=== PATIENT | female | born 1950 | race Hispanic/Latino ===

== ENCOUNTER 2019-02-03 17:28 | Inpatient (IN) | payer OTHER ==
[~2019-02-03 17:28] MED LIST: LASIX IV ONE
[2019-02-03] MEDS ORDERED: NACL 0.9% 1000 ML 1,000 ML IV ONE (17:50)
--- NOTE | 2019-02-03 17:54 | Emergency Department Report ---
ED Altered Mental Status HPI - General Stated Complaint: SEPSIS Time Seen by Provider: 02/03/19 17:43 - History of Present Illness Initial Comments: Patient is unknown age, unknown medical history. EMS stated that neighbors called 911 because patient with a wheelchair came to the door and stating that his is not responding well, unknown time. EMS stated that when they walked into the house they found the patient on the ground with decre ase in responsiveness, with a blood pressure of 80/42 with a low grade temperature. House is filthy and there is a lot of feces on the floor. Upon arrival to the ER patient is obtunded that she respond to her name. Sepsis protocol initiated. MD Complaint: altered mental status, decreased responsiveness - Related Data Allergies Allergy/AdvReac Type Severity Reaction Status Date / Time No Known Allergies Allergy Unverified 02/03/19 18:28 ED Review of Systems ROS: Stated complaint: SEPSIS Other details as noted in HPI Comment: Unobtainable due to pts medical conditions ED Physical Exam - General General appearance: obtunded - Head Head exam: Present: atraumatic, normocephalic, normal inspection - Eye Eye exam: Present: normal appearance, other (pale conjuctiva) - ENT ENT exam: Present: mucous membranes dry - Neck Neck exam: Present: normal inspection, full ROM. Absent: tenderness, meningismus, lymphadenopathy, thyromegaly - Respiratory Respiratory exam: Present: normal lung sounds bilaterally - Cardiovascular Cardiovascular Exam: Present: tachycardia - GI/Abdominal GI/Abdominal exam: Present: soft, normal bowel sounds. Absent: distended, tenderness, guarding, rebound, rigid, organomegaly, mass, bruit, pulsatile mass, hernia - Rectal Rectal exam: Present: normal inspection, normal rectal tone, heme (+) stool, black stool. Absent: bloody stool, fecal impaction, hemorrhoids, mass, tenderness - Extremities Exam Extremities exam: Present: normal inspection, full ROM, normal capillary refill - Back Exam Back exam: Present: normal inspection, full ROM. Absent: CVA tenderness (R), CVA tenderness (L), muscle spasm, paraspinal tenderness, vertebral tenderness - Neurological Exam Neurological exam: Present: altered - Skin Skin exam: Present: dry, intact - Assessment Assessment Interval: Baseline - Level of Consciousness 1a. Level of Consciousness: arousable/minor stimuli - LOC Questions 1b. LOC Questions: answers 1 question correctly - LOC Command 1c. LOC Commands: performs 1 task correctly - Best Gaze 2. Best Gaze: normal - Visual 3. Visual: no visual loss - Facial Palsy 4. Facial Palsy: normal symmetrical movement - Motor Arm 5a. Motor Arm Left: no drift 5b. Motor Arm Right: no drift - Motor Leg 6a. Motor Leg Left: no drift 6b. Motor Leg Right: no drift - Limb Ataxia 7. Limb Ataxia: absent - Sensory 8. Sensory: normal - Best Language 9. Best Language: no aphasia - Dysarthria 10. Dysarthria: normal - Extinction and Inattention 11. Extinction/Inattention: no abnormality - Scoring Total Score: 3 Stroke Severity: Minor Stroke ED Course Vital Signs 02/03/19 02/03/19 02/03/19 17:42 18:00 18:39 Temperature Pulse Rate 92 H 91 H Pulse Rate [ Bilateral] Pulse Rate [ From Monitor] Respiratory 20 21 Rate Respiratory Rate [Bilateral ] Blood Pressure 96/37 Blood Pressure [Right] O2 Sat by Pulse Oximetry 02/03/19 02/03/19 02/03/19 19:00 19:14 20:01 Temperature 98.2 F Pulse Rate 97 H 101 H Pulse Rate [ Bilateral] Pulse Rate [ From Monitor] Respiratory 24 23 Rate Respiratory Rate [Bilateral ] Blood Pressure 99/45 Blood Pressure 98/35 [Right] O2 Sat by Pulse 97 99 Oximetry 02/03/19 02/03/19 02/03/19 20:35 20:42 20:54 Temperature Pulse Rate 103 H 97 H Pulse Rate [ 102 H Bilateral] Pulse Rate [ From Monitor] Respiratory 22 16 Rate Respiratory 23 Rate [Bilateral ] Blood Pressure Blood Pressure 99/38 [Right] O2 Sat by Pulse 94 Oximetry 02/03/19 02/03/19 02/03/19 21:00 21:09 21:15 Temperature Pulse Rate 95 H 98 H Pulse Rate [ 103 H Bilateral] Pulse Rate [ From Monitor] Respiratory 23 23 Rate Respiratory 28 H Rate [Bilateral ] Blood Pressure 94/33 87/28 Blood Pressure [Right] O2 Sat by Pulse 84 Oximetry 02/03/19 02/03/19 02/03/19 21:30 21:45 22:01 Temperature Pulse Rate 102 H 98 H 98 H Pulse Rate [ Bilateral] Pulse Rate [ From Monitor] Respiratory 28 H 15 20 Rate Respiratory Rate [Bilateral ] Blood Pressure 86/36 87/35 104/48 Blood Pressure [Right] O2 Sat by Pulse 100 100 95 Oximetry 02/03/19 02/03/19 02/03/19 22:15 22:31 22:36 Temperature Pulse Rate 94 H 88 Pulse Rate [ Bilateral] Pulse Rate [ 88 From Monitor] Respiratory 23 22 40 H Rate Respiratory Rate [Bilateral ] Blood Pressure 104/48 138/85 Blood Pressure [Right] O2 Sat by Pulse 63 L 100 78 L Oximetry 02/03/19 02/03/19 02/03/19 22:45 23:24 23:50 Temperature Pulse Rate 85 107 H 106 H Pulse Rate [ Bilateral] Pulse Rate [ From Monitor] Respiratory 14 38 H 35 H Rate Respiratory Rate [Bilateral ] Blood Pressure 144/100 145/82 145/82 Blood Pressure [Right] O2 Sat by Pulse 99 93 Oximetry 02/04/19 00:00 Temperature 97.5 F L Pulse Rate Pulse Rate [ Bilateral] Pulse Rate [ From Monitor] Respiratory Rate Respiratory Rate [Bilateral ] Blood Pressure Blood Pressure [Right] O2 Sat by Pulse Oximetry - Central Line Placement Right Femoral Consent Obtained: emergent situation Time Out Performed: Yes Patient Placed on Monitor/Pulse Ox: Yes Prep: mask, gown, gloves Central Line Prep: Povidone-Iodine 1%, Chlorhexidine scrub, sterile drapes applied Local Anesthesia Used: Lidocaine 2% Central Line Lumen Inserted: triple Central Line Position: good blood return, all ports aspirated, flus, sutured in place with 2-0 Dressing Applied: Tegaderm, sterile gauze/tape Patient Tolerated Procedure: well, no complications Complications: none - Lab Data Result diagrams: 02/04/19 04:35 02/04/19 10:59 Lab Results 02/03/19 02/03/19 02/03/19 Range/Units 02:57 17:48 18:06 WBC 6.3 (4.5-11.0) K/mm3 RBC 0.88 L (3.65-5.03) M/mm3 Hgb 1.9 L* (10.1-14.3) gm/dl Hct 7.1 L* (30.3-42.9) % MCV 81 (79-97) fl MCH 22 L (28-32) pg MCHC 27 L (30-34) % RDW 23.3 H (13.2-15.2) % Plt Count 489 H (140-440) K/mm3 Lymph % (Auto) 17.6 (13.4-35.0) % [place] % (Auto) 10.1 H (0.0-7.3) % Eos % (Auto) 0.1 (0.0-4.3) % Baso % (Auto) 1.0 (0.0-1.8) % Lymph # 1.1 L (1.2-5.4) K/mm3 [place] # 0.6 (0.0-0.8) K/mm3 Eos # 0.0 (0.0-0.4) K/mm3 Baso # 0.1 (0.0-0.1) K/mm3 Seg Neutrophils % 71.2 H (40.0-70.0) % Seg Neutrophils # 4.5 (1.8-7.7) K/mm3 PT (12.2-14.9) Sec. INR (0.87-1.13) APTT (24.2-36.6) Sec. Sodium (137-145) mmol/L Potassium (3.6-5.0) mmol/L Chloride (98-107) mmol/L Carbon Dioxide (22-30) mmol/L Anion Gap mmol/L BUN (7-17) mg/dL Creatinine (0.7-1.2) mg/dL Estimated GFR ml/min BUN/Creatinine Ratio % Glucose (65-100) mg/dL POC Glucose 98 (70-105) Lactic Acid (0.7-2.0) mmol/L Calcium (8.4-10.2) mg/dL Total Bilirubin (0.1-1.2) mg/dL AST (5-40) units/L ALT (7-56) units/L Alkaline Phosphatase (35-129) units/L Troponin T (0.00-0.029) ng/mL NT-Pro-B Natriuret Pep (0-900) pg/mL Total Protein (6.3-8.2) g/dL Albumin (3.9-5) g/dL Albumin/Globulin Ratio % Triglycerides (2-149) mg/dL Cholesterol (50-199) mg/dL LDL Cholesterol Direct (50-130) mg/dL HDL Cholesterol (40-59) mg/dL Cholesterol/HDL Ratio % Urine Color Yellow (Yellow) Urine Turbidity Clear (Clear) Urine pH 6.0 (5.0-7.0) Ur Specific [place] 1.011 (1.003-1.030) Urine Protein <15 mg/dl (Negative) mg/dL Urine Glucose (UA) Neg (Negative) mg/dL Urine Ketones Neg (Negative) mg/dL Urine Blood Neg (Negative) Urine Nitrite Neg (Negative) Urine Bilirubin Neg (Negative) Urine Urobilinogen < 2.0 (<2.0) mg/dL Ur Leukocyte Esterase Neg (Negative) Urine WBC (Auto) 7.0 H (0.0-6.0) /HPF Urine RBC (Auto) 8.0 (0.0-6.0) /HPF U Epithel Cells (Auto) 1.0 (0-13.0) /HPF Urine Bacteria (Auto) 2+ (Negative) /HPF Hyaline Casts 22 /LPF Urine Mucus 3+ /HPF Blood Type Antibody Screen Crossmatch 02/03/19 02/03/19 02/03/19 Range/Units 18:06 18:06 18:08 WBC (4.5-11.0) K/mm3 RBC (3.65-5.03) M/mm3 Hgb (10.1-14.3) gm/dl Hct (30.3-42.9) % MCV (79-97) fl MCH (28-32) pg MCHC (30-34) % RDW (13.2-15.2) % Plt Count (140-440) K/mm3 Lymph % (Auto) (13.4-35.0) % [place] % (Auto) (0.0-7.3) % Eos % (Auto) (0.0-4.3) % Baso % (Auto) (0.0-1.8) % Lymph # (1.2-5.4) K/mm3 [place] # (0.0-0.8) K/mm3 Eos # (0.0-0.4) K/mm3 Baso # (0.0-0.1) K/mm3 Seg Neutrophils % (40.0-70.0) % Seg Neutrophils # (1.8-7.7) K/mm3 PT (12.2-14.9) Sec. INR (0.87-1.13) APTT (24.2-36.6) Sec. Sodium 145 (137-145) mmol/L Potassium 3.3 L (3.6-5.0) mmol/L Chloride 100.9 (98-107) mmol/L Carbon Dioxide 17 L (22-30) mmol/L Anion Gap 30 mmol/L BUN 16 (7-17) mg/dL Creatinine 0.9 (0.7-1.2) mg/dL Estimated GFR 58 ml/min BUN/Creatinine Ratio 18 % Glucose 94 (65-100) mg/dL POC Glucose (70-105) Lactic Acid (0.7-2.0) mmol/L Calcium 7.9 L (8.4-10.2) mg/dL Total Bilirubin 0.30 (0.1-1.2) mg/dL AST 35 (5-40) units/L ALT 27 (7-56) units/L Alkaline Phosphatase 117 (35-129) units/L Troponin T 0.134 H* (0.00-0.029) ng/mL NT-Pro-B Natriuret Pep 9160 H (0-900) pg/mL Total Protein 5.1 L (6.3-8.2) g/dL Albumin 2.8 L (3.9-5) g/dL Albumin/Globulin Ratio 1.2 % Triglycerides 164 H (2-149) mg/dL Cholesterol 125 (50-199) mg/dL LDL Cholesterol Direct 75 (50-130) mg/dL HDL Cholesterol 31 L (40-59) mg/dL Cholesterol/HDL Ratio 4.03 % Urine Color (Yellow) Urine Turbidity (Clear) Urine pH (5.0-7.0) Ur Specific [place] (1.003-1.030) Urine Protein (Negative) mg/dL Urine Glucose (UA) (Negative) mg/dL Urine Ketones (Negative) mg/dL Urine Blood (Negative) Urine Nitrite (Negative) Urine Bilirubin (Negative) Urine Urobilinogen (<2.0) mg/dL Ur Leukocyte Esterase (Negative) Urine WBC (Auto) (0.0-6.0) /HPF Urine RBC (Auto) (0.0-6.0) /HPF U Epithel Cells (Auto) (0-13.0) /HPF Urine Bacteria (Auto) (Negative) /HPF Hyaline Casts /LPF Urine Mucus /HPF Blood Type A POSITIVE Antibody Screen Negative Crossmatch See Detail 02/03/19 02/03/19 02/03/19 Range/Units 18:08 19:24 19:24 WBC (4.5-11.0) K/mm3 RBC (3.65-5.03) M/mm3 Hgb (10.1-14.3) gm/dl Hct (30.3-42.9) % MCV (79-97) fl MCH (28-32) pg MCHC (30-34) % RDW (13.2-15.2) % Plt Count (140-440) K/mm3 Lymph % (Auto) (13.4-35.0) % [place] % (Auto) (0.0-7.3) % Eos % (Auto) (0.0-4.3) % Baso % (Auto) (0.0-1.8) % Lymph # (1.2-5.4) K/mm3 [place] # (0.0-0.8) K/mm3 Eos # (0.0-0.4) K/mm3 Baso # (0.0-0.1) K/mm3 Seg Neutrophils % (40.0-70.0) % Seg Neutrophils # (1.8-7.7) K/mm3 PT 19.3 H (12.2-14.9) Sec. INR 1.52 H (0.87-1.13) APTT 30.3 (24.2-36.6) Sec. Sodium (137-145) mmol/L Potassium (3.6-5.0) mmol/L Chloride (98-107) mmol/L Carbon Dioxide (22-30) mmol/L Anion Gap mmol/L BUN (7-17) mg/dL Creatinine (0.7-1.2) mg/dL Estimated GFR ml/min BUN/Creatinine Ratio % Glucose (65-100) mg/dL POC Glucose (70-105) Lactic Acid 9.90 H* (0.7-2.0) mmol/L Calcium (8.4-10.2) mg/dL Total Bilirubin (0.1-1.2) mg/dL AST (5-40) units/L ALT (7-56) units/L Alkaline Phosphatase (35-129) units/L Troponin T 0.139 H* (0.00-0.029) ng/mL NT-Pro-B Natriuret Pep (0-900) pg/mL Total Protein (6.3-8.2) g/dL Albumin (3.9-5) g/dL Albumin/Globulin Ratio % Triglycerides (2-149) mg/dL Cholesterol (50-199) mg/dL LDL Cholesterol Direct (50-130) mg/dL HDL Cholesterol (40-59) mg/dL Cholesterol/HDL Ratio % Urine Color (Yellow) Urine Turbidity (Clear) Urine pH (5.0-7.0) Ur Specific [place] (1.003-1.030) Urine Protein (Negative) mg/dL Urine Glucose (UA) (Negative) mg/dL Urine Ketones (Negative) mg/dL Urine Blood (Negative) Urine Nitrite (Negative) Urine Bilirubin (Negative) Urine Urobilinogen (<2.0) mg/dL Ur Leukocyte Esterase (Negative) Urine WBC (Auto) (0.0-6.0) /HPF Urine RBC (Auto) (0.0-6.0) /HPF U Epithel Cells (Auto) (0-13.0) /HPF Urine Bacteria (Auto) (Negative) /HPF Hyaline Casts /LPF Urine Mucus /HPF Blood Type Antibody Screen Crossmatch 02/03/19 Range/Units 19:24 WBC (4.5-11.0) K/mm3 RBC (3.65-5.03) M/mm3 Hgb (10.1-14.3) gm/dl Hct (30.3-42.9) % MCV (79-97) fl MCH (28-32) pg MCHC (30-34) % RDW (13.2-15.2) % Plt Count (140-440) K/mm3 Lymph % (Auto) (13.4-35.0) % [place] % (Auto) (0.0-7.3) % Eos % (Auto) (0.0-4.3) % Baso % (Auto) (0.0-1.8) % Lymph # (1.2-5.4) K/mm3 [place] # (0.0-0.8) K/mm3 Eos # (0.0-0.4) K/mm3 Baso # (0.0-0.1) K/mm3 Seg Neutrophils % (40.0-70.0) % Seg Neutrophils # (1.8-7.7) K/mm3 PT (12.2-14.9) Sec. INR (0.87-1.13) APTT (24.2-36.6) Sec. Sodium (137-145) mmol/L Potassium (3.6-5.0) mmol/L Chloride (98-107) mmol/L Carbon Dioxide (22-30) mmol/L Anion Gap mmol/L BUN (7-17) mg/dL Creatinine (0.7-1.2) mg/dL Estimated GFR ml/min BUN/Creatinine Ratio % Glucose (65-100) mg/dL POC Glucose (70-105) Lactic Acid 6.30 H* (0.7-2.0) mmol/L Calcium (8.4-10.2) mg/dL Total Bilirubin (0.1-1.2) mg/dL AST (5-40) units/L ALT (7-56) units/L Alkaline Phosphatase (35-129) units/L Troponin T (0.00-0.029) ng/mL NT-Pro-B Natriuret Pep (0-900) pg/mL Total Protein (6.3-8.2) g/dL Albumin (3.9-5) g/dL Albumin/Globulin Ratio % Triglycerides (2-149) mg/dL Cholesterol (50-199) mg/dL LDL Cholesterol Direct (50-130) mg/dL HDL Cholesterol (40-59) mg/dL Cholesterol/HDL Ratio % Urine Color (Yellow) Urine Turbidity (Clear) Urine pH (5.0-7.0) Ur Specific [place] (1.003-1.030) Urine Protein (Negative) mg/dL Urine Glucose (UA) (Negative) mg/dL Urine Ketones (Negative) mg/dL Urine Blood (Negative) Urine Nitrite (Negative) Urine Bilirubin (Negative) Urine Urobilinogen (<2.0) mg/dL Ur Leukocyte Esterase (Negative) Urine WBC (Auto) (0.0-6.0) /HPF Urine RBC (Auto) (0.0-6.0) /HPF U Epithel Cells (Auto) (0-13.0) /HPF Urine Bacteria (Auto) (Negative) /HPF Hyaline Casts /LPF Urine Mucus /HPF Blood Type Antibody Screen Crossmatch - Radiology Data Radiology results: report reviewed Chest x-ray show pulmonary vascular congestion. - Medical Decision Making Patient is unknown age, unknown medical history. EMS stated that neighbors called 911 because patient with a wheelchair came to the door and stating that his is not responding well, unknown time. EMS stated that when they walked into the house they found the patient on the ground with decrease in responsiveness, with a blood pressure of 80/42 with a low grade temperature. House is filthy and there is a lot of feces on the floor. Upon arrival to the ER patient is obtunded that she respond to her name. Sepsis protocol initiated. Patient found to have a hemoglobin of 1.9 and hematocrit of 7.1. Stool guaiac is positive. Vision also found to have a lactic acid of 9.9. Patient started on normal saline. 2 units of PRBC. I discussed the patient is Dr. Buck Gonzalez from gastroenterology, he advised to start PPI drip and keep patient nothing by mouth after midnight for possible endoscopy in the morning. I discussed the patient is Dr. Robles, he accepted the patient to be admitted to medical service and advised to discuss with the nurse practitioner Karen is present at the time of the discussion. Critical Care Time: Yes Critical care time in (mins) excluding proc time.: 45 Critical care attestation.: If time is entered above; I have spent that time in minutes in the direct care of this critically ill patient, excluding procedure time. ED Disposition Clinical Impression: Sepsis, Gastrointestinal hemorrhage, Altered mental status, COPD exacerbation, CHF exacerbation Disposition: OP ADMIT IP TO THIS HOSP Is pt being admited?: Yes Condition: Stable
--- NOTE | 2019-02-03 18:39 | XRay Report ---
PROCEDURE: XR CHEST 1V AP TECHNIQUE: Chest radiograph single view. HISTORY: sepsis COMPARISONS: None . FINDINGS: Heart: Heart is enlarged. Mediastinum/Vessels: Central vascular congestive changes noted. Lungs/Pleural space: No focal consolidation or effusion. Bony thorax: No acute osseous abnormality. Life support devices: None. IMPRESSION: Central vascular congestive changes. Cardiomegaly. If symptoms persist or worsen, CT exam should be considered for further evaluation. This document is electronically signed by Donna Garcia MD., Feb 03 2019 06:37:30 PM ET
[2019-02-03 18:47] LABS: Red Blood Count 0.88 M/mm3 (3.65-5.03)
[2019-02-03 18:49] LABS: Hematocrit 7.1 % (30.3-42.9); Hemoglobin 1.9 gm/dl (10.1-14.3); Mean Corpuscular HGB Conc 27 % (30-34); Mean Corpuscular Volume 81 fl (79-97); Platelet Count 489 K/mm3 (140-440); Red Cell Distribution Width 23.3 % (13.2-15.2)
[2019-02-03 18:50] LABS: Basophils # (Auto) 0.1 K/mm3 (0.0-0.1); Eosinophils % (Auto) 0.1 % (0.0-4.3); Lymphocytes # (Auto) 1.1 K/mm3 (1.2-5.4); Lymphocytes % (Auto) 17.6 % (13.4-35.0); Monocytes # (Auto) 0.6 K/mm3 (0.0-0.8); Monocytes % (Auto) 10.1 % (0.0-7.3)
[2019-02-03] MEDS ORDERED: NACL 0.9% 500 ML 500 ML IV ONE ×2 (18:58→21:36)
[2019-02-03 18:59] LABS: Albumin 2.8 g/dL (3.9-5); Calcium 7.9 mg/dL (8.4-10.2)
[2019-02-03] MEDS ORDERED: ZOSYN/NS 2.25 GM/50ML 2.25 GM/50 ML BAG IV ONE (19:00)
[2019-02-03 19:22] LABS: Chol/HDL Ratio 4.03 %
[2019-02-03 19:53] LABS: INR 1.52 (0.87-1.13); Partial Thromboplastin Time 30.3 Sec. (24.2-36.6)
[2019-02-03] MEDS ORDERED: ATROVENT IH ONE (19:59)
[2019-02-03] MEDS ORDERED: PROVENTIL IH ONE (20:00)
[2019-02-03] MEDS ORDERED: REGLAN IV PRN (20:27)
[2019-02-03] MEDS ORDERED: SODIUM CHLORIDE FLUSH SYRINGE 10 ML IV PRN (20:27)
--- NOTE | 2019-02-03 20:45 | History and Physical Report ---
<AMIRAH MERINO - Last Filed: 02/04/19 01:00> History of Present Illness Date of examination: 02/03/19 Date of admission: 02/03/2019 Chief complaint: Postural mental status, fall, respiratory distress History of present illness: Patient is about 71-year-old female with PMHx of CHF, COPD, who was brought to the ER by EMS after a fall at home, altered mental status, respiratory distress. Per EMS patient was found in severe respiratory distress, laying on the floor and cover in her feces. According to EMS the had asked a neighbor to call EMS because the patient fell on the floor and he was unable to pick her up, they don't have a phone (the reports that he is 80 years old and he is 9 years older than her, he states that she had been sick for a few days, she had trouble breathing, and he had been taking a lot of "goody bags" for pain). On arrival to the ER patient was lethargic, responded to name, her blood pressure was 80/54, the temperature was 97.1, respiration was 40 BPM, she had h&h of 1.9/7.1, GI was consulted and she is admitted for acute GI bleed, acute blood loss anemia, CHF (BNP was 9100) and COPD exacerbation. Past History Past Medical History: COPD, heart failure, hypertension Past Surgical History: No surgical history Social history: , lives with family (spouse) Family history: no significant family history Medications and Allergies Allergies Allergy/AdvReac Type Severity Reaction Status Date / Time No Known Allergies Allergy Unverified 02/03/19 18:28 Home Medications Medication Instructions Recorded Confirmed Last Taken Type No Known Home Medications [No 02/07/19 02/07/19 Unknown History Reported Home Medications] Active Meds: Active Medications Pantoprazole Sodium 80 mg/ (Sodium Chloride) 100 mls @ 10 mls/hr IV DIRECT JOEL Review of Systems ROS unobtainable: due to mental status (5. Mental status) Exam - Constitutional Vitals: Temp Pulse Resp BP Pulse Ox 98.2 F 103 H 22 99/38 94 02/03/19 19:00 02/03/19 20:35 02/03/19 20:35 02/03/19 20:35 02/03/19 20:35 General appearance: Present: severe distress - EENT ENT: hearing intact - Neck Neck: Present: normal ROM - Respiratory Respiratory effort: normal Respiratory: bilateral: rhonchi - Cardiovascular Rhythm: regular Heart Sounds: Present: S1 & S2 - Extremities Extremities: no ischemia Peripheral Pulses: within normal limits - Abdominal General gastrointestinal: Present: non-tender, non-distended - Rectal Rectal Exam: deferred - Integumentary Integumentary: Present: warm, dry - Musculoskeletal Musculoskeletal: generalized weakness - Psychiatric Psychiatric: agitated - Neurologic Neurologic: moves all extremities Results - Labs CBC & Chem 7: 02/03/19 18:06 02/03/19 18:08 Labs: Laboratory Last Values WBC 6.3 K/mm3 (4.5-11.0) 02/03/19 18:06 RBC 0.88 M/mm3 (3.65-5.03) L 02/03/19 18:06 Hgb 1.9 gm/dl (10.1-14.3) L* 02/03/19 18:06 Hct 7.1 % (30.3-42.9) L* 02/03/19 18:06 MCV 81 fl (79-97) 02/03/19 18:06 MCH 22 pg (28-32) L 02/03/19 18:06 MCHC 27 % (30-34) L 02/03/19 18:06 RDW 23.3 % (13.2-15.2) H 02/03/19 18:06 Plt Count 489 K/mm3 (140-440) H 02/03/19 18:06 Lymph % (Auto) 17.6 % (13.4-35.0) 02/03/19 18:06 [place] % (Auto) 10.1 % (0.0-7.3) H 02/03/19 18:06 Eos % (Auto) 0.1 % (0.0-4.3) 02/03/19 18:06 Baso % (Auto) 1.0 % (0.0-1.8) 02/03/19 18:06 Lymph # 1.1 K/mm3 (1.2-5.4) L 02/03/19 18:06 [place] # 0.6 K/mm3 (0.0-0.8) 02/03/19 18:06 Eos # 0.0 K/mm3 (0.0-0.4) 02/03/19 18:06 Baso # 0.1 K/mm3 (0.0-0.1) 02/03/19 18:06 Seg Neutrophils % 71.2 % (40.0-70.0) H 02/03/19 18:06 Seg Neutrophils # 4.5 K/mm3 (1.8-7.7) 02/03/19 18:06 PT 19.3 Sec. (12.2-14.9) H 02/03/19 19:24 INR 1.52 (0.87-1.13) H 02/03/19 19:24 APTT 30.3 Sec. (24.2-36.6) 02/03/19 19:24 POC ABG pH 7.515 (7.35-7.45) H 02/03/19 20:30 POC ABG pO2 121 (80-105) H 02/03/19 20:30 POC ABG HCO3 16.5 (22-26 mml/L) 02/03/19 20:30 POC ABG Total CO2 17 (23-27mmol/L) 02/03/19 20:30 POC ABG O2 Sat 99 02/03/19 20:30 POC ABG Base Excess -6 ((-2) - (+3)mmol/L) 02/03/19 20:30 30 % 02/03/19 20:30 Sodium 145 mmol/L (137-145) 02/03/19 18:08 Potassium 3.3 mmol/L (3.6-5.0) L 02/03/19 18:08 Chloride 100.9 mmol/L (98-107) 02/03/19 18:08 Carbon Dioxide 17 mmol/L (22-30) L 02/03/19 18:08 30 mmol/L 02/03/19 18:08 BUN 16 mg/dL (7-17) 02/03/19 18:08 0.9 mg/dL (0.7-1.2) 02/03/19 18:08 Estimated GFR 58 ml/min 02/03/19 18:08 18 % 02/03/19 18:08 Glucose 94 mg/dL (65-100) 02/03/19 18:08 POC Glucose 98 (70-105) 02/03/19 17:48 Lactic Acid 6.30 mmol/L (0.7-2.0) H* 02/03/19 19:24 Calcium 7.9 mg/dL (8.4-10.2) L 02/03/19 18:08 0.30 mg/dL (0.1-1.2) 02/03/19 18:08 AST 35 units/L (5-40) 02/03/19 18:08 ALT 27 units/L (7-56) 02/03/19 18:08 117 units/L (35-129) 02/03/19 18:08 0.139 ng/mL (0.00-0.029) H* 02/03/19 19:24 NT-Pro-B Natriuret Pep 9160 pg/mL (0-900) H 02/03/19 18:06 5.1 g/dL (6.3-8.2) L 02/03/19 18:08 2.8 g/dL (3.9-5) L 02/03/19 18:08 1.2 % 02/03/19 18:08 Triglycerides 164 mg/dL (2-149) H 02/03/19 18:08 Cholesterol 125 mg/dL (50-199) 02/03/19 18:08 75 mg/dL (50-130) 02/03/19 18:08 31 mg/dL (40-59) L 02/03/19 18:08 4.03 % 02/03/19 18:08 Blood Type A POSITIVE 02/03/19 18:06 Antibody Screen Negative 02/03/19 18:06 Crossmatch See Detail 02/03/19 18:06 Assessment and Plan Assessment and plan: Patient is a 70-year-old female (unsure of actual age) brought by with acute respiratory distress in poor condition, she is being treated for GI bleed, CHF, respiratory distress, she will be admitted to ICU for management. 1. Acute encephalopathy 2. Severe respiratory alkalosis 3. Acute GI bleed 4. Acute blood loss anemia (due to #2) 5. Hypokalemia 6. CHF with acute exacerbation (last echo and EF unknown) 7. COPD Plan: Patient is admitted for acute prescribed to be distress Stop start patient on BiPAP to protect airway Consult GI for acute GI bleed 4 units of packed RBCs IV Lasix after fourth bag if BP stable Repeat CBC after the last bag Avoid NSAIDs Keep NPO Every replacement BMP in the a.m. No DVT prophylaxis (GI bleed) Advance Directives: Yes Contraindication Mechanical VTE Prophylaxis: Contraindicated (acute GI bleed) Plan of care discussed with patient/family: Yes <NAVID CISNEROS - Last Filed: 02/08/19 22:33> History of Present Illness Date of admission: 02/03/19 20:30 Medications and Allergies Active Meds: Active Medications Albuterol/Ipratropium (Duoneb *Not For Prn Use*) 1 ampul IH Q6HRT [facility] Pantoprazole Sodium 80 mg/ (Sodium Chloride) 100 mls @ 10 mls/hr IV DIRECT [facility] Last Admin: 02/03/19 21:18 Dose: 8 mg/hr, 10 mls/hr Documented by: Potassium Chloride (Kcl 10meq/100ml) 10 meq in 100 mls @ 100 mls/hr IV Q1H [facility] Stop: 02/04/19 05:59 Last Admin: 02/04/19 02:43 Dose: 100 mls/hr Documented by: Ondansetron HCl (Zofran) 4 mg IV Q8H PRN PRN Reason: Nausea And Vomiting Sodium Chloride (Sodium Chloride Flush Syringe 10 Ml) 10 ml IV BID [facility] Last Admin: 02/03/19 22:48 Dose: 10 ml Documented by: Sodium Chloride (Sodium Chloride Flush Syringe 10 Ml) 10 ml IV PRN PRN PRN Reason: LINE FLUSH Exam - Constitutional Vitals: Temp Pulse Resp BP Pulse Ox 97.5 F L 106 H 38 H 145/82 90 02/04/19 00:00 02/03/19 23:50 02/04/19 02:36 02/03/19 23:50 02/04/19 02:36 Results - Labs CBC & Chem 7: 02/08/19 04:26 02/08/19 04:26 Labs: Laboratory Last Values WBC 6.3 K/mm3 (4.5-11.0) 02/03/19 18:06 RBC 0.88 M/mm3 (3.65-5.03) L 02/03/19 18:06 Hgb 11.5 gm/dl (10.1-14.3) D 02/04/19 00:27 Hct 35.6 % (30.3-42.9) D 02/04/19 00:27 MCV 81 fl (79-97) 02/03/19 18:06 MCH 22 pg (28-32) L 02/03/19 18:06 MCHC 27 % (30-34) L 02/03/19 18:06 RDW 23.3 % (13.2-15.2) H 02/03/19 18:06 Plt Count 489 K/mm3 (140-440) H 02/03/19 18:06 Lymph % (Auto) 17.6 % (13.4-35.0) 02/03/19 18:06 [place] % (Auto) 10.1 % (0.0-7.3) H 02/03/19 18:06 Eos % (Auto) 0.1 % (0.0-4.3) 02/03/19 18:06 Baso % (Auto) 1.0 % (0.0-1.8) 02/03/19 18:06 Lymph # 1.1 K/mm3 (1.2-5.4) L 02/03/19 18:06 [place] # 0.6 K/mm3 (0.0-0.8) 02/03/19 18:06 Eos # 0.0 K/mm3 (0.0-0.4) 02/03/19 18:06 Baso # 0.1 K/mm3 (0.0-0.1) 02/03/19 18:06 Seg Neutrophils % 71.2 % (40.0-70.0) H 02/03/19 18:06 Seg Neutrophils # 4.5 K/mm3 (1.8-7.7) 02/03/19 18:06 PT 19.3 Sec. (12.2-14.9) H 02/03/19 19:24 INR 1.52 (0.87-1.13) H 02/03/19 19:24 APTT 30.3 Sec. (24.2-36.6) 02/03/19 19:24 POC ABG pH 7.515 (7.35-7.45) H 02/03/19 20:30 POC ABG pO2 121 (80-105) H 02/03/19 20:30 POC ABG HCO3 16.5 (22-26 mml/L) 02/03/19 20:30 POC ABG Total CO2 17 (23-27mmol/L) 02/03/19 20:30 POC ABG O2 Sat 99 02/03/19 20:30 POC ABG Base Excess -6 ((-2) - (+3)mmol/L) 02/03/19 20:30 30 % 02/03/19 20:30 Sodium 145 mmol/L (137-145) 02/03/19 18:08 Potassium 3.3 mmol/L (3.6-5.0) L 02/03/19 18:08 Chloride 100.9 mmol/L (98-107) 02/03/19 18:08 Carbon Dioxide 17 mmol/L (22-30) L 02/03/19 18:08 30 mmol/L 02/03/19 18:08 BUN 16 mg/dL (7-17) 02/03/19 18:08 0.9 mg/dL (0.7-1.2) 02/03/19 18:08 Estimated GFR 58 ml/min 02/03/19 18:08 18 % 02/03/19 18:08 Glucose 94 mg/dL (65-100) 02/03/19 18:08 POC Glucose 98 (70-105) 02/03/19 17:48 Lactic Acid 5.70 mmol/L (0.7-2.0) H* 02/04/19 01:18 Calcium 7.9 mg/dL (8.4-10.2) L 02/03/19 18:08 0.30 mg/dL (0.1-1.2) 02/03/19 18:08 AST 35 units/L (5-40) 02/03/19 18:08 ALT 27 units/L (7-56) 02/03/19 18:08 117 units/L (35-129) 02/03/19 18:08 0.139 ng/mL (0.00-0.029) H* 02/03/19 19:24 NT-Pro-B Natriuret Pep 9160 pg/mL (0-900) H 02/03/19 18:06 5.1 g/dL (6.3-8.2) L 02/03/19 18:08 2.8 g/dL (3.9-5) L 02/03/19 18:08 1.2 % 02/03/19 18:08 Triglycerides 164 mg/dL (2-149) H 02/03/19 18:08 Cholesterol 125 mg/dL (50-199) 02/03/19 18:08 75 mg/dL (50-130) 02/03/19 18:08 31 mg/dL (40-59) L 02/03/19 18:08 4.03 % 02/03/19 18:08 Yellow (Yellow) 02/03/19 02:57 Clear (Clear) 02/03/19 02:57 6.0 (5.0-7.0) 02/03/19 02:57 Ur Specific [place] 1.011 (1.003-1.030) 02/03/19 02:57 <15 mg/dl mg/dL (Negative) 02/03/19 02:57 Neg mg/dL (Negative) 02/03/19 02:57 Neg mg/dL (Negative) 02/03/19 02:57 Neg (Negative) 02/03/19 02:57 Neg (Negative) 02/03/19 02:57 Neg (Negative) 02/03/19 02:57 < 2.0 mg/dL (<2.0) 02/03/19 02:57 Ur Leukocyte Esterase Neg (Negative) 02/03/19 02:57 7.0 /HPF (0.0-6.0) H 02/03/19 02:57 8.0 /HPF (0.0-6.0) 02/03/19 02:57 U Epithel Cells (Auto) 1.0 /HPF (0-13.0) 02/03/19 02:57 2+ /HPF (Negative) 02/03/19 02:57 Hyaline Casts 22 /LPF 02/03/19 02:57 3+ /HPF 02/03/19 02:57 Blood Type A POSITIVE 02/03/19 18:06 Antibody Screen Negative 02/03/19 18:06 Crossmatch See Detail 02/03/19 18:06 Assessment and Plan Assessment and plan: 68-year-old woman with history of COPD was brought to the emergency room because she was weak for the last few days and passed out at home per the . He stated that over the last 5 years she is takes 3-4 Goody powder at night, has been having black stool. She complains of feeling cold and short of breath. In the emergency room she was extremely pale, hypotensive with systolic blood pre ssure in the 80s. Patient would upper GI bleed, severe blood loss anemia, she will be transfused rapidly red blood cells. Continue protonic drip, her Hemoccult was heme-positive, black stool, suspect gastric ulcer from NSAIDs. Hold all antihypertensives. Her cardiac enzymes is elevated, check serial cardiac enzymes, continue BiPAP. Her lactic acid is elevated, we'll continue empiric antibiotics for now. GI was consulted for the patient in the emergency room. The history is per the at bedside, the patient was unable to give a history. Prognosis guarded
[2019-02-03] MEDS: PROTONIX 80 MG in NACL 0.9% 100 ML IV SCH (21:18)
[2019-02-03] MEDS ORDERED: LASIX IV ONE (22:00)
[2019-02-03] MEDS ORDERED: LOPRESSOR PO SCH (22:00)
[2019-02-03] MEDS ORDERED: ZESTRIL PO SCH (22:00)
[2019-02-03] MEDS ORDERED: NACL 0.9% 500 ML 500 ML ONE (22:40)
[2019-02-03] MEDS: SODIUM CHLORIDE FLUSH SYRINGE 10 ML IV SCH (22:48)
[2019-02-03] MEDS ORDERED: HALDOL IM ONE (23:54)
[2019-02-04] MEDS ORDERED: LASIX ONE (00:14)
[2019-02-04] MEDS ORDERED: LASIX IV ONE (01:00)
--- NOTE | 2019-02-04 01:34 | Cat Scan Report ---
PROCEDURE: CT HEAD/BRAIN WO CON TECHNIQUE: Computerized tomography of the head was performed without contrast material. HISTORY: AMS COMPARISONS: None . FINDINGS: Skull and scalp: Normal . Paranasal sinuses: Normal . Ventricles and subarachnoid spaces: Parenchymal volume loss. Cerebrum: No evidence of hemorrhage, acute infarction or mass . Small vessel ischemic disease in the periventricular and subcortical regions. Cerebellum and brainstem: No evidence of hemorrhage, acute infarction or mass . Vasculature: Normal . IMPRESSION: No evidence of hemorrhage, acute infarction or mass . Small vessel ischemic disease in t he periventricular and subcortical regions. This document is electronically signed by Donna Garcia MD., Feb 04 2019 01:32:14 AM ET
[2019-02-04 01:44] LABS: Hematocrit 35.6 % (30.3-42.9); Hemoglobin 11.5 gm/dl (10.1-14.3)
[2019-02-04] MEDS: DUONEB *Not for PRN Use IH SCH ×3 (02:00→20:02)
[2019-02-04] MEDS: KCL 10MEQ/100ML 10 MEQ/100 ML BAG IV SCH ×4 (02:43→07:19)
[2019-02-04 03:26] LABS: Bacteria,Urine 2+ /HPF (Negative); Bilirubin,Urine NEG (Negative); Blood,Urine NEG (Negative); Color,Urine Yellow (Yellow); Hyaline Casts,Urine 22 /LPF; Mucus,Urine 3+ /HPF; Protein,Urine <15 mg/dL mg/dL (Negative); Urobilinogen,Urine < 2.0 mg/dL (<2.0)
[2019-02-04 05:08] LABS: Hematocrit 37.1 % (30.3-42.9); Hemoglobin 12.3 gm/dl (10.1-14.3); Mean Corpuscular HGB Conc 33 % (30-34); Mean Corpuscular Volume 82 fl (79-97); Platelet Count 384 K/mm3 (140-440); Red Blood Count 4.51 M/mm3 (3.65-5.03); Red Cell Distribution Width 15.9 % (13.2-15.2)
[2019-02-04 05:27] LABS: Calcium 7.9 mg/dL (8.4-10.2)
[2019-02-04] MEDS ORDERED: LASIX IV SCH (06:00)
[2019-02-04] MEDS: ZOSYN/NS 3.375GM/50ML 3.375 GM/50 ML BAG IV SCH ×3 (06:03→21:33)
[2019-02-04 06:47] LABS: Band Neutrophils # (Manual) 0.5 K/mm3; Basophils % (Manual) 0 % (0.0-1.8); Eosinophils % (Manual) 0 % (0.0-4.3); Monocytes % (Manual) 0 % (0.0-7.3); Platelet Estimate Consistent w Auto; Total Cells Counted 100
[2019-02-04] MEDS ORDERED: D5W/NS W/KCL 20MEQ 20 MEQ/1,000 ML BAG IV SCH (08:00)
[2019-02-04] MEDS: SODIUM CHLORIDE FLUSH SYRINGE 10 ML IV SCH (10:00)
--- NOTE | 2019-02-04 11:39 | Consultation ---
History of Present Illness Consult date: 02/04/19 Requesting physician: CHIDI VELA Reason for consult: other (Severe Sepsis; Acute Encephalopathy) History of present illness: PULMONARY/CCM CONSULT NOTE (Full dictation # [id number]) Please see dictated notes for full details Past History Past Medical History: COPD, heart failure, hypertension Past Surgical History: No surgical history Social history: , lives with family (spouse) Family history: no significant family history Medications and Allergies Allergies Allergy/AdvReac Type Severity Reaction Status Date / Time No Known Allergies Allergy Unverified 02/03/19 18:28 Active Meds: Active Medications Albuterol/Ipratropium (Duoneb *Not For Prn Use*) 1 ampul IH Q6HRT [facility] Last Admin: 02/04/19 08:30 Dose: 1 ampul Documented by: Pantoprazole Sodium 80 mg/ (Sodium Chloride) 100 mls @ 10 mls/hr IV DIRECT JOEL Last Admin: 02/03/19 21:18 Dose: 8 mg/hr, 10 mls/hr Documented by: Piperacillin Sod/Tazobactam Sod (Zosyn/Ns 3.375gm/50ml) 3.375 gm in 50 mls @ 100 mls/hr IV Q8HR JOEL Last Admin: 02/04/19 06:03 Dose: 100 mls/hr Documented by: Potassium Chloride/Dextrose/Sod Cl (D5w/0.45% Nacl/Kcl 30 Meq) 30 meq in 1,000 mls @ 75 mls/hr IV DIRECT JOEL Ondansetron HCl (Zofran) 4 mg IV Q8H PRN PRN Reason: Nausea And Vomiting Sodium Chloride (Sodium Chloride Flush Syringe 10 Ml) 10 ml IV BID [facility] Last Admin: 02/03/19 22:48 Dose: 10 ml Documented by: Sodium Chloride (Sodium Chloride Flush Syringe 10 Ml) 10 ml IV PRN PRN PRN Reason: LINE FLUSH Physical Examination Vital signs: Vital Signs Pulse 92 H 02/03/19 17:42 Results - Laboratory Findings CBC and BMP: 02/04/19 04:35 02/04/19 10:59 ABG POC ABG pH 7.515 (7.35-7.45) H 02/03/19 20:30 POC ABG pO2 121 (80-105) H 02/03/19 20:30 POC ABG HCO3 16.5 (22-26 mml/L) 02/03/19 20:30 POC ABG Total CO2 17 (23-27mmol/L) 02/03/19 20:30 POC ABG O2 Sat 99 02/03/19 20:30 PT/INR, D-dimer PT 19.3 Sec. (12.2-14.9) H 02/03/19 19:24 INR 1.52 (0.87-1.13) H 02/03/19 19:24 Abnormal lab findings: Abnormal Labs 02/03/19 02/03/19 02/03/19 02:57 18:06 18:06 WBC RBC 0.88 L Hgb 1.9 L* Hct 7.1 L* MCH 22 L MCHC 27 L RDW 23.3 H Plt Count 489 H [place] % (Auto) 10.1 H Lymph # 1.1 L Seg Neutrophils % 71.2 H Seg Neuts % (Manual) Lymphocytes % (Manual) Seg Neutrophils # Man Lymphocytes # (Manual) PT INR POC ABG pH POC ABG pO2 Sodium Potassium Carbon Dioxide Glucose Lactic Acid Calcium Troponin T NT-Pro-B Natriuret Pep 9160 H Total Protein Albumin Triglycerides HDL Cholesterol Urine WBC (Auto) 7.0 H Crossmatch 02/03/19 02/03/19 02/03/19 18:06 18:08 18:08 WBC RBC Hgb Hct MCH MCHC RDW Plt Count [place] % (Auto) Lymph # Seg Neutrophils % Seg Neuts % (Manual) Lymphocytes % (Manual) Seg Neutrophils # Man Lymphocytes # (Manual) PT INR POC ABG pH POC ABG pO2 Sodium Potassium 3.3 L Carbon Dioxide 17 L Glucose Lactic Acid 9.90 H* Calcium 7.9 L Troponin T 0.134 H* NT-Pro-B Natriuret Pep Total Protein 5.1 L Albumin 2.8 L Triglycerides 164 H HDL Cholesterol 31 L Urine WBC (Auto) Crossmatch See Detail 02/03/19 02/03/19 02/03/19 19:24 19:24 19:24 WBC RBC Hgb Hct MCH MCHC RDW Plt Count [place] % (Auto) Lymph # Seg Neutrophils % Seg Neuts % (Manual) Lymphocytes % (Manual) Seg Neutrophils # Man Lymphocytes # (Manual) PT 19.3 H INR 1.52 H POC ABG pH POC ABG pO2 Sodium Potassium Carbon Dioxide Glucose Lactic Acid 6.30 H* Calcium Troponin T 0.139 H* NT-Pro-B Natriuret Pep Total Protein Albumin Triglycerides HDL Cholesterol Urine WBC (Auto) Crossmatch 02/03/19 02/03/19 02/04/19 20:30 23:36 01:18 WBC RBC Hgb Hct MCH MCHC RDW Plt Count [place] % (Auto) Lymph # Seg Neutrophils % Seg Neuts % (Manual) Lymphocytes % (Manual) Seg Neutrophils # Man Lymphocytes # (Manual) PT INR POC ABG pH 7.515 H POC ABG pO2 121 H Sodium Potassium Carbon Dioxide Glucose Lactic Acid 6.50 H* 5.70 H* Calcium Troponin T NT-Pro-B Natriuret Pep Total Protein Albumin Triglycerides HDL Cholesterol Urine WBC (Auto) Crossmatch 02/04/19 02/04/19 02/04/19 04:35 04:35 04:35 WBC 17.5 H RBC Hgb Hct MCH 27 L MCHC RDW 15.9 H Plt Count [place] % (Auto) Lymph # Seg Neutrophils % Seg Neuts % (Manual) 96.0 H Lymphocytes % (Manual) 1.0 L Seg Neutrophils # Man 16.8 H Lymphocytes # (Manual) 0.2 L PT INR POC ABG pH POC ABG pO2 Sodium 147 H Potassium 3.2 L Carbon Dioxide 21 L Glucose 170 H Lactic Acid 3.60 H* Calcium 7.9 L Troponin T NT-Pro-B Natriuret Pep Total Protein Albumin Triglycerides HDL Cholesterol Urine WBC (Auto) Crossmatch
--- NOTE | 2019-02-04 12:49 | Gastroenterology Consultation ---
History of Present Illness - Reason for Consult Consult date: 02/04/19 GI bleed Requesting physician: OWEN STOCK - History of Present Illness Patient is a 71 y/o female with PMH of CHF, COPD, and HTN who was brought to ER by EMS after being found on the floor at home by family with decreased responsiveness and respiratory distress. Upon admission she was found to be severely anemic with H/H 1.9/7.1 and black heme + stool according to ER provider to which GI has been consulted. According to family report in ED, patient uses goody's powder heavily at home. She is currently in ICU, lethargic on BiPAP being treated for sepsis, CHF, and COPD exacerbation as well. No family at bedside. History obtained via chart review. No active signs of bleeding overnight or this am per nursing. No evidence of abd pain or N/V upon exam. Prior GI history unknown. No know hx of liver disease. Past History Past Medical History: COPD, heart failure, hypertension Past Surgical History: No surgical history Social history: , lives with family (spouse) Family history: no significant family history Medications and Allergies Allergies Allergy/AdvReac Type Severity Reaction Status Date / Time No Known Allergies Allergy Unverified 02/03/19 18:28 Active Meds: Active Medications Albuterol/Ipratropium (Duoneb *Not For Prn Use*) 1 ampul IH Q6HRT JOEL Last Admin: 02/04/19 08:30 Dose: 1 ampul Documented by: Pantoprazole Sodium 80 mg/ (Sodium Chloride) 100 mls @ 10 mls/hr IV DIRECT JOEL Last Admin: 02/03/19 21:18 Dose: 8 mg/hr, 10 mls/hr Documented by: Piperacillin Sod/Tazobactam Sod (Zosyn/Ns 3.375gm/50ml) 3.375 gm in 50 mls @ 100 mls/hr IV Q8HR JOEL Last Admin: 02/04/19 06:03 Dose: 100 mls/hr Documented by: Potassium Chloride/Dextrose/Sod Cl (D5w/0.45% Nacl/Kcl 30 Meq) 30 meq in 1,000 mls @ 75 mls/hr IV DIRECT JOEL Ondansetron HCl (Zofran) 4 mg IV Q8H PRN PRN Reason: Nausea And Vomiting Sodium Chloride (Sodium Chloride Flush Syringe 10 Ml) 10 ml IV BID JOEL Last Admin: 02/04/19 10:00 Dose: 10 ml Documented by: Sodium Chloride (Sodium Chloride Flush Syringe 10 Ml) 10 ml IV PRN PRN PRN Reason: LINE FLUSH medications reviewed/updated as required Review of Systems - Review of Systems ROS unobtainable: due to mental status Exam - Constitutional Vital Signs: Temp Pulse Resp BP Pulse Ox 98.6 F 102 H 39 H 123/81 97 02/04/19 12:00 02/04/19 12:03 02/04/19 12:03 02/04/19 11:50 02/04/19 12:03 General appearance: mild distress, other (lethargic, on BiPAP) - Respiratory Respiratory: bilateral: rhonchi - Cardiovascular Rhythm: other (tachycardia) - Gastrointestinal General gastrointestinal: Present: soft, non-distended, normal bowel sounds - Labs CBC & Chem 7: 02/04/19 04:35 02/04/19 10:59 Lab Results: Laboratory Results - last 24 hr 02/03/19 02/03/19 02/03/19 02:57 17:48 18:06 WBC 6.3 RBC 0.88 L Hgb 1.9 L* Hct 7.1 L* MCV 81 MCH 22 L MCHC 27 L RDW 23.3 H Plt Count 489 H Lymph % (Auto) 17.6 [place] % (Auto) 10.1 H Eos % (Auto) 0.1 Baso % (Auto) 1.0 Lymph # 1.1 L [place] # 0.6 Eos # 0.0 Baso # 0.1 Add Manual Diff Total Counted Seg Neutrophils % 71.2 H Seg Neuts % (Manual) Band Neutrophils % Lymphocytes % (Manual) Reactive Lymphs % (Man) Monocytes % (Manual) Eosinophils % (Manual) Basophils % (Manual) Metamyelocytes % Myelocytes % Promyelocytes % Blast Cells % Nucleated RBC % Seg Neutrophils # 4.5 Seg Neutrophils # Man Band Neutrophils # Lymphocytes # (Manual) Abs React Lymphs (Man) Monocytes # (Manual) Eosinophils # (Manual) Basophils # (Manual) Metamyelocytes # Myelocytes # Promyelocytes # Blast Cells # WBC Morphology Hypersegmented Neuts Hyposegmented Neuts Hypogranular Neuts Smudge Cells Toxic Granulation Toxic Vacuolation Dohle Bodies Pelger-Huet Anomaly [place] Rods Platelet Estimate Clumped Platelets Plt Clumps, EDTA Large Platelets Giant Platelets Platelet Satelliting Plt Morphology Comment RBC Morphology Dimorphic RBCs Polychromasia Hypochromasia Poikilocytosis Anisocytosis Microcytosis Macrocytosis Spherocytes Pappenheimer Bodies Sickle Cells Target Cells Tear Drop Cells Ovalocytes Helmet Cells [place] Bodies [place] Rings [place] Cells Bite Cells Crenated Cell Elliptocytes Acanthocytes (Spur) Rouleaux Hemoglobin C Crystals Schistocytes Malaria parasites Kend[place] Bodies Hem Pathologist Commnt PT INR APTT POC ABG pH POC ABG pO2 POC ABG HCO3 POC ABG Total CO2 POC ABG O2 Sat POC ABG Base Excess FiO2 Sodium Potassium Chloride Carbon Dioxide Anion Gap BUN Creatinine Estimated GFR BUN/Creatinine Ratio Glucose POC Glucose 98 Lactic Acid Calcium Total Bilirubin AST ALT Alkaline Phosphatase Troponin T NT-Pro-B Natriuret Pep Total Protein Albumin Albumin/Globulin Ratio Triglycerides Cholesterol LDL Cholesterol Direct HDL Cholesterol Cholesterol/HDL Ratio Urine Color Yellow Urine Turbidity Clear Urine pH 6.0 Ur Specific [place] 1.011 Urine Protein <15 mg/dl Urine Glucose (UA) Neg Urine Ketones Neg Urine Blood Neg Urine Nitrite Neg Urine Bilirubin Neg Urine Urobilinogen < 2.0 Ur Leukocyte Esterase Neg Urine WBC (Auto) 7.0 H Urine RBC (Auto) 8.0 U Epithel Cells (Auto) 1.0 Urine Bacteria (Auto) 2+ Hyaline Casts 22 Urine Mucus 3+ Blood Type Antibody Screen Crossmatch 02/03/19 02/03/19 02/03/19 18:06 18:06 18:08 WBC RBC Hgb Hct MCV MCH MCHC RDW Plt Count Lymph % (Auto) [place] % (Auto) Eos % (Auto) Baso % (Auto) Lymph # [place] # Eos # Baso # Add Manual Diff Total Counted Seg Neutrophils % Seg Neuts % (Manual) Band Neutrophils % Lymphocytes % (Manual) Reactive Lymphs % (Man) Monocytes % (Manual) Eosinophils % (Manual) Basophils % (Manual) Metamyelocytes % Myelocytes % Promyelocytes % Blast Cells % Nucleated RBC % Seg Neutrophils # Seg Neutrophils # Man Band Neutrophils # Lymphocytes # (Manual) Abs React Lymphs (Man) Monocytes # (Manual) Eosinophils # (Manual) Basophils # (Manual) Metamyelocytes # Myelocytes # Promyelocytes # Blast Cells # WBC Morphology Hypersegmented Neuts Hyposegmented Neuts Hypogranular Neuts Smudge Cells Toxic Granulation Toxic Vacuolation Dohle Bodies Pelger-Huet Anomaly [place] Rods Platelet Estimate Clumped Platelets Plt Clumps, EDTA Large Platelets Giant Platelets Platelet Satelliting Plt Morphology Comment RBC Morphology Dimorphic RBCs Polychromasia Hypochromasia Poikilocytosis Anisocytosis Microcytosis Macrocytosis Spherocytes Pappenheimer Bodies Sickle Cells Target Cells Tear Drop Cells Ovalocytes Helmet Cells [place] Bodies [place] Rings [place] Cells Bite Cells Crenated Cell Elliptocytes Acanthocytes (Spur) Rouleaux Hemoglobin C Crystals Schistocytes Malaria parasites Kend[place] Bodies Hem Pathologist Commnt PT INR APTT POC ABG pH POC ABG pO2 POC ABG HCO3 POC ABG Total CO2 POC ABG O2 Sat POC ABG Base Excess FiO2 Sodium 145 Potassium 3.3 L Chloride 100.9 Carbon Dioxide 17 L Anion Gap 30 BUN 16 Creatinine 0.9 Estimated GFR 58 BUN/Creatinine Ratio 18 Glucose 94 POC Glucose Lactic Acid Calcium 7.9 L Total Bilirubin 0.30 AST 35 ALT 27 Alkaline Phosphatase 117 Troponin T 0.134 H* NT-Pro-B Natriuret Pep 9160 H Total Protein 5.1 L Albumin 2.8 L Albumin/Globulin Ratio 1.2 Triglycerides 164 H Cholesterol 125 LDL Cholesterol Direct 75 HDL Cholesterol 31 L Cholesterol/HDL Ratio 4.03 Urine Color Urine Turbidity Urine pH Ur Specific [place] Urine Protein Urine Glucose (UA) Urine Ketones Urine Blood Urine Nitrite Urine Bilirubin Urine Urobilinogen Ur Leukocyte Esterase Urine WBC (Auto) Urine RBC (Auto) U Epithel Cells (Auto) Urine Bacteria (Auto) Hyaline Casts Urine Mucus Blood Type A POSITIVE Antibody Screen Negative Crossmatch See Detail 02/03/19 02/03/19 02/03/19 18:08 19:24 19:24 WBC RBC Hgb Hct MCV MCH MCHC RDW Plt Count Lymph % (Auto) [place] % (Auto) Eos % (Auto) Baso % (Auto) Lymph # [place] # Eos # Baso # Add Manual Diff Total Counted Seg Neutrophils % Seg Neuts % (Manual) Band Neutrophils % Lymphocytes % (Manual) Reactive Lymphs % (Man) Monocytes % (Manual) Eosinophils % (Manual) Basophils % (Manual) Metamyelocytes % Myelocytes % Promyelocytes % Blast Cells % Nucleated RBC % Seg Neutrophils # Seg Neutrophils # Man Band Neutrophils # Lymphocytes # (Manual) Abs React Lymphs (Man) Monocytes # (Manual) Eosinophils # (Manual) Basophils # (Manual) Metamyelocytes # Myelocytes # Promyelocytes # Blast Cells # WBC Morphology Hypersegmented Neuts Hyposegmented Neuts Hypogranular Neuts Smudge Cells Toxic Granulation Toxic Vacuolation Dohle Bodies Pelger-Huet Anomaly [place] Rods Platelet Estimate Clumped Platelets Plt Clumps, EDTA Large Platelets Giant Platelets Platelet Satelliting Plt Morphology Comment RBC Morphology Dimorphic RBCs Polychromasia Hypochromasia Poikilocytosis Anisocytosis Microcytosis Macrocytosis Spherocytes Pappenheimer Bodies Sickle Cells Target Cells Tear Drop Cells Ovalocytes Helmet Cells [place] Bodies [place] Rings [place] Cells Bite Cells Crenated Cell Elliptocytes Acanthocytes (Spur) Rouleaux Hemoglobin C Crystals Schistocytes Malaria parasites Kend[place] Bodies Hem Pathologist Commnt PT 19.3 H INR 1.52 H APTT 30.3 POC ABG pH POC ABG pO2 POC ABG HCO3 POC ABG Total CO2 POC ABG O2 Sat POC ABG Base Excess FiO2 Sodium Potassium Chloride Carbon Dioxide Anion Gap BUN Creatinine Estimated GFR BUN/Creatinine Ratio Glucose POC Glucose Lactic Acid 9.90 H* Calcium Total Bilirubin AST ALT Alkaline Phosphatase Troponin T 0.139 H* NT-Pro-B Natriuret Pep Total Protein Albumin Albumin/Globulin Ratio Triglycerides Cholesterol LDL Cholesterol Direct HDL Cholesterol Cholesterol/HDL Ratio Urine Color Urine Turbidity Urine pH Ur Specific [place] Urine Protein Urine Glucose (UA) Urine Ketones Urine Blood Urine Nitrite Urine Bilirubin Urine Urobilinogen Ur Leukocyte Esterase Urine WBC (Auto) Urine RBC (Auto) U Epithel Cells (Auto) Urine Bacteria (Auto) Hyaline Casts Urine Mucus Blood Type Antibody Screen Crossmatch 02/03/19 02/03/19 02/03/19 19:24 20:30 23:36 WBC RBC Hgb Hct MCV MCH MCHC RDW Plt Count Lymph % (Auto) [place] % (Auto) Eos % (Auto) Baso % (Auto) Lymph # [place] # Eos # Baso # Add Manual Diff Total Counted Seg Neutrophils % Seg Neuts % (Manual) Band Neutrophils % Lymphocytes % (Manual) Reactive Lymphs % (Man) Monocytes % (Manual) Eosinophils % (Manual) Basophils % (Manual) Metamyelocytes % Myelocytes % Promyelocytes % Blast Cells % Nucleated RBC % Seg Neutrophils # Seg Neutrophils # Man Band Neutrophils # Lymphocytes # (Manual) Abs React Lymphs (Man) Monocytes # (Manual) Eosinophils # (Manual) Basophils # (Manual) Metamyelocytes # Myelocytes # Promyelocytes # Blast Cells # WBC Morphology Hypersegmented Neuts Hyposegmented Neuts Hypogranular Neuts Smudge Cells Toxic Granulation Toxic Vacuolation Dohle Bodies Pelger-Huet Anomaly [place] Rods Platelet Estimate Clumped Platelets Plt Clumps, EDTA Large Platelets Giant Platelets Platelet Satelliting Plt Morphology Comment RBC Morphology Dimorphic RBCs Polychromasia Hypochromasia Poikilocytosis Anisocytosis Microcytosis Macrocytosis Spherocytes Pappenheimer Bodies Sickle Cells Target Cells Tear Drop Cells Ovalocytes Helmet Cells [place] Bodies [place] Rings [place] Cells Bite Cells Crenated Cell Elliptocytes Acanthocytes (Spur) Rouleaux Hemoglobin C Crystals Schistocytes Malaria parasites [place] Bodies Hem Pathologist Commnt PT INR APTT POC ABG pH 7.515 H POC ABG pO2 121 H POC ABG HCO3 16.5 POC ABG Total CO2 17 POC ABG O2 Sat 99 POC ABG Base Excess -6 FiO2 30 Sodium Potassium Chloride Carbon Dioxide Anion Gap BUN Creatinine Estimated GFR BUN/Creatinine Ratio Glucose POC Glucose Lactic Acid 6.30 H* 6.50 H* Calcium Total Bilirubin AST ALT Alkaline Phosphatase Troponin T NT-Pro-B Natriuret Pep Total Protein Albumin Albumin/Globulin Ratio Triglycerides Cholesterol LDL Cholesterol Direct HDL Cholesterol Cholesterol/HDL Ratio Urine Color Urine Turbidity Urine pH Ur Specific [place] Urine Protein Urine Glucose (UA) Urine Ketones Urine Blood Urine Nitrite Urine Bilirubin Urine Urobilinogen Ur Leukocyte Esterase Urine WBC (Auto) Urine RBC (Auto) U Epithel Cells (Auto) Urine Bacteria (Auto) Hyaline Casts Urine Mucus Blood Type Antibody Screen Crossmatch 02/04/19 02/04/19 02/04/19 00:27 01:18 04:35 WBC 17.5 H RBC 4.51 Hgb 11.5 D 12.3 Hct 35.6 D 37.1 MCV 82 MCH 27 L MCHC 33 RDW 15.9 H Plt Count 384 Lymph % (Auto) [place] % (Auto) Eos % (Auto) Baso % (Auto) Lymph # [place] # Eos # Baso # Add Manual Diff Complete Total Counted 100 Seg Neutrophils % Blower Mechanic Seg Neuts % (Manual) 96.0 H Band Neutrophils % 3.0 Lymphocytes % (Manual) 1.0 L Reactive Lymphs % (Man) 0 Monocytes % (Manual) 0 Eosinophils % (Manual) 0 Basophils % (Manual) 0 Metamyelocytes % 0 Myelocytes % 0 Promyelocytes % 0 Blast Cells % 0 Nucleated RBC % Not Reportable Seg Neutrophils # Seg Neutrophils # Man 16.8 H Band Neutrophils # 0.5 Lymphocytes # (Manual) 0.2 L Abs React Lymphs (Man) 0.0 Monocytes # (Manual) 0.0 Eosinophils # (Manual) 0.0 Basophils # (Manual) 0.0 Metamyelocytes # 0.0 Myelocytes # 0.0 Promyelocytes # 0.0 Blast Cells # 0.0 WBC Morphology Not Reportable Hypersegmented Neuts Not Reportable Hyposegmented Neuts Not Reportable Hypogranular Neuts Not Reportable Smudge Cells Not Reportable Toxic Granulation Not Reportable Toxic Vacuolation Not Reportable Dohle Bodies Not Reportable Pelger-Huet Anomaly Not Reportable Ferm[place] Rods Not Reportable Platelet Estimate Consistent w auto Clumped Platelets Not Reportable Plt Clumps, EDTA Not Reportable Large Platelets Not Reportable Giant Platelets Not Reportable Platelet Satelliting Not Reportable Plt Morphology Comment Not Reportable RBC Morphology Not Reportable Dimorphic RBCs Not Reportable Polychromasia Not Reportable Hypochromasia Not Reportable Poikilocytosis Not Reportable Anisocytosis Not Reportable Microcytosis Not Reportable Macrocytosis Not Reportable Spherocytes Not Reportable Pappenheimer Bodies Not Reportable Sickle Cells Not Reportable Target Cells Not Reportable Tear Drop Cells Not Reportable Ovalocytes Not Reportable Helmet Cells Not Reportable [place] Bodies Not Reportable [place] Rings Not Reportable [place] Cells Not Reportable Bite Cells Not Reportable Crenated Cell Not Reportable Elliptocytes Not Reportable Acanthocytes (Spur) Not Reportable Rouleaux Not Reportable Hemoglobin C Crystals Not Reportable Schistocytes Not Reportable Malaria parasites Not Reportable [place] Bodies Not Reportable Hem Pathologist Commnt No PT INR APTT POC ABG pH POC ABG pO2 POC ABG HCO3 POC ABG Total CO2 POC ABG O2 Sat POC ABG Base Excess FiO2 Sodium Potassium Chloride Carbon Dioxide Anion Gap BUN Creatinine Estimated GFR BUN/Creatinine Ratio Glucose POC Glucose Lactic Acid 5.70 H* Calcium Total Bilirubin AST ALT Alkaline Phosphatase Troponin T NT-Pro-B Natriuret Pep Total Protein Albumin Albumin/Globulin Ratio Triglycerides Cholesterol LDL Cholesterol Direct HDL Cholesterol Cholesterol/HDL Ratio Urine Color Urine Turbidity Urine pH Ur Specific [place] Urine Protein Urine Glucose (UA) Urine Ketones Urine Blood Urine Nitrite Urine Bilirubin Urine Urobilinogen Ur Leukocyte Esterase Urine WBC (Auto) Urine RBC (Auto) U Epithel Cells (Auto) Urine Bacteria (Auto) Hyaline Casts Urine Mucus Blood Type Antibody Screen Crossmatch 02/04/19 02/04/19 02/04/19 04:35 04:35 04:35 WBC RBC Hgb Hct MCV MCH MCHC RDW Plt Count Lymph % (Auto) [place] % (Auto) Eos % (Auto) Baso % (Auto) Lymph # [place] # Eos # Baso # Add Manual Diff Total Counted Seg Neutrophils % Seg Neuts % (Manual) Band Neutrophils % Lymphocytes % (Manual) Reactive Lymphs % (Man) Monocytes % (Manual) Eosinophils % (Manual) Basophils % (Manual) Metamyelocytes % Myelocytes % Promyelocytes % Blast Cells % Nucleated RBC % Seg Neutrophils # Seg Neutrophils # Man Band Neutrophils # Lymphocytes # (Manual) Abs React Lymphs (Man) Monocytes # (Manual) Eosinophils # (Manual) Basophils # (Manual) Metamyelocytes # Myelocytes # Promyelocytes # Blast Cells # WBC Morphology TNR Hypersegmented Neuts Hyposegmented Neuts Hypogranular Neuts Smudge Cells Toxic Granulation Toxic Vacuolation Dohle Bodies Pelger-Huet Anomaly [place] Rods Platelet Estimate Clumped Platelets Plt Clumps, EDTA Large Platelets Giant Platelets Platelet Satelliting Plt Morphology Comment RBC Morphology Dimorphic RBCs Polychromasia Hypochromasia Poikilocytosis Anisocytosis Microcytosis Macrocytosis Spherocytes Pappenheimer Bodies Sickle Cells Target Cells Tear Drop Cells Ovalocytes Helmet Cells [place] Bodies [place] Rings [place] Cells Bite Cells Crenated Cell Elliptocytes Acanthocytes (Spur) Rouleaux Hemoglobin C Crystals Schistocytes Malaria parasites Kend[place] Bodies Hem Pathologist Commnt PT INR APTT POC ABG pH POC ABG pO2 POC ABG HCO3 POC ABG Total CO2 POC ABG O2 Sat POC ABG Base Excess FiO2 Sodium 147 H Potassium 3.2 L Chloride 106.1 Carbon Dioxide 21 L Anion Gap 23 BUN 17 Creatinine 1.0 Estimated GFR 51 BUN/Creatinine Ratio 17 Glucose 170 H POC Glucose Lactic Acid 3.60 H* Calcium 7.9 L Total Bilirubin AST ALT Alkaline Phosphatase Troponin T NT-Pro-B Natriuret Pep Total Protein Albumin Albumin/Globulin Ratio Triglycerides Cholesterol LDL Cholesterol Direct HDL Cholesterol Cholesterol/HDL Ratio Urine Color Urine Turbidity Urine pH Ur Specific [place] Urine Protein Urine Glucose (UA) Urine Ketones Urine Blood Urine Nitrite Urine Bilirubin Urine Urobilinogen Ur Leukocyte Esterase Urine WBC (Auto) Urine RBC (Auto) U Epithel Cells (Auto) Urine Bacteria (Auto) Hyaline Casts Urine Mucus Blood Type Antibody Screen Crossmatch 02/04/19 10:59 WBC RBC Hgb Hct MCV MCH MCHC RDW Plt Count Lymph % (Auto) [place] % (Auto) Eos % (Auto) Baso % (Auto) Lymph # [place] # Eos # Baso # Add Manual Diff Total Counted Seg Neutrophils % Seg Neuts % (Manual) Band Neutrophils % Lymphocytes % (Manual) Reactive Lymphs % (Man) Monocytes % (Manual) Eosinophils % (Manual) Basophils % (Manual) Metamyelocytes % Myelocytes % Promyelocytes % Blast Cells % Nucleated RBC % Seg Neutrophils # Seg Neutrophils # Man Band Neutrophils # Lymphocytes # (Manual) Abs React Lymphs (Man) Monocytes # (Manual) Eosinophils # (Manual) Basophils # (Manual) Metamyelocytes # Myelocytes # Promyelocytes # Blast Cells # WBC Morphology Hypersegmented Neuts Hyposegmented Neuts Hypogranular Neuts Smudge Cells Toxic Granulation Toxic Vacuolation Dohle Bodies Pelger-Huet Anomaly [place] Rods Platelet Estimate Clumped Platelets Plt Clumps, EDTA Large Platelets Giant Platelets Platelet Satelliting Plt Morphology Comment RBC Morphology Dimorphic RBCs Polychromasia Hypochromasia Poikilocytosis Anisocytosis Microcytosis Macrocytosis Spherocytes Pappenheimer Bodies Sickle Cells Target Cells Tear Drop Cells Ovalocytes Helmet Cells [place] Bodies [place] Rings [place] Cells Bite Cells Crenated Cell Elliptocytes Acanthocytes (Spur) Rouleaux Hemoglobin C Crystals Schistocytes Malaria parasites Kend[place] Bodies Hem Pathologist Commnt PT INR APTT POC ABG pH POC ABG pO2 POC ABG HCO3 POC ABG Total CO2 POC ABG O2 Sat POC ABG Base Excess FiO2 Sodium Potassium 3.1 L Chloride Carbon Dioxide Anion Gap BUN Creatinine Estimated GFR BUN/Creatinine Ratio Glucose POC Glucose Lactic Acid Calcium Total Bilirubin AST ALT Alkaline Phosphatase Troponin T NT-Pro-B Natriuret Pep Total Protein Albumin Albumin/Globulin Ratio Triglycerides Cholesterol LDL Cholesterol Direct HDL Cholesterol Cholesterol/HDL Ratio Urine Color Urine Turbidity Urine pH Ur Specific [place] Urine Protein Urine Glucose (UA) Urine Ketones Urine Blood Urine Nitrite Urine Bilirubin Urine Urobilinogen Ur Leukocyte Esterase Urine WBC (Auto) Urine RBC (Auto) U Epithel Cells (Auto) Urine Bacteria (Auto) Hyaline Casts Urine Mucus Blood Type Antibody Screen Crossmatch Assessment and Plan 1.GI bleed 2.anemia -H/H 12.3/37.1 s/p 5 units PRBCs (1.9/7.1 on admission) -continue to monitor H/H and transfuse as needed -hold blood thinning medications -black, heme + stool found upon exam by ER provider -no active signs of bleeding overnight or this am per nursing- currently HD stable -etiology-possible ulcer given history of heavy NSAID use vs other -recommend EGD once patient's respiratory status has improved (in ICU at this time on BiPAP) -continue PPI and supportive care -will follow
--- NOTE | 2019-02-04 14:34 | Progress Note ---
Assessment and Plan Patient is a 70-year-old female (unsure of actual age) brought by with acute respiratory distress in poor condition, she is being treated for GI bleed, respiratory failure. 1. Acute encephalopathy 2. Acute hypoxic respiratory failure with Severe respiratory alkalosis 3. Acute GI bleed, possible PUD 4. Acute blood loss anemia (due to #2) 5. Hypokalemia, replete 6. CHF with acute exacerbation (last echo and EF unknown) 7. SIRS, source of infection unclear 8. Severe protein calorie malnutrition Plan: Patient admitted to ICU Started patient on BiPAP, monitor with serial XRY and abg Consulted GI for acute GI bleed s/p 5 units of packed RBCs monitor h/h, place on iv lasix Avoid NSAIDs Keep NPO, iv abx, blakely cx, BMP in the a.m. replete electrolytes, 2d echo consult dietary No DVT prophylaxis (GI bleed) The high probability of a clinically significant, sudden or life threatening deterioration of the [multiple] system(s) required my full and direct attention, intervention and personal management. The aggregate critical care time was [35] minutes. This time is in addition to time spent performing reported procedures but includes the following: [x] Data Review and interpretation [x] Patient assessment and monitoring of vital signs [x] Documentation [x] Medication orders and management Subjective Date of service: 02/04/19 Interval history: Patient seen and examined on biPAP, unable to follow commend, appears lethargic, restraint Objective - Exam Narrative Exam: General appearance: Present: severe distress - EENT ENT: hearing intact - Neck Neck: Present: normal ROM - Respiratory Respiratory effort: normal Respiratory: bilateral: rhonchi - Cardiovascular Rhythm: regular Heart Sounds: Present: S1 & S2 - Extremities Extremities: no ischemia Peripheral Pulses: within normal limits - Abdominal General gastrointestinal: Present: non-tender, non-distended - Rectal Rectal Exam: deferred - Integumentary Integumentary: Present: warm, dry - Musculoskeletal Musculoskeletal: generalized weakness - Psychiatric Psychiatric: agitated - Neurologic Neurologic: moves all extremities - Constitutional Vitals: Vital Signs - 12hr 02/04/19 02/04/19 02/04/19 02:36 02:41 02:51 Temperature Pulse Rate 106 H 107 H Pulse Rate [ Bilateral] Pulse Rate [ 101 H From Monitor] Respiratory 38 H 44 H 40 H Rate Respiratory Rate [Bilateral ] Blood Pressure 135/82 133/63 O2 Sat by Pulse 90 90 87 Oximetry 02/04/19 02/04/19 02/04/19 03:00 03:11 03:21 Temperature Pulse Rate 103 H 106 H 105 H Pulse Rate [ Bilateral] Pulse Rate [ From Monitor] Respiratory 35 H 38 H 38 H Rate Respiratory Rate [Bilateral ] Blood Pressure 127/84 127/84 128/75 O2 Sat by Pulse 90 85 88 Oximetry 02/04/19 02/04/19 02/04/19 03:30 03:41 03:51 Temperature Pulse Rate 106 H 104 H 104 H Pulse Rate [ Bilateral] Pulse Rate [ From Monitor] Respiratory 38 H 41 H 39 H Rate Respiratory Rate [Bilateral ] Blood Pressure 132/82 132/82 118/76 O2 Sat by Pulse 87 90 91 Oximetry 02/04/19 02/04/19 02/04/19 04:00 04:11 04:19 Temperature 97.8 F Pulse Rate 102 H 105 H 101 H Pulse Rate [ Bilateral] Pulse Rate [ 101 H From Monitor] Respiratory 37 H 34 H 28 H Rate Respiratory Rate [Bilateral ] Blood Pressure 115/76 115/76 119/75 O2 Sat by Pulse 87 81 L 91 Oximetry 02/04/19 02/04/19 02/04/19 04:21 04:30 04:41 Temperature Pulse Rate 105 H 105 H 104 H Pulse Rate [ Bilateral] Pulse Rate [ From Monitor] Respiratory 40 H 37 H 33 H Rate Respiratory Rate [Bilateral ] Blood Pressure 119/75 125/80 125/80 O2 Sat by Pulse 89 89 86 Oximetry 02/04/19 02/04/19 02/04/19 04:51 05:00 05:11 Temperature Pulse Rate 105 H 102 H 103 H Pulse Rate [ Bilateral] Pulse Rate [ From Monitor] Respiratory 42 H 38 H 38 H Rate Respiratory Rate [Bilateral ] Blood Pressure 126/76 125/76 125/76 O2 Sat by Pulse 86 86 82 L Oximetry 02/04/19 02/04/19 02/04/19 05:21 05:30 05:41 Temperature Pulse Rate 104 H 104 H 104 H Pulse Rate [ Bilateral] Pulse Rate [ From Monitor] Respiratory 38 H 37 H 38 H Rate Respiratory Rate [Bilateral ] Blood Pressure 118/70 124/80 124/80 O2 Sat by Pulse 83 L 86 87 Oximetry 02/04/19 02/04/1919 05:51 06:00 06:11 Temperature Pulse Rate 103 H 102 H 101 H Pulse Rate [ Bilateral] Pulse Rate [ 103 H From Monitor] Respiratory 38 H 36 H 38 H Rate Respiratory Rate [Bilateral ] Blood Pressure 125/86 118/78 118/78 O2 Sat by Pulse 86 86 87 Oximetry 02/04/19 02/04/19 02/04/19 06:21 06:30 06:41 Temperature Pulse Rate 101 H 101 H 101 H Pulse Rate [ Bilateral] Pulse Rate [ From Monitor] Respiratory 38 H 37 H 42 H Rate Respiratory Rate [Bilateral ] Blood Pressure 115/81 114/70 114/70 O2 Sat by Pulse 88 87 89 Oximetry 02/04/19 02/04/19 02/04/19 06:51 07:00 07:11 Temperature Pulse Rate 101 H 102 H 100 H Pulse Rate [ Bilateral] Pulse Rate [ From Monitor] Respiratory 40 H 42 H 39 H Rate Respiratory Rate [Bilateral ] Blood Pressure 118/73 132/70 132/70 O2 Sat by Pulse 87 89 88 Oximetry 02/04/19 02/04/19 02/04/19 07:21 07:30 07:41 Temperature Pulse Rate 102 H 103 H 101 H Pulse Rate [ Bilateral] Pulse Rate [ From Monitor] Respiratory 41 H 46 H 42 H Rate Respiratory Rate [Bilateral ] Blood Pressure 133/70 123/71 123/71 O2 Sat by Pulse 89 90 88 Oximetry 02/04/19 02/04/19 02/04/19 07:51 08:00 08:11 Temperature 97.7 F Pulse Rate 105 H 106 H 102 H Pulse Rate [ 103 H Bilateral] Pulse Rate [ 102 H From Monitor] Respiratory 34 H 42 H 37 H Rate Respiratory 40 H Rate [Bilateral ] Blood Pressure 112/63 120/82 112/63 O2 Sat by Pulse 95 92 94 Oximetry 02/04/19 02/04/19 02/04/19 08:21 08:30 08:40 Temperature Pulse Rate 102 H 103 H 103 H Pulse Rate [ 102 H Bilateral] Pulse Rate [ From Monitor] Respiratory 43 H 40 H 38 H Rate Respiratory 39 H Rate [Bilateral ] Blood Pressure 121/73 113/76 113/76 O2 Sat by Pulse 93 94 78 L Oximetry 02/04/19 02/04/19 02/04/19 08:51 09:00 09:11 Temperature Pulse Rate 104 H 103 H 101 H Pulse Rate [ Bilateral] Pulse Rate [ From Monitor] Respiratory 41 H 41 H 34 H Rate Respiratory Rate [Bilateral ] Blood Pressure 118/73 131/80 113/76 O2 Sat by Pulse 93 93 90 Oximetry 02/04/19 02/04/19 02/04/19 09:21 09:30 09:41 Temperature Pulse Rate 102 H 99 H 97 H Pulse Rate [ Bilateral] Pulse Rate [ From Monitor] Respiratory 35 H 33 H 29 H Rate Respiratory Rate [Bilateral ] Blood Pressure 126/72 122/73 131/80 O2 Sat by Pulse 94 94 95 Oximetry 02/04/19 02/04/19 02/04/19 09:51 10:00 10:11 Temperature Pulse Rate 102 H 103 H 97 H Pulse Rate [ Bilateral] Pulse Rate [ 108 H From Monitor] Respiratory 39 H 37 H 34 H Rate Respiratory Rate [Bilateral ] Blood Pressure 127/74 123/71 127/74 O2 Sat by Pulse 91 94 95 Oximetry 02/04/19 02/04/19 02/04/19 10:21 10:30 10:41 Temperature Pulse Rate 103 H 102 H 104 H Pulse Rate [ Bilateral] Pulse Rate [ From Monitor] Respiratory 39 H 37 H 37 H Rate Respiratory Rate [Bilateral ] Blood Pressure 120/67 139/73 139/73 O2 Sat by Pulse 97 87 88 Oximetry 02/04/19 02/04/19 02/04/19 10:51 11:00 11:11 Temperature Pulse Rate 104 H 101 H 98 H Pulse Rate [ Bilateral] Pulse Rate [ From Monitor] Respiratory 39 H 34 H 36 H Rate Respiratory Rate [Bilateral ] Blood Pressure 142/73 125/78 125/78 O2 Sat by Pulse 90 92 93 Oximetry 02/04/19 02/04/19 02/04/19 11:21 11:30 11:41 Temperature Pulse Rate 98 H 105 H 103 H Pulse Rate [ Bilateral] Pulse Rate [ From Monitor] Respiratory 35 H 36 H 36 H Rate Respiratory Rate [Bilateral ] Blood Pressure 123/74 125/78 125/78 O2 Sat by Pulse 95 88 95 Oximetry 02/04/19 02/04/19 02/04/19 11:50 12:00 12:03 Temperature 98.6 F Pulse Rate 103 H 102 H Pulse Rate [ Bilateral] Pulse Rate [ 106 H From Monitor] Respiratory 38 H 37 H 39 H Rate Respiratory Rate [Bilateral ] Blood Pressure 123/81 O2 Sat by Pulse 95 93 97 Oximetry 02/04/19 02/04/19 02/04/19 12:11 12:21 12:30 Temperature Pulse Rate 106 H 104 H 104 H Pulse Rate [ Bilateral] Pulse Rate [ From Monitor] Respiratory 38 H 37 H 38 H Rate Respiratory Rate [Bilateral ] Blood Pressure 128/78 123/81 O2 Sat by Pulse 92 95 94 Oximetry 02/04/19 02/04/19 02/04/19 12:41 12:51 13:00 Temperature Pulse Rate 105 H 102 H 102 H Pulse Rate [ Bilateral] Pulse Rate [ From Monitor] Respiratory 43 H 38 H 37 H Rate Respiratory Rate [Bilateral ] Blood Pressure 123/81 123/81 128/76 O2 Sat by Pulse 94 93 94 Oximetry 02/04/19 02/04/19 02/04/19 13:10 13:21 13:30 Temperature Pulse Rate 102 H 102 H 101 H Pulse Rate [ Bilateral] Pulse Rate [ From Monitor] Respiratory 37 H 38 H 39 H Rate Respiratory Rate [Bilateral ] Blood Pressure 128/76 128/76 118/73 O2 Sat by Pulse 92 89 88 Oximetry 02/04/19 02/04/19 02/04/19 13:41 13:51 14:00 Temperature Pulse Rate 100 H 100 H 102 H Pulse Rate [ Bilateral] Pulse Rate [ From Monitor] Respiratory 39 H 40 H 37 H Rate Respiratory Rate [Bilateral ] Blood Pressure 118/73 122/76 119/68 O2 Sat by Pulse 90 90 89 Oximetry 02/04/19 14:11 Temperature Pulse Rate 99 H Pulse Rate [ Bilateral] Pulse Rate [ From Monitor] Respiratory 39 H Rate Respiratory Rate [Bilateral ] Blood Pressure 119/68 O2 Sat by Pulse 91 Oximetry - Labs CBC & Chem 7: 02/04/19 04:35 02/04/19 10:59 Labs: Abnormal lab results 02/03/19 02/03/19 02/03/19 Range/Units 02:57 18:06 18:06 WBC (4.5-11.0) K/mm3 RBC 0.88 L (3.65-5.03) M/mm3 Hgb 1.9 L* (10.1-14.3) gm/dl Hct 7.1 L* (30.3-42.9) % MCH 22 L (28-32) pg MCHC 27 L (30-34) % RDW 23.3 H (13.2-15.2) % Plt Count 489 H (140-440) K/mm3 Carver % (Auto) 10.1 H (0.0-7.3) % Lymph # 1.1 L (1.2-5.4) K/mm3 Seg Neutrophils % 71.2 H (40.0-70.0) % Seg Neuts % (Manual) (40.0-70.0) % Lymphocytes % (Manual) (13.4-35.0) % Seg Neutrophils # Man (1.8-7.7) K/mm3 Lymphocytes # (Manual) (1.2-5.4) K/mm3 PT (12.2-14.9) Sec. INR (0.87-1.13) POC ABG pH (7.35-7.45) POC ABG pO2 (80-105) Sodium (137-145) mmol/L Potassium (3.6-5.0) mmol/L Carbon Dioxide (22-30) mmol/L Glucose (65-100) mg/dL Lactic Acid (0.7-2.0) mmol/L Calcium (8.4-10.2) mg/dL Troponin T (0.00-0.029) ng/mL NT-Pro-B Natriuret Pep 9160 H (0-900) pg/mL Total Protein (6.3-8.2) g/dL Albumin (3.9-5) g/dL Triglycerides (2-149) mg/dL HDL Cholesterol (40-59) mg/dL Urine WBC (Auto) 7.0 H (0.0-6.0) /HPF Crossmatch 02/03/19 02/03/19 02/03/19 Range/Units 18:06 18:08 18:08 WBC (4.5-11.0) K/mm3 RBC (3.65-5.03) M/mm3 Hgb (10.1-14.3) gm/dl Hct (30.3-42.9) % MCH (28-32) pg MCHC (30-34) % RDW (13.2-15.2) % Plt Count (140-440) K/mm3 Carver % (Auto) (0.0-7.3) % Lymph # (1.2-5.4) K/mm3 Seg Neutrophils % (40.0-70.0) % Seg Neuts % (Manual) (40.0-70.0) % Lymphocytes % (Manual) (13.4-35.0) % Seg Neutrophils # Man (1.8-7.7) K/mm3 Lymphocytes # (Manual) (1.2-5.4) K/mm3 PT (12.2-14.9) Sec. INR (0.87-1.13) POC ABG pH (7.35-7.45) POC ABG pO2 (80-105) Sodium (137-145) mmol/L Potassium 3.3 L (3.6-5.0) mmol/L Carbon Dioxide 17 L (22-30) mmol/L Glucose (65-100) mg/dL Lactic Acid 9.90 H* (0.7-2.0) mmol/L Calcium 7.9 L (8.4-10.2) mg/dL Troponin T 0.134 H* (0.00-0.029) ng/mL NT-Pro-B Natriuret Pep (0-900) pg/mL Total Protein 5.1 L (6.3-8.2) g/dL Albumin 2.8 L (3.9-5) g/dL Triglycerides 164 H (2-149) mg/dL HDL Cholesterol 31 L (40-59) mg/dL Urine WBC (Auto) (0.0-6.0) /HPF Crossmatch See Detail 02/03/19 02/03/19 02/03/19 Range/Units 19:24 19:24 19:24 WBC (4.5-11.0) K/mm3 RBC (3.65-5.03) M/mm3 Hgb (10.1-14.3) gm/dl Hct (30.3-42.9) % MCH (28-32) pg MCHC (30-34) % RDW (13.2-15.2) % Plt Count (140-440) K/mm3 Carver % (Auto) (0.0-7.3) % Lymph # (1.2-5.4) K/mm3 Seg Neutrophils % (40.0-70.0) % Seg Neuts % (Manual) (40.0-70.0) % Lymphocytes % (Manual) (13.4-35.0) % Seg Neutrophils # Man (1.8-7.7) K/mm3 Lymphocytes # (Manual) (1.2-5.4) K/mm3 PT 19.3 H (12.2-14.9) Sec. INR 1.52 H (0.87-1.13) POC ABG pH (7.35-7.45) POC ABG pO2 (80-105) Sodium (137-145) mmol/L Potassium (3.6-5.0) mmol/L Carbon Dioxide (22-30) mmol/L Glucose (65-100) mg/dL Lactic Acid 6.30 H* (0.7-2.0) mmol/L Calcium (8.4-10.2) mg/dL Troponin T 0.139 H* (0.00-0.029) ng/mL NT-Pro-B Natriuret Pep (0-900) pg/mL Total Protein (6.3-8.2) g/dL Albumin (3.9-5) g/dL Triglycerides (2-149) mg/dL HDL Cholesterol (40-59) mg/dL Urine WBC (Auto) (0.0-6.0) /HPF Crossmatch 02/03/19 02/03/19 02/04/19 Range/Units 20:30 23:36 01:18 WBC (4.5-11.0) K/mm3 RBC (3.65-5.03) M/mm3 Hgb (10.1-14.3) gm/dl Hct (30.3-42.9) % MCH (28-32) pg MCHC (30-34) % RDW (13.2-15.2) % Plt Count (140-440) K/mm3 Carver % (Auto) (0.0-7.3) % Lymph # (1.2-5.4) K/mm3 Seg Neutrophils % (40.0-70.0) % Seg Neuts % (Manual) (40.0-70.0) % Lymphocytes % (Manual) (13.4-35.0) % Seg Neutrophils # Man (1.8-7.7) K/mm3 Lymphocytes # (Manual) (1.2-5.4) K/mm3 PT (12.2-14.9) Sec. INR (0.87-1.13) POC ABG pH 7.515 H (7.35-7.45) POC ABG pO2 121 H (80-105) Sodium (137-145) mmol/L Potassium (3.6-5.0) mmol/L Carbon Dioxide (22-30) mmol/L Glucose (65-100) mg/dL Lactic Acid 6.50 H* 5.70 H* (0.7-2.0) mmol/L Calcium (8.4-10.2) mg/dL Troponin T (0.00-0.029) ng/mL NT-Pro-B Natriuret Pep (0-900) pg/mL Total Protein (6.3-8.2) g/dL Albumin (3.9-5) g/dL Triglycerides (2-149) mg/dL HDL Cholesterol (40-59) mg/dL Urine WBC (Auto) (0.0-6.0) /HPF Crossmatch 02/04/19 02/04/19 02/04/19 Range/Units 04:35 04:35 04:35 WBC 17.5 H (4.5-11.0) K/mm3 RBC (3.65-5.03) M/mm3 Hgb (10.1-14.3) gm/dl Hct (30.3-42.9) % MCH 27 L (28-32) pg MCHC (30-34) % RDW 15.9 H (13.2-15.2) % Plt Count (140-440) K/mm3 Carver % (Auto) (0.0-7.3) % Lymph # (1.2-5.4) K/mm3 Seg Neutrophils % (40.0-70.0) % Seg Neuts % (Manual) 96.0 H (40.0-70.0) % Lymphocytes % (Manual) 1.0 L (13.4-35.0) % Seg Neutrophils # Man 16.8 H (1.8-7.7) K/mm3 Lymphocytes # (Manual) 0.2 L (1.2-5.4) K/mm3 PT (12.2-14.9) Sec. INR (0.87-1.13) POC ABG pH (7.35-7.45) POC ABG pO2 (80-105) Sodium 147 H (137-145) mmol/L Potassium 3.2 L (3.6-5.0) mmol/L Carbon Dioxide 21 L (22-30) mmol/L Glucose 170 H (65-100) mg/dL Lactic Acid 3.60 H* (0.7-2.0) mmol/L Calcium 7.9 L (8.4-10.2) mg/dL Troponin T (0.00-0.029) ng/mL NT-Pro-B Natriuret Pep (0-900) pg/mL Total Protein (6.3-8.2) g/dL Albumin (3.9-5) g/dL Triglycerides (2-149) mg/dL HDL Cholesterol (40-59) mg/dL Urine WBC (Auto) (0.0-6.0) /HPF Crossmatch 02/04/19 Range/Units 10:59 WBC (4.5-11.0) K/mm3 RBC (3.65-5.03) M/mm3 Hgb (10.1-14.3) gm/dl Hct (30.3-42.9) % MCH (28-32) pg MCHC (30-34) % RDW (13.2-15.2) % Plt Count (140-440) K/mm3 Carver % (Auto) (0.0-7.3) % Lymph # (1.2-5.4) K/mm3 Seg Neutrophils % (40.0-70.0) % Seg Neuts % (Manual) (40.0-70.0) % Lymphocytes % (Manual) (13.4-35.0) % Seg Neutrophils # Man (1.8-7.7) K/mm3 Lymphocytes # (Manual) (1.2-5.4) K/mm3 PT (12.2-14.9) Sec. INR (0.87-1.13) POC ABG pH (7.35-7.45) POC ABG pO2 (80-105) Sodium (137-145) mmol/L Potassium 3.1 L (3.6-5.0) mmol/L Carbon Dioxide (22-30) mmol/L Glucose (65-100) mg/dL Lactic Acid (0.7-2.0) mmol/L Calcium (8.4-10.2) mg/dL Troponin T (0.00-0.029) ng/mL NT-Pro-B Natriuret Pep (0-900) pg/mL Total Protein (6.3-8.2) g/dL Albumin (3.9-5) g/dL Triglycerides (2-149) mg/dL HDL Cholesterol (40-59) mg/dL Urine WBC (Auto) (0.0-6.0) /HPF Crossmatch
[2019-02-04] MEDS: SOLU-Medrol IV SCH ×2 (15:05→21:33)
[2019-02-04] MEDS: KCL 20MEQ/100ML 20 MEQ/100 ML BAG IV SCH ×2 (15:29→16:34)
[2019-02-04] MEDS: MORPHINE IV PRN (16:33)
[2019-02-04] MEDS: PROTONIX 80 MG in NACL 0.9% 100 ML IV SCH (17:37)
[2019-02-04] MEDS: PULMICORT IH SCH (20:02)
[2019-02-04] MEDS: BROVANA NEBU IH SCH (20:03)
[2019-02-04] MEDS: D5W/0.45% NACL/KCL 30 MEQ 30 MEQ/1,000 ML BAG IV SCH (21:33)
--- NOTE | 2019-02-05 00:39 | Consultation ---
PULMONARY CRITICAL CARE CONSULT NOTE CONSULTING PHYSICIAN: Slo Huitorn MD REASON FOR CONSULTATION: Acute hypoxemic respiratory failure. CHIEF COMPLAINT AND HISTORY OF PRESENT ILLNESS: As follows: The patient is a 68-year-old female with past medical history significant amongst other things for a diagnosis of congestive heart failure and COPD, brought into the Emergency Room after a fall at home. She had altered mental status and was in respiratory distress. She was lying on the floor covered in feces when EMS got there. He mentioned that she had been sick for a few days. She has had trouble breathing and had been taking a lot of Goody's analgesic powders. In the ER, she was lethargic, she was hypotensive. She was in significant respiratory distress. Initial hemoglobin was measured at 1.9. GI was consulted and we are asked to manage her. When I stopped in to see her, she was on the bilevel positive airway pressure ventilation mask. Breathing was a little labored. Her was in the room. She nodded her head yes when asked if she was in pain. Her nurse says that she was calm until when I came in when she just probably woke up. According to her , she probably has a 20+ pack year tobacco smoking history. He is unable to tell me if she has had any bouts of vomiting or overt aspiration. The above is as much of the history of presentation as I have. PAST MEDICAL HISTORY: Chronic obstructive lung disease, heart failure and hypertension. PAST SURGICAL HISTORY: Unknown. MEDICATIONS: She was on at the time I stopped by to see her were reviewed. Pertinent medications included the following: Albuterol nebulizer treatments, DuoNeb scheduled q. 6 hours, Zofran 4 mg IV q. 8 hours p.r.n. nausea and vomiting, Protonix drip was going at 8 mg per hour, Zosyn 3.375 grams IV q. 8 hours, D5 half NS with 30 of KCl at 75 mL per hour. ALLERGIES: No known drug allergies. DIET: Petite lady. denies acute weight loss or gain in the preceding few weeks to months. FAMILY AND SOCIAL HISTORY: Lives in the community. She is . She has a 20+ pack year tobacco smoking history. Alcohol, illicit drug use or abuse history is unknown. Family history otherwise unknown. REVIEW OF SYSTEMS: Unobtainable, mostly secondary to the patient's medical and mental condition. Since she has been here, no gross hematochezia or melena, no gross hematuria, no hematemesis, no hemoptysis, no palpitations. She nods her head yes to pain. She is unable to tell me the location. No new-onset focal weakness. Review of systems otherwise unobtainable or as in the body of the history above. PHYSICAL EXAMINATION: VITAL SIGNS: At presentation, she was afebrile, temperature was 98.2 degrees Fahrenheit, pulse was 92, respiratory rate was described as 24, blood pressure was 96/37, O2 sats were 97%. Inspired oxygen concentration at the time was not recorded. When I stopped by to see her, she was on the bilevel positive airway pressure ventilation machine, IPAP of 20, EPAP of 10, rate of 20 and 70% FiO2 with O2 sats of 98%. GENERAL: Elderly-looking female, normocephalic, atraumatic, on the BiPAP machine with moderately increased respiratory effort at the time of my exam at rest. HEAD, EYES, EARS, NOSE AND THROAT: She is anicteric. No conjunctival erythema. Oropharynx is dry. She has a BiPAP mask over her face. No gross jugular venous distention, no thyromegaly. Grossly, no palpable lymph nodes in the supraclavicular or submandibular lymph node chains. LUNGS: Auscultation of both lung rowe revealed bilateral rales, no wheezing, slightly prolonged expiratory phase. HEART: Heart sounds 1 and 2 are heard at the time of my evaluation, regular rate and rhythm without overt rubs or murmurs. ABDOMEN: Flat, soft, bowel sounds are positive, nontender, no palpable hepatosplenomegaly. EXTREMITIES: Without overt digital clubbing or cyanosis, no pedal edema. Pedal pulses are palpable and strong bilaterally. NEUROLOGIC: Pupils are equal, round, about 3 mm, sluggishly reactive to light. Extraocular muscle movements appeared intact. She moved all 4 extremities spontaneously. No fasciculations. No spasticity. PSYCHIATRIC: Psychiatric ortiz, she appeared anxious. Her affect was appropriately anxious. SKIN: Poor turgor; however, without overt cellulitis or rash. LABORATORY DATA: From my review is as follows: Initial white count was 6300. Initial hemoglobin was reported as 1.9. She received 5 units of blood and then it was reported as 11.5, so I do feel that it was low, but how low is the question. Hematocrit was 7.1 at presentation, platelet count 489. No band forms reported. INR was 1.52. Arterial blood gas showed a pH of 7.52, pCO2 was not recorded, pO2 was 121 that was on 30% FiO2. Serum sodium was 145, potassium 3.3, chloride 101, bicarbonate 17, BUN 16, creatinine 0.9 and glucose of 94. Lactic acid level was 6.3 at presentation, is down to 3.6. Calcium 7.9. Troponin was up at 0.134. BNP was up at 9160. Albumin was low at 2.8. Urinalysis was negative for nitrites and leukocyte esterase. She did have 2+ bacteria. Blood cultures no growth to date. Stool for occult blood was positive. Chest x-ray shows gross cardiomegaly with increased bilateral alveolar type markings without overt consolidation. No overt pleural effusions and slightly increased interstitial markings. There may be an element of mild interstitial edema at play. No gross pneumothorax, no gross bony fracture. ASSESSMENT: 1. Acute hypoxemic respiratory failure, on continuous noninvasive ventilation. 2. Symptomatic anemia with positive stool guaiac. 3. Acute chronic obstructive pulmonary disease exacerbation. 4. Possible acute gastrointestinal bleed. 5. Acute congestive heart failure exacerbation. 6. Hypotension at presentation. 7. Systemic inflammatory response syndrome. 8. Hypokalemia. 9. Elevated serum troponin. 10. Adult failure to thrive. PLAN: I will start her on some morphine and see how she responds to treatment of the pain despite her increased work of breathing at the time I saw her. Arterial blood gas was not that bothersome, the one that was done yesterday. I will repeat arterial blood gas now and make decisions regarding intubation from that standpoint. Her is unsure whether she would want to be intubated or not and she is really not in a position to answer that question for us right now. Oxygen will be weaned to keep sats greater than or equal to about 90%. With severe COPD, the noninvasive ventilation might actually be the better treatment modality. She has been seen by the GI team. We will continue to monitor the H and H. We will continue empiric Zosyn and follow cultures; however, I will also put her on some Zithromax for atypical coverage. We will continue gentle hydration. Protonix drip, we will continue. DVT prophylaxis will be in the form of SCDs. Sputum will be sent for Gram stain, cultures and sensitivities if she is able to give us. Flu and pneumonia vaccination will be addressed per protocol. Aspiration precautions will be maintained. We will see if she can get to the point where we can do a swallow evaluation and feed her and transition her to bedtime only BiPAP. Otherwise, a feeding tube will be placed. Again, flu and pneumonia vaccination will be addressed per protocol. Thank you very much for the consult Dr. Huitron. We will follow along and make further recommendations as picture progresses/becomes clearer. She is critically ill on life-sustaining interventions including continuous noninvasive ventilation at high risk of from cardiopulmonary system deterioration. I should mention Cardiology evaluation will be appropriate. For now, I will hold on diuresis in light of her labile blood pressures, but we will see if she will not benefit from gentle diuresis down the line. Conservative volume management strategies should be employed. At this time, I spent about 35-40 minutes of critical care time without overlap and excluding any procedural time that may be necessary. JOB# [id number] I[facility]/KELLY BANUELOS
[2019-02-05] MEDS: MORPHINE IV PRN ×2 (02:20→20:11)
[2019-02-05] MEDS: SODIUM CHLORIDE FLUSH SYRINGE 10 ML IV SCH ×2 (02:23→10:33)
[2019-02-05] MEDS: DUONEB *Not for PRN Use IH SCH ×5 (02:28→23:44)
[2019-02-05] MEDS: BROVANA NEBU IH SCH ×3 (02:29→19:38)
[2019-02-05] MEDS: PULMICORT IH SCH ×3 (02:29→19:38)
[2019-02-05 04:58] LABS: Hematocrit 34.5 % (30.3-42.9); Hemoglobin 11.7 gm/dl (10.1-14.3); Mean Corpuscular HGB Conc 34 % (30-34); Mean Corpuscular Volume 83 fl (79-97); Platelet Count 256 K/mm3 (140-440); Red Blood Count 4.17 M/mm3 (3.65-5.03); Red Cell Distribution Width 16.6 % (13.2-15.2)
[2019-02-05 05:09] LABS: BUN/Creatinine Ratio 24; Blood Urea Nitrogen 19 mg/dL (7-17); Calcium 7.4 mg/dL (8.4-10.2); Hemolysis Index 32
[2019-02-05] MEDS: ZOSYN/NS 3.375GM/50ML 3.375 GM/50 ML BAG IV SCH ×3 (05:22→22:41)
[2019-02-05] MEDS: PROTONIX 80 MG in NACL 0.9% 100 ML IV SCH (05:32)
[2019-02-05] MEDS ORDERED: LASIX IV SCH ×2 (06:00→10:00)
[2019-02-05 06:18] LABS: Band Neutrophils # (Manual) 1.1 K/mm3; Basophils % (Manual) 0 % (0.0-1.8); Eosinophils % (Manual) 0 % (0.0-4.3); Total Cells Counted 100
[2019-02-05 06:19] LABS: Crenated RBC 2+; Platelet Estimate Consistent w Auto
[2019-02-05] MEDS: SOLU-Medrol IV SCH ×2 (10:32→22:41)
[2019-02-05] MEDS: D5W/0.45% NACL/KCL 30 MEQ 30 MEQ/1,000 ML BAG IV SCH (10:34)
[2019-02-05] MEDS ORDERED: NACL 0.9% 500 ML 500 ML IV ONE (10:46)
--- NOTE | 2019-02-05 11:01 | Progress Note ---
Assessment and Plan Acute hypoxemic respiratory failure, on continuous noninvasive ventilation. Symptomatic anemia with positive stool guaiac. Acute chronic obstructive pulmonary disease exacerbation. Possible acute gastrointestinal bleed. Acute congestive heart failure exacerbation. Seceer Sepsis with Shock Systemic inflammatory response syndrome. Hypokalemia. Elevated serum troponin. Adult failure to thrive. (I discussed with her at bedside and she was A&O; she re-iterated what she had just told her that she would want to be intubated and have CPR if necessary) - continue RTC BIPAP for now - plan to intubate if no improvement over next 24-48 hours - prn anxiolytics - increased lasix to bid dosing - prn ABG's - place NGT if intubated - continue to wean supplemental oxygen to keep O2 sats >/= 88-90% - continue bronchodilators with pulmonary hygiene per RT - Strict intake and output monitoring - Maintenance of sleep -wake cycle - Mobility protocol for pressure ulcer prophylaxis - continue GI & VTE prophylaxis - Influenza and pneumonia vaccination per protocol PROGNOSIS: GUARDED CONDITION: CRITICAL CODE STATUS: FULL CODE The high probability of a clinically significant, sudden or life-threatening deterioration of the [respiratory, neurology, renal] system(s) required my full and direct attention, intervention and personal management. The aggregate critical care time was [35] minutes without overlap. Time includes spent on; [x] Data Review and interpretation [x] Patient assessment and monitoring of vital signs [x] Documentation [x] Medication orders and management Subjective Date of service: 02/05/19 Principal diagnosis: Ac hypoxemic Resp failure; Severe Anemia; AE-COPD; G.I. Bleed; Septic Shock Interval history: Patient is seen today for: Acute hypoxemic Resp failure; Symptomatic anemia; AE- COPD; G.I. Bleed; Acute congestive heart failure exacerbation; Hypotension; SIRS Seen and examined at bedside; 24-hour events reviewed; nursing and respiratory care staff consulted; no adverse overnight events reported to me; remains on continuous BIPAP essentially; tolerated only a few minutes off and quickly desaturated; no emesis or overt aspiration Objective Vital Signs - 12hr 02/04/19 02/04/19 02/04/19 23:00 23:06 23:11 Temperature Pulse Rate 84 87 84 Pulse Rate [ Bilateral] Pulse Rate [ From Monitor] Respiratory 19 22 20 Rate Respiratory Rate [Bilateral ] Blood Pressure 109/64 109/64 128/75 O2 Sat by Pulse 99 100 100 Oximetry 02/04/19 02/04/19 02/04/19 23:21 23:30 23:41 Temperature Pulse Rate 81 84 81 Pulse Rate [ Bilateral] Pulse Rate [ From Monitor] Respiratory 23 21 20 Rate Respiratory Rate [Bilateral ] Blood Pressure 111/64 110/61 111/64 O2 Sat by Pulse 100 100 100 Oximetry 02/04/19 02/05/19 02/05/19 23:51 00:00 00:11 Temperature Pulse Rate 81 65 79 Pulse Rate [ Bilateral] Pulse Rate [ 77 From Monitor] Respiratory 20 24 21 Rate Respiratory Rate [Bilateral ] Blood Pressure 114/68 116/60 110/61 O2 Sat by Pulse 100 98 100 Oximetry 02/05/19 02/05/19 02/05/19 00:20 00:30 00:41 Temperature Pulse Rate 80 80 87 Pulse Rate [ Bilateral] Pulse Rate [ From Monitor] Respiratory 22 19 21 Rate Respiratory Rate [Bilateral ] Blood Pressure 111/62 118/66 111/62 O2 Sat by Pulse 100 100 100 Oximetry 02/05/19 02/05/19 02/05/19 00:51 01:00 01:11 Temperature Pulse Rate 97 H 91 H 105 H Pulse Rate [ Bilateral] Pulse Rate [ From Monitor] Respiratory 27 H 25 H 36 H Rate Respiratory Rate [Bilateral ] Blood Pressure 120/69 127/75 118/66 O2 Sat by Pulse 100 100 99 Oximetry 02/05/19 02/05/19 02/05/19 01:21 01:30 01:41 Temperature Pulse Rate 99 H 98 H 96 H Pulse Rate [ Bilateral] Pulse Rate [ From Monitor] Respiratory 36 H 35 H 36 H Rate Respiratory Rate [Bilateral ] Blood Pressure 121/79 128/80 128/80 O2 Sat by Pulse 99 98 97 Oximetry 02/05/19 02/05/19 02/05/19 01:51 02:00 02:11 Temperature Pulse Rate 104 H 104 H 108 H Pulse Rate [ 104 H Bilateral] Pulse Rate [ From Monitor] Respiratory 37 H 35 H 36 H Rate Respiratory 24 Rate [Bilateral ] Blood Pressure 124/74 123/84 124/74 O2 Sat by Pulse 99 97 99 Oximetry 02/05/19 02/05/19 02/05/19 02:20 02:21 02:30 Temperature Pulse Rate 51 L 65 Pulse Rate [ Bilateral] Pulse Rate [ From Monitor] Respiratory 38 H 19 27 H Rate Respiratory Rate [Bilateral ] Blood Pressure 114/54 103/56 O2 Sat by Pulse 100 96 Oximetry 02/05/19 02/05/19 02/05/19 02:41 02:51 03:00 Temperature Pulse Rate 72 75 66 Pulse Rate [ Bilateral] Pulse Rate [ From Monitor] Respiratory 25 H 29 H 25 H Rate Respiratory Rate [Bilateral ] Blood Pressure 103/56 102/58 103/56 O2 Sat by Pulse 100 100 97 Oximetry 02/05/19 02/05/19 02/05/19 03:11 03:20 03:21 Temperature Pulse Rate 70 79 Pulse Rate [ Bilateral] Pulse Rate [ 68 From Monitor] Respiratory 28 H 24 31 H Rate Respiratory Rate [Bilateral ] Blood Pressure 103/56 105/60 O2 Sat by Pulse 100 98 100 Oximetry 02/05/19 02/05/19 02/05/19 03:27 03:30 03:41 Temperature 99.3 F Pulse Rate 79 82 Pulse Rate [ Bilateral] Pulse Rate [ From Monitor] Respiratory 23 24 Rate Respiratory Rate [Bilateral ] Blood Pressure 110/65 105/60 O2 Sat by Pulse 100 99 Oximetry 02/05/19 02/05/19 02/05/19 03:51 04:00 04:11 Temperature Pulse Rate 80 70 86 Pulse Rate [ Bilateral] Pulse Rate [ From Monitor] Respiratory 27 H 29 H 28 H Rate Respiratory Rate [Bilateral ] Blood Pressure 110/63 114/61 114/61 O2 Sat by Pulse 99 91 99 Oximetry 02/05/19 02/05/19 02/05/19 04:21 04:30 04:41 Temperature Pulse Rate 81 85 95 H Pulse Rate [ Bilateral] Pulse Rate [ From Monitor] Respiratory 35 H 23 24 Rate Respiratory Rate [Bilateral ] Blood Pressure 115/64 116/68 114/61 O2 Sat by Pulse 98 100 100 Oximetry 02/05/19 02/05/19 02/05/19 04:51 05:00 05:11 Temperature Pulse Rate 92 H 83 69 Pulse Rate [ Bilateral] Pulse Rate [ From Monitor] Respiratory 33 H 36 H 26 H Rate Respiratory Rate [Bilateral ] Blood Pressure 119/75 108/66 108/66 O2 Sat by Pulse 100 100 100 Oximetry 02/05/19 02/05/19 02/05/19 05:21 05:30 05:41 Temperature Pulse Rate 79 70 81 Pulse Rate [ Bilateral] Pulse Rate [ From Monitor] Respiratory 17 23 20 Rate Respiratory Rate [Bilateral ] Blood Pressure 105/59 112/60 112/60 O2 Sat by Pulse 100 100 100 Oximetry 02/05/19 02/05/19 02/05/19 05:51 06:00 06:11 Temperature Pulse Rate 69 68 67 Pulse Rate [ Bilateral] Pulse Rate [ From Monitor] Respiratory 15 23 21 Rate Respiratory Rate [Bilateral ] Blood Pressure 111/68 117/64 117/64 O2 Sat by Pulse 100 100 100 Oximetry 02/05/19 02/05/19 02/05/19 06:21 06:30 06:41 Temperature Pulse Rate 83 88 108 H Pulse Rate [ Bilateral] Pulse Rate [ From Monitor] Respiratory 19 18 32 H Rate Respiratory Rate [Bilateral ] Blood Pressure 114/68 122/72 122/72 O2 Sat by Pulse 100 100 99 Oximetry 02/05/19 02/05/19 02/05/19 06:51 07:00 07:11 Temperature Pulse Rate 100 H 62 83 Pulse Rate [ Bilateral] Pulse Rate [ From Monitor] Respiratory 23 22 17 Rate Respiratory Rate [Bilateral ] Blood Pressure 120/73 117/64 117/64 O2 Sat by Pulse 99 100 100 Oximetry 02/05/19 02/05/19 02/05/19 07:21 07:30 07:41 Temperature Pulse Rate 99 H 79 89 Pulse Rate [ Bilateral] Pulse Rate [ From Monitor] Respiratory 26 H 22 22 Rate Respiratory Rate [Bilateral ] Blood Pressure 122/72 114/68 114/68 O2 Sat by Pulse 100 100 100 Oximetry 02/05/19 02/05/19 02/05/19 07:51 08:00 08:11 Temperature 99.0 F Pulse Rate 73 86 103 H Pulse Rate [ Bilateral] Pulse Rate [ 86 From Monitor] Respiratory 22 22 33 H Rate Respiratory Rate [Bilateral ] Blood Pressure 121/66 125/81 125/81 O2 Sat by Pulse 100 99 100 Oximetry 02/05/19 02/05/19 02/05/19 08:21 08:31 08:41 Temperature Pulse Rate 97 H 111 H 74 Pulse Rate [ Bilateral] Pulse Rate [ From Monitor] Respiratory 28 H 35 H 21 Rate Respiratory Rate [Bilateral ] Blood Pressure 131/81 133/106 133/106 O2 Sat by Pulse 94 100 Oximetry 02/05/19 02/05/19 02/05/19 08:51 09:00 09:11 Temperature Pulse Rate 80 94 H 101 H Pulse Rate [ Bilateral] Pulse Rate [ From Monitor] Respiratory 21 28 H 28 H Rate Respiratory Rate [Bilateral ] Blood Pressure 123/69 130/76 130/76 O2 Sat by Pulse 100 91 95 Oximetry Constitutional: appears uncomfortable, other (elderly looking thin female; normocephalic with moderately increased respiratory effort at rest) Eyes: non-icteric ENT: oropharynx moist Neck: supple, no lymphadenopathy, JVD, other (no thyromegaly) Effort: mildly labored Ascultation: Bilateral: diminished breath sounds, rales, other (occassional a ccessory muscle use) Percussion: Bilateral: not dull Cardiovascular: regular rate and rhythm, murmur noted (systolic) Gastrointestinal: normoactive bowel sounds, soft, non-tender, non-distended Integumentary: other (poor turgor) Extremities: no cyanosis, no edema, pink and warm, pulses normal, no ischemia or petechiae Neurologic: non-focal exam (grossly), pupils equal and round, CN II-XII normal, motor strength normal and Psychiatric: mood appropriate, anxious CBC and BMP: 02/11/19 10:26 02/11/19 10:26 ABG, PT/INR, D-dimer: ABG POC ABG pH 7.310 (7.35-7.45) L 02/04/19 17:15 POC ABG pCO2 39.0 (35-45) 02/04/19 17:15 POC ABG pO2 68 (80-105) L 02/04/19 17:15 POC ABG HCO3 19.6 (22-26 mml/L) 02/04/19 17:15 POC ABG Total CO2 21 (23-27mmol/L) 02/04/19 17:15 POC ABG O2 Sat 92 02/04/19 17:15 PT/INR, D-dimer PT 19.3 Sec. (12.2-14.9) H 02/03/19 19:24 INR 1.52 (0.87-1.13) H 02/03/19 19:24 Abnormal lab findings: Abnormal Labs 02/03/19 02/03/19 02/03/19 02:57 18:06 18:06 WBC RBC 0.88 L Hgb 1.9 L* Hct 7.1 L* MCH 22 L MCHC 27 L RDW 23.3 H Plt Count 489 H Young % (Auto) 10.1 H Lymph # 1.1 L Seg Neutrophils % 71.2 H Seg Neuts % (Manual) Lymphocytes % (Manual) Seg Neutrophils # Man Lymphocytes # (Manual) PT INR POC ABG pH POC ABG pO2 Sodium Potassium Chloride Carbon Dioxide BUN Glucose Lactic Acid Calcium Troponin T C-Reactive Protein NT-Pro-B Natriuret Pep 9160 H Total Protein Albumin Triglycerides HDL Cholesterol Urine WBC (Auto) 7.0 H Crossmatch 02/03/19 02/03/19 02/03/19 18:06 18:08 18:08 WBC RBC Hgb Hct MCH MCHC RDW Plt Count Young % (Auto) Lymph # Seg Neutrophils % Seg Neuts % (Manual) Lymphocytes % (Manual) Seg Neutrophils # Man Lymphocytes # (Manual) PT INR POC ABG pH POC ABG pO2 Sodium Potassium 3.3 L Chloride Carbon Dioxide 17 L BUN Glucose Lactic Acid 9.90 H* Calcium 7.9 L Troponin T 0.134 H* C-Reactive Protein NT-Pro-B Natriuret Pep Total Protein 5.1 L Albumin 2.8 L Triglycerides 164 H HDL Cholesterol 31 L Urine WBC (Auto) Crossmatch See Detail 02/03/19 02/03/19 02/03/19 19:24 19:24 19:24 WBC RBC Hgb Hct MCH MCHC RDW Plt Count Young % (Auto) Lymph # Seg Neutrophils % Seg Neuts % (Manual) Lymphocytes % (Manual) Seg Neutrophils # Man Lymphocytes # (Manual) PT 19.3 H INR 1.52 H POC ABG pH POC ABG pO2 Sodium Potassium Chloride Carbon Dioxide BUN Glucose Lactic Acid 6.30 H* Calcium Troponin T 0.139 H* C-Reactive Protein NT-Pro-B Natriuret Pep Total Protein Albumin Triglycerides HDL Cholesterol Urine WBC (Auto) Crossmatch 02/03/19 02/03/19 02/04/19 20:30 23:36 01:18 WBC RBC Hgb Hct MCH MCHC RDW Plt Count Young % (Auto) Lymph # Seg Neutrophils % Seg Neuts % (Manual) Lymphocytes % (Manual) Seg Neutrophils # Man Lymphocytes # (Manual) PT INR POC ABG pH 7.515 H POC ABG pO2 121 H Sodium Potassium Chloride Carbon Dioxide BUN Glucose Lactic Acid 6.50 H* 5.70 H* Calcium Troponin T C-Reactive Protein NT-Pro-B Natriuret Pep Total Protein Albumin Triglycerides HDL Cholesterol Urine WBC (Auto) Crossmatch 02/04/19 02/04/19 02/04/19 04:35 04:35 04:35 WBC 17.5 H RBC Hgb Hct MCH 27 L MCHC RDW 15.9 H Plt Count Young % (Auto) Lymph # Seg Neutrophils % Seg Neuts % (Manual) 96.0 H Lymphocytes % (Manual) 1.0 L Seg Neutrophils # Man 16.8 H Lymphocytes # (Manual) 0.2 L PT INR POC ABG pH POC ABG pO2 Sodium 147 H Potassium 3.2 L Chloride Carbon Dioxide 21 L BUN Glucose 170 H Lactic Acid 3.60 H* Calcium 7.9 L Troponin T C-Reactive Protein NT-Pro-B Natriuret Pep Total Protein Albumin Triglycerides HDL Cholesterol Urine WBC (Auto) Crossmatch 02/04/19 02/04/19 02/04/19 10:59 17:07 17:07 WBC RBC Hgb Hct MCH MCHC RDW Plt Count Young % (Auto) Lymph # Seg Neutrophils % Seg Neuts % (Manual) Lymphocytes % (Manual) Seg Neutrophils # Man Lymphocytes # (Manual) PT INR POC ABG pH POC ABG pO2 Sodium Potassium 3.1 L Chloride Carbon Dioxide BUN Glucose Lactic Acid 2.30 H* Calcium Troponin T C-Reactive Protein 9.30 H NT-Pro-B Natriuret Pep Total Protein Albumin Triglycerides HDL Cholesterol Urine WBC (Auto) Crossmatch 02/04/19 02/04/19 02/05/19 17:15 21:04 00:05 WBC RBC Hgb Hct MCH MCHC RDW Plt Count Young % (Auto) Lymph # Seg Neutrophils % Seg Neuts % (Manual) Lymphocytes % (Manual) Seg Neutrophils # Man Lymphocytes # (Manual) PT INR POC ABG pH 7.310 L POC ABG pO2 68 L Sodium Potassium Chloride Carbon Dioxide BUN Glucose Lactic Acid 2.40 H* 2.70 H* Calcium Troponin T C-Reactive Protein NT-Pro-B Natriuret Pep Total Protein Albumin Triglycerides HDL Cholesterol Urine WBC (Auto) Crossmatch 02/05/19 02/05/19 04:41 04:41 WBC 15.1 H RBC Hgb Hct MCH MCHC RDW 16.6 H Plt Count Young % (Auto) Lymph # Seg Neutrophils % Seg Neuts % (Manual) 90.0 H Lymphocytes % (Manual) 2.0 L Seg Neutrophils # Man 13.6 H Lymphocytes # (Manual) 0.3 L PT INR POC ABG pH POC ABG pO2 Sodium 147 H Potassium Chloride 114.1 H Carbon Dioxide 20 L BUN 19 H Glucose 192 H Lactic Acid Calcium 7.4 L Troponin T C-Reactive Protein NT-Pro-B Natriuret Pep Total Protein Albumin Triglycerides HDL Cholesterol Urine WBC (Auto) Crossmatch Chest x-ray: image reviewed (Bilateral pulmonary infiltrates and gross cardiomegaly) Allied health notes reviewed: nursing
[2019-02-05] MEDS ORDERED: NACL 0.9% 1000 ML 1,000 ML IV ONE (11:30)
--- NOTE | 2019-02-05 11:45 | Gastroenterology Progress Note ---
Assessment and Plan 1.GI bleed/melena 2.anemia -H/H 11.7/34.5-stable s/p 5 units PRBCs (1.9/7.1 on admission) -continue to monitor H/H and transfuse as needed -hold blood thinning medication -no active signs of bleeding overnight or this am per nursing -etiology-possible ulcer given history of heavy NSAID use vs other -clinically, patient remains in ICU with respiratory distress noted this am on high flow oxygen. Denies abd pain or N/V. -will consider EGD once patient's respiratory status has improved -okay to start on clear liquids -continue PPI and supportive care -will follow Subjective Date of service: 02/05/19 Principal diagnosis: GI bleed Interval history: Patient remains in ICU. Currently on high flow oxygen with c/o of SOB and respirations labored. Denies abd pain or N/V. No active signs of bleeding overnight or this am per nursing. Objective - Constitutional Vitals: Temp Pulse Resp BP Pulse Ox 99.0 F 102 H 22 130/76 99 02/05/19 08:00 02/05/19 10:00 02/05/19 10:00 02/05/19 09:11 02/05/19 10:00 General appearance: mild distress (respiratory distress) - Respiratory Respiratory effort: labored Respiratory: bilateral: rhonchi - Cardiovascular Rhythm: other (tachycardia) - Gastrointestinal General gastrointestinal: Present: soft, non-tender, non-distended, normal bowel sounds - Labs CBC & Chem 7: 02/05/19 04:41 02/05/19 04:41 Labs: Laboratory Results - last 24 hr 02/04/19 02/04/19 02/04/19 10:59 17:07 17:07 WBC RBC Hgb Hct MCV MCH MCHC RDW Plt Count Add Manual Diff Total Counted Seg Neutrophils % Seg Neuts % (Manual) Band Neutrophils % Lymphocytes % (Manual) Reactive Lymphs % (Man) Monocytes % (Manual) Eosinophils % (Manual) Basophils % (Manual) Metamyelocytes % Myelocytes % Promyelocytes % Blast Cells % Nucleated RBC % Seg Neutrophils # Man Band Neutrophils # Lymphocytes # (Manual) Abs React Lymphs (Man) Monocytes # (Manual) Eosinophils # (Manual) Basophils # (Manual) Metamyelocytes # Myelocytes # Promyelocytes # Blast Cells # WBC Morphology Hypersegmented Neuts Hyposegmented Neuts Hypogranular Neuts Smudge Cells Toxic Granulation Toxic Vacuolation Dohle Bodies Pelger-Huet Anomaly Fermin Rods Platelet Estimate Clumped Platelets Plt Clumps, EDTA Large Platelets Giant Platelets Platelet Satelliting Plt Morphology Comment RBC Morphology Dimorphic RBCs Polychromasia Hypochromasia Poikilocytosis Anisocytosis Microcytosis Macrocytosis Spherocytes Pappenheimer Bodies Sickle Cells Target Cells Tear Drop Cells Ovalocytes Helmet Cells [place] Bodies Gilliam Rings English Cells Bite Cells Crenated Cell Elliptocytes Acanthocytes (Spur) Rouleaux Hemoglobin C Crystals Schistocytes Malaria parasites Kend[place] Bodies Hem Pathologist Commnt POC ABG pH POC ABG pCO2 POC ABG pO2 POC ABG HCO3 POC ABG Total CO2 POC ABG O2 Sat POC ABG Base Excess FiO2 Sodium Potassium 3.1 L Chloride Carbon Dioxide Anion Gap BUN Creatinine Estimated GFR BUN/Creatinine Ratio Glucose Lactic Acid 2.30 H* Calcium Magnesium C-Reactive Protein 9.30 H 02/04/19 02/04/19 02/04/19 17:15 21:04 Unknown WBC RBC Hgb Hct MCV MCH MCHC RDW Plt Count Add Manual Diff Total Counted Seg Neutrophils % Seg Neuts % (Manual) Band Neutrophils % Lymphocytes % (Manual) Reactive Lymphs % (Man) Monocytes % (Manual) Eosinophils % (Manual) Basophils % (Manual) Metamyelocytes % Myelocytes % Promyelocytes % Blast Cells % Nucleated RBC % Seg Neutrophils # Man Band Neutrophils # Lymphocytes # (Manual) Abs React Lymphs (Man) Monocytes # (Manual) Eosinophils # (Manual) Basophils # (Manual) Metamyelocytes # Myelocytes # Promyelocytes # Blast Cells # WBC Morphology Hypersegmented Neuts Hyposegmented Neuts Hypogranular Neuts Smudge Cells Toxic Granulation Toxic Vacuolation Dohle Bodies Pelger-Huet Anomaly Ferm[place] Rods Platelet Estimate Clumped Platelets Plt Clumps, EDTA Large Platelets Giant Platelets Platelet Satelliting Plt Morphology Comment RBC Morphology Dimorphic RBCs Polychromasia Hypochromasia Poikilocytosis Anisocytosis Microcytosis Macrocytosis Spherocytes Pappenheimer Bodies Sickle Cells Target Cells Tear Drop Cells Ovalocytes Helmet Cells [place] Bodies Gilliam Rings English Cells Bite Cells Crenated Cell Elliptocytes Acanthocytes (Spur) Rouleaux Hemoglobin C Crystals Schistocytes Malaria parasites Kend[place] Bodies Hem Pathologist Commnt POC ABG pH 7.310 L POC ABG pCO2 39.0 POC ABG pO2 68 L POC ABG HCO3 19.6 POC ABG Total CO2 21 POC ABG O2 Sat 92 POC ABG Base Excess -7 FiO2 75 Sodium Potassium Chloride Carbon Dioxide Anion Gap BUN Creatinine Estimated GFR BUN/Creatinine Ratio Glucose Lactic Acid 2.40 H* Calcium Magnesium 2.20 C-Reactive Protein 02/05/19 02/05/19 02/05/19 00:05 04:41 04:41 WBC 15.1 H RBC 4.17 Hgb 11.7 Hct 34.5 MCV 83 MCH 28 MCHC 34 RDW 16.6 H Plt Count 256 Add Manual Diff Complete Total Counted 100 Seg Neutrophils % Group Activities Aide Seg Neuts % (Manual) 90.0 H Band Neutrophils % 7.0 Lymphocytes % (Manual) 2.0 L Reactive Lymphs % (Man) 0 Monocytes % (Manual) 1.0 Eosinophils % (Manual) 0 Basophils % (Manual) 0 Metamyelocytes % 0 Myelocytes % 0 Promyelocytes % 0 Blast Cells % 0 Nucleated RBC % Not Reportable Seg Neutrophils # Man 13.6 H Band Neutrophils # 1.1 Lymphocytes # (Manual) 0.3 L Abs React Lymphs (Man) 0.0 Monocytes # (Manual) 0.2 Eosinophils # (Manual) 0.0 Basophils # (Manual) 0.0 Metamyelocytes # 0.0 Myelocytes # 0.0 Promyelocytes # 0.0 Blast Cells # 0.0 WBC Morphology Not Reportable Hypersegmented Neuts Not Reportable Hyposegmented Neuts Not Reportable Hypogranular Neuts Not Reportable Smudge Cells Not Reportable Toxic Granulation Not Reportable Toxic Vacuolation Not Reportable Dohle Bodies Not Reportable Pelger-Huet Anomaly Not Reportable Fermin Rods Not Reportable Platelet Estimate Consistent w auto Clumped Platelets Not Reportable Plt Clumps, EDTA Not Reportable Large Platelets Not Reportable Giant Platelets Not Reportable Platelet Satelliting Not Reportable Plt Morphology Comment Not Reportable RBC Morphology Not Reportable Dimorphic RBCs Not Reportable Polychromasia Not Reportable Hypochromasia Not Reportable Poikilocytosis Not Reportable Anisocytosis Not Reportable Microcytosis Not Reportable Macrocytosis Not Reportable Spherocytes Not Reportable Pappenheimer Bodies Not Reportable Sickle Cells Not Reportable Target Cells Not Reportable Tear Drop Cells Not Reportable Ovalocytes Not Reportable Helmet Cells Not Reportable [place] Bodies Not Reportable Gilliam Rings Not Reportable English Cells Not Reportable Bite Cells Not Reportable Crenated Cell 2+ Elliptocytes Not Reportable Acanthocytes (Spur) Not Reportable Rouleaux Not Reportable Hemoglobin C Crystals Not Reportable Schistocytes Not Reportable Malaria parasites Not Reportable [place] Bodies Not Reportable Hem Pathologist Commnt No POC ABG pH POC ABG pCO2 POC ABG pO2 POC ABG HCO3 POC ABG Total CO2 POC ABG O2 Sat POC ABG Base Excess FiO2 Sodium 147 H Potassium 3.9 D Chloride 114.1 H Carbon Dioxide 20 L Anion Gap 17 BUN 19 H Creatinine 0.8 Estimated GFR > 60 BUN/Creatinine Ratio 24 Glucose 192 H Lactic Acid 2.70 H* Calcium 7.4 L Magnesium C-Reactive Protein 02/05/19 02/05/19 04:41 04:41 WBC RBC Hgb Hct MCV MCH MCHC RDW Plt Count Add Manual Diff Total Counted Seg Neutrophils % Seg Neuts % (Manual) Band Neutrophils % Lymphocytes % (Manual) Reactive Lymphs % (Man) Monocytes % (Manual) Eosinophils % (Manual) Basophils % (Manual) Metamyelocytes % Myelocytes % Promyelocytes % Blast Cells % Nucleated RBC % Seg Neutrophils # Man Band Neutrophils # Lymphocytes # (Manual) Abs React Lymphs (Man) Monocytes # (Manual) Eosinophils # (Manual) Basophils # (Manual) Metamyelocytes # Myelocytes # Promyelocytes # Blast Cells # WBC Morphology TNR Hypersegmented Neuts Hyposegmented Neuts Hypogranular Neuts Smudge Cells Toxic Granulation Toxic Vacuolation Dohle Bodies Pelger-Huet Anomaly Fermin Rods Platelet Estimate Clumped Platelets Plt Clumps, EDTA Large Platelets Giant Platelets Platelet Satelliting Plt Morphology Comment RBC Morphology Dimorphic RBCs Polychromasia Hypochromasia Poikilocytosis Anisocytosis Microcytosis Macrocytosis Spherocytes Pappenheimer Bodies Sickle Cells Target Cells Tear Drop Cells Ovalocytes Helmet Cells [place] Bodies Gilliam Rings English Cells Bite Cells Crenated Cell Elliptocytes Acanthocytes (Spur) Rouleaux Hemoglobin C Crystals Schistocytes Malaria parasites [place] Bodies Hem Pathologist Commnt POC ABG pH POC ABG pCO2 POC ABG pO2 POC ABG HCO3 POC ABG Total CO2 POC ABG O2 Sat POC ABG Base Excess FiO2 Sodium Potassium Chloride Carbon Dioxide Anion Gap BUN Creatinine Estimated GFR BUN/Creatinine Ratio Glucose Lactic Acid 1.70 Calcium Magnesium C-Reactive Protein
--- NOTE | 2019-02-05 12:38 | Progress Note ---
Assessment and Plan 1. Acute encephalopathy, improving 2. Acute hypoxic respiratory failure with Severe respiratory alkalosis 3. Acute GI bleed, possible PUD 4. Acute blood loss anemia (due to #2) 5. Hypokalemia, cont replete 6. CHF with acute exacerbation ( EF 20-25%) 7. SIRS, source of infection unclear 8. Severe protein calorie malnutrition 9. Hypernatremia, low volume hypotonic fluid Plan: Monitor at ICU Started patient on BiPAP, monitor with serial XRY and abg, cont nebs Consulted GI for acute GI bleed s/p 5 units of packed RBCs monitor h/h, place on iv lasix Avoid NSAIDs, follow Cx clear liquid diet, iv abx, BMP in the a.m. replete electrolytes, consult dietary No DVT prophylaxis (GI bleed) The high probability of a clinically significant, sudden or life threatening deterioration of the [multiple] system(s) required my full and direct attention, intervention and personal management. The aggregate critical care time was [35] minutes. This time is in addition to time spent performing reported procedures but includes the following: [x] Data Review and interpretation [x] Patient assessment and monitoring of vital signs [x] Documentation [x] Medication orders and management Brief history: Patient is a 68-year-old female brought by with acute respiratory distress in poor condition, she is being treated for GI bleed, acute respiratory failure. Subjective Date of service: 02/05/19 Principal diagnosis: GI bleed Interval history: Patient seen and examined on biPAP, able to follow commend, restraint at bedside, updated discussed with GI and CC attending Objective - Exam Narrative Exam: General appearance: Present: moderate distress - EENT ENT: hearing intact - Neck Neck: Present: normal ROM - Respiratory Respiratory effort: normal Respiratory: bilateral: rhonchi - Cardiovascular Rhythm: regular Heart Sounds: Present: S1 & S2 - Extremities Extremities: no ischemia Peripheral Pulses: within normal limits - Abdominal General gastrointestinal: Present: non-tender, non-distended - Rectal Rectal Exam: deferred - Integumentary Integumentary: Present: warm, dry - Musculoskeletal Musculoskeletal: generalized weakness - Psychiatric Psychiatric: slightly agitated - Neurologic Neurologic: moves all extremities - Constitutional Vitals: Vital Signs - 12hr 02/05/19 02/05/19 02/05/19 00:41 00:51 01:00 Temperature Pulse Rate 87 97 H 91 H Pulse Rate [ Bilateral] Pulse Rate [ From Monitor] Respiratory 21 27 H 25 H Rate Respiratory Rate [Bilateral ] Blood Pressure 111/62 120/69 127/75 O2 Sat by Pulse 100 100 100 Oximetry 02/05/19 02/05/19 02/05/19 01:11 01:21 01:30 Temperature Pulse Rate 105 H 99 H 98 H Pulse Rate [ Bilateral] Pulse Rate [ From Monitor] Respiratory 36 H 36 H 35 H Rate Respiratory Rate [Bilateral ] Blood Pressure 118/66 121/79 128/80 O2 Sat by Pulse 99 99 98 Oximetry 02/05/19 02/05/19 02/05/19 01:41 01:51 02:00 Temperature Pulse Rate 96 H 104 H 104 H Pulse Rate [ 104 H Bilateral] Pulse Rate [ From Monitor] Respiratory 36 H 37 H 35 H Rate Respiratory 24 Rate [Bilateral ] Blood Pressure 128/80 124/74 123/84 O2 Sat by Pulse 97 99 97 Oximetry 02/05/19 02/05/19 02/05/19 02:11 02:20 02:21 Temperature Pulse Rate 108 H 51 L Pulse Rate [ Bilateral] Pulse Rate [ From Monitor] Respiratory 36 H 38 H 19 Rate Respiratory Rate [Bilateral ] Blood Pressure 124/74 114/54 O2 Sat by Pulse 99 100 Oximetry 02/05/19 02/05/19 02/05/19 02:30 02:41 02:51 Temperature Pulse Rate 65 72 75 Pulse Rate [ Bilateral] Pulse Rate [ From Monitor] Respiratory 27 H 25 H 29 H Rate Respiratory Rate [Bilateral ] Blood Pressure 103/56 103/56 102/58 O2 Sat by Pulse 96 100 100 Oximetry 02/05/19 02/05/19 02/05/19 03:00 03:11 03:20 Temperature Pulse Rate 66 70 Pulse Rate [ Bilateral] Pulse Rate [ 68 From Monitor] Respiratory 25 H 28 H 24 Rate Respiratory Rate [Bilateral ] Blood Pressure 103/56 103/56 O2 Sat by Pulse 97 100 98 Oximetry 02/05/19 02/05/19 02/05/19 03:21 03:27 03:30 Temperature 99.3 F Pulse Rate 79 79 Pulse Rate [ Bilateral] Pulse Rate [ From Monitor] Respiratory 31 H 23 Rate Respiratory Rate [Bilateral ] Blood Pressure 105/60 110/65 O2 Sat by Pulse 100 100 Oximetry 02/05/19 02/05/19 02/05/19 03:41 03:51 04:00 Temperature Pulse Rate 82 80 70 Pulse Rate [ Bilateral] Pulse Rate [ From Monitor] Respiratory 24 27 H 29 H Rate Respiratory Rate [Bilateral ] Blood Pressure 105/60 110/63 114/61 O2 Sat by Pulse 99 99 91 Oximetry 02/05/19 02/05/19 02/05/19 04:11 04:21 04:30 Temperature Pulse Rate 86 81 85 Pulse Rate [ Bilateral] Pulse Rate [ From Monitor] Respiratory 28 H 35 H 23 Rate Respiratory Rate [Bilateral ] Blood Pressure 114/61 115/64 116/68 O2 Sat by Pulse 99 98 100 Oximetry 02/05/19 02/05/19 02/05/19 04:41 04:51 05:00 Temperature Pulse Rate 95 H 92 H 83 Pulse Rate [ Bilateral] Pulse Rate [ From Monitor] Respiratory 24 33 H 36 H Rate Respiratory Rate [Bilateral ] Blood Pressure 114/61 119/75 108/66 O2 Sat by Pulse 100 100 100 Oximetry 02/05/19 02/05/19 02/05/19 05:11 05:21 05:30 Temperature Pulse Rate 69 79 70 Pulse Rate [ Bilateral] Pulse Rate [ From Monitor] Respiratory 26 H 17 23 Rate Respiratory Rate [Bilateral ] Blood Pressure 108/66 105/59 112/60 O2 Sat by Pulse 100 100 100 Oximetry 02/05/19 02/05/19 02/05/19 05:41 05:51 06:00 Temperature Pulse Rate 81 69 68 Pulse Rate [ Bilateral] Pulse Rate [ From Monitor] Respiratory 20 15 23 Rate Respiratory Rate [Bilateral ] Blood Pressure 112/60 111/68 117/64 O2 Sat by Pulse 100 100 100 Oximetry 02/05/19 02/05/19 02/05/19 06:11 06:21 06:30 Temperature Pulse Rate 67 83 88 Pulse Rate [ Bilateral] Pulse Rate [ From Monitor] Respiratory 21 19 18 Rate Respiratory Rate [Bilateral ] Blood Pressure 117/64 114/68 122/72 O2 Sat by Pulse 100 100 100 Oximetry 02/05/19 02/05/19 02/05/19 06:41 06:51 07:00 Temperature Pulse Rate 108 H 100 H 62 Pulse Rate [ Bilateral] Pulse Rate [ From Monitor] Respiratory 32 H 23 22 Rate Respiratory Rate [Bilateral ] Blood Pressure 122/72 120/73 117/64 O2 Sat by Pulse 99 99 100 Oximetry 02/05/19 02/05/19 02/05/19 07:11 07:21 07:30 Temperature Pulse Rate 83 99 H 79 Pulse Rate [ Bilateral] Pulse Rate [ From Monitor] Respiratory 17 26 H 22 Rate Respiratory Rate [Bilateral ] Blood Pressure 117/64 122/72 114/68 O2 Sat by Pulse 100 100 100 Oximetry 02/05/19 02/05/19 02/05/19 07:41 07:51 08:00 Temperature 99.0 F Pulse Rate 89 73 86 Pulse Rate [ Bilateral] Pulse Rate [ 86 From Monitor] Respiratory 22 22 22 Rate Respiratory Rate [Bilateral ] Blood Pressure 114/68 121/66 125/81 O2 Sat by Pulse 100 100 99 Oximetry 02/05/19 02/05/19 02/05/19 08:11 08:21 08:31 Temperature Pulse Rate 103 H 97 H 111 H Pulse Rate [ Bilateral] Pulse Rate [ From Monitor] Respiratory 33 H 28 H 35 H Rate Respiratory Rate [Bilateral ] Blood Pressure 125/81 131/81 133/106 O2 Sat by Pulse 100 94 Oximetry 02/05/19 02/05/19 02/05/19 08:41 08:51 09:00 Temperature Pulse Rate 74 80 94 H Pulse Rate [ Bilateral] Pulse Rate [ From Monitor] Respiratory 21 21 28 H Rate Respiratory Rate [Bilateral ] Blood Pressure 133/106 123/69 130/76 O2 Sat by Pulse 100 100 91 Oximetry 02/05/19 02/05/19 02/05/19 09:10 09:11 09:20 Temperature Pulse Rate 101 H Pulse Rate [ 110 H 116 H Bilateral] Pulse Rate [ From Monitor] Respiratory 28 H Rate Respiratory 29 H 28 H Rate [Bilateral ] Blood Pressure 130/76 O2 Sat by Pulse 95 Oximetry 02/05/19 02/05/19 10:00 12:00 Temperature 98.6 F Pulse Rate 102 H Pulse Rate [ Bilateral] Pulse Rate [ From Monitor] Respiratory 22 Rate Respiratory Rate [Bilateral ] Blood Pressure O2 Sat by Pulse 99 Oximetry - Labs CBC & Chem 7: 02/06/19 11:42 02/06/19 11:42 Labs: Abnormal lab results 02/04/19 02/04/19 02/04/19 Range/Units 17:07 17:07 17:15 WBC (4.5-11.0) K/mm3 RDW (13.2-15.2) % Seg Neuts % (Manual) (40.0-70.0) % Lymphocytes % (Manual) (13.4-35.0) % Seg Neutrophils # Man (1.8-7.7) K/mm3 Lymphocytes # (Manual) (1.2-5.4) K/mm3 POC ABG pH 7.310 L (7.35-7.45) POC ABG pO2 68 L (80-105) Sodium (137-145) mmol/L Chloride (98-107) mmol/L Carbon Dioxide (22-30) mmol/L BUN (7-17) mg/dL Glucose (65-100) mg/dL Lactic Acid 2.30 H* (0.7-2.0) mmol/L Calcium (8.4-10.2) mg/dL C-Reactive Protein 9.30 H (0.00-1.30) mg/dL 02/04/19 02/05/19 02/05/19 Range/Units 21:04 00:05 04:41 WBC 15.1 H (4.5-11.0) K/mm3 RDW 16.6 H (13.2-15.2) % Seg Neuts % (Manual) 90.0 H (40.0-70.0) % Lymphocytes % (Manual) 2.0 L (13.4-35.0) % Seg Neutrophils # Man 13.6 H (1.8-7.7) K/mm3 Lymphocytes # (Manual) 0.3 L (1.2-5.4) K/mm3 POC ABG pH (7.35-7.45) POC ABG pO2 (80-105) Sodium (137-145) mmol/L Chloride (98-107) mmol/L Carbon Dioxide (22-30) mmol/L BUN (7-17) mg/dL Glucose (65-100) mg/dL Lactic Acid 2.40 H* 2.70 H* (0.7-2.0) mmol/L Calcium (8.4-10.2) mg/dL C-Reactive Protein (0.00-1.30) mg/dL 02/05/19 Range/Units 04:41 WBC (4.5-11.0) K/mm3 RDW (13.2-15.2) % Seg Neuts % (Manual) (40.0-70.0) % Lymphocytes % (Manual) (13.4-35.0) % Seg Neutrophils # Man (1.8-7.7) K/mm3 Lymphocytes # (Manual) (1.2-5.4) K/mm3 POC ABG pH (7.35-7.45) POC ABG pO2 (80-105) Sodium 147 H (137-145) mmol/L Chloride 114.1 H (98-107) mmol/L Carbon Dioxide 20 L (22-30) mmol/L BUN 19 H (7-17) mg/dL Glucose 192 H (65-100) mg/dL Lactic Acid (0.7-2.0) mmol/L Calcium 7.4 L (8.4-10.2) mg/dL C-Reactive Protein (0.00-1.30) mg/dL
[2019-02-05] MEDS ORDERED: ATIVAN IV ONE (23:15)
[2019-02-06] MEDS ORDERED: LASIX IV ONE (01:00)
[2019-02-06] MEDS: DUONEB *Not for PRN Use IH SCH ×4 (01:49→19:56)
[2019-02-06] MEDS: MORPHINE IV PRN (02:35)
[2019-02-06] MEDS: D5W/0.45% NACL/KCL 30 MEQ 30 MEQ/1,000 ML BAG IV SCH (02:37)
[2019-02-06] MEDS: SODIUM CHLORIDE FLUSH SYRINGE 10 ML IV SCH ×3 (02:42→21:23)
[2019-02-06] MEDS: ZOSYN/NS 3.375GM/50ML 3.375 GM/50 ML BAG IV SCH ×3 (05:30→21:22)
[2019-02-06] MEDS: LASIX IV SCH ×2 (06:04→17:31)
[2019-02-06] MEDS: PULMICORT IH SCH ×2 (08:16→19:56)
[2019-02-06] MEDS: BROVANA NEBU IH SCH ×2 (08:17→19:56)
[2019-02-06] MEDS: SOLU-Medrol IV SCH ×2 (09:37→21:22)
[2019-02-06] MEDS: PROTONIX IV SCH (09:37)
[2019-02-06] MEDS ORDERED: LEVOPHED DRIP 4 MG/NS 250 ML 0 MG/0 ML BAG IV ONE (10:44)
[2019-02-06] MEDS ORDERED: SUBLIMAZE IV PRN (10:50)
[2019-02-06] MEDS ORDERED: ARTIFICIAL TEARS OPHTH OINT OU PRN (10:50)
[2019-02-06] MEDS ORDERED: VASELINE LIP THERAPY TP PRN (10:50)
[2019-02-06] MEDS ORDERED: fentaNYL DRIP Premix 2,000 MCG/100 ML BAG IV ONE (10:55)
[2019-02-06] MEDS ORDERED: DIPRIVAN 10 MG/ML IV ONE ×3 (11:00→12:00)
[2019-02-06] MEDS: fentaNYL DRIP Premix 2,000 MCG/100 ML BAG IV SCH (11:23)
--- NOTE | 2019-02-06 11:34 | Gastroenterology Progress Note ---
Assessment and Plan 1.GI bleed/melena 2.anemia -H/H stable -continue to monitor H/H and transfuse as needed -hold blood thinning medication -no active signs of bleeding -etiology-possible ulcer given history of heavy NSAID use vs other -clinically, patient remains in ICU with respiratory distress and is now back on BiPAP. No evidence of abd pain or N/V. -consider EGD once patient's respiratory status has improved -advance diet as tolerated -continue PPI and supportive care -no further recommendations per GI at this time -please call back once respiratory status has improved or if overt bleeding develops Subjective Date of service: 02/06/19 Principal diagnosis: GI bleed Interval history: Patient remains in ICU with continued respiratory distress. Now back on BiPAP. No evidence of abd pain or N/v. No active signs of bleeding. Objective - Constitutional Vitals: Temp Pulse Resp BP Pulse Ox 98.2 F 104 H 24 114/65 100 02/06/19 04:00 02/06/19 08:50 02/06/19 08:50 02/06/19 08:50 02/06/19 08:50 General appearance: mild distress - Respiratory Respiratory effort: labored Respiratory: bilateral: diminished, rhonchi - Cardiovascular Rhythm: other (tachycardia) - Gastrointestinal General gastrointestinal: Present: soft, non-distended, normal bowel sounds - Labs CBC & Chem 7: 02/05/19 04:41 02/05/19 04:41 Labs: Laboratory Results - last 24 hr 02/05/19 02/06/19 12:54 01:46 POC ABG pH 7.444 7.391 POC ABG pCO2 34.4 L POC ABG pO2 74 L 56 L POC ABG HCO3 20.3 20.9 POC ABG Total CO2 21 22 POC ABG O2 Sat 96 89 POC ABG Base Excess -4 -4 FiO2 50 80
--- NOTE | 2019-02-06 11:42 | Progress Note ---
Assessment and Plan Acute hypoxemic respiratory failure, on continuous noninvasive ventilation. Symptomatic anemia with positive stool guaiac. Acute chronic obstructive pulmonary disease exacerbation. Possible acute gastrointestinal bleed. Acute congestive heart failure exacerbation. Seceer Sepsis with Shock Systemic inflammatory response syndrome. Hypokalemia. Elevated serum troponin. Adult failure to thrive. (I discussed yesterday with her at bedside and she was A&O; she re-iterated what she had just told her that she would want to be intubated and have CPR if necessary) - Intubated (RSI) at bedside (AC/400/rate 20 and peep 8) - begin fentanyl drip for target RASS 0 to -1 - VAP bundle addressed - daily SAT's and SBT assessment from tomorrow - send tracheal aspirate for C&S - conservative volume management strategies (EF 20-25%) - empiric AB's and follow cultures - begin vasopressors to keep MAP > 65 mmHg - continue lasix dosing - ABG in i hour - place NGT - nutrition consult for tube feeds - continue to wean supplemental oxygen to keep O2 sats >/= 88-90% - continue bronchodilators with pulmonary hygiene per RT - Strict intake and output monitoring - Maintenance of sleep -wake cycle - Mobility protocol for pressure ulcer prophylaxis - continue GI & VTE prophylaxis - Influenza and pneumonia vaccination per protocol ... care plan discussed with her at bedside and his questions were answered PROGNOSIS: GUARDED CONDITION: CRITICAL CODE STATUS: FULL CODE The high probability of a clinically significant, sudden or life-threatening deterioration of the [respiratory, neurology, renal] system(s) required my full and direct attention, intervention and personal management. The aggregate critical care time was [38] minutes without overlap. Time includes spent on; [x] Data Review and interpretation [x] Patient assessment and monitoring of vital signs [x] Documentation [x] Medication orders and management Subjective Date of service: 02/06/19 Principal diagnosis: Ac hypoxemic Resp failure; Severe Anemia; AE-COPD; G.I. Bleed; Septic Shock Interval history: Patient is seen today for: Acute hypoxemic Resp failure; Symptomatic anemia; AE- COPD; G.I. Bleed; Acute congestive heart failure exacerbation; Hypotension; SIRS Seen and examined at bedside; 24-hour events reviewed; nursing and respiratory care staff consulted; no adverse overnight events reported to me; remains on continuous BIPAP essentially; pulled of mask overnight and quickly desaturated; FiO2 up to 100% and she is with severely increased work of breathing on BIPAP now Objective Vital Signs - 12hr 02/05/19 02/05/19 02/06/19 23:50 23:52 00:00 Temperature 98.8 F Pulse Rate 106 H 108 H 106 H Pulse Rate [ 105 H Bilateral] Pulse Rate [ 98 H From Monitor] Respiratory 30 H 28 H 29 H Rate Respiratory 28 H Rate [Bilateral ] Blood Pressure 121/80 121/80 122/77 O2 Sat by Pulse 92 93 99 Oximetry 02/06/19 02/06/19 02/06/19 00:10 00:20 00:30 Temperature Pulse Rate 104 H 101 H 104 H Pulse Rate [ Bilateral] Pulse Rate [ From Monitor] Respiratory 30 H 22 27 H Rate Respiratory Rate [Bilateral ] Blood Pressure 122/77 120/69 116/74 O2 Sat by Pulse 96 94 93 Oximetry 02/06/19 02/06/19 02/06/19 00:40 00:50 01:00 Temperature Pulse Rate 107 H 107 H 106 H Pulse Rate [ Bilateral] Pulse Rate [ From Monitor] Respiratory 30 H 32 H 32 H Rate Respiratory Rate [Bilateral ] Blood Pressure 116/74 132/79 118/82 O2 Sat by Pulse 92 91 91 Oximetry 02/06/19 02/06/19 02/06/19 01:10 01:20 01:30 Temperature Pulse Rate 109 H 107 H 107 H Pulse Rate [ Bilateral] Pulse Rate [ From Monitor] Respiratory 32 H 30 H 28 H Rate Respiratory Rate [Bilateral ] Blood Pressure 116/74 136/79 139/89 O2 Sat by Pulse 89 90 88 Oximetry 02/06/19 02/06/19 02/06/19 01:37 01:40 01:47 Temperature Pulse Rate 106 H Pulse Rate [ 108 H 112 H Bilateral] Pulse Rate [ From Monitor] Respiratory 30 H Rate Respiratory 32 H 28 H Rate [Bilateral ] Blood Pressure 139/89 O2 Sat by Pulse 89 Oximetry 02/06/19 02/06/19 02/06/19 01:50 02:00 02:10 Temperature Pulse Rate 109 H 107 H 108 H Pulse Rate [ Bilateral] Pulse Rate [ From Monitor] Respiratory 30 H 31 H 29 H Rate Respiratory Rate [Bilateral ] Blood Pressure 129/84 129/84 139/89 O2 Sat by Pulse 91 88 92 Oximetry 0502/06/19 02/06/19 02:20 02:30 02:40 Temperature Pulse Rate 106 H 107 H 104 H Pulse Rate [ Bilateral] Pulse Rate [ From Monitor] Respiratory 33 H 30 H 32 H Rate Respiratory Rate [Bilateral ] Blood Pressure 139/85 134/91 134/91 O2 Sat by Pulse 90 94 95 Oximetry 02/06/19 02/06/19 02/06/19 02:50 03:00 03:10 Temperature Pulse Rate 103 H 106 H 99 H Pulse Rate [ Bilateral] Pulse Rate [ From Monitor] Respiratory 31 H 28 H 24 Rate Respiratory Rate [Bilateral ] Blood Pressure 141/87 130/84 130/84 O2 Sat by Pulse 94 89 95 Oximetry 02/06/19 02/06/19 02/06/19 03:20 03:30 03:40 Temperature Pulse Rate 93 H 92 H 95 H Pulse Rate [ Bilateral] Pulse Rate [ From Monitor] Respiratory 20 23 22 Rate Respiratory Rate [Bilateral ] Blood Pressure 122/75 119/74 119/74 O2 Sat by Pulse 98 98 98 Oximetry 02/06/19 02/06/19 02/06/19 03:50 04:00 04:10 Temperature 98.2 F Pulse Rate 99 H 104 H 107 H Pulse Rate [ Bilateral] Pulse Rate [ 108 H From Monitor] Respiratory 21 34 H 30 H Rate Respiratory Rate [Bilateral ] Blood Pressure 132/79 134/86 134/86 O2 Sat by Pulse 97 96 95 Oximetry 02/06/19 02/06/19 02/06/19 04:20 04:25 04:30 Temperature Pulse Rate 105 H 104 H 109 H Pulse Rate [ Bilateral] Pulse Rate [ From Monitor] Respiratory 33 H 28 H 35 H Rate Respiratory Rate [Bilateral ] Blood Pressure 140/88 140/88 131/87 O2 Sat by Pulse 95 96 94 Oximetry 02/06/19 02/06/19 02/06/19 04:40 04:50 05:00 Temperature Pulse Rate 124 H 109 H 119 H Pulse Rate [ Bilateral] Pulse Rate [ From Monitor] Respiratory 33 H 31 H 28 H Rate Respiratory Rate [Bilateral ] Blood Pressure 131/87 143/91 149/85 O2 Sat by Pulse 87 90 89 Oximetry 02/06/19 02/06/19 02/06/19 05:10 05:20 05:30 Temperature Pulse Rate 111 H 132 H 118 H Pulse Rate [ Bilateral] Pulse Rate [ From Monitor] Respiratory 28 H 37 H 34 H Rate Respiratory Rate [Bilateral ] Blood Pressure 149/85 148/98 141/90 O2 Sat by Pulse 91 85 89 Oximetry 02/06/19 02/06/19 02/06/19 05:40 05:50 06:00 Temperature Pulse Rate 124 H 123 H 123 H Pulse Rate [ Bilateral] Pulse Rate [ From Monitor] Respiratory 36 H 36 H 34 H Rate Respiratory Rate [Bilateral ] Blood Pressure 141/90 148/98 141/90 O2 Sat by Pulse 88 87 86 Oximetry 02/06/19 02/06/19 02/06/19 06:10 06:20 06:30 Temperature Pulse Rate 124 H 123 H 121 H Pulse Rate [ Bilateral] Pulse Rate [ From Monitor] Respiratory 34 H 34 H 36 H Rate Respiratory Rate [Bilateral ] Blood Pressure 141/90 142/90 137/78 O2 Sat by Pulse 86 87 88 Oximetry 02/06/19 02/06/19 02/06/19 06:40 06:50 07:00 Temperature Pulse Rate 118 H 118 H 118 H Pulse Rate [ Bilateral] Pulse Rate [ From Monitor] Respiratory 36 H 36 H 34 H Rate Respiratory Rate [Bilateral ] Blood Pressure 137/78 132/83 135/83 O2 Sat by Pulse 89 90 90 Oximetry 02/06/19 02/06/19 02/06/19 07:10 07:20 07:30 Temperature Pulse Rate 120 H 118 H 119 H Pulse Rate [ Bilateral] Pulse Rate [ From Monitor] Respiratory 37 H 36 H 38 H Rate Respiratory Rate [Bilateral ] Blood Pressure 135/83 137/78 135/88 O2 Sat by Pulse 91 91 90 Oximetry 02/06/19 02/06/19 02/06/19 07:40 07:50 08:00 Temperature Pulse Rate 112 H 119 H 116 H Pulse Rate [ 113 H Bilateral] Pulse Rate [ 116 H From Monitor] Respiratory 37 H 36 H 36 H Rate Respiratory 38 H Rate [Bilateral ] Blood Pressure 135/88 131/83 134/81 O2 Sat by Pulse 92 91 92 Oximetry 02/06/19 02/06/19 02/06/19 08:10 08:20 08:30 Temperature Pulse Rate 113 H 111 H 101 H Pulse Rate [ 111 H Bilateral] Pulse Rate [ From Monitor] Respiratory 32 H 35 H 23 Rate Respiratory 32 H Rate [Bilateral ] Blood Pressure 134/81 130/82 116/66 O2 Sat by Pulse 93 97 99 Oximetry 02/06/19 02/06/19 02/06/19 08:40 08:50 11:09 Temperature Pulse Rate 99 H 104 H 105 H Pulse Rate [ Bilateral] Pulse Rate [ From Monitor] Respiratory 24 24 Rate Respiratory Rate [Bilateral ] Blood Pressure 116/66 114/65 143/81 O2 Sat by Pulse 100 100 97 Oximetry Constitutional: appears uncomfortable, other (elderly looking petite CF normocephalic with increased work of breathing) Eyes: non-icteric ENT: oropharynx dry Neck: supple, no lymphadenopathy, JVD Effort: very labored Ascultation: Bilateral: diminished breath sounds, rales Percussion: Bilateral: not dull Cardiovascular: irregular rhythm Gastrointestinal: normoactive bowel sounds, soft, non-tender, non-distended Integumentary: normal Extremities: no cyanosis, pink and warm, pulses normal, no ischemia or petechiae Neurologic: non-focal exam (grossly), pupils equal and round, CN II-XII normal Psychiatric: anxious CBC and BMP: 02/11/19 10:26 02/11/19 10:26 ABG, PT/INR, D-dimer: ABG POC ABG pH 7.391 (7.35-7.45) 02/06/19 01:46 POC ABG pCO2 34.4 (35-45) L 02/06/19 01:46 POC ABG pO2 56 (80-105) L 02/06/19 01:46 POC ABG HCO3 20.9 (22-26 mml/L) 02/06/19 01:46 POC ABG Total CO2 22 (23-27mmol/L) 02/06/19 01:46 POC ABG O2 Sat 89 02/06/19 01:46 PT/INR, D-dimer PT 19.3 Sec. (12.2-14.9) H 02/03/19 19:24 INR 1.52 (0.87-1.13) H 02/03/19 19:24 Abnormal lab findings: Abnormal Labs 02/03/19 02/03/19 02/03/19 02:57 18:06 18:06 WBC RBC 0.88 L Hgb 1.9 L* Hct 7.1 L* MCH 22 L MCHC 27 L RDW 23.3 H Plt Count 489 H Scurry % (Auto) 10.1 H Lymph # 1.1 L Seg Neutrophils % 71.2 H Seg Neuts % (Manual) Lymphocytes % (Manual) Seg Neutrophils # Man Lymphocytes # (Manual) PT INR POC ABG pH POC ABG pCO2 POC ABG pO2 Sodium Potassium Chloride Carbon Dioxide BUN Glucose Lactic Acid Calcium Troponin T C-Reactive Protein NT-Pro-B Natriuret Pep 9160 H Total Protein Albumin Triglycerides HDL Cholesterol Urine WBC (Auto) 7.0 H Crossmatch 02/03/19 02/03/19 02/03/19 18:06 18:08 18:08 WBC RBC Hgb Hct MCH MCHC RDW Plt Count Scurry % (Auto) Lymph # Seg Neutrophils % Seg Neuts % (Manual) Lymphocytes % (Manual) Seg Neutrophils # Man Lymphocytes # (Manual) PT INR POC ABG pH POC ABG pCO2 POC ABG pO2 Sodium Potassium 3.3 L Chloride Carbon Dioxide 17 L BUN Glucose Lactic Acid 9.90 H* Calcium 7.9 L Troponin T 0.134 H* C-Reactive Protein NT-Pro-B Natriuret Pep Total Protein 5.1 L Albumin 2.8 L Triglycerides 164 H HDL Cholesterol 31 L Urine WBC (Auto) Crossmatch See Detail 02/03/19 02/03/19 02/03/19 19:24 19:24 19:24 WBC RBC Hgb Hct MCH MCHC RDW Plt Count [place]urry % (Auto) Lymph # Seg Neutrophils % Seg Neuts % (Manual) Lymphocytes % (Manual) Seg Neutrophils # Man Lymphocytes # (Manual) PT 19.3 H INR 1.52 H POC ABG pH POC ABG pCO2 POC ABG pO2 Sodium Potassium Chloride Carbon Dioxide BUN Glucose Lactic Acid 6.30 H* Calcium Troponin T 0.139 H* C-Reactive Protein NT-Pro-B Natriuret Pep Total Protein Albumin Triglycerides HDL Cholesterol Urine WBC (Auto) Crossmatch 02/03/19 02/03/19 02/04/19 20:30 23:36 01:18 WBC RBC Hgb Hct MCH MCHC RDW Plt Count [place] % (Auto) Lymph # Seg Neutrophils % Seg Neuts % (Manual) Lymphocytes % (Manual) Seg Neutrophils # Man Lymphocytes # (Manual) PT INR POC ABG pH 7.515 H POC ABG pCO2 POC ABG pO2 121 H Sodium Potassium Chloride Carbon Dioxide BUN Glucose Lactic Acid 6.50 H* 5.70 H* Calcium Troponin T C-Reactive Protein NT-Pro-B Natriuret Pep Total Protein Albumin Triglycerides HDL Cholesterol Urine WBC (Auto) Crossmatch 02/04/19 02/04/19 02/04/19 04:35 04:35 04:35 WBC 17.5 H RBC Hgb Hct MCH 27 L MCHC RDW 15.9 H Plt Count [place] % (Auto) Lymph # Seg Neutrophils % Seg Neuts % (Manual) 96.0 H Lymphocytes % (Manual) 1.0 L Seg Neutrophils # Man 16.8 H Lymphocytes # (Manual) 0.2 L PT INR POC ABG pH POC ABG pCO2 POC ABG pO2 Sodium 147 H Potassium 3.2 L Chloride Carbon Dioxide 21 L BUN Glucose 170 H Lactic Acid 3.60 H* Calcium 7.9 L Troponin T C-Reactive Protein NT-Pro-B Natriuret Pep Total Protein Albumin Triglycerides HDL Cholesterol Urine WBC (Auto) Crossmatch 02/04/19 02/04/19 02/04/19 10:59 17:07 17:07 WBC RBC Hgb Hct MCH MCHC RDW Plt Count [place]urry % (Auto) Lymph # Seg Neutrophils % Seg Neuts % (Manual) Lymphocytes % (Manual) Seg Neutrophils # Man Lymphocytes # (Manual) PT INR POC ABG pH POC ABG pCO2 POC ABG pO2 Sodium Potassium 3.1 L Chloride Carbon Dioxide BUN Glucose Lactic Acid 2.30 H* Calcium Troponin T C-Reactive Protein 9.30 H NT-Pro-B Natriuret Pep Total Protein Albumin Triglycerides HDL Cholesterol Urine WBC (Auto) Crossmatch 02/04/19 02/04/19 02/05/19 17:15 21:04 00:05 WBC RBC Hgb Hct MCH MCHC RDW Plt Count [place]urry % (Auto) Lymph # Seg Neutrophils % Seg Neuts % (Manual) Lymphocytes % (Manual) Seg Neutrophils # Man Lymphocytes # (Manual) PT INR POC ABG pH 7.310 L POC ABG pCO2 POC ABG pO2 68 L Sodium Potassium Chloride Carbon Dioxide BUN Glucose Lactic Acid 2.40 H* 2.70 H* Calcium Troponin T C-Reactive Protein NT-Pro-B Natriuret Pep Total Protein Albumin Triglycerides HDL Cholesterol Urine WBC (Auto) Crossmatch 02/05/19 02/05/19 02/05/19 04:41 04:41 12:54 WBC 15.1 H RBC Hgb Hct MCH MCHC RDW 16.6 H Plt Count [place] % (Auto) Lymph # Seg Neutrophils % Seg Neuts % (Manual) 90.0 H Lymphocytes % (Manual) 2.0 L Seg Neutrophils # Man 13.6 H Lymphocytes # (Manual) 0.3 L PT INR POC ABG pH POC ABG pCO2 POC ABG pO2 74 L Sodium 147 H Potassium Chloride 114.1 H Carbon Dioxide 20 L BUN 19 H Glucose 192 H Lactic Acid Calcium 7.4 L Troponin T C-Reactive Protein NT-Pro-B Natriuret Pep Total Protein Albumin Triglycerides HDL Cholesterol Urine WBC (Auto) Crossmatch 02/06/19 01:46 WBC RBC Hgb Hct MCH MCHC RDW Plt Count [place] % (Auto) Lymph # Seg Neutrophils % Seg Neuts % (Manual) Lymphocytes % (Manual) Seg Neutrophils # Man Lymphocytes # (Manual) PT INR POC ABG pH POC ABG pCO2 34.4 L POC ABG pO2 56 L Sodium Potassium Chloride Carbon Dioxide BUN Glucose Lactic Acid Calcium Troponin T C-Reactive Protein NT-Pro-B Natriuret Pep Total Protein Albumin Triglycerides HDL Cholesterol Urine WBC (Auto) Crossmatch Chest x-ray: image reviewed Allied health notes reviewed: nursing
[2019-02-06 11:54] LABS: Hematocrit 35.1 % (30.3-42.9); Hemoglobin 11.6 gm/dl (10.1-14.3); Mean Corpuscular HGB Conc 33 % (30-34); Mean Corpuscular Volume 84 fl (79-97); Platelet Count 175 K/mm3 (140-440); Red Blood Count 4.18 M/mm3 (3.65-5.03)
[2019-02-06 12:25] LABS: BUN/Creatinine Ratio 23; Blood Urea Nitrogen 16 mg/dL (7-17); Calcium 8.1 mg/dL (8.4-10.2); Hemolysis Index 6
--- NOTE | 2019-02-06 12:44 | Progress Note ---
Assessment and Plan 1. Acute encephalopathy, improving 2. Acute hypoxic respiratory failure with Severe respiratory alkalosis - s/p intubation today 3. Acute GI bleed, possible PUD 4. Acute blood loss anemia (due to #2) 5. Hypokalemia, cont replete 6. CHF with acute exacerbation ( EF 20-25%) 7. SIRS, source of infection unclear 8. Severe protein calorie malnutrition 9. Hypernatremia, low volume hypotonic fluid Plan: Monitor at ICU s/p BiPAP now intubated, monitor with serial XRY and abg, cont nebs Consulted GI for acute GI bleed, s/p 5 units of packed RBCs monitor h/h, place on iv lasix Avoid NSAIDs, follow Cx, iv abx, BMP in the a.m. replete electrolytes, consulted dietary for TF No DVT prophylaxis (GI bleed) The high probability of a clinically significant, sudden or life threatening deterioration of the [multiple] system(s) required my full and direct attention, intervention and personal management. The aggregate critical care time was [35] minutes. This time is in addition to time spent performing reported procedures but includes the following: [x] Data Review and interpretation [x] Patient assessment and monitoring of vital signs [x] Documentation [x] Medication orders and management Brief history: Patient is a 68-year-old female brought by with acute respiratory distress in poor condition, she is being treated for GI bleed, acute respiratory failure. placed on bipap on admission but symptom continue to worse, s/p intubation today. Subjective Date of service: 02/06/19 Principal diagnosis: GI bleed Interval history: Patient seen and examined Intubated this morning at bedside, updated discussed with GI and CC attending Objective - Exam Narrative Exam: General appearance: Present: moderate distress, intubated - EENT ENT: hearing intact - Neck Neck: Present: normal ROM - Respiratory Respiratory effort: normal Respiratory: bilateral: rhonchi - Cardiovascular Rhythm: regular Heart Sounds: Present: S1 & S2 - Extremities Extremities: no ischemia Peripheral Pulses: within normal limits - Abdominal General gastrointestinal: Present: non-tender, non-distended - Rectal Rectal Exam: deferred - Integumentary Integumentary: Present: warm, dry - Musculoskeletal Musculoskeletal: generalized weakness - Psychiatric Psychiatric: sedated - Neurologic Neurologic: moves all extremities - Constitutional Vitals: Vital Signs - 12hr 02/06/19 02/06/19 02/06/19 00:50 01:00 01:10 Temperature Pulse Rate 107 H 106 H 109 H Pulse Rate [ Bilateral] Pulse Rate [ From Monitor] Respiratory 32 H 32 H 32 H Rate Respiratory Rate [Bilateral ] Blood Pressure 132/79 118/82 116/74 O2 Sat by Pulse 91 91 89 Oximetry 02/06/19 02/06/19 02/06/19 01:20 01:30 01:37 Temperature Pulse Rate 107 H 107 H Pulse Rate [ 108 H Bilateral] Pulse Rate [ From Monitor] Respiratory 30 H 28 H Rate Respiratory 32 H Rate [Bilateral ] Blood Pressure 136/79 139/89 O2 Sat by Pulse 90 88 Oximetry 02/06/19 02/06/19 02/06/19 01:40 01:47 01:50 Temperature Pulse Rate 106 H 109 H Pulse Rate [ 112 H Bilateral] Pulse Rate [ From Monitor] Respiratory 30 H 30 H Rate Respiratory 28 H Rate [Bilateral ] Blood Pressure 139/89 129/84 O2 Sat by Pulse 89 91 Oximetry 02/06/19 02/06/19 02/06/19 02:00 02:10 02:20 Temperature Pulse Rate 107 H 108 H 106 H Pulse Rate [ Bilateral] Pulse Rate [ From Monitor] Respiratory 31 H 29 H 33 H Rate Respiratory Rate [Bilateral ] Blood Pressure 129/84 139/89 139/85 O2 Sat by Pulse 88 92 90 Oximetry 02/06/19 02/06/19 02/06/19 02:30 02:40 02:50 Temperature Pulse Rate 107 H 104 H 103 H Pulse Rate [ Bilateral] Pulse Rate [ From Monitor] Respiratory 30 H 32 H 31 H Rate Respiratory Rate [Bilateral ] Blood Pressure 134/91 134/91 141/87 O2 Sat by Pulse 94 95 94 Oximetry 02/06/19 02/06/19 02/06/19 03:00 03:10 03:20 Temperature Pulse Rate 106 H 99 H 93 H Pulse Rate [ Bilateral] Pulse Rate [ From Monitor] Respiratory 28 H 24 20 Rate Respiratory Rate [Bilateral ] Blood Pressure 130/84 130/84 122/75 O2 Sat by Pulse 89 95 98 Oximetry 02/06/19 02/06/19 02/06/19 03:30 03:40 03:50 Temperature Pulse Rate 92 H 95 H 99 H Pulse Rate [ Bilateral] Pulse Rate [ From Monitor] Respiratory 23 22 21 Rate Respiratory Rate [Bilateral ] Blood Pressure 119/74 119/74 132/79 O2 Sat by Pulse 98 98 97 Oximetry 02/06/19 02/06/19 02/06/19 04:00 04:10 04:20 Temperature 98.2 F Pulse Rate 104 H 107 H 105 H Pulse Rate [ Bilateral] Pulse Rate [ 108 H From Monitor] Respiratory 34 H 30 H 33 H Rate Respiratory Rate [Bilateral ] Blood Pressure 134/86 134/86 140/88 O2 Sat by Pulse 96 95 95 Oximetry 02/06/19 02/06/19 02/06/19 04:25 04:30 04:40 Temperature Pulse Rate 104 H 109 H 124 H Pulse Rate [ Bilateral] Pulse Rate [ From Monitor] Respiratory 28 H 35 H 33 H Rate Respiratory Rate [Bilateral ] Blood Pressure 140/88 131/87 131/87 O2 Sat by Pulse 96 94 87 Oximetry 02/06/19 02/06/19 02/06/19 04:50 05:00 05:10 Temperature Pulse Rate 109 H 119 H 111 H Pulse Rate [ Bilateral] Pulse Rate [ From Monitor] Respiratory 31 H 28 H 28 H Rate Respiratory Rate [Bilateral ] Blood Pressure 143/91 149/85 149/85 O2 Sat by Pulse 90 89 91 Oximetry 02/06/19 02/06/19 02/06/19 05:20 05:30 05:40 Temperature Pulse Rate 132 H 118 H 124 H Pulse Rate [ Bilateral] Pulse Rate [ From Monitor] Respiratory 37 H 34 H 36 H Rate Respiratory Rate [Bilateral ] Blood Pressure 148/98 141/90 141/90 O2 Sat by Pulse 85 89 88 Oximetry 02/06/19 02/06/19 02/06/19 05:50 06:00 06:10 Temperature Pulse Rate 123 H 123 H 124 H Pulse Rate [ Bilateral] Pulse Rate [ From Monitor] Respiratory 36 H 34 H 34 H Rate Respiratory Rate [Bilateral ] Blood Pressure 148/98 141/90 141/90 O2 Sat by Pulse 87 86 86 Oximetry 02/06/19 02/06/19 02/06/19 06:20 06:30 06:40 Temperature Pulse Rate 123 H 121 H 118 H Pulse Rate [ Bilateral] Pulse Rate [ From Monitor] Respiratory 34 H 36 H 36 H Rate Respiratory Rate [Bilateral ] Blood Pressure 142/90 137/78 137/78 O2 Sat by Pulse 87 88 89 Oximetry 02/06/19 02/06/19 02/06/19 06:50 07:00 07:10 Temperature Pulse Rate 118 H 118 H 120 H Pulse Rate [ Bilateral] Pulse Rate [ From Monitor] Respiratory 36 H 34 H 37 H Rate Respiratory Rate [Bilateral ] Blood Pressure 132/83 135/83 135/83 O2 Sat by Pulse 90 90 91 Oximetry 02/06/19 02/06/19 02/06/19 07:20 07:30 07:40 Temperature Pulse Rate 118 H 119 H 112 H Pulse Rate [ Bilateral] Pulse Rate [ From Monitor] Respiratory 36 H 38 H 37 H Rate Respiratory Rate [Bilateral ] Blood Pressure 137/78 135/88 135/88 O2 Sat by Pulse 91 90 92 Oximetry 02/06/19 02/06/19 02/06/19 07:50 08:00 08:10 Temperature 98 F Pulse Rate 119 H 116 H 113 H Pulse Rate [ 113 H Bilateral] Pulse Rate [ 116 H From Monitor] Respiratory 36 H 36 H 32 H Rate Respiratory 38 H Rate [Bilateral ] Blood Pressure 131/83 134/81 134/81 O2 Sat by Pulse 91 92 93 Oximetry 02/06/19 02/06/19 02/06/19 08:20 08:30 08:40 Temperature Pulse Rate 111 H 101 H 99 H Pulse Rate [ 111 H Bilateral] Pulse Rate [ From Monitor] Respiratory 35 H 23 24 Rate Respiratory 32 H Rate [Bilateral ] Blood Pressure 130/82 116/66 116/66 O2 Sat by Pulse 97 99 100 Oximetry 02/06/19 02/06/19 02/06/19 08:50 11:09 12:00 Temperature 97.3 F L Pulse Rate 104 H 105 H Pulse Rate [ Bilateral] Pulse Rate [ From Monitor] Respiratory 24 Rate Respiratory Rate [Bilateral ] Blood Pressure 114/65 143/81 O2 Sat by Pulse 100 97 Oximetry - Labs CBC & Chem 7: 02/06/19 11:42 02/06/19 11:42 Labs: Abnormal lab results 02/03/19 02/05/19 02/06/19 Range/Units 18:06 12:54 01:46 WBC (4.5-11.0) K/mm3 RDW (13.2-15.2) % POC ABG pCO2 34.4 L (35-45) POC ABG pO2 74 L 56 L (80-105) Sodium (137-145) mmol/L Chloride (98-107) mmol/L Glucose (65-100) mg/dL Calcium (8.4-10.2) mg/dL Crossmatch See Detail 02/06/19 02/06/19 Range/Units 11:42 11:42 WBC 21.1 H (4.5-11.0) K/mm3 RDW 17.0 H (13.2-15.2) % POC ABG pCO2 (35-45) POC ABG pO2 (80-105) Sodium 151 H (137-145) mmol/L Chloride 112.1 H (98-107) mmol/L Glucose 187 H (65-100) mg/dL Calcium 8.1 L (8.4-10.2) mg/dL Crossmatch
[2019-02-06] MEDS ORDERED: PANCREAZE DR 10,500 UNIT FEEDTUBE PRN ×2 (13:00→15:53)
[2019-02-06] MEDS ORDERED: SIMPLE SYRUP FEEDTUBE PRN ×4 (13:00→15:53)
[2019-02-06] MEDS ORDERED: SODIUM BICARBONATE FEEDTUBE PRN ×2 (13:00→15:53)
--- NOTE | 2019-02-06 14:05 | XRay Report ---
PROCEDURE: XR ABDOMEN 1V AP TECHNIQUE: Abdominal radiograph, single view. HISTORY: Dobbhoff placement. COMPARISONS: None currently available. FINDINGS: Dobbhoff tube tip is within the proximal body of the stomach. Scattered opacities in both lungs is partially imaged. Bowel gas appearance is nonspecific and non-distended. There is no pneumoperitoneum. There is no air fluid level. There is no obstructive pattern. [id number] stool. No suspicious calcifications overlying the renal shadows. Degenerative changes in the spine. Partially imaged right femoral central line tip is in the right common iliac. IMPRESSION: * Nonspecific nonobstructive bowel gas pattern. * Dobbhoff tube tip is within the proximal body of the stomach. This document is electronically signed by Juan R Huffman MD., Feb 06 2019 02:03:42 PM ET
--- NOTE | 2019-02-06 14:07 | XRay Report ---
PROCEDURE: XR CHEST 1V AP TECHNIQUE: Chest radiograph, AP portable supine view. HISTORY: intubation COMPARISONS: Chest x-ray February 06, 2019. FINDINGS: Cardiac silhouette is within normal limits. Patchy bilateral air space pulmonary infiltrates are unchanged compared to prior. No pneumothorax. No effusion. There are no suspicious osseous lesions. Endotracheal tube tip is 4.3 cm with joanne. Satisfactory. Dobbhoff tube tip is in the proximal body of the stomach. IMPRESSION: * Stable exam. This document is electronically signed by Juan R Huffman MD., Feb 06 2019 02:05:08 PM ET
--- NOTE | 2019-02-06 14:28 | XRay Report ---
PROCEDURE: XR CHEST 1V AP TECHNIQUE: Chest radiograph single view. HISTORY: Sepsis COMPARISONS: Chest x-ray February 03, 2019 . FINDINGS: Heart: Mild cardiomegaly stable. Mediastinum/Vessels: Trachea midline. Atherosclerotic calcification in aorta. Lungs/Pleural space: Extensive bilateral airspace disease. Airspace disease increased. No pneumothor ax. No sizable effusion. Bony thorax: No acute osseous abnormality. Life support devices: None. IMPRESSION: Extensive bilateral airspace disease now present.. This document is electronically signed by Rashid Cullen MD., Feb 06 2019 02:26:05 PM ET
--- NOTE | 2019-02-06 17:07 | Consultation ---
History of Present Illness - Reason for Consult Consult date: 02/06/19 hypernatremia - History of Present Illness The Patient is a 68 YO female with history significant for CHF, COPD and Tobacco use who was brought to the ER by EMS on 02/03/19 after she sustained a fall at home, AMS and respiratory distress. Patient was not able to provide any history and her at the bedside is a very poor historian. EMS found her in severe respiratory distress, laying on the floor and cover in her feces. Patient had been had been taking a lot of "goody powder" for pain. On arrival to the ER patient was lethargic, responded to name, blood pressure was 80/54 and respiration was 40. Her initial H&H was 1.9/7.1. Patient was admitted with acute GI bleed, acute blood loss anemia and COPD exacerbation. Patient is currently intubated and in the vent. Sodium is 151 and Nephrology was consulted for further evaluation. Past History Past Medical History: COPD, heart failure, hypertension Past Surgical History: No surgical history Social history: , lives with family (spouse) Family history: no significant family history Medications and Allergies Allergies Allergy/AdvReac Type Severity Reaction Status Date / Time No Known Allergies Allergy Unverified 02/03/19 18:28 Home Medications Medication Instructions Recorded Confirmed Last Taken Type No Known Home Medications [No 02/07/19 02/07/19 Unknown History Reported Home Medications] Active Meds: Active Medications Albuterol/Ipratropium (Duoneb *Not For Prn Use*) 1 ampul [facility] Q6HRT [facility] Last Admin: 02/06/19 15:48 Dose: 1 ampul Documented by: Lipase/Protease/Amylase (Juan Smith 10,500 Unit) 1 each FEEDTUBE PRN PRN PRN Reason: For Clogged Feeding Tube Arformoterol Tartrate (Brovana Nebu) 15 mcg [facility] Q12HRT [facility] Last Admin: 02/06/19 08:17 Dose: Not Given Documented by: Budesonide (Pulmicort) 0.5 mg IH Q12HRT [facility] Last Admin: 02/06/19 08:16 Dose: 0.5 mg Documented by: Fentanyl (Sublimaze) 50 mcg IV Q10MIN PRN PRN Reason: ANALGESIA Furosemide (Lasix) 40 mg IV 0600,1800 [facility] Last Admin: 02/06/19 06:04 Dose: 40 mg Documented by: Hydrophilic Ointment (Vaseline Lip Therapy) 1 applic TP Q2HR PRN PRN Reason: Dry Lips Piperacillin Sod/Tazobactam Sod (Zosyn/Ns 3.375gm/50ml) 3.375 gm in 50 mls @ 100 mls/hr IV Q8HR [facility] Stop: 02/08/19 23:59 Last Admin: 02/06/19 14:02 Dose: 100 mls/hr Documented by: Potassium Chloride/Dextrose/Sod Cl (D5w/0.45% Nacl/Kcl 30 Meq) 30 meq in 1,000 mls @ 30 mls/hr IV DIRECT [facility] Last Admin: 02/06/19 02:37 Dose: 75 mls/hr Documented by: Fentanyl Citrate (Fentanyl Drip Premix) 2,000 mcg in 100 mls @ 2.075 mls/hr IV TITR [facility]; Protocol Last Titration: 02/06/19 13:45 Dose: 1 mcg/kg/hr, 2.075 mls/hr Documented by: Methylprednisolone Sodium Succinate (Solu-Medrol) 40 mg IV Q12HR [facility] Last Admin: 02/06/19 09:37 Dose: 40 mg Documented by: Morphine Sulfate (Morphine) 2 mg IV Q4H PRN PRN Reason: Pain, Moderate (4-6) Last Admin: 02/06/19 02:35 Dose: 2 mg Documented by: Multi-Ingred Cream/Lotion/Oil/Oint (Artificial Tears Ophth Oint) 1 applic OU Q4HR PRN PRN Reason: Dry Eye(s) Ondansetron HCl (Zofran) 4 mg IV Q8H PRN PRN Reason: Nausea And Vomiting Pantoprazole Sodium (Protonix) 40 mg IV QDAY [facility] Last Admin: 02/06/19 09:37 Dose: 40 mg Documented by: Simple Syrup (Simple Syrup) 15 ml FEEDTUBE PRN PRN PRN Reason: Hypoglycemia Simple Syrup (Simple Syrup) 30 ml FEEDTUBE PRN PRN PRN Reason: Hypoglycemia Sodium Bicarbonate (Sodium Bicarbonate) 325 mg FEEDTUBE PRN PRN PRN Reason: For Clogged Feeding Tube Sodium Chloride (Sodium Chloride Flush Syringe 10 Ml) 10 ml IV BID [facility] Last Admin: 02/06/19 09:37 Dose: 10 ml Documented by: Sodium Chloride (Sodium Chloride Flush Syringe 10 Ml) 10 ml IV PRN PRN PRN Reason: LINE FLUSH Review of Systems ROS unobtainable: due to mental status Exam - Vital Signs Vital signs: Vital Signs Pulse 92 H 02/03/19 17:42 - General Appearance General appearance: well-developed, appears stated age, sedated on ventilator, intubated, other (emaciated) EENT: ATNC, PERRL Neck: Present: neck supple, trachea midline Respiratory: Clear to Ascultation Heart: regular, S1S2, no murmurs Gastrointestinal: Present: normoactive bowel sounds. Absent: tenderness, distended Integumentary: no rash, warm and dry Neurologic: obtunded Musculoskeletal: Present: other (no edema) Results - Lab Results 02/07/19 05:27 02/07/19 05:27 Most recent lab results Calcium 8.1 mg/dL (8.4-10.2) L 02/06/19 11:42 Magnesium 2.20 mg/dL (1.7-2.3) 02/04/19 Unknown Assessment and Plan 1. Hypernatremia: High sodium is likely from diuretics. Change IV fluids to D5W. Monitor Sodium level. 2. FEN: Volume overload, on IV Lasix. 3. Respiratory failure: COPD exacerbation. On vent. 4. Suspected GI bleed: Followed by GI. 5. Anemia: Improved.
[2019-02-06] MEDS: KCL 40 MEQ in D5W 1,000 ML IV SCH (19:51)
[2019-02-07] MEDS: DUONEB *Not for PRN Use IH SCH ×4 (02:03→19:49)
--- NOTE | 2019-02-07 03:01 | XRay Report ---
PROCEDURE: XR CHEST 1V AP TECHNIQUE: Chest radiograph single view. HISTORY: follow up respiratory failure COMPARISONS: February 06, 2019 . FINDINGS: Heart: Normal. Mediastinum/Vessels: Slight vascular congestion. Lungs/Pleural space: Scattered patchy infiltrates identified throughout both lungs are unchanged. Bony thorax: No acute osseous abnormality. Life support devices: The endotracheal tube ends 3 cm above the joanne. Nasogastric tube ends below t he hemidiaphragms. IMPRESSION: Scattered patchy infiltrates identified throughout both lungs are not changed. Slight va scular congestion. The endotracheal tube and nasogastric tube are properly positioned. This document is electronically signed by Helen Adams DO., Feb 07 2019 02:59:26 AM ET
[2019-02-07] MEDS: ZOSYN/NS 3.375GM/50ML 3.375 GM/50 ML BAG IV SCH ×3 (05:53→21:23)
[2019-02-07] MEDS: LASIX IV SCH ×2 (05:54→18:42)
[2019-02-07 06:09] LABS: Hematocrit 33.8 % (30.3-42.9); Hemoglobin 11.1 gm/dl (10.1-14.3); Mean Corpuscular HGB Conc 33 % (30-34); Mean Corpuscular Volume 84 fl (79-97); Platelet Count 146 K/mm3 (140-440); Red Blood Count 4.02 M/mm3 (3.65-5.03); Red Cell Distribution Width 17.6 % (13.2-15.2)
[2019-02-07 06:25] LABS: BUN/Creatinine Ratio 27; Blood Urea Nitrogen 16 mg/dL (7-17); Calcium 8.3 mg/dL (8.4-10.2); Hemolysis Index 4
[2019-02-07] MEDS: BROVANA NEBU IH SCH ×2 (07:57→19:49)
[2019-02-07] MEDS: PULMICORT IH SCH ×2 (07:57→19:49)
--- NOTE | 2019-02-07 09:09 | Progress Note ---
Assessment and Plan Severe Sepsis with Shock Acute hypoxemic respiratory failure, on MVS Symptomatic anemia with positive stool guaiac. Acute chronic obstructive pulmonary disease exacerbation. Possible acute gastrointestinal bleed. Acute congestive heart failure exacerbation. Hypokalemia. Elevated serum troponin. Adult failure to thrive. -Continue full MVS, get follow up ABG. -Adjust minute ventilation for better acid-base -Wean supplemental oxygen to keep O2 sats 88-90% -Lung protective strategies -Oxygen restrictive strategies -Daily ABGs/CXR -Follow tracheal aspirate cultures -VAP bundle addressed -Diuresis as tolerated by hemodynamics. Monitor renal indices closely -Avoid nephrotoxic agents, adjust all medications for CrCL -Strict intake and output monitoring -Daily SAT's & SBT's, once gas-exchange is adequate, and on minimal ventilatory support -Sedation target for RASS 0 to -1 -Stress ulcer prophylaxis -VTE prophylaxis -Nutrition consult for tube feedings -Aspiration precautions -Accuchecks with glycemic control. Target glucose of 140-180 mg/dL -Bronchodilators with pulmonary hygiene per RT -Maintenance of sleep -wake cycle -Mobility as tolerated by hemodynamics -Influenza and pneumonia vaccination per protocol ..care plan discussed at length with RN/RT at the bedside -updated her who was at the bedside PROGNOSIS: GUARDED CONDITION: CRITICAL CODE STATUS: FULL CODE The high probability of a clinically significant, sudden or life-threatening deterioration of the [respiratory, cardiovascular] system(s) required my full and direct attention, intervention and personal management. The aggregate critical care time was [35] minutes without overlap. Time includes spent on; [x] Data Review and interpretation [x] Patient assessment and monitoring of vital signs [x] Documentation [x] Medication orders and management PROGNOSIS: GUARDED CONDITION: CRITICAL CODE STATUS: FULL CODE The high probability of a clinically significant, sudden or life-threatening deterioration of the [respiratory, neurology, renal] system(s) required my full and direct attention, intervention and personal management. The aggregate critical care time was [35] minutes without overlap. Time includes spent on; [x] Data Review and interpretation [x] Patient assessment and monitoring of vital signs [x] Documentation [x] Medication orders and management Subjective Date of service: 02/07/19 Principal diagnosis: GI bleed Interval history: Patient is seen today for: Acute hypoxemic Resp failure; Symptomatic anemia; AE- COPD; G.I. Bleed; Acute congestive heart failure exacerbation; Hypotension; SIRS Seen and examined at bedside; 24-hour events reviewed; nursing and respiratory care staff consulted; no adverse overnight events reported to me; was on continuous BIPAP requiring oral intubation yesterday. No reported fevers, no chills, sedated. On full mechanical ventilator support, at the bedside. Vitals, labs, medications, cahrt and imaging reviewed. Discussed in ICU-IDT rounds Objective - Exam Narrative Exam: Gen: Intubated,chronically ill looking, no patient-ventilator dyssynchrony Thin, Small bowel feeding tube in nares ETT at 23cm at the lip, sedated HEENT: Normocephalic, atraumatic Neck: supple, no JVD Heart: S1 and S2 reg, no murmurs, rubs or gallop Lungs: Diminished AE bilaterally, Clear, no crackles, no wheeze Abd: soft, non tender, non distended, normal BS Ext: No edema, no clubbing, no cyanosis, Neuro: Intubated, sedated Vital Signs - 12hr 02/06/19 02/06/19 02/06/19 21:10 21:20 21:30 Temperature Pulse Rate 105 H 104 H 88 Pulse Rate [ Bilateral] Pulse Rate [ From Monitor] Respiratory 22 26 H 16 Rate Respiratory Rate [Bilateral ] Blood Pressure 122/76 122/76 130/83 O2 Sat by Pulse 98 95 98 Oximetry 02/06/19 02/06/19 02/06/19 21:40 21:50 22:00 Temperature Pulse Rate 86 87 77 Pulse Rate [ Bilateral] Pulse Rate [ From Monitor] Respiratory 17 13 13 Rate Respiratory Rate [Bilateral ] Blood Pressure 130/83 130/83 113/65 O2 Sat by Pulse 100 97 93 Oximetry 02/06/19 02/06/19 02/06/19 22:10 22:20 22:30 Temperature Pulse Rate 83 87 70 Pulse Rate [ Bilateral] Pulse Rate [ From Monitor] Respiratory 14 14 12 Rate Respiratory Rate [Bilateral ] Blood Pressure 130/83 130/83 114/65 O2 Sat by Pulse 96 96 96 Oximetry 02/06/19 02/06/19 02/06/19 22:40 22:50 23:00 Temperature Pulse Rate 70 97 H 95 H Pulse Rate [ Bilateral] Pulse Rate [ From Monitor] Respiratory 14 16 21 Rate Respiratory Rate [Bilateral ] Blood Pressure 114/65 114/65 130/85 O2 Sat by Pulse 96 96 93 Oximetry 02/06/19 02/06/19 02/06/19 23:10 23:20 23:30 Temperature Pulse Rate 70 76 73 Pulse Rate [ Bilateral] Pulse Rate [ From Monitor] Respiratory 14 13 12 Rate Respiratory Rate [Bilateral ] Blood Pressure 130/85 130/85 120/69 O2 Sat by Pulse 94 95 96 Oximetry 02/06/19 02/06/19 02/06/19 23:38 23:40 23:50 Temperature Pulse Rate 73 84 87 Pulse Rate [ Bilateral] Pulse Rate [ From Monitor] Respiratory 14 14 14 Rate Respiratory Rate [Bilateral ] Blood Pressure 120/69 120/69 120/69 O2 Sat by Pulse 96 96 95 Oximetry 02/07/19 02/07/19 02/07/19 00:00 00:10 00:20 Temperature 98.8 F Pulse Rate 85 88 74 Pulse Rate [ Bilateral] Pulse Rate [ 90 From Monitor] Respiratory 14 16 16 Rate Respiratory Rate [Bilateral ] Blood Pressure 120/81 120/81 120/81 O2 Sat by Pulse 96 94 95 Oximetry 02/07/19 02/07/19 02/07/19 00:30 00:40 00:50 Temperature Pulse Rate 83 75 77 Pulse Rate [ Bilateral] Pulse Rate [ From Monitor] Respiratory 14 14 15 Rate Respiratory Rate [Bilateral ] Blood Pressure 126/77 126/77 126/77 O2 Sat by Pulse 93 94 Oximetry 02/07/19 02/07/19 02/07/19 01:00 01:10 01:20 Temperature Pulse Rate 111 H 87 86 Pulse Rate [ Bilateral] Pulse Rate [ From Monitor] Respiratory 29 H 15 15 Rate Respiratory Rate [Bilateral ] Blood Pressure 140/86 140/86 140/86 O2 Sat by Pulse 87 90 91 Oximetry 02/07/19 02/07/19 02/07/19 01:30 01:40 01:50 Temperature Pulse Rate 89 84 86 Pulse Rate [ Bilateral] Pulse Rate [ From Monitor] Respiratory 15 14 15 Rate Respiratory Rate [Bilateral ] Blood Pressure 128/83 128/83 128/83 O2 Sat by Pulse 92 92 92 Oximetry 02/07/19 02/07/19 02/07/19 02:00 02:04 02:10 Temperature Pulse Rate 87 86 Pulse Rate [ 87 Bilateral] Pulse Rate [ From Monitor] Respiratory 15 15 Rate Respiratory 21 Rate [Bilateral ] Blood Pressure 121/77 121/77 O2 Sat by Pulse 92 92 Oximetry 02/07/19 02/07/19 02/07/19 02:19 02:20 02:30 Temperature Pulse Rate 88 104 H Pulse Rate [ 89 Bilateral] Pulse Rate [ From Monitor] Respiratory 15 26 H Rate Respiratory 21 Rate [Bilateral ] Blood Pressure 128/83 134/80 O2 Sat by Pulse 93 88 Oximetry 02/07/19 02/07/19 02/07/19 02:40 02:50 03:00 Temperature Pulse Rate 88 88 87 Pulse Rate [ Bilateral] Pulse Rate [ From Monitor] Respiratory 15 15 16 Rate Respiratory Rate [Bilateral ] Blood Pressure 134/80 134/80 130/80 O2 Sat by Pulse 91 92 Oximetry 02/07/19 02/07/19 02/07/19 03:10 03:20 03:30 Temperature Pulse Rate 90 112 H 77 Pulse Rate [ Bilateral] Pulse Rate [ From Monitor] Respiratory 16 28 H 16 Rate Respiratory Rate [Bilateral ] Blood Pressure 130/80 130/80 133/76 O2 Sat by Pulse 92 88 89 Oximetry 02/07/19 02/07/19 02/07/19 03:40 03:50 04:00 Temperature 98.7 F Pulse Rate 85 86 86 Pulse Rate [ Bilateral] Pulse Rate [ 102 H From Monitor] Respiratory 16 16 15 Rate Respiratory Rate [Bilateral ] Blood Pressure 133/76 133/76 122/75 O2 Sat by Pulse 91 91 92 Oximetry 02/07/19 02/07/19 02/07/19 04:10 04:19 04:20 Temperature Pulse Rate 85 112 H 111 H Pulse Rate [ Bilateral] Pulse Rate [ From Monitor] Respiratory 15 27 H Rate Respiratory Rate [Bilateral ] Blood Pressure 122/75 122/75 122/75 O2 Sat by Pulse 91 96 87 Oximetry 02/07/19 02/07/19 02/07/19 04:30 04:40 04:50 Temperature Pulse Rate 89 89 90 Pulse Rate [ Bilateral] Pulse Rate [ From Monitor] Respiratory 17 17 17 Rate Respiratory Rate [Bilateral ] Blood Pressure 127/79 127/79 127/79 O2 Sat by Pulse 90 91 90 Oximetry 02/07/19 02/07/19 02/07/19 05:00 05:10 05:20 Temperature Pulse Rate 134 H 112 H 105 H Pulse Rate [ Bilateral] Pulse Rate [ From Monitor] Respiratory 27 H 23 15 Rate Respiratory Rate [Bilateral ] Blood Pressure 151/103 151/103 127/79 O2 Sat by Pulse 80 L 82 L 84 Oximetry 02/07/19 02/07/19 02/07/19 05:30 05:40 05:50 Temperature Pulse Rate 97 H 80 93 H Pulse Rate [ Bilateral] Pulse Rate [ From Monitor] Respiratory 16 12 14 Rate Respiratory Rate [Bilateral ] Blood Pressure 129/78 129/78 129/78 O2 Sat by Pulse 88 91 92 Oximetry 02/07/19 02/07/19 02/07/19 06:00 06:10 06:20 Temperature Pulse Rate 89 88 77 Pulse Rate [ Bilateral] Pulse Rate [ From Monitor] Respiratory 13 13 13 Rate Respiratory Rate [Bilateral ] Blood Pressure 121/74 121/74 121/74 O2 Sat by Pulse 94 95 Oximetry 02/07/19 02/07/19 02/07/19 06:30 06:40 06:50 Temperature Pulse Rate 89 89 87 Pulse Rate [ Bilateral] Pulse Rate [ From Monitor] Respiratory 14 14 14 Rate Respiratory Rate [Bilateral ] Blood Pressure 123/75 123/75 123/75 O2 Sat by Pulse 94 93 95 Oximetry 02/07/19 02/07/19 02/07/19 07:00 07:10 07:20 Temperature Pulse Rate 84 85 78 Pulse Rate [ Bilateral] Pulse Rate [ From Monitor] Respiratory 13 14 14 Rate Respiratory Rate [Bilateral ] Blood Pressure 125/79 125/79 125/79 O2 Sat by Pulse 94 94 95 Oximetry 02/07/19 02/07/19 02/07/19 07:30 07:40 07:50 Temperature Pulse Rate 71 115 H 69 Pulse Rate [ Bilateral] Pulse Rate [ From Monitor] Respiratory 14 27 H 13 Rate Respiratory Rate [Bilateral ] Blood Pressure 124/73 124/73 124/73 O2 Sat by Pulse 95 90 94 Oximetry 02/07/19 02/07/19 02/07/19 07:56 08:00 08:03 Temperature Pulse Rate 126 H 87 Pulse Rate [ 118 H Bilateral] Pulse Rate [ 95 H From Monitor] Respiratory 29 H Rate Respiratory 26 H Rate [Bilateral ] Blood Pressure 143/100 143/100 O2 Sat by Pulse 90 93 Oximetry 02/07/19 02/07/19 02/07/19 08:10 08:20 08:30 Temperature Pulse Rate 77 76 86 Pulse Rate [ Bilateral] Pulse Rate [ From Monitor] Respiratory 14 13 14 Rate Respiratory Rate [Bilateral ] Blood Pressure 143/100 143/100 128/83 O2 Sat by Pulse 93 95 Oximetry 02/07/19 08:40 Temperature Pulse Rate 101 H Pulse Rate [ Bilateral] Pulse Rate [ From Monitor] Respiratory 17 Rate Respiratory Rate [Bilateral ] Blood Pressure 128/83 O2 Sat by Pulse 96 Oximetry CBC and BMP: 02/08/19 04:26 02/08/19 04:26 ABG, PT/INR, D-dimer: ABG POC ABG pH 7.481 (7.35-7.45) H 02/07/19 04:26 POC ABG pCO2 31.3 (35-45) L 02/07/19 04:26 POC ABG pO2 50 (80-105) L 02/07/19 04:26 POC ABG HCO3 23.4 (22-26 mml/L) 02/07/19 04:26 POC ABG Total CO2 24 (23-27mmol/L) 02/07/19 04:26 POC ABG O2 Sat 88 02/07/19 04:26 PT/INR, D-dimer PT 19.3 Sec. (12.2-14.9) H 02/03/19 19:24 INR 1.52 (0.87-1.13) H 02/03/19 19:24 Abnormal lab findings: Abnormal Labs 02/03/19 02/03/19 02/03/19 02:57 18:06 18:06 WBC RBC 0.88 L Hgb 1.9 L* Hct 7.1 L* MCH 22 L MCHC 27 L RDW 23.3 H Plt Count 489 H [place] % (Auto) 10.1 H Lymph # 1.1 L Seg Neutrophils % 71.2 H Seg Neuts % (Manual) Lymphocytes % (Manual) Seg Neutrophils # Man Lymphocytes # (Manual) PT INR POC ABG pH POC ABG pCO2 POC ABG pO2 Sodium Potassium Chloride Carbon Dioxide BUN Creatinine Glucose POC Glucose Lactic Acid Calcium Phosphorus Troponin T C-Reactive Protein NT-Pro-B Natriuret Pep 9160 H Total Protein Albumin Triglycerides HDL Cholesterol Urine WBC (Auto) 7.0 H Crossmatch 02/03/19 02/03/19 02/03/19 18:06 18:08 18:08 WBC RBC Hgb Hct MCH MCHC RDW Plt Count [place] % (Auto) Lymph # Seg Neutrophils % Seg Neuts % (Manual) Lymphocytes % (Manual) Seg Neutrophils # Man Lymphocytes # (Manual) PT INR POC ABG pH POC ABG pCO2 POC ABG pO2 Sodium Potassium 3.3 L Chloride Carbon Dioxide 17 L BUN Creatinine Glucose POC Glucose Lactic Acid 9.90 H* Calcium 7.9 L Phosphorus Troponin T 0.134 H* C-Reactive Protein NT-Pro-B Natriuret Pep Total Protein 5.1 L Albumin 2.8 L Triglycerides 164 H HDL Cholesterol 31 L Urine WBC (Auto) Crossmatch See Detail 02/03/19 02/03/19 02/03/19 19:24 19:24 19:24 WBC RBC Hgb Hct MCH MCHC RDW Plt Count [place] % (Auto) Lymph # Seg Neutrophils % Seg Neuts % (Manual) Lymphocytes % (Manual) Seg Neutrophils # Man Lymphocytes # (Manual) PT 19.3 H INR 1.52 H POC ABG pH POC ABG pCO2 POC ABG pO2 Sodium Potassium Chloride Carbon Dioxide BUN Creatinine Glucose POC Glucose Lactic Acid 6.30 H* Calcium Phosphorus Troponin T 0.139 H* C-Reactive Protein NT-Pro-B Natriuret Pep Total Protein Albumin Triglycerides HDL Cholesterol Urine WBC (Auto) Crossmatch 02/03/19 02/03/19 02/04/19 20:30 23:36 01:18 WBC RBC Hgb Hct MCH MCHC RDW Plt Count [place] % (Auto) Lymph # Seg Neutrophils % Seg Neuts % (Manual) Lymphocytes % (Manual) Seg Neutrophils # Man Lymphocytes # (Manual) PT INR POC ABG pH 7.515 H POC ABG pCO2 POC ABG pO2 121 H Sodium Potassium Chloride Carbon Dioxide BUN Creatinine Glucose POC Glucose Lactic Acid 6.50 H* 5.70 H* Calcium Phosphorus Troponin T C-Reactive Protein NT-Pro-B Natriuret Pep Total Protein Albumin Triglycerides HDL Cholesterol Urine WBC (Auto) Crossmatch 02/04/19 02/04/19 02/04/19 04:35 04:35 04:35 WBC 17.5 H RBC Hgb Hct MCH 27 L MCHC RDW 15.9 H Plt Count [place] % (Auto) Lymph # Seg Neutrophils % Seg Neuts % (Manual) 96.0 H Lymphocytes % (Manual) 1.0 L Seg Neutrophils # Man 16.8 H Lymphocytes # (Manual) 0.2 L PT INR POC ABG pH POC ABG pCO2 POC ABG pO2 Sodium 147 H Potassium 3.2 L Chloride Carbon Dioxide 21 L BUN Creatinine Glucose 170 H POC Glucose Lactic Acid 3.60 H* Calcium 7.9 L Phosphorus Troponin T C-Reactive Protein NT-Pro-B Natriuret Pep Total Protein Albumin Triglycerides HDL Cholesterol Urine WBC (Auto) Crossmatch 02/04/19 02/04/19 02/04/19 10:59 17:07 17:07 WBC RBC Hgb Hct MCH MCHC RDW Plt Count [place] % (Auto) Lymph # Seg Neutrophils % Seg Neuts % (Manual) Lymphocytes % (Manual) Seg Neutrophils # Man Lymphocytes # (Manual) PT INR POC ABG pH POC ABG pCO2 POC ABG pO2 Sodium Potassium 3.1 L Chloride Carbon Dioxide BUN Creatinine Glucose POC Glucose Lactic Acid 2.30 H* Calcium Phosphorus Troponin T C-Reactive Protein 9.30 H NT-Pro-B Natriuret Pep Total Protein Albumin Triglycerides HDL Cholesterol Urine WBC (Auto) Crossmatch 02/04/19 02/04/19 02/05/19 17:15 21:04 00:05 WBC RBC Hgb Hct MCH MCHC RDW Plt Count [place] % (Auto) Lymph # Seg Neutrophils % Seg Neuts % (Manual) Lymphocytes % (Manual) Seg Neutrophils # Man Lymphocytes # (Manual) PT INR POC ABG pH 7.310 L POC ABG pCO2 POC ABG pO2 68 L Sodium Potassium Chloride Carbon Dioxide BUN Creatinine Glucose POC Glucose Lactic Acid 2.40 H* 2.70 H* Calcium Phosphorus Troponin T C-Reactive Protein NT-Pro-B Natriuret Pep Total Protein Albumin Triglycerides HDL Cholesterol Urine WBC (Auto) Crossmatch 02/05/19 02/05/19 02/05/19 04:41 04:41 12:54 WBC 15.1 H RBC Hgb Hct MCH MCHC RDW 16.6 H Plt Count [place] % (Auto) Lymph # Seg Neutrophils % Seg Neuts % (Manual) 90.0 H Lymphocytes % (Manual) 2.0 L Seg Neutrophils # Man 13.6 H Lymphocytes # (Manual) 0.3 L PT INR POC ABG pH POC ABG pCO2 POC ABG pO2 74 L Sodium 147 H Potassium Chloride 114.1 H Carbon Dioxide 20 L BUN 19 H Creatinine Glucose 192 H POC Glucose Lactic Acid Calcium 7.4 L Phosphorus Troponin T C-Reactive Protein NT-Pro-B Natriuret Pep Total Protein Albumin Triglycerides HDL Cholesterol Urine WBC (Auto) Crossmatch 02/06/19 02/06/19 02/06/19 01:46 11:42 11:42 WBC 21.1 H RBC Hgb Hct MCH MCHC RDW 17.0 H Plt Count [place] % (Auto) Lymph # Seg Neutrophils % Seg Neuts % (Manual) Lymphocytes % (Manual) Seg Neutrophils # Man Lymphocytes # (Manual) PT INR POC ABG pH POC ABG pCO2 34.4 L POC ABG pO2 56 L Sodium 151 H Potassium Chloride 112.1 H Carbon Dioxide BUN Creatinine Glucose 187 H POC Glucose Lactic Acid Calcium 8.1 L Phosphorus Troponin T C-Reactive Protein NT-Pro-B Natriuret Pep Total Protein Albumin Triglycerides HDL Cholesterol Urine WBC (Auto) Crossmatch 02/06/19 02/07/19 02/07/19 12:04 04:26 05:27 WBC 21.7 H RBC Hgb Hct MCH MCHC RDW 17.6 H Plt Count [place] % (Auto) Lymph # Seg Neutrophils % Seg Neuts % (Manual) Lymphocytes % (Manual) Seg Neutrophils # Man Lymphocytes # (Manual) PT INR POC ABG pH 7.481 H POC ABG pCO2 31.3 L POC ABG pO2 63 L 50 L Sodium Potassium Chloride Carbon Dioxide BUN Creatinine Glucose POC Glucose Lactic Acid Calcium Phosphorus Troponin T C-Reactive Protein NT-Pro-B Natriuret Pep Total Protein Albumin Triglycerides HDL Cholesterol Urine WBC (Auto) Crossmatch 02/07/19 02/07/19 05:27 05:29 WBC RBC Hgb Hct MCH MCHC RDW Plt Count [place] % (Auto) Lymph # Seg Neutrophils % Seg Neuts % (Manual) Lymphocytes % (Manual) Seg Neutrophils # Man Lymphocytes # (Manual) PT INR POC ABG pH POC ABG pCO2 POC ABG pO2 Sodium 147 H Potassium Chloride 108.4 H Carbon Dioxide BUN Creatinine 0.6 L Glucose 184 H POC Glucose 188 H Lactic Acid Calcium 8.3 L Phosphorus 1.50 L Troponin T C-Reactive Protein NT-Pro-B Natriuret Pep Total Protein Albumin Triglycerides HDL Cholesterol Urine WBC (Auto) Crossmatch Chest x-ray: image reviewed (ETT in positin, bilateral nodular alveolar infiltrates)
--- NOTE | 2019-02-07 09:29 | Progress Note ---
Assessment and Plan Assessment and plan: 1. Acute encephalopathy, 2. Acute hypoxic respiratory failure with Severe respiratory alkalosis - s/p intubation 02/06 3. Acute GI bleed, possible PUD 4. Acute blood loss anemia (due to #2) 5. Hypokalemia, cont replete 6. CHF with acute exacerbation ( EF 20-25%) 7. SIRS, source of infection unclear 8. Severe protein calorie malnutrition 9. Hypernatremia, low volume hypotonic fluid Plan: Monitor at ICU Now intubated, was on BIPAP monitor with serial XRY and abg, cont nebs Consulted GI for acute GI bleed, s/p 5 units of packed RBCs monitor h/h, place on iv lasix Avoid NSAIDs, follow Cx, iv abx, BMP in the a.m. replete electrolytes, consulted dietary for TF No chemical DVT prophylaxis (GI bleed) The high probability of a clinically significant, sudden or life threatening deterioration of the [multiple] system(s) required my full and direct attention, intervention and personal management. The aggregate critical care time was [34] minutes. This time is in addition to time spent performing reported procedures but includes the following: [x] Data Review and interpretation [x] Patient assessment and monitoring of vital signs [x] Documentation [x] Medication orders and management History Interval history: Intubated yesterday for worsening shortness of breath Hospitalist Physical - Physical exam Narrative exam: Gen: Intubated, malnourished HEENT: Normocephalic, atraumatic Neck: supple, no JVD Heart: S1 and S2 reg, no murmurs, rubs or gallop Lungs: Clear, no crackles, no wheeze Abd: soft, non tender, non distended, normal BS Ext: No edema, no clubbing, no cyanosis, Neuro: Intubated, sedated - Constitutional Vitals: Temp Pulse Resp BP Pulse Ox 98.7 F 101 H 17 128/83 96 02/07/19 04:00 02/07/19 08:40 02/07/19 08:40 02/07/19 08:40 02/07/19 08:40 General appearance: Present: cachectic Results - Labs CBC & Chem 7: 02/07/19 05:27 02/07/19 05:27 Labs: Laboratory Last Values WBC 21.7 K/mm3 (4.5-11.0) H 02/07/19 05:27 RBC 4.02 M/mm3 (3.65-5.03) 02/07/19 05:27 Hgb 11.1 gm/dl (10.1-14.3) 02/07/19 05:27 Hct 33.8 % (30.3-42.9) 02/07/19 05:27 MCV 84 fl (79-97) 02/07/19 05:27 MCH 28 pg (28-32) 02/07/19 05:27 MCHC 33 % (30-34) 02/07/19 05:27 RDW 17.6 % (13.2-15.2) H 02/07/19 05:27 Plt Count 146 K/mm3 (140-440) 02/07/19 05:27 Lymph % (Auto) 17.6 % (13.4-35.0) 02/03/19 18:06 [place] % (Auto) 10.1 % (0.0-7.3) H 02/03/19 18:06 Eos % (Auto) 0.1 % (0.0-4.3) 02/03/19 18:06 Baso % (Auto) 1.0 % (0.0-1.8) 02/03/19 18:06 Lymph # 1.1 K/mm3 (1.2-5.4) L 02/03/19 18:06 [place] # 0.6 K/mm3 (0.0-0.8) 02/03/19 18:06 Eos # 0.0 K/mm3 (0.0-0.4) 02/03/19 18:06 Baso # 0.1 K/mm3 (0.0-0.1) 02/03/19 18:06 Add Manual Diff Complete 02/05/19 04:41 Total Counted 100 02/05/19 04:41 Seg Neutrophils % Plastic Press Molder 02/07/19 05:27 Seg Neuts % (Manual) 90.0 % (40.0-70.0) H 02/05/19 04:41 7.0 % 02/05/19 04:41 2.0 % (13.4-35.0) L 02/05/19 04:41 Reactive Lymphs % (Man) 0 % 02/05/19 04:41 1.0 % (0.0-7.3) 02/05/19 04:41 0 % (0.0-4.3) 02/05/19 04:41 0 % (0.0-1.8) 02/05/19 04:41 0 % 02/05/19 04:41 0 % 02/05/19 04:41 0 % 02/05/19 04:41 0 % 02/05/19 04:41 Nucleated RBC % Not Reportable 02/05/19 04:41 Seg Neutrophils # 4.5 K/mm3 (1.8-7.7) 02/03/19 18:06 Seg Neutrophils # Man 13.6 K/mm3 (1.8-7.7) H 02/05/19 04:41 Band Neutrophils # 1.1 K/mm3 02/05/19 04:41 0.3 K/mm3 (1.2-5.4) L 02/05/19 04:41 Abs React Lymphs (Man) 0.0 K/mm3 02/05/19 04:41 0.2 K/mm3 (0.0-0.8) 02/05/19 04:41 0.0 K/mm3 (0.0-0.4) 02/05/19 04:41 0.0 K/mm3 (0.0-0.1) 02/05/19 04:41 0.0 K/mm3 02/05/19 04:41 0.0 K/mm3 02/05/19 04:41 0.0 K/mm3 02/05/19 04:41 Blast Cells # 0.0 K/mm3 02/05/19 04:41 WBC Morphology Not Reportable 02/05/19 04:41 WBC Morphology TNR 02/05/19 04:41 Hypersegmented Neuts Not Reportable 02/05/19 04:41 Hyposegmented Neuts Not Reportable 02/05/19 04:41 Hypogranular Neuts Not Reportable 02/05/19 04:41 Not Reportable 02/05/19 04:41 Not Reportable 02/05/19 04:41 Not Reportable 02/05/19 04:41 Not Reportable 02/05/19 04:41 Not Reportable 02/05/19 04:41 Not Reportable 02/05/19 04:41 Consistent w auto 02/05/19 04:41 Not Reportable 02/05/19 04:41 Plt Clumps, EDTA Not Reportable 02/05/19 04:41 Not Reportable 02/05/19 04:41 Not Reportable 02/05/19 04:41 Not Reportable 02/05/19 04:41 Plt Morphology Comment Not Reportable 02/05/19 04:41 RBC Morphology Not Reportable 02/05/19 04:41 Dimorphic RBCs Not Reportable 02/05/19 04:41 Not Reportable 02/05/19 04:41 Not Reportable 02/05/19 04:41 Not Reportable 02/05/19 04:41 Not Reportable 02/05/19 04:41 Not Reportable 02/05/19 04:41 Not Reportable 02/05/19 04:41 Not Reportable 02/05/19 04:41 Not Reportable 02/05/19 04:41 Not Reportable 02/05/19 04:41 Not Reportable 02/05/19 04:41 Not Reportable 02/05/19 04:41 Not Reportable 02/05/19 04:41 Not Reportable 02/05/19 04:41 Not Reportable 02/05/19 04:41 Not Reportable 02/05/19 04:41 Not Reportable 02/05/19 04:41 Not Reportable 02/05/19 04:41 2+ 02/05/19 04:41 Not Reportable 02/05/19 04:41 Acanthocytes (Spur) Not Reportable 02/05/19 04:41 Rouleaux Not Reportable 02/05/19 04:41 Not Reportable 02/05/19 04:41 Not Reportable 02/05/19 04:41 Not Reportable 02/05/19 04:41 Not Reportable 02/05/19 04:41 Hem Pathologist Commnt No 02/05/19 04:41 PT 19.3 Sec. (12.2-14.9) H 02/03/19 19:24 INR 1.52 (0.87-1.13) H 02/03/19 19:24 APTT 30.3 Sec. (24.2-36.6) 02/03/19 19:24 POC ABG pH 7.481 (7.35-7.45) H 02/07/19 04:26 POC ABG pCO2 31.3 (35-45) L 02/07/19 04:26 POC ABG pO2 50 (80-105) L 02/07/19 04:26 POC ABG HCO3 23.4 (22-26 mml/L) 02/07/19 04:26 POC ABG Total CO2 24 (23-27mmol/L) 02/07/19 04:26 POC ABG O2 Sat 88 02/07/19 04:26 POC ABG Base Excess 0 ((-2) - (+3)mmol/L) 02/07/19 04:26 40 % 02/07/19 04:26 Sodium 147 mmol/L (137-145) H 02/07/19 05:27 Potassium 3.9 mmol/L (3.6-5.0) 02/07/19 05:27 Chloride 108.4 mmol/L (98-107) H 02/07/19 05:27 Carbon Dioxide 26 mmol/L (22-30) 02/07/19 05:27 17 mmol/L 02/07/19 05:27 BUN 16 mg/dL (7-17) 02/07/19 05:27 0.6 mg/dL (0.7-1.2) L 02/07/19 05:27 Estimated GFR > 60 ml/min 02/07/19 05:27 27 % 02/07/19 05:27 Glucose 184 mg/dL (65-100) H 02/07/19 05:27 POC Glucose 188 (70-105) H 02/07/19 05:29 Lactic Acid 1.70 mmol/L (0.7-2.0) 02/05/19 04:41 Calcium 8.3 mg/dL (8.4-10.2) L 02/07/19 05:27 Phosphorus 1.50 mg/dL (2.5-4.5) L 02/07/19 05:27 Magnesium 1.90 mg/dL (1.7-2.3) 02/07/19 05:27 0.30 mg/dL (0.1-1.2) 02/03/19 18:08 AST 35 units/L (5-40) 02/03/19 18:08 ALT 27 units/L (7-56) 02/03/19 18:08 117 units/L (35-129) 02/03/19 18:08 0.139 ng/mL (0.00-0.029) H* 02/03/19 19:24 9.30 mg/dL (0.00-1.30) H 02/04/19 17:07 NT-Pro-B Natriuret Pep 9160 pg/mL (0-900) H 02/03/19 18:06 5.1 g/dL (6.3-8.2) L 02/03/19 18:08 2.8 g/dL (3.9-5) L 02/03/19 18:08 1.2 % 02/03/19 18:08 Triglycerides 164 mg/dL (2-149) H 02/03/19 18:08 Cholesterol 125 mg/dL (50-199) 02/03/19 18:08 75 mg/dL (50-130) 02/03/19 18:08 31 mg/dL (40-59) L 02/03/19 18:08 4.03 % 02/03/19 18:08 Yellow (Yellow) 02/03/19 02:57 Clear (Clear) 02/03/19 02:57 6.0 (5.0-7.0) 02/03/19 02:57 Ur Specific [place] 1.011 (1.003-1.030) 02/03/19 02:57 <15 mg/dl mg/dL (Negative) 02/03/19 02:57 Neg mg/dL (Negative) 02/03/19 02:57 Neg mg/dL (Negative) 02/03/19 02:57 Neg (Negative) 02/03/19 02:57 Neg (Negative) 02/03/19 02:57 Neg (Negative) 02/03/19 02:57 < 2.0 mg/dL (<2.0) 02/03/19 02:57 Ur Leukocyte Esterase Neg (Negative) 02/03/19 02:57 7.0 /HPF (0.0-6.0) H 02/03/19 02:57 8.0 /HPF (0.0-6.0) 02/03/19 02:57 U Epithel Cells (Auto) 1.0 /HPF (0-13.0) 02/03/19 02:57 2+ /HPF (Negative) 02/03/19 02:57 Hyaline Casts 22 /LPF 02/03/19 02:57 3+ /HPF 02/03/19 02:57 Blood Type A POSITIVE 02/03/19 18:06 Antibody Screen Negative 02/03/19 18:06 Crossmatch See Detail 02/03/19 18:06 Active Medications - Current Medications Current Medications: Generic Name Dose Route Start Last Admin Trade Name Freq PRN Reason Stop Dose Admin Albuterol/Ipratropium 1 ampul 02/04/19 02:00 02/07/19 07:57 Duoneb *Not For Prn Use* IH 1 ampul Q6HRT JOEL Administration Lipase/Protease/Amylase 1 each 02/06/19 15:53 Pancrebrant [place] 10,500 Unit FEEDTUBE PRN PRN For Clogged Feeding Tube Arformoterol Tartrate 15 mcg 02/04/19 14:15 02/07/19 07:57 Brovana Nebu IH 15 mcg Q12HRT JOEL Administration Budesonide 0.5 mg 02/04/19 20:00 02/07/19 07:57 Pulmicort IH 0.5 mg Q12HRT JOEL Administration Fentanyl 50 mcg 02/06/19 10:50 Sublimaze IV Q10MIN PRN ANALGESIA Furosemide 40 mg 02/06/19 06:00 02/07/19 05:54 Lasix IV 40 mg 0600,1800 JOEL Administration Hydrophilic Ointment 1 applic 02/06/19 10:50 Vaseline Lip Therapy TP Q2HR PRN Dry Lips Piperacillin Sod/Tazobactam Sod 3.375 gm in 50 mls @ 100 mls/hr 02/04/19 06:00 02/07/19 06:23 Zosyn/Ns 3.375gm/50ml IV 02/08/19 23:59 Infused Q8HR JOEL Infusion Fentanyl Citrate 2,000 mcg in 100 mls @ 2.075 mls/hr 02/06/19 11:00 02/06/19 19:00 Fentanyl Drip Premix IV 1 mcg/kg/hr TITR JOEL 2.075 mls/hr Titration Protocol 1 MCG/KG/HR Potassium Chloride 40 meq/ 1,020 mls @ 75 mls/hr 02/06/19 17:15 02/06/19 19:51 Dextrose IV 75 mls/hr DIRECT JOEL Administration Potassium Phosphate 30 mmol/ 510 mls @ 85 mls/hr 02/07/19 10:00 Sodium Chloride IV 02/07/19 15:59 ONCE ONE Methylprednisolone Sodium Succinate 40 mg 02/04/19 15:00 02/06/19 21:22 Solu-Medrol IV 40 mg Q12HR JOEL Administration Morphine Sulfate 2 mg 02/04/19 12:51 02/06/19 02:35 Morphine IV 2 mg Q4H PRN Administration Pain, Moderate (4-6) Multi-Ingred Cream/Lotion/Oil/Oint 1 applic 02/06/19 10:50 Artificial Tears Ophth Oint OU Q4HR PRN Dry Eye(s) Ondansetron HCl 4 mg 02/03/19 20:27 Zofran IV Q8H PRN Nausea And Vomiting Pantoprazole Sodium 40 mg 02/06/19 10:00 02/06/19 09:37 Protonix IV 40 mg QDAY JOEL Administration Simple Syrup 15 ml 02/06/19 15:53 Simple Syrup FEEDTUBE PRN PRN Hypoglycemia Simple Syrup 30 ml 02/06/19 15:53 Simple Syrup FEEDTUBE PRN PRN Hypoglycemia Sodium Bicarbonate 325 mg 02/06/19 15:53 Sodium Bicarbonate FEEDTUBE PRN PRN For Clogged Feeding Tube Sodium Chloride 10 ml 02/03/19 22:00 02/06/19 21:23 Sodium Chloride Flush Syringe 10 Ml IV 10 ml BID JOEL Administration Sodium Chloride 10 ml 02/03/19 20:27 Sodium Chloride Flush Syringe 10 Ml IV PRN PRN LINE FLUSH Nutrition/Malnutrition Assess - Dietary Evaluation Nutrition/Malnutrition Findings: Nutrition Notes Start: 02/04/19 14:37 Freq: Status: Active Protocol: Document 02/06/19 15:43 RM (Rec: 02/06/19 15:52 RM [id number]) Nutrition Notes Initial or Follow up Reassessment Current Diagnosis COPD,Heart Failure Other Pertinent Diagnosis AMS Current Diet Clear liquid Labs/Tests Reviewed Pertinent Medications Lasix, Solu-Medrol Height 5 ft 3 in Weight 41.5 kg [place] Body Weight (kg) 52.27 BMI 16.2 Subjective/Other Information Consulted for TF recommendation. Burn Absent Trauma Absent #1 Nutrition Diagnosis Inadequate oral intake Diagnosis Progress(for reassessment Continues documentation) Is patient on ventilator? No Is Patient Ambulatory and/or Out of Bed No REE-([place]-St. Jeor-confined to bed) 1091.172 Kcal/Kg value to use for calculation 32 Approximate Energy Requirements Using 1328 kcal/Kg Calculation Used for Recommendations Kcal/kg Additional Notes Protein Needs: 50-83g (1.2-2g/ kg) Fluid Needs: 1 ml/kcal Nutrition Intervention Nutrition Support: Vital 1.2 at 50 ml/hr. Water flush of 80 mls q 4 hrs. Kcal 1,440 Protein (gm) 90 Fluid (mL) 973 Goal #1 TF tolerance Goal #2 Meet at least 80% of calorie and protein needs via TF Anticipated Discharge Needs: Unable to determine at this time Follow-Up By: 02/08/19 Additional Comments Follow for new TF
[2019-02-07 09:38] LABS: Basophils % (Manual) 0 % (0.0-1.8); Eosinophils % (Manual) 0 % (0.0-4.3); Total Cells Counted 100
[2019-02-07] MEDS: PROTONIX IV SCH (09:40)
[2019-02-07] MEDS: SODIUM CHLORIDE FLUSH SYRINGE 10 ML IV SCH ×2 (09:41→21:22)
[2019-02-07] MEDS: SOLU-Medrol IV SCH ×2 (09:41→21:22)
[2019-02-07 09:45] LABS: Anisocytosis Few; Platelet Estimate Consistent w Auto; Poikilocytosis Few
[2019-02-07] MEDS ORDERED: KPHOS 30 MMOL in NACL 0.9% 500 ML 500 ML IV ONE (10:00)
--- NOTE | 2019-02-07 10:04 | Progress Note ---
Assessment and Plan 1. Hypernatremia: High sodium is likely from diuretics. Sodium level is improving. Continue IV D5W. Monitor Sodium level. 2. FEN: Volume overload, on IV Lasix. Replete Phos. 3. Respiratory failure: COPD exacerbation. On vent. 4. Suspected GI bleed: Followed by GI. 5. Anemia: Improved. 6. Leukocytosis. Subjective Date of service: 02/07/19 Principal diagnosis: GI bleed Interval history: Patient was seen and examined at the bedside. at the bedside. Objective - Vital Signs Vital signs: Vital Signs - 12hr 02/06/19 02/06/19 02/06/19 22:10 22:20 22:30 Temperature Pulse Rate 83 87 70 Pulse Rate [ Bilateral] Pulse Rate [ From Monitor] Respiratory 14 14 12 Rate Respiratory Rate [Bilateral ] Blood Pressure 130/83 130/83 114/65 O2 Sat by Pulse 96 96 96 Oximetry 02/06/19 02/06/19 02/06/19 22:40 22:50 23:00 Temperature Pulse Rate 70 97 H 95 H Pulse Rate [ Bilateral] Pulse Rate [ From Monitor] Respiratory 14 16 21 Rate Respiratory Rate [Bilateral ] Blood Pressure 114/65 114/65 130/85 O2 Sat by Pulse 96 96 93 Oximetry 02/06/19 02/06/19 02/06/19 23:10 23:20 23:30 Temperature Pulse Rate 70 76 73 Pulse Rate [ Bilateral] Pulse Rate [ From Monitor] Respiratory 14 13 12 Rate Respiratory Rate [Bilateral ] Blood Pressure 130/85 130/85 120/69 O2 Sat by Pulse 94 95 96 Oximetry 02/06/19 02/06/19 02/06/19 23:38 23:40 23:50 Temperature Pulse Rate 73 84 87 Pulse Rate [ Bilateral] Pulse Rate [ From Monitor] Respiratory 14 14 14 Rate Respiratory Rate [Bilateral ] Blood Pressure 120/69 120/69 120/69 O2 Sat by Pulse 96 96 95 Oximetry 02/07/19 02/07/19 02/07/19 00:00 00:10 00:20 Temperature 98.8 F Pulse Rate 85 88 74 Pulse Rate [ Bilateral] Pulse Rate [ 90 From Monitor] Respiratory 14 16 16 Rate Respiratory Rate [Bilateral ] Blood Pressure 120/81 120/81 120/81 O2 Sat by Pulse 96 94 95 Oximetry 02/07/19 02/07/19 02/07/19 00:30 00:40 00:50 Temperature Pulse Rate 83 75 77 Pulse Rate [ Bilateral] Pulse Rate [ From Monitor] Respiratory 14 14 15 Rate Respiratory Rate [Bilateral ] Blood Pressure 126/77 126/77 126/77 O2 Sat by Pulse 93 94 Oximetry 02/07/19 02/07/19 02/07/19 01:00 01:10 01:20 Temperature Pulse Rate 111 H 87 86 Pulse Rate [ Bilateral] Pulse Rate [ From Monitor] Respiratory 29 H 15 15 Rate Respiratory Rate [Bilateral ] Blood Pressure 140/86 140/86 140/86 O2 Sat by Pulse 87 90 91 Oximetry 02/07/19 02/07/19 02/07/19 01:30 01:40 01:50 Temperature Pulse Rate 89 84 86 Pulse Rate [ Bilateral] Pulse Rate [ From Monitor] Respiratory 15 14 15 Rate Respiratory Rate [Bilateral ] Blood Pressure 128/83 128/83 128/83 O2 Sat by Pulse 92 92 92 Oximetry 02/07/19 02/07/19 02/07/19 02:00 02:04 02:10 Temperature Pulse Rate 87 86 Pulse Rate [ 87 Bilateral] Pulse Rate [ From Monitor] Respiratory 15 15 Rate Respiratory 21 Rate [Bilateral ] Blood Pressure 121/77 121/77 O2 Sat by Pulse 92 92 Oximetry 02/07/19 02/07/19 02/07/19 02:19 02:20 02:30 Temperature Pulse Rate 88 104 H Pulse Rate [ 89 Bilateral] Pulse Rate [ From Monitor] Respiratory 15 26 H Rate Respiratory 21 Rate [Bilateral ] Blood Pressure 128/83 134/80 O2 Sat by Pulse 93 88 Oximetry 02/07/19 02/07/19 02/07/19 02:40 02:50 03:00 Temperature Pulse Rate 88 88 87 Pulse Rate [ Bilateral] Pulse Rate [ From Monitor] Respiratory 15 15 16 Rate Respiratory Rate [Bilateral ] Blood Pressure 134/80 134/80 130/80 O2 Sat by Pulse 91 92 Oximetry 02/07/19 02/07/19 02/07/19 03:10 03:20 03:30 Temperature Pulse Rate 90 112 H 77 Pulse Rate [ Bilateral] Pulse Rate [ From Monitor] Respiratory 16 28 H 16 Rate Respiratory Rate [Bilateral ] Blood Pressure 130/80 130/80 133/76 O2 Sat by Pulse 92 88 89 Oximetry 02/07/19 02/07/19 02/07/19 03:40 03:50 04:00 Temperature 98.7 F Pulse Rate 85 86 86 Pulse Rate [ Bilateral] Pulse Rate [ 102 H From Monitor] Respiratory 16 16 15 Rate Respiratory Rate [Bilateral ] Blood Pressure 133/76 133/76 122/75 O2 Sat by Pulse 91 91 92 Oximetry 02/07/19 02/07/19 02/07/19 04:10 04:19 04:20 Temperature Pulse Rate 85 112 H 111 H Pulse Rate [ Bilateral] Pulse Rate [ From Monitor] Respiratory 15 27 H Rate Respiratory Rate [Bilateral ] Blood Pressure 122/75 122/75 122/75 O2 Sat by Pulse 91 96 87 Oximetry 02/07/19 02/07/19 02/07/19 04:30 04:40 04:50 Temperature Pulse Rate 89 89 90 Pulse Rate [ Bilateral] Pulse Rate [ From Monitor] Respiratory 17 17 17 Rate Respiratory Rate [Bilateral ] Blood Pressure 127/79 127/79 127/79 O2 Sat by Pulse 90 91 90 Oximetry 02/07/19 02/07/19 02/07/19 05:00 05:10 05:20 Temperature Pulse Rate 134 H 112 H 105 H Pulse Rate [ Bilateral] Pulse Rate [ From Monitor] Respiratory 27 H 23 15 Rate Respiratory Rate [Bilateral ] Blood Pressure 151/103 151/103 127/79 O2 Sat by Pulse 80 L 82 L 84 Oximetry 02/07/19 02/07/19 02/07/19 05:30 05:40 05:50 Temperature Pulse Rate 97 H 80 93 H Pulse Rate [ Bilateral] Pulse Rate [ From Monitor] Respiratory 16 12 14 Rate Respiratory Rate [Bilateral ] Blood Pressure 129/78 129/78 129/78 O2 Sat by Pulse 88 91 92 Oximetry 02/07/19 02/07/19 02/07/19 06:00 06:10 06:20 Temperature Pulse Rate 89 88 77 Pulse Rate [ Bilateral] Pulse Rate [ From Monitor] Respiratory 13 13 13 Rate Respiratory Rate [Bilateral ] Blood Pressure 121/74 121/74 121/74 O2 Sat by Pulse 94 95 Oximetry 02/07/19 02/07/19 02/07/19 06:30 06:40 06:50 Temperature Pulse Rate 89 89 87 Pulse Rate [ Bilateral] Pulse Rate [ From Monitor] Respiratory 14 14 14 Rate Respiratory Rate [Bilateral ] Blood Pressure 123/75 123/75 123/75 O2 Sat by Pulse 94 93 95 Oximetry 02/07/19 02/07/19 02/07/19 07:00 07:10 07:20 Temperature Pulse Rate 84 85 78 Pulse Rate [ Bilateral] Pulse Rate [ From Monitor] Respiratory 13 14 14 Rate Respiratory Rate [Bilateral ] Blood Pressure 125/79 125/79 125/79 O2 Sat by Pulse 94 94 95 Oximetry 02/07/19 02/07/19 02/07/19 07:30 07:40 07:50 Temperature Pulse Rate 71 115 H 69 Pulse Rate [ Bilateral] Pulse Rate [ From Monitor] Respiratory 14 27 H 13 Rate Respiratory Rate [Bilateral ] Blood Pressure 124/73 124/73 124/73 O2 Sat by Pulse 95 90 94 Oximetry 02/07/19 02/07/19 02/07/19 07:56 08:00 08:03 Temperature Pulse Rate 126 H 87 Pulse Rate [ 118 H Bilateral] Pulse Rate [ 95 H From Monitor] Respiratory 29 H Rate Respiratory 26 H Rate [Bilateral ] Blood Pressure 143/100 143/100 O2 Sat by Pulse 90 93 Oximetry 02/07/19 02/07/19 02/07/19 08:10 08:20 08:30 Temperature Pulse Rate 77 76 86 Pulse Rate [ Bilateral] Pulse Rate [ From Monitor] Respiratory 14 13 14 Rate Respiratory Rate [Bilateral ] Blood Pressure 143/100 143/100 128/83 O2 Sat by Pulse 93 95 Oximetry 02/07/19 08:40 Temperature Pulse Rate 101 H Pulse Rate [ Bilateral] Pulse Rate [ From Monitor] Respiratory 17 Rate Respiratory Rate [Bilateral ] Blood Pressure 128/83 O2 Sat by Pulse 96 Oximetry - General Appearance General appearance: well-developed, appears stated age, sedated on ventilator, intubated EENT: ATNC, PERRL Neck: supple Respiratory: Present: Clear to Ascultation Cardiology: regular, S1S2, no murmurs Gastrointestinal: normoactive bowel sounds, no tenderness, no distended Integumentary: no rash, warm and dry Neurologic: obtunded Musculoskeletal: other (no edema) - Lab 02/07/19 05:27 02/07/19 05:27 Most recent lab results Calcium 8.3 mg/dL (8.4-10.2) L 02/07/19 05:27 Phosphorus 1.50 mg/dL (2.5-4.5) L 02/07/19 05:27 Magnesium 1.90 mg/dL (1.7-2.3) 02/07/19 05:27 Medications & Allergies - Medications Allergies/Adverse Reactions: Allergies No Known Allergies Allergy (Unverified 02/03/19 18:28) Home Medications: Home Medications Medication Instructions Recorded Confirmed Last Taken Type No Known Home Medications [No 02/07/19 02/07/19 Unknown History Reported Home Medications] Active Medications: Generic Name Dose Route Start Last Admin Trade Name Freq PRN Reason Stop Dose Admin Albuterol/Ipratropium 1 ampul 02/04/19 02:00 02/07/19 07:57 Duoneb *Not For Prn Use* IH 1 ampul Q6HRT JOEL Administration Lipase/Protease/Amylase 1 each 02/06/19 15:53 Pancreaze 10,500 Unit FEEDTUBE PRN PRN For Clogged Feeding Tube Arformoterol Tartrate 15 mcg 02/04/19 14:15 02/07/19 07:57 Brovana Nebu IH 15 mcg Q12HRT JOEL Administration Budesonide 0.5 mg 02/04/19 20:00 02/07/19 07:57 Pulmicort IH 0.5 mg Q12HRT JOEL Administration Fentanyl 50 mcg 02/06/19 10:50 Sublimaze IV Q10MIN PRN ANALGESIA Furosemide 40 mg 02/06/19 06:00 02/07/19 05:54 Lasix IV 40 mg 0600,1800 JOEL Administration Hydrophilic Ointment 1 applic 02/06/19 10:50 Vaseline Lip Therapy TP Q2HR PRN Dry Lips Piperacillin Sod/Tazobactam Sod 3.375 gm in 50 mls @ 100 mls/hr 02/04/19 06:00 02/07/19 06:23 Zosyn/Ns 3.375gm/50ml IV 02/08/19 23:59 Infused Q8HR JOEL Infusion Fentanyl Citrate 2,000 mcg in 100 mls @ 2.075 mls/hr 02/06/19 11:00 02/06/19 19:00 Fentanyl Drip Premix IV 1 mcg/kg/hr TITR JOEL 2.075 mls/hr Titration Protocol 1 MCG/KG/HR Potassium Chloride 40 meq/ 1,020 mls @ 75 mls/hr 02/06/19 17:15 02/06/19 19:51 Dextrose IV 75 mls/hr DIRECT JOEL Administration Potassium Phosphate 30 mmol/ 510 mls @ 85 mls/hr 02/07/19 10:00 02/07/19 09:47 Sodium Chloride IV 02/07/19 15:59 85 mls/hr ONCE ONE Administration Methylprednisolone Sodium Succinate 40 mg 02/04/19 15:00 02/07/19 09:41 Solu-Medrol IV 40 mg Q12HR JOEL Administration Morphine Sulfate 2 mg 02/04/19 12:51 02/06/19 02:35 Morphine IV 2 mg Q4H PRN Administration Pain, Moderate (4-6) Multi-Ingred Cream/Lotion/Oil/Oint 1 applic 02/06/19 10:50 Artificial Tears Ophth Oint OU Q4HR PRN Dry Eye(s) Ondansetron HCl 4 mg 02/03/19 20:27 Zofran IV Q8H PRN Nausea And Vomiting Pantoprazole Sodium 40 mg 02/06/19 10:00 02/07/19 09:40 Protonix IV 40 mg QDAY JOEL Administration Simple Syrup 15 ml 02/06/19 15:53 Simple Syrup FEEDTUBE PRN PRN Hypoglycemia Simple Syrup 30 ml 02/06/19 15:53 Simple Syrup FEEDTUBE PRN PRN Hypoglycemia Sodium Bicarbonate 325 mg 02/06/19 15:53 Sodium Bicarbonate FEEDTUBE PRN PRN For Clogged Feeding Tube Sodium Chloride 10 ml 02/03/19 22:00 02/07/19 09:41 Sodium Chloride Flush Syringe 10 Ml IV 10 ml BID JOEL Administration Sodium Chloride 10 ml 02/03/19 20:27 Sodium Chloride Flush Syringe 10 Ml IV PRN PRN LINE FLUSH
[2019-02-07] MEDS: KCL 40 MEQ in D5W 1,000 ML IV SCH (10:39)
[2019-02-07] MEDS ORDERED: SIMPLE SYRUP FEEDTUBE PRN ×2 (14:50)
[2019-02-07] MEDS ORDERED: SODIUM BICARBONATE FEEDTUBE PRN (14:50)
[2019-02-07] MEDS ORDERED: PANCREAZE DR 10,500 UNIT FEEDTUBE PRN (14:50)
--- NOTE | 2019-02-07 18:22 | Gastroenterology Progress Note ---
Assessment and Plan GI: presented w/ signs UGI bleed now stable - continue PPI iv - will need EGD - will sign off for now, call when stable Subjective Date of service: 02/07/19 Principal diagnosis: GI bleed Interval history: -no signs bleeding, no GI complaints Objective - Constitutional Vitals: Temp Pulse Resp BP Pulse Ox 98.5 F 80 9 L 112/69 97 02/07/19 08:00 02/07/19 18:10 02/07/19 18:10 02/07/19 18:10 02/07/19 18:10 General appearance: no acute distress - EENT Eyes: PERRL - Respiratory Respiratory: bilateral: rhonchi - Cardiovascular Rhythm: regular Heart Sounds: Present: S1 & S2 - Gastrointestinal General gastrointestinal: Present: soft, non-tender, non-distended - Labs CBC & Chem 7: 02/07/19 05:27 02/07/19 05:27 Labs: Laboratory Results - last 24 hr 02/03/19 02/07/19 02/07/19 18:06 04:26 05:27 WBC 21.7 H RBC 4.02 Hgb 11.1 Hct 33.8 MCV 84 MCH 28 MCHC 33 RDW 17.6 H Plt Count 146 Add Manual Diff Complete Total Counted 100 Seg Neutrophils % Rolled Ham Lacer Seg Neuts % (Manual) 98.0 H Band Neutrophils % 0 Lymphocytes % (Manual) 1.0 L Reactive Lymphs % (Man) 0 Monocytes % (Manual) 1.0 Eosinophils % (Manual) 0 Basophils % (Manual) 0 Metamyelocytes % 0 Myelocytes % 0 Promyelocytes % 0 Blast Cells % 0 Nucleated RBC % Not Reportable Seg Neutrophils # Man 21.3 H Band Neutrophils # 0.0 Lymphocytes # (Manual) 0.2 L Abs React Lymphs (Man) 0.0 Monocytes # (Manual) 0.2 Eosinophils # (Manual) 0.0 Basophils # (Manual) 0.0 Metamyelocytes # 0.0 Myelocytes # 0.0 Promyelocytes # 0.0 Blast Cells # 0.0 WBC Morphology Not Reportable Hypersegmented Neuts Not Reportable Hyposegmented Neuts Not Reportable Hypogranular Neuts Not Reportable Smudge Cells Not Reportable Toxic Granulation Not Reportable Toxic Vacuolation Not Reportable Dohle Bodies Not Reportable Pelger-Huet Anomaly Not Reportable Fermin Rods Not Reportable Platelet Estimate Consistent w auto Clumped Platelets Not Reportable Plt Clumps, EDTA Not Reportable Large Platelets Not Reportable Giant Platelets Not Reportable Platelet Satelliting Not Reportable Plt Morphology Comment Not Reportable RBC Morphology Not Reportable Dimorphic RBCs Not Reportable Polychromasia Not Reportable Hypochromasia Not Reportable Poikilocytosis Few Anisocytosis Few Microcytosis Not Reportable Macrocytosis Not Reportable Spherocytes Not Reportable Pappenheimer Bodies Not Reportable Sickle Cells Not Reportable Target Cells Not Reportable Tear Drop Cells Not Reportable Ovalocytes Not Reportable Helmet Cells Not Reportable Sharp-[place] Bodies Not Reportable [place] Rings Not Reportable [place] Cells Not Reportable Bite Cells Not Reportable Crenated Cell Not Reportable Elliptocytes Not Reportable Acanthocytes (Spur) Not Reportable Rouleaux Not Reportable Hemoglobin C Crystals Not Reportable Schistocytes Not Reportable Malaria parasites Not Reportable Kend[place] Bodies Not Reportable Hem Pathologist Commnt No POC ABG pH 7.481 H POC ABG pCO2 31.3 L POC ABG pO2 50 L POC ABG HCO3 23.4 POC ABG Total CO2 24 POC ABG O2 Sat 88 POC ABG Base Excess 0 FiO2 40 Sodium Potassium Chloride Carbon Dioxide Anion Gap BUN Creatinine Estimated GFR BUN/Creatinine Ratio Glucose POC Glucose Calcium Phosphorus Magnesium Crossmatch See Detail 02/07/19 02/07/19 05:27 05:29 WBC RBC Hgb Hct MCV MCH MCHC RDW Plt Count Add Manual Diff Total Counted Seg Neutrophils % Seg Neuts % (Manual) Band Neutrophils % Lymphocytes % (Manual) Reactive Lymphs % (Man) Monocytes % (Manual) Eosinophils % (Manual) Basophils % (Manual) Metamyelocytes % Myelocytes % Promyelocytes % Blast Cells % Nucleated RBC % Seg Neutrophils # Man Band Neutrophils # Lymphocytes # (Manual) Abs React Lymphs (Man) Monocytes # (Manual) Eosinophils # (Manual) Basophils # (Manual) Metamyelocytes # Myelocytes # Promyelocytes # Blast Cells # WBC Morphology Hypersegmented Neuts Hyposegmented Neuts Hypogranular Neuts Smudge Cells Toxic Granulation Toxic Vacuolation Dohle Bodies Pelger-Huet Anomaly Fermin Rods Platelet Estimate Clumped Platelets Plt Clumps, EDTA Large Platelets Giant Platelets Platelet Satelliting Plt Morphology Comment RBC Morphology Dimorphic RBCs Polychromasia Hypochromasia Poikilocytosis Anisocytosis Microcytosis Macrocytosis Spherocytes Pappenheimer Bodies Sickle Cells Target Cells Tear Drop Cells Ovalocytes Helmet Cells Sharp-Del[place] Bodies [place] Rings [place] Cells Bite Cells Crenated Cell Elliptocytes Acanthocytes (Spur) Rouleaux Hemoglobin C Crystals Schistocytes Malaria parasites Kendall Bodies Hem Pathologist Commnt POC ABG pH POC ABG pCO2 POC ABG pO2 POC ABG HCO3 POC ABG Total CO2 POC ABG O2 Sat POC ABG Base Excess FiO2 Sodium 147 H Potassium 3.9 Chloride 108.4 H Carbon Dioxide 26 Anion Gap 17 BUN 16 Creatinine 0.6 L Estimated GFR > 60 BUN/Creatinine Ratio 27 Glucose 184 H POC Glucose 188 H Calcium 8.3 L Phosphorus 1.50 L Magnesium 1.90 Crossmatch
[2019-02-07] MEDS: fentaNYL DRIP Premix 2,000 MCG/100 ML BAG IV SCH (21:21)
[2019-02-08] MEDS: KCL 40 MEQ in D5W 1,000 ML IV SCH (00:12)
--- NOTE | 2019-02-08 02:29 | XRay Report ---
PROCEDURE: XR CHEST 1V AP TECHNIQUE: Chest radiograph single view. HISTORY: follow up respiratory failure COMPARISONS: February 07, 2019 . FINDINGS: Heart: Normal. Mediastinum/Vessels: Normal. Lungs/Pleural space: Vascular congestion with scattered infiltrates in both lungs especially the rig ht upper and left lower lungs. No effusion or pneumothorax. Bony thorax: No acute osseous abnormality. Life support devices: The endotracheal tube ends 3 cm above the joanne. A nasogastric tube ends below the hemidiaphragms.. IMPRESSION: Vascular congestion with scattered infiltrates in both lungs especially the right upper and left lower lungs. No effusion or pneumothorax. The endotracheal tube and nasogastric tube are pro perly positioned.. This document is electronically signed by Helen Adams DO., Feb 08 2019 02:27:30 AM ET
[2019-02-08] MEDS: DUONEB *Not for PRN Use IH SCH ×4 (03:03→20:25)
[2019-02-08 04:54] LABS: Mean Corpuscular HGB Conc 32 % (30-34); Mean Corpuscular Volume 85 fl (79-97); Red Blood Count 3.99 M/mm3 (3.65-5.03); Red Cell Distribution Width 17.7 % (13.2-15.2)
[2019-02-08 05:08] LABS: BUN/Creatinine Ratio 32; Blood Urea Nitrogen 19 mg/dL (7-17); Calcium 8.2 mg/dL (8.4-10.2)
[2019-02-08 05:09] LABS: Hemolysis Index 34
[2019-02-08 06:06] LABS: Platelet Count TNR K/mm3 (140-440)
[2019-02-08] MEDS: ZOSYN/NS 3.375GM/50ML 3.375 GM/50 ML BAG IV SCH ×3 (06:35→21:25)
[2019-02-08] MEDS: LASIX IV SCH ×2 (06:35→17:46)
--- NOTE | 2019-02-08 08:12 | Progress Note ---
Assessment and Plan 1. Hypernatremia: High sodium is likely from diuretics. Sodium level is improving. Will stop IV D5W. Monitor Sodium level. 2. FEN: Volume overload, on IV Lasix. Monitor lytes. 3. Respiratory failure: COPD exacerbation. On vent. 4. Suspected GI bleed: Followed by GI. 5. Leukocytosis. Subjective Date of service: 02/08/19 Principal diagnosis: GI bleed Interval history: Patient was seen and examined at the bedside. at the bedside. Objective - Vital Signs Vital signs: Vital Signs - 12hr 02/07/19 02/07/19 02/07/19 21:00 22:00 22:08 Temperature Pulse Rate 96 H 86 82 Pulse Rate [ Bilateral] Pulse Rate [ From Monitor] Respiratory 20 14 11 L Rate Respiratory Rate [Bilateral ] Blood Pressure 126/85 112/74 112/74 O2 Sat by Pulse 96 98 Oximetry 02/07/19 02/07/19 02/08/19 23:00 23:40 00:00 Temperature Pulse Rate 103 H 87 86 Pulse Rate [ Bilateral] Pulse Rate [ 73 From Monitor] Respiratory 11 L 9 L Rate Respiratory Rate [Bilateral ] Blood Pressure 112/74 130/85 135/90 O2 Sat by Pulse 98 99 97 Oximetry 02/08/19 02/08/19 02/08/19 01:00 02:00 03:00 Temperature Pulse Rate 94 H 87 80 Pulse Rate [ Bilateral] Pulse Rate [ From Monitor] Respiratory 10 L 10 L 9 L Rate Respiratory Rate [Bilateral ] Blood Pressure 135/90 135/90 126/81 O2 Sat by Pulse 97 97 Oximetry 02/08/19 02/08/19 02/08/19 03:04 03:19 04:00 Temperature Pulse Rate 83 Pulse Rate [ 105 H 83 Bilateral] Pulse Rate [ 78 From Monitor] Respiratory 9 L Rate Respiratory 20 20 Rate [Bilateral ] Blood Pressure 126/81 O2 Sat by Pulse 98 Oximetry 02/08/19 02/08/19 02/08/19 04:27 05:00 06:00 Temperature Pulse Rate 99 H 81 91 H Pulse Rate [ Bilateral] Pulse Rate [ From Monitor] Respiratory 9 L 11 L Rate Respiratory Rate [Bilateral ] Blood Pressure 135/87 131/82 132/87 O2 Sat by Pulse 98 98 Oximetry 02/08/19 02/08/19 07:00 08:00 Temperature 97.5 F L Pulse Rate 95 H 82 Pulse Rate [ Bilateral] Pulse Rate [ From Monitor] Respiratory 12 9 L Rate Respiratory Rate [Bilateral ] Blood Pressure 127/87 128/79 O2 Sat by Pulse 98 97 Oximetry - General Appearance General appearance: well-developed, appears stated age, sedated on ventilator, intubated EENT: ATNC, PERRL Neck: supple Respiratory: Present: Clear to Ascultation Cardiology: regular, S1S2, no murmurs Gastrointestinal: normoactive bowel sounds, no tenderness, no distended Integumentary: no rash, warm and dry Neurologic: obtunded Musculoskeletal: other (no edema) - Lab 02/10/19 04:59 02/10/19 04:59 Most recent lab results Calcium 8.2 mg/dL (8.4-10.2) L 02/08/19 04:26 Phosphorus 2.50 mg/dL (2.5-4.5) D 02/08/19 04:26 Magnesium 1.90 mg/dL (1.7-2.3) 02/07/19 05:27 Medications & Allergies - Medications Allergies/Adverse Reactions: Allergies No Known Allergies Allergy (Unverified 02/03/19 18:28) Home Medications: Home Medications Medication Instructions Recorded Confirmed Last Taken Type No Known Home Medications [No 02/07/19 02/07/19 Unknown History Reported Home Medications] Active Medications: Generic Name Dose Route Start Last Admin Trade Name Freq PRN Reason Stop Dose Admin Albuterol/Ipratropium 1 ampul 02/04/19 02:00 02/08/19 03:03 Duoneb *Not For Prn Use* IH 1 ampul Q6HRT JOEL Administration Lipase/Protease/Amylase 1 each 02/06/19 15:53 Pancreazallan Smith 10,500 Unit FEEDTUBE PRN PRN For Clogged Feeding Tube Arformoterol Tartrate 15 mcg 02/04/19 14:15 02/07/19 19:49 Brovana Nebu IH 15 mcg Q12HRT JOEL Administration Budesonide 0.5 mg 02/04/19 20:00 02/07/19 19:49 Pulmicort IH 0.5 mg Q12HRT JOEL Administration Fentanyl 50 mcg 02/06/19 10:50 Sublimaze IV Q10MIN PRN ANALGESIA Furosemide 40 mg 02/06/19 06:00 02/08/19 06:35 Lasix IV 40 mg 0600,1800 JOEL Administration Hydrophilic Ointment 1 applic 02/06/19 10:50 Vaseline Lip Therapy TP Q2HR PRN Dry Lips Piperacillin Sod/Tazobactam Sod 3.375 gm in 50 mls @ 100 mls/hr 02/04/19 06:00 02/08/19 06:35 Zosyn/Ns 3.375gm/50ml IV 02/08/19 23:59 100 mls/hr Q8HR JOEL Administration Fentanyl Citrate 2,000 mcg in 100 mls @ 2.075 mls/hr 02/06/19 11:00 02/07/19 21:21 Fentanyl Drip Premix IV 1 mcg/kg/hr TITR JOEL 2.075 mls/hr Administration Protocol 1 MCG/KG/HR Potassium Chloride 40 meq/ 1,020 mls @ 75 mls/hr 02/06/19 17:15 02/08/19 00:12 Dextrose IV 75 mls/hr DIRECT JOEL Administration Lansoprazole 30 mg 02/08/19 10:00 Prevacid Solutab FEEDTUBE QDAY JOEL Methylprednisolone Sodium Succinate 40 mg 02/04/19 15:00 02/07/19 21:22 Solu-Medrol IV 40 mg Q12HR JOEL Administration Morphine Sulfate 2 mg 02/04/19 12:51 02/06/19 02:35 Morphine IV 2 mg Q4H PRN Administration Pain, Moderate (4-6) Multi-Ingred Cream/Lotion/Oil/Oint 1 applic 02/06/19 10:50 Artificial Tears Ophth Oint OU Q4HR PRN Dry Eye(s) Ondansetron HCl 4 mg 02/03/19 20:27 Zofran IV Q8H PRN Nausea And Vomiting Simple Syrup 15 ml 02/06/19 15:53 Simple Syrup FEEDTUBE PRN PRN Hypoglycemia Simple Syrup 30 ml 02/06/19 15:53 Simple Syrup FEEDTUBE PRN PRN Hypoglycemia Sodium Bicarbonate 325 mg 02/06/19 15:53 Sodium Bicarbonate FEEDTUBE PRN PRN For Clogged Feeding Tube Sodium Chloride 10 ml 02/03/19 22:00 02/07/19 21:22 Sodium Chloride Flush Syringe 10 Ml IV 10 ml BID JOEL Administration Sodium Chloride 10 ml 05/19/19 20:27 Sodium Chloride Flush Syringe 10 Ml IV PRN PRN LINE FLUSH
[2019-02-08] MEDS: BROVANA NEBU IH SCH ×2 (08:24→20:26)
[2019-02-08] MEDS: PULMICORT IH SCH ×2 (08:24→20:24)
--- NOTE | 2019-02-08 09:24 | Progress Note ---
Assessment and Plan Assessment and plan: 1. Acute encephalopathy, 2. Acute hypoxic respiratory failure with Severe respiratory alkalosis - s/p intubation 02/06 3. Acute GI bleed, possible PUD 4. Acute blood loss anemia (due to #2) 5. Hypokalemia, cont replete 6. CHF with acute exacerbation ( EF 20-25%) 7. SIRS, source of infection unclear 8. Severe protein calorie malnutrition 9. Hypernatremia, low volume hypotonic fluid Plan: Monitor at ICU Now intubated, was on BIPAP monitor with serial XRY and abg, cont nebs Consulted GI for acute GI bleed, s/p 5 units of packed RBCs monitor h/h, place on iv lasix Avoid NSAIDs, follow Cx, iv abx, BMP in the a.m. replete electrolytes, consulted dietary for TF No chemical DVT prophylaxis (GI bleed) The high probability of a clinically significant, sudden or life threatening deterioration of the [multiple] system(s) required my full and direct attention, intervention and personal management. The aggregate critical care time was [33] minutes. This time is in addition to time spent performing reported procedures but includes the following: [x] Data Review and interpretation [x] Patient assessment and monitoring of vital signs [x] Documentation [x] Medication orders and management History Interval history: Intubated for worsening shortness of breath no fever no adverse events overnight Hospitalist Physical - Physical exam Narrative exam: Gen: Intubated, malnourished HEENT: Normocephalic, atraumatic Neck: supple, no JVD Heart: S1 and S2 reg, no murmurs, rubs or gallop Lungs: Clear, no crackles, no wheeze Abd: soft, non tender, non distended, normal BS Ext: No edema, no clubbing, no cyanosis, Neuro: Intubated, sedated - Constitutional Vitals: Temp Pulse Resp BP Pulse Ox 97.5 F L 83 20 128/79 98 02/08/19 08:00 02/08/19 08:24 02/08/19 08:24 02/08/19 08:00 02/08/19 08:00 General appearance: Present: cachectic Results - Labs CBC & Chem 7: 02/08/19 04:26 02/08/19 04:26 Labs: Laboratory Last Values WBC 18.8 K/mm3 (4.5-11.0) H 02/08/19 04:26 RBC 3.99 M/mm3 (3.65-5.03) 02/08/19 04:26 Hgb 11.0 gm/dl (10.1-14.3) 02/08/19 04:26 Hct 34.0 % (30.3-42.9) 02/08/19 04:26 MCV 85 fl (79-97) 02/08/19 04:26 MCH 28 pg (28-32) 02/08/19 04:26 MCHC 32 % (30-34) 02/08/19 04:26 RDW 17.7 % (13.2-15.2) H 02/08/19 04:26 Plt Count TNR 02/08/19 04:26 Lymph % (Auto) 17.6 % (13.4-35.0) 02/03/19 18:06 [place] % (Auto) 10.1 % (0.0-7.3) H 02/03/19 18:06 Eos % (Auto) 0.1 % (0.0-4.3) 02/03/19 18:06 Baso % (Auto) 1.0 % (0.0-1.8) 02/03/19 18:06 Lymph # 1.1 K/mm3 (1.2-5.4) L 02/03/19 18:06 [place]y # 0.6 K/mm3 (0.0-0.8) 02/03/19 18:06 Eos # 0.0 K/mm3 (0.0-0.4) 02/03/19 18:06 Baso # 0.1 K/mm3 (0.0-0.1) 02/03/19 18:06 Add Manual Diff Complete 02/07/19 05:27 Total Counted 100 02/07/19 05:27 Seg Neutrophils % Software Administrator 02/07/19 05:27 Seg Neuts % (Manual) 98.0 % (40.0-70.0) H 02/07/19 05:27 0 % 02/07/19 05:27 1.0 % (13.4-35.0) L 02/07/19 05:27 Reactive Lymphs % (Man) 0 % 02/07/19 05:27 1.0 % (0.0-7.3) 02/07/19 05:27 0 % (0.0-4.3) 02/07/19 05:27 0 % (0.0-1.8) 02/07/19 05:27 0 % 02/07/19 05:27 0 % 02/07/19 05:27 0 % 02/07/19 05:27 0 % 02/07/19 05:27 Nucleated RBC % Not Reportable 02/07/19 05:27 Seg Neutrophils # 4.5 K/mm3 (1.8-7.7) 02/03/19 18:06 Seg Neutrophils # Man 21.3 K/mm3 (1.8-7.7) H 02/07/19 05:27 Band Neutrophils # 0.0 K/mm3 02/07/19 05:27 0.2 K/mm3 (1.2-5.4) L 02/07/19 05:27 Abs React Lymphs (Man) 0.0 K/mm3 02/07/19 05:27 0.2 K/mm3 (0.0-0.8) 02/07/19 05:27 0.0 K/mm3 (0.0-0.4) 02/07/19 05:27 0.0 K/mm3 (0.0-0.1) 02/07/19 05:27 0.0 K/mm3 02/07/19 05:27 0.0 K/mm3 02/07/19 05:27 0.0 K/mm3 02/07/19 05:27 Blast Cells # 0.0 K/mm3 02/07/19 05:27 WBC Morphology Not Reportable 02/07/19 05:27 Hypersegmented Neuts Not Reportable 02/07/19 05:27 Hyposegmented Neuts Not Reportable 02/07/19 05:27 Hypogranular Neuts Not Reportable 02/07/19 05:27 Not Reportable 02/07/19 05:27 Not Reportable 02/07/19 05:27 Not Reportable 02/07/19 05:27 Not Reportable 02/07/19 05:27 Not Reportable 02/07/19 05:27 Not Reportable 02/07/19 05:27 Consistent w auto 02/07/19 05:27 Not Reportable 02/07/19 05:27 Plt Clumps, EDTA Not Reportable 02/07/19 05:27 Not Reportable 02/07/19 05:27 Not Reportable 02/07/19 05:27 Not Reportable 02/07/19 05:27 Plt Morphology Comment Not Reportable 02/07/19 05:27 RBC Morphology Not Reportable 02/07/19 05:27 Dimorphic RBCs Not Reportable 02/07/19 05:27 Not Reportable 02/07/19 05:27 Not Reportable 02/07/19 05:27 Few 02/07/19 05:27 Few 02/07/19 05:27 Not Reportable 02/07/19 05:27 Not Reportable 02/07/19 05:27 Not Reportable 02/07/19 05:27 Not Reportable 02/07/19 05:27 Not Reportable 02/07/19 05:27 Not Reportable 02/07/19 05:27 Not Reportable 02/07/19 05:27 Not Reportable 02/07/19 05:27 Not Reportable 02/07/19 05:27 Not Reportable 02/07/19 05:27 Not Reportable 02/07/19 05:27 Not Reportable 02/07/19 05:27 Not Reportable 02/07/19 05:27 Not Reportable 02/07/19 05:27 Not Reportable 02/07/19 05:27 Acanthocytes (Spur) Not Reportable 02/07/19 05:27 Rouleaux Not Reportable 02/07/19 05:27 Not Reportable 02/07/19 05:27 Not Reportable 02/07/19 05:27 Not Reportable 02/07/19 05:27 Not Reportable 02/07/19 05:27 Hem Pathologist Commnt No 02/07/19 05:27 PT 19.3 Sec. (12.2-14.9) H 02/03/19 19:24 INR 1.52 (0.87-1.13) H 02/03/19 19:24 APTT 30.3 Sec. (24.2-36.6) 02/03/19 19:24 POC ABG pH 7.447 (7.35-7.45) 02/08/19 04:32 POC ABG pCO2 36.3 (35-45) 02/08/19 04:32 POC ABG pO2 92 (80-105) 02/08/19 04:32 POC ABG HCO3 25.0 (22-26 mml/L) 02/08/19 04:32 POC ABG Total CO2 26 (23-27mmol/L) 02/08/19 04:32 POC ABG O2 Sat 98 02/08/19 04:32 POC ABG Base Excess 1 ((-2) - (+3)mmol/L) 02/08/19 04:32 40 % 02/08/19 04:32 Sodium 140 mmol/L (137-145) 02/08/19 04:26 Potassium 4.9 mmol/L (3.6-5.0) D 02/08/19 04:26 Chloride 104.4 mmol/L (98-107) 02/08/19 04:26 Carbon Dioxide 25 mmol/L (22-30) 02/08/19 04:26 16 mmol/L 02/08/19 04:26 BUN 19 mg/dL (7-17) H 02/08/19 04:26 0.6 mg/dL (0.7-1.2) L 02/08/19 04:26 Estimated GFR > 60 ml/min 02/08/19 04:26 32 % 02/08/19 04:26 Glucose 190 mg/dL (65-100) H 02/08/19 04:26 POC Glucose 172 (70-105) H 02/07/19 23:07 Lactic Acid 1.70 mmol/L (0.7-2.0) 02/05/19 04:41 Calcium 8.2 mg/dL (8.4-10.2) L 02/08/19 04:26 Phosphorus 2.50 mg/dL (2.5-4.5) D 02/08/19 04:26 Magnesium 1.90 mg/dL (1.7-2.3) 02/07/19 05:27 0.30 mg/dL (0.1-1.2) 02/03/19 18:08 AST 35 units/L (5-40) 02/03/19 18:08 ALT 27 units/L (7-56) 02/03/19 18:08 117 units/L (35-129) 02/03/19 18:08 0.139 ng/mL (0.00-0.029) H* 02/03/19 19:24 9.30 mg/dL (0.00-1.30) H 02/04/19 17:07 NT-Pro-B Natriuret Pep 9160 pg/mL (0-900) H 02/03/19 18:06 5.1 g/dL (6.3-8.2) L 02/03/19 18:08 2.8 g/dL (3.9-5) L 02/03/19 18:08 1.2 % 02/03/19 18:08 Triglycerides 164 mg/dL (2-149) H 02/03/19 18:08 Cholesterol 125 mg/dL (50-199) 02/03/19 18:08 75 mg/dL (50-130) 02/03/19 18:08 31 mg/dL (40-59) L 02/03/19 18:08 4.03 % 02/03/19 18:08 Yellow (Yellow) 02/03/19 02:57 Clear (Clear) 02/03/19 02:57 6.0 (5.0-7.0) 02/03/19 02:57 Ur Specific [place] 1.011 (1.003-1.030) 02/03/19 02:57 <15 mg/dl mg/dL (Negative) 02/03/19 02:57 Neg mg/dL (Negative) 02/03/19 02:57 Neg mg/dL (Negative) 02/03/19 02:57 Neg (Negative) 02/03/19 02:57 Neg (Negative) 02/03/19 02:57 Neg (Negative) 02/03/19 02:57 < 2.0 mg/dL (<2.0) 02/03/19 02:57 Ur Leukocyte Esterase Neg (Negative) 02/03/19 02:57 7.0 /HPF (0.0-6.0) H 02/03/19 02:57 8.0 /HPF (0.0-6.0) 02/03/19 02:57 U Epithel Cells (Auto) 1.0 /HPF (0-13.0) 02/03/19 02:57 2+ /HPF (Negative) 02/03/19 02:57 Hyaline Casts 22 /LPF 02/03/19 02:57 3+ /HPF 02/03/19 02:57 Blood Type A POSITIVE 02/03/19 18:06 Antibody Screen Negative 02/03/19 18:06 Crossmatch See Detail 02/03/19 18:06 Active Medications - Current Medications Current Medications: Generic Name Dose Route Start Last Admin Trade Name Freq PRN Reason Stop Dose Admin Albuterol/Ipratropium 1 ampul 02/04/19 02:00 02/08/19 08:24 Duoneb *Not For Prn Use* IH Not Given Q6HRT JOEL Lipase/Protease/Amylase 1 each 02/06/19 15:53 Pancreaze 10,500 Unit FEEDTUBE PRN PRN For Clogged Feeding Tube Arformoterol Tartrate 15 mcg 02/04/19 14:15 02/08/19 08:24 Brovana Nebu IH 15 mcg Q12HRT JOEL Administration Budesonide 0.5 mg 02/04/19 20:00 02/08/19 08:24 Pulmicort IH 0.5 mg Q12HRT JOEL Administration Fentanyl 50 mcg 02/06/19 10:50 Sublimaze IV Q10MIN PRN ANALGESIA Furosemide 40 mg 02/06/19 06:00 02/08/19 06:35 Lasix IV 40 mg 0600,1800 JOEL Administration Hydrophilic Ointment 1 applic 02/06/19 10:50 Vaseline Lip Therapy TP Q2HR PRN Dry Lips Piperacillin Sod/Tazobactam Sod 3.375 gm in 50 mls @ 100 mls/hr 02/04/19 06:00 02/08/19 06:35 Zosyn/Ns 3.375gm/50ml IV 02/08/19 23:59 100 mls/hr Q8HR JOEL Administration Fentanyl Citrate 2,000 mcg in 100 mls @ 2.075 mls/hr 02/06/19 11:00 02/07/19 21:21 Fentanyl Drip Premix IV 1 mcg/kg/hr TITR JOEL 2.075 mls/hr Administration Protocol 1 MCG/KG/HR Lansoprazole 30 mg 02/08/19 10:00 Prevacid Solutab FEEDTUBE QDAY JOEL Methylprednisolone Sodium Succinate 40 mg 02/04/19 15:00 02/07/19 21:22 Solu-Medrol IV 40 mg Q12HR JOEL Administration Morphine Sulfate 2 mg 02/04/19 12:51 02/06/19 02:35 Morphine IV 2 mg Q4H PRN Administration Pain, Moderate (4-6) Multi-Ingred Cream/Lotion/Oil/Oint 1 applic 02/06/19 10:50 Artificial Tears Ophth Oint OU Q4HR PRN Dry Eye(s) Ondansetron HCl 4 mg 02/03/19 20:27 Zofran IV Q8H PRN Nausea And Vomiting Simple Syrup 15 ml 02/06/19 15:53 Simple Syrup FEEDTUBE PRN PRN Hypoglycemia Simple Syrup 30 ml 02/06/19 15:53 Simple Syrup FEEDTUBE PRN PRN Hypoglycemia Sodium Bicarbonate 325 mg 02/06/19 15:53 Sodium Bicarbonate FEEDTUBE PRN PRN For Clogged Feeding Tube Sodium Chloride 10 ml 02/03/19 22:00 02/07/19 21:22 Sodium Chloride Flush Syringe 10 Ml IV 10 ml BID JOEL Administration Sodium Chloride 10 ml 02/03/19 20:27 Sodium Chloride Flush Syringe 10 Ml IV PRN PRN LINE FLUSH Nutrition/Malnutrition Assess - Dietary Evaluation Nutrition/Malnutrition Findings: Nutrition Notes Start: 02/04/19 14:37 Freq: Status: Active Protocol: Document 02/07/19 14:46 RM (Rec: 02/07/19 14:50 RM [id number]) Nutrition Notes Initial or Follow up Reassessment Current Diagnosis COPD,Heart Failure Other Pertinent Diagnosis AMS Current Diet Vital 1.2 at 50 ml/hr Labs/Tests Na 147 Pertinent Medications Lasix, Solu-Medrol Height 5 ft 3 in Weight 39.8 kg [place] Body Weight (kg) 52.27 BMI 15.5 Subjective/Other Information During rounds MD requested increase of water flush to address hypernatremia. Burn Absent Trauma Absent #1 Nutrition Diagnosis Inadequate oral intake Diagnosis Progress(for reassessment Continues documentation) Is patient on ventilator? No Is Patient Ambulatory and/or Out of Bed No REE-([place]-confined to bed) 1070.796 Kcal/Kg value to use for calculation 32 Approximate Energy Requirements Using 1274 kcal/Kg Calculation Used for Recommendations Kcal/kg Additional Notes Protein Needs: 50-83g (1.2-2g/ kg) Fluid Needs: 1 ml/kcal Nutrition Intervention Nutrition Support: Vital 1.2 at 50 ml/hr. Water flush of 150 mls q 4 hrs until hypernatremia resolves. Water flush of 80 mls q 4 hrs once hypernatremia resolves. Kcal 1,440 Protein (gm) 90 Fluid (mL) 973 Goal #1 TF tolerance Goal #2 Meet at least 80% of calorie and protein needs via TF Anticipated Discharge Needs: Unable to determine at this time Follow-Up By: 02/08/19 Additional Comments Follow for new TF, Na lab
[2019-02-08] MEDS: PREVACID SOLUTAB FEEDTUBE SCH (09:46)
[2019-02-08] MEDS: SOLU-Medrol IV SCH ×2 (09:46→21:24)
[2019-02-08] MEDS: fentaNYL DRIP Premix 2,000 MCG/100 ML BAG IV SCH (11:09)
--- NOTE | 2019-02-08 12:04 | Progress Note ---
Assessment and Plan Severe Sepsis with Shock Acute hypoxemic respiratory failure, on MVS Symptomatic anemia with positive stool guaiac. Acute chronic obstructive pulmonary disease exacerbation. Possible acute gastrointestinal bleed. Acute congestive heart failure exacerbation. Hypokalemia. Elevated serum troponin. Adult failure to thrive. -Continue full MVS, -Quick steroid taper in view of heart failure -Adjust minute ventilation for better acid-base -Wean supplemental oxygen to keep O2 sats 88-90% -Lung protective strategies -Oxygen restrictive strategies -Daily ABGs/CXR -Follow tracheal aspirate cultures -VAP bundle addressed -Diuresis as tolerated by hemodynamics. Monitor renal indices closely -Avoid nephrotoxic agents, adjust all medications for CrCL -Strict intake and output monitoring -Daily SAT's & SBT's, once gas-exchange is adequate, and on minimal ventilatory support -Sedation target for RASS 0 to -1 -Stress ulcer prophylaxis -VTE prophylaxis -Nutrition consult for tube feedings -Aspiration precautions -Accuchecks with glycemic control. Target glucose of 140-180 mg/dL -Bronchodilators with pulmonary hygiene per RT -Maintenance of sleep -wake cycle -Mobility as tolerated by hemodynamics -Influenza and pneumonia vaccination per protocol ..care plan discussed at length with RN/RT at the bedside -updated her who was at the bedside PROGNOSIS: GUARDED CONDITION: CRITICAL CODE STATUS: FULL CODE The high probability of a clinically significant, sudden or life-threatening deterioration of the [respiratory, cardiovascular] system(s) required my full and direct attention, intervention and personal management. The aggregate critical care time was [35] minutes without overlap. Time includes spent on; [x] Data Review and interpretation [x] Patient assessment and monitoring of vital signs [x] Documentation [x] Medication orders and management PROGNOSIS: GUARDED CONDITION: CRITICAL CODE STATUS: FULL CODE The high probability of a clinically significant, sudden or life-threatening deterioration of the [respiratory, neurology, renal] system(s) required my full and direct attention, intervention and personal management. The aggregate critical care time was [35] minutes without overlap. Time includes spent on; [x] Data Review and interpretation [x] Patient assessment and monitoring of vital signs [x] Documentation [x] Medication orders and management Subjective Date of service: 02/08/19 Principal diagnosis: GI bleed Interval history: Patient is seen today for: Acute hypoxemic Resp failure om MVS; Symptomatic anemia; AE-COPD; G.I. Bleed; Acute congestive heart failure exacerbation; Hypotension; SIRS Seen and examined at bedside; 24-hour events reviewed; nursing and respiratory care staff consulted; no adverse overnight events reported to me; No reported fevers, no chills, sedated. On full mechanical ventilator support, at the bedside. Vitals, labs, medications, chart and imaging reviewed. Objective - Exam Narrative Exam: Gen: Intubated,chronically ill looking, no patient-ventilator dyssynchrony Thin, Small bowel feeding tube in nares ETT at 23cm at the lip, sedated HEENT: Normocephalic, atraumatic Neck: supple, no JVD Heart: S1 and S2 reg, no murmurs, rubs or gallop Lungs: Diminished AE bilaterally, Clear, no crackles, no wheeze Abd: soft, non tender, non distended, normal BS Ext: No edema, no clubbing, no cyanosis, Neuro: Intubated, sedated, but opens eyes to verbal adn tactile stimuli Vital Signs - 12hr 02/08/19 02/08/19 02/08/19 01:00 02:00 03:00 Temperature Pulse Rate 94 H 87 80 Pulse Rate [ Anterior Bilateral Throughout] Pulse Rate [ Bilateral] Pulse Rate [ From Monitor] Respiratory 10 L 10 L 9 L Rate Respiratory Rate [Anterior Bilateral Throughout] Respiratory Rate [Bilateral ] Blood Pressure 135/90 135/90 126/81 O2 Sat by Pulse 97 97 Oximetry 02/08/19 02/08/19 02/08/19 03:04 03:19 04:00 Temperature Pulse Rate 83 Pulse Rate [ Anterior Bilateral Throughout] Pulse Rate [ 105 H 83 Bilateral] Pulse Rate [ 78 From Monitor] Respiratory 9 L Rate Respiratory Rate [Anterior Bilateral Throughout] Respiratory 20 20 Rate [Bilateral ] Blood Pressure 126/81 O2 Sat by Pulse 98 Oximetry 02/08/19 02/08/19 02/08/19 04:27 05:00 06:00 Temperature Pulse Rate 99 H 81 91 H Pulse Rate [ Anterior Bilateral Throughout] Pulse Rate [ Bilateral] Pulse Rate [ From Monitor] Respiratory 9 L 11 L Rate Respiratory Rate [Anterior Bilateral Throughout] Respiratory Rate [Bilateral ] Blood Pressure 135/87 131/82 132/87 O2 Sat by Pulse 98 98 Oximetry 02/08/19 02/08/19 02/08/19 07:00 08:00 08:24 Temperature 97.5 F L Pulse Rate 95 H 82 Pulse Rate [ 83 Anterior Bilateral Throughout] Pulse Rate [ Bilateral] Pulse Rate [ 78 From Monitor] Respiratory 12 9 L Rate Respiratory 20 Rate [Anterior Bilateral Throughout] Respiratory Rate [Bilateral ] Blood Pressure 127/87 128/79 O2 Sat by Pulse 98 97 Oximetry 02/08/19 02/08/19 02/08/19 08:30 09:00 10:00 Temperature Pulse Rate 82 81 81 Pulse Rate [ Anterior Bilateral Throughout] Pulse Rate [ Bilateral] Pulse Rate [ From Monitor] Respiratory 10 L 9 L Rate Respiratory Rate [Anterior Bilateral Throughout] Respiratory Rate [Bilateral ] Blood Pressure 132/84 132/84 133/81 O2 Sat by Pulse 99 100 97 Oximetry 02/08/19 02/08/19 10:35 11:00 Temperature Pulse Rate 78 91 H Pulse Rate [ Anterior Bilateral Throughout] Pulse Rate [ Bilateral] Pulse Rate [ From Monitor] Respiratory 11 L Rate Respiratory Rate [Anterior Bilateral Throughout] Respiratory Rate [Bilateral ] Blood Pressure 133/81 134/89 O2 Sat by Pulse 98 Oximetry CBC and BMP: 02/10/19 04:59 02/10/19 04:59 ABG, PT/INR, D-dimer: ABG POC ABG pH 7.447 (7.35-7.45) 02/08/19 04:32 POC ABG pCO2 36.3 (35-45) 02/08/19 04:32 POC ABG pO2 92 (80-105) 02/08/19 04:32 POC ABG HCO3 25.0 (22-26 mml/L) 02/08/19 04:32 POC ABG Total CO2 26 (23-27mmol/L) 02/08/19 04:32 POC ABG O2 Sat 98 02/08/19 04:32 PT/INR, D-dimer PT 19.3 Sec. (12.2-14.9) H 02/03/19 19:24 INR 1.52 (0.87-1.13) H 02/03/19 19:24 Abnormal lab findings: Abnormal Labs 02/03/19 02/03/19 02/03/19 02:57 18:06 18:06 WBC RBC 0.88 L Hgb 1.9 L* Hct 7.1 L* MCH 22 L MCHC 27 L RDW 23.3 H Plt Count 489 H [place] % (Auto) 10.1 H Lymph # 1.1 L Seg Neutrophils % 71.2 H Seg Neuts % (Manual) Lymphocytes % (Manual) Seg Neutrophils # Man Lymphocytes # (Manual) PT INR POC ABG pH POC ABG pCO2 POC ABG pO2 Sodium Potassium Chloride Carbon Dioxide BUN Creatinine Glucose POC Glucose Lactic Acid Calcium Phosphorus Troponin T C-Reactive Protein NT-Pro-B Natriuret Pep 9160 H Total Protein Albumin Triglycerides HDL Cholesterol Urine WBC (Auto) 7.0 H Crossmatch 02/03/19 02/03/19 02/03/19 18:06 18:08 18:08 WBC RBC Hgb Hct MCH MCHC RDW Plt Count [place] % (Auto) Lymph # Seg Neutrophils % Seg Neuts % (Manual) Lymphocytes % (Manual) Seg Neutrophils # Man Lymphocytes # (Manual) PT INR POC ABG pH POC ABG pCO2 POC ABG pO2 Sodium Potassium 3.3 L Chloride Carbon Dioxide 17 L BUN Creatinine Glucose POC Glucose Lactic Acid 9.90 H* Calcium 7.9 L Phosphorus Troponin T 0.134 H* C-Reactive Protein NT-Pro-B Natriuret Pep Total Protein 5.1 L Albumin 2.8 L Triglycerides 164 H HDL Cholesterol 31 L Urine WBC (Auto) Crossmatch See Detail 02/03/19 02/03/19 02/03/19 19:24 19:24 19:24 WBC RBC Hgb Hct MCH MCHC RDW Plt Count [place] % (Auto) Lymph # Seg Neutrophils % Seg Neuts % (Manual) Lymphocytes % (Manual) Seg Neutrophils # Man Lymphocytes # (Manual) PT 19.3 H INR 1.52 H POC ABG pH POC ABG pCO2 POC ABG pO2 Sodium Potassium Chloride Carbon Dioxide BUN Creatinine Glucose POC Glucose Lactic Acid 6.30 H* Calcium Phosphorus Troponin T 0.139 H* C-Reactive Protein NT-Pro-B Natriuret Pep Total Protein Albumin Triglycerides HDL Cholesterol Urine WBC (Auto) Crossmatch 02/03/19 02/03/19 02/04/19 20:30 23:36 01:18 WBC RBC Hgb Hct MCH MCHC RDW Plt Count [place] % (Auto) Lymph # Seg Neutrophils % Seg Neuts % (Manual) Lymphocytes % (Manual) Seg Neutrophils # Man Lymphocytes # (Manual) PT INR POC ABG pH 7.515 H POC ABG pCO2 POC ABG pO2 121 H Sodium Potassium Chloride Carbon Dioxide BUN Creatinine Glucose POC Glucose Lactic Acid 6.50 H* 5.70 H* Calcium Phosphorus Troponin T C-Reactive Protein NT-Pro-B Natriuret Pep Total Protein Albumin Triglycerides HDL Cholesterol Urine WBC (Auto) Crossmatch 02/04/19 02/04/19 02/04/19 04:35 04:35 04:35 WBC 17.5 H RBC Hgb Hct MCH 27 L MCHC RDW 15.9 H Plt Count [place] % (Auto) Lymph # Seg Neutrophils % Seg Neuts % (Manual) 96.0 H Lymphocytes % (Manual) 1.0 L Seg Neutrophils # Man 16.8 H Lymphocytes # (Manual) 0.2 L PT INR POC ABG pH POC ABG pCO2 POC ABG pO2 Sodium 147 H Potassium 3.2 L Chloride Carbon Dioxide 21 L BUN Creatinine Glucose 170 H POC Glucose Lactic Acid 3.60 H* Calcium 7.9 L Phosphorus Troponin T C-Reactive Protein NT-Pro-B Natriuret Pep Total Protein Albumin Triglycerides HDL Cholesterol Urine WBC (Auto) Crossmatch 02/04/19 02/04/19 02/04/19 10:59 17:07 17:07 WBC RBC Hgb Hct MCH MCHC RDW Plt Count [place] % (Auto) Lymph # Seg Neutrophils % Seg Neuts % (Manual) Lymphocytes % (Manual) Seg Neutrophils # Man Lymphocytes # (Manual) PT INR POC ABG pH POC ABG pCO2 POC ABG pO2 Sodium Potassium 3.1 L Chloride Carbon Dioxide BUN Creatinine Glucose POC Glucose Lactic Acid 2.30 H* Calcium Phosphorus Troponin T C-Reactive Protein 9.30 H NT-Pro-B Natriuret Pep Total Protein Albumin Triglycerides HDL Cholesterol Urine WBC (Auto) Crossmatch 02/04/19 02/04/19 02/05/19 17:15 21:04 00:05 WBC RBC Hgb Hct MCH MCHC RDW Plt Count [place] % (Auto) Lymph # Seg Neutrophils % Seg Neuts % (Manual) Lymphocytes % (Manual) Seg Neutrophils # Man Lymphocytes # (Manual) PT INR POC ABG pH 7.310 L POC ABG pCO2 POC ABG pO2 68 L Sodium Potassium Chloride Carbon Dioxide BUN Creatinine Glucose POC Glucose Lactic Acid 2.40 H* 2.70 H* Calcium Phosphorus Troponin T C-Reactive Protein NT-Pro-B Natriuret Pep Total Protein Albumin Triglycerides HDL Cholesterol Urine WBC (Auto) Crossmatch 02/05/19 02/05/19 02/05/19 04:41 04:41 12:54 WBC 15.1 H RBC Hgb Hct MCH MCHC RDW 16.6 H Plt Count [place] % (Auto) Lymph # Seg Neutrophils % Seg Neuts % (Manual) 90.0 H Lymphocytes % (Manual) 2.0 L Seg Neutrophils # Man 13.6 H Lymphocytes # (Manual) 0.3 L PT INR POC ABG pH POC ABG pCO2 POC ABG pO2 74 L Sodium 147 H Potassium Chloride 114.1 H Carbon Dioxide 20 L BUN 19 H Creatinine Glucose 192 H POC Glucose Lactic Acid Calcium 7.4 L Phosphorus Troponin T C-Reactive Protein NT-Pro-B Natriuret Pep Total Protein Albumin Triglycerides HDL Cholesterol Urine WBC (Auto) Crossmatch 02/06/19 02/06/19 02/06/19 01:46 11:42 11:42 WBC 21.1 H RBC Hgb Hct MCH MCHC RDW 17.0 H Plt Count [place] % (Auto) Lymph # Seg Neutrophils % Seg Neuts % (Manual) Lymphocytes % (Manual) Seg Neutrophils # Man Lymphocytes # (Manual) PT INR POC ABG pH POC ABG pCO2 34.4 L POC ABG pO2 56 L Sodium 151 H Potassium Chloride 112.1 H Carbon Dioxide BUN Creatinine Glucose 187 H POC Glucose Lactic Acid Calcium 8.1 L Phosphorus Troponin T C-Reactive Protein NT-Pro-B Natriuret Pep Total Protein Albumin Triglycerides HDL Cholesterol Urine WBC (Auto) Crossmatch 02/06/19 02/07/19 02/07/19 12:04 04:26 05:27 WBC 21.7 H RBC Hgb Hct MCH MCHC RDW 17.6 H Plt Count [place] % (Auto) Lymph # Seg Neutrophils % Seg Neuts % (Manual) 98.0 H Lymphocytes % (Manual) 1.0 L Seg Neutrophils # Man 21.3 H Lymphocytes # (Manual) 0.2 L PT INR POC ABG pH 7.481 H POC ABG pCO2 31.3 L POC ABG pO2 63 L 50 L Sodium Potassium Chloride Carbon Dioxide BUN Creatinine Glucose POC Glucose Lactic Acid Calcium Phosphorus Troponin T C-Reactive Protein NT-Pro-B Natriuret Pep Total Protein Albumin Triglycerides HDL Cholesterol Urine WBC (Auto) Crossmatch 02/07/19 02/07/19 02/07/19 05:27 05:29 23:07 WBC RBC Hgb Hct MCH MCHC RDW Plt Count [place] % (Auto) Lymph # Seg Neutrophils % Seg Neuts % (Manual) Lymphocytes % (Manual) Seg Neutrophils # Man Lymphocytes # (Manual) PT INR POC ABG pH POC ABG pCO2 POC ABG pO2 Sodium 147 H Potassium Chloride 108.4 H Carbon Dioxide BUN Creatinine 0.6 L Glucose 184 H POC Glucose 188 H 172 H Lactic Acid Calcium 8.3 L Phosphorus 1.50 L Troponin T C-Reactive Protein NT-Pro-B Natriuret Pep Total Protein Albumin Triglycerides HDL Cholesterol Urine WBC (Auto) Crossmatch 02/08/19 02/08/19 04:26 04:26 WBC 18.8 H RBC Hgb Hct MCH MCHC RDW 17.7 H Plt Count [place] % (Auto) Lymph # Seg Neutrophils % Seg Neuts % (Manual) Lymphocytes % (Manual) Seg Neutrophils # Man Lymphocytes # (Manual) PT INR POC ABG pH POC ABG pCO2 POC ABG pO2 Sodium Potassium Chloride Carbon Dioxide BUN 19 H Creatinine 0.6 L Glucose 190 H POC Glucose Lactic Acid Calcium 8.2 L Phosphorus Troponin T C-Reactive Protein NT-Pro-B Natriuret Pep Total Protein Albumin Triglycerides HDL Cholesterol Urine WBC (Auto) Crossmatch Chest x-ray: image reviewed (Bilateral alveolar infiltrates, RUL and LLL predominant; ETT in postion; Feeding tube)
[2019-02-08] MEDS: MORPHINE IV PRN (15:08)
[2019-02-08] MEDS ORDERED: SODIUM BICARBONATE FEEDTUBE PRN (16:37)
[2019-02-08] MEDS ORDERED: PANCREAZE DR 10,500 UNIT FEEDTUBE PRN (16:37)
[2019-02-08] MEDS ORDERED: SIMPLE SYRUP FEEDTUBE PRN ×2 (16:37)
[2019-02-08] MEDS: SODIUM CHLORIDE FLUSH SYRINGE 10 ML IV SCH (21:26)
--- NOTE | 2019-02-09 02:23 | XRay Report ---
PROCEDURE: XR CHEST 1V AP TECHNIQUE: Chest radiograph single view. HISTORY: follow up respiratory failure COMPARISONS: 02/08/2019 . FINDINGS: Heart: Normal. Mediastinum/Vessels: The lungs aren't congested.. Lungs/Pleural space: There is stable patchy bilateral airspace disease and interstitial edema in bot h lungs.. Bony thorax: No acute osseous abnormality. Life support devices: The ET tube and feeding tube appear in good position.. IMPRESSION: Stable pulmonary congestion with interstitial edema and bottle airspace disease.. This document is electronically signed by Emigdio Anand MD., Feb 09 2019 02:21:47 AM ET
[2019-02-09 05:03] LABS: Hematocrit 39.2 % (30.3-42.9); Mean Corpuscular HGB Conc 33 % (30-34); Mean Corpuscular Volume 84 fl (79-97); Red Blood Count 4.68 M/mm3 (3.65-5.03)
[2019-02-09] MEDS: DUONEB *Not for PRN Use IH SCH ×4 (05:11→19:45)
[2019-02-09 05:14] LABS: BUN/Creatinine Ratio 58; Blood Urea Nitrogen 29 mg/dL (7-17); Calcium 9.4 mg/dL (8.4-10.2); Hemolysis Index 15
[2019-02-09] MEDS: LASIX IV SCH ×2 (05:21→17:17)
[2019-02-09 06:21] LABS: Platelet Count 92 K/mm3 (140-440)
[2019-02-09] MEDS: BROVANA NEBU IH SCH ×2 (08:19→19:45)
[2019-02-09] MEDS: PULMICORT IH SCH ×2 (08:19→19:45)
--- NOTE | 2019-02-09 09:18 | Progress Note ---
Assessment and Plan Assessment and plan: 1. Acute encephalopathy, 2. Acute hypoxic respiratory failure with Severe respiratory alkalosis - s/p intubation 02/06 3. Acute GI bleed, possible PUD 4. Acute blood loss anemia (due to #2) 5. Hypokalemia, cont replete 6. CHF with acute exacerbation ( EF 20-25%) 7. SIRS, source of infection unclear 8. Severe protein calorie malnutrition 9. Hypernatremia, now resolved Plan: Monitor at ICU Now intubated, was on BIPAP monitor with serial XRY and abg, cont nebs GI following for acute GI bleed, s/p 5 units of packed RBCs monitor h/h, place on iv lasix Avoid NSAIDs, follow Cx, iv abx, BMP in the a.m. replete electrolytes, consulted dietary for TF No chemical DVT prophylaxis (GI bleed) The high probability of a clinically significant, sudden or life threatening deterioration of the [multiple] system(s) required my full and direct attention, intervention and personal management. The aggregate critical care time was [32] minutes. This time is in addition to time spent performing reported procedures but includes the following: [x] Data Review and interpretation [x] Patient assessment and monitoring of vital signs [x] Documentation [x] Medication orders and management History Interval history: Intubated for worsening shortness of breath no fever no adverse events overnight Hospitalist Physical - Physical exam Narrative exam: Gen: Intubated, malnourished HEENT: Normocephalic, atraumatic Neck: supple, no JVD Heart: S1 and S2 reg, no murmurs, rubs or gallop Lungs: Clear, no crackles, no wheeze Abd: soft, non tender, non distended, normal BS Ext: No edema, no clubbing, no cyanosis, Neuro: Intubated, sedated - Constitutional Vitals: Temp Pulse Resp BP Pulse Ox 97.5 F L 116 H 20 127/89 98 02/09/19 07:37 02/09/19 08:00 02/09/19 08:00 02/09/19 06:00 02/09/19 06:06 General appearance: Present: cachectic Results - Labs CBC & Chem 7: 02/09/19 03:57 02/09/19 03:57 Labs: Laboratory Last Values WBC 20.3 K/mm3 (4.5-11.0) H 02/09/19 03:57 RBC 4.68 M/mm3 (3.65-5.03) 02/09/19 03:57 Hgb 13.0 gm/dl (10.1-14.3) 02/09/19 03:57 Hct 39.2 % (30.3-42.9) 02/09/19 03:57 MCV 84 fl (79-97) 02/09/19 03:57 MCH 28 pg (28-32) 02/09/19 03:57 MCHC 33 % (30-34) 02/09/19 03:57 RDW 18.0 % (13.2-15.2) H 02/09/19 03:57 Plt Count 92 K/mm3 (140-440) L 02/09/19 03:57 Lymph % (Auto) 17.6 % (13.4-35.0) 02/03/19 18:06 [place] % (Auto) 10.1 % (0.0-7.3) H 02/03/19 18:06 Eos % (Auto) 0.1 % (0.0-4.3) 02/03/19 18:06 Baso % (Auto) 1.0 % (0.0-1.8) 02/03/19 18:06 Lymph # 1.1 K/mm3 (1.2-5.4) L 02/03/19 18:06 [place] # 0.6 K/mm3 (0.0-0.8) 02/03/19 18:06 Eos # 0.0 K/mm3 (0.0-0.4) 02/03/19 18:06 Baso # 0.1 K/mm3 (0.0-0.1) 02/03/19 18:06 Add Manual Diff Complete 02/07/19 05:27 Total Counted 100 02/07/19 05:27 Seg Neutrophils % Community Liaison 02/07/19 05:27 Seg Neuts % (Manual) 98.0 % (40.0-70.0) H 02/07/19 05:27 0 % 02/07/19 05:27 1.0 % (13.4-35.0) L 02/07/19 05:27 Reactive Lymphs % (Man) 0 % 02/07/19 05:27 1.0 % (0.0-7.3) 02/07/19 05:27 0 % (0.0-4.3) 02/07/19 05:27 0 % (0.0-1.8) 02/07/19 05:27 0 % 02/07/19 05:27 0 % 02/07/19 05:27 0 % 02/07/19 05:27 0 % 02/07/19 05:27 Nucleated RBC % Not Reportable 02/07/19 05:27 Seg Neutrophils # 4.5 K/mm3 (1.8-7.7) 02/03/19 18:06 Seg Neutrophils # Man 21.3 K/mm3 (1.8-7.7) H 02/07/19 05:27 Band Neutrophils # 0.0 K/mm3 02/07/19 05:27 0.2 K/mm3 (1.2-5.4) L 02/07/19 05:27 Abs React Lymphs (Man) 0.0 K/mm3 02/07/19 05:27 0.2 K/mm3 (0.0-0.8) 02/07/19 05:27 0.0 K/mm3 (0.0-0.4) 02/07/19 05:27 0.0 K/mm3 (0.0-0.1) 02/07/19 05:27 0.0 K/mm3 02/07/19 05:27 0.0 K/mm3 02/07/19 05:27 0.0 K/mm3 02/07/19 05:27 Blast Cells # 0.0 K/mm3 02/07/19 05:27 WBC Morphology Not Reportable 02/07/19 05:27 Hypersegmented Neuts Not Reportable 02/07/19 05:27 Hyposegmented Neuts Not Reportable 02/07/19 05:27 Hypogranular Neuts Not Reportable 02/07/19 05:27 Not Reportable 02/07/19 05:27 Not Reportable 02/07/19 05:27 Not Reportable 02/07/19 05:27 Not Reportable 02/07/19 05:27 Not Reportable 02/07/19 05:27 Not Reportable 02/07/19 05:27 Consistent w auto 02/07/19 05:27 Not Reportable 02/07/19 05:27 Plt Clumps, EDTA Not Reportable 02/07/19 05:27 Not Reportable 02/07/19 05:27 Not Reportable 02/07/19 05:27 Not Reportable 02/07/19 05:27 Plt Morphology Comment Not Reportable 02/07/19 05:27 RBC Morphology Not Reportable 02/07/19 05:27 Dimorphic RBCs Not Reportable 02/07/19 05:27 Not Reportable 02/07/19 05:27 Not Reportable 02/07/19 05:27 Few 02/07/19 05:27 Few 02/07/19 05:27 Not Reportable 02/07/19 05:27 Not Reportable 02/07/19 05:27 Not Reportable 02/07/19 05:27 Not Reportable 02/07/19 05:27 Not Reportable 02/07/19 05:27 Not Reportable 02/07/19 05:27 Not Reportable 02/07/19 05:27 Not Reportable 02/07/19 05:27 Not Reportable 02/07/19 05:27 Not Reportable 02/07/19 05:27 Not Reportable 02/07/19 05:27 Not Reportable 02/07/19 05:27 Not Reportable 02/07/19 05:27 Not Reportable 02/07/19 05:27 Not Reportable 02/07/19 05:27 Acanthocytes (Spur) Not Reportable 02/07/19 05:27 Rouleaux Not Reportable 02/07/19 05:27 Not Reportable 02/07/19 05:27 Not Reportable 02/07/19 05:27 Not Reportable 02/07/19 05:27 Not Reportable 02/07/19 05:27 Hem Pathologist Commnt No 02/07/19 05:27 PT 19.3 Sec. (12.2-14.9) H 02/03/19 19:24 INR 1.52 (0.87-1.13) H 02/03/19 19:24 APTT 30.3 Sec. (24.2-36.6) 02/03/19 19:24 POC ABG pH 7.473 (7.35-7.45) H 02/09/19 04:49 POC ABG pCO2 35.5 (35-45) 02/09/19 04:49 POC ABG pO2 98 (80-105) 02/09/19 04:49 POC ABG HCO3 26.0 (22-26 mml/L) 02/09/19 04:49 POC ABG Total CO2 27 (23-27mmol/L) 02/09/19 04:49 POC ABG O2 Sat 98 02/09/19 04:49 POC ABG Base Excess 2 ((-2) - (+3)mmol/L) 02/09/19 04:49 40 % 02/09/19 04:49 Sodium 140 mmol/L (137-145) 02/09/19 03:57 Potassium 4.2 mmol/L (3.6-5.0) 02/09/19 03:57 Chloride 99.2 mmol/L (98-107) 02/09/19 03:57 Carbon Dioxide 25 mmol/L (22-30) 02/09/19 03:57 20 mmol/L 02/09/19 03:57 BUN 29 mg/dL (7-17) H 02/09/19 03:57 0.5 mg/dL (0.7-1.2) L 02/09/19 03:57 Estimated GFR > 60 ml/min 02/09/19 03:57 58 % 02/09/19 03:57 Glucose 172 mg/dL (65-100) H 02/09/19 03:57 POC Glucose 205 (70-105) H 02/08/19 23:24 Lactic Acid 1.70 mmol/L (0.7-2.0) 02/05/19 04:41 Calcium 9.4 mg/dL (8.4-10.2) 02/09/19 03:57 Phosphorus 2.50 mg/dL (2.5-4.5) D 02/08/19 04:26 Magnesium 1.90 mg/dL (1.7-2.3) 02/07/19 05:27 0.30 mg/dL (0.1-1.2) 02/03/19 18:08 AST 35 units/L (5-40) 02/03/19 18:08 ALT 27 units/L (7-56) 02/03/19 18:08 117 units/L (35-129) 02/03/19 18:08 0.058 ng/mL (0.00-0.029) H D 02/08/19 18:52 9.30 mg/dL (0.00-1.30) H 02/04/19 17:07 NT-Pro-B Natriuret Pep 9160 pg/mL (0-900) H 02/03/19 18:06 5.1 g/dL (6.3-8.2) L 02/03/19 18:08 2.8 g/dL (3.9-5) L 02/03/19 18:08 1.2 % 02/03/19 18:08 Triglycerides 164 mg/dL (2-149) H 02/03/19 18:08 Cholesterol 125 mg/dL (50-199) 02/03/19 18:08 75 mg/dL (50-130) 02/03/19 18:08 31 mg/dL (40-59) L 02/03/19 18:08 4.03 % 02/03/19 18:08 Yellow (Yellow) 02/03/19 02:57 Clear (Clear) 02/03/19 02:57 6.0 (5.0-7.0) 02/03/19 02:57 Ur Specific [place] 1.011 (1.003-1.030) 02/03/19 02:57 <15 mg/dl mg/dL (Negative) 02/03/19 02:57 Neg mg/dL (Negative) 02/03/19 02:57 Neg mg/dL (Negative) 02/03/19 02:57 Neg (Negative) 02/03/19 02:57 Neg (Negative) 02/03/19 02:57 Neg (Negative) 02/03/19 02:57 < 2.0 mg/dL (<2.0) 02/03/19 02:57 Ur Leukocyte Esterase Neg (Negative) 02/03/19 02:57 7.0 /HPF (0.0-6.0) H 02/03/19 02:57 8.0 /HPF (0.0-6.0) 02/03/19 02:57 U Epithel Cells (Auto) 1.0 /HPF (0-13.0) 02/03/19 02:57 2+ /HPF (Negative) 02/03/19 02:57 Hyaline Casts 22 /LPF 02/03/19 02:57 3+ /HPF 02/03/19 02:57 Blood Type A POSITIVE 02/03/19 18:06 Antibody Screen Negative 02/03/19 18:06 Crossmatch See Detail 02/03/19 18:06 Active Medications - Current Medications Current Medications: Generic Name Dose Route Start Last Admin Trade Name Freq PRN Reason Stop Dose Admin Albuterol/Ipratropium 1 ampul 02/04/19 02:00 02/09/19 08:19 Duoneb *Not For Prn Use* IH Not Given Q6HRT JOEL Lipase/Protease/Amylase 1 each 02/08/19 16:37 Pancreaze 10,500 Unit FEEDTUBE PRN PRN For Clogged Feeding Tube Arformoterol Tartrate 15 mcg 02/04/19 14:15 02/09/19 08:19 Brovana Nebu IH 15 mcg Q12HRT JOEL Administration Budesonide 0.5 mg 02/04/19 20:00 02/09/19 08:19 Pulmicort IH 0.5 mg Q12HRT JOEL Administration Fentanyl 50 mcg 02/06/19 10:50 Sublimaze IV Q10MIN PRN ANALGESIA Furosemide 40 mg 02/06/19 06:00 02/09/19 05:21 Lasix IV 40 mg 0600,1800 JOEL Administration Hydrophilic Ointment 1 applic 02/06/19 10:50 Vaseline Lip Therapy TP Q2HR PRN Dry Lips Fentanyl Citrate 2,000 mcg in 100 mls @ 2.075 mls/hr 02/06/19 11:00 02/08/19 11:09 Fentanyl Drip Premix IV 1 mcg/kg/hr TITR JOEL 2.075 mls/hr Administration Protocol 1 MCG/KG/HR Lansoprazole 30 mg 02/08/19 10:00 02/08/19 09:46 Prevacid Solutab FEEDTUBE 30 mg QDAY JOEL Administration Methylprednisolone Sodium Succinate 40 mg 02/04/19 15:00 02/08/19 21:24 Solu-Medrol IV 40 mg Q12HR JOEL Administration Morphine Sulfate 2 mg 02/04/19 12:51 02/08/19 15:08 Morphine IV 2 mg Q4H PRN Administration Pain, Moderate (4-6) Multi-Ingred Cream/Lotion/Oil/Oint 1 applic 02/06/19 10:50 Artificial Tears Ophth Oint OU Q4HR PRN Dry Eye(s) Ondansetron HCl 4 mg 02/03/19 20:27 Zofran IV Q8H PRN Nausea And Vomiting Simple Syrup 15 ml 02/08/19 16:37 Simple Syrup FEEDTUBE PRN PRN Hypoglycemia Simple Syrup 30 ml 02/08/19 16:37 Simple Syrup FEEDTUBE PRN PRN Hypoglycemia Sodium Bicarbonate 325 mg 02/08/19 16:37 Sodium Bicarbonate FEEDTUBE PRN PRN For Clogged Feeding Tube Sodium Chloride 10 ml 02/03/19 22:00 02/08/19 21:26 Sodium Chloride Flush Syringe 10 Ml IV 10 ml BID JOEL Administration Sodium Chloride 10 ml 02/03/19 20:27 Sodium Chloride Flush Syringe 10 Ml IV PRN PRN LINE FLUSH Nutrition/Malnutrition Assess - Dietary Evaluation Nutrition/Malnutrition Findings: Nutrition Notes Start: 02/04/19 14:37 Freq: Status: Active Protocol: Document 02/08/19 16:39 LARS (Rec: 02/08/19 16:44 LARS [email or web address] [email or web address]) Nutrition Notes Initial or Follow up Brief Note Current Diagnosis Heart Failure,Respiratory Failure Other Pertinent Diagnosis AMS Current Diet TF - Vital AF 1.2 at 50ml/hr Labs/Tests BUN 19 BG 190 Pertinent Medications Reviewed Height 5 ft 3 in Weight 39.8 kg [place] Body Weight (kg) 52.27 BMI 15.5 Subjective/Other Information Pt tolerating TF at goal rate; remains on vent support. Burn Absent Trauma Absent #1 Nutrition Diagnosis Inadequate oral intake Diagnosis Progress(for reassessment Continues documentation) Is patient on ventilator? Yes Is Patient Ambulatory and/or Out of Bed No REE-([facility]-confined to bed) 1070.796 Kcal/Kg value to use for calculation 35 Approximate Energy Requirements Using 1393 kcal/Kg Calculation Used for Recommendations Kcal/kg Additional Notes Pro needs 1.2-2g/k-80g/ day Fluid needs 1ml/kcal Nutrition Intervention Nutrition Support: Change TF formula to Glucerna 1.2 at 45ml/hr with 75ml water flush q4h. Kcal 1,296 Protein (gm) 65 Carbohydrates (gm) 124 Fluid (mL) 869 Fiber (gm) 17 Goal #1 TF tolerance Goal #2 TF to meet 90-100% energy and pro needs Follow-Up By: 02/11/19 Additional Comments F/U: TF formula change/ tolerance, vent status
[2019-02-09] MEDS: SODIUM CHLORIDE FLUSH SYRINGE 10 ML IV SCH ×3 (09:19→21:36)
[2019-02-09] MEDS: SOLU-Medrol IV SCH ×2 (09:19→21:36)
[2019-02-09] MEDS: PREVACID SOLUTAB FEEDTUBE SCH (09:19)
--- NOTE | 2019-02-09 09:40 | Progress Note ---
Assessment and Plan Severe Sepsis with Shock Acute hypoxemic respiratory failure, on MVS Symptomatic anemia with positive stool guaiac. Acute chronic obstructive pulmonary disease exacerbation. Possible acute gastrointestinal bleed. Acute congestive heart failure exacerbation. Hypokalemia. Elevated serum troponin. Adult failure to thrive. -Continue full MVS, -Quick steroid taper in view of heart failure -Adjust minute ventilation for better acid-base -Wean supplemental oxygen to keep O2 sats 88-90% -Lung protective strategies -Oxygen restrictive strategies -Daily ABGs/CXR -Follow tracheal aspirate cultures -VAP bundle addressed -Diuresis as tolerated by hemodynamics. Monitor renal indices closely -Avoid nephrotoxic agents, adjust all medications for CrCL -Strict intake and output monitoring -Daily SAT's & SBT's -Sedation target for RASS 0 to -1 -Stress ulcer prophylaxis -VTE prophylaxis -Nutrition consult for tube feedings -Aspiration precautions -Accuchecks with glycemic control. Target glucose of 140-180 mg/dL -Bronchodilators with pulmonary hygiene per RT -Maintenance of sleep -wake cycle -Mobility as tolerated by hemodynamics -Influenza and pneumonia vaccination per protocol ..care plan discussed at length with RN/RT at the bedside -updated her who was at the bedside PROGNOSIS: GUARDED CONDITION: CRITICAL CODE STATUS: FULL CODE The high probability of a clinically significant, sudden or life-threatening deterioration of the [respiratory, cardiovascular] system(s) required my full and direct attention, intervention and personal management. The aggregate critical care time was [35] minutes without overlap. Time includes spent on; [x] Data Review and interpretation [x] Patient assessment and monitoring of vital signs [x] Documentation [x] Medication orders and management Subjective Date of service: 02/09/19 Principal diagnosis: GI bleed Interval history: Patient is seen today for: Acute hypoxemic Resp failure; Symptomatic anemia; AE- COPD; G.I. Bleed; Acute congestive heart failure exacerbation; Hypotension; SIRS Seen and examined at bedside; 24-hour events reviewed; nursing and respiratory care staff consulted; no adverse overnight events reported to me; resting peacefully. No reported fevers, no chills, Tolerated 4 hours of PSV yesterday On full mechanical ventilator support, at the bedside. Vitals, labs, medications, chart and imaging reviewed. Objective - Exam Narrative Exam: Gen: Intubated,chronically ill looking, no patient-ventilator dyssynchrony Thin, Small bowel feeding tube in nares ETT at 23cm at the lip, HEENT: Normocephalic, atraumatic Neck: supple, no JVD Heart: S1 and S2 reg, no murmurs, rubs or gallop Lungs: Diminished AE bilaterally, Clear, no crackles, no wheeze Abd: soft, non tender, non distended, normal BS Ext: No edema, no clubbing, no cyanosis, Neuro: Intubated, Vital Signs - 12hr 02/08/19 02/08/19 02/08/19 22:00 23:00 23:15 Temperature Pulse Rate 105 H 114 H 115 H Pulse Rate [ Anterior Bilateral Throughout] Pulse Rate [ 113 H From Monitor] Respiratory 21 22 14 Rate Respiratory Rate [Anterior Bilateral Throughout] Blood Pressure 133/87 123/83 O2 Sat by Pulse 96 96 98 Oximetry 02/08/19 02/08/19 02/08/19 23:20 23:23 23:30 Temperature 98.1 F Pulse Rate 116 H 114 H Pulse Rate [ Anterior Bilateral Throughout] Pulse Rate [ From Monitor] Respiratory 21 Rate Respiratory Rate [Anterior Bilateral Throughout] Blood Pressure 123/83 123/83 O2 Sat by Pulse 97 97 Oximetry 02/09/19 02/09/19 02/09/19 00:00 01:00 01:15 Temperature Pulse Rate 115 H 106 H 106 H Pulse Rate [ Anterior Bilateral Throughout] Pulse Rate [ 108 H From Monitor] Respiratory 21 17 14 Rate Respiratory Rate [Anterior Bilateral Throughout] Blood Pressure 122/86 129/85 O2 Sat by Pulse 97 97 98 Oximetry 02/09/19 02/09/19 02/09/19 02:00 03:00 03:07 Temperature Pulse Rate 111 H 112 H 112 H Pulse Rate [ Anterior Bilateral Throughout] Pulse Rate [ 112 H From Monitor] Respiratory 21 20 14 Rate Respiratory Rate [Anterior Bilateral Throughout] Blood Pressure 130/86 140/93 O2 Sat by Pulse 96 97 98 Oximetry 02/09/19 02/09/19 02/09/19 04:00 04:01 05:00 Temperature 98.0 F Pulse Rate 100 H 97 H 97 H Pulse Rate [ Anterior Bilateral Throughout] Pulse Rate [ From Monitor] Respiratory 18 15 Rate Respiratory Rate [Anterior Bilateral Throughout] Blood Pressure 125/90 125/90 132/89 O2 Sat by Pulse 98 98 Oximetry 02/09/19 02/09/19 02/09/19 05:14 06:00 06:06 Temperature Pulse Rate 97 H 99 H Pulse Rate [ Anterior Bilateral Throughout] Pulse Rate [ 100 H From Monitor] Respiratory 16 15 16 Rate Respiratory Rate [Anterior Bilateral Throughout] Blood Pressure 127/89 O2 Sat by Pulse 98 96 98 Oximetry 02/09/19 02/09/19 07:37 08:00 Temperature 97.5 F L Pulse Rate Pulse Rate [ 116 H Anterior Bilateral Throughout] Pulse Rate [ From Monitor] Respiratory Rate Respiratory 20 Rate [Anterior Bilateral Throughout] Blood Pressure O2 Sat by Pulse Oximetry CBC and BMP: 02/10/19 04:59 02/10/19 04:59 ABG, PT/INR, D-dimer: ABG POC ABG pH 7.473 (7.35-7.45) H 02/09/19 04:49 POC ABG pCO2 35.5 (35-45) 02/09/19 04:49 POC ABG pO2 98 (80-105) 02/09/19 04:49 POC ABG HCO3 26.0 (22-26 mml/L) 02/09/19 04:49 POC ABG Total CO2 27 (23-27mmol/L) 02/09/19 04:49 POC ABG O2 Sat 98 02/09/19 04:49 PT/INR, D-dimer PT 19.3 Sec. (12.2-14.9) H 02/03/19 19:24 INR 1.52 (0.87-1.13) H 02/03/19 19:24 Abnormal lab findings: Abnormal Labs 02/03/19 02/03/19 02/03/19 02:57 18:06 18:06 WBC RBC 0.88 L Hgb 1.9 L* Hct 7.1 L* MCH 22 L MCHC 27 L RDW 23.3 H Plt Count 489 H [place] % (Auto) 10.1 H Lymph # 1.1 L Seg Neutrophils % 71.2 H Seg Neuts % (Manual) Lymphocytes % (Manual) Seg Neutrophils # Man Lymphocytes # (Manual) PT INR POC ABG pH POC ABG pCO2 POC ABG pO2 Sodium Potassium Chloride Carbon Dioxide BUN Creatinine Glucose POC Glucose Lactic Acid Calcium Phosphorus Troponin T C-Reactive Protein NT-Pro-B Natriuret Pep 9160 H Total Protein Albumin Triglycerides HDL Cholesterol Urine WBC (Auto) 7.0 H Crossmatch 02/03/19 02/03/19 02/03/19 18:06 18:08 18:08 WBC RBC Hgb Hct MCH MCHC RDW Plt Count [place] % (Auto) Lymph # Seg Neutrophils % Seg Neuts % (Manual) Lymphocytes % (Manual) Seg Neutrophils # Man Lymphocytes # (Manual) PT INR POC ABG pH POC ABG pCO2 POC ABG pO2 Sodium Potassium 3.3 L Chloride Carbon Dioxide 17 L BUN Creatinine Glucose POC Glucose Lactic Acid 9.90 H* Calcium 7.9 L Phosphorus Troponin T 0.134 H* C-Reactive Protein NT-Pro-B Natriuret Pep Total Protein 5.1 L Albumin 2.8 L Triglycerides 164 H HDL Cholesterol 31 L Urine WBC (Auto) Crossmatch See Detail 02/03/19 02/03/19 02/03/19 19:24 19:24 19:24 WBC RBC Hgb Hct MCH MCHC RDW Plt Count [place] % (Auto) Lymph # Seg Neutrophils % Seg Neuts % (Manual) Lymphocytes % (Manual) Seg Neutrophils # Man Lymphocytes # (Manual) PT 19.3 H INR 1.52 H POC ABG pH POC ABG pCO2 POC ABG pO2 Sodium Potassium Chloride Carbon Dioxide BUN Creatinine Glucose POC Glucose Lactic Acid 6.30 H* Calcium Phosphorus Troponin T 0.139 H* C-Reactive Protein NT-Pro-B Natriuret Pep Total Protein Albumin Triglycerides HDL Cholesterol Urine WBC (Auto) Crossmatch 02/03/19 02/03/19 02/04/19 20:30 23:36 01:18 WBC RBC Hgb Hct MCH MCHC RDW Plt Count [place] % (Auto) Lymph # Seg Neutrophils % Seg Neuts % (Manual) Lymphocytes % (Manual) Seg Neutrophils # Man Lymphocytes # (Manual) PT INR POC ABG pH 7.515 H POC ABG pCO2 POC ABG pO2 121 H Sodium Potassium Chloride Carbon Dioxide BUN Creatinine Glucose POC Glucose Lactic Acid 6.50 H* 5.70 H* Calcium Phosphorus Troponin T C-Reactive Protein NT-Pro-B Natriuret Pep Total Protein Albumin Triglycerides HDL Cholesterol Urine WBC (Auto) Crossmatch 02/04/19 02/04/19 02/04/19 04:35 04:35 04:35 WBC 17.5 H RBC Hgb Hct MCH 27 L MCHC RDW 15.9 H Plt Count [place] % (Auto) Lymph # Seg Neutrophils % Seg Neuts % (Manual) 96.0 H Lymphocytes % (Manual) 1.0 L Seg Neutrophils # Man 16.8 H Lymphocytes # (Manual) 0.2 L PT INR POC ABG pH POC ABG pCO2 POC ABG pO2 Sodium 147 H Potassium 3.2 L Chloride Carbon Dioxide 21 L BUN Creatinine Glucose 170 H POC Glucose Lactic Acid 3.60 H* Calcium 7.9 L Phosphorus Troponin T C-Reactive Protein NT-Pro-B Natriuret Pep Total Protein Albumin Triglycerides HDL Cholesterol Urine WBC (Auto) Crossmatch 02/04/19 02/04/19 02/04/19 10:59 17:07 17:07 WBC RBC Hgb Hct MCH MCHC RDW Plt Count [place] % (Auto) Lymph # Seg Neutrophils % Seg Neuts % (Manual) Lymphocytes % (Manual) Seg Neutrophils # Man Lymphocytes # (Manual) PT INR POC ABG pH POC ABG pCO2 POC ABG pO2 Sodium Potassium 3.1 L Chloride Carbon Dioxide BUN Creatinine Glucose POC Glucose Lactic Acid 2.30 H* Calcium Phosphorus Troponin T C-Reactive Protein 9.30 H NT-Pro-B Natriuret Pep Total Protein Albumin Triglycerides HDL Cholesterol Urine WBC (Auto) Crossmatch 02/04/19 02/04/19 02/05/19 17:15 21:04 00:05 WBC RBC Hgb Hct MCH MCHC RDW Plt Count [place] % (Auto) Lymph # Seg Neutrophils % Seg Neuts % (Manual) Lymphocytes % (Manual) Seg Neutrophils # Man Lymphocytes # (Manual) PT INR POC ABG pH 7.310 L POC ABG pCO2 POC ABG pO2 68 L Sodium Potassium Chloride Carbon Dioxide BUN Creatinine Glucose POC Glucose Lactic Acid 2.40 H* 2.70 H* Calcium Phosphorus Troponin T C-Reactive Protein NT-Pro-B Natriuret Pep Total Protein Albumin Triglycerides HDL Cholesterol Urine WBC (Auto) Crossmatch 02/05/19 02/05/19 02/05/19 04:41 04:41 12:54 WBC 15.1 H RBC Hgb Hct MCH MCHC RDW 16.6 H Plt Count [place] % (Auto) Lymph # Seg Neutrophils % Seg Neuts % (Manual) 90.0 H Lymphocytes % (Manual) 2.0 L Seg Neutrophils # Man 13.6 H Lymphocytes # (Manual) 0.3 L PT INR POC ABG pH POC ABG pCO2 POC ABG pO2 74 L Sodium 147 H Potassium Chloride 114.1 H Carbon Dioxide 20 L BUN 19 H Creatinine Glucose 192 H POC Glucose Lactic Acid Calcium 7.4 L Phosphorus Troponin T C-Reactive Protein NT-Pro-B Natriuret Pep Total Protein Albumin Triglycerides HDL Cholesterol Urine WBC (Auto) Crossmatch 02/06/19 02/06/19 02/06/19 01:46 11:42 11:42 WBC 21.1 H RBC Hgb Hct MCH MCHC RDW 17.0 H Plt Count [place] % (Auto) Lymph # Seg Neutrophils % Seg Neuts % (Manual) Lymphocytes % (Manual) Seg Neutrophils # Man Lymphocytes # (Manual) PT INR POC ABG pH POC ABG pCO2 34.4 L POC ABG pO2 56 L Sodium 151 H Potassium Chloride 112.1 H Carbon Dioxide BUN Creatinine Glucose 187 H POC Glucose Lactic Acid Calcium 8.1 L Phosphorus Troponin T C-Reactive Protein NT-Pro-B Natriuret Pep Total Protein Albumin Triglycerides HDL Cholesterol Urine WBC (Auto) Crossmatch 02/06/19 02/07/19 02/07/19 12:04 04:26 05:27 WBC 21.7 H RBC Hgb Hct MCH MCHC RDW 17.6 H Plt Count [place] % (Auto) Lymph # Seg Neutrophils % Seg Neuts % (Manual) 98.0 H Lymphocytes % (Manual) 1.0 L Seg Neutrophils # Man 21.3 H Lymphocytes # (Manual) 0.2 L PT INR POC ABG pH 7.481 H POC ABG pCO2 31.3 L POC ABG pO2 63 L 50 L Sodium Potassium Chloride Carbon Dioxide BUN Creatinine Glucose POC Glucose Lactic Acid Calcium Phosphorus Troponin T C-Reactive Protein NT-Pro-B Natriuret Pep Total Protein Albumin Triglycerides HDL Cholesterol Urine WBC (Auto) Crossmatch 02/07/19 02/07/19 02/07/19 05:27 05:29 23:07 WBC RBC Hgb Hct MCH MCHC RDW Plt Count [place] % (Auto) Lymph # Seg Neutrophils % Seg Neuts % (Manual) Lymphocytes % (Manual) Seg Neutrophils # Man Lymphocytes # (Manual) PT INR POC ABG pH POC ABG pCO2 POC ABG pO2 Sodium 147 H Potassium Chloride 108.4 H Carbon Dioxide BUN Creatinine 0.6 L Glucose 184 H POC Glucose 188 H 172 H Lactic Acid Calcium 8.3 L Phosphorus 1.50 L Troponin T C-Reactive Protein NT-Pro-B Natriuret Pep Total Protein Albumin Triglycerides HDL Cholesterol Urine WBC (Auto) Crossmatch 02/08/19 02/08/19 02/08/19 04:26 04:26 11:50 WBC 18.8 H RBC Hgb Hct MCH MCHC RDW 17.7 H Plt Count [place] % (Auto) Lymph # Seg Neutrophils % Seg Neuts % (Manual) Lymphocytes % (Manual) Seg Neutrophils # Man Lymphocytes # (Manual) PT INR POC ABG pH POC ABG pCO2 POC ABG pO2 Sodium Potassium Chloride Carbon Dioxide BUN 19 H Creatinine 0.6 L Glucose 190 H POC Glucose 185 H Lactic Acid Calcium 8.2 L Phosphorus Troponin T C-Reactive Protein NT-Pro-B Natriuret Pep Total Protein Albumin Triglycerides HDL Cholesterol Urine WBC (Auto) Crossmatch 02/08/19 02/08/19 02/08/19 12:01 17:44 18:52 WBC RBC Hgb Hct MCH MCHC RDW Plt Count [place] % (Auto) Lymph # Seg Neutrophils % Seg Neuts % (Manual) Lymphocytes % (Manual) Seg Neutrophils # Man Lymphocytes # (Manual) PT INR POC ABG pH POC ABG pCO2 POC ABG pO2 Sodium Potassium Chloride Carbon Dioxide BUN Creatinine Glucose POC Glucose 186 H 143 H Lactic Acid Calcium Phosphorus Troponin T 0.058 H D C-Reactive Protein NT-Pro-B Natriuret Pep Total Protein Albumin Triglycerides HDL Cholesterol Urine WBC (Auto) Crossmatch 02/08/19 02/09/19 02/09/19 23:24 03:57 03:57 WBC 20.3 H RBC Hgb Hct MCH MCHC RDW 18.0 H Plt Count 92 L [place] % (Auto) Lymph # Seg Neutrophils % Seg Neuts % (Manual) Lymphocytes % (Manual) Seg Neutrophils # Man Lymphocytes # (Manual) PT INR POC ABG pH POC ABG pCO2 POC ABG pO2 Sodium Potassium Chloride Carbon Dioxide BUN 29 H Creatinine 0.5 L Glucose 172 H POC Glucose 205 H Lactic Acid Calcium Phosphorus Troponin T C-Reactive Protein NT-Pro-B Natriuret Pep Total Protein Albumin Triglycerides HDL Cholesterol Urine WBC (Auto) Crossmatch 02/09/19 04:49 WBC RBC Hgb Hct MCH MCHC RDW Plt Count [place] % (Auto) Lymph # Seg Neutrophils % Seg Neuts % (Manual) Lymphocytes % (Manual) Seg Neutrophils # Man Lymphocytes # (Manual) PT INR POC ABG pH 7.473 H POC ABG pCO2 POC ABG pO2 Sodium Potassium Chloride Carbon Dioxide BUN Creatinine Glucose POC Glucose Lactic Acid Calcium Phosphorus Troponin T C-Reactive Protein NT-Pro-B Natriuret Pep Total Protein Albumin Triglycerides HDL Cholesterol Urine WBC (Auto) Crossmatch Allied health notes reviewed: RT
[2019-02-09] MEDS: ZOFRAN IV PRN ×2 (10:35→16:37)
--- NOTE | 2019-02-09 13:13 | Progress Note ---
Assessment and Plan 1. Hypernatremia: High sodium is likely from diuretics. Sodium level is better. Continue water flushes. Will stop IV D5W. Monitor Sodium level. 2. FEN: Volume overload, on IV Lasix. Monitor lytes. 3. Respiratory failure: COPD exacerbation. On vent. 4. Suspected GI bleed: Followed by GI. 5. Leukocytosis. Subjective Date of service: 02/09/19 Principal diagnosis: GI bleed Interval history: Patient was seen and examined at the bedside. at the bedside. Objective - Vital Signs Vital signs: Vital Signs - 12hr 02/09/19 02/09/19 02/09/19 01:15 02:00 03:00 Temperature Pulse Rate 106 H 111 H 112 H Pulse Rate [ Anterior Bilateral Throughout] Pulse Rate [ 108 H From Monitor] Respiratory 14 21 20 Rate Respiratory Rate [Anterior Bilateral Throughout] Blood Pressure 130/86 140/93 O2 Sat by Pulse 98 96 97 Oximetry 02/09/19 02/09/19 02/09/19 03:07 04:00 04:01 Temperature 98.0 F Pulse Rate 112 H 100 H 97 H Pulse Rate [ Anterior Bilateral Throughout] Pulse Rate [ 112 H From Monitor] Respiratory 14 18 Rate Respiratory Rate [Anterior Bilateral Throughout] Blood Pressure 125/90 125/90 O2 Sat by Pulse 98 98 98 Oximetry 02/09/19 02/09/19 02/09/19 05:00 05:14 06:00 Temperature Pulse Rate 97 H 97 H 99 H Pulse Rate [ Anterior Bilateral Throughout] Pulse Rate [ 100 H From Monitor] Respiratory 15 16 15 Rate Respiratory Rate [Anterior Bilateral Throughout] Blood Pressure 132/89 127/89 O2 Sat by Pulse 98 96 Oximetry 02/09/19 02/09/19 02/09/19 06:06 07:00 07:37 Temperature 97.5 F L Pulse Rate 101 H Pulse Rate [ Anterior Bilateral Throughout] Pulse Rate [ From Monitor] Respiratory 16 14 Rate Respiratory Rate [Anterior Bilateral Throughout] Blood Pressure 122/89 O2 Sat by Pulse 98 Oximetry 02/09/19 02/09/19 02/09/19 08:00 08:12 08:19 Temperature Pulse Rate 112 H 108 H Pulse Rate [ 116 H Anterior Bilateral Throughout] Pulse Rate [ From Monitor] Respiratory 16 Rate Respiratory 20 Rate [Anterior Bilateral Throughout] Blood Pressure 130/86 120/81 O2 Sat by Pulse 97 98 Oximetry 02/09/19 02/09/19 02/09/19 08:30 09:00 10:00 Temperature Pulse Rate 114 H 124 H Pulse Rate [ 97 H Anterior Bilateral Throughout] Pulse Rate [ From Monitor] Respiratory 17 29 H Rate Respiratory 20 Rate [Anterior Bilateral Throughout] Blood Pressure 120/81 106/74 O2 Sat by Pulse 97 97 Oximetry 02/09/19 02/09/19 02/09/19 10:25 11:00 12:00 Temperature Pulse Rate 100 H 115 H 98 H Pulse Rate [ Anterior Bilateral Throughout] Pulse Rate [ From Monitor] Respiratory 18 23 17 Rate Respiratory Rate [Anterior Bilateral Throughout] Blood Pressure 106/74 123/91 134/88 O2 Sat by Pulse 98 98 98 Oximetry 02/09/19 02/09/19 13:00 13:08 Temperature Pulse Rate 104 H Pulse Rate [ 106 H Anterior Bilateral Throughout] Pulse Rate [ From Monitor] Respiratory 19 Rate Respiratory 21 Rate [Anterior Bilateral Throughout] Blood Pressure 135/93 O2 Sat by Pulse 98 Oximetry - General Appearance General appearance: well-developed, appears stated age, sedated on ventilator, intubated EENT: ATNC, PERRL Neck: supple Respiratory: Present: Clear to Ascultation Cardiology: regular, S1S2, no murmurs Gastrointestinal: normoactive bowel sounds, no tenderness, no distended Integumentary: no rash Neurologic: obtunded Musculoskeletal: other (no edema) - Lab 02/10/19 04:59 02/10/19 04:59 Most recent lab results Calcium 9.4 mg/dL (8.4-10.2) 02/09/19 03:57 Phosphorus 2.50 mg/dL (2.5-4.5) D 02/08/19 04:26 Magnesium 1.90 mg/dL (1.7-2.3) 02/07/19 05:27 Medications & Allergies - Medications Allergies/Adverse Reactions: Allergies No Known Allergies Allergy (Unverified 02/03/19 18:28) Home Medications: Home Medications Medication Instructions Recorded Confirmed Last Taken Type No Known Home Medications [No 02/07/19 02/07/19 Unknown History Reported Home Medications] Active Medications: Generic Name Dose Route Start Last Admin Trade Name Freq PRN Reason Stop Dose Admin Albuterol/Ipratropium 1 ampul 02/04/19 02:00 02/09/19 13:08 Duoneb *Not For Prn Use* IH 1 ampul Q6HRT JOEL Administration Lipase/Protease/Amylase 1 each 02/08/19 16:37 Pancrebrant Smith 10,500 Unit FEEDTUBE PRN PRN For Clogged Feeding Tube Arformoterol Tartrate 15 mcg 02/04/19 14:15 02/09/19 08:19 Brovana Nebu IH 15 mcg Q12HRT JOEL Administration Budesonide 0.5 mg 02/04/19 20:00 02/09/19 08:19 Pulmicort IH 0.5 mg Q12HRT JOEL Administration Fentanyl 50 mcg 02/06/19 10:50 Sublimaze IV Q10MIN PRN ANALGESIA Furosemide 40 mg 02/06/19 06:00 02/09/19 05:21 Lasix IV 40 mg 0600,1800 [facility] Administration Hydrophilic Ointment 1 applic 02/06/19 10:50 Vaseline Lip Therapy TP Q2HR PRN Dry Lips Fentanyl Citrate 2,000 mcg in 100 mls @ 2.075 mls/hr 02/06/19 11:00 02/08/19 11:09 Fentanyl Drip Premix IV 1 mcg/kg/hr TITR JOEL 2.075 mls/hr Administration Protocol 1 MCG/KG/HR Lansoprazole 30 mg 02/08/19 10:00 02/09/19 09:19 Prevacid Solutab FEEDTUBE 30 mg QDAY JOEL Administration Methylprednisolone Sodium Succinate 40 mg 02/04/19 15:00 02/09/19 09:19 Solu-Medrol IV 40 mg Q12HR JOEL Administration Morphine Sulfate 2 mg 02/04/19 12:51 02/08/19 15:08 Morphine IV 2 mg Q4H PRN Administration Pain, Moderate (4-6) Multi-Ingred Cream/Lotion/Oil/Oint 1 applic 02/06/19 10:50 Artificial Tears Ophth Oint OU Q4HR PRN Dry Eye(s) Ondansetron HCl 4 mg 02/03/19 20:27 02/09/19 10:35 Zofran IV 4 mg Q8H PRN Administration Nausea And Vomiting Simple Syrup 15 ml 02/08/19 16:37 Simple Syrup FEEDTUBE PRN PRN Hypoglycemia Simple Syrup 30 ml 02/08/19 16:37 Simple Syrup FEEDTUBE PRN PRN Hypoglycemia Sodium Bicarbonate 325 mg 02/08/19 16:37 Sodium Bicarbonate FEEDTUBE PRN PRN For Clogged Feeding Tube Sodium Chloride 10 ml 02/03/19 22:00 02/09/19 09:21 Sodium Chloride Flush Syringe 10 Ml IV 10 ml BID JOEL Administration Sodium Chloride 10 ml 02/03/19 20:27 Sodium Chloride Flush Syringe 10 Ml IV PRN PRN LINE FLUSH
--- NOTE | 2019-02-09 13:42 | XRay Report ---
PROCEDURE: XR ABDOMEN 1V AP TECHNIQUE: Abdominal radiograph, single view. HISTORY: vomiting COMPARISONS: 02/06/2019 . FINDINGS: There are air-filled dilated loops of bowel throughout the abdomen, some of which do appear to be sma ll bowel loops. Findings are concerning for small bowel obstruction. There is an enteric tube, with t he tip in the proximal stomach. Multilevel lumbar spine degenerative changes are present. IMPRESSION: Findings are concerning for bowel obstruction. Consider follow-up CT with oral contrast. This document is electronically signed by Nelli Da Silva MD., Feb 09 2019 01:39:58 PM ET
[2019-02-09] MEDS: fentaNYL DRIP Premix 2,000 MCG/100 ML BAG IV SCH (17:15)
--- NOTE | 2019-02-09 18:48 | Cat Scan Report ---
PROCEDURE: CT ABDOMEN PELVIS WO CON TECHNIQUE: CT of the abdomen/pelvis obtained without contrast. HISTORY: vomiting.,r/o obstruction COMPARISONS: None FINDINGS: Multiple dilated loops of small bowel visualized worrisome for small bowel obstruction. Transition po int of the obstruction appears to be in the region of the right abdomen where there is a focal dilate d loop of small bowel measuring up to 6 cm with large air-fluid level noted, and these findings are w orrisome for small bowel obstruction secondary to possible closed-loop obstruction. Surgical consulta tion recommended. No evidence for free air or pneumatosis. Liver, gallbladder, spleen, adrenal glands, pancreas unremarkable. No evidence hydronephrosis in the kidneys. Infrarenal abdominal aortic aneurysm measuring up to 4.7 x 4.1 cm in diameter. Bladder is unremarkable. Small to moderate amount of abdominal/pelvic ascites. IMPRESSION: Multiple dilated loops of small bowel visualized worrisome for small bowel obstruction. Transition po int of the obstruction appears to be in the region of the right abdomen where there is a focal dilate d loop of small bowel measuring up to 6 cm with large air-fluid level noted, and these findings are w orrisome for small bowel obstruction secondary to possible closed-loop obstruction. Surgical consulta tion recommended. No evidence for free air or pneumatosis.. Infrarenal abdominal aortic aneurysm measuring up to 4.7 x 4.1 cm in diameter. This document is electronically signed by Donna Garcia MD., Feb 09 2019 06:46:57 PM ET
[2019-02-09] MEDS: MORPHINE IV PRN (19:34)
[2019-02-09] MEDS: PROTONIX IV SCH (19:36)
--- NOTE | 2019-02-10 02:34 | XRay Report ---
PROCEDURE: XR CHEST 1V AP TECHNIQUE: Chest radiograph single view. HISTORY: Follow-up respiratory failure. COMPARISONS: Several priors, most recent dated February 09, 2019. FINDINGS: Heart: Borderline cardiomegaly. Mediastinum/Vessels: Central vascular congestion. Thoracic aorta atherosclerotic vascular calcificati ons. Lungs/Pleural space: No lobar consolidation or large pleural effusion.. Bony thorax: Multifocal degenerative changes. Life support devices: Endotracheal tube terminates approximately 4 cm proximal to joanne. Orogastric tube is coiled in the stomach. IMPRESSION: 1. Endotracheal and orogastric tubes appear well positioned. 2. Mild central vascular congestion, stable appearance. No lobar consolidation. This document is electronically signed by Buck Pate DO., Feb 10 2019 02:32:55 AM ET
[2019-02-10] MEDS: DUONEB *Not for PRN Use IH SCH ×4 (03:57→20:20)
[2019-02-10] MEDS: LASIX IV SCH (05:07)
[2019-02-10 05:35] LABS: Hematocrit 38.5 % (30.3-42.9); Hemoglobin 12.7 gm/dl (10.1-14.3); Mean Corpuscular HGB Conc 33 % (30-34); Mean Corpuscular Volume 84 fl (79-97); Red Blood Count 4.59 M/mm3 (3.65-5.03); Red Cell Distribution Width 17.7 % (13.2-15.2)
[2019-02-10 05:40] LABS: Platelet Count 94 K/mm3 (140-440)
[2019-02-10 05:56] LABS: BUN/Creatinine Ratio 52; Blood Urea Nitrogen 31 mg/dL (7-17); Calcium 9.3 mg/dL (8.4-10.2); Hemolysis Index 12
[2019-02-10 05:57] LABS: BUN/Creatinine Ratio 52; Blood Urea Nitrogen 31 mg/dL (7-17); Calcium 9.5 mg/dL (8.4-10.2); Hemolysis Index 6
--- NOTE | 2019-02-10 06:59 | Progress Note ---
Assessment and Plan Severe Sepsis with Shock Acute hypoxemic respiratory failure, on MVS Symptomatic anemia with positive stool guaiac. Acute chronic obstructive pulmonary disease exacerbation. Possible acute gastrointestinal bleed. Acute congestive heart failure exacerbation. Hypokalemia. Elevated serum troponin. Adult failure to thrive. Bowel rest and surgical consult If we are unable to initiate tube feedings in the next 48 hours, will need alternate sources of nutrition Aspiration precautions Bowel regimen Continue all other care as documented below Start [id number] while NPO -Continue full MVS, -Quick steroid taper in view of heart failure -Adjust minute ventilation for better acid-base -Wean supplemental oxygen to keep O2 sats 88-90% -Lung protective strategies -Oxygen restrictive strategies -Daily ABGs/CXR -VAP bundle addressed -Avoid nephrotoxic agents, adjust all medications for CrCL -Strict intake and output monitoring -Daily SAT's & SBT's -Sedation target for RASS 0 to -1 -Stress ulcer prophylaxis -VTE prophylaxis -Accuchecks with glycemic control. Target glucose of 140-180 mg/dL -Bronchodilators with pulmonary hygiene per RT -Maintenance of sleep -wake cycle -Mobility as tolerated by hemodynamics -Influenza and pneumonia vaccination per protocol ..care plan discussed at length with RN/RT at the bedside -updated her who was at the bedside PROGNOSIS: GUARDED CONDITION: CRITICAL CODE STATUS: FULL CODE The high probability of a clinically significant, sudden or life-threatening deterioration of the [respiratory, cardiovascular, gastrointestinal] system(s) required my full and direct attention, intervention and personal management. The aggregate critical care time was [35] minutes without overlap. Time includes spent on; [x] Data Review and interpretation [x] Patient assessment and monitoring of vital signs [x] Documentation [x] Medication orders and management Subjective Date of service: 02/10/19 Principal diagnosis: GI bleed Interval history: Patient is seen today for: Acute hypoxemic Resp failure; Symptomatic anemia; AE- COPD; G.I. Bleed; Acute congestive heart failure exacerbation; Hypotension; SIRS Seen and examined at bedside; 24-hour events reviewed; nursing and respiratory care staff consulted; no adverse overnight events reported to me;No reported fevers, no chills, sedated, vomiting yesterday, so SBT held. CT abdomen and pelvis done- showed probable SBO, NGT placed- currently to [facility] On full mechanical ventilator support Vitals, labs, medications, chart and imaging reviewed. Objective - Exam Narrative Exam: Gen: Intubated,chronically ill looking, no patient-ventilator dyssynchrony Thin, NGT to LIS ETT at 23cm at the lip, sedated HEENT: Normocephalic, atraumatic Neck: supple, no JVD Heart: S1 and S2 reg, no murmurs, rubs or gallop Lungs: Diminished AE bilaterally, Clear, no crackles, no wheeze Abd: soft, non tender, non distended, normal BS Ext: No edema, no clubbing, no cyanosis, Neuro: Intubated, sedated Vital Signs - 12hr 02/09/19 02/09/19 02/09/19 19:00 19:15 19:34 Temperature Pulse Rate 113 H 111 H Pulse Rate [ Anterior Bilateral Throughout] Pulse Rate [ 100 H From Monitor] Respiratory 23 16 20 Rate Respiratory Rate [Anterior Bilateral Throughout] Blood Pressure 132/88 O2 Sat by Pulse 97 98 Oximetry 02/09/19 02/09/19 02/09/19 19:47 19:53 19:56 Temperature 100.3 F H Pulse Rate 109 H Pulse Rate [ 111 H Anterior Bilateral Throughout] Pulse Rate [ From Monitor] Respiratory Rate Respiratory 20 Rate [Anterior Bilateral Throughout] Blood Pressure 132/88 O2 Sat by Pulse 98 Oximetry 02/09/19 02/09/19 02/09/19 20:00 20:04 20:20 Temperature Pulse Rate 109 H 104 H Pulse Rate [ Anterior Bilateral Throughout] Pulse Rate [ 105 H From Monitor] Respiratory 17 15 17 Rate Respiratory Rate [Anterior Bilateral Throughout] Blood Pressure 113/78 O2 Sat by Pulse 99 Oximetry 02/09/19 02/09/19 02/09/19 21:00 22:00 22:49 Temperature Pulse Rate 104 H 102 H 102 H Pulse Rate [ Anterior Bilateral Throughout] Pulse Rate [ From Monitor] Respiratory 17 14 Rate Respiratory Rate [Anterior Bilateral Throughout] Blood Pressure 125/80 116/75 116/75 O2 Sat by Pulse 98 99 Oximetry 02/09/19 02/09/19 02/09/19 23:00 23:10 23:35 Temperature 98.7 F Pulse Rate 100 H 100 H Pulse Rate [ Anterior Bilateral Throughout] Pulse Rate [ 102 H From Monitor] Respiratory 15 16 Rate Respiratory Rate [Anterior Bilateral Throughout] Blood Pressure 124/83 O2 Sat by Pulse 99 Oximetry 0502/10/19 02/10/19 23:36 00:00 01:00 Temperature Pulse Rate 104 H 98 H 97 H Pulse Rate [ Anterior Bilateral Throughout] Pulse Rate [ From Monitor] Respiratory 16 15 14 Rate Respiratory Rate [Anterior Bilateral Throughout] Blood Pressure 124/83 118/73 109/73 O2 Sat by Pulse 99 Oximetry 02/10/19 02/10/19 02/10/19 01:15 02:00 02:33 Temperature 99.9 F H Pulse Rate 105 H 95 H Pulse Rate [ 96 H Anterior Bilateral Throughout] Pulse Rate [ 100 H From Monitor] Respiratory 16 16 Rate Respiratory 14 Rate [Anterior Bilateral Throughout] Blood Pressure 114/70 O2 Sat by Pulse 99 99 Oximetry 02/10/19 02/10/19 02/10/19 03:00 03:15 04:00 Temperature Pulse Rate 99 H 105 H 86 Pulse Rate [ Anterior Bilateral Throughout] Pulse Rate [ 100 H From Monitor] Respiratory 14 16 14 Rate Respiratory Rate [Anterior Bilateral Throughout] Blood Pressure 116/76 114/70 O2 Sat by Pulse 99 Oximetry 02/10/19 02/10/19 02/10/19 05:00 05:10 05:39 Temperature Pulse Rate 109 H 109 H Pulse Rate [ Anterior Bilateral Throughout] Pulse Rate [ 100 H From Monitor] Respiratory 18 16 Rate Respiratory Rate [Anterior Bilateral Throughout] Blood Pressure 122/86 114/70 O2 Sat by Pulse 98 99 98 Oximetry CBC and BMP: 02/10/19 04:59 02/10/19 04:59 ABG, PT/INR, D-dimer: ABG POC ABG pH 7.518 (7.35-7.45) H 02/10/19 05:10 POC ABG pCO2 40.3 (35-45) 02/10/19 05:10 POC ABG pO2 173 (80-105) H 02/10/19 05:10 POC ABG HCO3 32.8 (22-26 mml/L) 02/10/19 05:10 POC ABG Total CO2 34 (23-27mmol/L) 02/10/19 05:10 POC ABG O2 Sat 100 02/10/19 05:10 PT/INR, D-dimer PT 19.3 Sec. (12.2-14.9) H 02/03/19 19:24 INR 1.52 (0.87-1.13) H 02/03/19 19:24 Abnormal lab findings: Abnormal Labs 02/03/19 02/03/19 02/03/19 02:57 18:06 18:06 WBC RBC 0.88 L Hgb 1.9 L* Hct 7.1 L* MCH 22 L MCHC 27 L RDW 23.3 H Plt Count 489 H [place] % (Auto) 10.1 H Lymph # 1.1 L Seg Neutrophils % 71.2 H Seg Neuts % (Manual) Lymphocytes % (Manual) Seg Neutrophils # Man Lymphocytes # (Manual) PT INR POC ABG pH POC ABG pCO2 POC ABG pO2 Sodium Potassium Chloride Carbon Dioxide BUN Creatinine Glucose POC Glucose Lactic Acid Calcium Phosphorus Troponin T C-Reactive Protein NT-Pro-B Natriuret Pep 9160 H Total Protein Albumin Triglycerides HDL Cholesterol Urine WBC (Auto) 7.0 H Crossmatch 02/03/19 02/03/19 02/03/19 18:06 18:08 18:08 WBC RBC Hgb Hct MCH MCHC RDW Plt Count [place] % (Auto) Lymph # Seg Neutrophils % Seg Neuts % (Manual) Lymphocytes % (Manual) Seg Neutrophils # Man Lymphocytes # (Manual) PT INR POC ABG pH POC ABG pCO2 POC ABG pO2 Sodium Potassium 3.3 L Chloride Carbon Dioxide 17 L BUN Creatinine Glucose POC Glucose Lactic Acid 9.90 H* Calcium 7.9 L Phosphorus Troponin T 0.134 H* C-Reactive Protein NT-Pro-B Natriuret Pep Total Protein 5.1 L Albumin 2.8 L Triglycerides 164 H HDL Cholesterol 31 L Urine WBC (Auto) Crossmatch See Detail 02/03/19 02/03/19 02/03/19 19:24 19:24 19:24 WBC RBC Hgb Hct MCH MCHC RDW Plt Count [place] % (Auto) Lymph # Seg Neutrophils % Seg Neuts % (Manual) Lymphocytes % (Manual) Seg Neutrophils # Man Lymphocytes # (Manual) PT 19.3 H INR 1.52 H POC ABG pH POC ABG pCO2 POC ABG pO2 Sodium Potassium Chloride Carbon Dioxide BUN Creatinine Glucose POC Glucose Lactic Acid 6.30 H* Calcium Phosphorus Troponin T 0.139 H* C-Reactive Protein NT-Pro-B Natriuret Pep Total Protein Albumin Triglycerides HDL Cholesterol Urine WBC (Auto) Crossmatch 02/03/19 02/03/19 02/04/19 20:30 23:36 01:18 WBC RBC Hgb Hct MCH MCHC RDW Plt Count [place] % (Auto) Lymph # Seg Neutrophils % Seg Neuts % (Manual) Lymphocytes % (Manual) Seg Neutrophils # Man Lymphocytes # (Manual) PT INR POC ABG pH 7.515 H POC ABG pCO2 POC ABG pO2 121 H Sodium Potassium Chloride Carbon Dioxide BUN Creatinine Glucose POC Glucose Lactic Acid 6.50 H* 5.70 H* Calcium Phosphorus Troponin T C-Reactive Protein NT-Pro-B Natriuret Pep Total Protein Albumin Triglycerides HDL Cholesterol Urine WBC (Auto) Crossmatch 02/04/19 02/04/19 02/04/19 04:35 04:35 04:35 WBC 17.5 H RBC Hgb Hct MCH 27 L MCHC RDW 15.9 H Plt Count [place] % (Auto) Lymph # Seg Neutrophils % Seg Neuts % (Manual) 96.0 H Lymphocytes % (Manual) 1.0 L Seg Neutrophils # Man 16.8 H Lymphocytes # (Manual) 0.2 L PT INR POC ABG pH POC ABG pCO2 POC ABG pO2 Sodium 147 H Potassium 3.2 L Chloride Carbon Dioxide 21 L BUN Creatinine Glucose 170 H POC Glucose Lactic Acid 3.60 H* Calcium 7.9 L Phosphorus Troponin T C-Reactive Protein NT-Pro-B Natriuret Pep Total Protein Albumin Triglycerides HDL Cholesterol Urine WBC (Auto) Crossmatch 02/04/19 02/04/19 02/04/19 10:59 17:07 17:07 WBC RBC Hgb Hct MCH MCHC RDW Plt Count [place] % (Auto) Lymph # Seg Neutrophils % Seg Neuts % (Manual) Lymphocytes % (Manual) Seg Neutrophils # Man Lymphocytes # (Manual) PT INR POC ABG pH POC ABG pCO2 POC ABG pO2 Sodium Potassium 3.1 L Chloride Carbon Dioxide BUN Creatinine Glucose POC Glucose Lactic Acid 2.30 H* Calcium Phosphorus Troponin T C-Reactive Protein 9.30 H NT-Pro-B Natriuret Pep Total Protein Albumin Triglycerides HDL Cholesterol Urine WBC (Auto) Crossmatch 02/04/19 02/04/19 02/05/19 17:15 21:04 00:05 WBC RBC Hgb Hct MCH MCHC RDW Plt Count [place] % (Auto) Lymph # Seg Neutrophils % Seg Neuts % (Manual) Lymphocytes % (Manual) Seg Neutrophils # Man Lymphocytes # (Manual) PT INR POC ABG pH 7.310 L POC ABG pCO2 POC ABG pO2 68 L Sodium Potassium Chloride Carbon Dioxide BUN Creatinine Glucose POC Glucose Lactic Acid 2.40 H* 2.70 H* Calcium Phosphorus Troponin T C-Reactive Protein NT-Pro-B Natriuret Pep Total Protein Albumin Triglycerides HDL Cholesterol Urine WBC (Auto) Crossmatch 02/05/19 02/05/19 02/05/19 04:41 04:41 12:54 WBC 15.1 H RBC Hgb Hct MCH MCHC RDW 16.6 H Plt Count [place] % (Auto) Lymph # Seg Neutrophils % Seg Neuts % (Manual) 90.0 H Lymphocytes % (Manual) 2.0 L Seg Neutrophils # Man 13.6 H Lymphocytes # (Manual) 0.3 L PT INR POC ABG pH POC ABG pCO2 POC ABG pO2 74 L Sodium 147 H Potassium Chloride 114.1 H Carbon Dioxide 20 L BUN 19 H Creatinine Glucose 192 H POC Glucose Lactic Acid Calcium 7.4 L Phosphorus Troponin T C-Reactive Protein NT-Pro-B Natriuret Pep Total Protein Albumin Triglycerides HDL Cholesterol Urine WBC (Auto) Crossmatch 02/06/19 02/06/19 02/06/19 01:46 11:42 11:42 WBC 21.1 H RBC Hgb Hct MCH MCHC RDW 17.0 H Plt Count [place] % (Auto) Lymph # Seg Neutrophils % Seg Neuts % (Manual) Lymphocytes % (Manual) Seg Neutrophils # Man Lymphocytes # (Manual) PT INR POC ABG pH POC ABG pCO2 34.4 L POC ABG pO2 56 L Sodium 151 H Potassium Chloride 112.1 H Carbon Dioxide BUN Creatinine Glucose 187 H POC Glucose Lactic Acid Calcium 8.1 L Phosphorus Troponin T C-Reactive Protein NT-Pro-B Natriuret Pep Total Protein Albumin Triglycerides HDL Cholesterol Urine WBC (Auto) Crossmatch 02/06/19 02/07/19 02/07/19 12:04 04:26 05:27 WBC 21.7 H RBC Hgb Hct MCH MCHC RDW 17.6 H Plt Count [place] % (Auto) Lymph # Seg Neutrophils % Seg Neuts % (Manual) 98.0 H Lymphocytes % (Manual) 1.0 L Seg Neutrophils # Man 21.3 H Lymphocytes # (Manual) 0.2 L PT INR POC ABG pH 7.481 H POC ABG pCO2 31.3 L POC ABG pO2 63 L 50 L Sodium Potassium Chloride Carbon Dioxide BUN Creatinine Glucose POC Glucose Lactic Acid Calcium Phosphorus Troponin T C-Reactive Protein NT-Pro-B Natriuret Pep Total Protein Albumin Triglycerides HDL Cholesterol Urine WBC (Auto) Crossmatch 02/07/19 02/07/19 02/07/19 05:27 05:29 23:07 WBC RBC Hgb Hct MCH MCHC RDW Plt Count [place] % (Auto) Lymph # Seg Neutrophils % Seg Neuts % (Manual) Lymphocytes % (Manual) Seg Neutrophils # Man Lymphocytes # (Manual) PT INR POC ABG pH POC ABG pCO2 POC ABG pO2 Sodium 147 H Potassium Chloride 108.4 H Carbon Dioxide BUN Creatinine 0.6 L Glucose 184 H POC Glucose 188 H 172 H Lactic Acid Calcium 8.3 L Phosphorus 1.50 L Troponin T C-Reactive Protein NT-Pro-B Natriuret Pep Total Protein Albumin Triglycerides HDL Cholesterol Urine WBC (Auto) Crossmatch 02/08/19 02/08/19 02/08/19 04:26 04:26 11:50 WBC 18.8 H RBC Hgb Hct MCH MCHC RDW 17.7 H Plt Count [place] % (Auto) Lymph # Seg Neutrophils % Seg Neuts % (Manual) Lymphocytes % (Manual) Seg Neutrophils # Man Lymphocytes # (Manual) PT INR POC ABG pH POC ABG pCO2 POC ABG pO2 Sodium Potassium Chloride Carbon Dioxide BUN 19 H Creatinine 0.6 L Glucose 190 H POC Glucose 185 H Lactic Acid Calcium 8.2 L Phosphorus Troponin T C-Reactive Protein NT-Pro-B Natriuret Pep Total Protein Albumin Triglycerides HDL Cholesterol Urine WBC (Auto) Crossmatch 02/08/19 02/08/19 02/08/19 12:01 17:44 18:52 WBC RBC Hgb Hct MCH MCHC RDW Plt Count [place] % (Auto) Lymph # Seg Neutrophils % Seg Neuts % (Manual) Lymphocytes % (Manual) Seg Neutrophils # Man Lymphocytes # (Manual) PT INR POC ABG pH POC ABG pCO2 POC ABG pO2 Sodium Potassium Chloride Carbon Dioxide BUN Creatinine Glucose POC Glucose 186 H 143 H Lactic Acid Calcium Phosphorus Troponin T 0.058 H D C-Reactive Protein NT-Pro-B Natriuret Pep Total Protein Albumin Triglycerides HDL Cholesterol Urine WBC (Auto) Crossmatch 02/08/19 02/09/19 02/09/19 23:24 03:57 03:57 WBC 20.3 H RBC Hgb Hct MCH MCHC RDW 18.0 H Plt Count 92 L [place] % (Auto) Lymph # Seg Neutrophils % Seg Neuts % (Manual) Lymphocytes % (Manual) Seg Neutrophils # Man Lymphocytes # (Manual) PT INR POC ABG pH POC ABG pCO2 POC ABG pO2 Sodium Potassium Chloride Carbon Dioxide BUN 29 H Creatinine 0.5 L Glucose 172 H POC Glucose 205 H Lactic Acid Calcium Phosphorus Troponin T C-Reactive Protein NT-Pro-B Natriuret Pep Total Protein Albumin Triglycerides HDL Cholesterol Urine WBC (Auto) Crossmatch 02/09/19 02/09/19 02/09/19 04:49 12:11 17:27 WBC RBC Hgb Hct MCH MCHC RDW Plt Count [place] % (Auto) Lymph # Seg Neutrophils % Seg Neuts % (Manual) Lymphocytes % (Manual) Seg Neutrophils # Man Lymphocytes # (Manual) PT INR POC ABG pH 7.473 H POC ABG pCO2 POC ABG pO2 Sodium Potassium Chloride Carbon Dioxide BUN Creatinine Glucose POC Glucose 136 H 149 H Lactic Acid Calcium Phosphorus Troponin T C-Reactive Protein NT-Pro-B Natriuret Pep Total Protein Albumin Triglycerides HDL Cholesterol Urine WBC (Auto) Crossmatch 02/10/19 02/10/19 02/10/19 04:59 04:59 04:59 WBC 16.5 H RBC Hgb Hct MCH MCHC RDW 17.7 H Plt Count 94 L [place] % (Auto) Lymph # Seg Neutrophils % Seg Neuts % (Manual) Lymphocytes % (Manual) Seg Neutrophils # Man Lymphocytes # (Manual) PT INR POC ABG pH POC ABG pCO2 POC ABG pO2 Sodium Potassium Chloride Carbon Dioxide BUN 31 H 31 H Creatinine 0.6 L 0.6 L Glucose 149 H 152 H POC Glucose Lactic Acid Calcium Phosphorus Troponin T C-Reactive Protein NT-Pro-B Natriuret Pep Total Protein Albumin Triglycerides HDL Cholesterol Urine WBC (Auto) Crossmatch 02/10/19 05:10 WBC RBC Hgb Hct MCH MCHC RDW Plt Count [place] % (Auto) Lymph # Seg Neutrophils % Seg Neuts % (Manual) Lymphocytes % (Manual) Seg Neutrophils # Man Lymphocytes # (Manual) PT INR POC ABG pH 7.518 H POC ABG pCO2 POC ABG pO2 173 H Sodium Potassium Chloride Carbon Dioxide BUN Creatinine Glucose POC Glucose Lactic Acid Calcium Phosphorus Troponin T C-Reactive Protein NT-Pro-B Natriuret Pep Total Protein Albumin Triglycerides HDL Cholesterol Urine WBC (Auto) Crossmatch
[2019-02-10] MEDS: BROVANA NEBU IH SCH ×2 (07:25→20:20)
[2019-02-10] MEDS: PULMICORT IH SCH ×2 (07:25→20:20)
[2019-02-10] MEDS: D5W/NS W/KCL 20MEQ 20 MEQ/1,000 ML BAG IV SCH ×2 (08:00→19:15)
--- NOTE | 2019-02-10 09:12 | Progress Note ---
Assessment and Plan Assessment and plan: 1. Acute encephalopathy, 2. Acute hypoxic respiratory failure with Severe respiratory alkalosis - s/p intubation 02/06 3. Acute GI bleed, possible PUD 4. Acute blood loss anemia (due to #2) 5. Hypokalemia, cont replete 6. CHF with acute exacerbation ( EF 20-25%) 7. SIRS, source of infection unclear 8. Severe protein calorie malnutrition 9. Hypernatremia, now resolved Vomiting Possible small bowel obstruction on CT - Surg consulted Fever Plan: Monitor at ICU Surg consulted. I discussed with Dr. Lew 02/09 Now intubated, was on BIPAP GI following for acute GI bleed, s/p 5 units of packed RBCs monitor h/h, place on iv lasix Avoid NSAIDs, follow Cx, iv abx, BMP in the a.m. replete electrolytes, No chemical DVT prophylaxis (GI bleed) The high probability of a clinically significant, sudden or life threatening deterioration of the [multiple] system(s) required my full and direct attention, intervention and personal management. The aggregate critical care time was [34] minutes. This time is in addition to time spent performing reported procedures but includes the following: [x] Data Review and interpretation [x] Patient assessment and monitoring of vital signs [x] Documentation [x] Medication orders and management History Interval history: Intubated for worsening shortness of breath Fever Repeated vomiting yesterday CT Abd 02/09 with possible SBO Hospitalist Physical - Physical exam Narrative exam: Gen: Intubated, malnourished HEENT: Normocephalic, atraumatic Neck: supple, no JVD Heart: S1 and S2 reg, no murmurs, rubs or gallop Lungs: Clear, no crackles, no wheeze Abd: soft, non tender, mild distended, hypoactive BS Ext: No edema, no clubbing, no cyanosis, Neuro: Intubated, sedated - Constitutional Vitals: Temp Pulse Resp BP Pulse Ox 97.6 F 102 H 16 114/79 98 02/10/19 08:00 02/10/19 08:00 02/10/19 08:00 02/10/19 08:00 02/10/19 08:00 General appearance: Present: cachectic Results - Labs CBC & Chem 7: 02/10/19 04:59 02/10/19 04:59 Labs: Laboratory Last Values WBC 16.5 K/mm3 (4.5-11.0) H 02/10/19 04:59 RBC 4.59 M/mm3 (3.65-5.03) 02/10/19 04:59 Hgb 12.7 gm/dl (10.1-14.3) 02/10/19 04:59 Hct 38.5 % (30.3-42.9) 02/10/19 04:59 MCV 84 fl (79-97) 02/10/19 04:59 MCH 28 pg (28-32) 02/10/19 04:59 MCHC 33 % (30-34) 02/10/19 04:59 RDW 17.7 % (13.2-15.2) H 02/10/19 04:59 Plt Count 94 K/mm3 (140-440) L 02/10/19 04:59 Lymph % (Auto) 17.6 % (13.4-35.0) 02/03/19 18:06 [place] % (Auto) 10.1 % (0.0-7.3) H 02/03/19 18:06 Eos % (Auto) 0.1 % (0.0-4.3) 02/03/19 18:06 Baso % (Auto) 1.0 % (0.0-1.8) 02/03/19 18:06 Lymph # 1.1 K/mm3 (1.2-5.4) L 02/03/19 18:06 [place] # 0.6 K/mm3 (0.0-0.8) 02/03/19 18:06 Eos # 0.0 K/mm3 (0.0-0.4) 02/03/19 18:06 Baso # 0.1 K/mm3 (0.0-0.1) 02/03/19 18:06 Add Manual Diff Complete 02/07/19 05:27 Total Counted 100 02/07/19 05:27 Seg Neutrophils % Graphic Engineer 02/07/19 05:27 Seg Neuts % (Manual) 98.0 % (40.0-70.0) H 02/07/19 05:27 0 % 02/07/19 05:27 1.0 % (13.4-35.0) L 02/07/19 05:27 Reactive Lymphs % (Man) 0 % 02/07/19 05:27 1.0 % (0.0-7.3) 02/07/19 05:27 0 % (0.0-4.3) 02/07/19 05:27 0 % (0.0-1.8) 02/07/19 05:27 0 % 02/07/19 05:27 0 % 02/07/19 05:27 0 % 02/07/19 05:27 0 % 02/07/19 05:27 Nucleated RBC % Not Reportable 02/07/19 05:27 Seg Neutrophils # 4.5 K/mm3 (1.8-7.7) 02/03/19 18:06 Seg Neutrophils # Man 21.3 K/mm3 (1.8-7.7) H 02/07/19 05:27 Band Neutrophils # 0.0 K/mm3 02/07/19 05:27 0.2 K/mm3 (1.2-5.4) L 02/07/19 05:27 Abs React Lymphs (Man) 0.0 K/mm3 02/07/19 05:27 0.2 K/mm3 (0.0-0.8) 02/07/19 05:27 0.0 K/mm3 (0.0-0.4) 02/07/19 05:27 0.0 K/mm3 (0.0-0.1) 02/07/19 05:27 0.0 K/mm3 02/07/19 05:27 0.0 K/mm3 02/07/19 05:27 0.0 K/mm3 02/07/19 05:27 Blast Cells # 0.0 K/mm3 02/07/19 05:27 WBC Morphology Not Reportable 02/07/19 05:27 Hypersegmented Neuts Not Reportable 02/07/19 05:27 Hyposegmented Neuts Not Reportable 02/07/19 05:27 Hypogranular Neuts Not Reportable 02/07/19 05:27 Not Reportable 02/07/19 05:27 Not Reportable 02/07/19 05:27 Not Reportable 02/07/19 05:27 Not Reportable 02/07/19 05:27 Not Reportable 02/07/19 05:27 Not Reportable 02/07/19 05:27 Consistent w auto 02/07/19 05:27 Not Reportable 02/07/19 05:27 Plt Clumps, EDTA Not Reportable 02/07/19 05:27 Not Reportable 02/07/19 05:27 Not Reportable 02/07/19 05:27 Not Reportable 02/07/19 05:27 Plt Morphology Comment Not Reportable 02/07/19 05:27 RBC Morphology Not Reportable 02/07/19 05:27 Dimorphic RBCs Not Reportable 02/07/19 05:27 Not Reportable 02/07/19 05:27 Not Reportable 02/07/19 05:27 Few 02/07/19 05:27 Few 02/07/19 05:27 Not Reportable 02/07/19 05:27 Not Reportable 02/07/19 05:27 Not Reportable 02/07/19 05:27 Not Reportable 02/07/19 05:27 Not Reportable 02/07/19 05:27 Not Reportable 02/07/19 05:27 Not Reportable 02/07/19 05:27 Not Reportable 02/07/19 05:27 Not Reportable 02/07/19 05:27 Not Reportable 02/07/19 05:27 Not Reportable 02/07/19 05:27 Not Reportable 02/07/19 05:27 Not Reportable 02/07/19 05:27 Not Reportable 02/07/19 05:27 Not Reportable 02/07/19 05:27 Acanthocytes (Spur) Not Reportable 02/07/19 05:27 Rouleaux Not Reportable 02/07/19 05:27 Not Reportable 02/07/19 05:27 Not Reportable 02/07/19 05:27 Not Reportable 02/07/19 05:27 Not Reportable 02/07/19 05:27 Hem Pathologist Commnt No 02/07/19 05:27 PT 19.3 Sec. (12.2-14.9) H 02/03/19 19:24 INR 1.52 (0.87-1.13) H 02/03/19 19:24 APTT 30.3 Sec. (24.2-36.6) 02/03/19 19:24 POC ABG pH 7.518 (7.35-7.45) H 02/10/19 05:10 POC ABG pCO2 40.3 (35-45) 02/10/19 05:10 POC ABG pO2 173 (80-105) H 02/10/19 05:10 POC ABG HCO3 32.8 (22-26 mml/L) 02/10/19 05:10 POC ABG Total CO2 34 (23-27mmol/L) 02/10/19 05:10 POC ABG O2 Sat 100 02/10/19 05:10 POC ABG Base Excess 10 ((-2) - (+3)mmol/L) 02/10/19 05:10 40 % 02/10/19 05:10 Sodium 142 mmol/L (137-145) 02/10/19 04:59 Sodium 144 mmol/L (137-145) 02/10/19 04:59 Potassium 4.0 mmol/L (3.6-5.0) 02/10/19 04:59 Potassium 4.0 mmol/L (3.6-5.0) 02/10/19 04:59 Chloride 101.4 mmol/L (98-107) 02/10/19 04:59 Chloride 102.7 mmol/L (98-107) 02/10/19 04:59 Carbon Dioxide 28 mmol/L (22-30) 02/10/19 04:59 Carbon Dioxide 30 mmol/L (22-30) 02/10/19 04:59 15 mmol/L 02/10/19 04:59 17 mmol/L 02/10/19 04:59 BUN 31 mg/dL (7-17) H 02/10/19 04:59 BUN 31 mg/dL (7-17) H 02/10/19 04:59 0.6 mg/dL (0.7-1.2) L 02/10/19 04:59 0.6 mg/dL (0.7-1.2) L 02/10/19 04:59 Estimated GFR > 60 ml/min 02/10/19 04:59 Estimated GFR > 60 ml/min 02/10/19 04:59 52 % 02/10/19 04:59 52 % 02/10/19 04:59 Glucose 149 mg/dL (65-100) H 02/10/19 04:59 Glucose 152 mg/dL (65-100) H 02/10/19 04:59 POC Glucose 149 (70-105) H 02/09/19 17:27 Lactic Acid 1.70 mmol/L (0.7-2.0) 02/05/19 04:41 Calcium 9.3 mg/dL (8.4-10.2) 02/10/19 04:59 Calcium 9.5 mg/dL (8.4-10.2) 02/10/19 04:59 Phosphorus 4.00 mg/dL (2.5-4.5) 02/10/19 04:59 Magnesium 2.00 mg/dL (1.7-2.3) 02/10/19 04:59 0.30 mg/dL (0.1-1.2) 02/03/19 18:08 AST 35 units/L (5-40) 02/03/19 18:08 ALT 27 units/L (7-56) 02/03/19 18:08 117 units/L (35-129) 02/03/19 18:08 0.058 ng/mL (0.00-0.029) H D 02/08/19 18:52 9.30 mg/dL (0.00-1.30) H 02/04/19 17:07 NT-Pro-B Natriuret Pep 9160 pg/mL (0-900) H 02/03/19 18:06 5.1 g/dL (6.3-8.2) L 02/03/19 18:08 2.8 g/dL (3.9-5) L 02/03/19 18:08 1.2 % 02/03/19 18:08 Triglycerides 164 mg/dL (2-149) H 02/03/19 18:08 Cholesterol 125 mg/dL (50-199) 02/03/19 18:08 75 mg/dL (50-130) 02/03/19 18:08 31 mg/dL (40-59) L 02/03/19 18:08 4.03 % 02/03/19 18:08 Yellow (Yellow) 02/03/19 02:57 Clear (Clear) 02/03/19 02:57 6.0 (5.0-7.0) 02/03/19 02:57 Ur Specific [place] 1.011 (1.003-1.030) 02/03/19 02:57 <15 mg/dl mg/dL (Negative) 02/03/19 02:57 Neg mg/dL (Negative) 02/03/19 02:57 Neg mg/dL (Negative) 02/03/19 02:57 Neg (Negative) 02/03/19 02:57 Neg (Negative) 02/03/19 02:57 Neg (Negative) 02/03/19 02:57 < 2.0 mg/dL (<2.0) 02/03/19 02:57 Ur Leukocyte Esterase Neg (Negative) 02/03/19 02:57 7.0 /HPF (0.0-6.0) H 02/03/19 02:57 8.0 /HPF (0.0-6.0) 02/03/19 02:57 U Epithel Cells (Auto) 1.0 /HPF (0-13.0) 02/03/19 02:57 2+ /HPF (Negative) 02/03/19 02:57 Hyaline Casts 22 /LPF 02/03/19 02:57 3+ /HPF 02/03/19 02:57 Blood Type A POSITIVE 02/03/19 18:06 Antibody Screen Negative 02/03/19 18:06 Crossmatch See Detail 02/03/19 18:06 Active Medications - Current Medications Current Medications: Generic Name Dose Route Start Last Admin Trade Name Freq PRN Reason Stop Dose Admin Albuterol/Ipratropium 1 ampul 02/04/19 02:00 02/10/19 07:26 Duoneb *Not For Prn Use* IH Not Given Q6HRT JOEL Lipase/Protease/Amylase 1 each 02/08/19 16:37 Pancrebrant Smith 10,500 Unit FEEDTUBE PRN PRN For Clogged Feeding Tube Arformoterol Tartrate 15 mcg 02/04/19 14:15 02/10/19 07:25 Brovana Nebu IH 15 mcg Q12HRT JOEL Administration Budesonide 0.5 mg 02/04/19 20:00 02/10/19 07:25 Pulmicort IH 0.5 mg Q12HRT JOEL Administration Fentanyl 50 mcg 02/06/19 10:50 Sublimaze IV Q10MIN PRN ANALGESIA Furosemide 40 mg 02/06/19 06:00 02/10/19 05:07 Lasix IV 40 mg 0600,1800 JOEL Administration Hydrophilic Ointment 1 applic 02/06/19 10:50 Vaseline Lip Therapy TP Q2HR PRN Dry Lips Fentanyl Citrate 2,000 mcg in 100 mls @ 2.075 mls/hr 02/06/19 11:00 02/09/19 17:15 Fentanyl Drip Premix IV 1 mcg/kg/hr TITR JOEL 2.075 mls/hr Administration Protocol 1 MCG/KG/HR Potassium Chloride/Dextrose/Sod Cl 20 meq in 1,000 mls @ 100 mls/hr 02/09/19 1 9:00 02/10/19 08:00 D5w/Ns W/Kcl 20meq IV 100 mls/hr DIRECT JOEL Administration Methylprednisolone Sodium Succinate 40 mg 02/04/19 15:00 02/09/19 21:36 Solu-Medrol IV 40 mg Q12HR JOEL Administration Morphine Sulfate 2 mg 02/04/19 12:51 02/09/19 19:34 Morphine IV 2 mg Q4H PRN Administration Pain, Moderate (4-6) Multi-Ingred Cream/Lotion/Oil/Oint 1 applic 02/06/19 10:50 Artificial Tears Ophth Oint OU Q4HR PRN Dry Eye(s) Ondansetron HCl 4 mg 02/03/19 20:27 02/09/19 16:37 Zofran IV 4 mg Q8H PRN Administration Nausea And Vomiting Pantoprazole Sodium 40 mg 02/09/19 19:00 02/09/19 19:36 Protonix IV 40 mg QDAY JOEL Administration Simple Syrup 15 ml 02/08/19 16:37 Simple Syrup FEEDTUBE PRN PRN Hypoglycemia Simple Syrup 30 ml 02/08/19 16:37 Simple Syrup FEEDTUBE PRN PRN Hypoglycemia Sodium Bicarbonate 325 mg 02/08/19 16:37 Sodium Bicarbonate FEEDTUBE PRN PRN For Clogged Feeding Tube Sodium Chloride 10 ml 02/03/19 22:00 02/09/19 21:36 Sodium Chloride Flush Syringe 10 Ml IV 10 ml BID JOEL Administration Sodium Chloride 10 ml 02/03/19 20:27 Sodium Chloride Flush Syringe 10 Ml IV PRN PRN LINE FLUSH Nutrition/Malnutrition Assess - Dietary Evaluation Nutrition/Malnutrition Findings: Nutrition Notes Start: 02/04/19 14:37 Freq: Status: Active Protocol: Document 02/08/19 16:39 [email or web address] (Rec: 02/08/19 16:44 LARS [id number] [email or web address]) Nutrition Notes Initial or Follow up Brief Note Current Diagnosis Heart Failure,Respiratory Failure Other Pertinent Diagnosis AMS Current Diet TF - Vital AF 1.2 at 50ml/hr Labs/Tests BUN 19 BG 190 Pertinent Medications Reviewed Height 5 ft 3 in Weight 39.8 kg [place] Body Weight (kg) 52.27 BMI 15.5 Subjective/Other Information Pt tolerating TF at goal rate; remains on vent support. Burn Absent Trauma Absent #1 Nutrition Diagnosis Inadequate oral intake Diagnosis Progress(for reassessment Continues documentation) Is patient on ventilator? Yes Is Patient Ambulatory and/or Out of Bed No REE-([facility]-confined to bed) 1070.796 Kcal/Kg value to use for calculation 35 Approximate Energy Requirements Using 1393 kcal/Kg Calculation Used for Recommendations Kcal/kg Additional Notes Pro needs 1.2-2g/k-80g/ day Fluid needs 1ml/kcal Nutrition Intervention Nutrition Support: Change TF formula to Glucerna 1.2 at 45ml/hr with 75ml water flush q4h. Kcal 1,296 Protein (gm) 65 Carbohydrates (gm) 124 Fluid (mL) 869 Fiber (gm) 17 Goal #1 TF tolerance Goal #2 TF to meet 90-100% energy and pro needs Follow-Up By: 02/11/19 Additional Comments F/U: TF formula change/ tolerance, vent status
--- NOTE | 2019-02-10 10:07 | XRay Report ---
PROCEDURE: XR ABDOMEN 1V AP TECHNIQUE: Portable supine abdomen HISTORY: bowel obstruction COMPARISON: 02/09/2019 FINDINGS: There are dilated bowel loops including a markedly dilated loop on the right side. Findings could ref lect bowel obstruction. Nasogastric tube terminates in the abdomen. Aortoiliac atherosclerotic calcifications noted with appearance suggesting probable aortic aneurysm. IMPRESSION: No significant change in dilated bowel suspicious for small bowel obstruction. Aortoiliac atherosclerotic calcifications with probable abdominal aortic aneurysm. This document is electronically signed by Claudia Staples MD., Feb 10 2019 10:05:50 AM ET
[2019-02-10] MEDS: PROTONIX IV SCH (10:29)
[2019-02-10] MEDS: SOLU-Medrol IV SCH ×2 (10:30→21:40)
[2019-02-10] MEDS: SODIUM CHLORIDE FLUSH SYRINGE 10 ML IV SCH ×2 (10:30→21:40)
--- NOTE | 2019-02-10 12:27 | Consultation ---
History of Present Illness Consult date: 02/10/19 Reason for consult: abdominal pain Chief complaint: n/v - History of present illness History of present illness: 68 yo F with CHF, COPD presented to ER with decreased responsiveness. She is now on the ventilator and on history is obtained from at bedside and chart. In ER Hb was 1.9. She was transfused 5 Units PRBC and Hb is now stable. She was intubated when she developed acute respiratory failure and has been managed in the ICU. Patient was on TF via dobhoff and was tolerating but starting vomiting yesterday. TF were stopped and imaging obtained. Imaging showed small bowel obstruction. Patient does admit to abdominal pain. NGT was placed yesterday but was not hooked up correctly so no output was obtained until this am. Past History Past Medical History: COPD, heart failure, hypertension Past Surgical History: No surgical history Social history: , lives with family (spouse) Family history: no significant family history Medications and Allergies Allergies Allergy/AdvReac Type Severity Reaction Status Date / Time No Known Allergies Allergy Unverified 02/03/19 18:28 Home Medications Medication Instructions Recorded Confirmed Last Taken Type No Known Home Medications [No 02/07/19 02/07/19 Unknown History Reported Home Medications] Active Meds: Active Medications Albuterol/Ipratropium (Duoneb *Not For Prn Use*) 1 ampul IH Q6HRT [facility] Last Admin: 02/10/19 07:26 Dose: Not Given Documented by: Lipase/Protease/Amylase (Juan Smith 10,500 Unit) 1 each FEEDTUBE PRN PRN PRN Reason: For Clogged Feeding Tube Arformoterol Tartrate (Brovana Nebu) 15 mcg IH Q12HRT [facility] Last Admin: 02/10/19 07:25 Dose: 15 mcg Documented by: Budesonide (Pulmicort) 0.5 mg IH Q12HRT [facility] Last Admin: 02/10/19 07:25 Dose: 0.5 mg Documented by: Fentanyl (Sublimaze) 50 mcg IV Q10MIN PRN PRN Reason: ANALGESIA Furosemide (Lasix) 40 mg IV 0600,1800 [facility] Last Admin: 02/10/19 05:07 Dose: 40 mg Documented by: Hydrophilic Ointment (Vaseline Lip Therapy) 1 applic TP Q2HR PRN PRN Reason: Dry Lips Fentanyl Citrate (Fentanyl ip Premix) 2,000 mcg in 100 mls @ 2.075 mls/hr IV TITR [facility]; Protocol Last Admin: 02/09/19 17:15 Dose: 1 mcg/kg/hr, 2.075 mls/hr Documented by: Potassium Chloride/Dextrose/Sod Cl (D5w/Ns W/Kcl 20meq) 20 meq in 1,000 mls @ 100 mls/hr IV DIRECT [facility] Last Admin: 02/10/19 08:00 Dose: 100 mls/hr Documented by: Methylprednisolone Sodium Succinate (Solu-Medrol) 40 mg IV Q12HR [facility] Last Admin: 02/10/19 10:30 Dose: 40 mg Documented by: Morphine Sulfate (Morphine) 2 mg IV Q4H PRN PRN Reason: Pain, Moderate (4-6) Last Admin: 02/09/19 19:34 Dose: 2 mg Documented by: Multi-Ingred Cream/Lotion/Oil/Oint (Artificial Tears Ophth Oint) 1 applic OU Q4HR PRN PRN Reason: Dry Eye(s) Ondansetron HCl (Zofran) 4 mg IV Q8H PRN PRN Reason: Nausea And Vomiting Last Admin: 02/09/19 16:37 Dose: 4 mg Documented by: Pantoprazole Sodium (Protonix) 40 mg IV QDAY [facility] Last Admin: 02/10/19 10:29 Dose: 40 mg Documented by: Simple Syrup (Simple Syrup) 15 ml FEEDTUBE PRN PRN PRN Reason: Hypoglycemia Simple Syrup (Simple Syrup) 30 ml FEEDTUBE PRN PRN PRN Reason: Hypoglycemia Sodium Bicarbonate (Sodium Bicarbonate) 325 mg FEEDTUBE PRN PRN PRN Reason: For Clogged Feeding Tube Sodium Chloride (Sodium Chloride Flush Syringe 10 Ml) 10 ml IV BID [facility] Last Admin: 02/10/19 10:30 Dose: 10 ml Documented by: Sodium Chloride (Sodium Chloride Flush Syringe 10 Ml) 10 ml IV PRN PRN PRN Reason: LINE FLUSH Review of Systems ROS unobtainable: due to endotracheal tube Exam Vital Signs Pulse 92 H 02/03/19 17:42 Narrative exam: Gen: Intubated, awake on vent ENT: ETT and NGT in place. NGT with bilious drainage CV: s1, s2+ Resp: on vent Abd: soft, distended, RLQ TTP. no r/r/g Ext: No c/c/e Results - Labs 02/10/19 04:59 02/10/19 04:59 Abnormal lab results 02/09/19 02/10/19 02/10/19 Range/Units 17:27 04:59 04:59 WBC 16.5 H (4.5-11.0) K/mm3 RDW 17.7 H (13.2-15.2) % Plt Count 94 L (140-440) K/mm3 POC ABG pH (7.35-7.45) POC ABG pO2 (80-105) BUN 31 H (7-17) mg/dL Creatinine 0.6 L (0.7-1.2) mg/dL Glucose 149 H (65-100) mg/dL POC Glucose 149 H (70-105) 02/10/19 02/10/19 Range/Units 04:59 05:10 WBC (4.5-11.0) K/mm3 RDW (13.2-15.2) % Plt Count (140-440) K/mm3 POC ABG pH 7.518 H (7.35-7.45) POC ABG pO2 173 H (80-105) BUN 31 H (7-17) mg/dL Creatinine 0.6 L (0.7-1.2) mg/dL Glucose 152 H (65-100) mg/dL POC Glucose (70-105) Diabetes panel 02/10/19 02/10/19 Range/Units 04:59 04:59 Sodium 142 144 (137-145) mmol/L Potassium 4.0 4.0 (3.6-5.0) mmol/L Chloride 101.4 102.7 (98-107) mmol/L Carbon Dioxide 28 30 (22-30) mmol/L BUN 31 H 31 H (7-17) mg/dL Creatinine 0.6 L 0.6 L (0.7-1.2) mg/dL Glucose 149 H 152 H (65-100) mg/dL Calcium 9.3 9.5 (8.4-10.2) mg/dL Calcium panel 02/10/19 02/10/19 Range/Units 04:59 04:59 Calcium 9.3 9.5 (8.4-10.2) mg/dL Phosphorus 4.00 (2.5-4.5) mg/dL Pituitary panel 02/10/19 02/10/19 Range/Units 04:59 04:59 Sodium 142 144 (137-145) mmol/L Potassium 4.0 4.0 (3.6-5.0) mmol/L Chloride 101.4 102.7 (98-107) mmol/L Carbon Dioxide 28 30 (22-30) mmol/L BUN 31 H 31 H (7-17) mg/dL Creatinine 0.6 L 0.6 L (0.7-1.2) mg/dL Glucose 149 H 152 H (65-100) mg/dL Calcium 9.3 9.5 (8.4-10.2) mg/dL Adrenal panel 02/10/19 02/10/19 Range/Units 04:59 04:59 Sodium 142 144 (137-145) mmol/L Potassium 4.0 4.0 (3.6-5.0) mmol/L Chloride 101.4 102.7 (98-107) mmol/L Carbon Dioxide 28 30 (22-30) mmol/L BUN 31 H 31 H (7-17) mg/dL Creatinine 0.6 L 0.6 L (0.7-1.2) mg/dL Glucose 149 H 152 H (65-100) mg/dL Calcium 9.3 9.5 (8.4-10.2) mg/dL - Imaging Abdominal x-ray: report reviewed, image reviewed CT scan - abdomen: report reviewed, image reviewed CT scan - pelvis: report reviewed, image reviewed Assessment and Plan 68 yo F with 1. ARF on vent 2. anemia 3. GIB 4. n/v, SBO 5. hx CHF, EF 20-25% Plan: 1. NPO 2. NGT to LIWS 3. IVF 4. protonix IV 5. repeat obstruction series in am Discussed surgery with patient and her at the bedside. Patient shook her head NO when I asked if she would want surgery. concurred that patient would not want surgery unless it was an absolute emergency. I discussed the plan and findings of the imaging with patient's daughter Sherie at the bedside. If patient does not improve in the next 24-48 hours or condition worsens, may need to consider surgical intervention. Explained that patient has decreased cardiac function. Thank you, please call with questions.
--- NOTE | 2019-02-10 15:14 | Progress Note ---
Assessment and Plan 1. Hypernatremia: High sodium is likely from diuretics. Sodium level is better. Continue water flushes. Monitor Sodium level. 2. FEN: Volume overload, on IV Lasix. Monitor lytes. 3. Respiratory failure: COPD exacerbation. On vent. 4. Suspected GI bleed: Followed by GI. 5. Leukocytosis. Subjective Date of service: 02/10/19 Principal diagnosis: GI bleed Interval history: Patient was seen and examined at the bedside. Objective - Vital Signs Vital signs: Vital Signs - 12hr 02/10/19 02/10/19 02/10/19 03:15 04:00 05:00 Temperature Pulse Rate 105 H 86 109 H Pulse Rate [ Anterior Bilateral Throughout] Pulse Rate [ 100 H From Monitor] Respiratory 16 14 18 Rate Respiratory Rate [Anterior Bilateral Throughout] Blood Pressure 114/70 122/86 O2 Sat by Pulse 99 98 Oximetry 02/10/19 02/10/19 02/10/19 05:10 05:39 06:00 Temperature Pulse Rate 109 H 106 H Pulse Rate [ Anterior Bilateral Throughout] Pulse Rate [ 100 H From Monitor] Respiratory 16 18 Rate Respiratory Rate [Anterior Bilateral Throughout] Blood Pressure 114/70 122/77 O2 Sat by Pulse 99 98 Oximetry 02/10/19 02/10/19 02/10/19 07:00 07:25 07:35 Temperature Pulse Rate 113 H 102 H Pulse Rate [ 98 H 100 H Anterior Bilateral Throughout] Pulse Rate [ From Monitor] Respiratory 17 Rate Respiratory 18 16 Rate [Anterior Bilateral Throughout] Blood Pressure 114/82 114/82 O2 Sat by Pulse 98 Oximetry 02/10/19 02/10/19 02/10/19 07:49 08:00 08:50 Temperature 97.6 F Pulse Rate 108 H 102 H 102 H Pulse Rate [ Anterior Bilateral Throughout] Pulse Rate [ 102 H From Monitor] Respiratory 19 14 Rate Respiratory Rate [Anterior Bilateral Throughout] Blood Pressure 107/76 114/79 O2 Sat by Pulse 99 98 Oximetry 02/10/19 02/10/19 02/10/19 09:00 10:00 11:00 Temperature Pulse Rate 100 H 94 H 89 Pulse Rate [ Anterior Bilateral Throughout] Pulse Rate [ From Monitor] Respiratory 12 12 11 L Rate Respiratory Rate [Anterior Bilateral Throughout] Blood Pressure 107/76 116/73 115/74 O2 Sat by Pulse 98 Oximetry 02/10/19 02/10/19 02/10/19 11:50 12:00 13:00 Temperature 98.1 F Pulse Rate 90 89 97 H Pulse Rate [ Anterior Bilateral Throughout] Pulse Rate [ 89 From Monitor] Respiratory 12 12 15 Rate Respiratory Rate [Anterior Bilateral Throughout] Blood Pressure 115/74 125/79 134/85 O2 Sat by Pulse 99 99 98 Oximetry 02/10/19 02/10/19 13:43 13:53 Temperature Pulse Rate Pulse Rate [ 98 H 90 Anterior Bilateral Throughout] Pulse Rate [ From Monitor] Respiratory Rate Respiratory 16 14 Rate [Anterior Bilateral Throughout] Blood Pressure O2 Sat by Pulse Oximetry - General Appearance General appearance: well-developed, appears stated age, cachectic, sedated on ventilator, intubated EENT: ATNC, PERRL Neck: supple Respiratory: Present: Clear to Ascultation Cardiology: regular, S1S2, no murmurs Gastrointestinal: normoactive bowel sounds, no tenderness, no distended Integumentary: no rash, warm and dry Neurologic: obtunded Musculoskeletal: other (no edema) - Lab 02/12/19 04:19 02/12/19 04:19 Most recent lab results Calcium 9.3 mg/dL (8.4-10.2) 02/10/19 04:59 Calcium 9.5 mg/dL (8.4-10.2) 02/10/19 04:59 Phosphorus 4.00 mg/dL (2.5-4.5) 02/10/19 04:59 Magnesium 2.00 mg/dL (1.7-2.3) 02/10/19 04:59 Medications & Allergies - Medications Allergies/Adverse Reactions: Allergies No Known Allergies Allergy (Unverified 02/03/19 18:28) Home Medications: Home Medications Medication Instructions Recorded Confirmed Last Taken Type No Known Home Medications [No 02/07/19 02/07/19 Unknown History Reported Home Medications] Active Medications: Generic Name Dose Route Start Last Admin Trade Name Freq PRN Reason Stop Dose Admin Albuterol/Ipratropium 1 ampul 02/04/19 02:00 02/10/19 13:43 Duoneb *Not For Prn Use* IH 1 ampul Q6HRT JOEL Administration Lipase/Protease/Amylase 1 each 02/08/19 16:37 Pancrebrant Smith 10,500 Unit FEEDTUBE PRN PRN For Clogged Feeding Tube Arformoterol Tartrate 15 mcg 02/04/19 14:15 02/10/19 07:25 Brovana Nebu IH 15 mcg Q12HRT JOEL Administration Budesonide 0.5 mg 02/04/19 20:00 02/10/19 07:25 Pulmicort IH 0.5 mg Q12HRT JOEL Administration Fentanyl 50 mcg 02/06/19 10:50 Sublimaze IV Q10MIN PRN ANALGESIA Furosemide 40 mg 02/06/19 06:00 02/10/19 05:07 Lasix IV 40 mg 0600,1800 JOEL Administration Hydrophilic Ointment 1 applic 02/06/19 10:50 Vaseline Lip Therapy TP Q2HR PRN Dry Lips Fentanyl Citrate 2,000 mcg in 100 mls @ 2.075 mls/hr 02/06/19 11:00 02/09/19 17:15 Fentanyl Drip Premix IV 1 mcg/kg/hr TITR JOEL 2.075 mls/hr Administration Protocol 1 MCG/KG/HR Potassium Chloride/Dextrose/Sod Cl 20 meq in 1,000 mls @ 100 mls/hr 02/09/19 19:00 02/10/19 08:00 D5w/Ns W/Kcl 20meq IV 100 mls/hr DIRECT JOEL Administration Methylprednisolone Sodium Succinate 40 mg 02/04/19 15:00 02/10/19 10:30 Solu-Medrol IV 40 mg Q12HR JOEL Administration Morphine Sulfate 2 mg 02/04/19 12:51 02/09/19 19:34 Morphine IV 2 mg Q4H PRN Administration Pain, Moderate (4-6) Multi-Ingred Cream/Lotion/Oil/Oint 1 applic 02/06/19 10:50 Artificial Tears Ophth Oint OU Q4HR PRN Dry Eye(s) Ondansetron HCl 4 mg 02/03/19 20:27 02/09/19 16:37 Zofran IV 4 mg Q8H PRN Administration Nausea And Vomiting Pantoprazole Sodium 40 mg 02/09/19 19:00 02/10/19 10:29 Protonix IV 40 mg QDAY JOEL Administration Simple Syrup 15 ml 02/08/19 16:37 Simple Syrup FEEDTUBE PRN PRN Hypoglycemia Simple Syrup 30 ml 02/08/19 16:37 Simple Syrup FEEDTUBE PRN PRN Hypoglycemia Sodium Bicarbonate 325 mg 02/08/19 16:37 Sodium Bicarbonate FEEDTUBE PRN PRN For Clogged Feeding Tube Sodium Chloride 10 ml 02/03/19 22:00 02/10/19 10:30 Sodium Chloride Flush Syringe 10 Ml IV 10 ml BID JOEL Administration Sodium Chloride 10 ml 02/03/19 20:27 Sodium Chloride Flush Syringe 10 Ml IV PRN PRN LINE FLUSH
[2019-02-10] MEDS ORDERED: DULCOLAX PR ONE (17:00)
[2019-02-11] MEDS: DUONEB *Not for PRN Use IH SCH ×4 (02:37→19:30)
[2019-02-11] MEDS: fentaNYL DRIP Premix 2,000 MCG/100 ML BAG IV SCH (03:12)
--- NOTE | 2019-02-11 03:13 | XRay Report ---
PROCEDURE: XR CHEST 1V AP TECHNIQUE: Chest radiograph single view. HISTORY: Aspiration pneumonia, resp failure COMPARISONS: February 10, 2019 . FINDINGS: Heart: Normal. Mediastinum/Vessels: Normal. Lungs/Pleural space: Mild vascular congestion. No effusion or pneumothorax. Bony thorax: No acute osseous abnormality. Life support devices: The endotracheal tube ends 3 cm above the joanne. Nasogastric tube ends below t he hemidiaphragms.. IMPRESSION: Slight vascular congestion unchanged. The endotracheal tube and nasogastric tube are pro perly positioned.. This document is electronically signed by Helen Adams DO., Feb 11 2019 03:11:08 AM ET
[2019-02-11] MEDS: D5W/NS W/KCL 20MEQ 20 MEQ/1,000 ML BAG IV SCH ×2 (05:38→16:58)
--- NOTE | 2019-02-11 06:32 | Progress Note ---
Assessment and Plan Severe Sepsis with Shock Acute hypoxemic respiratory failure, on MVS Symptomatic anemia with positive stool guaiac. Acute chronic obstructive pulmonary disease exacerbation. Possible acute gastrointestinal bleed. Acute congestive heart failure exacerbation. Hypokalemia, resolved Elevated serum troponin. Adult failure to thrive Thrombocytopenia Hold fentanyl, place on SBT PS8/6 Monitor hemodynamics and respiratory status Get weaning parameters in 2 hours, if acceptable goal to liberate from mechanical ventilaotry support. [employer], PT/OT to evalaute and treat once liberated. Thrombocytopenia, with >50% drop since admission, has been on SCDs fro VTE prophylaxis Trend platelet counts Discussed with RT and RN at the bedside -Continue full MVS, -Steroid taper in view of heart failure -Adjust minute ventilation for better acid-base -Wean supplemental oxygen to keep O2 sats 88-90% -Lung protective strategies -Oxygen restrictive strategies -Daily ABGs/CXR -VAP bundle addressed -Avoid nephrotoxic agents, adjust all medications for CrCL -Strict intake and output monitoring -Daily SAT's & SBT's -Sedation target for RASS 0 to -1 -Stress ulcer prophylaxis -VTE prophylaxis -Accuchecks with glycemic control. Target glucose of 140-180 mg/dL -Bronchodilators with pulmonary hygiene per RT -Maintenance of sleep -wake cycle -Mobility as tolerated by hemodynamics -Influenza and pneumonia vaccination per protocol PROGNOSIS: GUARDED CONDITION: CRITICAL CODE STATUS: FULL CODE The high probability of a clinically significant, sudden or life-threatening deterioration of the [respiratory, cardiovascular, gastrointestinal, hematology] system(s) required my full and direct attention, intervention and personal management. The aggregate critical care time was [31] minutes without overlap. Time includes spent on; [x] Data Review and interpretation [x] Patient assessment and monitoring of vital signs [x] Documentation [x] Medication orders and management Subjective Date of service: 02/11/19 Principal diagnosis: GI bleed Interval history: Patient is seen today for: Acute hypoxemic Resp failure; Symptomatic anemia; AE- COPD; G.I. Bleed; Acute congestive heart failure exacerbation; Hypotension; SIRS Seen and examined at bedside; 24-hour events reviewed; nursing and respiratory care staff consulted; no adverse overnight events reported to me;No reported fevers, no chills, on fentanyl at 2mcg, awake , alert and obeying commands. Tolerated PSV yesterday On full mechanical ventilator support PRVC-AC 16/350/6/30% ABG 7.48/37.6/ 119/28.2 Vitals, labs, medications, chart and imaging reviewed. Objective - Exam Narrative Exam: Gen: Intubated,chronically ill looking, no patient-ventilator dyssynchrony Thin, NGT to LIS ETT at 23cm at the lip, HEENT: Normocephalic, atraumatic Neck: supple, no JVD Heart: S1 and S2 reg, no murmurs, rubs or gallop Lungs: Diminished AE bilaterally, Clear, no crackles, no wheeze Abd: soft, non tender, non distended, normal BS Ext: No edema, no clubbing, no cyanosis, Neuro: Intubated, awake, alert, obeying one step commands consistently Vital Signs - 12hr 02/10/19 02/10/19 02/10/19 19:00 20:00 20:21 Temperature 98.5 F Pulse Rate 97 H 87 88 Pulse Rate [ Anterior Bilateral Throughout] Pulse Rate [ 87 From Monitor] Respiratory 28 H 13 Rate Respiratory Rate [Anterior Bilateral Throughout] Blood Pressure 131/88 135/84 135/84 O2 Sat by Pulse 98 97 99 Oximetry 02/10/19 02/10/19 02/10/19 20:27 20:45 21:00 Temperature Pulse Rate 102 H Pulse Rate [ 90 93 H Anterior Bilateral Throughout] Pulse Rate [ From Monitor] Respiratory 18 Rate Respiratory 18 16 Rate [Anterior Bilateral Throughout] Blood Pressure 137/88 O2 Sat by Pulse 97 Oximetry 02/10/19 02/10/19 02/10/19 22:00 22:15 22:16 Temperature Pulse Rate 95 H 84 85 Pulse Rate [ Anterior Bilateral Throughout] Pulse Rate [ From Monitor] Respiratory 13 15 Rate Respiratory Rate [Anterior Bilateral Throughout] Blood Pressure 137/88 124/75 O2 Sat by Pulse 99 97 Oximetry 02/10/19 02/10/19 02/10/19 22:30 22:45 23:00 Temperature Pulse Rate 85 89 88 Pulse Rate [ Anterior Bilateral Throughout] Pulse Rate [ From Monitor] Respiratory 13 14 14 Rate Respiratory Rate [Anterior Bilateral Throughout] Blood Pressure 126/75 135/79 135/78 O2 Sat by Pulse 98 99 99 Oximetry 02/10/19 02/10/19 02/10/19 23:15 23:30 23:45 Temperature Pulse Rate 83 83 87 Pulse Rate [ Anterior Bilateral Throughout] Pulse Rate [ From Monitor] Respiratory 14 14 12 Rate Respiratory Rate [Anterior Bilateral Throughout] Blood Pressure 124/74 120/71 129/76 O2 Sat by Pulse 99 98 Oximetry 02/10/19 02/11/19 02/11/19 23:53 00:00 00:02 Temperature 98.2 F Pulse Rate 92 H 84 81 Pulse Rate [ Anterior Bilateral Throughout] Pulse Rate [ 84 From Monitor] Respiratory 15 12 14 Rate Respiratory Rate [Anterior Bilateral Throughout] Blood Pressure 129/76 124/75 124/75 O2 Sat by Pulse 98 99 99 Oximetry 02/11/19 02/11/19 02/11/19 00:15 00:30 00:45 Temperature Pulse Rate 82 86 87 Pulse Rate [ Anterior Bilateral Throughout] Pulse Rate [ From Monitor] Respiratory 15 13 13 Rate Respiratory Rate [Anterior Bilateral Throughout] Blood Pressure 124/75 122/72 125/74 O2 Sat by Pulse 98 98 98 Oximetry 02/11/19 02/11/19 02/11/19 01:00 01:15 02:00 Temperature Pulse Rate 84 95 H 110 H Pulse Rate [ Anterior Bilateral Throughout] Pulse Rate [ From Monitor] Respiratory 13 23 15 Rate Respiratory Rate [Anterior Bilateral Throughout] Blood Pressure 125/74 127/77 125/75 O2 Sat by Pulse 99 99 98 Oximetry 02/11/19 02/11/19 02/11/19 02:37 02:50 03:00 Temperature Pulse Rate 89 Pulse Rate [ 78 71 Anterior Bilateral Throughout] Pulse Rate [ From Monitor] Respiratory 16 Rate Respiratory 19 16 Rate [Anterior Bilateral Throughout] Blood Pressure 135/79 O2 Sat by Pulse 99 Oximetry 02/11/19 02/11/19 02/11/19 04:00 04:10 04:45 Temperature 97.3 F L Pulse Rate 81 90 Pulse Rate [ Anterior Bilateral Throughout] Pulse Rate [ 90 From Monitor] Respiratory 12 18 Rate Respiratory Rate [Anterior Bilateral Throughout] Blood Pressure 132/82 132/82 O2 Sat by Pulse 100 98 98 Oximetry 02/11/19 05:00 Temperature Pulse Rate 92 H Pulse Rate [ Anterior Bilateral Throughout] Pulse Rate [ From Monitor] Respiratory 18 Rate Respiratory Rate [Anterior Bilateral Throughout] Blood Pressure 131/79 O2 Sat by Pulse 98 Oximetry CBC and BMP: 02/10/19 04:59 02/10/19 04:59 ABG, PT/INR, D-dimer: ABG POC ABG pH 7.482 (7.35-7.45) H 02/11/19 00:06 POC ABG pCO2 37.6 (35-45) 02/11/19 00:06 POC ABG pO2 119 (80-105) H 02/11/19 00:06 POC ABG HCO3 28.2 (22-26 mml/L) 02/11/19 00:06 POC ABG Total CO2 29 (23-27mmol/L) 02/11/19 00:06 POC ABG O2 Sat 99 02/11/19 00:06 PT/INR, D-dimer PT 19.3 Sec. (12.2-14.9) H 02/03/19 19:24 INR 1.52 (0.87-1.13) H 02/03/19 19:24 Abnormal lab findings: Abnormal Labs 02/03/19 02/03/19 02/03/19 02:57 18:06 18:06 WBC RBC 0.88 L Hgb 1.9 L* Hct 7.1 L* MCH 22 L MCHC 27 L RDW 23.3 H Plt Count 489 H [place] % (Auto) 10.1 H Lymph # 1.1 L Seg Neutrophils % 71.2 H Seg Neuts % (Manual) Lymphocytes % (Manual) Seg Neutrophils # Man Lymphocytes # (Manual) PT INR POC ABG pH POC ABG pCO2 POC ABG pO2 Sodium Potassium Chloride Carbon Dioxide BUN Creatinine Glucose POC Glucose Lactic Acid Calcium Phosphorus Troponin T C-Reactive Protein NT-Pro-B Natriuret Pep 9160 H Total Protein Albumin Triglycerides HDL Cholesterol Urine WBC (Auto) 7.0 H Crossmatch 02/03/19 02/03/19 02/03/19 18:06 18:08 18:08 WBC RBC Hgb Hct MCH MCHC RDW Plt Count [place] % (Auto) Lymph # Seg Neutrophils % Seg Neuts % (Manual) Lymphocytes % (Manual) Seg Neutrophils # Man Lymphocytes # (Manual) PT INR POC ABG pH POC ABG pCO2 POC ABG pO2 Sodium Potassium 3.3 L Chloride Carbon Dioxide 17 L BUN Creatinine Glucose POC Glucose Lactic Acid 9.90 H* Calcium 7.9 L Phosphorus Troponin T 0.134 H* C-Reactive Protein NT-Pro-B Natriuret Pep Total Protein 5.1 L Albumin 2.8 L Triglycerides 164 H HDL Cholesterol 31 L Urine WBC (Auto) Crossmatch See Detail 02/03/19 02/03/19 02/03/19 19:24 19:24 19:24 WBC RBC Hgb Hct MCH MCHC RDW Plt Count [place] % (Auto) Lymph # Seg Neutrophils % Seg Neuts % (Manual) Lymphocytes % (Manual) Seg Neutrophils # Man Lymphocytes # (Manual) PT 19.3 H INR 1.52 H POC ABG pH POC ABG pCO2 POC ABG pO2 Sodium Potassium Chloride Carbon Dioxide BUN Creatinine Glucose POC Glucose Lactic Acid 6.30 H* Calcium Phosphorus Troponin T 0.139 H* C-Reactive Protein NT-Pro-B Natriuret Pep Total Protein Albumin Triglycerides HDL Cholesterol Urine WBC (Auto) Crossmatch 02/03/19 02/03/19 02/04/19 20:30 23:36 01:18 WBC RBC Hgb Hct MCH MCHC RDW Plt Count [place] % (Auto) Lymph # Seg Neutrophils % Seg Neuts % (Manual) Lymphocytes % (Manual) Seg Neutrophils # Man Lymphocytes # (Manual) PT INR POC ABG pH 7.515 H POC ABG pCO2 POC ABG pO2 121 H Sodium Potassium Chloride Carbon Dioxide BUN Creatinine Glucose POC Glucose Lactic Acid 6.50 H* 5.70 H* Calcium Phosphorus Troponin T C-Reactive Protein NT-Pro-B Natriuret Pep Total Protein Albumin Triglycerides HDL Cholesterol Urine WBC (Auto) Crossmatch 02/04/19 02/04/19 02/04/19 04:35 04:35 04:35 WBC 17.5 H RBC Hgb Hct MCH 27 L MCHC RDW 15.9 H Plt Count [place] % (Auto) Lymph # Seg Neutrophils % Seg Neuts % (Manual) 96.0 H Lymphocytes % (Manual) 1.0 L Seg Neutrophils # Man 16.8 H Lymphocytes # (Manual) 0.2 L PT INR POC ABG pH POC ABG pCO2 POC ABG pO2 Sodium 147 H Potassium 3.2 L Chloride Carbon Dioxide 21 L BUN Creatinine Glucose 170 H POC Glucose Lactic Acid 3.60 H* Calcium 7.9 L Phosphorus Troponin T C-Reactive Protein NT-Pro-B Natriuret Pep Total Protein Albumin Triglycerides HDL Cholesterol Urine WBC (Auto) Crossmatch 02/04/19 02/04/19 02/04/19 10:59 17:07 17:07 WBC RBC Hgb Hct MCH MCHC RDW Plt Count [place] % (Auto) Lymph # Seg Neutrophils % Seg Neuts % (Manual) Lymphocytes % (Manual) Seg Neutrophils # Man Lymphocytes # (Manual) PT INR POC ABG pH POC ABG pCO2 POC ABG pO2 Sodium Potassium 3.1 L Chloride Carbon Dioxide BUN Creatinine Glucose POC Glucose Lactic Acid 2.30 H* Calcium Phosphorus Troponin T C-Reactive Protein 9.30 H NT-Pro-B Natriuret Pep Total Protein Albumin Triglycerides HDL Cholesterol Urine WBC (Auto) Crossmatch 02/04/19 02/04/19 02/05/19 17:15 21:04 00:05 WBC RBC Hgb Hct MCH MCHC RDW Plt Count [place] % (Auto) Lymph # Seg Neutrophils % Seg Neuts % (Manual) Lymphocytes % (Manual) Seg Neutrophils # Man Lymphocytes # (Manual) PT INR POC ABG pH 7.310 L POC ABG pCO2 POC ABG pO2 68 L Sodium Potassium Chloride Carbon Dioxide BUN Creatinine Glucose POC Glucose Lactic Acid 2.40 H* 2.70 H* Calcium Phosphorus Troponin T C-Reactive Protein NT-Pro-B Natriuret Pep Total Protein Albumin Triglycerides HDL Cholesterol Urine WBC (Auto) Crossmatch 02/05/19 02/05/19 02/05/19 04:41 04:41 12:54 WBC 15.1 H RBC Hgb Hct MCH MCHC RDW 16.6 H Plt Count [place] % (Auto) Lymph # Seg Neutrophils % Seg Neuts % (Manual) 90.0 H Lymphocytes % (Manual) 2.0 L Seg Neutrophils # Man 13.6 H Lymphocytes # (Manual) 0.3 L PT INR POC ABG pH POC ABG pCO2 POC ABG pO2 74 L Sodium 147 H Potassium Chloride 114.1 H Carbon Dioxide 20 L BUN 19 H Creatinine Glucose 192 H POC Glucose Lactic Acid Calcium 7.4 L Phosphorus Troponin T C-Reactive Protein NT-Pro-B Natriuret Pep Total Protein Albumin Triglycerides HDL Cholesterol Urine WBC (Auto) Crossmatch 02/06/19 02/06/19 02/06/19 01:46 11:42 11:42 WBC 21.1 H RBC Hgb Hct MCH MCHC RDW 17.0 H Plt Count [place] % (Auto) Lymph # Seg Neutrophils % Seg Neuts % (Manual) Lymphocytes % (Manual) Seg Neutrophils # Man Lymphocytes # (Manual) PT INR POC ABG pH POC ABG pCO2 34.4 L POC ABG pO2 56 L Sodium 151 H Potassium Chloride 112.1 H Carbon Dioxide BUN Creatinine Glucose 187 H POC Glucose Lactic Acid Calcium 8.1 L Phosphorus Troponin T C-Reactive Protein NT-Pro-B Natriuret Pep Total Protein Albumin Triglycerides HDL Cholesterol Urine WBC (Auto) Crossmatch 02/06/19 02/07/19 02/07/19 12:04 04:26 05:27 WBC 21.7 H RBC Hgb Hct MCH MCHC RDW 17.6 H Plt Count [place] % (Auto) Lymph # Seg Neutrophils % Seg Neuts % (Manual) 98.0 H Lymphocytes % (Manual) 1.0 L Seg Neutrophils # Man 21.3 H Lymphocytes # (Manual) 0.2 L PT INR POC ABG pH 7.481 H POC ABG pCO2 31.3 L POC ABG pO2 63 L 50 L Sodium Potassium Chloride Carbon Dioxide BUN Creatinine Glucose POC Glucose Lactic Acid Calcium Phosphorus Troponin T C-Reactive Protein NT-Pro-B Natriuret Pep Total Protein Albumin Triglycerides HDL Cholesterol Urine WBC (Auto) Crossmatch 02/07/19 02/07/19 02/07/19 05:27 05:29 23:07 WBC RBC Hgb Hct MCH MCHC RDW Plt Count [place] % (Auto) Lymph # Seg Neutrophils % Seg Neuts % (Manual) Lymphocytes % (Manual) Seg Neutrophils # Man Lymphocytes # (Manual) PT INR POC ABG pH POC ABG pCO2 POC ABG pO2 Sodium 147 H Potassium Chloride 108.4 H Carbon Dioxide BUN Creatinine 0.6 L Glucose 184 H POC Glucose 188 H 172 H Lactic Acid Calcium 8.3 L Phosphorus 1.50 L Troponin T C-Reactive Protein NT-Pro-B Natriuret Pep Total Protein Albumin Triglycerides HDL Cholesterol Urine WBC (Auto) Crossmatch 02/08/19 02/08/19 02/08/19 04:26 04:26 11:50 WBC 18.8 H RBC Hgb Hct MCH MCHC RDW 17.7 H Plt Count [place] % (Auto) Lymph # Seg Neutrophils % Seg Neuts % (Manual) Lymphocytes % (Manual) Seg Neutrophils # Man Lymphocytes # (Manual) PT INR POC ABG pH POC ABG pCO2 POC ABG pO2 Sodium Potassium Chloride Carbon Dioxide BUN 19 H Creatinine 0.6 L Glucose 190 H POC Glucose 185 H Lactic Acid Calcium 8.2 L Phosphorus Troponin T C-Reactive Protein NT-Pro-B Natriuret Pep Total Protein Albumin Triglycerides HDL Cholesterol Urine WBC (Auto) Crossmatch 02/08/19 02/08/19 02/08/19 12:01 17:44 18:52 WBC RBC Hgb Hct MCH MCHC RDW Plt Count [place] % (Auto) Lymph # Seg Neutrophils % Seg Neuts % (Manual) Lymphocytes % (Manual) Seg Neutrophils # Man Lymphocytes # (Manual) PT INR POC ABG pH POC ABG pCO2 POC ABG pO2 Sodium Potassium Chloride Carbon Dioxide BUN Creatinine Glucose POC Glucose 186 H 143 H Lactic Acid Calcium Phosphorus Troponin T 0.058 H D C-Reactive Protein NT-Pro-B Natriuret Pep Total Protein Albumin Triglycerides HDL Cholesterol Urine WBC (Auto) Crossmatch 02/08/19 02/09/19 02/09/19 23:24 03:57 03:57 WBC 20.3 H RBC Hgb Hct MCH MCHC RDW 18.0 H Plt Count 92 L [place] % (Auto) Lymph # Seg Neutrophils % Seg Neuts % (Manual) Lymphocytes % (Manual) Seg Neutrophils # Man Lymphocytes # (Manual) PT INR POC ABG pH POC ABG pCO2 POC ABG pO2 Sodium Potassium Chloride Carbon Dioxide BUN 29 H Creatinine 0.5 L Glucose 172 H POC Glucose 205 H Lactic Acid Calcium Phosphorus Troponin T C-Reactive Protein NT-Pro-B Natriuret Pep Total Protein Albumin Triglycerides HDL Cholesterol Urine WBC (Auto) Crossmatch 02/09/19 02/09/19 02/09/19 04:49 12:11 17:27 WBC RBC Hgb Hct MCH MCHC RDW Plt Count [place] % (Auto) Lymph # Seg Neutrophils % Seg Neuts % (Manual) Lymphocytes % (Manual) Seg Neutrophils # Man Lymphocytes # (Manual) PT INR POC ABG pH 7.473 H POC ABG pCO2 POC ABG pO2 Sodium Potassium Chloride Carbon Dioxide BUN Creatinine Glucose POC Glucose 136 H 149 H Lactic Acid Calcium Phosphorus Troponin T C-Reactive Protein NT-Pro-B Natriuret Pep Total Protein Albumin Triglycerides HDL Cholesterol Urine WBC (Auto) Crossmatch 02/10/19 02/10/19 02/10/19 04:59 04:59 04:59 WBC 16.5 H RBC Hgb Hct MCH MCHC RDW 17.7 H Plt Count 94 L [place] % (Auto) Lymph # Seg Neutrophils % Seg Neuts % (Manual) Lymphocytes % (Manual) Seg Neutrophils # Man Lymphocytes # (Manual) PT INR POC ABG pH POC ABG pCO2 POC ABG pO2 Sodium Potassium Chloride Carbon Dioxide BUN 31 H 31 H Creatinine 0.6 L 0.6 L Glucose 149 H 152 H POC Glucose Lactic Acid Calcium Phosphorus Troponin T C-Reactive Protein NT-Pro-B Natriuret Pep Total Protein Albumin Triglycerides HDL Cholesterol Urine WBC (Auto) Crossmatch 02/10/19 02/11/19 05:10 00:06 WBC RBC Hgb Hct MCH MCHC RDW Plt Count [place] % (Auto) Lymph # Seg Neutrophils % Seg Neuts % (Manual) Lymphocytes % (Manual) Seg Neutrophils # Man Lymphocytes # (Manual) PT INR POC ABG pH 7.518 H 7.482 H POC ABG pCO2 POC ABG pO2 173 H 119 H Sodium Potassium Chloride Carbon Dioxide BUN Creatinine Glucose POC Glucose Lactic Acid Calcium Phosphorus Troponin T C-Reactive Protein NT-Pro-B Natriuret Pep Total Protein Albumin Triglycerides HDL Cholesterol Urine WBC (Auto) Crossmatch Chest x-ray: image reviewed (Improving airspace disease, chronic interstial markings, ETT and NGT in good position) Allied health notes reviewed: RT
[2019-02-11] MEDS: BROVANA NEBU IH SCH ×2 (07:35→19:30)
[2019-02-11] MEDS: PULMICORT IH SCH ×2 (07:35→19:30)
--- NOTE | 2019-02-11 09:10 | XRay Report ---
ABDOMINAL SERIES: History: Small bowel obstruction. Compared to 02/10/19. The nasogastric tube remains in adequate position. Dilated small bowel loops have decreased in caliber and number by approximately 25% since yesterday's exam. Partial obstruction pattern persists. No free air is identified. AP view of the chest demonstrates mild pulmonary congestion. Endotracheal tube is in adequate position. IMPRESSION: Mild improvement in dilated small bowel loop since yesterday's exam.
--- NOTE | 2019-02-11 09:11 | Progress Note ---
Assessment and Plan Assessment and plan: Patient is about 71-year-old female with PMHx of CHF, COPD, who was brought to the ER by EMS after a fall at home, altered mental status, respiratory distress. Per EMS patient was found in severe respiratory distress, laying on the floor and covered in her feces. According to EMS the had asked a neighbor to call EMS because the patient fell on the floor and he was unable to pick her up. He states that she had been sick for a few days, she had trouble breathing, and he had been taking a lot of "goody powder" for pain. On arrival to the ER patient was lethargic, responded to name, her blood pressure was 80/54, the temperature was 97.1, respiration was 40 BPM, she had h&h of 1.9/7.1, GI was consulted and she was admitted for acute GI bleed, acute blood loss anemia, CHF (BNP was 9100) and COPD exacerbation. respiratory failure worsened, so was intubated. She was seen by GI Physician, put on Protonix iv, but EGD not done because unstable. Patient remained intubated. she started vomiting and CT revealed poss bowel obstruction, surg consulted and evaluated her. 1. Acute encephalopathy, 2. Acute hypoxic respiratory failure with Severe respiratory alkalosis - s/p intubation 02/06 3. Acute GI bleed, possible PUD 4. Acute blood loss anemia (due to #2) 5. Hypokalemia, cont replete 6. CHF with acute exacerbation ( EF 20-25%) 7. SIRS, source of infection unclear 8. Severe protein calorie malnutrition 9. Hypernatremia, now resolved Vomiting Possible small bowel obstruction on CT - Surg consulted, evaluated patient Fever Plan: Monitor at ICU Surg consulted. I discussed with Dr. Lew Now intubated, was on BIPAP GI following for acute GI bleed, s/p 5 units of packed RBCs monitor h/h, place on iv lasix Avoid NSAIDs, follow Cx, iv abx, BMP in the a.m. replete electrolytes, No chemical DVT prophylaxis (GI bleed) The high probability of a clinically significant, sudden or life threatening deterioration of the [multiple] system(s) required my full and direct attention, intervention and personal management. The aggregate critical care time was [33] minutes. This time is in addition to time spent performing reported procedures but includes the following: [x] Data Review and interpretation [x] Patient assessment and monitoring of vital signs [x] Documentation [x] Medication orders and management History Interval history: Intubated for worsening shortness of breath Fever Repeated vomiting CT Abd 02/09 with possible SBO Hospitalist Physical - Physical exam Narrative exam: Gen: Intubated, malnourished HEENT: Normocephalic, atraumatic Neck: supple, no JVD Heart: S1 and S2 reg, no murmurs, rubs or gallop Lungs: Clear, no crackles, no wheeze Abd: soft, non tender, mild distended, hypoactive BS Ext: No edema, no clubbing, no cyanosis, Neuro: Intubated, sedated - Constitutional Vitals: Temp Pulse Resp BP Pulse Ox 98.2 F 80 13 143/81 99 02/11/19 08:00 02/11/19 08:00 02/11/19 08:00 02/11/19 08:00 02/11/19 08:00 General appearance: Present: cachectic Results - Labs CBC & Chem 7: 02/11/19 10:26 02/11/19 10:26 Labs: Laboratory Last Values WBC 16.5 K/mm3 (4.5-11.0) H 02/10/19 04:59 RBC 4.59 M/mm3 (3.65-5.03) 02/10/19 04:59 Hgb 12.7 gm/dl (10.1-14.3) 02/10/19 04:59 Hct 38.5 % (30.3-42.9) 02/10/19 04:59 MCV 84 fl (79-97) 02/10/19 04:59 MCH 28 pg (28-32) 02/10/19 04:59 MCHC 33 % (30-34) 02/10/19 04:59 RDW 17.7 % (13.2-15.2) H 02/10/19 04:59 Plt Count 94 K/mm3 (140-440) L 02/10/19 04:59 Lymph % (Auto) 17.6 % (13.4-35.0) 02/03/19 18:06 Cooper % (Auto) 10.1 % (0.0-7.3) H 02/03/19 18:06 Eos % (Auto) 0.1 % (0.0-4.3) 02/03/19 18:06 Baso % (Auto) 1.0 % (0.0-1.8) 02/03/19 18:06 Lymph # 1.1 K/mm3 (1.2-5.4) L 02/03/19 18:06 Cooper # 0.6 K/mm3 (0.0-0.8) 02/03/19 18:06 Eos # 0.0 K/mm3 (0.0-0.4) 02/03/19 18:06 Baso # 0.1 K/mm3 (0.0-0.1) 02/03/19 18:06 Add Manual Diff Complete 02/07/19 05:27 Total Counted 100 02/07/19 05:27 Seg Neutrophils % Auditor In Charge 02/07/19 05:27 Seg Neuts % (Manual) 98.0 % (40.0-70.0) H 02/07/19 05:27 0 % 02/07/19 05:27 1.0 % (13.4-35.0) L 02/07/19 05:27 Reactive Lymphs % (Man) 0 % 02/07/19 05:27 1.0 % (0.0-7.3) 02/07/19 05:27 0 % (0.0-4.3) 02/07/19 05:27 0 % (0.0-1.8) 02/07/19 05:27 0 % 02/07/19 05:27 0 % 02/07/19 05:27 0 % 02/07/19 05:27 0 % 02/07/19 05:27 Nucleated RBC % Not Reportable 02/07/19 05:27 Seg Neutrophils # 4.5 K/mm3 (1.8-7.7) 02/03/19 18:06 Seg Neutrophils # Man 21.3 K/mm3 (1.8-7.7) H 02/07/19 05:27 Band Neutrophils # 0.0 K/mm3 02/07/19 05:27 0.2 K/mm3 (1.2-5.4) L 02/07/19 05:27 Abs React Lymphs (Man) 0.0 K/mm3 02/07/19 05:27 0.2 K/mm3 (0.0-0.8) 02/07/19 05:27 0.0 K/mm3 (0.0-0.4) 02/07/19 05:27 0.0 K/mm3 (0.0-0.1) 02/07/19 05:27 0.0 K/mm3 02/07/19 05:27 0.0 K/mm3 02/07/19 05:27 0.0 K/mm3 02/07/19 05:27 Blast Cells # 0.0 K/mm3 02/07/19 05:27 WBC Morphology Not Reportable 02/07/19 05:27 Hypersegmented Neuts Not Reportable 02/07/19 05:27 Hyposegmented Neuts Not Reportable 02/07/19 05:27 Hypogranular Neuts Not Reportable 02/07/19 05:27 Not Reportable 02/07/19 05:27 Not Reportable 02/07/19 05:27 Not Reportable 02/07/19 05:27 Not Reportable 02/07/19 05:27 Not Reportable 02/07/19 05:27 Not Reportable 02/07/19 05:27 Consistent w auto 02/07/19 05:27 Not Reportable 02/07/19 05:27 Plt Clumps, EDTA Not Reportable 02/07/19 05:27 Not Reportable 02/07/19 05:27 Not Reportable 02/07/19 05:27 Not Reportable 02/07/19 05:27 Plt Morphology Comment Not Reportable 02/07/19 05:27 RBC Morphology Not Reportable 02/07/19 05:27 Dimorphic RBCs Not Reportable 02/07/19 05:27 Not Reportable 02/07/19 05:27 Not Reportable 02/07/19 05:27 Few 02/07/19 05:27 Few 02/07/19 05:27 Not Reportable 02/07/19 05:27 Not Reportable 02/07/19 05:27 Not Reportable 02/07/19 05:27 Not Reportable 02/07/19 05:27 Not Reportable 02/07/19 05:27 Not Reportable 02/07/19 05:27 Not Reportable 02/07/19 05:27 Not Reportable 02/07/19 05:27 Not Reportable 02/07/19 05:27 Not Reportable 02/07/19 05:27 Not Reportable 02/07/19 05:27 Not Reportable 02/07/19 05:27 Not Reportable 02/07/19 05:27 Not Reportable 02/07/19 05:27 Not Reportable 02/07/19 05:27 Acanthocytes (Spur) Not Reportable 02/07/19 05:27 Rouleaux Not Reportable 02/07/19 05:27 Not Reportable 02/07/19 05:27 Not Reportable 02/07/19 05:27 Not Reportable 02/07/19 05:27 Not Reportable 02/07/19 05:27 Hem Pathologist Commnt No 02/07/19 05:27 PT 19.3 Sec. (12.2-14.9) H 02/03/19 19:24 INR 1.52 (0.87-1.13) H 02/03/19 19:24 APTT 30.3 Sec. (24.2-36.6) 02/03/19 19:24 POC ABG pH 7.482 (7.35-7.45) H 02/11/19 00:06 POC ABG pCO2 37.6 (35-45) 02/11/19 00:06 POC ABG pO2 119 (80-105) H 02/11/19 00:06 POC ABG HCO3 28.2 (22-26 mml/L) 02/11/19 00:06 POC ABG Total CO2 29 (23-27mmol/L) 02/11/19 00:06 POC ABG O2 Sat 99 02/11/19 00:06 POC ABG Base Excess 5 ((-2) - (+3)mmol/L) 02/11/19 00:06 30 % 02/11/19 00:06 Sodium 142 mmol/L (137-145) 02/10/19 04:59 Sodium 144 mmol/L (137-145) 02/10/19 04:59 Potassium 4.0 mmol/L (3.6-5.0) 02/10/19 04:59 Potassium 4.0 mmol/L (3.6-5.0) 02/10/19 04:59 Chloride 101.4 mmol/L (98-107) 02/10/19 04:59 Chloride 102.7 mmol/L (98-107) 02/10/19 04:59 Carbon Dioxide 28 mmol/L (22-30) 02/10/19 04:59 Carbon Dioxide 30 mmol/L (22-30) 02/10/19 04:59 15 mmol/L 02/10/19 04:59 17 mmol/L 02/10/19 04:59 BUN 31 mg/dL (7-17) H 02/10/19 04:59 BUN 31 mg/dL (7-17) H 02/10/19 04:59 0.6 mg/dL (0.7-1.2) L 02/10/19 04:59 0.6 mg/dL (0.7-1.2) L 02/10/19 04:59 Estimated GFR > 60 ml/min 02/10/19 04:59 Estimated GFR > 60 ml/min 02/10/19 04:59 52 % 02/10/19 04:59 52 % 02/10/19 04:59 Glucose 149 mg/dL (65-100) H 02/10/19 04:59 Glucose 152 mg/dL (65-100) H 02/10/19 04:59 POC Glucose 149 (70-105) H 02/09/19 17:27 Lactic Acid 1.70 mmol/L (0.7-2.0) 02/05/19 04:41 Calcium 9.3 mg/dL (8.4-10.2) 02/10/19 04:59 Calcium 9.5 mg/dL (8.4-10.2) 02/10/19 04:59 Phosphorus 4.00 mg/dL (2.5-4.5) 02/10/19 04:59 Magnesium 2.00 mg/dL (1.7-2.3) 02/10/19 04:59 0.30 mg/dL (0.1-1.2) 02/03/19 18:08 AST 35 units/L (5-40) 02/03/19 18:08 ALT 27 units/L (7-56) 02/03/19 18:08 117 units/L (35-129) 02/03/19 18:08 0.058 ng/mL (0.00-0.029) H D 02/08/19 18:52 9.30 mg/dL (0.00-1.30) H 02/04/19 17:07 NT-Pro-B Natriuret Pep 9160 pg/mL (0-900) H 02/03/19 18:06 5.1 g/dL (6.3-8.2) L 02/03/19 18:08 2.8 g/dL (3.9-5) L 02/03/19 18:08 1.2 % 02/03/19 18:08 Triglycerides 164 mg/dL (2-149) H 02/03/19 18:08 Cholesterol 125 mg/dL (50-199) 02/03/19 18:08 75 mg/dL (50-130) 02/03/19 18:08 31 mg/dL (40-59) L 02/03/19 18:08 4.03 % 02/03/19 18:08 Yellow (Yellow) 02/03/19 02:57 Clear (Clear) 02/03/19 02:57 6.0 (5.0-7.0) 02/03/19 02:57 Ur Specific [place] 1.011 (1.003-1.030) 02/03/19 02:57 <15 mg/dl mg/dL (Negative) 02/03/19 02:57 Neg mg/dL (Negative) 02/03/19 02:57 Neg mg/dL (Negative) 02/03/19 02:57 Neg (Negative) 02/03/19 02:57 Neg (Negative) 02/03/19 02:57 Neg (Negative) 02/03/19 02:57 < 2.0 mg/dL (<2.0) 02/03/19 02:57 Ur Leukocyte Esterase Neg (Negative) 02/03/19 02:57 7.0 /HPF (0.0-6.0) H 02/03/19 02:57 8.0 /HPF (0.0-6.0) 02/03/19 02:57 U Epithel Cells (Auto) 1.0 /HPF (0-13.0) 02/03/19 02:57 2+ /HPF (Negative) 02/03/19 02:57 Hyaline Casts 22 /LPF 02/03/19 02:57 3+ /HPF 02/03/19 02:57 Blood Type A POSITIVE 02/03/19 18:06 Antibody Screen Negative 02/03/19 18:06 Crossmatch See Detail 02/03/19 18:06 Active Medications - Current Medications Current Medications: Generic Name Dose Route Start Last Admin Trade Name Freq PRN Reason Stop Dose Admin Albuterol/Ipratropium 1 ampul 02/04/19 02:00 02/11/19 07:24 Duoneb *Not For Prn Use* IH Not Given Q6HRT JOLE Lipase/Protease/Amylase 1 each 02/08/19 16:37 Pancreazallan Smith 10,500 Unit FEEDTUBE PRN PRN For Clogged Feeding Tube Arformoterol Tartrate 15 mcg 02/04/19 14:15 02/11/19 07:35 Brovana Nebu IH 15 mcg Q12HRT JOEL Administration Budesonide 0.5 mg 02/04/19 20:00 02/11/19 07:35 Pulmicort IH 0.5 mg Q12HRT JOEL Administration Fentanyl 50 mcg 02/06/19 10:50 Sublimaze IV Q10MIN PRN ANALGESIA Hydrophilic Ointment 1 applic 02/06/19 10:50 Vaseline Lip Therapy TP Q2HR PRN Dry Lips Fentanyl Citrate 2,000 mcg in 100 mls @ 2.075 mls/hr 02/06/19 11:00 02/11/19 06:26 Fentanyl Drip Premix IV 0 mcg/kg/hr TITR JOEL 0 mls/hr Titration Protocol 1 MCG/KG/HR Potassium Chloride/Dextrose/Sod Cl 20 meq in 1,000 mls @ 100 mls/hr 02/09/19 19:00 02/11/19 05:38 D5w/Ns W/Kcl 20meq IV 100 mls/hr DIRECT JOEL Administration Methylprednisolone Sodium Succinate 40 mg 02/04/19 15:00 02/10/19 21:40 Solu-Medrol IV 40 mg Q12HR JOEL Administration Morphine Sulfate 2 mg 02/04/19 12:51 02/09/19 19:34 Morphine IV 2 mg Q4H PRN Administration Pain, Moderate (4-6) Multi-Ingred Cream/Lotion/Oil/Oint 1 applic 02/06/19 10:50 Artificial Tears Ophth Oint OU Q4HR PRN Dry Eye(s) Ondansetron HCl 4 mg 02/03/19 20:27 02/09/19 16:37 Zofran IV 4 mg Q8H PRN Administration Nausea And Vomiting Pantoprazole Sodium 40 mg 02/09/19 19:00 02/10/19 10:29 Protonix IV 40 mg QDAY JOEL Administration Simple Syrup 15 ml 02/08/19 16:37 Simple Syrup FEEDTUBE PRN PRN Hypoglycemia Simple Syrup 30 ml 02/08/19 16:37 Simple Syrup FEEDTUBE PRN PRN Hypoglycemia Sodium Bicarbonate 325 mg 02/08/19 16:37 Sodium Bicarbonate FEEDTUBE PRN PRN For Clogged Feeding Tube Sodium Chloride 10 ml 02/03/19 22:00 02/10/19 21:40 Sodium Chloride Flush Syringe 10 Ml IV 10 ml BID JOEL Administration Sodium Chloride 10 ml 02/03/19 20:27 Sodium Chloride Flush Syringe 10 Ml IV PRN PRN LINE FLUSH Nutrition/Malnutrition Assess - Dietary Evaluation Nutrition/Malnutrition Findings: Nutrition Notes Start: 02/04/19 14:37 Freq: Status: Active Protocol: Document 02/08/19 16:39 LARS (Rec: 02/08/19 16:44 LARS [email or web address]) Nutrition Notes Initial or Follow up Brief Note Current Diagnosis Heart Failure,Respiratory Failure Other Pertinent Diagnosis AMS Current Diet TF - Vital AF 1.2 at 50ml/hr Labs/Tests BUN 19 BG 190 Pertinent Medications Reviewed Height 5 ft 3 in Weight 39.8 kg [place] Body Weight (kg) 52.27 BMI 15.5 Subjective/Other Information Pt tolerating TF at goal rate; remains on vent support. Burn Absent Trauma Absent #1 Nutrition Diagnosis Inadequate oral intake Diagnosis Progress(for reassessment Continues documentation) Is patient on ventilator? Yes Is Patient Ambulatory and/or Out of Bed No REE-([facility]-confined to bed) 1070.796 Kcal/Kg value to use for calculation 35 Approximate Energy Requirements Using 1393 kcal/Kg Calculation Used for Recommendations Kcal/kg Additional Notes Pro needs 1.2-2g/k-80g/ day Fluid needs 1ml/kcal Nutrition Intervention Nutrition Support: Change TF formula to Glucerna 1.2 at 45ml/hr with 75ml water flush q4h. Kcal 1,296 Protein (gm) 65 Carbohydrates (gm) 124 Fluid (mL) 869 Fiber (gm) 17 Goal #1 TF tolerance Goal #2 TF to meet 90-100% energy and pro needs Follow-Up By: 02/11/19 Additional Comments F/U: TF formula change/ tolerance, vent status
--- NOTE | 2019-02-11 10:35 | Progress Note ---
Assessment and Plan 68 yo F with 1. ARF on vent 2. anemia 3. GIB 4. n/v, SBO 5. hx CHF, EF 20-25% Plan: 1. NPO 2. NGT to LIWS 3. IVF 4. protonix IV 5. OR today for exlap - consent obtained. Obstruction series, CT scan A/P reviewed with Dr. Marc. Worrisome for complete bowel obstruction in right abdomen. Possible volvulus. Discussed surgery with patient and her at the bedside again. I feel that her abdomen needs to be explored considering the xray findings and no history of abdominal surgery in the past. R abdomen is becoming more distended and NGT output remains bilious. After a 45 minute discussion involving myself, the patient, her at bedside and granddaughter Grace on the phone, the patient agreed to proceeding with surgery. Consent signed by her . I made them aware that her heart is weak and anesthesia can affect the heart. She is a high risk candidate. Could not get in touch with daughter Sherie and her VM box was full. Discussed with Dr. Plummer. Plan was to extubate patient today but this is now cancelled due to emergent surgery. D/w Dr. Garcia Thank you, please call with questions. Subjective Date of service: 02/11/19 Narrative: Pt seen and examined. Awake on vent. Denies pain. No f/c Objective Vital Signs - 12hr 02/10/19 02/10/19 02/10/19 22:45 23:00 23:15 Temperature Pulse Rate 89 88 83 Pulse Rate [ Anterior Bilateral Throughout] Pulse Rate [ From Monitor] Respiratory 14 14 14 Rate Respiratory Rate [Anterior Bilateral Throughout] Blood Pressure 135/79 135/78 124/74 O2 Sat by Pulse 99 99 99 Oximetry 02/10/19 02/10/19 02/10/19 23:30 23:45 23:53 Temperature Pulse Rate 83 87 92 H Pulse Rate [ Anterior Bilateral Throughout] Pulse Rate [ From Monitor] Respiratory 14 12 15 Rate Respiratory Rate [Anterior Bilateral Throughout] Blood Pressure 120/71 129/76 129/76 O2 Sat by Pulse 98 98 Oximetry 02/11/19 02/11/19 02/11/19 00:00 00:02 00:15 Temperature 98.2 F Pulse Rate 84 81 82 Pulse Rate [ Anterior Bilateral Throughout] Pulse Rate [ 84 From Monitor] Respiratory 12 14 15 Rate Respiratory Rate [Anterior Bilateral Throughout] Blood Pressure 124/75 124/75 124/75 O2 Sat by Pulse 99 99 98 Oximetry 02/11/19 02/11/19 02/11/19 00:30 00:45 01:00 Temperature Pulse Rate 86 87 84 Pulse Rate [ Anterior Bilateral Throughout] Pulse Rate [ From Monitor] Respiratory 13 13 13 Rate Respiratory Rate [Anterior Bilateral Throughout] Blood Pressure 122/72 125/74 125/74 O2 Sat by Pulse 98 98 99 Oximetry 02/11/19 02/11/19 02/11/19 01:15 02:00 02:37 Temperature Pulse Rate 95 H 110 H Pulse Rate [ 78 Anterior Bilateral Throughout] Pulse Rate [ From Monitor] Respiratory 23 15 Rate Respiratory 19 Rate [Anterior Bilateral Throughout] Blood Pressure 127/77 125/75 O2 Sat by Pulse 99 98 Oximetry 02/11/19 02/11/19 02/11/19 02:50 03:00 04:00 Temperature 97.3 F L Pulse Rate 89 81 Pulse Rate [ 71 Anterior Bilateral Throughout] Pulse Rate [ From Monitor] Respiratory 16 12 Rate Respiratory 16 Rate [Anterior Bilateral Throughout] Blood Pressure 135/79 132/82 O2 Sat by Pulse 99 100 Oximetry 02/11/19 02/11/19 02/11/19 04:10 04:45 05:00 Temperature Pulse Rate 90 92 H Pulse Rate [ Anterior Bilateral Throughout] Pulse Rate [ 90 From Monitor] Respiratory 18 18 Rate Respiratory Rate [Anterior Bilateral Throughout] Blood Pressure 132/82 131/79 O2 Sat by Pulse 98 98 98 Oximetry 02/11/19 02/11/19 02/11/19 06:00 07:00 07:35 Temperature Pulse Rate 68 81 Pulse Rate [ 86 Anterior Bilateral Throughout] Pulse Rate [ From Monitor] Respiratory 16 10 L Rate Respiratory 12 Rate [Anterior Bilateral Throughout] Blood Pressure 124/68 144/87 O2 Sat by Pulse 100 100 Oximetry 02/11/19 02/11/19 07:45 08:00 Temperature 98.2 F Pulse Rate 80 Pulse Rate [ 94 H Anterior Bilateral Throughout] Pulse Rate [ 88 From Monitor] Respiratory 18 Rate Respiratory 12 Rate [Anterior Bilateral Throughout] Blood Pressure 143/81 O2 Sat by Pulse 100 Oximetry - General physical appearance Narrative Exam: Gen: Awake and alert on vent. NAD ENT: NGT bilious output. ETT in place CV: s1, S2+ Resp: even and unlabored Abd: soft, mildly Tender in right abdomen, distended and tympanitic in right abdomen. No r/r/g Ext: no c/c/e - Labs 02/10/19 04:59 02/10/19 04:59
[2019-02-11] MEDS: PROTONIX IV SCH (10:44)
[2019-02-11] MEDS: SODIUM CHLORIDE FLUSH SYRINGE 10 ML IV SCH ×2 (10:44→21:42)
[2019-02-11] MEDS: SOLU-Medrol IV SCH ×2 (10:44→21:42)
[2019-02-11 10:46] LABS: Hematocrit 37.7 % (30.3-42.9); Hemoglobin 11.6 gm/dl (10.1-14.3); Mean Corpuscular HGB Conc 31 % (30-34); Mean Corpuscular Volume 89 fl (79-97); Platelet Count 111 K/mm3 (140-440); Red Blood Count 4.22 M/mm3 (3.65-5.03); Red Cell Distribution Width 18.3 % (13.2-15.2)
[2019-02-11 11:03] LABS: BUN/Creatinine Ratio 46; Blood Urea Nitrogen 23 mg/dL (7-17); Calcium 8.9 mg/dL (8.4-10.2); Hemolysis Index 11
--- NOTE | 2019-02-11 11:14 | Anesthesia Day of Surgery ---
Anesthesia Day of Surgery - Day of Surgery Patient Examined: Yes Patient H&P Reviewed: Yes Patient is NPO: Yes (pt is intubated) Beta Blockers: No Cardiac Clearance: No (has acute CHF with EF 20-25% ) Pulmonary Clearance: No (intubated ) Terell's Test: N/A
--- NOTE | 2019-02-11 11:39 | Event Note ---
Date: 02/11/19 Discussions with Surgeon- the patient clinically appears better from an abdominal exam perspective. However radiographically is not improving. She wants to get an ex lap on the patient this afternoon. Will hold off on extubation today.
--- NOTE | 2019-02-11 13:12 | Anesthesia Consultation ---
Anesthesia Consult and Med Hx Date of service: 02/11/19 - Airway ROM Head & Neck: Adequate Mental/Hyoid Distance: Adequate Intubation Access Assessment: Probably Good (patient is already intubated) - Pulmonary Exam CTA: Yes - Cardiac Exam Cardiac Exam: RRR Anesthetic Concerns: Cardiac: EF 20-25%, no known valvular issues, acute congestive heart failure exacerbation.on floor with SBP > 150s. Pulm: intubated with 8.0ETT, Acute hypoxemic respiratory failure, on MVS. acute chronic obstructive pulmonary disease exacerbation. ID:Severe Sepsis with Shock on no pressors, light sedation with fentanyl. possible acute gastrointestinal bleed. - Pre-Operative Health Status ASA Pre-Surgery Classification: ASA4 Proposed Anesthetic Plan: General - Pulmonary Hx Smoking: Yes Hx Asthma: No SOB: No COPD: Yes Hx Pneumonia: Yes (child) Hx Sleep Apnea: No - Cardiovascular System Hx Hypertension: Yes Hx Coronary Artery Disease: No Hx Peripheral Vascular Disease: No - Central Nervous System Hx Back Pain: No Hx Psychiatric Problems: No - Gastrointestinal Hx Ulcer: Yes - Endocrine Hx Cirrhosis: No - Hematic Hx Anemia: Yes Hx Sickle Cell Disease: No - Other Systems Hx Cancer: No
[2019-02-11] MEDS ORDERED: ZEMURON IV ONE ×2 (13:26→15:11)
[2019-02-11] MEDS ORDERED: NACL 0.9% 500 ML 500 ML ONE (13:30)
[2019-02-11] MEDS ORDERED: XYLOCAINE MPF 2% ONE (13:33)
[2019-02-11] MEDS ORDERED: ANCEF/STERILE WATER 2 GM/20 ML 2 GM/20 ML SYRINGE IV ONE (14:06)
[2019-02-11] MEDS ORDERED: DILAUDID ONE ×2 (14:10→15:19)
[2019-02-11] MEDS ORDERED: LACTATED RINGERS 1,000 ML ONE (14:16)
[2019-02-11] MEDS ORDERED: VERSED ONE ×2 (15:18→15:19)
--- NOTE | 2019-02-11 15:28 | Post Operative Note ---
Date of procedure: 02/11/19 Pre-op diagnosis: bowel obstruction Post-op diagnosis: other (cecal volvulus and large bowel obstruction) Findings: cecal volvulus Procedure: exploratory laparotomy, right hemicolectomy Anesthesia: RALPH Surgeon: ANSON MEI Allocation Analyst: AMBER MEADOWS Estimated blood loss: minimal Pathology: list (right colon) Specimen disposition: to lab Condition: stable Disposition: ICU
[2019-02-11] MEDS: FLAGYL 500 MG/100 ML 500 MG/100 ML BAG IV SCH (17:05)
[2019-02-11] MEDS: ceFAZolin 2 GM in NACL 0.9% 100 ML IV SCH (18:23)
[2019-02-12] MEDS: FLAGYL 500 MG/100 ML 500 MG/100 ML BAG IV SCH ×3 (01:36→16:50)
[2019-02-12] MEDS: DUONEB *Not for PRN Use IH SCH ×4 (01:52→21:22)
[2019-02-12] MEDS: ceFAZolin 2 GM in NACL 0.9% 100 ML IV SCH ×3 (02:50→18:15)
--- NOTE | 2019-02-12 02:59 | XRay Report ---
PROCEDURE: XR CHEST 1V AP TECHNIQUE: Chest radiograph single view. HISTORY: follow up respiratory failure COMPARISONS: 02/11/2019 . FINDINGS: Heart: Normal. Mediastinum/Vessels: Normal. Lungs/Pleural space: The lungs reveal stable interstitial prominence. There are no localized infiltr ates or effusions.. Bony thorax: No acute osseous abnormality. Life support devices: The ET tube and NG tube appear in good position.. IMPRESSION: Stable interstitial changes bilaterally. Satisfactory position of the ET tube and NG tub e.. This document is electronically signed by Emigdio Anand MD., Feb 12 2019 02:57:34 AM ET
[2019-02-12 04:59] LABS: Hematocrit 30.2 % (30.3-42.9); Hemoglobin 9.6 gm/dl (10.1-14.3); Mean Corpuscular HGB Conc 32 % (30-34); Mean Corpuscular Volume 88 fl (79-97); Platelet Count 131 K/mm3 (140-440); Red Blood Count 3.44 M/mm3 (3.65-5.03)
[2019-02-12 05:19] LABS: BUN/Creatinine Ratio 34; Blood Urea Nitrogen 17 mg/dL (7-17); Calcium 8.6 mg/dL (8.4-10.2); Hemolysis Index 2
[2019-02-12] MEDS: D5W/NS W/KCL 20MEQ 20 MEQ/1,000 ML BAG IV SCH (06:00)
[2019-02-12] MEDS: BROVANA NEBU IH SCH ×2 (08:25→21:22)
[2019-02-12] MEDS: PULMICORT IH SCH ×2 (08:25→21:22)
[2019-02-12] MEDS ORDERED: MORPHINE IV PRN (08:55)
--- NOTE | 2019-02-12 09:00 | Progress Note ---
Assessment and Plan Severe Sepsis with Shock Acute hypoxemic respiratory failure, on MVS Symptomatic anemia with positive stool guaiac. Acute chronic obstructive pulmonary disease exacerbation. Possible acute gastrointestinal bleed. Acute congestive heart failure exacerbation. Hypokalemia, resolved Elevated serum troponin. Adult failure to thrive Thrombocytopenia Hold fentanyl, place on SBT PS8/6 Monitor hemodynamics and respiratory status Get weaning parameters in 2 hours, if acceptable goal to liberate from mechanical ventilatory support. [employer], PT/OT to evaluate and treat once liberated. Thrombocytopenia, with >50% drop since admission, has been on SCDs fro VTE prophylaxis Trend platelet counts Discussed with RT and RN at the bedside -Steroid taper in view of heart failure -Wean supplemental oxygen to keep O2 sats 88-90% -Lung protective strategies -Oxygen restrictive strategies -Daily ABGs/CXR -VAP bundle addressed -Avoid nephrotoxic agents, adjust all medications for CrCL -Strict intake and output monitoring -Daily SAT's & SBT's -Sedation target for RASS 0 to -1 -Stress ulcer prophylaxis -VTE prophylaxis -Accuchecks with glycemic control. Target glucose of 140-180 mg/dL -Bronchodilators with pulmonary hygiene per RT -Maintenance of sleep -wake cycle -Mobility as tolerated by hemodynamics -Influenza and pneumonia vaccination per protocol PROGNOSIS: GUARDED CONDITION: CRITICAL CODE STATUS: FULL CODE The high probability of a clinically significant, sudden or life-threatening deterioration of the [respiratory, cardiovascular, gastrointestinal, hematology] system(s) required my full and direct attention, intervention and personal management. The aggregate critical care time was [31] minutes without overlap. Time includes spent on; [x] Data Review and interpretation [x] Patient assessment and monitoring of vital signs [x] Documentation [x] Medication orders and management Subjective Date of service: 02/12/19 Principal diagnosis: Ac hypoxemic Resp failure; Severe Anemia; AE-COPD; G.I. Bleed; Septic Shock Interval history: Patient is seen today for: Acute hypoxemic Resp failure; Symptomatic anemia; AE- COPD; G.I. Bleed; Acute congestive heart failure exacerbation; Hypotension; SIRS Seen and examined at bedside; 24-hour events reviewed; nursing and respiratory care staff consulted; no adverse overnight events reported to me;No reported fevers, no chills, on fentanyl at 2mcg, awake , alert and obeying commands. Tolerated PSV yesterday s/p right hemicolectomy from acute bowel obstruction secondary to volvulous- uneventful surgery Hypothermic since the surgery On full mechanical ventilator support PRVC-AC 16/350/6/30% ABG 7.48/37.6/119/28.2 Vitals, labs, medications, chart and imaging reviewed. Objective Vital Signs - 12hr 02/11/19 02/11/19 02/11/19 21:47 22:00 22:01 Temperature Pulse Rate 111 H 101 H 101 H Pulse Rate [ Anterior Bilateral Throughout] Pulse Rate [ From Monitor] Respiratory 18 15 13 Rate Respiratory Rate [Anterior Bilateral Throughout] Blood Pressure 117/79 113/72 113/72 O2 Sat by Pulse 99 99 Oximetry 02/11/19 02/11/19 02/11/19 22:05 23:00 23:16 Temperature 99.4 F Pulse Rate 100 H Pulse Rate [ Anterior Bilateral Throughout] Pulse Rate [ 107 H 96 H From Monitor] Respiratory 17 15 Rate Respiratory Rate [Anterior Bilateral Throughout] Blood Pressure 118/76 O2 Sat by Pulse 100 100 Oximetry 02/12/19 02/12/19 02/12/19 00:00 01:00 01:52 Temperature Pulse Rate 108 H 97 H Pulse Rate [ 93 H Anterior Bilateral Throughout] Pulse Rate [ 96 H From Monitor] Respiratory 14 14 Rate Respiratory 20 Rate [Anterior Bilateral Throughout] Blood Pressure 122/76 104/65 O2 Sat by Pulse 100 Oximetry 02/12/19 02/12/19 02/12/19 02:00 02:15 03:00 Temperature Pulse Rate 91 H 91 H Pulse Rate [ 91 H Anterior Bilateral Throughout] Pulse Rate [ 91 H From Monitor] Respiratory 14 13 Rate Respiratory 19 Rate [Anterior Bilateral Throughout] Blood Pressure 100/62 102/63 O2 Sat by Pulse 99 Oximetry 02/12/19 02/12/19 02/12/19 03:50 04:00 05:00 Temperature 99.7 F H Pulse Rate 91 H 90 Pulse Rate [ Anterior Bilateral Throughout] Pulse Rate [ 96 H From Monitor] Respiratory 14 15 Rate Respiratory Rate [Anterior Bilateral Throughout] Blood Pressure 103/64 96/58 O2 Sat by Pulse 99 98 Oximetry 02/12/19 02/12/19 02/12/19 05:15 06:00 08:00 Temperature 99.7 F H Pulse Rate 89 92 H Pulse Rate [ Anterior Bilateral Throughout] Pulse Rate [ From Monitor] Respiratory 16 Rate Respiratory Rate [Anterior Bilateral Throughout] Blood Pressure 103/61 102/64 O2 Sat by Pulse 99 Oximetry 02/12/19 02/12/19 08:18 08:26 Temperature Pulse Rate 93 H Pulse Rate [ 91 H Anterior Bilateral Throughout] Pulse Rate [ From Monitor] Respiratory 11 L Rate Respiratory 10 L Rate [Anterior Bilateral Throughout] Blood Pressure 103/62 O2 Sat by Pulse 99 Oximetry Constitutional: appears uncomfortable, other (elderly looking petite CF normoc ephalic with increased work of breathing) Eyes: non-icteric ENT: oropharynx dry Neck: supple, no lymphadenopathy, JVD Effort: very labored Ascultation: Bilateral: diminished breath sounds, rales, rhonchi, other (occassional accessory muscle use) Percussion: Bilateral: not dull Cardiovascular: irregular rhythm Gastrointestinal: normoactive bowel sounds, soft, non-tender, non-distended Integumentary: normal Extremities: no cyanosis, pink and warm, pulses normal, no ischemia or petechiae Neurologic: non-focal exam (grossly), pupils equal and round, CN II-XII normal Psychiatric: anxious CBC and BMP: 02/13/19 04:33 02/13/19 04:33 ABG, PT/INR, D-dimer: ABG POC ABG pH 7.466 (7.35-7.45) H 02/12/19 05:44 POC ABG pCO2 33.5 (35-45) L 02/12/19 05:44 POC ABG pO2 118 (80-105) H 02/12/19 05:44 POC ABG HCO3 24.1 (22-26 mml/L) 02/12/19 05:44 POC ABG Total CO2 25 (23-27mmol/L) 02/12/19 05:44 POC ABG O2 Sat 99 02/12/19 05:44 PT/INR, D-dimer PT 19.3 Sec. (12.2-14.9) H 02/03/19 19:24 INR 1.52 (0.87-1.13) H 02/03/19 19:24 Abnormal lab findings: Abnormal Labs 02/03/19 02/03/19 02/03/19 02:57 18:06 18:06 WBC RBC 0.88 L Hgb 1.9 L* Hct 7.1 L* MCH 22 L MCHC 27 L RDW 23.3 H Plt Count 489 H [place] % (Auto) 10.1 H Lymph # 1.1 L Seg Neutrophils % 71.2 H Seg Neuts % (Manual) Lymphocytes % (Manual) Seg Neutrophils # Man Lymphocytes # (Manual) PT INR POC ABG pH POC ABG pCO2 POC ABG pO2 Sodium Potassium Chloride Carbon Dioxide BUN Creatinine Glucose POC Glucose Lactic Acid Calcium Phosphorus Troponin T C-Reactive Protein NT-Pro-B Natriuret Pep 9160 H Total Protein Albumin Triglycerides HDL Cholesterol Urine WBC (Auto) 7.0 H Crossmatch 02/03/19 02/03/19 02/03/19 18:06 18:08 18:08 WBC RBC Hgb Hct MCH MCHC RDW Plt Count [place] % (Auto) Lymph # Seg Neutrophils % Seg Neuts % (Manual) Lymphocytes % (Manual) Seg Neutrophils # Man Lymphocytes # (Manual) PT INR POC ABG pH POC ABG pCO2 POC ABG pO2 Sodium Potassium 3.3 L Chloride Carbon Dioxide 17 L BUN Creatinine Glucose POC Glucose Lactic Acid 9.90 H* Calcium 7.9 L Phosphorus Troponin T 0.134 H* C-Reactive Protein NT-Pro-B Natriuret Pep Total Protein 5.1 L Albumin 2.8 L Triglycerides 164 H HDL Cholesterol 31 L Urine WBC (Auto) Crossmatch See Detail 02/03/19 02/03/19 02/03/19 19:24 19:24 19:24 WBC RBC Hgb Hct MCH MCHC RDW Plt Count [place] % (Auto) Lymph # Seg Neutrophils % Seg Neuts % (Manual) Lymphocytes % (Manual) Seg Neutrophils # Man Lymphocytes # (Manual) PT 19.3 H INR 1.52 H POC ABG pH POC ABG pCO2 POC ABG pO2 Sodium Potassium Chloride Carbon Dioxide BUN Creatinine Glucose POC Glucose Lactic Acid 6.30 H* Calcium Phosphorus Troponin T 0.139 H* C-Reactive Protein NT-Pro-B Natriuret Pep Total Protein Albumin Triglycerides HDL Cholesterol Urine WBC (Auto) Crossmatch 02/03/19 02/03/19 02/04/19 20:30 23:36 01:18 WBC RBC Hgb Hct MCH MCHC RDW Plt Count [place] % (Auto) Lymph # Seg Neutrophils % Seg Neuts % (Manual) Lymphocytes % (Manual) Seg Neutrophils # Man Lymphocytes # (Manual) PT INR POC ABG pH 7.515 H POC ABG pCO2 POC ABG pO2 121 H Sodium Potassium Chloride Carbon Dioxide BUN Creatinine Glucose POC Glucose Lactic Acid 6.50 H* 5.70 H* Calcium Phosphorus Troponin T C-Reactive Protein NT-Pro-B Natriuret Pep Total Protein Albumin Triglycerides HDL Cholesterol Urine WBC (Auto) Crossmatch 02/04/19 02/04/19 02/04/19 04:35 04:35 04:35 WBC 17.5 H RBC Hgb Hct MCH 27 L MCHC RDW 15.9 H Plt Count [place] % (Auto) Lymph # Seg Neutrophils % Seg Neuts % (Manual) 96.0 H Lymphocytes % (Manual) 1.0 L Seg Neutrophils # Man 16.8 H Lymphocytes # (Manual) 0.2 L PT INR POC ABG pH POC ABG pCO2 POC ABG pO2 Sodium 147 H Potassium 3.2 L Chloride Carbon Dioxide 21 L BUN Creatinine Glucose 170 H POC Glucose Lactic Acid 3.60 H* Calcium 7.9 L Phosphorus Troponin T C-Reactive Protein NT-Pro-B Natriuret Pep Total Protein Albumin Triglycerides HDL Cholesterol Urine WBC (Auto) Crossmatch 02/04/19 02/04/19 02/04/19 10:59 17:07 17:07 WBC RBC Hgb Hct MCH MCHC RDW Plt Count [place] % (Auto) Lymph # Seg Neutrophils % Seg Neuts % (Manual) Lymphocytes % (Manual) Seg Neutrophils # Man Lymphocytes # (Manual) PT INR POC ABG pH POC ABG pCO2 POC ABG pO2 Sodium Potassium 3.1 L Chloride Carbon Dioxide BUN Creatinine Glucose POC Glucose Lactic Acid 2.30 H* Calcium Phosphorus Troponin T C-Reactive Protein 9.30 H NT-Pro-B Natriuret Pep Total Protein Albumin Triglycerides HDL Cholesterol Urine WBC (Auto) Crossmatch 02/04/19 02/04/19 02/05/19 17:15 21:04 00:05 WBC RBC Hgb Hct MCH MCHC RDW Plt Count [place] % (Auto) Lymph # Seg Neutrophils % Seg Neuts % (Manual) Lymphocytes % (Manual) Seg Neutrophils # Man Lymphocytes # (Manual) PT INR POC ABG pH 7.310 L POC ABG pCO2 POC ABG pO2 68 L Sodium Potassium Chloride Carbon Dioxide BUN Creatinine Glucose POC Glucose Lactic Acid 2.40 H* 2.70 H* Calcium Phosphorus Troponin T C-Reactive Protein NT-Pro-B Natriuret Pep Total Protein Albumin Triglycerides HDL Cholesterol Urine WBC (Auto) Crossmatch 02/05/19 02/05/19 02/05/19 04:41 04:41 12:54 WBC 15.1 H RBC Hgb Hct MCH MCHC RDW 16.6 H Plt Count [place] % (Auto) Lymph # Seg Neutrophils % Seg Neuts % (Manual) 90.0 H Lymphocytes % (Manual) 2.0 L Seg Neutrophils # Man 13.6 H Lymphocytes # (Manual) 0.3 L PT INR POC ABG pH POC ABG pCO2 POC ABG pO2 74 L Sodium 147 H Potassium Chloride 114.1 H Carbon Dioxide 20 L BUN 19 H Creatinine Glucose 192 H POC Glucose Lactic Acid Calcium 7.4 L Phosphorus Troponin T C-Reactive Protein NT-Pro-B Natriuret Pep Total Protein Albumin Triglycerides HDL Cholesterol Urine WBC (Auto) Crossmatch 02/06/19 02/06/19 02/06/19 01:46 11:42 11:42 WBC 21.1 H RBC Hgb Hct MCH MCHC RDW 17.0 H Plt Count [place] % (Auto) Lymph # Seg Neutrophils % Seg Neuts % (Manual) Lymphocytes % (Manual) Seg Neutrophils # Man Lymphocytes # (Manual) PT INR POC ABG pH POC ABG pCO2 34.4 L POC ABG pO2 56 L Sodium 151 H Potassium Chloride 112.1 H Carbon Dioxide BUN Creatinine Glucose 187 H POC Glucose Lactic Acid Calcium 8.1 L Phosphorus Troponin T C-Reactive Protein NT-Pro-B Natriuret Pep Total Protein Albumin Triglycerides HDL Cholesterol Urine WBC (Auto) Crossmatch 02/06/19 02/07/19 02/07/19 12:04 04:26 05:27 WBC 21.7 H RBC Hgb Hct MCH MCHC RDW 17.6 H Plt Count [place] % (Auto) Lymph # Seg Neutrophils % Seg Neuts % (Manual) 98.0 H Lymphocytes % (Manual) 1.0 L Seg Neutrophils # Man 21.3 H Lymphocytes # (Manual) 0.2 L PT INR POC ABG pH 7.481 H POC ABG pCO2 31.3 L POC ABG pO2 63 L 50 L Sodium Potassium Chloride Carbon Dioxide BUN Creatinine Glucose POC Glucose Lactic Acid Calcium Phosphorus Troponin T C-Reactive Protein NT-Pro-B Natriuret Pep Total Protein Albumin Triglycerides HDL Cholesterol Urine WBC (Auto) Crossmatch 02/07/19 02/07/19 02/07/19 05:27 05:29 23:07 WBC RBC Hgb Hct MCH MCHC RDW Plt Count [place] % (Auto) Lymph # Seg Neutrophils % Seg Neuts % (Manual) Lymphocytes % (Manual) Seg Neutrophils # Man Lymphocytes # (Manual) PT INR POC ABG pH POC ABG pCO2 POC ABG pO2 Sodium 147 H Potassium Chloride 108.4 H Carbon Dioxide BUN Creatinine 0.6 L Glucose 184 H POC Glucose 188 H 172 H Lactic Acid Calcium 8.3 L Phosphorus 1.50 L Troponin T C-Reactive Protein NT-Pro-B Natriuret Pep Total Protein Albumin Triglycerides HDL Cholesterol Urine WBC (Auto) Crossmatch 02/08/19 02/08/19 02/08/19 04:26 04:26 11:50 WBC 18.8 H RBC Hgb Hct MCH MCHC RDW 17.7 H Plt Count [place] % (Auto) Lymph # Seg Neutrophils % Seg Neuts % (Manual) Lymphocytes % (Manual) Seg Neutrophils # Man Lymphocytes # (Manual) PT INR POC ABG pH POC ABG pCO2 POC ABG pO2 Sodium Potassium Chloride Carbon Dioxide BUN 19 H Creatinine 0.6 L Glucose 190 H POC Glucose 185 H Lactic Acid Calcium 8.2 L Phosphorus Troponin T C-Reactive Protein NT-Pro-B Natriuret Pep Total Protein Albumin Triglycerides HDL Cholesterol Urine WBC (Auto) Crossmatch 02/08/19 02/08/19 02/08/19 12:01 17:44 18:52 WBC RBC Hgb Hct MCH MCHC RDW Plt Count [place] % (Auto) Lymph # Seg Neutrophils % Seg Neuts % (Manual) Lymphocytes % (Manual) Seg Neutrophils # Man Lymphocytes # (Manual) PT INR POC ABG pH POC ABG pCO2 POC ABG pO2 Sodium Potassium Chloride Carbon Dioxide BUN Creatinine Glucose POC Glucose 186 H 143 H Lactic Acid Calcium Phosphorus Troponin T 0.058 H D C-Reactive Protein NT-Pro-B Natriuret Pep Total Protein Albumin Triglycerides HDL Cholesterol Urine WBC (Auto) Crossmatch 02/08/19 02/09/19 02/09/19 23:24 03:57 03:57 WBC 20.3 H RBC Hgb Hct MCH MCHC RDW 18.0 H Plt Count 92 L [place] % (Auto) Lymph # Seg Neutrophils % Seg Neuts % (Manual) Lymphocytes % (Manual) Seg Neutrophils # Man Lymphocytes # (Manual) PT INR POC ABG pH POC ABG pCO2 POC ABG pO2 Sodium Potassium Chloride Carbon Dioxide BUN 29 H Creatinine 0.5 L Glucose 172 H POC Glucose 205 H Lactic Acid Calcium Phosphorus Troponin T C-Reactive Protein NT-Pro-B Natriuret Pep Total Protein Albumin Triglycerides HDL Cholesterol Urine WBC (Auto) Crossmatch 02/09/19 02/09/19 02/09/19 04:49 12:11 17:27 WBC RBC Hgb Hct MCH MCHC RDW Plt Count [place] % (Auto) Lymph # Seg Neutrophils % Seg Neuts % (Manual) Lymphocytes % (Manual) Seg Neutrophils # Man Lymphocytes # (Manual) PT INR POC ABG pH 7.473 H POC ABG pCO2 POC ABG pO2 Sodium Potassium Chloride Carbon Dioxide BUN Creatinine Glucose POC Glucose 136 H 149 H Lactic Acid Calcium Phosphorus Troponin T C-Reactive Protein NT-Pro-B Natriuret Pep Total Protein Albumin Triglycerides HDL Cholesterol Urine WBC (Auto) Crossmatch 02/10/19 02/10/19 02/10/19 04:59 04:59 04:59 WBC 16.5 H RBC Hgb Hct MCH MCHC RDW 17.7 H Plt Count 94 L [place] % (Auto) Lymph # Seg Neutrophils % Seg Neuts % (Manual) Lymphocytes % (Manual) Seg Neutrophils # Man Lymphocytes # (Manual) PT INR POC ABG pH POC ABG pCO2 POC ABG pO2 Sodium Potassium Chloride Carbon Dioxide BUN 31 H 31 H Creatinine 0.6 L 0.6 L Glucose 149 H 152 H POC Glucose Lactic Acid Calcium Phosphorus Troponin T C-Reactive Protein NT-Pro-B Natriuret Pep Total Protein Albumin Triglycerides HDL Cholesterol Urine WBC (Auto) Crossmatch 02/10/19 02/11/19 02/11/19 05:10 00:06 10:26 WBC 16.4 H RBC Hgb Hct MCH MCHC RDW 18.3 H Plt Count 111 L [place] % (Auto) Lymph # Seg Neutrophils % Seg Neuts % (Manual) Lymphocytes % (Manual) Seg Neutrophils # Man Lymphocytes # (Manual) PT INR POC ABG pH 7.518 H 7.482 H POC ABG pCO2 POC ABG pO2 173 H 119 H Sodium Potassium Chloride Carbon Dioxide BUN Creatinine Glucose POC Glucose Lactic Acid Calcium Phosphorus Troponin T C-Reactive Protein NT-Pro-B Natriuret Pep Total Protein Albumin Triglycerides HDL Cholesterol Urine WBC (Auto) Crossmatch 02/11/19 02/12/19 02/12/19 10:26 04:19 04:19 WBC 16.8 H RBC 3.44 L Hgb 9.6 L Hct 30.2 L D MCH MCHC RDW 18.0 H Plt Count 131 L [place] % (Auto) Lymph # Seg Neutrophils % Seg Neuts % (Manual) Lymphocytes % (Manual) Seg Neutrophils # Man Lymphocytes # (Manual) PT INR POC ABG pH POC ABG pCO2 POC ABG pO2 Sodium 148 H 147 H Potassium Chloride 112.7 H 114.7 H Carbon Dioxide BUN 23 H Creatinine 0.5 L 0.5 L Glucose 195 H 152 H POC Glucose Lactic Acid Calcium Phosphorus Troponin T C-Reactive Protein NT-Pro-B Natriuret Pep Total Protein Albumin Triglycerides HDL Cholesterol Urine WBC (Auto) Crossmatch 02/12/19 05:44 WBC RBC Hgb Hct MCH MCHC RDW Plt Count [place] % (Auto) Lymph # Seg Neutrophils % Seg Neuts % (Manual) Lymphocytes % (Manual) Seg Neutrophils # Man Lymphocytes # (Manual) PT INR POC ABG pH 7.466 H POC ABG pCO2 33.5 L POC ABG pO2 118 H Sodium Potassium Chloride Carbon Dioxide BUN Creatinine Glucose POC Glucose Lactic Acid Calcium Phosphorus Troponin T C-Reactive Protein NT-Pro-B Natriuret Pep Total Protein Albumin Triglycerides HDL Cholesterol Urine WBC (Auto) Crossmatch Allied health notes reviewed: nursing
[2019-02-12] MEDS: SOLU-Medrol IV SCH ×2 (09:35→21:18)
[2019-02-12] MEDS: SODIUM CHLORIDE FLUSH SYRINGE 10 ML IV SCH ×2 (09:35→21:19)
[2019-02-12] MEDS: PROTONIX IV SCH (09:35)
[2019-02-12] MEDS: MORPHINE IV PRN ×2 (09:54→15:35)
--- NOTE | 2019-02-12 12:19 | Progress Note ---
Assessment and Plan 68 yo F s/p exploratory laparotomy, right hemicolectomy POD1, for cecal volvulus and large bowel obstruction 1. ARF on vent 2. anemia 3. GIB 4. n/v, SBO 5. hx CHF, EF 20-25% Plan: 1. NPO 2. NGT to LIWS 3. IVF 4. protonix IV 5. ABF 6. castillo catheter removed 7. DVT ppx 8. vent management per ICU 9. prn pain control - morphine IV ordered 10. If extubated, please obtain swallow evaluation Discussed plan with patient's at bedside. Thank you, please call with questions. Subjective Date of service: 02/12/19 Narrative: Pt seen and examined. Awake on vent. No overnight events. Fentanyl gtt stopped. Objective Vital Signs - 12hr 02/12/19 02/12/19 02/12/19 01:00 01:52 02:00 Temperature Pulse Rate 97 H 91 H Pulse Rate [ 93 H Anterior Bilateral Throughout] Pulse Rate [ 91 H From Monitor] Respiratory 14 14 Rate Respiratory 20 Rate [Anterior Bilateral Throughout] Blood Pressure 104/65 100/62 O2 Sat by Pulse 99 Oximetry 02/12/19 02/12/19 02/12/19 02:15 03:00 03:50 Temperature 99.7 F H Pulse Rate 91 H Pulse Rate [ 91 H Anterior Bilateral Throughout] Pulse Rate [ From Monitor] Respiratory 13 Rate Respiratory 19 Rate [Anterior Bilateral Throughout] Blood Pressure 102/63 O2 Sat by Pulse Oximetry 02/12/19 02/12/19 02/12/19 04:00 05:00 05:15 Temperature Pulse Rate 91 H 90 89 Pulse Rate [ Anterior Bilateral Throughout] Pulse Rate [ 96 H From Monitor] Respiratory 14 15 Rate Respiratory Rate [Anterior Bilateral Throughout] Blood Pressure 103/64 96/58 103/61 O2 Sat by Pulse 99 98 99 Oximetry 02/12/19 02/12/19 02/12/19 06:00 07:00 08:00 Temperature 99.7 F H Pulse Rate 92 H 86 85 Pulse Rate [ Anterior Bilateral Throughout] Pulse Rate [ 96 H From Monitor] Respiratory 16 15 15 Rate Respiratory Rate [Anterior Bilateral Throughout] Blood Pressure 102/64 105/64 102/62 O2 Sat by Pulse 100 Oximetry 02/12/19 02/12/19 02/12/19 08:18 08:26 09:00 Temperature Pulse Rate 93 H 90 Pulse Rate [ 91 H Anterior Bilateral Throughout] Pulse Rate [ From Monitor] Respiratory 11 L 11 L Rate Respiratory 10 L Rate [Anterior Bilateral Throughout] Blood Pressure 103/62 113/71 O2 Sat by Pulse 99 Oximetry 02/12/19 02/12/19 02/12/19 09:07 10:00 11:00 Temperature Pulse Rate 99 H 98 H Pulse Rate [ 91 H Anterior Bilateral Throughout] Pulse Rate [ From Monitor] Respiratory 13 16 Rate Respiratory 15 Rate [Anterior Bilateral Throughout] Blood Pressure 124/70 123/81 O2 Sat by Pulse 98 99 Oximetry 02/12/19 02/12/19 11:46 12:00 Temperature 99.1 F Pulse Rate 96 H 99 H Pulse Rate [ Anterior Bilateral Throughout] Pulse Rate [ 94 H From Monitor] Respiratory 17 17 Rate Respiratory Rate [Anterior Bilateral Throughout] Blood Pressure 133/79 127/84 O2 Sat by Pulse 98 99 Oximetry - General physical appearance Narrative Exam: Gen: AAOx3. moderate distress due to abdominal pain ENT: NGT and ETT in place. Minimal brown gastric drainage from NGT CV: S1, S2+ Resp: on vent - CPAP trial Abd; soft, mildly distended, mildly TTP in midline. Dressing c/d/i Ext: no c/c/e - Labs 02/12/19 04:19 02/12/19 04:19 Diabetes panel 02/12/19 Range/Units 04:19 Sodium 147 H (137-145) mmol/L Potassium 4.6 (3.6-5.0) mmol/L Chloride 114.7 H (98-107) mmol/L Carbon Dioxide 23 (22-30) mmol/L BUN 17 (7-17) mg/dL Creatinine 0.5 L (0.7-1.2) mg/dL Glucose 152 H (65-100) mg/dL Calcium 8.6 (8.4-10.2) mg/dL Calcium panel 02/12/19 Range/Units 04:19 Calcium 8.6 (8.4-10.2) mg/dL Pituitary panel 02/12/19 Range/Units 04:19 Sodium 147 H (137-145) mmol/L Potassium 4.6 (3.6-5.0) mmol/L Chloride 114.7 H (98-107) mmol/L Carbon Dioxide 23 (22-30) mmol/L BUN 17 (7-17) mg/dL Creatinine 0.5 L (0.7-1.2) mg/dL Glucose 152 H (65-100) mg/dL Calcium 8.6 (8.4-10.2) mg/dL Adrenal panel 02/12/19 Range/Units 04:19 Sodium 147 H (137-145) mmol/L Potassium 4.6 (3.6-5.0) mmol/L Chloride 114.7 H (98-107) mmol/L Carbon Dioxide 23 (22-30) mmol/L BUN 17 (7-17) mg/dL Creatinine 0.5 L (0.7-1.2) mg/dL Glucose 152 H (65-100) mg/dL Calcium 8.6 (8.4-10.2) mg/dL
--- NOTE | 2019-02-12 13:49 | Progress Note ---
Assessment and Plan 1. Hypernatremia: High sodium is likely from diuretics. Increase in the sodium level noted. Monitor Sodium level. 2. FEN: On IV fluids. Monitor lytes. 3. Respiratory failure: COPD exacerbation. On vent. 4. Bowel obstruction: Followed by Gen. Surgery. 5. Leukocytosis. Subjective Date of service: 02/11/19 Principal diagnosis: Ac hypoxemic Resp failure; Severe Anemia; AE-COPD; G.I. Bleed; Septic Shock Interval history: Patient was seen and examined at the bedside. Objective - Vital Signs Vital signs: Vital Signs - 12hr 02/12/19 02/12/19 02/12/19 01:52 02:00 02:15 Temperature Pulse Rate 91 H Pulse Rate [ 93 H 91 H Anterior Bilateral Throughout] Pulse Rate [ 91 H From Monitor] Respiratory 14 Rate Respiratory 20 19 Rate [Anterior Bilateral Throughout] Blood Pressure 100/62 O2 Sat by Pulse 99 Oximetry 02/12/19 02/12/19 02/12/19 03:00 03:50 04:00 Temperature 99.7 F H Pulse Rate 91 H 91 H Pulse Rate [ Anterior Bilateral Throughout] Pulse Rate [ 96 H From Monitor] Respiratory 13 14 Rate Respiratory Rate [Anterior Bilateral Throughout] Blood Pressure 102/63 103/64 O2 Sat by Pulse 99 Oximetry 02/12/19 02/12/19 02/12/19 05:00 05:15 06:00 Temperature Pulse Rate 90 89 92 H Pulse Rate [ Anterior Bilateral Throughout] Pulse Rate [ From Monitor] Respiratory 15 16 Rate Respiratory Rate [Anterior Bilateral Throughout] Blood Pressure 96/58 103/61 102/64 O2 Sat by Pulse 98 99 Oximetry 02/12/19 02/12/19 02/12/19 07:00 08:00 08:18 Temperature 99.7 F H Pulse Rate 86 85 93 H Pulse Rate [ Anterior Bilateral Throughout] Pulse Rate [ 96 H From Monitor] Respiratory 15 15 11 L Rate Respiratory Rate [Anterior Bilateral Throughout] Blood Pressure 105/64 102/62 103/62 O2 Sat by Pulse 100 99 Oximetry 02/12/19 02/12/19 02/12/19 08:26 09:00 09:07 Temperature Pulse Rate 90 Pulse Rate [ 91 H 91 H Anterior Bilateral Throughout] Pulse Rate [ From Monitor] Respiratory 11 L Rate Respiratory 10 L 15 Rate [Anterior Bilateral Throughout] Blood Pressure 113/71 O2 Sat by Pulse Oximetry 02/12/19 02/12/19 02/12/19 10:00 11:00 11:46 Temperature Pulse Rate 99 H 98 H 96 H Pulse Rate [ Anterior Bilateral Throughout] Pulse Rate [ From Monitor] Respiratory 13 16 17 Rate Respiratory Rate [Anterior Bilateral Throughout] Blood Pressure 124/70 123/81 133/79 O2 Sat by Pulse 98 99 98 Oximetry 02/12/19 12:00 Temperature 99.1 F Pulse Rate 99 H Pulse Rate [ Anterior Bilateral Throughout] Pulse Rate [ 94 H From Monitor] Respiratory 17 Rate Respiratory Rate [Anterior Bilateral Throughout] Blood Pressure 127/84 O2 Sat by Pulse 99 Oximetry - General Appearance General appearance: well-developed, appears stated age, intubated, other (on vent) EENT: ATNC, PERRL Neck: supple Respiratory: Present: Clear to Ascultation Cardiology: regular, S1S2, no murmurs Gastrointestinal: normoactive bowel sounds, no tenderness Integumentary: no rash, warm and dry Neurologic: other (opens eyes) Musculoskeletal: other (no edema) - Lab 02/12/19 04:19 02/12/19 04:19 Most recent lab results Calcium 8.6 mg/dL (8.4-10.2) 02/12/19 04:19 Phosphorus 4.00 mg/dL (2.5-4.5) 02/10/19 04:59 Magnesium 2.00 mg/dL (1.7-2.3) 02/10/19 04:59 Medications & Allergies - Medications Allergies/Adverse Reactions: Allergies No Known Allergies Allergy (Unverified 02/03/19 18:28) Home Medications: Home Medications Medication Instructions Recorded Confirmed Last Taken Type No Known Home Medications [No 02/07/19 02/07/19 Unknown History Reported Home Medications] Active Medications: Generic Name Dose Route Start Last Admin Trade Name Freq PRN Reason Stop Dose Admin Albuterol/Ipratropium 1 ampul 02/04/19 02:00 02/12/19 08:25 Duoneb *Not For Prn Use* IH 1 ampul Q6HRT JOEL Administration Lipase/Protease/Amylase 1 each 02/08/19 16:37 Juan Smith 10,500 Unit FEEDTUBE PRN PRN For Clogged Feeding Tube Arformoterol Tartrate 15 mcg 02/04/19 14:15 02/12/19 08:25 Brovana Nebu IH 15 mcg Q12HRT JOEL Administration Budesonide 0.5 mg 02/04/19 20:00 02/12/19 08:25 Pulmicort IH 0.5 mg Q12HRT JOEL Administration Hydrophilic Ointment 1 applic 02/06/19 10:50 Vaseline Lip Therapy TP Q2HR PRN Dry Lips Potassium Chloride/Dextrose/Sod Cl 20 meq in 1,000 mls @ 50 mls/hr 02/09/19 19:00 02/12/19 08:57 D5w/Ns W/Kcl 20meq IV 50 mls/hr DIRECT JOEL Infusion Cefazolin Sodium 2 gm/ Sodium 100 mls @ 200 mls/hr 02/11/19 18:00 02/12/19 09:33 Chloride IV 200 mls/hr Q8H JOEL Administration Protocol Metronidazole 500 mg in 100 mls @ 100 mls/hr 02/11/19 17:00 02/12/19 08:23 Flagyl 500 Mg/100 Ml IV 100 mls/hr Q8H JOEL Administration Protocol Methylprednisolone Sodium Succinate 40 mg 02/04/19 15:00 02/12/19 09:35 Solu-Medrol IV 02/12/19 23:59 40 mg Q12HR JOEL Administration Methylprednisolone Sodium Succinate 20 mg 02/13/19 10:00 Solu-Medrol IV 02/13/19 22:01 Q12HR JOEL Methylprednisolone Sodium Succinate 20 mg 02/14/19 10:00 Solu-Medrol IV 02/16/19 10:01 DAILY [facility] Morphine Sulfate 1 mg 02/12/19 14:00 Morphine IV Q4H PRN Pain, Moderate (4-6) Multi-Ingred Cream/Lotion/Oil/Oint 1 applic 02/06/19 10:50 Artificial Tears Ophth Oint OU Q4HR PRN Dry Eye(s) Ondansetron HCl 4 mg 02/03/19 20:27 02/09/19 16:37 Zofran IV 4 mg Q8H PRN Administration Nausea And Vomiting Pantoprazole Sodium 40 mg 02/09/19 19:00 02/12/19 09:35 Protonix IV 40 mg QDAY JOEL Administration Simple Syrup 15 ml 02/08/19 16:37 Simple Syrup FEEDTUBE PRN PRN Hypoglycemia Simple Syrup 30 ml 02/08/19 16:37 Simple Syrup FEEDTUBE PRN PRN Hypoglycemia Sodium Bicarbonate 325 mg 02/08/19 16:37 Sodium Bicarbonate FEEDTUBE PRN PRN For Clogged Feeding Tube Sodium Chloride 10 ml 02/03/19 22:00 02/12/19 09:35 Sodium Chloride Flush Syringe 10 Ml IV 10 ml BID JOEL Administration Sodium Chloride 10 ml 02/03/19 20:27 Sodium Chloride Flush Syringe 10 Ml IV PRN PRN LINE FLUSH
--- NOTE | 2019-02-12 13:51 | Progress Note ---
Assessment and Plan Assessment and plan: Severe Sepsis with Shock. Continue pressors to maintain MAP greater than 65. Follow-up blood cultures. Acute hypoxemic respiratory failure, on MVS. Continue mechanical ventilation per pulmonary. Follow ABG/chest x-ray. Daily SAT's & SBT's Symptomatic anemia with probable GIB. Monitor H&H closely and transfuse for hemoglobin less than 7. GI signed off. Continue PPI. Patient will need EGD when stable. Acute chronic obstructive pulmonary disease exacerbation. Continue steroid taper. Bronchodilators and nebulizer treatment. Pulmonary following. Acute congestive heart failure exacerbation. Strict intake and output monitoring Hypokalemia, resolved Elevated serum troponin. Etiology likely secondary to #1. ? Type II IA. Adult failure to thrive. PT/OT evaluation once patient liberated from the ventilator. Thrombocytopenia Continuing to trend platelet counts. Check HIT panel History Interval history: Patient is about 71-year-old female with PMHx of CHF, COPD, who was brought to the ER by EMS after a fall at home, altered mental status, respiratory distress. Per EMS patient was found in severe respiratory distress, laying on the floor and covered in her feces. According to EMS the had asked a neighbor to call EMS because the patient fell on the floor and he was unable to pick her up. He states that she had been sick for a few days, she had trouble breathing, and he had been taking a lot of "goody powder" for pain. On arrival to the ER patient was lethargic, responded to name, her blood pressure was 80/54, the t emperature was 97.1, respiration was 40 BPM, she had h&h of 1.9/7.1, GI was consulted and she was admitted for acute GI bleed, acute blood loss anemia, CHF (BNP was 9100) and COPD exacerbation. respiratory failure worsened, so was intubated. She was seen by GI Physician, put on Protonix iv, but EGD not done because unstable. Patient remained intubated. she started vomiting and CT revealed poss bowel obstruction, surg consulted and evaluated her. The patient underwent exploratory laparotomy, right hemicolectomy for cecal volvulus and large bowel obstruction. Patient remains on mechanical ventilation with NGT to [facility] Hospitalist Physical - Constitutional Vitals: Temp Pulse Resp BP Pulse Ox 99.1 F 94 H 17 127/84 99 02/12/19 12:00 02/12/19 12:00 02/12/19 12:00 02/12/19 12:00 02/12/19 12:00 General appearance: Present: cachectic, other (mechanical ventilation with NGT to [facility]) - EENT Eyes: Present: PERRL, EOM intact ENT: hearing intact, clear oral mucosa, dentition normal - Neck Neck: Present: supple, normal ROM - Respiratory Respiratory effort: normal Respiratory: bilateral: diminished, rhonchi - Cardiovascular Rhythm: regular Heart Sounds: Present: S1 & S2. Absent: gallop, rub - Extremities Extremities: no ischemia, No edema, Full ROM - Abdominal General gastrointestinal: soft, non-tender, non-distended, normal bowel sounds - Integumentary Integumentary: Present: clear, warm, dry - Neurologic Neurologic: CNII-XII intact, moves all extremities Results - Labs CBC & Chem 7: 02/12/19 04:19 02/12/19 04:19 Labs: Laboratory Last Values WBC 16.8 K/mm3 (4.5-11.0) H 02/12/19 04:19 RBC 3.44 M/mm3 (3.65-5.03) L 02/12/19 04:19 Hgb 9.6 gm/dl (10.1-14.3) L 02/12/19 04:19 Hct 30.2 % (30.3-42.9) L D 02/12/19 04:19 MCV 88 fl (79-97) 02/12/19 04:19 MCH 28 pg (28-32) 02/12/19 04:19 MCHC 32 % (30-34) 02/12/19 04:19 RDW 18.0 % (13.2-15.2) H 02/12/19 04:19 Plt Count 131 K/mm3 (140-440) L 02/12/19 04:19 Lymph % (Auto) 17.6 % (13.4-35.0) 02/03/19 18:06 [place] % (Auto) 10.1 % (0.0-7.3) H 02/03/19 18:06 Eos % (Auto) 0.1 % (0.0-4.3) 02/03/19 18:06 Baso % (Auto) 1.0 % (0.0-1.8) 02/03/19 18:06 Lymph # 1.1 K/mm3 (1.2-5.4) L 02/03/19 18:06 [place] # 0.6 K/mm3 (0.0-0.8) 02/03/19 18:06 Eos # 0.0 K/mm3 (0.0-0.4) 02/03/19 18:06 Baso # 0.1 K/mm3 (0.0-0.1) 02/03/19 18:06 Add Manual Diff Complete 02/07/19 05:27 Total Counted 100 02/07/19 05:27 Seg Neutrophils % Button Puncher 02/07/19 05:27 Seg Neuts % (Manual) 98.0 % (40.0-70.0) H 02/07/19 05:27 0 % 02/07/19 05:27 1.0 % (13.4-35.0) L 02/07/19 05:27 Reactive Lymphs % (Man) 0 % 02/07/19 05:27 1.0 % (0.0-7.3) 02/07/19 05:27 0 % (0.0-4.3) 02/07/19 05:27 0 % (0.0-1.8) 02/07/19 05:27 0 % 02/07/19 05:27 0 % 02/07/19 05:27 0 % 02/07/19 05:27 0 % 02/07/19 05:27 Nucleated RBC % Not Reportable 02/07/19 05:27 Seg Neutrophils # 4.5 K/mm3 (1.8-7.7) 02/03/19 18:06 Seg Neutrophils # Man 21.3 K/mm3 (1.8-7.7) H 02/07/19 05:27 Band Neutrophils # 0.0 K/mm3 02/07/19 05:27 0.2 K/mm3 (1.2-5.4) L 02/07/19 05:27 Abs React Lymphs (Man) 0.0 K/mm3 02/07/19 05:27 0.2 K/mm3 (0.0-0.8) 02/07/19 05:27 0.0 K/mm3 (0.0-0.4) 02/07/19 05:27 0.0 K/mm3 (0.0-0.1) 02/07/19 05:27 0.0 K/mm3 02/07/19 05:27 0.0 K/mm3 02/07/19 05:27 0.0 K/mm3 02/07/19 05:27 Blast Cells # 0.0 K/mm3 02/07/19 05:27 WBC Morphology Not Reportable 02/07/19 05:27 Hypersegmented Neuts Not Reportable 02/07/19 05:27 Hyposegmented Neuts Not Reportable 02/07/19 05:27 Hypogranular Neuts Not Reportable 02/07/19 05:27 Not Reportable 02/07/19 05:27 Not Reportable 02/07/19 05:27 Not Reportable 02/07/19 05:27 Not Reportable 02/07/19 05:27 Not Reportable 02/07/19 05:27 Not Reportable 02/07/19 05:27 Consistent w auto 02/07/19 05:27 Not Reportable 02/07/19 05:27 Plt Clumps, EDTA Not Reportable 02/07/19 05:27 Not Reportable 02/07/19 05:27 Not Reportable 02/07/19 05:27 Not Reportable 02/07/19 05:27 Plt Morphology Comment Not Reportable 02/07/19 05:27 RBC Morphology Not Reportable 02/07/19 05:27 Dimorphic RBCs Not Reportable 02/07/19 05:27 Not Reportable 02/07/19 05:27 Not Reportable 02/07/19 05:27 Few 02/07/19 05:27 Few 02/07/19 05:27 Not Reportable 02/07/19 05:27 Not Reportable 02/07/19 05:27 Not Reportable 02/07/19 05:27 Not Reportable 02/07/19 05:27 Not Reportable 02/07/19 05:27 Not Reportable 02/07/19 05:27 Not Reportable 02/07/19 05:27 Not Reportable 02/07/19 05:27 Not Reportable 02/07/19 05:27 Not Reportable 02/07/19 05:27 Not Reportable 02/07/19 05:27 Not Reportable 02/07/19 05:27 Not Reportable 02/07/19 05:27 Not Reportable 02/07/19 05:27 Not Reportable 02/07/19 05:27 Acanthocytes (Spur) Not Reportable 02/07/19 05:27 Rouleaux Not Reportable 02/07/19 05:27 Not Reportable 02/07/19 05:27 Not Reportable 02/07/19 05:27 Not Reportable 02/07/19 05:27 Not Reportable 02/07/19 05:27 Hem Pathologist Commnt No 02/07/19 05:27 PT 19.3 Sec. (12.2-14.9) H 02/03/19 19:24 INR 1.52 (0.87-1.13) H 02/03/19 19:24 APTT 30.3 Sec. (24.2-36.6) 02/03/19 19:24 POC ABG pH 7.466 (7.35-7.45) H 02/12/19 05:44 POC ABG pCO2 33.5 (35-45) L 02/12/19 05:44 POC ABG pO2 118 (80-105) H 02/12/19 05:44 POC ABG HCO3 24.1 (22-26 mml/L) 02/12/19 05:44 POC ABG Total CO2 25 (23-27mmol/L) 02/12/19 05:44 POC ABG O2 Sat 99 02/12/19 05:44 POC ABG Base Excess 0 ((-2) - (+3)mmol/L) 02/12/19 05:44 30 % 02/12/19 05:44 Sodium 147 mmol/L (137-145) H 02/12/19 04:19 Potassium 4.6 mmol/L (3.6-5.0) 02/12/19 04:19 Chloride 114.7 mmol/L (98-107) H 02/12/19 04:19 Carbon Dioxide 23 mmol/L (22-30) 02/12/19 04:19 14 mmol/L 02/12/19 04:19 BUN 17 mg/dL (7-17) 02/12/19 04:19 0.5 mg/dL (0.7-1.2) L 02/12/19 04:19 Estimated GFR > 60 ml/min 02/12/19 04:19 34 % 02/12/19 04:19 Glucose 152 mg/dL (65-100) H 02/12/19 04:19 POC Glucose 147 (70-105) H 02/12/19 11:54 Lactic Acid 1.70 mmol/L (0.7-2.0) 02/05/19 04:41 Calcium 8.6 mg/dL (8.4-10.2) 02/12/19 04:19 Phosphorus 4.00 mg/dL (2.5-4.5) 02/10/19 04:59 Magnesium 2.00 mg/dL (1.7-2.3) 02/10/19 04:59 0.30 mg/dL (0.1-1.2) 02/03/19 18:08 AST 35 units/L (5-40) 02/03/19 18:08 ALT 27 units/L (7-56) 02/03/19 18:08 117 units/L (35-129) 02/03/19 18:08 0.058 ng/mL (0.00-0.029) H D 02/08/19 18:52 9.30 mg/dL (0.00-1.30) H 02/04/19 17:07 NT-Pro-B Natriuret Pep 9160 pg/mL (0-900) H 02/03/19 18:06 5.1 g/dL (6.3-8.2) L 02/03/19 18:08 2.8 g/dL (3.9-5) L 02/03/19 18:08 1.2 % 02/03/19 18:08 Triglycerides 164 mg/dL (2-149) H 02/03/19 18:08 Cholesterol 125 mg/dL (50-199) 02/03/19 18:08 75 mg/dL (50-130) 02/03/19 18:08 31 mg/dL (40-59) L 02/03/19 18:08 4.03 % 02/03/19 18:08 Yellow (Yellow) 02/03/19 02:57 Clear (Clear) 02/03/19 02:57 6.0 (5.0-7.0) 02/03/19 02:57 Ur Specific [place] 1.011 (1.003-1.030) 02/03/19 02:57 <15 mg/dl mg/dL (Negative) 02/03/19 02:57 Neg mg/dL (Negative) 02/03/19 02:57 Neg mg/dL (Negative) 02/03/19 02:57 Neg (Negative) 02/03/19 02:57 Neg (Negative) 02/03/19 02:57 Neg (Negative) 02/03/19 02:57 < 2.0 mg/dL (<2.0) 02/03/19 02:57 Ur Leukocyte Esterase Neg (Negative) 02/03/19 02:57 7.0 /HPF (0.0-6.0) H 02/03/19 02:57 8.0 /HPF (0.0-6.0) 02/03/19 02:57 U Epithel Cells (Auto) 1.0 /HPF (0-13.0) 02/03/19 02:57 2+ /HPF (Negative) 02/03/19 02:57 Hyaline Casts 22 /LPF 02/03/19 02:57 3+ /HPF 02/03/19 02:57 Blood Type A POSITIVE 02/03/19 18:06 Antibody Screen Negative 02/03/19 18:06 Crossmatch See Detail 02/03/19 18:06 Active Medications - Current Medications Current Medications: Generic Name Dose Route Start Last Admin Trade Name Freq PRN Reason Stop Dose Admin Albuterol/Ipratropium 1 ampul 02/04/19 02:00 02/12/19 08:25 Duoneb *Not For Prn Use* IH 1 ampul Q6HRT JOEL Administration Lipase/Protease/Amylase 1 each 02/08/19 16:37 Pancreaze 10,500 Unit FEEDTUBE PRN PRN For Clogged Feeding Tube Arformoterol Tartrate 15 mcg 02/04/19 14:15 02/12/19 08:25 Brovana Nebu IH 15 mcg Q12HRT JOEL Administration Budesonide 0.5 mg 02/04/19 20:00 02/12/19 08:25 Pulmicort IH 0.5 mg Q12HRT JOEL Administration Hydrophilic Ointment 1 applic 02/06/19 10:50 Vaseline Lip Therapy TP Q2HR PRN Dry Lips Potassium Chloride/Dextrose/Sod Cl 20 meq in 1,000 mls @ 50 mls/hr 02/09/19 19:00 02/12/19 08:57 D5w/Ns W/Kcl 20meq IV 50 mls/hr DIRECT JOEL Infusion Cefazolin Sodium 2 gm/ Sodium 100 mls @ 200 mls/hr 02/11/19 18:00 02/12/19 09:33 Chloride IV 200 mls/hr Q8H JOEL Administration Protocol Metronidazole 500 mg in 100 mls @ 100 mls/hr 02/11/19 17:00 02/12/19 08:23 Flagyl 500 Mg/100 Ml IV 100 mls/hr Q8H JOEL Administration Protocol Methylprednisolone Sodium Succinate 40 mg 02/04/19 15:00 02/12/19 09:35 Solu-Medrol IV 02/12/19 23:59 40 mg Q12HR JOEL Administration Methylprednisolone Sodium Succinate 20 mg 02/13/19 10:00 Solu-Medrol IV 02/13/19 22:01 Q12HR JOEL Methylprednisolone Sodium Succinate 20 mg 02/14/19 10:00 Solu-Medrol IV 02/16/19 10:01 DAILY JOEL Morphine Sulfate 1 mg 02/12/19 14:00 Morphine IV Q4H PRN Pain, Moderate (4-6) Multi-Ingred Cream/Lotion/Oil/Oint 1 applic 02/06/19 10:50 Artificial Tears Ophth Oint OU Q4HR PRN Dry Eye(s) Ondansetron HCl 4 mg 02/03/19 20:27 02/09/19 16:37 Zofran IV 4 mg Q8H PRN Administration Nausea And Vomiting Pantoprazole Sodium 40 mg 02/09/19 19:00 02/12/19 09:35 Protonix IV 40 mg QDAY JOEL Administration Simple Syrup 15 ml 02/08/19 16:37 Simple Syrup FEEDTUBE PRN PRN Hypoglycemia Simple Syrup 30 ml 02/08/19 16:37 Simple Syrup FEEDTUBE PRN PRN Hypoglycemia Sodium Bicarbonate 325 mg 02/08/19 16:37 Sodium Bicarbonate FEEDTUBE PRN PRN For Clogged Feeding Tube Sodium Chloride 10 ml 02/03/19 22:00 02/12/19 09:35 Sodium Chloride Flush Syringe 10 Ml IV 10 ml BID JOEL Administration Sodium Chloride 10 ml 02/03/19 20:27 Sodium Chloride Flush Syringe 10 Ml IV PRN PRN LINE FLUSH Nutrition/Malnutrition Assess - Dietary Evaluation Nutrition/Malnutrition Findings: Nutrition Notes Start: 02/04/19 14: 37 Freq: Status: Active Protocol: Document 02/11/19 16:21 LARS (Rec: 02/11/19 16:26 LARS [email or web address]) Nutrition Notes Initial or Follow up Reassessment Current Diagnosis Heart Failure,Respiratory Failure Other Pertinent Diagnosis AMS Current Diet TF - Glucerna 1.2 at 45ml/hr Labs/Tests Na 148 BUN 23 BG 195 Pertinent Medications Protonix, D5 NS + 20mEq KCl at 100ml/hr Height 5 ft 3 in Weight 36.2 kg [place] Body Weight (kg) 52.27 BMI 14.1 Subjective/Other Information Pt remains on vent support. Emesis reported on 02/09; SBO present. NGT placed to LIS; TF stopped. Burn Absent Trauma Absent #1 Nutrition Diagnosis Inadequate oral intake Diagnosis Progress(for reassessment Continues documentation) Is patient on ventilator? Yes Is Patient Ambulatory and/or Out of Bed No REE-([facility]-confined to bed) 1027.632 Kcal/Kg value to use for calculation 40 Approximate Energy Requirements Using 1448 kcal/Kg Calculation Used for Recommendations Kcal/kg Additional Notes Pro needs 1.2-2g/k-72g/ day Fluid needs 1ml/kcal Nutrition Intervention Nutrition Support: Resume TF when medically feasible Goal #1 Resume TF to meet nutrient needs Follow-Up By: 02/14/19 Additional Comments F/U: TF restart, vent status ( Day 5 NPO)
--- NOTE | 2019-02-12 18:40 | Progress Note ---
Assessment and Plan 1. Hypernatremia: High sodium is likely from diuretics. Will change IV fluids to 1/2 NS. Monitor Sodium level. 2. FEN: On IV fluids. Monitor lytes. 3. Respiratory failure: S/p extubated. 4. Bowel obstruction: S/p exploratory laparotomy and right hemicolectomy. Followed by Gen. Surgery. 5. Leukocytosis. Subjective Date of service: 02/12/19 Principal diagnosis: Ac hypoxemic Resp failure; Severe Anemia; AE-COPD; G.I. Bleed; Septic Shock Interval history: Patient was seen and examined at the bedside. at the bedside. Objective - Vital Signs Vital signs: Vital Signs - 12hr 02/12/19 02/12/19 02/12/19 07:00 08:00 08:18 Temperature 99.7 F H Pulse Rate 86 85 93 H Pulse Rate [ Anterior Bilateral Throughout] Pulse Rate [ 96 H From Monitor] Respiratory 15 15 11 L Rate Respiratory Rate [Anterior Bilateral Throughout] Blood Pressure 105/64 102/62 103/62 O2 Sat by Pulse 100 99 Oximetry 02/12/19 02/12/19 02/12/19 08:26 09:00 09:07 Temperature Pulse Rate 90 Pulse Rate [ 91 H 91 H Anterior Bilateral Throughout] Pulse Rate [ From Monitor] Respiratory 11 L Rate Respiratory 10 L 15 Rate [Anterior Bilateral Throughout] Blood Pressure 113/71 O2 Sat by Pulse Oximetry 02/12/19 02/12/19 02/12/19 10:00 11:00 11:46 Temperature Pulse Rate 99 H 98 H 96 H Pulse Rate [ Anterior Bilateral Throughout] Pulse Rate [ From Monitor] Respiratory 13 16 17 Rate Respiratory Rate [Anterior Bilateral Throughout] Blood Pressure 124/70 123/81 133/79 O2 Sat by Pulse 98 99 98 Oximetry 02/12/19 02/12/19 02/12/19 12:00 13:00 14:00 Temperature 99.1 F Pulse Rate 99 H 100 H 98 H Pulse Rate [ Anterior Bilateral Throughout] Pulse Rate [ 94 H From Monitor] Respiratory 17 18 18 Rate Respiratory Rate [Anterior Bilateral Throughout] Blood Pressure 127/84 131/80 142/85 O2 Sat by Pulse 99 98 99 Oximetry 02/12/19 02/12/19 02/12/19 14:52 15:00 16:00 Temperature 98.4 F Pulse Rate 93 H 104 H Pulse Rate [ 97 H Anterior Bilateral Throughout] Pulse Rate [ 91 H From Monitor] Respiratory 18 17 Rate Respiratory 19 Rate [Anterior Bilateral Throughout] Blood Pressure 127/77 141/83 O2 Sat by Pulse 99 100 Oximetry 02/12/19 02/12/19 17:00 18:00 Temperature Pulse Rate 96 H 96 H Pulse Rate [ Anterior Bilateral Throughout] Pulse Rate [ From Monitor] Respiratory 18 15 Rate Respiratory Rate [Anterior Bilateral Throughout] Blood Pressure 139/82 143/86 O2 Sat by Pulse 99 100 Oximetry - General Appearance General appearance: well-developed, appears stated age, other (no distress, NG tube noted, on restrains) EENT: ATNC, PERRL, hearing intact Neck: supple Respiratory: Present: Clear to Ascultation Cardiology: regular, S1S2, no murmurs Gastrointestinal: no tenderness, other (dressing noted, BS heard) Integumentary: no rash Neurologic: other (not following any command) Musculoskeletal: other (no edema) - Lab 02/12/19 04:19 02/12/19 04:19 Most recent lab results Calcium 8.6 mg/dL (8.4-10.2) 02/12/19 04:19 Phosphorus 4.00 mg/dL (2.5-4.5) 02/10/19 04:59 Magnesium 2.00 mg/dL (1.7-2.3) 02/10/19 04:59 Medications & Allergies - Medications Allergies/Adverse Reactions: Allergies No Known Allergies Allergy (Unverified 02/03/19 18:28) Home Medications: Home Medications Medication Instructions Recorded Confirmed Last Taken Type No Known Home Medications [No 02/07/19 02/07/19 Unknown History Reported Home Medications] Active Medications: Generic Name Dose Route Start Last Admin Trade Name Freq PRN Reason Stop Dose Admin Albuterol/Ipratropium 1 ampul 02/04/19 02:00 02/12/19 14:52 Duoneb *Not For Prn Use* IH 1 ampul Q6HRT JOEL Administration Lipase/Protease/Amylase 1 each 02/08/19 16:37 Juan Smith 10,500 Unit FEEDTUBE PRN PRN For Clogged Feeding Tube Arformoterol Tartrate 15 mcg 02/04/19 14:15 02/12/19 08:25 Brovana Moisés IH 15 mcg Q12HRT JOEL Administration Budesonide 0.5 mg 02/04/19 20:00 02/12/19 08:25 Pulmicort IH 0.5 mg Q12HRT JOEL Administration Hydrophilic Ointment 1 applic 02/06/19 10:50 Vaseline Lip Therapy TP Q2HR PRN Dry Lips Cefazolin Sodium 2 gm/ Sodium 100 mls @ 200 mls/hr 02/11/19 18:00 02/12/19 18:15 Chloride IV 200 mls/hr Q8H JOEL Administration Protocol Metronidazole 500 mg in 100 mls @ 100 mls/hr 02/11/19 17:00 02/12/19 16:50 Flagyl 500 Mg/100 Ml IV 100 mls/hr Q8H JOEL Administration Protocol Potassium Chloride/Dextrose/Sod Cl 20 meq in 1,000 mls @ 60 mls/hr 02/12/19 19:00 D5w/0.45% Nacl/Kcl 20 Meq IV DIRECT JOEL Methylprednisolone Sodium Succinate 40 mg 02/04/19 15:00 02/12/19 09:35 Solu-Medrol IV 02/12/19 23:59 40 mg Q12HR JOEL Administration Methylprednisolone Sodium Succinate 20 mg 02/13/19 10:00 Solu-Medrol IV 02/13/19 22:01 Q12HR JOEL Methylprednisolone Sodium Succinate 20 mg 02/14/19 10:00 Solu-Medrol IV 02/16/19 10:01 DAILY JOEL Morphine Sulfate 1 mg 02/12/19 14:00 02/12/19 15:35 Morphine IV 1 mg Q4H PRN Administration Pain, Moderate (4-6) Multi-Ingred Cream/Lotion/Oil/Oint 1 applic 02/06/19 10:50 Artificial Tears Ophth Oint OU Q4HR PRN Dry Eye(s) Ondansetron HCl 4 mg 02/03/19 20:27 02/09/19 16:37 Zofran IV 4 mg Q8H PRN Administration Nausea And Vomiting Pantoprazole Sodium 40 mg 02/09/19 19:00 02/12/19 09:35 Protonix IV 40 mg QDAY JOEL Administration Simple Syrup 15 ml 02/08/19 16:37 Simple Syrup FEEDTUBE PRN PRN Hypoglycemia Simple Syrup 30 ml 02/08/19 16:37 Simple Syrup FEEDTUBE PRN PRN Hypoglycemia Sodium Bicarbonate 325 mg 02/08/19 16:37 Sodium Bicarbonate FEEDTUBE PRN PRN For Clogged Feeding Tube Sodium Chloride 10 ml 02/03/19 22:00 02/12/19 09:35 Sodium Chloride Flush Syringe 10 Ml IV 10 ml BID JOEL Administration Sodium Chloride 10 ml 02/03/19 20:27 Sodium Chloride Flush Syringe 10 Ml IV PRN PRN LINE FLUSH
[2019-02-12] MEDS: D5W/0.45% NACL/KCL 20 MEQ 20 MEQ/1,000 ML BAG IV SCH (19:28)
[2019-02-13] MEDS: FLAGYL 500 MG/100 ML 500 MG/100 ML BAG IV SCH ×2 (00:25→09:47)
[2019-02-13] MEDS: ceFAZolin 2 GM in NACL 0.9% 100 ML IV SCH ×2 (01:54→09:47)
[2019-02-13] MEDS: DUONEB *Not for PRN Use IH SCH ×4 (02:18→19:56)
--- NOTE | 2019-02-13 02:58 | XRay Report ---
PROCEDURE: XR CHEST 1V AP TECHNIQUE: Chest radiograph single view. HISTORY: follow up respiratory failure COMPARISONS: 02/12/2019 FINDINGS: Heart: Normal. Mediastinum/Vessels: Normal. Lungs/Pleural space: There is stable mild interstitial prominence both lungs. There are no localized infiltrates or effusions.. Bony thorax: No acute osseous abnormality. Life support devices: The patient has been extubated since the prior study. The NG tube is in good po sition the stomach.. IMPRESSION: Stable interstitial changes in both lungs. No localized infiltrates. Interval extubation .. This document is electronically signed by Emigdio Anand MD., Feb 13 2019 02:56:16 AM ET
[2019-02-13 05:08] LABS: Hematocrit 28.7 % (30.3-42.9); Hemoglobin 9.1 gm/dl (10.1-14.3); Mean Corpuscular HGB Conc 32 % (30-34); Mean Corpuscular Volume 88 fl (79-97); Platelet Count 177 K/mm3 (140-440); Red Blood Count 3.24 M/mm3 (3.65-5.03); Red Cell Distribution Width 18.5 % (13.2-15.2)
[2019-02-13 05:21] LABS: BUN/Creatinine Ratio 40; Blood Urea Nitrogen 16 mg/dL (7-17); Calcium 9.6 mg/dL (8.4-10.2); Hemolysis Index 8
[2019-02-13 06:36] LABS: Basophils % (Manual) 0 % (0.0-1.8); Eosinophils % (Manual) 0 % (0.0-4.3); Total Cells Counted 100
[2019-02-13 06:37] LABS: Anisocytosis 1+; Platelet Estimate Consistent w Auto; Toxic Granulation 1+
[2019-02-13] MEDS: PULMICORT IH SCH ×2 (07:55→19:56)
[2019-02-13] MEDS: BROVANA NEBU IH SCH ×2 (07:55→19:56)
--- NOTE | 2019-02-13 09:06 | Progress Note ---
Assessment and Plan s/p exploratory laparotomy, right hemicolectomy POD1, for cecal volvulus and large bowel obstruction Severe Sepsis with Shock, resolved Acute hypoxemic respiratory failure, extubated Symptomatic anemia with positive stool guaiac. Acute chronic obstructive pulmonary disease exacerbation. Possible acute gastrointestinal bleed. Acute congestive heart failure exacerbation. Hypokalemia, resolved Elevated serum troponin. Adult failure to thrive Thrombocytopenia -Incentive spirometry -Supplemental oxygen to keep O2 sats>90% -PT/OT to increase activity -Continue steroid taper -Pain management -Steroid taper in view of heart failure -Avoid nephrotoxic agents, adjust all medications for CrCL -Strict intake and output monitoring -Stress ulcer prophylaxis -VTE prophylaxis -Accuchecks with glycemic control. Target glucose of 140-180 mg/dL -Bronchodilators with pulmonary hygiene per RT -Maintenance of sleep -wake cycle -Influenza and pneumonia vaccination per protocol -Discuss with General Surgery re trickle feeding -Swallow evaluation PROGNOSIS: GUARDED CONDITION: IMPROVING CODE STATUS: FULL CODE Updated at the bedside. Discussed and updated him re his 's care plan. Answered all his questions and addressed his concerns Subjective Date of service: 02/13/19 Principal diagnosis: Ac hypoxemic Resp failure; Severe Anemia; AE-COPD; G.I. Bleed; Septic Shock Interval history: Patient is seen today for: Acute hypoxemic Resp failure; Symptomatic anemia; AE- COPD; G.I. Bleed; Acute congestive heart failure exacerbation; Hypotension; SIRS Seen and examined at bedside; 24-hour events reviewed; nursing and respiratory care staff consulted; no adverse overnight events reported to me;No reported fevers, no chills,awake , alert and obeying commands. s/p exploratory laparotomy, right hemicolectomy POD2, for cecal volvulus and large bowel obstruction Extubated Vitals, labs, medications, chart and imaging reviewed. Objective Vital Signs - 12hr 02/12/19 02/12/19 02/12/19 21:01 21:23 21:38 Temperature Pulse Rate 101 H Pulse Rate [ 96 H 98 H Anterior Bilateral Throughout] Pulse Rate [ From Monitor] Respiratory 28 H Rate Respiratory 24 24 Rate [Anterior Bilateral Throughout] Blood Pressure 136/78 O2 Sat by Pulse 82 L Oximetry 02/12/19 02/12/19 02/12/19 22:00 22:21 23:00 Temperature Pulse Rate 105 H 102 H Pulse Rate [ Anterior Bilateral Throughout] Pulse Rate [ From Monitor] Respiratory 26 H 25 H Rate Respiratory Rate [Anterior Bilateral Throughout] Blood Pressure 137/84 128/80 O2 Sat by Pulse 94 94 95 Oximetry 02/12/19 02/13/19 02/13/19 23:47 00:00 01:01 Temperature 98.7 F Pulse Rate 105 H 96 H 99 H Pulse Rate [ Anterior Bilateral Throughout] Pulse Rate [ 101 H From Monitor] Respiratory 29 H 25 H 25 H Rate Respiratory Rate [Anterior Bilateral Throughout] Blood Pressure 139/86 135/79 125/80 O2 Sat by Pulse 95 96 96 Oximetry 02/13/19 02/13/19 02/13/19 02:00 02:18 02:33 Temperature Pulse Rate 98 H Pulse Rate [ 96 H 98 H Anterior Bilateral Throughout] Pulse Rate [ From Monitor] Respiratory 24 Rate Respiratory 23 23 Rate [Anterior Bilateral Throughout] Blood Pressure 133/79 O2 Sat by Pulse 96 Oximetry 02/13/19 02/13/19 02/13/19 03:01 04:00 05:00 Temperature 98.8 F Pulse Rate 107 H 96 H 87 Pulse Rate [ Anterior Bilateral Throughout] Pulse Rate [ 93 H From Monitor] Respiratory 19 21 17 Rate Respiratory Rate [Anterior Bilateral Throughout] Blood Pressure 128/79 125/79 134/73 O2 Sat by Pulse 99 98 Oximetry 02/13/19 02/13/19 02/13/19 06:00 07:00 07:30 Temperature 97.6 F Pulse Rate 92 H 87 Pulse Rate [ Anterior Bilateral Throughout] Pulse Rate [ From Monitor] Respiratory 24 22 Rate Respiratory Rate [Anterior Bilateral Throughout] Blood Pressure 137/87 132/80 O2 Sat by Pulse 98 92 Oximetry 02/13/19 07:56 Temperature Pulse Rate Pulse Rate [ 89 Anterior Bilateral Throughout] Pulse Rate [ From Monitor] Respiratory Rate Respiratory 18 Rate [Anterior Bilateral Throughout] Blood Pressure O2 Sat by Pulse 95 Oximetry Constitutional: appears uncomfortable, other (elderly looking petite CF normocephalicin no distress, chronically ill looking, cachexia) Eyes: non-icteric ENT: oropharynx dry Neck: supple, no lymphadenopathy, JVD Effort: normal Ascultation: Bilateral: diminished breath sounds, rales, rhonchi, other (occassional accessory muscle use) Percussion: Bilateral: not dull Cardiovascular: irregular rhythm, other (S1,S2, ) Gastrointestinal: hypoactive bowel sounds, soft, non-tender, non-distended, other (Clean and dry wound dressing) Integumentary: normal Extremities: no cyanosis, pink and warm, pulses normal, no ischemia or petechiae Neurologic: non-focal exam (grossly), pupils equal and round, CN II-XII normal Psychiatric: anxious CBC and BMP: 02/13/19 04:33 02/13/19 04:33 ABG, PT/INR, D-dimer: ABG POC ABG pH 7.466 (7.35-7.45) H 02/12/19 05:44 POC ABG pCO2 33.5 (35-45) L 02/12/19 05:44 POC ABG pO2 118 (80-105) H 02/12/19 05:44 POC ABG HCO3 24.1 (22-26 mml/L) 02/12/19 05:44 POC ABG Total CO2 25 (23-27mmol/L) 02/12/19 05:44 POC ABG O2 Sat 99 02/12/19 05:44 PT/INR, D-dimer PT 19.3 Sec. (12.2-14.9) H 02/03/19 19:24 INR 1.52 (0.87-1.13) H 02/03/19 19:24 Abnormal lab findings: Abnormal Labs 02/03/19 02/03/19 02/03/19 02:57 18:06 18:06 WBC RBC 0.88 L Hgb 1.9 L* Hct 7.1 L* MCH 22 L MCHC 27 L RDW 23.3 H Plt Count 489 H [place] % (Auto) 10.1 H Lymph # 1.1 L Seg Neutrophils % 71.2 H Seg Neuts % (Manual) Lymphocytes % (Manual) Seg Neutrophils # Man Lymphocytes # (Manual) PT INR POC ABG pH POC ABG pCO2 POC ABG pO2 Sodium Potassium Chloride Carbon Dioxide BUN Creatinine Glucose POC Glucose Lactic Acid Calcium Phosphorus Troponin T C-Reactive Protein NT-Pro-B Natriuret Pep 9160 H Total Protein Albumin Triglycerides HDL Cholesterol Urine WBC (Auto) 7.0 H Crossmatch 02/03/19 02/03/19 02/03/19 18:06 18:08 18:08 WBC RBC Hgb Hct MCH MCHC RDW Plt Count [place] % (Auto) Lymph # Seg Neutrophils % Seg Neuts % (Manual) Lymphocytes % (Manual) Seg Neutrophils # Man Lymphocytes # (Manual) PT INR POC ABG pH POC ABG pCO2 POC ABG pO2 Sodium Potassium 3.3 L Chloride Carbon Dioxide 17 L BUN Creatinine Glucose POC Glucose Lactic Acid 9.90 H* Calcium 7.9 L Phosphorus Troponin T 0.134 H* C-Reactive Protein NT-Pro-B Natriuret Pep Total Protein 5.1 L Albumin 2.8 L Triglycerides 164 H HDL Cholesterol 31 L Urine WBC (Auto) Crossmatch See Detail 02/03/19 02/03/19 02/03/19 19:24 19:24 19:24 WBC RBC Hgb Hct MCH MCHC RDW Plt Count [place] % (Auto) Lymph # Seg Neutrophils % Seg Neuts % (Manual) Lymphocytes % (Manual) Seg Neutrophils # Man Lymphocytes # (Manual) PT 19.3 H INR 1.52 H POC ABG pH POC ABG pCO2 POC ABG pO2 Sodium Potassium Chloride Carbon Dioxide BUN Creatinine Glucose POC Glucose Lactic Acid 6.30 H* Calcium Phosphorus Troponin T 0.139 H* C-Reactive Protein NT-Pro-B Natriuret Pep Total Protein Albumin Triglycerides HDL Cholesterol Urine WBC (Auto) Crossmatch 02/03/19 02/03/19 02/04/19 20:30 23:36 01:18 WBC RBC Hgb Hct MCH MCHC RDW Plt Count [place] % (Auto) Lymph # Seg Neutrophils % Seg Neuts % (Manual) Lymphocytes % (Manual) Seg Neutrophils # Man Lymphocytes # (Manual) PT INR POC ABG pH 7.515 H POC ABG pCO2 POC ABG pO2 121 H Sodium Potassium Chloride Carbon Dioxide BUN Creatinine Glucose POC Glucose Lactic Acid 6.50 H* 5.70 H* Calcium Phosphorus Troponin T C-Reactive Protein NT-Pro-B Natriuret Pep Total Protein Albumin Triglycerides HDL Cholesterol Urine WBC (Auto) Crossmatch 02/04/19 02/04/19 02/04/19 04:35 04:35 04:35 WBC 17.5 H RBC Hgb Hct MCH 27 L MCHC RDW 15.9 H Plt Count [place] % (Auto) Lymph # Seg Neutrophils % Seg Neuts % (Manual) 96.0 H Lymphocytes % (Manual) 1.0 L Seg Neutrophils # Man 16.8 H Lymphocytes # (Manual) 0.2 L PT INR POC ABG pH POC ABG pCO2 POC ABG pO2 Sodium 147 H Potassium 3.2 L Chloride Carbon Dioxide 21 L BUN Creatinine Glucose 170 H POC Glucose Lactic Acid 3.60 H* Calcium 7.9 L Phosphorus Troponin T C-Reactive Protein NT-Pro-B Natriuret Pep Total Protein Albumin Triglycerides HDL Cholesterol Urine WBC (Auto) Crossmatch 02/04/19 02/04/19 02/04/19 10:59 17:07 17:07 WBC RBC Hgb Hct MCH MCHC RDW Plt Count [place] % (Auto) Lymph # Seg Neutrophils % Seg Neuts % (Manual) Lymphocytes % (Manual) Seg Neutrophils # Man Lymphocytes # (Manual) PT INR POC ABG pH POC ABG pCO2 POC ABG pO2 Sodium Potassium 3.1 L Chloride Carbon Dioxide BUN Creatinine Glucose POC Glucose Lactic Acid 2.30 H* Calcium Phosphorus Troponin T C-Reactive Protein 9.30 H NT-Pro-B Natriuret Pep Total Protein Albumin Triglycerides HDL Cholesterol Urine WBC (Auto) Crossmatch 02/04/19 02/04/19 02/05/19 17:15 21:04 00:05 WBC RBC Hgb Hct MCH MCHC RDW Plt Count [place] % (Auto) Lymph # Seg Neutrophils % Seg Neuts % (Manual) Lymphocytes % (Manual) Seg Neutrophils # Man Lymphocytes # (Manual) PT INR POC ABG pH 7.310 L POC ABG pCO2 POC ABG pO2 68 L Sodium Potassium Chloride Carbon Dioxide BUN Creatinine Glucose POC Glucose Lactic Acid 2.40 H* 2.70 H* Calcium Phosphorus Troponin T C-Reactive Protein NT-Pro-B Natriuret Pep Total Protein Albumin Triglycerides HDL Cholesterol Urine WBC (Auto) Crossmatch 02/05/19 02/05/19 02/05/19 04:41 04:41 12:54 WBC 15.1 H RBC Hgb Hct MCH MCHC RDW 16.6 H Plt Count [place] % (Auto) Lymph # Seg Neutrophils % Seg Neuts % (Manual) 90.0 H Lymphocytes % (Manual) 2.0 L Seg Neutrophils # Man 13.6 H Lymphocytes # (Manual) 0.3 L PT INR POC ABG pH POC ABG pCO2 POC ABG pO2 74 L Sodium 147 H Potassium Chloride 114.1 H Carbon Dioxide 20 L BUN 19 H Creatinine Glucose 192 H POC Glucose Lactic Acid Calcium 7.4 L Phosphorus Troponin T C-Reactive Protein NT-Pro-B Natriuret Pep Total Protein Albumin Triglycerides HDL Cholesterol Urine WBC (Auto) Crossmatch 02/06/19 02/06/19 02/06/19 01:46 11:42 11:42 WBC 21.1 H RBC Hgb Hct MCH MCHC RDW 17.0 H Plt Count [place] % (Auto) Lymph # Seg Neutrophils % Seg Neuts % (Manual) Lymphocytes % (Manual) Seg Neutrophils # Man Lymphocytes # (Manual) PT INR POC ABG pH POC ABG pCO2 34.4 L POC ABG pO2 56 L Sodium 151 H Potassium Chloride 112.1 H Carbon Dioxide BUN Creatinine Glucose 187 H POC Glucose Lactic Acid Calcium 8.1 L Phosphorus Troponin T C-Reactive Protein NT-Pro-B Natriuret Pep Total Protein Albumin Triglycerides HDL Cholesterol Urine WBC (Auto) Crossmatch 02/06/19 02/07/19 02/07/19 12:04 04:26 05:27 WBC 21.7 H RBC Hgb Hct MCH MCHC RDW 17.6 H Plt Count [place] % (Auto) Lymph # Seg Neutrophils % Seg Neuts % (Manual) 98.0 H Lymphocytes % (Manual) 1.0 L Seg Neutrophils # Man 21.3 H Lymphocytes # (Manual) 0.2 L PT INR POC ABG pH 7.481 H POC ABG pCO2 31.3 L POC ABG pO2 63 L 50 L Sodium Potassium Chloride Carbon Dioxide BUN Creatinine Glucose POC Glucose Lactic Acid Calcium Phosphorus Troponin T C-Reactive Protein NT-Pro-B Natriuret Pep Total Protein Albumin Triglycerides HDL Cholesterol Urine WBC (Auto) Crossmatch 02/07/19 02/07/19 02/07/19 05:27 05:29 23:07 WBC RBC Hgb Hct MCH MCHC RDW Plt Count [place] % (Auto) Lymph # Seg Neutrophils % Seg Neuts % (Manual) Lymphocytes % (Manual) Seg Neutrophils # Man Lymphocytes # (Manual) PT INR POC ABG pH POC ABG pCO2 POC ABG pO2 Sodium 147 H Potassium Chloride 108.4 H Carbon Dioxide BUN Creatinine 0.6 L Glucose 184 H POC Glucose 188 H 172 H Lactic Acid Calcium 8.3 L Phosphorus 1.50 L Troponin T C-Reactive Protein NT-Pro-B Natriuret Pep Total Protein Albumin Triglycerides HDL Cholesterol Urine WBC (Auto) Crossmatch 02/08/19 02/08/19 02/08/19 04:26 04:26 11:50 WBC 18.8 H RBC Hgb Hct MCH MCHC RDW 17.7 H Plt Count [place] % (Auto) Lymph # Seg Neutrophils % Seg Neuts % (Manual) Lymphocytes % (Manual) Seg Neutrophils # Man Lymphocytes # (Manual) PT INR POC ABG pH POC ABG pCO2 POC ABG pO2 Sodium Potassium Chloride Carbon Dioxide BUN 19 H Creatinine 0.6 L Glucose 190 H POC Glucose 185 H Lactic Acid Calcium 8.2 L Phosphorus Troponin T C-Reactive Protein NT-Pro-B Natriuret Pep Total Protein Albumin Triglycerides HDL Cholesterol Urine WBC (Auto) Crossmatch 02/08/19 02/08/19 02/08/19 12:01 17:44 18:52 WBC RBC Hgb Hct MCH MCHC RDW Plt Count [place] % (Auto) Lymph # Seg Neutrophils % Seg Neuts % (Manual) Lymphocytes % (Manual) Seg Neutrophils # Man Lymphocytes # (Manual) PT INR POC ABG pH POC ABG pCO2 POC ABG pO2 Sodium Potassium Chloride Carbon Dioxide BUN Creatinine Glucose POC Glucose 186 H 143 H Lactic Acid Calcium Phosphorus Troponin T 0.058 H D C-Reactive Protein NT-Pro-B Natriuret Pep Total Protein Albumin Triglycerides HDL Cholesterol Urine WBC (Auto) Crossmatch 02/08/19 02/09/19 02/09/19 23:24 03:57 03:57 WBC 20.3 H RBC Hgb Hct MCH MCHC RDW 18.0 H Plt Count 92 L [place] % (Auto) Lymph # Seg Neutrophils % Seg Neuts % (Manual) Lymphocytes % (Manual) Seg Neutrophils # Man Lymphocytes # (Manual) PT INR POC ABG pH POC ABG pCO2 POC ABG pO2 Sodium Potassium Chloride Carbon Dioxide BUN 29 H Creatinine 0.5 L Glucose 172 H POC Glucose 205 H Lactic Acid Calcium Phosphorus Troponin T C-Reactive Protein NT-Pro-B Natriuret Pep Total Protein Albumin Triglycerides HDL Cholesterol Urine WBC (Auto) Crossmatch 02/09/19 02/09/19 02/09/19 04:49 12:11 17:27 WBC RBC Hgb Hct MCH MCHC RDW Plt Count [place] % (Auto) Lymph # Seg Neutrophils % Seg Neuts % (Manual) Lymphocytes % (Manual) Seg Neutrophils # Man Lymphocytes # (Manual) PT INR POC ABG pH 7.473 H POC ABG pCO2 POC ABG pO2 Sodium Potassium Chloride Carbon Dioxide BUN Creatinine Glucose POC Glucose 136 H 149 H Lactic Acid Calcium Phosphorus Troponin T C-Reactive Protein NT-Pro-B Natriuret Pep Total Protein Albumin Triglycerides HDL Cholesterol Urine WBC (Auto) Crossmatch 02/10/19 02/10/19 02/10/19 04:59 04:59 04:59 WBC 16.5 H RBC Hgb Hct MCH MCHC RDW 17.7 H Plt Count 94 L [place] % (Auto) Lymph # Seg Neutrophils % Seg Neuts % (Manual) Lymphocytes % (Manual) Seg Neutrophils # Man Lymphocytes # (Manual) PT INR POC ABG pH POC ABG pCO2 POC ABG pO2 Sodium Potassium Chloride Carbon Dioxide BUN 31 H 31 H Creatinine 0.6 L 0.6 L Glucose 149 H 152 H POC Glucose Lactic Acid Calcium Phosphorus Troponin T C-Reactive Protein NT-Pro-B Natriuret Pep Total Protein Albumin Triglycerides HDL Cholesterol Urine WBC (Auto) Crossmatch 02/10/19 02/11/19 02/11/19 05:10 00:06 10:26 WBC 16.4 H RBC Hgb Hct MCH MCHC RDW 18.3 H Plt Count 111 L [place] % (Auto) Lymph # Seg Neutrophils % Seg Neuts % (Manual) Lymphocytes % (Manual) Seg Neutrophils # Man Lymphocytes # (Manual) PT INR POC ABG pH 7.518 H 7.482 H POC ABG pCO2 POC ABG pO2 173 H 119 H Sodium Potassium Chloride Carbon Dioxide BUN Creatinine Glucose POC Glucose Lactic Acid Calcium Phosphorus Troponin T C-Reactive Protein NT-Pro-B Natriuret Pep Total Protein Albumin Triglycerides HDL Cholesterol Urine WBC (Auto) Crossmatch 02/11/19 02/12/19 02/12/19 10:26 04:19 04:19 WBC 16.8 H RBC 3.44 L Hgb 9.6 L Hct 30.2 L D MCH MCHC RDW 18.0 H Plt Count 131 L [place] % (Auto) Lymph # Seg Neutrophils % Seg Neuts % (Manual) Lymphocytes % (Manual) Seg Neutrophils # Man Lymphocytes # (Manual) PT INR POC ABG pH POC ABG pCO2 POC ABG pO2 Sodium 148 H 147 H Potassium Chloride 112.7 H 114.7 H Carbon Dioxide BUN 23 H Creatinine 0.5 L 0.5 L Glucose 195 H 152 H POC Glucose Lactic Acid Calcium Phosphorus Troponin T C-Reactive Protein NT-Pro-B Natriuret Pep Total Protein Albumin Triglycerides HDL Cholesterol Urine WBC (Auto) Crossmatch 0502/12/19 02/13/19 05:44 11:54 04:33 WBC 16.7 H RBC 3.24 L Hgb 9.1 L Hct 28.7 L MCH MCHC RDW 18.5 H Plt Count [place] % (Auto) Lymph # Seg Neutrophils % Seg Neuts % (Manual) 95.0 H Lymphocytes % (Manual) 3.0 L Seg Neutrophils # Man 15.9 H Lymphocytes # (Manual) 0.5 L PT INR POC ABG pH 7.466 H POC ABG pCO2 33.5 L POC ABG pO2 118 H Sodium Potassium Chloride Carbon Dioxide BUN Creatinine Glucose POC Glucose 147 H Lactic Acid Calcium Phosphorus Troponin T C-Reactive Protein NT-Pro-B Natriuret Pep Total Protein Albumin Triglycerides HDL Cholesterol Urine WBC (Auto) Crossmatch 02/13/19 04:33 WBC RBC Hgb Hct MCH MCHC RDW Plt Count [place] % (Auto) Lymph # Seg Neutrophils % Seg Neuts % (Manual) Lymphocytes % (Manual) Seg Neutrophils # Man Lymphocytes # (Manual) PT INR POC ABG pH POC ABG pCO2 POC ABG pO2 Sodium Potassium Chloride 113.7 H Carbon Dioxide BUN Creatinine 0.4 L Glucose 193 H POC Glucose Lactic Acid Calcium Phosphorus Troponin T C-Reactive Protein NT-Pro-B Natriuret Pep Total Protein Albumin Triglycerides HDL Cholesterol Urine WBC (Auto) Crossmatch Allied health notes reviewed: nursing
[2019-02-13] MEDS: PROTONIX IV SCH (09:45)
[2019-02-13] MEDS: SOLU-Medrol IV SCH ×2 (09:46→22:50)
[2019-02-13] MEDS: MORPHINE IV PRN (13:31)
[2019-02-13] MEDS: D5W/0.45% NACL/KCL 20 MEQ 20 MEQ/1,000 ML BAG IV SCH (13:38)
--- NOTE | 2019-02-13 14:06 | Progress Note ---
Assessment and Plan Assessment and plan: Severe Sepsis with Shock. Continue pressors to maintain MAP greater than 65. Follow-up blood cultures. Acute hypoxemic respiratory failure. Patient extubated and doing well. Symptomatic anemia with probable GIB. Monitor H&H closely and transfuse for hemoglobin less than 7. GI signed off. Continue PPI. Patient will need EGD when stable. Bowel obstruction. S/p exploratory laparotomy and right hemicolectomy. Followed by Gen. Surgery. Acute chronic obstructive pulmonary disease exacerbation. Continue steroid taper. Bronchodilators and nebulizer treatment. Pulmonary following. Acute congestive heart failure exacerbation. Strict intake and output monitoring Hypokalemia, resolved Elevated serum troponin. Etiology likely secondary to #1. ? Type II MA. Adult failure to thrive. PT/OT evaluation Thrombocytopenia Continuing to trend platelet counts. Check HIT panel History Interval history: Patient is about 71-year-old female with PMHx of CHF, COPD, who was brought to the ER by EMS after a fall at home, altered mental status, respiratory distress. Per EMS patient was found in severe respiratory distress, laying on the floor and covered in her feces. According to EMS the had asked a neighbor to call EMS because the patient fell on the floor and he was unable to pick her up. He states that she had been sick for a few days, she had trouble breathing, and he had been taking a lot of "goody powder" for pain. On arrival to the ER patient was lethargic, responded to name, her blood pressure was 80/54, the temperature was 97.1, respiration was 40 BPM, she had h&h of 1.9/7.1, GI was consulted and she was admitted for acute GI bleed, acute blood loss anemia, CHF (BNP was 9100) and COPD exacerbation. respiratory failure worsened, so was intubated. She was seen by GI Physician, put on Protonix iv, but EGD not done because unstable. Patient with vomiting vomiting and CT revealed poss bowel obstruction, surg consulted and evaluated her. 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 Patient was extubated on 02/04/19. Patient with NGT to [facility] Hospitalist Physical - Constitutional Vitals: Temp Pulse Resp BP Pulse Ox 97.2 F L 90 23 129/74 98 02/13/19 12:00 02/13/19 12:00 02/13/19 12:00 02/13/19 12:00 02/13/19 12:00 General appearance: Present: no acute distress, cachectic - EENT Eyes: Present: PERRL, EOM intact ENT: hearing intact, clear oral mucosa, dentition normal - Neck Neck: Present: supple, normal ROM - Respiratory Respiratory effort: normal Respiratory: bilateral: CTA - Cardiovascular Rhythm: regular Heart Sounds: Present: S1 & S2. Absent: gallop, rub - Extremities Extremities: no ischemia, No edema, Full ROM - Abdominal General gastrointestinal: soft, non-tender, non-distended, normal bowel sounds - Integumentary Integumentary: Present: clear, warm, dry - Neurologic Neurologic: CNII-XII intact, moves all extremities Results - Labs CBC & Chem 7: 02/13/19 04:33 02/13/19 04:33 Labs: Laboratory Last Values WBC 16.7 K/mm3 (4.5-11.0) H 02/13/19 04:33 RBC 3.24 M/mm3 (3.65-5.03) L 02/13/19 04:33 Hgb 9.1 gm/dl (10.1-14.3) L 02/13/19 04:33 Hct 28.7 % (30.3-42.9) L 02/13/19 04:33 MCV 88 fl (79-97) 02/13/19 04:33 MCH 28 pg (28-32) 02/13/19 04:33 MCHC 32 % (30-34) 02/13/19 04:33 RDW 18.5 % (13.2-15.2) H 02/13/19 04:33 Plt Count 177 K/mm3 (140-440) 02/13/19 04:33 Lymph % (Auto) 17.6 % (13.4-35.0) 02/03/19 18:06 [place] % (Auto) 10.1 % (0.0-7.3) H 02/03/19 18:06 Eos % (Auto) 0.1 % (0.0-4.3) 02/03/19 18:06 Baso % (Auto) 1.0 % (0.0-1.8) 02/03/19 18:06 Lymph # 1.1 K/mm3 (1.2-5.4) L 02/03/19 18:06 [place] # 0.6 K/mm3 (0.0-0.8) 02/03/19 18:06 Eos # 0.0 K/mm3 (0.0-0.4) 02/03/19 18:06 Baso # 0.1 K/mm3 (0.0-0.1) 02/03/19 18:06 Add Manual Diff Complete 02/13/19 04:33 Total Counted 100 02/13/19 04:33 Seg Neutrophils % Energy Efficiency Finance Manager 02/07/19 05:27 Seg Neuts % (Manual) 95.0 % (40.0-70.0) H 02/13/19 04:33 0 % 02/13/19 04:33 3.0 % (13.4-35.0) L 02/13/19 04:33 Reactive Lymphs % (Man) 0 % 02/13/19 04:33 1.0 % (0.0-7.3) 02/13/19 04:33 0 % (0.0-4.3) 02/13/19 04:33 0 % (0.0-1.8) 02/13/19 04:33 1.0 % 02/13/19 04:33 0 % 02/13/19 04:33 0 % 02/13/19 04:33 0 % 02/13/19 04:33 Nucleated RBC % Not Reportable 02/13/19 04:33 Seg Neutrophils # 4.5 K/mm3 (1.8-7.7) 02/03/19 18:06 Seg Neutrophils # Man 15.9 K/mm3 (1.8-7.7) H 02/13/19 04:33 Band Neutrophils # 0.0 K/mm3 02/13/19 04:33 0.5 K/mm3 (1.2-5.4) L 02/13/19 04:33 Abs React Lymphs (Man) 0.0 K/mm3 02/13/19 04:33 0.2 K/mm3 (0.0-0.8) 02/13/19 04:33 0.0 K/mm3 (0.0-0.4) 02/13/19 04:33 0.0 K/mm3 (0.0-0.1) 02/13/19 04:33 0.2 K/mm3 02/13/19 04:33 0.0 K/mm3 02/13/19 04:33 0.0 K/mm3 02/13/19 04:33 Blast Cells # 0.0 K/mm3 02/13/19 04:33 WBC Morphology Not Reportable 02/13/19 04:33 Hypersegmented Neuts Not Reportable 02/13/19 04:33 Hyposegmented Neuts Not Reportable 02/13/19 04:33 Hypogranular Neuts Not Reportable 02/13/19 04:33 Not Reportable 02/13/19 04:33 1+ 02/13/19 04:33 Not Reportable 02/13/19 04:33 Not Reportable 02/13/19 04:33 Not Reportable 02/13/19 04:33 Not Reportable 02/13/19 04:33 Consistent w auto 02/13/19 04:33 Not Reportable 02/13/19 04:33 Plt Clumps, EDTA Not Reportable 02/13/19 04:33 Not Reportable 02/13/19 04:33 Not Reportable 02/13/19 04:33 Not Reportable 02/13/19 04:33 Plt Morphology Comment Not Reportable 02/13/19 04:33 RBC Morphology Not Reportable 02/13/19 04:33 Dimorphic RBCs Not Reportable 02/13/19 04:33 Few 02/13/19 04:33 Not Reportable 02/13/19 04:33 Not Reportable 02/13/19 04:33 1+ 02/13/19 04:33 Not Reportable 02/13/19 04:33 Not Reportable 02/13/19 04:33 Not Reportable 02/13/19 04:33 Not Reportable 02/13/19 04:33 Not Reportable 02/13/19 04:33 Not Reportable 02/13/19 04:33 Not Reportable 02/13/19 04:33 Not Reportable 02/13/19 04:33 Not Reportable 02/13/19 04:33 Not Reportable 02/13/19 04:33 Not Reportable 02/13/19 04:33 Not Reportable 02/13/19 04:33 Not Reportable 02/13/19 04:33 Not Reportable 02/13/19 04:33 Not Reportable 02/13/19 04:33 Acanthocytes (Spur) Not Reportable 02/13/19 04:33 Rouleaux Not Reportable 02/13/19 04:33 Not Reportable 02/13/19 04:33 Not Reportable 02/13/19 04:33 Not Reportable 02/13/19 04:33 Not Reportable 02/13/19 04:33 Hem Pathologist Commnt No 02/13/19 04:33 PT 19.3 Sec. (12.2-14.9) H 02/03/19 19:24 INR 1.52 (0.87-1.13) H 02/03/19 19:24 APTT 30.3 Sec. (24.2-36.6) 02/03/19 19:24 POC ABG pH 7.466 (7.35-7.45) H 02/12/19 05:44 POC ABG pCO2 33.5 (35-45) L 02/12/19 05:44 POC ABG pO2 118 (80-105) H 02/12/19 05:44 POC ABG HCO3 24.1 (22-26 mml/L) 02/12/19 05:44 POC ABG Total CO2 25 (23-27mmol/L) 02/12/19 05:44 POC ABG O2 Sat 99 02/12/19 05:44 POC ABG Base Excess 0 ((-2) - (+3)mmol/L) 02/12/19 05:44 30 % 02/12/19 05:44 Sodium 145 mmol/L (137-145) 02/13/19 04:33 Potassium 4.1 mmol/L (3.6-5.0) 02/13/19 04:33 Chloride 113.7 mmol/L (98-107) H 02/13/19 04:33 Carbon Dioxide 23 mmol/L (22-30) 02/13/19 04:33 12 mmol/L 02/13/19 04:33 BUN 16 mg/dL (7-17) 02/13/19 04:33 0.4 mg/dL (0.7-1.2) L 02/13/19 04:33 Estimated GFR > 60 ml/min 02/13/19 04:33 40 % 02/13/19 04:33 Glucose 193 mg/dL (65-100) H 02/13/19 04:33 POC Glucose 147 (70-105) H 02/12/19 11:54 Lactic Acid 1.70 mmol/L (0.7-2.0) 02/05/19 04:41 Calcium 9.6 mg/dL (8.4-10.2) 02/13/19 04:33 Phosphorus 3.10 mg/dL (2.5-4.5) 02/13/19 04:33 Magnesium 1.90 mg/dL (1.7-2.3) 02/13/19 04:33 0.30 mg/dL (0.1-1.2) 02/03/19 18:08 AST 35 units/L (5-40) 02/03/19 18:08 ALT 27 units/L (7-56) 02/03/19 18:08 117 units/L (35-129) 02/03/19 18:08 0.058 ng/mL (0.00-0.029) H D 02/08/19 18:52 9.30 mg/dL (0.00-1.30) H 02/04/19 17:07 NT-Pro-B Natriuret Pep 9160 pg/mL (0-900) H 02/03/19 18:06 5.1 g/dL (6.3-8.2) L 02/03/19 18:08 2.8 g/dL (3.9-5) L 02/03/19 18:08 1.2 % 02/03/19 18:08 Triglycerides 164 mg/dL (2-149) H 02/03/19 18:08 Cholesterol 125 mg/dL (50-199) 02/03/19 18:08 75 mg/dL (50-130) 02/03/19 18:08 31 mg/dL (40-59) L 02/03/19 18:08 4.03 % 02/03/19 18:08 Yellow (Yellow) 02/03/19 02:57 Clear (Clear) 02/03/19 02:57 6.0 (5.0-7.0) 02/03/19 02:57 Ur Specific [place] 1.011 (1.003-1.030) 02/03/19 02:57 <15 mg/dl mg/dL (Negative) 02/03/19 02:57 Neg mg/dL (Negative) 02/03/19 02:57 Neg mg/dL (Negative) 02/03/19 02:57 Neg (Negative) 02/03/19 02:57 Neg (Negative) 02/03/19 02:57 Neg (Negative) 02/03/19 02:57 < 2.0 mg/dL (<2.0) 02/03/19 02:57 Ur Leukocyte Esterase Neg (Negative) 02/03/19 02:57 7.0 /HPF (0.0-6.0) H 02/03/19 02:57 8.0 /HPF (0.0-6.0) 02/03/19 02:57 U Epithel Cells (Auto) 1.0 /HPF (0-13.0) 02/03/19 02:57 2+ /HPF (Negative) 02/03/19 02:57 Hyaline Casts 22 /LPF 02/03/19 02:57 3+ /HPF 02/03/19 02:57 Blood Type A POSITIVE 02/03/19 18:06 Antibody Screen Negative 02/03/19 18:06 Crossmatch See Detail 02/03/19 18:06 Active Medications - Current Medications Current Medications: Generic Name Dose Route Start Last Admin Trade Name Freq PRN Reason Stop Dose Admin Albuterol/Ipratropium 1 ampul 02/04/19 02:00 02/13/19 07:55 Duoneb *Not For Prn Use* IH 1 ampul Q6HRT JOEL Administration Lipase/Protease/Amylase 1 each 02/08/19 16:37 Pancreaze 10,500 Unit FEEDTUBE PRN PRN For Clogged Feeding Tube Arformoterol Tartrate 15 mcg 02/04/19 14:15 02/13/19 07:55 Brovana Nebu IH 15 mcg Q12HRT JOEL Administration Budesonide 0.5 mg 02/04/19 20:00 02/13/19 07:55 Pulmicort IH 0.5 mg Q12HRT JOEL Administration Hydrophilic Ointment 1 applic 02/06/19 10:50 Vaseline Lip Therapy TP Q2HR PRN Dry Lips Potassium Chloride/Dextrose/Sod Cl 20 meq in 1,000 mls @ 60 mls/hr 02/12/19 19:00 02/13/19 13:38 D5w/0.45% Nacl/Kcl 20 Meq IV 60 mls/hr DIRECT JOEL Administration Methylprednisolone Sodium Succinate 20 mg 02/13/19 10:00 02/13/19 09:46 Solu-Medrol IV 02/13/19 22:01 20 mg Q12HR JOEL Administration Methylprednisolone Sodium Succinate 20 mg 02/14/19 10:00 Solu-Medrol IV 02/16/19 10:01 DAILY JOEL Morphine Sulfate 1 mg 02/12/19 14:00 02/13/19 13:31 Morphine IV 1 mg Q4H PRN Administration Pain, Moderate (4-6) Multi-Ingred Cream/Lotion/Oil/Oint 1 applic 02/06/19 10:50 Artificial Tears Ophth Oint OU Q4HR PRN Dry Eye(s) Ondansetron HCl 4 mg 02/03/19 20:27 02/09/19 16:37 Zofran IV 4 mg Q8H PRN Administration Nausea And Vomiting Pantoprazole Sodium 40 mg 02/09/19 19:00 02/13/19 09:45 Protonix IV 40 mg QDAY JOEL Administration Simple Syrup 15 ml 02/08/19 16:37 Simple Syrup FEEDTUBE PRN PRN Hypoglycemia Simple Syrup 30 ml 02/08/19 16:37 Simple Syrup FEEDTUBE PRN PRN Hypoglycemia Sodium Bicarbonate 325 mg 02/08/19 16:37 Sodium Bicarbonate FEEDTUBE PRN PRN For Clogged Feeding Tube Sodium Chloride 10 ml 02/03/19 22:00 02/12/19 21:19 Sodium Chloride Flush Syringe 10 Ml IV 10 ml BID JOEL Administration Sodium Chloride 10 ml 02/03/19 20:27 Sodium Chloride Flush Syringe 10 Ml IV PRN PRN LINE FLUSH Nutrition/Malnutrition Assess - Dietary Evaluation Nutrition/Malnutrition Findings: Nutrition Notes Start: 02/04/19 14:37 Freq: Status: Active Protocol: Document 02/11/19 16:21 LARS (Rec: 02/11/19 16:26 LARS [id number] [email or web address]) Nutrition Notes Initial or Follow up Reassessment Current Diagnosis Heart Failure,Respiratory Failure Other Pertinent Diagnosis AMS Current Diet TF - Glucerna 1.2 at 45ml/hr Labs/Tests Na 148 BUN 23 BG 195 Pertinent Medications Protonix, D5 NS + 20mEq KCl at 100ml/hr Height 5 ft 3 in Weight 36.2 kg Pound Body Weight (kg) 52.27 BMI 14.1 Subjective/Other Information Pt remains on vent support. Emesis reported on 02/09; SBO present. NGT placed to LIS; TF stopped. Burn Absent Trauma Absent #1 Nutrition Diagnosis Inadequate oral intake Diagnosis Progress(for reassessment Continues documentation) Is patient on ventilator? Yes Is Patient Ambulatory and/or Out of Bed No REE-([facility]-confined to bed) 1027.632 Kcal/Kg value to use for calculation 40 Approximate Energy Requirements Using 1448 kcal/Kg Calculation Used for Recommendations Kcal/kg Additional Notes Pro needs 1.2-2g/k-72g/ day Fluid needs 1ml/kcal Nutrition Intervention Nutrition Support: Resume TF when medically feasible Goal #1 Resume TF to meet nutrient needs Follow-Up By: 02/14/19 Additional Comments F/U: TF restart, vent status ( Day 5 NPO)
--- NOTE | 2019-02-13 14:31 | Progress Note ---
Assessment and Plan 1. Hypernatremia: Sodium is better. Continue D5 1/2 NS. Monitor Sodium level. 2. FEN: On IV fluids. Monitor lytes. 3. Respiratory failure: S/p extubated. 4. Bowel obstruction: S/p exploratory laparotomy and right hemicolectomy. Followed by Gen. Surgery. 5. Anemia and Leukocytosis. 6. Encephalopathy. Subjective Date of service: 02/13/19 Principal diagnosis: Ac hypoxemic Resp failure; Severe Anemia; AE-COPD; G.I. Bleed; Septic Shock Interval history: Patient was seen and examined at the bedside. at the bedside. Objective - Vital Signs Vital signs: Vital Signs - 12hr 02/13/19 02/13/19 02/13/19 02:33 03:01 04:00 Temperature 98.8 F Pulse Rate 107 H 96 H Pulse Rate [ 98 H Anterior Bilateral Throughout] Pulse Rate [ 93 H From Monitor] Respiratory 19 21 Rate Respiratory 23 Rate [Anterior Bilateral Throughout] Blood Pressure 128/79 125/79 O2 Sat by Pulse 99 Oximetry 02/13/19 02/13/19 02/13/19 05:00 06:00 07:00 Temperature Pulse Rate 87 92 H 87 Pulse Rate [ Anterior Bilateral Throughout] Pulse Rate [ From Monitor] Respiratory 17 24 22 Rate Respiratory Rate [Anterior Bilateral Throughout] Blood Pressure 134/73 137/87 132/80 O2 Sat by Pulse 98 98 92 Oximetry 02/13/19 02/13/19 02/13/19 07:30 07:56 08:00 Temperature 97.6 F Pulse Rate 87 Pulse Rate [ 89 Anterior Bilateral Throughout] Pulse Rate [ 85 From Monitor] Respiratory 23 Rate Respiratory 18 Rate [Anterior Bilateral Throughout] Blood Pressure 143/83 O2 Sat by Pulse 95 95 Oximetry 02/13/19 02/13/19 02/13/19 09:00 10:00 11:00 Temperature Pulse Rate 93 H 95 H 93 H Pulse Rate [ Anterior Bilateral Throughout] Pulse Rate [ From Monitor] Respiratory 23 23 22 Rate Respiratory Rate [Anterior Bilateral Throughout] Blood Pressure 135/77 131/76 131/80 O2 Sat by Pulse 95 99 100 Oximetry 02/13/19 12:00 Temperature 97.2 F L Pulse Rate 90 Pulse Rate [ Anterior Bilateral Throughout] Pulse Rate [ From Monitor] Respiratory 23 Rate Respiratory Rate [Anterior Bilateral Throughout] Blood Pressure 129/74 O2 Sat by Pulse 98 Oximetry - General Appearance General appearance: well-developed, appears stated age, cachectic, other (no distress, NG tube noted) EENT: ATNC, PERRL Neck: supple Respiratory: Present: Clear to Ascultation Cardiology: regular, S1S2, no murmurs Gastrointestinal: normoactive bowel sounds, no tenderness Integumentary: no rash Neurologic: other (non-verbal, not following any command) Musculoskeletal: other (no edema) - Lab 02/13/19 04:33 02/13/19 04:33 Most recent lab results Calcium 9.6 mg/dL (8.4-10.2) 02/13/19 04:33 Phosphorus 3.10 mg/dL (2.5-4.5) 02/13/19 04:33 Magnesium 1.90 mg/dL (1.7-2.3) 02/13/19 04:33 Medications & Allergies - Medications Allergies/Adverse Reactions: Allergies No Known Allergies Allergy (Unverified 02/03/19 18:28) Home Medications: Home Medications Medication Instructions Recorded Confirmed Last Taken Type No Known Home Medications [No 02/07/19 02/07/19 Unknown History Reported Home Medications] Active Medications: Generic Name Dose Route Start Last Admin Trade Name Freq PRN Reason Stop Dose Admin Albuterol/Ipratropium 1 ampul 02/04/19 02:00 02/13/19 07:55 Duoneb *Not For Prn Use* IH 1 ampul Q6HRT JOEL Administration Lipase/Protease/Amylase 1 each 02/08/19 16:37 Pancrebrant [place] 10,500 Unit FEEDTUBE PRN PRN For Clogged Feeding Tube Arformoterol Tartrate 15 mcg 02/04/19 14:15 02/13/19 07:55 Brovana Nebu IH 15 mcg Q12HRT JOEL Administration Budesonide 0.5 mg 02/04/19 20:00 02/13/19 07:55 Pulmicort IH 0.5 mg Q12HRT JOEL Administration Hydrophilic Ointment 1 applic 02/06/19 10:50 Vaseline Lip Therapy TP Q2HR PRN Dry Lips Potassium Chloride/Dextrose/Sod Cl 20 meq in 1,000 mls @ 60 mls/hr 02/12/19 19:00 02/13/19 13:38 D5w/0.45% Nacl/Kcl 20 Meq IV 60 mls/hr DIRECT JOEL Administration Methylprednisolone Sodium Succinate 20 mg 02/13/19 10:00 02/13/19 09:46 Solu-Medrol IV 02/13/19 22:01 20 mg Q12HR JOEL Administration Methylprednisolone Sodium Succinate 20 mg 02/14/19 10:00 Solu-Medrol IV 02/16/19 10:01 DAILY JOEL Morphine Sulfate 1 mg 02/12/19 14:00 02/13/19 13:31 Morphine IV 1 mg Q4H PRN Administration Pain, Moderate (4-6) Multi-Ingred Cream/Lotion/Oil/Oint 1 applic 02/06/19 10:50 Artificial Tears Ophth Oint OU Q4HR PRN Dry Eye(s) Ondansetron HCl 4 mg 02/03/19 20:27 02/09/19 16:37 Zofran IV 4 mg Q8H PRN Administration Nausea And Vomiting Pantoprazole Sodium 40 mg 02/09/19 19:00 02/13/19 09:45 Protonix IV 40 mg QDAY JOEL Administration Simple Syrup 15 ml 02/08/19 16:37 Simple Syrup FEEDTUBE PRN PRN Hypoglycemia Simple Syrup 30 ml 02/08/19 16:37 Simple Syrup FEEDTUBE PRN PRN Hypoglycemia Sodium Bicarbonate 325 mg 02/08/19 16:37 Sodium Bicarbonate FEEDTUBE PRN PRN For Clogged Feeding Tube Sodium Chloride 10 ml 02/03/19 22:00 02/12/19 21:19 Sodium Chloride Flush Syringe 10 Ml IV 10 ml BID JOEL Administration Sodium Chloride 10 ml 02/03/19 20:27 Sodium Chloride Flush Syringe 10 Ml IV PRN PRN LINE FLUSH
--- NOTE | 2019-02-13 14:59 | Operative Report ---
PREOPERATIVE DIAGNOSIS: Bowel obstruction. 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 PROCEDURE: Exploratory laparotomy and right hemicolectomy. ANESTHESIA: General endotracheal anesthesia. SURGEON: Gabriella Lew DO TACTICAL RESPONSE GROUP OFFICER: Amee Garcia MD ESTIMATED BLOOD LOSS: Minimal. PATHOLOGY: Right colon. SPECIMEN DISPOSITION: To lab. CONDITION AND DISPOSITION: The patient is stable to ICU. HISTORY AND INDICATION: The patient is a 68-year-old female who presented to the hospital with decreased responsiveness and her hemoglobin was found to be 1.9. She was transfused with 5 units of blood and had acute respiratory distress. She was therefore intubated to protect her airway. The patient was on tube feeds, however, started vomiting and her abdomen became more distended. Therefore, an NG tube was placed. The patient was managed conservatively. The patient remained stable and complained of minimal abdominal pain, even off of pain medications. She was monitored for 24 hours with NG tube and conservative management; however, her x-rays did not improve and was concerning for a large bowel obstruction, possible volvulus. Therefore, surgery was recommended. All risks, benefits, and alternatives to surgery were discussed with the patient and her family. The patient did agree to undergo surgical intervention and consent was obtained by her . All questions were answered. PROCEDURE IN DETAIL: The patient was identified in the preoperative area, taken back to the operating room, and placed on the operating table in supine position. After anesthesia was induced, a Sadler catheter was sterilely placed by the circulating nurse. Abdomen was then prepped and draped in the usual sterile fashion and timeout was performed. A midline incision was made using a #10 blade. Dissection was then carried down through the skin and subcutaneous tissue using Bovie electrocautery until the fascia was identified. The fascia was grasped between 2 hemostats and incised with the electrocautery. The peritoneum was identified and bluntly entered with a gloved finger. The incision was then completed in a cephalad and caudad direction using electrocautery over 2 gloved fingers. Upon inspection of the abdomen, there were some mildly dilated small bowel loops and in the right upper abdomen, the cecum was visualized and was very distended. 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 However, all of the bowel was viable. The cecum was untwisted and eviscerated. The retroperitoneal attachments to the right colon were very lax and the patient had a very redundant colon. Therefore, it was decided to perform a right hemicolectomy. The white line of Toldt was incised and the colon mobilized from lateral to medial. This was done in avascular plane and with great care to preserve the retroperitoneal layer. The terminal ileum was also freed from any adhesions using electrocautery. A window was made in the mesentery of the terminal ileum approximately 3-4 cm proximal to the ileocecal valve using electrocautery and the terminal ileum was transected using a RAQUEL-75 mm blue load stapler. Once the ascending colon and transverse colon were adequately mobilized, the window was made in the mesentery of the transverse colon to the right of the takeoff of the middle colic artery and using Bovie electrocautery. The transverse colon was then transected using a RAQUEL-75 mm blue load stapler. The mesentery was ligated using an EnSeal. The specimen was passed off the table. The remainder of the colon and small bowel were unremarkable. The transverse colon and the terminal ileum were then aligned along their antimesenteric borders and a stay stitch was placed using 3-0 silk. Blue towels were placed into the field in order to prevent spillage and the corner of each staple line was cut. A [id number] functional end-to-end ileocolonic anastomosis was then created using a RAQUEL-75 mm blue load stapler. The common enterotomy was checked for hemostasis, which was carefully ensured. The common enterotomy was then closed with a TA-60 stapler. Any bleeding from the staple line was controlled using 3-0 silk [id number] sutures. The common channel was then checked with palpation and was widely patent. The mesentery was checked and was aligned in anatomic position without any twisting. The abdomen was then irrigated until the irrigant returned clear. Hemostasis was carefully ensured. The abdomen was checked for foreign sponges or instruments and there were none found. The preliminary count was correct. A piece of omentum was used to cover the staple line using a 3-0 silk suture. The mesenteric defect was closed with a running 3-0 Vicryl suture. The fascia was then closed in the usual fashion using #1 looped PDS suture x 2. The skin was irrigated and closed with val. The incision was covered with a 4 x 4 fluff gauze, ABD pads and Medipore tape. At the end of the case, all sponge, instrument, and sharp counts were correct x 2. The patient was taken to the PACU intubated and in stable condition. JOB# [id number] NK/KELLY BANUELOS
--- NOTE | 2019-02-13 15:20 | Progress Note ---
Assessment and Plan 68 yo F s/p exploratory laparotomy, right hemicolectomy POD2, for cecal volvulus and large bowel obstruction 1. ARF on vent 2. anemia 3. GIB 4. n/v, SBO 5. hx CHF, EF 20-25% Plan: 1. dc NGT 2. start pureed diet with thin liquids as per speech therapy. Will need protein supplements once she is tolerating diet 3. gentle IVF 4. protonix IV 5. Await bowel function 6. DVT ppx 7. prn pain control - morphine IV ordered Discussed plan with patient and at bedside. Thank you, please call with questions. Subjective Date of service: 02/13/19 Narrative: Pt seen and examined. Extubated yesterday. c/o abdominal pain. No n/v. No f/c. Sitting in chair. Objective Vital Signs - 12hr 02/13/19 02/13/19 02/13/19 04:00 05:00 06:00 Temperature 98.8 F Pulse Rate 96 H 87 92 H Pulse Rate [ Anterior Bilateral Throughout] Pulse Rate [ 93 H From Monitor] Respiratory 21 17 24 Rate Respiratory Rate [Anterior Bilateral Throughout] Blood Pressure 125/79 134/73 137/87 O2 Sat by Pulse 99 98 98 Oximetry 02/13/19 02/13/19 02/13/19 07:00 07:30 07:56 Temperature 97.6 F Pulse Rate 87 Pulse Rate [ 89 Anterior Bilateral Throughout] Pulse Rate [ From Monitor] Respiratory 22 Rate Respiratory 18 Rate [Anterior Bilateral Throughout] Blood Pressure 132/80 O2 Sat by Pulse 92 95 Oximetry 02/13/19 02/13/19 02/13/19 08:00 09:00 10:00 Temperature Pulse Rate 87 93 H 95 H Pulse Rate [ Anterior Bilateral Throughout] Pulse Rate [ 85 From Monitor] Respiratory 23 23 23 Rate Respiratory Rate [Anterior Bilateral Throughout] Blood Pressure 143/83 135/77 131/76 O2 Sat by Pulse 95 95 99 Oximetry 02/13/19 02/13/19 11:00 12:00 Temperature 97.2 F L Pulse Rate 93 H 90 Pulse Rate [ Anterior Bilateral Throughout] Pulse Rate [ From Monitor] Respiratory 22 23 Rate Respiratory Rate [Anterior Bilateral Throughout] Blood Pressure 131/80 129/74 O2 Sat by Pulse 100 98 Oximetry - General physical appearance Narrative Exam: Gen: Awake and alert. Nonverbal. ENT: no scleral icterus. NGT with clear light brown gastric drainage CV: S1, S2+ Resp; even and unlabored Abd; soft, ND, mild incisional TTP. Dressing removed. Incision c/d/i with val in place. Ext: no c/c/e - Labs 02/13/19 04:33 02/13/19 04:33 Diabetes panel 02/13/19 Range/Units 04:33 Sodium 145 (137-145) mmol/L Potassium 4.1 (3.6-5.0) mmol/L Chloride 113.7 H (98-107) mmol/L Carbon Dioxide 23 (22-30) mmol/L BUN 16 (7-17) mg/dL Creatinine 0.4 L (0.7-1.2) mg/dL Glucose 193 H (65-100) mg/dL Calcium 9.6 (8.4-10.2) mg/dL Calcium panel 02/13/19 Range/Units 04:33 Calcium 9.6 (8.4-10.2) mg/dL Phosphorus 3.10 (2.5-4.5) mg/dL Pituitary panel 02/13/19 Range/Units 04:33 Sodium 145 (137-145) mmol/L Potassium 4.1 (3.6-5.0) mmol/L Chloride 113.7 H (98-107) mmol/L Carbon Dioxide 23 (22-30) mmol/L BUN 16 (7-17) mg/dL Creatinine 0.4 L (0.7-1.2) mg/dL Glucose 193 H (65-100) mg/dL Calcium 9.6 (8.4-10.2) mg/dL Adrenal panel 02/13/19 Range/Units 04:33 Sodium 145 (137-145) mmol/L Potassium 4.1 (3.6-5.0) mmol/L Chloride 113.7 H (98-107) mmol/L Carbon Dioxide 23 (22-30) mmol/L BUN 16 (7-17) mg/dL Creatinine 0.4 L (0.7-1.2) mg/dL Glucose 193 H (65-100) mg/dL Calcium 9.6 (8.4-10.2) mg/dL
[2019-02-13] MEDS: SODIUM CHLORIDE FLUSH SYRINGE 10 ML IV SCH ×2 (19:27→22:10)
[2019-02-14] MEDS: DUONEB *Not for PRN Use IH SCH ×4 (01:54→21:07)
[2019-02-14 05:13] LABS: Hematocrit 31.6 % (30.3-42.9); Mean Corpuscular HGB Conc 32 % (30-34); Mean Corpuscular Volume 89 fl (79-97); Platelet Count 238 K/mm3 (140-440); Red Blood Count 3.56 M/mm3 (3.65-5.03); Red Cell Distribution Width 19.1 % (13.2-15.2)
[2019-02-14 05:30] LABS: Blood Urea Nitrogen 15 mg/dL (7-17)
[2019-02-14 06:17] LABS: Band Neutrophils # (Manual) 0.2 K/mm3; Basophils % (Manual) 0 % (0.0-1.8); Eosinophils % (Manual) 0 % (0.0-4.3); Monocytes % (Manual) 0 % (0.0-7.3); Total Cells Counted 100
[2019-02-14 06:18] LABS: Anisocytosis 1+; Platelet Estimate Consistent w Auto; Toxic Granulation 1+
[2019-02-14 06:39] LABS: BUN/Creatinine Ratio 38; Calcium 9.1 mg/dL (8.4-10.2); Hemolysis Index 3
[2019-02-14] MEDS: D5W/0.45% NACL/KCL 20 MEQ 20 MEQ/1,000 ML BAG IV SCH (08:16)
[2019-02-14] MEDS: BROVANA NEBU IH SCH ×2 (08:38→21:07)
[2019-02-14] MEDS: PULMICORT IH SCH ×2 (08:38→21:07)
--- NOTE | 2019-02-14 09:13 | Progress Note ---
Assessment and Plan 68 yo F s/p exploratory laparotomy, right hemicolectomy POD3, for cecal volvulus and large bowel obstruction 1. ARF on vent 2. anemia 3. GIB 4. n/v, SBO 5. hx CHF, EF 20-25% Plan: 1. insert dobhoff to supplement nutrition with TF. Discussed with tongue presser 2. pureed diet with thin liquids as per speech therapy. Will need protein supple ments once she is tolerating diet 3. gentle IVF 4. protonix IV 5. DVT ppx 6. prn PO pain control 7. OOB/PT Will likely need rehab upon dc. Discussed plan with patient and at bedside. Thank you, please call with questions. Subjective Date of service: 02/14/19 Narrative: Pt seen and examined. Does not answer questions or talk. No flatus or BM. Objective Vital Signs - 12hr 02/13/19 02/13/19 02/13/19 22:00 22:45 23:00 Temperature Pulse Rate 91 H 87 87 Pulse Rate [ Bilateral Bases ] Pulse Rate [ From Monitor] Pulse Rate [ Right Dorsalis Pedis] Respiratory 17 23 21 Rate Respiratory Rate [Bilateral Bases] Blood Pressure 146/83 143/86 144/84 O2 Sat by Pulse 98 98 98 Oximetry 02/13/19 02/14/19 02/14/19 23:44 00:00 01:01 Temperature 98.0 F Pulse Rate 85 83 Pulse Rate [ Bilateral Bases ] Pulse Rate [ 95 H From Monitor] Pulse Rate [ 87 Right Dorsalis Pedis] Respiratory 22 22 Rate Respiratory Rate [Bilateral Bases] Blood Pressure 150/88 144/84 O2 Sat by Pulse 98 Oximetry 02/14/19 02/14/19 02/14/19 01:54 02:01 02:09 Temperature Pulse Rate 84 Pulse Rate [ 83 85 Bilateral Bases ] Pulse Rate [ From Monitor] Pulse Rate [ Right Dorsalis Pedis] Respiratory 22 Rate Respiratory 22 22 Rate [Bilateral Bases] Blood Pressure 159/76 O2 Sat by Pulse 99 Oximetry 02/14/19 02/14/19 02/14/19 03:00 03:59 04:00 Temperature 97.4 F L Pulse Rate 93 H 86 Pulse Rate [ Bilateral Bases ] Pulse Rate [ 88 From Monitor] Pulse Rate [ 88 Right Dorsalis Pedis] Respiratory 24 20 20 Rate Respiratory Rate [Bilateral Bases] Blood Pressure 150/92 142/80 O2 Sat by Pulse 96 98 98 Oximetry 02/14/19 02/14/19 02/14/19 05:00 06:00 07:00 Temperature Pulse Rate 86 88 84 Pulse Rate [ Bilateral Bases ] Pulse Rate [ From Monitor] Pulse Rate [ Right Dorsalis Pedis] Respiratory 22 24 24 Rate Respiratory Rate [Bilateral Bases] Blood Pressure 145/84 143/74 135/77 O2 Sat by Pulse 99 89 90 Oximetry 02/14/19 02/14/19 02/14/19 08:00 08:01 08:36 Temperature 94.8 F L Pulse Rate 90 Pulse Rate [ Bilateral Bases ] Pulse Rate [ From Monitor] Pulse Rate [ Right Dorsalis Pedis] Respiratory 23 Rate Respiratory Rate [Bilateral Bases] Blood Pressure 140/86 O2 Sat by Pulse 95 94 Oximetry 02/14/19 02/14/19 02/14/19 08:38 09:00 09:05 Temperature Pulse Rate 101 H Pulse Rate [ 88 99 H Bilateral Bases ] Pulse Rate [ From Monitor] Pulse Rate [ Right Dorsalis Pedis] Respiratory 26 H Rate Respiratory 18 18 Rate [Bilateral Bases] Blood Pressure 153/88 O2 Sat by Pulse 95 Oximetry - General physical appearance Narrative Exam: Gen; Awake and alert but refuses to talk. NAD. cachectic and frail appearing CV; S1, S2+ resp; even and unlabored Abd; soft, ND, NT. incision c/d/i Ext: no c/c/e - Labs 02/14/19 04:34 02/14/19 04:34 Diabetes panel 02/14/19 Range/Units 04:34 Sodium 143 (137-145) mmol/L Potassium 4.2 (3.6-5.0) mmol/L Chloride 113.1 H (98-107) mmol/L Carbon Dioxide 22 (22-30) mmol/L BUN 15 (7-17) mg/dL Creatinine 0.4 L (0.7-1.2) mg/dL Glucose 215 H (65-100) mg/dL Calcium 9.1 (8.4-10.2) mg/dL Calcium panel 02/14/19 Range/Units 04:34 Calcium 9.1 (8.4-10.2) mg/dL Pituitary panel 02/14/19 Range/Units 04:34 Sodium 143 (137-145) mmol/L Potassium 4.2 (3.6-5.0) mmol/L Chloride 113.1 H (98-107) mmol/L Carbon Dioxide 22 (22-30) mmol/L BUN 15 (7-17) mg/dL Creatinine 0.4 L (0.7-1.2) mg/dL Glucose 215 H (65-100) mg/dL Calcium 9.1 (8.4-10.2) mg/dL Adrenal panel 02/14/19 Range/Units 04:34 Sodium 143 (137-145) mmol/L Potassium 4.2 (3.6-5.0) mmol/L Chloride 113.1 H (98-107) mmol/L Carbon Dioxide 22 (22-30) mmol/L BUN 15 (7-17) mg/dL Creatinine 0.4 L (0.7-1.2) mg/dL Glucose 215 H (65-100) mg/dL Calcium 9.1 (8.4-10.2) mg/dL
[2019-02-14] MEDS ORDERED: SODIUM BICARBONATE FEEDTUBE PRN (09:58)
[2019-02-14] MEDS ORDERED: SIMPLE SYRUP FEEDTUBE PRN ×2 (09:58)
[2019-02-14] MEDS ORDERED: PANCREAZE DR 10,500 UNIT FEEDTUBE PRN (09:58)
--- NOTE | 2019-02-14 10:14 | Progress Note ---
Assessment and Plan 1. Hypernatremia: Sodium is better. Continue D5 1/2 NS. Monitor Sodium level. 2. FEN: On IV fluids. Monitor lytes. 3. Respiratory failure: S/p extubated. 4. Bowel obstruction: S/p exploratory laparotomy and right hemicolectomy. Followed by Gen. Surgery. 5. Anemia and Leukocytosis. 6. Encephalopathy. Will see patient intermittently / prn basis. Subjective Date of service: 02/14/19 Principal diagnosis: Ac hypoxemic Resp failure; Severe Anemia; AE-COPD; G.I. Bleed; Septic Shock Interval history: Patient was seen and examined at the bedside. at the bedside. Objective - Vital Signs Vital signs: Vital Signs - 12hr 02/13/19 02/13/19 02/13/19 22:45 23:00 23:44 Temperature 98.0 F Pulse Rate 87 87 Pulse Rate [ Bilateral Bases ] Pulse Rate [ From Monitor] Pulse Rate [ Right Dorsalis Pedis] Respiratory 23 21 Rate Respiratory Rate [Bilateral Bases] Blood Pressure 143/86 144/84 O2 Sat by Pulse 98 98 Oximetry 02/14/19 02/14/19 02/14/19 00:00 01:01 01:54 Temperature Pulse Rate 85 83 Pulse Rate [ 83 Bilateral Bases ] Pulse Rate [ 95 H From Monitor] Pulse Rate [ 87 Right Dorsalis Pedis] Respiratory 22 22 Rate Respiratory 22 Rate [Bilateral Bases] Blood Pressure 150/88 144/84 O2 Sat by Pulse 98 Oximetry 02/14/19 02/14/19 02/14/19 02:01 02:09 03:00 Temperature Pulse Rate 84 93 H Pulse Rate [ 85 Bilateral Bases ] Pulse Rate [ From Monitor] Pulse Rate [ Right Dorsalis Pedis] Respiratory 22 24 Rate Respiratory 22 Rate [Bilateral Bases] Blood Pressure 159/76 150/92 O2 Sat by Pulse 99 96 Oximetry 02/14/19 02/14/19 02/14/19 03:59 04:00 05:00 Temperature 97.4 F L Pulse Rate 86 86 Pulse Rate [ Bilateral Bases ] Pulse Rate [ 88 From Monitor] Pulse Rate [ 88 Right Dorsalis Pedis] Respiratory 20 20 22 Rate Respiratory Rate [Bilateral Bases] Blood Pressure 142/80 145/84 O2 Sat by Pulse 98 98 99 Oximetry 02/14/19 02/14/19 02/14/19 06:00 07:00 08:00 Temperature 94.8 F L Pulse Rate 88 84 Pulse Rate [ Bilateral Bases ] Pulse Rate [ From Monitor] Pulse Rate [ Right Dorsalis Pedis] Respiratory 24 24 Rate Respiratory Rate [Bilateral Bases] Blood Pressure 143/74 135/77 O2 Sat by Pulse 89 90 Oximetry 02/14/19 02/14/19 02/14/19 08:01 08:36 08:38 Temperature Pulse Rate 90 Pulse Rate [ 88 Bilateral Bases ] Pulse Rate [ From Monitor] Pulse Rate [ Right Dorsalis Pedis] Respiratory 23 Rate Respiratory 18 Rate [Bilateral Bases] Blood Pressure 140/86 O2 Sat by Pulse 95 94 Oximetry 02/14/19 02/14/19 09:00 09:05 Temperature Pulse Rate 101 H Pulse Rate [ 99 H Bilateral Bases ] Pulse Rate [ From Monitor] Pulse Rate [ Right Dorsalis Pedis] Respiratory 26 H Rate Respiratory 18 Rate [Bilateral Bases] Blood Pressure 153/88 O2 Sat by Pulse 95 Oximetry - General Appearance General appearance: well-developed, appears stated age, other (not in distress, NG tube noted) EENT: ATNC, PERRL Neck: supple Respiratory: Present: Clear to Ascultation Cardiology: regular, tachycardia, S1S2, no murmurs Gastrointestinal: normoactive bowel sounds, no tenderness Integumentary: no rash, warm and dry Neurologic: other (non-verbal, not following any command) Musculoskeletal: other (no edema) - Lab 02/14/19 04:34 02/14/19 04:34 Most recent lab results Calcium 9.1 mg/dL (8.4-10.2) 02/14/19 04:34 Phosphorus 3.10 mg/dL (2.5-4.5) 02/13/19 04:33 Magnesium 1.90 mg/dL (1.7-2.3) 02/13/19 04:33 Medications & Allergies - Medications Allergies/Adverse Reactions: Allergies No Known Allergies Allergy (Unverified 02/03/19 18:28) Home Medications: Home Medications Medication Instructions Recorded Confirmed Last Taken Type No Known Home Medications [No 02/07/19 02/07/19 Unknown History Reported Home Medications] Active Medications: Generic Name Dose Route Start Last Admin Trade Name Freq PRN Reason Stop Dose Admin Albuterol/Ipratropium 1 ampul 02/04/19 02:00 02/14/19 08:38 Duoneb *Not For Prn Use* IH 1 ampul Q6HRT JOEL Administration Lipase/Protease/Amylase 1 each 02/08/19 16:37 Juan Smith 10,500 Unit FEEDTUBE PRN PRN For Clogged Feeding Tube Lipase/Protease/Amylase 1 each 02/14/19 09:58 Juan Smith 10,500 Unit FEEDTUBE PRN PRN For Clogged Feeding Tube Arformoterol Tartrate 15 mcg 02/04/19 14:15 02/14/19 08:38 Brovana Nebu IH 15 mcg Q12HRT JOEL Administration Budesonide 0.5 mg 02/04/19 20:00 02/14/19 08:38 Pulmicort IH 0.5 mg Q12HRT JOEL Administration Hydrophilic Ointment 1 applic 02/06/19 10:50 Vaseline Lip Therapy TP Q2HR PRN Dry Lips Potassium Chloride/Dextrose/Sod Cl 20 meq in 1,000 mls @ 60 mls/hr 02/12/19 19:00 02/13/19 13:38 D5w/0.45% Nacl/Kcl 20 Meq IV 60 mls/hr DIRECT JOEL Administration Methylprednisolone Sodium Succinate 20 mg 02/14/19 10:00 Solu-Medrol IV 02/16/19 10:01 DAILY JOEL Morphine Sulfate 1 mg 02/12/19 14:00 02/13/19 13:31 Morphine IV 1 mg Q4H PRN Administration Pain, Moderate (4-6) Multi-Ingred Cream/Lotion/Oil/Oint 1 applic 02/06/19 10:50 Artificial Tears Ophth Oint OU Q4HR PRN Dry Eye(s) Ondansetron HCl 4 mg 02/03/19 20:27 02/09/19 16:37 Zofran IV 4 mg Q8H PRN Administration Nausea And Vomiting Pantoprazole Sodium 40 mg 02/09/19 19:00 02/13/19 09:45 Protonix IV 40 mg QDAY JOEL Administration Simple Syrup 15 ml 02/08/19 16:37 Simple Syrup FEEDTUBE PRN PRN Hypoglycemia Simple Syrup 30 ml 02/08/19 16:37 Simple Syrup FEEDTUBE PRN PRN Hypoglycemia Simple Syrup 15 ml 02/14/19 09:58 Simple Syrup FEEDTUBE PRN PRN Hypoglycemia Simple Syrup 30 ml 02/14/19 09:58 Simple Syrup FEEDTUBE PRN PRN Hypoglycemia Sodium Bicarbonate 325 mg 02/08/19 16:37 Sodium Bicarbonate FEEDTUBE PRN PRN For Clogged Feeding Tube Sodium Bicarbonate 325 mg 02/14/19 09:58 Sodium Bicarbonate FEEDTUBE PRN PRN For Clogged Feeding Tube Sodium Chloride 10 ml 02/03/19 22:00 02/13/19 22:10 Sodium Chloride Flush Syringe 10 Ml IV 10 ml BID JOEL Administration Sodium Chloride 10 ml 02/03/19 20:27 Sodium Chloride Flush Syringe 10 Ml IV PRN PRN LINE FLUSH
[2019-02-14] MEDS: PROTONIX IV SCH (10:15)
[2019-02-14] MEDS: SOLU-Medrol IV SCH (10:15)
[2019-02-14] MEDS: SODIUM CHLORIDE FLUSH SYRINGE 10 ML IV SCH ×2 (10:16→21:58)
--- NOTE | 2019-02-14 11:12 | XRay Report ---
AP ABDOMEN: HISTORY: Dobbhoff placement. The Dobbhoff tube overlies the expected position of the gastric antrum. There are gas-filled loops of small bowel throughout the abdomen suggesting a mild diffuse ileus. No obvious obstructive pattern. Recent surgical changes are noted. IMPRESSION: The Dobbhoff tube terminates in the mid to distal stomach. Ileus.
--- NOTE | 2019-02-14 11:29 | Progress Note ---
Assessment and Plan Acute hypoxemic respiratory failure, on continuous noninvasive ventilation. Acute intussusception Symptomatic anemia with positive stool guaiac. Acute chronic obstructive pulmonary disease exacerbation. Possible acute gastrointestinal bleed. Acute congestive heart failure exacerbation. Seceer Sepsis with Shock Systemic inflammatory response syndrome. Hypokalemia. Elevated serum troponin. Adult failure to thrive. - begin trickle feeding if OK with surgeon - continue conservative volume management strategies (EF 20-25%) - follow clinically off AB's - begin vasopressors to keep MAP > 65 mmHg - prn diuresis - prn BIPAP - continue to wean supplemental oxygen to keep O2 sats >/= 88-90% - continue bronchodilators with pulmonary hygiene per RT - Strict intake and output monitoring - Maintenance of sleep -wake cycle - Mobility protocol for pressure ulcer prophylaxis - continue GI & VTE prophylaxis - Influenza and pneumonia vaccination per protocol ... tentatively transfer to step down unit ... 37' care time including > 15 mins at bedside CODE STATUS: FULL CODE Subjective Date of service: 02/14/19 Principal diagnosis: Ac hypoxemic Resp failure; Severe Anemia; AE-COPD; G.I. Bleed; Septic Shock Interval history: Patient is seen today for: Acute hypoxemic Resp failure; Symptomatic anemia; AE- COPD; G.I. Bleed; Acute congestive heart failure exacerbation; Hypotension; SIRS Seen and examined at bedside; 24-hour events reviewed; nursing and respiratory care staff consulted; no adverse overnight events reported to me; resting peacefully in bed; denies acute chest pains; still SOB; on supplemental oxygen; no emesis or overt aspiration; no gross bleeding Objective Vital Signs - 12hr 02/13/19 02/14/19 02/14/19 23:44 00:00 01:01 Temperature 98.0 F Pulse Rate 85 83 Pulse Rate [ Bilateral Bases ] Pulse Rate [ 95 H From Monitor] Pulse Rate [ 87 Right Dorsalis Pedis] Respiratory 22 22 Rate Respiratory Rate [Bilateral Bases] Blood Pressure 150/88 144/84 O2 Sat by Pulse 98 Oximetry 02/14/19 02/14/19 02/14/19 01:54 02:01 02:09 Temperature Pulse Rate 84 Pulse Rate [ 83 85 Bilateral Bases ] Pulse Rate [ From Monitor] Pulse Rate [ Right Dorsalis Pedis] Respiratory 22 Rate Respiratory 22 22 Rate [Bilateral Bases] Blood Pressure 159/76 O2 Sat by Pulse 99 Oximetry 02/14/19 02/14/19 02/14/19 03:00 03:59 04:00 Temperature 97.4 F L Pulse Rate 93 H 86 Pulse Rate [ Bilateral Bases ] Pulse Rate [ 88 From Monitor] Pulse Rate [ 88 Right Dorsalis Pedis] Respiratory 24 20 20 Rate Respiratory Rate [Bilateral Bases] Blood Pressure 150/92 142/80 O2 Sat by Pulse 96 98 98 Oximetry 02/14/19 02/14/19 02/14/19 05:00 06:00 07:00 Temperature Pulse Rate 86 88 84 Pulse Rate [ Bilateral Bases ] Pulse Rate [ From Monitor] Pulse Rate [ Right Dorsalis Pedis] Respiratory 22 24 24 Rate Respiratory Rate [Bilateral Bases] Blood Pressure 145/84 143/74 135/77 O2 Sat by Pulse 99 89 90 Oximetry 02/14/19 02/14/19 02/14/19 08:00 08:01 08:36 Temperature 94.8 F L Pulse Rate 90 Pulse Rate [ Bilateral Bases ] Pulse Rate [ From Monitor] Pulse Rate [ Right Dorsalis Pedis] Respiratory 23 Rate Respiratory Rate [Bilateral Bases] Blood Pressure 140/86 O2 Sat by Pulse 95 94 Oximetry 02/14/19 02/14/19 02/14/19 08:38 09:00 09:05 Temperature Pulse Rate 101 H Pulse Rate [ 88 99 H Bilateral Bases ] Pulse Rate [ From Monitor] Pulse Rate [ Right Dorsalis Pedis] Respiratory 26 H Rate Respiratory 18 18 Rate [Bilateral Bases] Blood Pressure 153/88 O2 Sat by Pulse 95 Oximetry 02/14/19 10:00 Temperature Pulse Rate 97 H Pulse Rate [ Bilateral Bases ] Pulse Rate [ From Monitor] Pulse Rate [ Right Dorsalis Pedis] Respiratory 25 H Rate Respiratory Rate [Bilateral Bases] Blood Pressure 162/97 O2 Sat by Pulse 92 Oximetry Constitutional: appears uncomfortable, other (elderly looking petite CF normocephalicin no distress, chronically ill looking, cachexia) Eyes: non-icteric ENT: oropharynx moist, other (on supplemental oxygen via nasal canula) Neck: supple, no lymphadenopathy, JVD, other (no thyromegaly) Effort: mildly labored Ascultation: Bilateral: diminished breath sounds, rhonchi Percussion: Bilateral: not dull Cardiovascular: irregular rhythm, other (S1,S2, ) Gastrointestinal: hypoactive bowel sounds, soft, tender (mild), non-distended Integumentary: normal Extremities: no cyanosis, pink and warm, pulses normal, no ischemia or petechiae Neurologic: non-focal exam (grossly), pupils equal and round, CN II-XII normal, other (weak) Psychiatric: mood appropriate, affect normal CBC and BMP: 02/14/19 04:34 02/14/19 04:34 ABG, PT/INR, D-dimer: ABG POC ABG pH 7.466 (7.35-7.45) H 02/12/19 05:44 POC ABG pCO2 33.5 (35-45) L 02/12/19 05:44 POC ABG pO2 118 (80-105) H 02/12/19 05:44 POC ABG HCO3 24.1 (22-26 mml/L) 02/12/19 05:44 POC ABG Total CO2 25 (23-27mmol/L) 02/12/19 05:44 POC ABG O2 Sat 99 02/12/19 05:44 PT/INR, D-dimer PT 19.3 Sec. (12.2-14.9) H 02/03/19 19:24 INR 1.52 (0.87-1.13) H 02/03/19 19:24 Abnormal lab findings: Abnormal Labs 02/03/19 02/03/19 02/03/19 02:57 18:06 18:06 WBC RBC 0.88 L Hgb 1.9 L* Hct 7.1 L* MCH 22 L MCHC 27 L RDW 23.3 H Plt Count 489 H Terry % (Auto) 10.1 H Lymph # 1.1 L Seg Neutrophils % 71.2 H Seg Neuts % (Manual) Lymphocytes % (Manual) Seg Neutrophils # Man Lymphocytes # (Manual) PT INR POC ABG pH POC ABG pCO2 POC ABG pO2 Sodium Potassium Chloride Carbon Dioxide BUN Creatinine Glucose POC Glucose Lactic Acid Calcium Phosphorus Troponin T C-Reactive Protein NT-Pro-B Natriuret Pep 9160 H Total Protein Albumin Triglycerides HDL Cholesterol Urine WBC (Auto) 7.0 H Crossmatch 02/03/19 02/03/19 02/03/19 18:06 18:08 18:08 WBC RBC Hgb Hct MCH MCHC RDW Plt Count Terry % (Auto) Lymph # Seg Neutrophils % Seg Neuts % (Manual) Lymphocytes % (Manual) Seg Neutrophils # Man Lymphocytes # (Manual) PT INR POC ABG pH POC ABG pCO2 POC ABG pO2 Sodium Potassium 3.3 L Chloride Carbon Dioxide 17 L BUN Creatinine Glucose POC Glucose Lactic Acid 9.90 H* Calcium 7.9 L Phosphorus Troponin T 0.134 H* C-Reactive Protein NT-Pro-B Natriuret Pep Total Protein 5.1 L Albumin 2.8 L Triglycerides 164 H HDL Cholesterol 31 L Urine WBC (Auto) Crossmatch See Detail 02/03/19 02/03/19 02/03/19 19:24 19:24 19:24 WBC RBC Hgb Hct MCH MCHC RDW Plt Count Terry % (Auto) Lymph # Seg Neutrophils % Seg Neuts % (Manual) Lymphocytes % (Manual) Seg Neutrophils # Man Lymphocytes # (Manual) PT 19.3 H INR 1.52 H POC ABG pH POC ABG pCO2 POC ABG pO2 Sodium Potassium Chloride Carbon Dioxide BUN Creatinine Glucose POC Glucose Lactic Acid 6.30 H* Calcium Phosphorus Troponin T 0.139 H* C-Reactive Protein NT-Pro-B Natriuret Pep Total Protein Albumin Triglycerides HDL Cholesterol Urine WBC (Auto) Crossmatch 02/03/19 02/03/19 02/04/19 20:30 23:36 01:18 WBC RBC Hgb Hct MCH MCHC RDW Plt Count Terry % (Auto) Lymph # Seg Neutrophils % Seg Neuts % (Manual) Lymphocytes % (Manual) Seg Neutrophils # Man Lymphocytes # (Manual) PT INR POC ABG pH 7.515 H POC ABG pCO2 POC ABG pO2 121 H Sodium Potassium Chloride Carbon Dioxide BUN Creatinine Glucose POC Glucose Lactic Acid 6.50 H* 5.70 H* Calcium Phosphorus Troponin T C-Reactive Protein NT-Pro-B Natriuret Pep Total Protein Albumin Triglycerides HDL Cholesterol Urine WBC (Auto) Crossmatch 02/04/19 02/04/19 02/04/19 04:35 04:35 04:35 WBC 17.5 H RBC Hgb Hct MCH 27 L MCHC RDW 15.9 H Plt Count Terry % (Auto) Lymph # Seg Neutrophils % Seg Neuts % (Manual) 96.0 H Lymphocytes % (Manual) 1.0 L Seg Neutrophils # Man 16.8 H Lymphocytes # (Manual) 0.2 L PT INR POC ABG pH POC ABG pCO2 POC ABG pO2 Sodium 147 H Potassium 3.2 L Chloride Carbon Dioxide 21 L BUN Creatinine Glucose 170 H POC Glucose Lactic Acid 3.60 H* Calcium 7.9 L Phosphorus Troponin T C-Reactive Protein NT-Pro-B Natriuret Pep Total Protein Albumin Triglycerides HDL Cholesterol Urine WBC (Auto) Crossmatch 02/04/19 02/04/19 02/04/19 10:59 17:07 17:07 WBC RBC Hgb Hct MCH MCHC RDW Plt Count Terry % (Auto) Lymph # Seg Neutrophils % Seg Neuts % (Manual) Lymphocytes % (Manual) Seg Neutrophils # Man Lymphocytes # (Manual) PT INR POC ABG pH POC ABG pCO2 POC ABG pO2 Sodium Potassium 3.1 L Chloride Carbon Dioxide BUN Creatinine Glucose POC Glucose Lactic Acid 2.30 H* Calcium Phosphorus Troponin T C-Reactive Protein 9.30 H NT-Pro-B Natriuret Pep Total Protein Albumin Triglycerides HDL Cholesterol Urine WBC (Auto) Crossmatch 02/04/19 02/04/19 02/05/19 17:15 21:04 00:05 WBC RBC Hgb Hct MCH MCHC RDW Plt Count Terry % (Auto) Lymph # Seg Neutrophils % Seg Neuts % (Manual) Lymphocytes % (Manual) Seg Neutrophils # Man Lymphocytes # (Manual) PT INR POC ABG pH 7.310 L POC ABG pCO2 POC ABG pO2 68 L Sodium Potassium Chloride Carbon Dioxide BUN Creatinine Glucose POC Glucose Lactic Acid 2.40 H* 2.70 H* Calcium Phosphorus Troponin T C-Reactive Protein NT-Pro-B Natriuret Pep Total Protein Albumin Triglycerides HDL Cholesterol Urine WBC (Auto) Crossmatch 02/05/19 02/05/19 02/05/19 04:41 04:41 12:54 WBC 15.1 H RBC Hgb Hct MCH MCHC RDW 16.6 H Plt Count Terry % (Auto) Lymph # Seg Neutrophils % Seg Neuts % (Manual) 90.0 H Lymphocytes % (Manual) 2.0 L Seg Neutrophils # Man 13.6 H Lymphocytes # (Manual) 0.3 L PT INR POC ABG pH POC ABG pCO2 POC ABG pO2 74 L Sodium 147 H Potassium Chloride 114.1 H Carbon Dioxide 20 L BUN 19 H Creatinine Glucose 192 H POC Glucose Lactic Acid Calcium 7.4 L Phosphorus Troponin T C-Reactive Protein NT-Pro-B Natriuret Pep Total Protein Albumin Triglycerides HDL Cholesterol Urine WBC (Auto) Crossmatch 02/06/19 02/06/19 02/06/19 01:46 11:42 11:42 WBC 21.1 H RBC Hgb Hct MCH MCHC RDW 17.0 H Plt Count Terry % (Auto) Lymph # Seg Neutrophils % Seg Neuts % (Manual) Lymphocytes % (Manual) Seg Neutrophils # Man Lymphocytes # (Manual) PT INR POC ABG pH POC ABG pCO2 34.4 L POC ABG pO2 56 L Sodium 151 H Potassium Chloride 112.1 H Carbon Dioxide BUN Creatinine Glucose 187 H POC Glucose Lactic Acid Calcium 8.1 L Phosphorus Troponin T C-Reactive Protein NT-Pro-B Natriuret Pep Total Protein Albumin Triglycerides HDL Cholesterol Urine WBC (Auto) Crossmatch 02/06/19 02/07/19 02/07/19 12:04 04:26 05:27 WBC 21.7 H RBC Hgb Hct MCH MCHC RDW 17.6 H Plt Count Terry % (Auto) Lymph # Seg Neutrophils % Seg Neuts % (Manual) 98.0 H Lymphocytes % (Manual) 1.0 L Seg Neutrophils # Man 21.3 H Lymphocytes # (Manual) 0.2 L PT INR POC ABG pH 7.481 H POC ABG pCO2 31.3 L POC ABG pO2 63 L 50 L Sodium Potassium Chloride Carbon Dioxide BUN Creatinine Glucose POC Glucose Lactic Acid Calcium Phosphorus Troponin T C-Reactive Protein NT-Pro-B Natriuret Pep Total Protein Albumin Triglycerides HDL Cholesterol Urine WBC (Auto) Crossmatch 02/07/19 02/07/19 02/07/19 05:27 05:29 23:07 WBC RBC Hgb Hct MCH MCHC RDW Plt Count Terry % (Auto) Lymph # Seg Neutrophils % Seg Neuts % (Manual) Lymphocytes % (Manual) Seg Neutrophils # Man Lymphocytes # (Manual) PT INR POC ABG pH POC ABG pCO2 POC ABG pO2 Sodium 147 H Potassium Chloride 108.4 H Carbon Dioxide BUN Creatinine 0.6 L Glucose 184 H POC Glucose 188 H 172 H Lactic Acid Calcium 8.3 L Phosphorus 1.50 L Troponin T C-Reactive Protein NT-Pro-B Natriuret Pep Total Protein Albumin Triglycerides HDL Cholesterol Urine WBC (Auto) Crossmatch 02/08/19 02/08/19 02/08/19 04:26 04:26 11:50 WBC 18.8 H RBC Hgb Hct MCH MCHC RDW 17.7 H Plt Count Terry % (Auto) Lymph # Seg Neutrophils % Seg Neuts % (Manual) Lymphocytes % (Manual) Seg Neutrophils # Man Lymphocytes # (Manual) PT INR POC ABG pH POC ABG pCO2 POC ABG pO2 Sodium Potassium Chloride Carbon Dioxide BUN 19 H Creatinine 0.6 L Glucose 190 H POC Glucose 185 H Lactic Acid Calcium 8.2 L Phosphorus Troponin T C-Reactive Protein NT-Pro-B Natriuret Pep Total Protein Albumin Triglycerides HDL Cholesterol Urine WBC (Auto) Crossmatch 02/08/19 02/08/19 02/08/19 12:01 17:44 18:52 WBC RBC Hgb Hct MCH MCHC RDW Plt Count Terry % (Auto) Lymph # Seg Neutrophils % Seg Neuts % (Manual) Lymphocytes % (Manual) Seg Neutrophils # Man Lymphocytes # (Manual) PT INR POC ABG pH POC ABG pCO2 POC ABG pO2 Sodium Potassium Chloride Carbon Dioxide BUN Creatinine Glucose POC Glucose 186 H 143 H Lactic Acid Calcium Phosphorus Troponin T 0.058 H D C-Reactive Protein NT-Pro-B Natriuret Pep Total Protein Albumin Triglycerides HDL Cholesterol Urine WBC (Auto) Crossmatch 02/08/19 02/09/19 02/09/19 23:24 03:57 03:57 WBC 20.3 H RBC Hgb Hct MCH MCHC RDW 18.0 H Plt Count 92 L Terry % (Auto) Lymph # Seg Neutrophils % Seg Neuts % (Manual) Lymphocytes % (Manual) Seg Neutrophils # Man Lymphocytes # (Manual) PT INR POC ABG pH POC ABG pCO2 POC ABG pO2 Sodium Potassium Chloride Carbon Dioxide BUN 29 H Creatinine 0.5 L Glucose 172 H POC Glucose 205 H Lactic Acid Calcium Phosphorus Troponin T C-Reactive Protein NT-Pro-B Natriuret Pep Total Protein Albumin Triglycerides HDL Cholesterol Urine WBC (Auto) Crossmatch 02/09/19 02/09/19 02/09/19 04:49 12:11 17:27 WBC RBC Hgb Hct MCH MCHC RDW Plt Count Terry % (Auto) Lymph # Seg Neutrophils % Seg Neuts % (Manual) Lymphocytes % (Manual) Seg Neutrophils # Man Lymphocytes # (Manual) PT INR POC ABG pH 7.473 H POC ABG pCO2 POC ABG pO2 Sodium Potassium Chloride Carbon Dioxide BUN Creatinine Glucose POC Glucose 136 H 149 H Lactic Acid Calcium Phosphorus Troponin T C-Reactive Protein NT-Pro-B Natriuret Pep Total Protein Albumin Triglycerides HDL Cholesterol Urine WBC (Auto) Crossmatch 02/10/19 02/10/19 02/10/19 04:59 04:59 04:59 WBC 16.5 H RBC Hgb Hct MCH MCHC RDW 17.7 H Plt Count 94 L Terry % (Auto) Lymph # Seg Neutrophils % Seg Neuts % (Manual) Lymphocytes % (Manual) Seg Neutrophils # Man Lymphocytes # (Manual) PT INR POC ABG pH POC ABG pCO2 POC ABG pO2 Sodium Potassium Chloride Carbon Dioxide BUN 31 H 31 H Creatinine 0.6 L 0.6 L Glucose 149 H 152 H POC Glucose Lactic Acid Calcium Phosphorus Troponin T C-Reactive Protein NT-Pro-B Natriuret Pep Total Protein Albumin Triglycerides HDL Cholesterol Urine WBC (Auto) Crossmatch 02/10/19 02/11/19 02/11/19 05:10 00:06 10:26 WBC 16.4 H RBC Hgb Hct MCH MCHC RDW 18.3 H Plt Count 111 L Terry % (Auto) Lymph # Seg Neutrophils % Seg Neuts % (Manual) Lymphocytes % (Manual) Seg Neutrophils # Man Lymphocytes # (Manual) PT INR POC ABG pH 7.518 H 7.482 H POC ABG pCO2 POC ABG pO2 173 H 119 H Sodium Potassium Chloride Carbon Dioxide BUN Creatinine Glucose POC Glucose Lactic Acid Calcium Phosphorus Troponin T C-Reactive Protein NT-Pro-B Natriuret Pep Total Protein Albumin Triglycerides HDL Cholesterol Urine WBC (Auto) Crossmatch 02/11/19 02/12/19 02/12/19 10:26 04:19 04:19 WBC 16.8 H RBC 3.44 L Hgb 9.6 L Hct 30.2 L D MCH MCHC RDW 18.0 H Plt Count 131 L Terry % (Auto) Lymph # Seg Neutrophils % Seg Neuts % (Manual) Lymphocytes % (Manual) Seg Neutrophils # Man Lymphocytes # (Manual) PT INR POC ABG pH POC ABG pCO2 POC ABG pO2 Sodium 148 H 147 H Potassium Chloride 112.7 H 114.7 H Carbon Dioxide BUN 23 H Creatinine 0.5 L 0.5 L Glucose 195 H 152 H POC Glucose Lactic Acid Calcium Phosphorus Troponin T C-Reactive Protein NT-Pro-B Natriuret Pep Total Protein Albumin Triglycerides HDL Cholesterol Urine WBC (Auto) Crossmatch 02/12/19 02/12/19 02/13/19 05:44 11:54 04:33 WBC 16.7 H RBC 3.24 L Hgb 9.1 L Hct 28.7 L MCH MCHC RDW 18.5 H Plt Count Terry % (Auto) Lymph # Seg Neutrophils % Seg Neuts % (Manual) 95.0 H Lymphocytes % (Manual) 3.0 L Seg Neutrophils # Man 15.9 H Lymphocytes # (Manual) 0.5 L PT INR POC ABG pH 7.466 H POC ABG pCO2 33.5 L POC ABG pO2 118 H Sodium Potassium Chloride Carbon Dioxide BUN Creatinine Glucose POC Glucose 147 H Lactic Acid Calcium Phosphorus Troponin T C-Reactive Protein NT-Pro-B Natriuret Pep Total Protein Albumin Triglycerides HDL Cholesterol Urine WBC (Auto) Crossmatch 02/13/19 02/14/19 02/14/19 04:33 04:34 04:34 WBC 16.3 H RBC 3.56 L Hgb 10.0 L Hct MCH MCHC RDW 19.1 H Plt Count Terry % (Auto) Lymph # Seg Neutrophils % Seg Neuts % (Manual) 98.0 H Lymphocytes % (Manual) 1.0 L Seg Neutrophils # Man 16.0 H Lymphocytes # (Manual) 0.2 L PT INR POC ABG pH POC ABG pCO2 POC ABG pO2 Sodium Potassium Chloride 113.7 H 113.1 H Carbon Dioxide BUN Creatinine 0.4 L 0.4 L Glucose 193 H 215 H POC Glucose Lactic Acid Calcium Phosphorus Troponin T C-Reactive Protein NT-Pro-B Natriuret Pep Total Protein Albumin Triglycerides HDL Cholesterol Urine WBC (Auto) Crossmatch Allied health notes reviewed: nursing
--- NOTE | 2019-02-14 13:54 | Progress Note ---
Assessment and Plan Assessment and plan: Severe Sepsis with Shock. Continue pressors to maintain MAP greater than 65. Follow-up blood cultures. Acute hypoxemic respiratory failure. Patient extubated, the BiPAP as clinically indicated. Cecal volvulus and large Bowel obstruction. S/p exploratory laparotomy and right hemicolectomy. Followed by Gen. Surgery. Pureed diet with thin liquids as per speech therapy. Will need protein supplements once she is tolerating diet. Insert dobhoff to supplement nutrition with TF. Acute chronic obstructive pulmonary disease exacerbation. Continue steroid taper. Bronchodilators and nebulizer treatment. Pulmonary following. Acute systolic congestive heart failure exacerbation(EF 20-25%). Strict intake and output monitoring Hypokalemia, resolved Elevated serum troponin. Etiology likely secondary to #1. ? Type II NE. Adult failure to thrive. PT/OT evaluation Thrombocytopenia Continuing to trend platelet counts. Check HIT panel Disposition. Transfer to telemetry History Interval history: Patient is about 71-year-old female with PMHx of CHF, COPD, who was brought to the ER by EMS after a fall at home, altered mental status, respiratory distress. Per EMS patient was found in severe respiratory distress, laying on the floor and covered in her feces. According to EMS the had asked a neighbor to call EMS because the patient fell on the floor and he was unable to pick her up. He states that she had been sick for a few days, she had trouble breathing, and he had been taking a lot of "goody powder" for pain. On arrival to the ER patient was lethargic, responded to name, her blood pressure was 80/54, the temperature was 97.1, respiration was 40 BPM, she had h&h of 1.9/7.1, GI was consulted and she was admitted for acute GI bleed, acute blood loss anemia, CHF (BNP was 9100) and COPD exacerbation. respiratory failure worsened, so was intubated. She was seen by GI Physician, put on Protonix iv, but EGD not done because unstable. Patient with vomiting vomiting and CT revealed poss bowel obstruction, surg consulted and evaluated her. The patient underwent explorato ry laparotomy, right hemicolectomy for cecal volvulus and large bowel obstruction. Patient was extubated on 02/04/19. Patient with NGT to [facility] Hospitalist Physical - Constitutional Vitals: Temp Pulse Resp BP Pulse Ox 94.4 F L 91 H 26 H 180/90 90 02/14/19 12:00 02/14/19 13:00 02/14/19 13:00 02/14/19 13:00 02/14/19 13:00 General appearance: Present: no acute distress, cachectic - EENT Eyes: Present: PERRL, EOM intact ENT: hearing intact, clear oral mucosa, dentition normal - Neck Neck: Present: supple, normal ROM - Respiratory Respiratory effort: normal Respiratory: bilateral: CTA - Cardiovascular Rhythm: regular Heart Sounds: Present: S1 & S2. Absent: gallop, rub - Extremities Extremities: no ischemia, No edema, Full ROM - Abdominal General gastrointestinal: soft, non-tender, non-distended, normal bowel sounds - Integumentary Integumentary: Present: clear, warm, dry - Neurologic Neurologic: CNII-XII intact, moves all extremities Results - Labs CBC & Chem 7: 02/14/19 04:34 02/14/19 04:34 Labs: Laboratory Last Values WBC 16.3 K/mm3 (4.5-11.0) H 02/14/19 04:34 RBC 3.56 M/mm3 (3.65-5.03) L 02/14/19 04:34 Hgb 10.0 gm/dl (10.1-14.3) L 02/14/19 04:34 Hct 31.6 % (30.3-42.9) 02/14/19 04:34 MCV 89 fl (79-97) 02/14/19 04:34 MCH 28 pg (28-32) 02/14/19 04:34 MCHC 32 % (30-34) 02/14/19 04:34 RDW 19.1 % (13.2-15.2) H 02/14/19 04:34 Plt Count 238 K/mm3 (140-440) 02/14/19 04:34 Lymph % (Auto) 17.6 % (13.4-35.0) 02/03/19 18:06 [place] % (Auto) 10.1 % (0.0-7.3) H 02/03/19 18:06 Eos % (Auto) 0.1 % (0.0-4.3) 02/03/19 18:06 Baso % (Auto) 1.0 % (0.0-1.8) 02/03/19 18:06 Lymph # 1.1 K/mm3 (1.2-5.4) L 02/03/19 18:06 [place] # 0.6 K/mm3 (0.0-0.8) 02/03/19 18:06 Eos # 0.0 K/mm3 (0.0-0.4) 02/03/19 18:06 Baso # 0.1 K/mm3 (0.0-0.1) 02/03/19 18:06 Add Manual Diff Complete 02/14/19 04:34 Total Counted 100 02/14/19 04:34 Seg Neutrophils % Instructional Specialist 02/07/19 05:27 Seg Neuts % (Manual) 98.0 % (40.0-70.0) H 02/14/19 04:34 1.0 % 02/14/19 04:34 1.0 % (13.4-35.0) L 02/14/19 04:34 Reactive Lymphs % (Man) 0 % 02/14/19 04:34 0 % (0.0-7.3) 02/14/19 04:34 0 % (0.0-4.3) 02/14/19 04:34 0 % (0.0-1.8) 02/14/19 04:34 0 % 02/14/19 04:34 0 % 02/14/19 04:34 0 % 02/14/19 04:34 0 % 02/14/19 04:34 Nucleated RBC % Not Reportable 02/14/19 04:34 Seg Neutrophils # 4.5 K/mm3 (1.8-7.7) 02/03/19 18:06 Seg Neutrophils # Man 16.0 K/mm3 (1.8-7.7) H 02/14/19 04:34 Band Neutrophils # 0.2 K/mm3 02/14/19 04:34 0.2 K/mm3 (1.2-5.4) L 02/14/19 04:34 Abs React Lymphs (Man) 0.0 K/mm3 02/14/19 04:34 0.0 K/mm3 (0.0-0.8) 02/14/19 04:34 0.0 K/mm3 (0.0-0.4) 02/14/19 04:34 0.0 K/mm3 (0.0-0.1) 02/14/19 04:34 0.0 K/mm3 02/14/19 04:34 0.0 K/mm3 02/14/19 04:34 0.0 K/mm3 02/14/19 04:34 Blast Cells # 0.0 K/mm3 02/14/19 04:34 WBC Morphology Not Reportable 02/14/19 04:34 Hypersegmented Neuts Not Reportable 02/14/19 04:34 Hyposegmented Neuts Not Reportable 02/14/19 04:34 Hypogranular Neuts Not Reportable 02/14/19 04:34 Not Reportable 02/14/19 04:34 1+ 02/14/19 04:34 Not Reportable 02/14/19 04:34 Not Reportable 02/14/19 04:34 Not Reportable 02/14/19 04:34 Not Reportable 02/14/19 04:34 Consistent w auto 02/14/19 04:34 Not Reportable 02/14/19 04:34 Plt Clumps, EDTA Not Reportable 02/14/19 04:34 Not Reportable 02/14/19 04:34 Not Reportable 02/14/19 04:34 Not Reportable 02/14/19 04:34 Plt Morphology Comment Not Reportable 02/14/19 04:34 RBC Morphology Not Reportable 02/14/19 04:34 Dimorphic RBCs Not Reportable 02/14/19 04:34 Few 02/14/19 04:34 Not Reportable 02/14/19 04:34 Not Reportable 02/14/19 04:34 1+ 02/14/19 04:34 Not Reportable 02/14/19 04:34 Not Reportable 02/14/19 04:34 Not Reportable 02/14/19 04:34 Not Reportable 02/14/19 04:34 Not Reportable 02/14/19 04:34 Not Reportable 02/14/19 04:34 Not Reportable 02/14/19 04:34 Not Reportable 02/14/19 04:34 Not Reportable 02/14/19 04:34 Not Reportable 02/14/19 04:34 Not Reportable 02/14/19 04:34 Not Reportable 02/14/19 04:34 Not Reportable 02/14/19 04:34 Not Reportable 02/14/19 04:34 Not Reportable 02/14/19 04:34 Acanthocytes (Spur) Not Reportable 02/14/19 04:34 Rouleaux Not Reportable 02/14/19 04:34 Not Reportable 02/14/19 04:34 Not Reportable 02/14/19 04:34 Not Reportable 02/14/19 04:34 Not Reportable 02/14/19 04:34 Hem Pathologist Commnt No 02/14/19 04:34 PT 19.3 Sec. (12.2-14.9) H 02/03/19 19:24 INR 1.52 (0.87-1.13) H 02/03/19 19:24 APTT 30.3 Sec. (24.2-36.6) 02/03/19 19:24 POC ABG pH 7.466 (7.35-7.45) H 02/12/19 05:44 POC ABG pCO2 33.5 (35-45) L 02/12/19 05:44 POC ABG pO2 118 (80-105) H 02/12/19 05:44 POC ABG HCO3 24.1 (22-26 mml/L) 02/12/19 05:44 POC ABG Total CO2 25 (23-27mmol/L) 02/12/19 05:44 POC ABG O2 Sat 99 02/12/19 05:44 POC ABG Base Excess 0 ((-2) - (+3)mmol/L) 02/12/19 05:44 30 % 02/12/19 05:44 Sodium 143 mmol/L (137-145) 02/14/19 04:34 Potassium 4.2 mmol/L (3.6-5.0) 02/14/19 04:34 Chloride 113.1 mmol/L (98-107) H 02/14/19 04:34 Carbon Dioxide 22 mmol/L (22-30) 02/14/19 04:34 12 mmol/L 02/14/19 04:34 BUN 15 mg/dL (7-17) 02/14/19 04:34 0.4 mg/dL (0.7-1.2) L 02/14/19 04:34 Estimated GFR > 60 ml/min 02/14/19 04:34 38 % 02/14/19 04:34 Glucose 215 mg/dL (65-100) H 02/14/19 04:34 POC Glucose 147 (70-105) H 02/12/19 11:54 Lactic Acid 1.70 mmol/L (0.7-2.0) 02/05/19 04:41 Calcium 9.1 mg/dL (8.4-10.2) 02/14/19 04:34 Phosphorus 3.10 mg/dL (2.5-4.5) 02/13/19 04:33 Magnesium 1.90 mg/dL (1.7-2.3) 02/13/19 04:33 0.30 mg/dL (0.1-1.2) 02/03/19 18:08 AST 35 units/L (5-40) 02/03/19 18:08 ALT 27 units/L (7-56) 02/03/19 18:08 117 units/L (35-129) 02/03/19 18:08 0.058 ng/mL (0.00-0.029) H D 02/08/19 18:52 9.30 mg/dL (0.00-1.30) H 02/04/19 17:07 NT-Pro-B Natriuret Pep 9160 pg/mL (0-900) H 02/03/19 18:06 5.1 g/dL (6.3-8.2) L 02/03/19 18:08 2.8 g/dL (3.9-5) L 02/03/19 18:08 1.2 % 02/03/19 18:08 Triglycerides 164 mg/dL (2-149) H 02/03/19 18:08 Cholesterol 125 mg/dL (50-199) 02/03/19 18:08 75 mg/dL (50-130) 02/03/19 18:08 31 mg/dL (40-59) L 02/03/19 18:08 4.03 % 02/03/19 18:08 Yellow (Yellow) 02/03/19 02:57 Clear (Clear) 02/03/19 02:57 6.0 (5.0-7.0) 02/03/19 02:57 Ur Specific [place] 1.011 (1.003-1.030) 02/03/19 02:57 <15 mg/dl mg/dL (Negative) 02/03/19 02:57 Neg mg/dL (Negative) 02/03/19 02:57 Neg mg/dL (Negative) 02/03/19 02:57 Neg (Negative) 02/03/19 02:57 Neg (Negative) 02/03/19 02:57 Neg (Negative) 02/03/19 02:57 < 2.0 mg/dL (<2.0) 02/03/19 02:57 Ur Leukocyte Esterase Neg (Negative) 02/03/19 02:57 7.0 /HPF (0.0-6.0) H 02/03/19 02:57 8.0 /HPF (0.0-6.0) 02/03/19 02:57 U Epithel Cells (Auto) 1.0 /HPF (0-13.0) 02/03/19 02:57 2+ /HPF (Negative) 02/03/19 02:57 Hyaline Casts 22 /LPF 02/03/19 02:57 3+ /HPF 02/03/19 02:57 Blood Type A POSITIVE 02/03/19 18:06 Antibody Screen Negative 02/03/19 18:06 Crossmatch See Detail 02/03/19 18:06 Active Medications - Current Medications Current Medications: Generic Name Dose Route Start Last Admin Trade Name Freq PRN Reason Stop Dose Admin Albuterol/Ipratropium 1 ampul 02/04/19 02:00 02/14/19 08:38 Duoneb *Not For Prn Use* IH 1 ampul Q6HRT JOEL Administration Lipase/Protease/Amylase 1 each 02/08/19 16:37 Pancreaze 10,500 Unit FEEDTUBE PRN PRN For Clogged Feeding Tube Arformoterol Tartrate 15 mcg 02/04/19 14:15 02/14/19 08:38 Brovana Nebu IH 15 mcg Q12HRT JOEL Administration Budesonide 0.5 mg 02/04/19 20:00 02/14/19 08:38 Pulmicort IH 0.5 mg Q12HRT JOEL Administration Enoxaparin Sodium 30 mg 02/14/19 14:00 Lovenox SUB-Q DAILY JOEL Hydrophilic Ointment 1 applic 02/06/19 10:50 Vaseline Lip Therapy TP Q2HR PRN Dry Lips Potassium Chloride/Dextrose/Sod Cl 20 meq in 1,000 mls @ 60 mls/hr 02/12/19 19:00 02/14/19 08:16 D5w/0.45% Nacl/Kcl 20 Meq IV 60 mls/hr DIRECT JOEL Administration Methylprednisolone Sodium Succinate 20 mg 02/14/19 10:00 02/14/19 10:15 Solu-Medrol IV 02/16/19 10:01 20 mg DAILY JOEL Administration Morphine Sulfate 1 mg 02/12/19 14:00 02/13/19 13:31 Morphine IV 1 mg Q4H PRN Administration Pain, Moderate (4-6) Multi-Ingred Cream/Lotion/Oil/Oint 1 applic 02/06/19 10:50 Artificial Tears Ophth Oint OU Q4HR PRN Dry Eye(s) Ondansetron HCl 4 mg 02/03/19 20:27 02/09/19 16:37 Zofran IV 4 mg Q8H PRN Administration Nausea And Vomiting Pantoprazole Sodium 40 mg 02/09/19 19:00 02/14/19 10:15 Protonix IV 40 mg QDAY JOEL Administration Simple Syrup 15 ml 02/08/19 16:37 Simple Syrup FEEDTUBE PRN PRN Hypoglycemia Simple Syrup 30 ml 02/08/19 16:37 Simple Syrup FEEDTUBE PRN PRN Hypoglycemia Sodium Bicarbonate 325 mg 02/08/19 16:37 Sodium Bicarbonate FEEDTUBE PRN PRN For Clogged Feeding Tube Sodium Chloride 10 ml 02/03/19 22:00 02/14/19 10:16 Sodium Chloride Flush Syringe 10 Ml IV 10 ml BID JOEL Administration Sodium Chloride 10 ml 02/03/19 20:27 Sodium Chloride Flush Syringe 10 Ml IV PRN PRN LINE FLUSH Nutrition/Malnutrition Assess - Dietary Evaluation Nutrition/Malnutrition Findings: Nutrition Notes Start: 02/04/19 14:37 Freq: Status: Active Protocol: Document 02/14/19 09:52 LP (Rec: 02/14/19 09:57 LP [id number]) Nutrition Notes Initial or Follow up Reassessment Current Diagnosis Heart Failure,Respiratory Failure Other Pertinent Diagnosis AMS Current Diet NPO Labs/Tests Reviewed Pertinent Medications Reviewed Height 5 ft 3 in Weight 38.4 kg [place] Body Weight (kg) 52.27 BMI 15.0 Subjective/Other Information Pt diet advanced to pureed but has poor appetite so dobhoff has been placed. Burn Absent Trauma Absent #1 Nutrition Diagnosis Inadequate oral intake Diagnosis Progress(for reassessment Continues documentation) Is patient on ventilator? No Is Patient Ambulatory and/or Out of Bed No REE-([facility]-confined to bed) 1054.008 Kcal/Kg value to use for calculation 40 Approximate Energy Requirements Using 1536 kcal/Kg Calculation Used for Recommendations Kcal/kg Additional Notes Pro needs 1.2-2g/k-72g/ day Fluid needs 1ml/kcal Nutrition Intervention Nutrition Support: Glucerna 1.2 at 45ml/hr. Flush with 100ml q4h Kcal 1,296 Protein (gm) 65 Fluid (mL) 869 Goal #1 Meet at least 80% of kcal and protein needs Anticipated Discharge Needs: Unable to determine at this time Follow-Up By: 02/18/19 Additional Comments Follow for TF start/tolerance
[2019-02-14] MEDS: LOVENOX SUB-Q SCH (14:35)
[2019-02-15] MEDS: DUONEB *Not for PRN Use IH SCH ×4 (02:36→20:28)
[2019-02-15] MEDS: PULMICORT IH SCH ×2 (07:35→20:28)
[2019-02-15] MEDS: BROVANA NEBU IH SCH ×2 (07:35→20:28)
--- NOTE | 2019-02-15 09:48 | Progress Note ---
Assessment and Plan Assessment and plan: Severe Sepsis with Shock. Resolved. Off pressors. Follow-up blood cultures. Acute hypoxemic respiratory failure. Patient extubated, BiPAP as clinically indicated. Cecal volvulus and large Bowel obstruction. S/p exploratory laparotomy and right hemicolectomy. Followed by Gen. Surgery. Pureed diet with thin liquids as per speech therapy. Will need protein supplements once she is tolerating diet. Insert dobhoff to supplement nutrition with TF. Acute chronic obstructive pulmonary disease exacerbation. Continue steroid taper. Bronchodilators and nebulizer treatment. Pulmonary following. Acute systolic congestive heart failure exacerbation(EF 20-25%). Strict intake and output monitoring Hypokalemia, resolved Elevated serum troponin. Etiology likely secondary to #1. ? Type II [place]. Adult failure to thrive. PT/OT recommended subacute rehabilitation. Speech found no evidence of aspiration. Dysphagia diet with pured and thin liquids. Thrombocytopenia Continuing to trend platelet counts. Check HIT panel Disposition. Transfer to telemetry History Interval history: Patient is about 71-year-old female with PMHx of CHF, COPD, who was brought to the ER by EMS after a fall at home, altered mental status, respiratory distress. Per EMS patient was found in severe respiratory distress, laying on the floor and covered in her feces. According to EMS the had asked a neighbor to call EMS because the patient fell on the floor and he was unable to pick her up. He states that she had been sick for a few days, she had trouble breathing, and he had been taking a lot of "goody powder" for pain. On arrival to the ER patient was lethargic, responded to name, her blood pressure was 80/54, the temperature was 97.1, respiration was 40 BPM, she had h&h of 1.9/7.1, GI was consulted and she was admitted for acute GI bleed, acute blood loss anemia, CHF (BNP was 9100) and COPD exacerbation. respiratory failure worsened, so was intubated. She was seen by GI Physician, put on Protonix iv, but EGD not done because unstable. Patient with vomiting vomiting and CT revealed poss bowel obstruction, surg consulted and evaluated her. The patient underwent exploratory laparotomy, right hemicolectomy for cecal volvulus and large bowel obstruction. Patient was extubated on 02/04/19. Patient has some improvement and has been started on pured diet with thin liquids as per speech therapy recommendations. Dobbhoff was inserted to supplement nutrition with TF at 10 mL an hour. Physical therapy evaluated the patient and suggested subacute rehabilitation. Hospitalist Physical - Constitutional Vitals: Temp Pulse Resp BP Pulse Ox 97.9 F 99 H 18 164/76 94 02/15/19 07:53 02/15/19 07:53 02/15/19 07:53 02/15/19 07:53 02/15/19 07:53 General appearance: Present: no acute distress, cachectic - EENT Eyes: Present: PERRL, EOM intact ENT: hearing intact, clear oral mucosa, dentition normal - Neck Neck: Present: supple, normal ROM - Respiratory Respiratory effort: normal Respiratory: bilateral: CTA - Cardiovascular Rhythm: regular Heart Sounds: Present: S1 & S2. Absent: gallop, rub - Extremities Extremities: no ischemia, No edema, Full ROM - Abdominal General gastrointestinal: soft, non-tender, non-distended, normal bowel sounds - Integumentary Integumentary: Present: clear, warm, dry - Neurologic Neurologic: CNII-XII intact, moves all extremities Results - Labs CBC & Chem 7: 02/14/19 04:34 02/14/19 04:34 Labs: Laboratory Last Values WBC 16.3 K/mm3 (4.5-11.0) H 02/14/19 04:34 RBC 3.56 M/mm3 (3.65-5.03) L 02/14/19 04:34 Hgb 10.0 gm/dl (10.1-14.3) L 02/14/19 04:34 Hct 31.6 % (30.3-42.9) 02/14/19 04:34 MCV 89 fl (79-97) 02/14/19 04:34 MCH 28 pg (28-32) 02/14/19 04:34 MCHC 32 % (30-34) 02/14/19 04:34 RDW 19.1 % (13.2-15.2) H 02/14/19 04:34 Plt Count 238 K/mm3 (140-440) 02/14/19 04:34 Lymph % (Auto) 17.6 % (13.4-35.0) 02/03/19 18:06 [place] % (Auto) 10.1 % (0.0-7.3) H 02/03/19 18:06 Eos % (Auto) 0.1 % (0.0-4.3) 02/03/19 18:06 Baso % (Auto) 1.0 % (0.0-1.8) 02/03/19 18:06 Lymph # 1.1 K/mm3 (1.2-5.4) L 02/03/19 18:06 [place] # 0.6 K/mm3 (0.0-0.8) 02/03/19 18:06 Eos # 0.0 K/mm3 (0.0-0.4) 02/03/19 18:06 Baso # 0.1 K/mm3 (0.0-0.1) 02/03/19 18:06 Add Manual Diff Complete 02/14/19 04:34 Total Counted 100 02/14/19 04:34 Seg Neutrophils % Centrifugal Operator 02/07/19 05:27 Seg Neuts % (Manual) 98.0 % (40.0-70.0) H 02/14/19 04:34 1.0 % 02/14/19 04:34 1.0 % (13.4-35.0) L 02/14/19 04:34 Reactive Lymphs % (Man) 0 % 02/14/19 04:34 0 % (0.0-7.3) 02/14/19 04:34 0 % (0.0-4.3) 02/14/19 04:34 0 % (0.0-1.8) 02/14/19 04:34 0 % 02/14/19 04:34 0 % 02/14/19 04:34 0 % 02/14/19 04:34 0 % 02/14/19 04:34 Nucleated RBC % Not Reportable 02/14/19 04:34 Seg Neutrophils # 4.5 K/mm3 (1.8-7.7) 02/03/19 18:06 Seg Neutrophils # Man 16.0 K/mm3 (1.8-7.7) H 02/14/19 04:34 Band Neutrophils # 0.2 K/mm3 02/14/19 04:34 0.2 K/mm3 (1.2-5.4) L 02/14/19 04:34 Abs React Lymphs (Man) 0.0 K/mm3 02/14/19 04:34 0.0 K/mm3 (0.0-0.8) 02/14/19 04:34 0.0 K/mm3 (0.0-0.4) 02/14/19 04:34 0.0 K/mm3 (0.0-0.1) 02/14/19 04:34 0.0 K/mm3 02/14/19 04:34 0.0 K/mm3 02/14/19 04:34 0.0 K/mm3 02/14/19 04:34 Blast Cells # 0.0 K/mm3 02/14/19 04:34 WBC Morphology Not Reportable 02/14/19 04:34 Hypersegmented Neuts Not Reportable 02/14/19 04:34 Hyposegmented Neuts Not Reportable 02/14/19 04:34 Hypogranular Neuts Not Reportable 02/14/19 04:34 Not Reportable 02/14/19 04:34 1+ 02/14/19 04:34 Not Reportable 02/14/19 04:34 Not Reportable 02/14/19 04:34 Not Reportable 02/14/19 04:34 Not Reportable 02/14/19 04:34 Consistent w auto 02/14/19 04:34 Not Reportable 02/14/19 04:34 Plt Clumps, EDTA Not Reportable 02/14/19 04:34 Not Reportable 02/14/19 04:34 Not Reportable 02/14/19 04:34 Not Reportable 02/14/19 04:34 Plt Morphology Comment Not Reportable 02/14/19 04:34 RBC Morphology Not Reportable 02/14/19 04:34 Dimorphic RBCs Not Reportable 02/14/19 04:34 Few 02/14/19 04:34 Not Reportable 02/14/19 04:34 Not Reportable 02/14/19 04:34 1+ 02/14/19 04:34 Not Reportable 02/14/19 04:34 Not Reportable 02/14/19 04:34 Not Reportable 02/14/19 04:34 Not Reportable 02/14/19 04:34 Not Reportable 02/14/19 04:34 Not Reportable 02/14/19 04:34 Not Reportable 02/14/19 04:34 Not Reportable 02/14/19 04:34 Not Reportable 02/14/19 04:34 Not Reportable 02/14/19 04:34 Not Reportable 02/14/19 04:34 Not Reportable 02/14/19 04:34 Not Reportable 02/14/19 04:34 Not Reportable 02/14/19 04:34 Not Reportable 02/14/19 04:34 Acanthocytes (Spur) Not Reportable 02/14/19 04:34 Rouleaux Not Reportable 02/14/19 04:34 Not Reportable 02/14/19 04:34 Not Reportable 02/14/19 04:34 Not Reportable 02/14/19 04:34 Not Reportable 02/14/19 04:34 Hem Pathologist Commnt No 02/14/19 04:34 PT 19.3 Sec. (12.2-14.9) H 02/03/19 19:24 INR 1.52 (0.87-1.13) H 02/03/19 19:24 APTT 30.3 Sec. (24.2-36.6) 02/03/19 19:24 POC ABG pH 7.466 (7.35-7.45) H 02/12/19 05:44 POC ABG pCO2 33.5 (35-45) L 02/12/19 05:44 POC ABG pO2 118 (80-105) H 02/12/19 05:44 POC ABG HCO3 24.1 (22-26 mml/L) 02/12/19 05:44 POC ABG Total CO2 25 (23-27mmol/L) 02/12/19 05:44 POC ABG O2 Sat 99 02/12/19 05:44 POC ABG Base Excess 0 ((-2) - (+3)mmol/L) 02/12/19 05:44 30 % 02/12/19 05:44 Sodium 143 mmol/L (137-145) 02/14/19 04:34 Potassium 4.2 mmol/L (3.6-5.0) 02/14/19 04:34 Chloride 113.1 mmol/L (98-107) H 02/14/19 04:34 Carbon Dioxide 22 mmol/L (22-30) 02/14/19 04:34 12 mmol/L 02/14/19 04:34 BUN 15 mg/dL (7-17) 02/14/19 04:34 0.4 mg/dL (0.7-1.2) L 02/14/19 04:34 Estimated GFR > 60 ml/min 02/14/19 04:34 38 % 02/14/19 04:34 Glucose 215 mg/dL (65-100) H 02/14/19 04:34 POC Glucose 147 (70-105) H 02/12/19 11:54 Lactic Acid 1.70 mmol/L (0.7-2.0) 02/05/19 04:41 Calcium 9.1 mg/dL (8.4-10.2) 02/14/19 04:34 Phosphorus 3.10 mg/dL (2.5-4.5) 02/13/19 04:33 Magnesium 1.90 mg/dL (1.7-2.3) 02/13/19 04:33 0.30 mg/dL (0.1-1.2) 02/03/19 18:08 AST 35 units/L (5-40) 02/03/19 18:08 ALT 27 units/L (7-56) 02/03/19 18:08 117 units/L (35-129) 02/03/19 18:08 0.058 ng/mL (0.00-0.029) H D 02/08/19 18:52 9.30 mg/dL (0.00-1.30) H 02/04/19 17:07 NT-Pro-B Natriuret Pep 9160 pg/mL (0-900) H 02/03/19 18:06 5.1 g/dL (6.3-8.2) L 02/03/19 18:08 2.8 g/dL (3.9-5) L 02/03/19 18:08 1.2 % 02/03/19 18:08 Triglycerides 164 mg/dL (2-149) H 02/03/19 18:08 Cholesterol 125 mg/dL (50-199) 02/03/19 18:08 75 mg/dL (50-130) 02/03/19 18:08 31 mg/dL (40-59) L 02/03/19 18:08 4.03 % 02/03/19 18:08 Yellow (Yellow) 02/03/19 02:57 Clear (Clear) 02/03/19 02:57 6.0 (5.0-7.0) 02/03/19 02:57 Ur Specific [place] 1.011 (1.003-1.030) 02/03/19 02:57 <15 mg/dl mg/dL (Negative) 02/03/19 02:57 Neg mg/dL (Negative) 02/03/19 02:57 Neg mg/dL (Negative) 02/03/19 02:57 Neg (Negative) 02/03/19 02:57 Neg (Negative) 02/03/19 02:57 Neg (Negative) 02/03/19 02:57 < 2.0 mg/dL (<2.0) 02/03/19 02:57 Ur Leukocyte Esterase Neg (Negative) 02/03/19 02:57 7.0 /HPF (0.0-6.0) H 02/03/19 02:57 8.0 /HPF (0.0-6.0) 02/03/19 02:57 U Epithel Cells (Auto) 1.0 /HPF (0-13.0) 02/03/19 02:57 2+ /HPF (Negative) 02/03/19 02:57 Hyaline Casts 22 /LPF 02/03/19 02:57 3+ /HPF 02/03/19 02:57 Blood Type A POSITIVE 02/03/19 18:06 Antibody Screen Negative 02/03/19 18:06 Crossmatch See Detail 02/03/19 18:06 Active Medications - Current Medications Current Medications: Generic Name Dose Route Start Last Admin Trade Name Freq PRN Reason Stop Dose Admin Albuterol/Ipratropium 1 ampul 02/04/19 02:00 02/15/19 07:36 Duoneb *Not For Prn Use* IH Not Given Q6HRT JOEL Lipase/Protease/Amylase 1 each 02/08/19 16:37 Pancrebrant Smith 10,500 Unit FEEDTUBE PRN PRN For Clogged Feeding Tube Arformoterol Tartrate 15 mcg 02/04/19 14:15 02/15/19 07:35 Brovana Nebu IH 15 mcg Q12HRT JOEL Administration Budesonide 0.5 mg 02/04/19 20:00 02/15/19 07:35 Pulmicort IH 0.5 mg Q12HRT JOEL Administration Enoxaparin Sodium 30 mg 02/14/19 14:00 02/14/19 14:35 Lovenox SUB-Q 30 mg DAILY JOEL Administration Hydrophilic Ointment 1 applic 02/06/19 10:50 Vaseline Lip Therapy TP Q2HR PRN Dry Lips Potassium Chloride/Dextrose/Sod Cl 20 meq in 1,000 mls @ 60 mls/hr 02/12/19 19:00 02/14/19 08:16 D5w/0.45% Nacl/Kcl 20 Meq IV 60 mls/hr DIRECT JOEL Administration Methylprednisolone Sodium Succinate 20 mg 02/14/19 10:00 02/14/19 10:15 Solu-Medrol IV 02/16/19 10:01 20 mg DAILY JOEL Administration Morphine Sulfate 1 mg 02/12/19 14:00 02/13/19 13:31 Morphine IV 1 mg Q4H PRN Administration Pain, Moderate (4-6) Multi-Ingred Cream/Lotion/Oil/Oint 1 applic 02/06/19 10:50 Artificial Tears Ophth Oint OU Q4HR PRN Dry Eye(s) Ondansetron HCl 4 mg 02/03/19 20:27 02/09/19 16:37 Zofran IV 4 mg Q8H PRN Administration Nausea And Vomiting Pantoprazole Sodium 40 mg 02/09/19 19:00 02/14/19 10:15 Protonix IV 40 mg QDAY JOEL Administration Simple Syrup 15 ml 02/08/19 16:37 Simple Syrup FEEDTUBE PRN PRN Hypoglycemia Simple Syrup 30 ml 02/08/19 16:37 Simple Syrup FEEDTUBE PRN PRN Hypoglycemia Sodium Bicarbonate 325 mg 02/08/19 16:37 Sodium Bicarbonate FEEDTUBE PRN PRN For Clogged Feeding Tube Sodium Chloride 10 ml 02/03/19 22:00 02/14/19 21:58 Sodium Chloride Flush Syringe 10 Ml IV 10 ml BID JOEL Administration Sodium Chloride 10 ml 02/03/19 20:27 Sodium Chloride Flush Syringe 10 Ml IV PRN PRN LINE FLUSH Nutrition/Malnutrition Assess - Dietary Evaluation Nutrition/Malnutrition Findings: Nutrition Notes Start: 02/04/19 14:37 Freq: Status: Active Protocol: Document 02/14/19 09:52 LP (Rec: 02/14/19 09:57 LP [id number]) Nutrition Notes Initial or Follow up Reassessment Current Diagnosis Heart Failure,Respiratory Failure Other Pertinent Diagnosis AMS Current Diet NPO Labs/Tests Reviewed Pertinent Medications Reviewed Height 5 ft 3 in Weight 38.4 kg [place] Body Weight (kg) 52.27 BMI 15.0 Subjective/Other Information Pt diet advanced to pureed but has poor appetite so dobhoff has been placed. Burn Absent Trauma Absent #1 Nutrition Diagnosis Inadequate oral intake Diagnosis Progress(for reassessment Continues documentation) Is patient on ventilator? No Is Patient Ambulatory and/or Out of Bed No REE-([place] [place]-confined to bed) 1054.008 Kcal/Kg value to use for calculation 40 Approximate Energy Requirements Using 1536 kcal/Kg Calculation Used for Recommendations Kcal/kg Additional Notes Pro needs 1.2-2g/k-72g/ day Fluid needs 1ml/kcal Nutrition Intervention Nutrition Support: Glucerna 1.2 at 45ml/hr. Flush with 100ml q4h Kcal 1,296 Protein (gm) 65 Fluid (mL) 869 Goal #1 Meet at least 80% of kcal and protein needs Anticipated Discharge Needs: Unable to determine at this time Follow-Up By: 02/18/19 Additional Comments Follow for TF start/tolerance
[2019-02-15] MEDS: SOLU-Medrol IV SCH (11:09)
[2019-02-15] MEDS: PROTONIX IV SCH (11:10)
[2019-02-15] MEDS: SODIUM CHLORIDE FLUSH SYRINGE 10 ML IV SCH ×2 (11:10→23:31)
[2019-02-15] MEDS: MORPHINE IV PRN (11:16)
--- NOTE | 2019-02-15 11:55 | Progress Note ---
Assessment and Plan 68 yo F s/p exploratory laparotomy, right hemicolectomy POD4, for cecal volvulus and large bowel obstruction 1. ARF - now off vent 2. anemia 3. GIB 4. n/v, SBO 5. hx CHF, EF 20-25% Plan: 1. may advance TF as tolerated to goal 2. pureed diet with thin liquids as per speech therapy. Will need protein supplements once she is tolerating diet 3. dc IVF 4. protonix IV 5. DVT ppx 6. prn PO pain control 7. OOB/PT 8. stat CBC 9. Will contact GI service - melena could be related to old blood from ileocolic staple line but unlikely. Patient was admitted with anemia and possible UGIB but was unable to undergo EGD due to instability Will likely need rehab upon dc. Discussed plan with RN. Thank you, please call with questions. Subjective Date of service: 02/15/19 Narrative: Pt seen and examined. More verbal today. Overnight she passed a black stool and this am she had a large BM mixed with dark red blood. No n/v. No f/c. Objective Vital Signs - 12hr 02/14/19 02/15/19 02/15/19 23:57 02:39 02:47 Temperature 98.3 F Pulse Rate Pulse Rate [ 86 89 Bilateral Bases ] Respiratory 18 Rate Respiratory 18 18 Rate [Bilateral Bases] Blood Pressure 148/86 O2 Sat by Pulse Oximetry 02/15/19 02/15/19 04:27 07:53 Temperature 98.0 F 97.9 F Pulse Rate 99 H Pulse Rate [ Bilateral Bases ] Respiratory 18 18 Rate Respiratory Rate [Bilateral Bases] Blood Pressure 143/89 164/76 O2 Sat by Pulse 94 Oximetry - General physical appearance Narrative Exam: Gen: Awake and alert. NAD ENT: dobhoff in place with TF running CV: S1, s2+ resp; even and unlabored Abd: soft, NT, ND. incision c/d/i Ext: no c/c/e - Labs 02/14/19 04:34 02/14/19 04:34
--- NOTE | 2019-02-15 13:04 | Progress Note ---
Assessment and Plan Acute hypoxemic respiratory failure, on continuous noninvasive ventilation. Acute intussusception Symptomatic anemia with positive stool guaiac. Acute chronic obstructive pulmonary disease exacerbation. Possible acute gastrointestinal bleed. Acute congestive heart failure exacerbation. Seceer Sepsis with Shock Systemic inflammatory response syndrome. Hypokalemia. Elevated serum troponin. Adult failure to thrive. - continue enteral nutrition at goal rate as tolerated - ST evaluation ongoing and advancing oral diet slowly - post-op day # 4 and no significant zelalem-op complications - continue wound care per WCT / RN - continue conservative volume management strategies (EF 20-25%) - continue to follow clinically off AB's - prn diuresis - prn BIPAP - continue to wean supplemental oxygen to keep O2 sats >/= 88-90% - tapering off systemic steroids - continue bronchodilators with pulmonary hygiene per RT - Strict intake and output monitoring - Maintenance of sleep -wake cycle - Mobility protocol for pressure ulcer prophylaxis - continue GI & VTE prophylaxis - Influenza and pneumonia vaccination per protocol CODE STATUS: FULL CODE Subjective Date of service: 02/15/19 Principal diagnosis: Ac hypoxemic Resp failure; Severe Anemia; AE-COPD; G.I. Bleed; Septic Shock Interval history: Patient is seen today for: Acute hypoxemic Resp failure; Symptomatic anemia; AE- COPD; G.I. Bleed; Acute congestive heart failure exacerbation; Hypotension; SIRS Seen and examined at bedside; 24-hour events reviewed; nursing and respiratory care staff consulted; no adverse overnight events reported to me; resting peacefully in bed; tolerating tube feeds so far; still weak and SOB; No N/V/F/C; denies acute chest pains Objective Vital Signs - 12hr 02/15/19 02/15/19 02/15/19 02:39 02:47 04:27 Temperature 98.0 F Pulse Rate Pulse Rate [ 86 89 Bilateral Bases ] Respiratory 18 Rate Respiratory 18 18 Rate [Bilateral Bases] Blood Pressure 143/89 O2 Sat by Pulse Oximetry 02/15/19 02/15/19 07:53 12:18 Temperature 97.9 F 97.9 F Pulse Rate 99 H 86 Pulse Rate [ Bilateral Bases ] Respiratory 18 16 Rate Respiratory Rate [Bilateral Bases] Blood Pressure 164/76 161/90 O2 Sat by Pulse 94 93 Oximetry Constitutional: appears uncomfortable, other (elderly looking petite CF normocephalicin no distress, chronically ill looking, cachexia) Eyes: non-icteric ENT: oropharynx moist, other (on supplemental oxygen via nasal canula) Neck: supple, no lymphadenopathy, JVD, other (no thyromegaly) Effort: mildly labored Ascultation: Bilateral: diminished breath sounds, rhonchi Percussion: Bilateral: not dull Cardiovascular: irregular rhythm, other (S1,S2, ) Gastrointestinal: hypoactive bowel sounds, soft, non-tender, non-distended, other (no palpable HSM) Integumentary: normal Extremities: no cyanosis, pink and warm, pulses normal, no ischemia or petechiae Neurologic: non-focal exam (grossly), pupils equal and round, CN II-XII normal, other (weak) Psychiatric: mood appropriate, affect normal CBC and BMP: 02/16/19 04:47 02/16/19 04:47 ABG, PT/INR, D-dimer: ABG POC ABG pH 7.466 (7.35-7.45) H 02/12/19 05:44 POC ABG pCO2 33.5 (35-45) L 02/12/19 05:44 POC ABG pO2 118 (80-105) H 02/12/19 05:44 POC ABG HCO3 24.1 (22-26 mml/L) 02/12/19 05:44 POC ABG Total CO2 25 (23-27mmol/L) 02/12/19 05:44 POC ABG O2 Sat 99 02/12/19 05:44 PT/INR, D-dimer PT 19.3 Sec. (12.2-14.9) H 02/03/19 19:24 INR 1.52 (0.87-1.13) H 02/03/19 19:24 Abnormal lab findings: Abnormal Labs 02/03/19 02/03/19 02/03/19 02:57 18:06 18:06 WBC RBC 0.88 L Hgb 1.9 L* Hct 7.1 L* MCH 22 L MCHC 27 L RDW 23.3 H Plt Count 489 H [place] % (Auto) 10.1 H Lymph # 1.1 L Seg Neutrophils % 71.2 H Seg Neuts % (Manual) Lymphocytes % (Manual) Seg Neutrophils # Man Lymphocytes # (Manual) PT INR POC ABG pH POC ABG pCO2 POC ABG pO2 Sodium Potassium Chloride Carbon Dioxide BUN Creatinine Glucose POC Glucose Lactic Acid Calcium Phosphorus Troponin T C-Reactive Protein NT-Pro-B Natriuret Pep 9160 H Total Protein Albumin Triglycerides HDL Cholesterol Urine WBC (Auto) 7.0 H Crossmatch 02/03/19 02/03/19 02/03/19 18:06 18:08 18:08 WBC RBC Hgb Hct MCH MCHC RDW Plt Count [place] % (Auto) Lymph # Seg Neutrophils % Seg Neuts % (Manual) Lymphocytes % (Manual) Seg Neutrophils # Man Lymphocytes # (Manual) PT INR POC ABG pH POC ABG pCO2 POC ABG pO2 Sodium Potassium 3.3 L Chloride Carbon Dioxide 17 L BUN Creatinine Glucose POC Glucose Lactic Acid 9.90 H* Calcium 7.9 L Phosphorus Troponin T 0.134 H* C-Reactive Protein NT-Pro-B Natriuret Pep Total Protein 5.1 L Albumin 2.8 L Triglycerides 164 H HDL Cholesterol 31 L Urine WBC (Auto) Crossmatch See Detail 02/03/19 02/03/19 02/03/19 19:24 19:24 19:24 WBC RBC Hgb Hct MCH MCHC RDW Plt Count [place] % (Auto) Lymph # Seg Neutrophils % Seg Neuts % (Manual) Lymphocytes % (Manual) Seg Neutrophils # Man Lymphocytes # (Manual) PT 19.3 H INR 1.52 H POC ABG pH POC ABG pCO2 POC ABG pO2 Sodium Potassium Chloride Carbon Dioxide BUN Creatinine Glucose POC Glucose Lactic Acid 6.30 H* Calcium Phosphorus Troponin T 0.139 H* C-Reactive Protein NT-Pro-B Natriuret Pep Total Protein Albumin Triglycerides HDL Cholesterol Urine WBC (Auto) Crossmatch 02/03/19 02/03/19 02/04/19 20:30 23:36 01:18 WBC RBC Hgb Hct MCH MCHC RDW Plt Count [place] % (Auto) Lymph # Seg Neutrophils % Seg Neuts % (Manual) Lymphocytes % (Manual) Seg Neutrophils # Man Lymphocytes # (Manual) PT INR POC ABG pH 7.515 H POC ABG pCO2 POC ABG pO2 121 H Sodium Potassium Chloride Carbon Dioxide BUN Creatinine Glucose POC Glucose Lactic Acid 6.50 H* 5.70 H* Calcium Phosphorus Troponin T C-Reactive Protein NT-Pro-B Natriuret Pep Total Protein Albumin Triglycerides HDL Cholesterol Urine WBC (Auto) Crossmatch 02/04/19 02/04/1902/04/19 04:35 04:35 04:35 WBC 17.5 H RBC Hgb Hct MCH 27 L MCHC RDW 15.9 H Plt Count [place] % (Auto) Lymph # Seg Neutrophils % Seg Neuts % (Manual) 96.0 H Lymphocytes % (Manual) 1.0 L Seg Neutrophils # Man 16.8 H Lymphocytes # (Manual) 0.2 L PT INR POC ABG pH POC ABG pCO2 POC ABG pO2 Sodium 147 H Potassium 3.2 L Chloride Carbon Dioxide 21 L BUN Creatinine Glucose 170 H POC Glucose Lactic Acid 3.60 H* Calcium 7.9 L Phosphorus Troponin T C-Reactive Protein NT-Pro-B Natriuret Pep Total Protein Albumin Triglycerides HDL Cholesterol Urine WBC (Auto) Crossmatch 02/04/19 02/04/19 02/04/19 10:59 17:07 17:07 WBC RBC Hgb Hct MCH MCHC RDW Plt Count [place] % (Auto) Lymph # Seg Neutrophils % Seg Neuts % (Manual) Lymphocytes % (Manual) Seg Neutrophils # Man Lymphocytes # (Manual) PT INR POC ABG pH POC ABG pCO2 POC ABG pO2 Sodium Potassium 3.1 L Chloride Carbon Dioxide BUN Creatinine Glucose POC Glucose Lactic Acid 2.30 H* Calcium Phosphorus Troponin T C-Reactive Protein 9.30 H NT-Pro-B Natriuret Pep Total Protein Albumin Triglycerides HDL Cholesterol Urine WBC (Auto) Crossmatch 02/04/19 02/04/19 02/05/19 17:15 21:04 00:05 WBC RBC Hgb Hct MCH MCHC RDW Plt Count [place] % (Auto) Lymph # Seg Neutrophils % Seg Neuts % (Manual) Lymphocytes % (Manual) Seg Neutrophils # Man Lymphocytes # (Manual) PT INR POC ABG pH 7.310 L POC ABG pCO2 POC ABG pO2 68 L Sodium Potassium Chloride Carbon Dioxide BUN Creatinine Glucose POC Glucose Lactic Acid 2.40 H* 2.70 H* Calcium Phosphorus Troponin T C-Reactive Protein NT-Pro-B Natriuret Pep Total Protein Albumin Triglycerides HDL Cholesterol Urine WBC (Auto) Crossmatch 02/05/19 02/05/19 02/05/19 04:41 04:41 12:54 WBC 15.1 H RBC Hgb Hct MCH MCHC RDW 16.6 H Plt Count [place] % (Auto) Lymph # Seg Neutrophils % Seg Neuts % (Manual) 90.0 H Lymphocytes % (Manual) 2.0 L Seg Neutrophils # Man 13.6 H Lymphocytes # (Manual) 0.3 L PT INR POC ABG pH POC ABG pCO2 POC ABG pO2 74 L Sodium 147 H Potassium Chloride 114.1 H Carbon Dioxide 20 L BUN 19 H Creatinine Glucose 192 H POC Glucose Lactic Acid Calcium 7.4 L Phosphorus Troponin T C-Reactive Protein NT-Pro-B Natriuret Pep Total Protein Albumin Triglycerides HDL Cholesterol Urine WBC (Auto) Crossmatch 02/06/19 02/06/19 02/06/19 01:46 11:42 11:42 WBC 21.1 H RBC Hgb Hct MCH MCHC RDW 17.0 H Plt Count [place] % (Auto) Lymph # Seg Neutrophils % Seg Neuts % (Manual) Lymphocytes % (Manual) Seg Neutrophils # Man Lymphocytes # (Manual) PT INR POC ABG pH POC ABG pCO2 34.4 L POC ABG pO2 56 L Sodium 151 H Potassium Chloride 112.1 H Carbon Dioxide BUN Creatinine Glucose 187 H POC Glucose Lactic Acid Calcium 8.1 L Phosphorus Troponin T C-Reactive Protein NT-Pro-B Natriuret Pep Total Protein Albumin Triglycerides HDL Cholesterol Urine WBC (Auto) Crossmatch 02/06/19 02/07/19 02/07/19 12:04 04:26 05:27 WBC 21.7 H RBC Hgb Hct MCH MCHC RDW 17.6 H Plt Count [place] % (Auto) Lymph # Seg Neutrophils % Seg Neuts % (Manual) 98.0 H Lymphocytes % (Manual) 1.0 L Seg Neutrophils # Man 21.3 H Lymphocytes # (Manual) 0.2 L PT INR POC ABG pH 7.481 H POC ABG pCO2 31.3 L POC ABG pO2 63 L 50 L Sodium Potassium Chloride Carbon Dioxide BUN Creatinine Glucose POC Glucose Lactic Acid Calcium Phosphorus Troponin T C-Reactive Protein NT-Pro-B Natriuret Pep Total Protein Albumin Triglycerides HDL Cholesterol Urine WBC (Auto) Crossmatch 02/07/19 02/07/19 02/07/19 05:27 05:29 23:07 WBC RBC Hgb Hct MCH MCHC RDW Plt Count [place] % (Auto) Lymph # Seg Neutrophils % Seg Neuts % (Manual) Lymphocytes % (Manual) Seg Neutrophils # Man Lymphocytes # (Manual) PT INR POC ABG pH POC ABG pCO2 POC ABG pO2 Sodium 147 H Potassium Chloride 108.4 H Carbon Dioxide BUN Creatinine 0.6 L Glucose 184 H POC Glucose 188 H 172 H Lactic Acid Calcium 8.3 L Phosphorus 1.50 L Troponin T C-Reactive Protein NT-Pro-B Natriuret Pep Total Protein Albumin Triglycerides HDL Cholesterol Urine WBC (Auto) Crossmatch 02/08/19 02/08/19 02/08/19 04:26 04:26 11:50 WBC 18.8 H RBC Hgb Hct MCH MCHC RDW 17.7 H Plt Count [place] % (Auto) Lymph # Seg Neutrophils % Seg Neuts % (Manual) Lymphocytes % (Manual) Seg Neutrophils # Man Lymphocytes # (Manual) PT INR POC ABG pH POC ABG pCO2 POC ABG pO2 Sodium Potassium Chloride Carbon Dioxide BUN 19 H Creatinine 0.6 L Glucose 190 H POC Glucose 185 H Lactic Acid Calcium 8.2 L Phosphorus Troponin T C-Reactive Protein NT-Pro-B Natriuret Pep Total Protein Albumin Triglycerides HDL Cholesterol Urine WBC (Auto) Crossmatch 02/08/19 02/08/19 02/08/19 12:01 17:44 18:52 WBC RBC Hgb Hct MCH MCHC RDW Plt Count [place] % (Auto) Lymph # Seg Neutrophils % Seg Neuts % (Manual) Lymphocytes % (Manual) Seg Neutrophils # Man Lymphocytes # (Manual) PT INR POC ABG pH POC ABG pCO2 POC ABG pO2 Sodium Potassium Chloride Carbon Dioxide BUN Creatinine Glucose POC Glucose 186 H 143 H Lactic Acid Calcium Phosphorus Troponin T 0.058 H D C-Reactive Protein NT-Pro-B Natriuret Pep Total Protein Albumin Triglycerides HDL Cholesterol Urine WBC (Auto) Crossmatch 02/08/19 02/09/19 02/09/19 23:24 03:57 03:57 WBC 20.3 H RBC Hgb Hct MCH MCHC RDW 18.0 H Plt Count 92 L [place] % (Auto) Lymph # Seg Neutrophils % Seg Neuts % (Manual) Lymphocytes % (Manual) Seg Neutrophils # Man Lymphocytes # (Manual) PT INR POC ABG pH POC ABG pCO2 POC ABG pO2 Sodium Potassium Chloride Carbon Dioxide BUN 29 H Creatinine 0.5 L Glucose 172 H POC Glucose 205 H Lactic Acid Calcium Phosphorus Troponin T C-Reactive Protein NT-Pro-B Natriuret Pep Total Protein Albumin Triglycerides HDL Cholesterol Urine WBC (Auto) Crossmatch 02/09/19 02/09/19 02/09/19 04:49 12:11 17:27 WBC RBC Hgb Hct MCH MCHC RDW Plt Count [place] % (Auto) Lymph # Seg Neutrophils % Seg Neuts % (Manual) Lymphocytes % (Manual) Seg Neutrophils # Man Lymphocytes # (Manual) PT INR POC ABG pH 7.473 H POC ABG pCO2 POC ABG pO2 Sodium Potassium Chloride Carbon Dioxide BUN Creatinine Glucose POC Glucose 136 H 149 H Lactic Acid Calcium Phosphorus Troponin T C-Reactive Protein NT-Pro-B Natriuret Pep Total Protein Albumin Triglycerides HDL Cholesterol Urine WBC (Auto) Crossmatch 02/10/19 02/10/19 02/10/19 04:59 04:59 04:59 WBC 16.5 H RBC Hgb Hct MCH MCHC RDW 17.7 H Plt Count 94 L [place] % (Auto) Lymph # Seg Neutrophils % Seg Neuts % (Manual) Lymphocytes % (Manual) Seg Neutrophils # Man Lymphocytes # (Manual) PT INR POC ABG pH POC ABG pCO2 POC ABG pO2 Sodium Potassium Chloride Carbon Dioxide BUN 31 H 31 H Creatinine 0.6 L 0.6 L Glucose 149 H 152 H POC Glucose Lactic Acid Calcium Phosphorus Troponin T C-Reactive Protein NT-Pro-B Natriuret Pep Total Protein Albumin Triglycerides HDL Cholesterol Urine WBC (Auto) Crossmatch 02/10/19 02/11/19 02/11/19 05:10 00:06 10:26 WBC 16.4 H RBC Hgb Hct MCH MCHC RDW 18.3 H Plt Count 111 L [place] % (Auto) Lymph # Seg Neutrophils % Seg Neuts % (Manual) Lymphocytes % (Manual) Seg Neutrophils # Man Lymphocytes # (Manual) PT INR POC ABG pH 7.518 H 7.482 H POC ABG pCO2 POC ABG pO2 173 H 119 H Sodium Potassium Chloride Carbon Dioxide BUN Creatinine Glucose POC Glucose Lactic Acid Calcium Phosphorus Troponin T C-Reactive Protein NT-Pro-B Natriuret Pep Total Protein Albumin Triglycerides HDL Cholesterol Urine WBC (Auto) Crossmatch 02/11/19 02/12/19 02/12/19 10:26 04:19 04:19 WBC 16.8 H RBC 3.44 L Hgb 9.6 L Hct 30.2 L D MCH MCHC RDW 18.0 H Plt Count 131 L [place] % (Auto) Lymph # Seg Neutrophils % Seg Neuts % (Manual) Lymphocytes % (Manual) Seg Neutrophils # Man Lymphocytes # (Manual) PT INR POC ABG pH POC ABG pCO2 POC ABG pO2 Sodium 148 H 147 H Potassium Chloride 112.7 H 114.7 H Carbon Dioxide BUN 23 H Creatinine 0.5 L 0.5 L Glucose 195 H 152 H POC Glucose Lactic Acid Calcium Phosphorus Troponin T C-Reactive Protein NT-Pro-B Natriuret Pep Total Protein Albumin Triglycerides HDL Cholesterol Urine WBC (Auto) Crossmatch 02/12/19 02/12/19 02/13/19 05:44 11:54 04:33 WBC 16.7 H RBC 3.24 L Hgb 9.1 L Hct 28.7 L MCH MCHC RDW 18.5 H Plt Count [place] % (Auto) Lymph # Seg Neutrophils % Seg Neuts % (Manual) 95.0 H Lymphocytes % (Manual) 3.0 L Seg Neutrophils # Man 15.9 H Lymphocytes # (Manual) 0.5 L PT INR POC ABG pH 7.466 H POC ABG pCO2 33.5 L POC ABG pO2 118 H Sodium Potassium Chloride Carbon Dioxide BUN Creatinine Glucose POC Glucose 147 H Lactic Acid Calcium Phosphorus Troponin T C-Reactive Protein NT-Pro-B Natriuret Pep Total Protein Albumin Triglycerides HDL Cholesterol Urine WBC (Auto) Crossmatch 02/13/19 02/14/19 02/14/19 04:33 04:34 04:34 WBC 16.3 H RBC 3.56 L Hgb 10.0 L Hct MCH MCHC RDW 19.1 H Plt Count [place] % (Auto) Lymph # Seg Neutrophils % Seg Neuts % (Manual) 98.0 H Lymphocytes % (Manual) 1.0 L Seg Neutrophils # Man 16.0 H Lymphocytes # (Manual) 0.2 L PT INR POC ABG pH POC ABG pCO2 POC ABG pO2 Sodium Potassium Chloride 113.7 H 113.1 H Carbon Dioxide BUN Creatinine 0.4 L 0.4 L Glucose 193 H 215 H POC Glucose Lactic Acid Calcium Phosphorus Troponin T C-Reactive Protein NT-Pro-B Natriuret Pep Total Protein Albumin Triglycerides HDL Cholesterol Urine WBC (Auto) Crossmatch Allied health notes reviewed: nursing
--- NOTE | 2019-02-15 14:01 | Gastroenterology Progress Note ---
<PAOLA HAGAN - Last Filed: 02/15/19 14:04> Assessment and Plan 1.GI bleed 2.melena 3.anemia -H/H 10.0/31.6-trending up -continue to monitor H/H and transfuse as needed -BM x 1 this am with black stool per nursing. No hematemesis, hematochezia or further signs of bleeding this afternoon. -etiology unclear- possibly sequela given stable H/H (ulcer vs old blood from ileocolic staple line?). 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 BM x 1 this am per nursing with black stool. No further active signs of bleeding this afternoon. No hematemesis or hematochezia. No evidence of abd pain or N/V. Tolerating TFs via Dobhoff. Objective - Constitutional Vitals: Temp Pulse Resp BP Pulse Ox 97.9 F 86 16 161/90 93 02/15/19 12:18 02/15/19 12:18 02/15/19 12:18 02/15/19 12:18 02/15/19 12:18 General appearance: no acute distress - EENT ENT: other (+dobhoff) - Respiratory Respiratory: bilateral: diminished - Cardiovascular Rhythm: regular - Gastrointestinal General gastrointestinal: Present: soft, non-distended, normal bowel sounds, other (+incision C/D/I) - Labs CBC & Chem 7: 02/14/19 04:34 02/14/19 04:34 <DEE GRAHAM - Last Filed: 02/15/19 17:23> Assessment and Plan pt seen and examined. Agree with note above. repeat H/H stable after episode of black stool/melena. cont IV PPI; if further episodes of bleeding/melena, obtain CTA as above. Objective - Constitutional Vitals: Temp Pulse Resp BP Pulse Ox 98.6 F 96 H 18 142/94 93 02/15/19 16:49 02/15/19 16:49 02/15/19 16:49 02/15/19 16:49 02/15/19 16:49 - Labs CBC & Chem 7: 02/15/19 14:30 02/14/19 04:34 Labs: Laboratory Results - last 24 hr 02/15/19 14:30 WBC 24.2 H RBC 3.86 Hgb 10.6 Hct 34.0 MCV 88 MCH 27 L MCHC 31 RDW 19.6 H Plt Count 322
[2019-02-15 14:48] LABS: Hemoglobin 10.6 gm/dl (10.1-14.3); Mean Corpuscular HGB Conc 31 % (30-34); Mean Corpuscular Volume 88 fl (79-97); Platelet Count 322 K/mm3 (140-440); Red Blood Count 3.86 M/mm3 (3.65-5.03); Red Cell Distribution Width 19.6 % (13.2-15.2)
[2019-02-15] MEDS: LOVENOX SUB-Q SCH (16:28)
[2019-02-15] MEDS: ULTRAM FEEDTUBE PRN (18:29)
[2019-02-16] MEDS: DUONEB *Not for PRN Use IH SCH ×4 (02:03→19:51)
[2019-02-16 06:17] LABS: Hematocrit 29.3 % (30.3-42.9); Hemoglobin 9.4 gm/dl (10.1-14.3); Mean Corpuscular HGB Conc 32 % (30-34); Mean Corpuscular Volume 88 fl (79-97); Platelet Count 329 K/mm3 (140-440); Red Blood Count 3.31 M/mm3 (3.65-5.03)
[2019-02-16 06:22] LABS: Red Cell Distribution Width 20.5 % (13.2-15.2)
[2019-02-16 06:37] LABS: BUN/Creatinine Ratio 47; Blood Urea Nitrogen 14 mg/dL (7-17); Calcium 9.2 mg/dL (8.4-10.2); Hemolysis Index 6
[2019-02-16 07:29] LABS: Band Neutrophils # (Manual) 1.6 K/mm3; Basophils % (Manual) 0 % (0.0-1.8); Eosinophils % (Manual) 0 % (0.0-4.3); Total Cells Counted 100
[2019-02-16 07:30] LABS: Anisocytosis 1+
[2019-02-16 07:31] LABS: Dimorphic RBC Yes; Platelet Estimate Consistent w Auto
[2019-02-16] MEDS: BROVANA NEBU IH SCH ×2 (08:44→20:25)
[2019-02-16] MEDS: PULMICORT IH SCH ×2 (08:44→19:50)
--- NOTE | 2019-02-16 09:41 | Progress Note ---
Assessment and Plan - Patient Problems (1) Cecal volvulus Current Visit: Yes Status: Acute Plan to address problem: 68 yo F s/p exploratory laparotomy, right hemicolectomy POD5, for cecal volvulus and large bowel obstruction 1. ARF - now off vent 2. anemia 3. GIB - no further melena/bloody BM 4. n/v, SBO 5. hx CHF, EF 20-25% Plan: 1. may advance TF as tolerated to goal (currently at 30cc/hr) 2. pureed diet with thin liquids as per speech therapy. Will need protein supplements once she is tolerating diet 3. dc IVF when taking more PO 4. protonix IV 5. DVT ppx 6. prn PO pain control 7. OOB/PT 8. Labs in AM. 9. CXR for increased work of breathing. PNA? may account for clinical appearance and WBC. Will likely need rehab upon dc. Discussed plan with RN. Subjective Date of service: 02/16/19 Patient Reports: Positive: no bowel movement (today), other (wants to be left alone. Has pain in lower abdomen.). Negative: nausea, vomiting Objective Vital Signs - 12hr 02/15/19 02/15/19 02/16/19 22:00 23:18 02:00 Temperature 97.6 F Pulse Rate 96 H 84 Pulse Rate [ 89 Anterior Bilateral Throughout] Respiratory 20 Rate Respiratory 20 Rate [Anterior Bilateral Throughout] Blood Pressure 123/73 O2 Sat by Pulse 95 Oximetry 02/16/19 02/16/19 02/16/19 02:14 04:54 08:14 Temperature 97.9 F 98.9 F Pulse Rate 82 92 H Pulse Rate [ 90 Anterior Bilateral Throughout] Respiratory 20 18 Rate Respiratory 20 Rate [Anterior Bilateral Throughout] Blood Pressure 131/64 143/82 O2 Sat by Pulse 84 88 Oximetry 02/16/19 02/16/19 02/16/19 08:40 08:43 08:49 Temperature Pulse Rate Pulse Rate [ 94 H 94 H Anterior Bilateral Throughout] Respiratory Rate Respiratory 20 20 Rate [Anterior Bilateral Throughout] Blood Pressure O2 Sat by Pulse 90 Oximetry - General physical appearance no distress, cathetic, other (elderly female. Minimally interactive. Appears exhausted.) - Respiratory normal expansion, other (increased work of breathing.) - Abdomen soft, tender (mild in lower abdomen), bowel sounds hypoactive, distended (mild), not guarding, not rigid, surgical scars (C/d/I) - Integumentary no rash, no growths, no abnormal pigmentation - Labs 02/16/19 04:47 02/16/19 04:47 Diabetes panel 02/16/19 Range/Units 04:47 Sodium 138 (137-145) mmol/L Potassium 4.3 (3.6-5.0) mmol/L Chloride 110.0 H (98-107) mmol/L Carbon Dioxide 18 L (22-30) mmol/L BUN 14 (7-17) mg/dL Creatinine 0.3 L (0.7-1.2) mg/dL Glucose 115 H (65-100) mg/dL Calcium 9.2 (8.4-10.2) mg/dL Calcium panel 02/16/19 Range/Units 04:47 Calcium 9.2 (8.4-10.2) mg/dL Pituitary panel 02/16/19 Range/Units 04:47 Sodium 138 (137-145) mmol/L Potassium 4.3 (3.6-5.0) mmol/L Chloride 110.0 H (98-107) mmol/L Carbon Dioxide 18 L (22-30) mmol/L BUN 14 (7-17) mg/dL Creatinine 0.3 L (0.7-1.2) mg/dL Glucose 115 H (65-100) mg/dL Calcium 9.2 (8.4-10.2) mg/dL Adrenal panel 02/16/19 Range/Units 04:47 Sodium 138 (137-145) mmol/L Potassium 4.3 (3.6-5.0) mmol/L Chloride 110.0 H (98-107) mmol/L Carbon Dioxide 18 L (22-30) mmol/L BUN 14 (7-17) mg/dL Creatinine 0.3 L (0.7-1.2) mg/dL Glucose 115 H (65-100) mg/dL Calcium 9.2 (8.4-10.2) mg/dL
[2019-02-16] MEDS: MORPHINE IV PRN (09:54)
[2019-02-16] MEDS: SOLU-Medrol IV SCH ×2 (10:00→19:22)
[2019-02-16] MEDS: PROTONIX IV SCH (10:01)
[2019-02-16] MEDS: SODIUM CHLORIDE FLUSH SYRINGE 10 ML IV SCH ×2 (10:01→21:11)
[2019-02-16] MEDS: LOVENOX SUB-Q SCH (10:01)
--- NOTE | 2019-02-16 10:33 | Progress Note ---
Assessment and Plan Assessment and plan: Severe Sepsis with Shock. Resolved. Off pressors. Follow-up blood cultures. Acute hypoxemic respiratory failure. Patient extubated, BiPAP as clinically indicated. GI bleed/melena. Patient with melena yesterday morning. No hematemesis, hematochezia or further signs of bleeding. ? Ulcer give a history of NSAID use. Patient unable to undergo EGD due to instability/comorbidities. GI following. Bleeding scan vs CTA if overt bleeding develops. Continue PPI and supportive care. -continue PPI and supportive care Cecal volvulus and large Bowel obstruction. S/p exploratory laparotomy and right hemicolectomy. Followed by Gen. Surgery. Pureed diet with thin liquids as per speech therapy. Will need protein supplements once she is tolerating diet. Continue dobhoff to supplement nutrition with TF. Acute chronic obstructive pulmonary disease exacerbation. Continue steroid taper. Bronchodilators and nebulizer treatment. Pulmonary following. Acute systolic congestive heart failure exacerbation(EF 20-25%). Strict intake and output monitoring Hypokalemia, resolved Elevated serum troponin. Etiology likely secondary to #1. ? Type II CO. Adult failure to thrive and cachexia. PT/OT recommended subacute rehabilitation. Speech found no evidence of aspiration. Dysphagia diet with pured and thin liquids. Thrombocytopenia Continuing to trend platelet counts. Disposition. Transfer to telemetry History Interval history: Patient is about 71-year-old female with PMHx of CHF, COPD, who was brought to the ER by EMS after a fall at home, altered mental status, respiratory distress. Per EMS patient was found in severe respiratory distress, laying on the floor and covered in her feces. According to EMS the had asked a neighbor to call EMS because the patient fell on the floor and he was unable to pick her up. He states that she had been sick for a few days, she had trouble breathing, and he had been taking a lot of "goody powder" for pain. On arrival to the ER jaguar ent was lethargic, responded to name, her blood pressure was 80/54, the temperature was 97.1, respiration was 40 BPM, she had h&h of 1.9/7.1, GI was consulted and she was admitted for acute GI bleed, acute blood loss anemia, CHF (BNP was 9100) and COPD exacerbation. respiratory failure worsened, so was intubated. She was seen by GI Physician, put on Protonix iv, but EGD not done because unstable. Patient with vomiting vomiting and CT revealed poss bowel obstruction, surg consulted and evaluated her. The patient underwent exploratory laparotomy, right hemicolectomy for cecal volvulus and large bowel obstruction. Patient was extubated on 02/04/19. Patient has some improvement and has been started on pured diet with thin liquids as per speech therapy recommendations. Dobbhoff was inserted to supplement nutrition with TF at 10 mL an hour. Physical therapy evaluated the patient and suggested subacute rehabilitation. Patient complaining of abdominal pain this morning. Hospitalist Physical - Constitutional Vitals: Temp Pulse Resp BP Pulse Ox 98.9 F 94 H 20 143/82 90 02/16/19 08:14 02/16/19 08:49 02/16/19 08:49 02/16/19 08:14 02/16/19 08:43 General appearance: Present: no acute distress, cachectic - EENT Eyes: Present: PERRL, EOM intact ENT: hearing intact, clear oral mucosa, dentition normal - Neck Neck: Present: supple, normal ROM - Respiratory Respiratory effort: normal Respiratory: bilateral: CTA - Cardiovascular Rhythm: regular Heart Sounds: Present: S1 & S2. Absent: gallop, rub - Extremities Extremities: no ischemia, No edema, Full ROM - Abdominal General gastrointestinal: soft, non-tender, non-distended, normal bowel sounds - Integumentary Integumentary: Present: clear, warm, dry - Neurologic Neurologic: CNII-XII intact, moves all extremities Results - Labs CBC & Chem 7: 02/16/19 04:47 02/16/19 04:47 Labs: Laboratory Last Values WBC 22.3 K/mm3 (4.5-11.0) H 02/16/19 04:47 RBC 3.31 M/mm3 (3.65-5.03) L 02/16/19 04:47 Hgb 9.4 gm/dl (10.1-14.3) L 02/16/19 04:47 Hct 29.3 % (30.3-42.9) L 02/16/19 04:47 MCV 88 fl (79-97) 02/16/19 04:47 MCH 28 pg (28-32) 02/16/19 04:47 MCHC 32 % (30-34) 02/16/19 04:47 RDW 20.5 % (13.2-15.2) H 02/16/19 04:47 Plt Count 329 K/mm3 (140-440) 02/16/19 04:47 Lymph % (Auto) 17.6 % (13.4-35.0) 02/03/19 18:06 [place] % (Auto) 10.1 % (0.0-7.3) H 02/03/19 18:06 Eos % (Auto) 0.1 % (0.0-4.3) 02/03/19 18:06 Baso % (Auto) 1.0 % (0.0-1.8) 02/03/19 18:06 Lymph # 1.1 K/mm3 (1.2-5.4) L 02/03/19 18:06 [place] # 0.6 K/mm3 (0.0-0.8) 02/03/19 18:06 Eos # 0.0 K/mm3 (0.0-0.4) 02/03/19 18:06 Baso # 0.1 K/mm3 (0.0-0.1) 02/03/19 18:06 Add Manual Diff Complete 02/16/19 04:47 Total Counted 100 02/16/19 04:47 Seg Neutrophils % [facility] Program Coordinator 02/16/19 04:47 Seg Neuts % (Manual) 90.0 % (40.0-70.0) H 02/16/19 04:47 7.0 % 02/16/19 04:47 1.0 % (13.4-35.0) L 02/16/19 04:47 Reactive Lymphs % (Man) 0 % 02/16/19 04:47 2.0 % (0.0-7.3) 02/16/19 04:47 0 % (0.0-4.3) 02/16/19 04:47 0 % (0.0-1.8) 02/16/19 04:47 0 % 02/16/19 04:47 0 % 02/16/19 04:47 0 % 02/16/19 04:47 0 % 02/16/19 04:47 Nucleated RBC % Not Reportable 02/16/19 04:47 Seg Neutrophils # 4.5 K/mm3 (1.8-7.7) 02/03/19 18:06 Seg Neutrophils # Man 20.1 K/mm3 (1.8-7.7) H 02/16/19 04:47 Band Neutrophils # 1.6 K/mm3 02/16/19 04:47 0.2 K/mm3 (1.2-5.4) L 02/16/19 04:47 Abs React Lymphs (Man) 0.0 K/mm3 02/16/19 04:47 0.4 K/mm3 (0.0-0.8) 02/16/19 04:47 0.0 K/mm3 (0.0-0.4) 02/16/19 04:47 0.0 K/mm3 (0.0-0.1) 02/16/19 04:47 0.0 K/mm3 02/16/19 04:47 0.0 K/mm3 02/16/19 04:47 0.0 K/mm3 02/16/19 04:47 Blast Cells # 0.0 K/mm3 02/16/19 04:47 WBC Morphology Not Reportable 02/14/19 04:34 Hypersegmented Neuts Not Reportable 02/16/19 04:47 Hyposegmented Neuts Not Reportable 02/16/19 04:47 Hypogranular Neuts Not Reportable 02/16/19 04:47 Not Reportable 02/16/19 04:47 Not Reportable 02/16/19 04:47 Not Reportable 02/16/19 04:47 Not Reportable 02/16/19 04:47 Not Reportable 02/16/19 04:47 Not Reportable 02/16/19 04:47 Consistent w auto 02/16/19 04:47 Not Reportable 02/16/19 04:47 Plt Clumps, EDTA Not Reportable 02/16/19 04:47 Not Reportable 02/16/19 04:47 Not Reportable 02/16/19 04:47 Not Reportable 02/16/19 04:47 Plt Morphology Comment Not Reportable 02/16/19 04:47 RBC Morphology Not Reportable 02/16/19 04:47 Dimorphic RBCs Yes 02/16/19 04:47 Not Reportable 02/16/19 04:47 Not Reportable 02/16/19 04:47 Not Reportable 02/16/19 04:47 1+ 02/16/19 04:47 Not Reportable 02/16/19 04:47 Not Reportable 02/16/19 04:47 Not Reportable 02/16/19 04:47 Not Reportable 02/16/19 04:47 Not Reportable 02/16/19 04:47 Not Reportable 02/16/19 04:47 Not Reportable 02/16/19 04:47 Not Reportable 02/16/19 04:47 Not Reportable 02/16/19 04:47 Not Reportable 02/16/19 04:47 Not Reportable 02/16/19 04:47 Not Reportable 02/16/19 04:47 Not Reportable 02/16/19 04:47 Not Reportable 02/16/19 04:47 Not Reportable 02/16/19 04:47 Acanthocytes (Spur) Not Reportable 02/16/19 04:47 Rouleaux Not Reportable 02/16/19 04:47 Not Reportable 02/16/19 04:47 Not Reportable 02/16/19 04:47 Not Reportable 02/16/19 04:47 Not Reportable 02/16/19 04:47 Hem Pathologist Commnt Sent to pathology 02/16/19 04:47 PT 19.3 Sec. (12.2-14.9) H 02/03/19 19:24 INR 1.52 (0.87-1.13) H 02/03/19 19:24 APTT 30.3 Sec. (24.2-36.6) 02/03/19 19:24 POC ABG pH 7.466 (7.35-7.45) H 02/12/19 05:44 POC ABG pCO2 33.5 (35-45) L 02/12/19 05:44 POC ABG pO2 118 (80-105) H 02/12/19 05:44 POC ABG HCO3 24.1 (22-26 mml/L) 02/12/19 05:44 POC ABG Total CO2 25 (23-27mmol/L) 02/12/19 05:44 POC ABG O2 Sat 99 02/12/19 05:44 POC ABG Base Excess 0 ((-2) - (+3)mmol/L) 02/12/19 05:44 30 % 02/12/19 05:44 Sodium 138 mmol/L (137-145) 02/16/19 04:47 Potassium 4.3 mmol/L (3.6-5.0) 02/16/19 04:47 Chloride 110.0 mmol/L (98-107) H 02/16/19 04:47 Carbon Dioxide 18 mmol/L (22-30) L 02/16/19 04:47 14 mmol/L 02/16/19 04:47 BUN 14 mg/dL (7-17) 02/16/19 04:47 0.3 mg/dL (0.7-1.2) L 02/16/19 04:47 Estimated GFR > 60 ml/min 02/16/19 04:47 47 % 02/16/19 04:47 Glucose 115 mg/dL (65-100) H 02/16/19 04:47 POC Glucose 147 (70-105) H 02/12/19 11:54 Lactic Acid 1.70 mmol/L (0.7-2.0) 02/05/19 04:41 Calcium 9.2 mg/dL (8.4-10.2) 02/16/19 04:47 Phosphorus 3.10 mg/dL (2.5-4.5) 02/13/19 04:33 Magnesium 1.90 mg/dL (1.7-2.3) 02/13/19 04:33 0.30 mg/dL (0.1-1.2) 02/03/19 18:08 AST 35 units/L (5-40) 02/03/19 18:08 ALT 27 units/L (7-56) 02/03/19 18:08 117 units/L (35-129) 02/03/19 18:08 0.058 ng/mL (0.00-0.029) H D 02/08/19 18:52 9.30 mg/dL (0.00-1.30) H 02/04/19 17:07 NT-Pro-B Natriuret Pep 9160 pg/mL (0-900) H 02/03/19 18:06 5.1 g/dL (6.3-8.2) L 02/03/19 18:08 2.8 g/dL (3.9-5) L 02/03/19 18:08 1.2 % 02/03/19 18:08 Triglycerides 164 mg/dL (2-149) H 02/03/19 18:08 Cholesterol 125 mg/dL (50-199) 02/03/19 18:08 75 mg/dL (50-130) 02/03/19 18:08 31 mg/dL (40-59) L 02/03/19 18:08 4.03 % 02/03/19 18:08 Yellow (Yellow) 02/03/19 02:57 Clear (Clear) 02/03/19 02:57 6.0 (5.0-7.0) 02/03/19 02:57 Ur Specific [place] 1.011 (1.003-1.030) 02/03/19 02:57 <15 mg/dl mg/dL (Negative) 02/03/19 02:57 Neg mg/dL (Negative) 02/03/19 02:57 Neg mg/dL (Negative) 02/03/19 02:57 Neg (Negative) 02/03/19 02:57 Neg (Negative) 02/03/19 02:57 Neg (Negative) 02/03/19 02:57 < 2.0 mg/dL (<2.0) 02/03/19 02:57 Ur Leukocyte Esterase Neg (Negative) 02/03/19 02:57 7.0 /HPF (0.0-6.0) H 02/03/19 02:57 8.0 /HPF (0.0-6.0) 02/03/19 02:57 U Epithel Cells (Auto) 1.0 /HPF (0-13.0) 02/03/19 02:57 2+ /HPF (Negative) 02/03/19 02:57 Hyaline Casts 22 /LPF 02/03/19 02:57 3+ /HPF 02/03/19 02:57 Blood Type A POSITIVE 02/03/19 18:06 Antibody Screen Negative 02/03/19 18:06 Crossmatch See Detail 02/03/19 18:06 Active Medications - Current Medications Current Medications: Generic Name Dose Route Start Last Admin Trade Name Freq PRN Reason Stop Dose Admin Albuterol/Ipratropium 1 ampul 02/04/19 02:00 02/16/19 08:44 Duoneb *Not For Prn Use* IH 1 ampul Q6HRT JOEL Administration Lipase/Protease/Amylase 1 each 02/08/19 16:37 Pancrebrant [place] 10,500 Unit FEEDTUBE PRN PRN For Clogged Feeding Tube Arformoterol Tartrate 15 mcg 02/04/19 14:15 02/16/19 08:44 Brovana Nebu IH 15 mcg Q12HRT JOEL Administration Budesonide 0.5 mg 02/04/19 20:00 02/16/19 08:44 Pulmicort IH 0.5 mg Q12HRT JOEL Administration Enoxaparin Sodium 30 mg 02/14/19 14:00 02/16/19 10:01 Lovenox SUB-Q 30 mg DAILY JOEL Administration Hydrophilic Ointment 1 applic 02/06/19 10:50 Vaseline Lip Therapy TP Q2HR PRN Dry Lips Potassium Chloride/Dextrose/Sod Cl 20 meq in 1,000 mls @ 60 mls/hr 02/12/19 19:00 02/14/19 08:16 D5w/0.45% Nacl/Kcl 20 Meq IV 60 mls/hr DIRECT JOEL Administration Morphine Sulfate 1 mg 02/12/19 14:00 02/16/19 09:54 Morphine IV 1 mg Q4H PRN Administration Pain , Severe (7-10) Multi-Ingred Cream/Lotion/Oil/Oint 1 applic 02/06/19 10:50 Artificial Tears Ophth Oint OU Q4HR PRN Dry Eye(s) Ondansetron HCl 4 mg 02/03/19 20:27 02/09/19 16:37 Zofran IV 4 mg Q8H PRN Administration Nausea And Vomiting Pantoprazole Sodium 40 mg 02/09/19 19:00 02/16/19 10:01 Protonix IV 40 mg QDAY JOEL Administration Simple Syrup 15 ml 02/08/19 16:37 Simple Syrup FEEDTUBE PRN PRN Hypoglycemia Simple Syrup 30 ml 02/08/19 16:37 Simple Syrup FEEDTUBE PRN PRN Hypoglycemia Sodium Bicarbonate 325 mg 02/08/19 16:37 Sodium Bicarbonate FEEDTUBE PRN PRN For Clogged Feeding Tube Sodium Chloride 10 ml 02/03/19 22:00 02/16/19 10:01 Sodium Chloride Flush Syringe 10 Ml IV 10 ml BID JOEL Administration Sodium Chloride 10 ml 02/03/19 20:27 Sodium Chloride Flush Syringe 10 Ml IV PRN PRN LINE FLUSH Tramadol HCl 25 mg 02/15/19 11:13 02/15/19 18:29 Ultram FEEDTUBE 25 mg Q4H PRN Administration Pain, Moderate (4-6) Nutrition/Malnutrition Assess - Dietary Evaluation Nutrition/Malnutrition Findings: Nutrition Notes Start: 02/04/19 14:37 Freq: Status: Active Protocol: Document 02/14/19 09:52 LP (Rec: 02/14/19 09:57 LP [id number]) Nutrition Notes Initial or Follow up Reassessment Current Diagnosis Heart Failure,Respiratory Failure Other Pertinent Diagnosis AMS Current Diet NPO Labs/Tests Reviewed Pertinent Medications Reviewed Height 5 ft 3 in Weight 38.4 kg [place] Body Weight (kg) 52.27 BMI 15.0 Subjective/Other Information Pt diet advanced to pureed but has poor appetite so dobhoff has been placed. Burn Absent Trauma Absent #1 Nutrition Diagnosis Inadequate oral intake Diagnosis Progress(for reassessment Continues documentation) Is patient on ventilator? No Is Patient Ambulatory and/or Out of Bed No REE-([facility]-confined to bed) 1054.008 Kcal/Kg value to use for calculation 40 Approximate Energy Requirements Using 1536 kcal/Kg Calculation Used for Recommendations Kcal/kg Additional Notes Pro needs 1.2-2g/k-72g/ day Fluid needs 1ml/kcal Nutrition Intervention Nutrition Support: Glucerna 1.2 at 45ml/hr. Flush with 100ml q4h Kcal 1,296 Protein (gm) 65 Fluid (mL) 869 Goal #1 Meet at least 80% of kcal and protein needs Anticipated Discharge Needs: Unable to determine at this time Follow-Up By: 02/18/19 Additional Comments Follow for TF start/tolerance
--- NOTE | 2019-02-16 12:07 | XRay Report ---
PROCEDURE: XR CHEST 1V AP TECHNIQUE: Chest radiograph single view. HISTORY: increased work of breathing COMPARISONS: 02/13/2019 . FINDINGS: New patchy and interstitial opacity is present in the right midlung. Interstitial and/or vascular markings are increased bilaterally. New patchy opacity with slight consolidation in left midlung. New left CP angle blunting suggestive of small pleural effusion. No right pleural effusion. No pneumothorax. Gastric tube extends below the diaphragm. Cardiac silhouette size at upper limits of normal. IMPRESSION: New pulmonary opacities may reflect atelectasis, edema, and/or pneumonia bilaterally New left pleural effusion This document is electronically signed by Terrence Palmer MD., February 16 2019 01:05:36 PM ET
--- NOTE | 2019-02-16 13:37 | Gastroenterology Progress Note ---
Assessment and Plan 1.GI bleed 2.melena 3.anemia -H/H stable. -No BM overnight. No overt signs of active GI bleeding at this time. -etiology unclear- possibly sequela given stable H/H (ulcer vs old blood from ileocolic staple line?). Patient was originally admitted with UGIB (possible ulcer given hx of NSAID use vs other) but was unable to undergo EGD due to instability -no plan for scope at this time given no signs of active GI bleeding. -recommend stat bleeding scan vs CTA if overt bleeding develops -continue PPI and supportive care -will follow 4.severe sepsis with shock 5.acute hypoxemic respiratory failure 6.cecal volvulus and large bowel obstruction-s/p exp lap with right hemicolectomy 7.acute systolic congestive heart failure exacerbation 8.adult failure to thrive Subjective Date of service: 02/16/19 Principal diagnosis: GI bleed Interval history: Patient tolerating tube feeds. No BM overnight. No report of melena or blood in the stool. Objective - Constitutional Vitals: Temp Pulse Resp BP Pulse Ox 98.8 F 103 H 20 152/77 80 L 02/16/19 11:44 02/16/19 11:44 02/16/19 11:44 02/16/19 11:44 02/16/19 11:44 - EENT Eyes: EOM intact ENT: hearing intact - Neck Neck: supple - Respiratory Respiratory effort: normal - Cardiovascular Rhythm: regular Heart Sounds: Present: S1 & S2 - Extremities Extremities: No edema - Gastrointestinal General gastrointestinal: Present: soft, tender, non-distended - Integumentary Integumentary: Present: clear, warm - Labs CBC & Chem 7: 02/16/19 04:47 02/16/19 04:47 Labs: Laboratory Results - last 24 hr 02/15/19 02/16/19 02/16/19 14:30 04:47 04:47 WBC 24.2 H 22.3 H RBC 3.86 3.31 L Hgb 10.6 9.4 L Hct 34.0 29.3 L MCV 88 88 MCH 27 L 28 MCHC 31 32 RDW 19.6 H 20.5 H Plt Count 322 329 Add Manual Diff Complete Total Counted 100 Seg Neutrophils % Durability Technician Seg Neuts % (Manual) 90.0 H Band Neutrophils % 7.0 Lymphocytes % (Manual) 1.0 L Reactive Lymphs % (Man) 0 Monocytes % (Manual) 2.0 Eosinophils % (Manual) 0 Basophils % (Manual) 0 Metamyelocytes % 0 Myelocytes % 0 Promyelocytes % 0 Blast Cells % 0 Nucleated RBC % Not Reportable Seg Neutrophils # Man 20.1 H Band Neutrophils # 1.6 Lymphocytes # (Manual) 0.2 L Abs React Lymphs (Man) 0.0 Monocytes # (Manual) 0.4 Eosinophils # (Manual) 0.0 Basophils # (Manual) 0.0 Metamyelocytes # 0.0 Myelocytes # 0.0 Promyelocytes # 0.0 Blast Cells # 0.0 Hypersegmented Neuts Not Reportable Hyposegmented Neuts Not Reportable Hypogranular Neuts Not Reportable Smudge Cells Not Reportable Toxic Granulation Not Reportable Toxic Vacuolation Not Reportable Dohle Bodies Not Reportable Pelger-Huet Anomaly Not Reportable Fermin Rods Not Reportable Platelet Estimate Consistent w auto Clumped Platelets Not Reportable Plt Clumps, EDTA Not Reportable Large Platelets Not Reportable Giant Platelets Not Reportable Platelet Satelliting Not Reportable Plt Morphology Comment Not Reportable RBC Morphology Not Reportable Dimorphic RBCs Yes Polychromasia Not Reportable Hypochromasia Not Reportable Poikilocytosis Not Reportable Anisocytosis 1+ Microcytosis Not Reportable Macrocytosis Not Reportable Spherocytes Not Reportable Pappenheimer Bodies Not Reportable Sickle Cells Not Reportable Target Cells Not Reportable Tear Drop Cells Not Reportable Ovalocytes Not Reportable Helmet Cells Not Reportable [place] Bodies Not Reportable [place] Rings Not Reportable [place] Cells Not Reportable Bite Cells Not Reportable Crenated Cell Not Reportable Elliptocytes Not Reportable Acanthocytes (Spur) Not Reportable Rouleaux Not Reportable Hemoglobin C Crystals Not Reportable Schistocytes Not Reportable Malaria parasites Not Reportable [place] Bodies Not Reportable Hem Pathologist Commnt Sent to pathology Sodium 138 Potassium 4.3 Chloride 110.0 H Carbon Dioxide 18 L Anion Gap 14 BUN 14 Creatinine 0.3 L Estimated GFR > 60 BUN/Creatinine Ratio 47 Glucose 115 H Calcium 9.2
--- NOTE | 2019-02-16 13:38 | Progress Note ---
Assessment and Plan Acute hypoxemic respiratory failure, on continuous noninvasive ventilation. Acute intussusception Symptomatic anemia with positive stool guaiac. Acute chronic obstructive pulmonary disease exacerbation. Possible acute gastrointestinal bleed. Acute congestive heart failure exacerbation. Seceer Sepsis with Shock Systemic inflammatory response syndrome. Hypokalemia. Elevated serum troponin. Adult failure to thrive. - deploy BIPAP (16/8 rate 20) - begin empiric Levaquin (get ID input re; persistent leucocytosis) - get CRP & lactate levels - resume solumedrol short course - ST evaluation re: ? aspiration - continue wound care per WCT / RN - continue conservative volume management strategies (EF 20-25%) - resume low dose diuresis re: pulmonary edema component - continue to wean supplemental oxygen to keep O2 sats >/= 88-90%` - continue bronchodilators with pulmonary hygiene per RT - Strict intake and output monitoring - Maintenance of sleep -wake cycle - Mobility protocol for pressure ulcer prophylaxis - continue GI & VTE prophylaxis - Influenza and pneumonia vaccination per protocol ....... care plan discussed with in room also .... care plan discussed with RN/RT/Attending CODE STATUS: FULL CODE .... 37' care time with > 15 min's spent at bedside Subjective Date of service: 02/16/19 Principal diagnosis: Ac hypoxemic Resp failure; Severe Anemia; AE-COPD; G.I. Bleed; Septic Shock Interval history: Patient is seen today for: Acute hypoxemic Resp failure; Symptomatic anemia; AE- COPD; G.I. Bleed; Acute congestive heart failure exacerbation; Hypotension; SIRS Seen and examined at bedside; 24-hour events reviewed; nursing and respiratory care staff consulted; no adverse overnight events reported to me; resting peacefully in bed; apparently pulled off her mask and desaturated to the 70's; had been slowly declining most of day also; denies acute chest pains; No N/V/F/C but a little combative Objective Vital Signs - 12hr 02/16/19 02/16/19 02/16/19 02:00 02:14 04:54 Temperature 97.9 F Pulse Rate 82 Pulse Rate [ 89 90 Anterior Bilateral Throughout] Respiratory 20 Rate Respiratory 20 20 Rate [Anterior Bilateral Throughout] Blood Pressure 131/64 O2 Sat by Pulse 84 Oximetry 02/16/19 02/16/19 02/16/19 08:14 08:40 08:43 Temperature 98.9 F Pulse Rate 92 H Pulse Rate [ 94 H Anterior Bilateral Throughout] Respiratory 18 Rate Respiratory 20 Rate [Anterior Bilateral Throughout] Blood Pressure 143/82 O2 Sat by Pulse 88 90 Oximetry 02/16/19 02/16/19 08:49 11:44 Temperature 98.8 F Pulse Rate 103 H Pulse Rate [ 94 H Anterior Bilateral Throughout] Respiratory 20 Rate Respiratory 20 Rate [Anterior Bilateral Throughout] Blood Pressure 152/77 O2 Sat by Pulse 80 L Oximetry Constitutional: appears uncomfortable, other (elderly looking petite CF normocephalic witgh increased resp effort at rest; chronically ill looking, cachexia) Eyes: non-icteric ENT: oropharynx moist, other (on supplemental oxygen via nasal canula) Neck: supple, no lymphadenopathy, JVD, other (no thyromegaly) Effort: mildly labored Ascultation: Bilateral: diminished breath sounds (severely), rhonchi (scant in bases), other (occassional accessory muscle use) Percussion: Bilateral: not dull Cardiovascular: irregular rhythm, other (S1,S2, ) Gastrointestinal: hypoactive bowel sounds, soft, non-tender, non-distended, other (no palpable HSM) Integumentary: normal Extremities: no cyanosis, pink and warm, pulses normal, no ischemia or petechiae Neurologic: non-focal exam (grossly), pupils equal and round, CN II-XII normal, other (weak) Psychiatric: mood appropriate, anxious CBC and BMP: 02/16/19 04:47 02/16/19 04:47 ABG, PT/INR, D-dimer: ABG POC ABG pH 7.466 (7.35-7.45) H 02/12/19 05:44 POC ABG pCO2 33.5 (35-45) L 02/12/19 05:44 POC ABG pO2 118 (80-105) H 02/12/19 05:44 POC ABG HCO3 24.1 (22-26 mml/L) 02/12/19 05:44 POC ABG Total CO2 25 (23-27mmol/L) 02/12/19 05:44 POC ABG O2 Sat 99 02/12/19 05:44 PT/INR, D-dimer PT 19.3 Sec. (12.2-14.9) H 02/03/19 19:24 INR 1.52 (0.87-1.13) H 02/03/19 19:24 Abnormal lab findings: Abnormal Labs 02/03/19 02/03/19 02/03/19 02:57 18:06 18:06 WBC RBC 0.88 L Hgb 1.9 L* Hct 7.1 L* MCH 22 L MCHC 27 L RDW 23.3 H Plt Count 489 H Desha % (Auto) 10.1 H Lymph # 1.1 L Seg Neutrophils % 71.2 H Seg Neuts % (Manual) Lymphocytes % (Manual) Seg Neutrophils # Man Lymphocytes # (Manual) PT INR POC ABG pH POC ABG pCO2 POC ABG pO2 Sodium Potassium Chloride Carbon Dioxide BUN Creatinine Glucose POC Glucose Lactic Acid Calcium Phosphorus Troponin T C-Reactive Protein NT-Pro-B Natriuret Pep 9160 H Total Protein Albumin Triglycerides HDL Cholesterol Urine WBC (Auto) 7.0 H Crossmatch 02/03/19 02/03/19 02/03/19 18:06 18:08 18:08 WBC RBC Hgb Hct MCH MCHC RDW Plt Count Desha % (Auto) Lymph # Seg Neutrophils % Seg Neuts % (Manual) Lymphocytes % (Manual) Seg Neutrophils # Man Lymphocytes # (Manual) PT INR POC ABG pH POC ABG pCO2 POC ABG pO2 Sodium Potassium 3.3 L Chloride Carbon Dioxide 17 L BUN Creatinine Glucose POC Glucose Lactic Acid 9.90 H* Calcium 7.9 L Phosphorus Troponin T 0.134 H* C-Reactive Protein NT-Pro-B Natriuret Pep Total Protein 5.1 L Albumin 2.8 L Triglycerides 164 H HDL Cholesterol 31 L Urine WBC (Auto) Crossmatch See Detail 02/03/19 02/03/19 02/03/19 19:24 19:24 19:24 WBC RBC Hgb Hct MCH MCHC RDW Plt Count Desha % (Auto) Lymph # Seg Neutrophils % Seg Neuts % (Manual) Lymphocytes % (Manual) Seg Neutrophils # Man Lymphocytes # (Manual) PT 19.3 H INR 1.52 H POC ABG pH POC ABG pCO2 POC ABG pO2 Sodium Potassium Chloride Carbon Dioxide BUN Creatinine Glucose POC Glucose Lactic Acid 6.30 H* Calcium Phosphorus Troponin T 0.139 H* C-Reactive Protein NT-Pro-B Natriuret Pep Total Protein Albumin Triglycerides HDL Cholesterol Urine WBC (Auto) Crossmatch 02/03/19 02/03/19 02/04/19 20:30 23:36 01:18 WBC RBC Hgb Hct MCH MCHC RDW Plt Count Desha % (Auto) Lymph # Seg Neutrophils % Seg Neuts % (Manual) Lymphocytes % (Manual) Seg Neutrophils # Man Lymphocytes # (Manual) PT INR POC ABG pH 7.515 H POC ABG pCO2 POC ABG pO2 121 H Sodium Potassium Chloride Carbon Dioxide BUN Creatinine Glucose POC Glucose Lactic Acid 6.50 H* 5.70 H* Calcium Phosphorus Troponin T C-Reactive Protein NT-Pro-B Natriuret Pep Total Protein Albumin Triglycerides HDL Cholesterol Urine WBC (Auto) Crossmatch 02/04/19 02/04/19 02/04/19 04:35 04:35 04:35 WBC 17.5 H RBC Hgb Hct MCH 27 L MCHC RDW 15.9 H Plt Count Desha % (Auto) Lymph # Seg Neutrophils % Seg Neuts % (Manual) 96.0 H Lymphocytes % (Manual) 1.0 L Seg Neutrophils # Man 16.8 H Lymphocytes # (Manual) 0.2 L PT INR POC ABG pH POC ABG pCO2 POC ABG pO2 Sodium 147 H Potassium 3.2 L Chloride Carbon Dioxide 21 L BUN Creatinine Glucose 170 H POC Glucose Lactic Acid 3.60 H* Calcium 7.9 L Phosphorus Troponin T C-Reactive Protein NT-Pro-B Natriuret Pep Total Protein Albumin Triglycerides HDL Cholesterol Urine WBC (Auto) Crossmatch 02/04/19 02/04/19 02/04/19 10:59 17:07 17:07 WBC RBC Hgb Hct MCH MCHC RDW Plt Count Desha % (Auto) Lymph # Seg Neutrophils % Seg Neuts % (Manual) Lymphocytes % (Manual) Seg Neutrophils # Man Lymphocytes # (Manual) PT INR POC ABG pH POC ABG pCO2 POC ABG pO2 Sodium Potassium 3.1 L Chloride Carbon Dioxide BUN Creatinine Glucose POC Glucose Lactic Acid 2.30 H* Calcium Phosphorus Troponin T C-Reactive Protein 9.30 H NT-Pro-B Natriuret Pep Total Protein Albumin Triglycerides HDL Cholesterol Urine WBC (Auto) Crossmatch 02/04/19 02/04/19 02/05/19 17:15 21:04 00:05 WBC RBC Hgb Hct MCH MCHC RDW Plt Count Desha % (Auto) Lymph # Seg Neutrophils % Seg Neuts % (Manual) Lymphocytes % (Manual) Seg Neutrophils # Man Lymphocytes # (Manual) PT INR POC ABG pH 7.310 L POC ABG pCO2 POC ABG pO2 68 L Sodium Potassium Chloride Carbon Dioxide BUN Creatinine Glucose POC Glucose Lactic Acid 2.40 H* 2.70 H* Calcium Phosphorus Troponin T C-Reactive Protein NT-Pro-B Natriuret Pep Total Protein Albumin Triglycerides HDL Cholesterol Urine WBC (Auto) Crossmatch 02/05/19 02/05/19 02/05/19 04:41 04:41 12:54 WBC 15.1 H RBC Hgb Hct MCH MCHC RDW 16.6 H Plt Count Desha % (Auto) Lymph # Seg Neutrophils % Seg Neuts % (Manual) 90.0 H Lymphocytes % (Manual) 2.0 L Seg Neutrophils # Man 13.6 H Lymphocytes # (Manual) 0.3 L PT INR POC ABG pH POC ABG pCO2 POC ABG pO2 74 L Sodium 147 H Potassium Chloride 114.1 H Carbon Dioxide 20 L BUN 19 H Creatinine Glucose 192 H POC Glucose Lactic Acid Calcium 7.4 L Phosphorus Troponin T C-Reactive Protein NT-Pro-B Natriuret Pep Total Protein Albumin Triglycerides HDL Cholesterol Urine WBC (Auto) Crossmatch 02/06/19 02/06/19 02/06/19 01:46 11:42 11:42 WBC 21.1 H RBC Hgb Hct MCH MCHC RDW 17.0 H Plt Count Desha % (Auto) Lymph # Seg Neutrophils % Seg Neuts % (Manual) Lymphocytes % (Manual) Seg Neutrophils # Man Lymphocytes # (Manual) PT INR POC ABG pH POC ABG pCO2 34.4 L POC ABG pO2 56 L Sodium 151 H Potassium Chloride 112.1 H Carbon Dioxide BUN Creatinine Glucose 187 H POC Glucose Lactic Acid Calcium 8.1 L Phosphorus Troponin T C-Reactive Protein NT-Pro-B Natriuret Pep Total Protein Albumin Triglycerides HDL Cholesterol Urine WBC (Auto) Crossmatch 02/06/19 02/07/19 02/07/19 12:04 04:26 05:27 WBC 21.7 H RBC Hgb Hct MCH MCHC RDW 17.6 H Plt Count Desha % (Auto) Lymph # Seg Neutrophils % Seg Neuts % (Manual) 98.0 H Lymphocytes % (Manual) 1.0 L Seg Neutrophils # Man 21.3 H Lymphocytes # (Manual) 0.2 L PT INR POC ABG pH 7.481 H POC ABG pCO2 31.3 L POC ABG pO2 63 L 50 L Sodium Potassium Chloride Carbon Dioxide BUN Creatinine Glucose POC Glucose Lactic Acid Calcium Phosphorus Troponin T C-Reactive Protein NT-Pro-B Natriuret Pep Total Protein Albumin Triglycerides HDL Cholesterol Urine WBC (Auto) Crossmatch 02/07/19 02/07/19 02/07/19 05:27 05:29 23:07 WBC RBC Hgb Hct MCH MCHC RDW Plt Count Desha % (Auto) Lymph # Seg Neutrophils % Seg Neuts % (Manual) Lymphocytes % (Manual) Seg Neutrophils # Man Lymphocytes # (Manual) PT INR POC ABG pH POC ABG pCO2 POC ABG pO2 Sodium 147 H Potassium Chloride 108.4 H Carbon Dioxide BUN Creatinine 0.6 L Glucose 184 H POC Glucose 188 H 172 H Lactic Acid Calcium 8.3 L Phosphorus 1.50 L Troponin T C-Reactive Protein NT-Pro-B Natriuret Pep Total Protein Albumin Triglycerides HDL Cholesterol Urine WBC (Auto) Crossmatch 02/08/19 02/08/19 02/08/19 04:26 04:26 11:50 WBC 18.8 H RBC Hgb Hct MCH MCHC RDW 17.7 H Plt Count Desha % (Auto) Lymph # Seg Neutrophils % Seg Neuts % (Manual) Lymphocytes % (Manual) Seg Neutrophils # Man Lymphocytes # (Manual) PT INR POC ABG pH POC ABG pCO2 POC ABG pO2 Sodium Potassium Chloride Carbon Dioxide BUN 19 H Creatinine 0.6 L Glucose 190 H POC Glucose 185 H Lactic Acid Calcium 8.2 L Phosphorus Troponin T C-Reactive Protein NT-Pro-B Natriuret Pep Total Protein Albumin Triglycerides HDL Cholesterol Urine WBC (Auto) Crossmatch 02/08/19 02/08/19 02/08/19 12:01 17:44 18:52 WBC RBC Hgb Hct MCH MCHC RDW Plt Count Desha % (Auto) Lymph # Seg Neutrophils % Seg Neuts % (Manual) Lymphocytes % (Manual) Seg Neutrophils # Man Lymphocytes # (Manual) PT INR POC ABG pH POC ABG pCO2 POC ABG pO2 Sodium Potassium Chloride Carbon Dioxide BUN Creatinine Glucose POC Glucose 186 H 143 H Lactic Acid Calcium Phosphorus Troponin T 0.058 H D C-Reactive Protein NT-Pro-B Natriuret Pep Total Protein Albumin Triglycerides HDL Cholesterol Urine WBC (Auto) Crossmatch 02/08/19 02/09/19 02/09/19 23:24 03:57 03:57 WBC 20.3 H RBC Hgb Hct MCH MCHC RDW 18.0 H Plt Count 92 L Desha % (Auto) Lymph # Seg Neutrophils % Seg Neuts % (Manual) Lymphocytes % (Manual) Seg Neutrophils # Man Lymphocytes # (Manual) PT INR POC ABG pH POC ABG pCO2 POC ABG pO2 Sodium Potassium Chloride Carbon Dioxide BUN 29 H Creatinine 0.5 L Glucose 172 H POC Glucose 205 H Lactic Acid Calcium Phosphorus Troponin T C-Reactive Protein NT-Pro-B Natriuret Pep Total Protein Albumin Triglycerides HDL Cholesterol Urine WBC (Auto) Crossmatch 02/09/19 02/09/19 02/09/19 04:49 12:11 17:27 WBC RBC Hgb Hct MCH MCHC RDW Plt Count Desha % (Auto) Lymph # Seg Neutrophils % Seg Neuts % (Manual) Lymphocytes % (Manual) Seg Neutrophils # Man Lymphocytes # (Manual) PT INR POC ABG pH 7.473 H POC ABG pCO2 POC ABG pO2 Sodium Potassium Chloride Carbon Dioxide BUN Creatinine Glucose POC Glucose 136 H 149 H Lactic Acid Calcium Phosphorus Troponin T C-Reactive Protein NT-Pro-B Natriuret Pep Total Protein Albumin Triglycerides HDL Cholesterol Urine WBC (Auto) Crossmatch 02/10/19 02/10/19 02/10/19 04:59 04:59 04:59 WBC 16.5 H RBC Hgb Hct MCH MCHC RDW 17.7 H Plt Count 94 L Desha % (Auto) Lymph # Seg Neutrophils % Seg Neuts % (Manual) Lymphocytes % (Manual) Seg Neutrophils # Man Lymphocytes # (Manual) PT INR POC ABG pH POC ABG pCO2 POC ABG pO2 Sodium Potassium Chloride Carbon Dioxide BUN 31 H 31 H Creatinine 0.6 L 0.6 L Glucose 149 H 152 H POC Glucose Lactic Acid Calcium Phosphorus Troponin T C-Reactive Protein NT-Pro-B Natriuret Pep Total Protein Albumin Triglycerides HDL Cholesterol Urine WBC (Auto) Crossmatch 02/10/19 02/11/19 02/11/19 05:10 00:06 10:26 WBC 16.4 H RBC Hgb Hct MCH MCHC RDW 18.3 H Plt Count 111 L Desha % (Auto) Lymph # Seg Neutrophils % Seg Neuts % (Manual) Lymphocytes % (Manual) Seg Neutrophils # Man Lymphocytes # (Manual) PT INR POC ABG pH 7.518 H 7.482 H POC ABG pCO2 POC ABG pO2 173 H 119 H Sodium Potassium Chloride Carbon Dioxide BUN Creatinine Glucose POC Glucose Lactic Acid Calcium Phosphorus Troponin T C-Reactive Protein NT-Pro-B Natriuret Pep Total Protein Albumin Triglycerides HDL Cholesterol Urine WBC (Auto) Crossmatch 02/11/19 02/12/19 02/12/19 10:26 04:19 04:19 WBC 16.8 H RBC 3.44 L Hgb 9.6 L Hct 30.2 L D MCH MCHC RDW 18.0 H Plt Count 131 L Desha % (Auto) Lymph # Seg Neutrophils % Seg Neuts % (Manual) Lymphocytes % (Manual) Seg Neutrophils # Man Lymphocytes # (Manual) PT INR POC ABG pH POC ABG pCO2 POC ABG pO2 Sodium 148 H 147 H Potassium Chloride 112.7 H 114.7 H Carbon Dioxide BUN 23 H Creatinine 0.5 L 0.5 L Glucose 195 H 152 H POC Glucose Lactic Acid Calcium Phosphorus Troponin T C-Reactive Protein NT-Pro-B Natriuret Pep Total Protein Albumin Triglycerides HDL Cholesterol Urine WBC (Auto) Crossmatch 02/12/19 02/12/19 02/13/19 05:44 11:54 04:33 WBC 16.7 H RBC 3.24 L Hgb 9.1 L Hct 28.7 L MCH MCHC RDW 18.5 H Plt Count Desha % (Auto) Lymph # Seg Neutrophils % Seg Neuts % (Manual) 95.0 H Lymphocytes % (Manual) 3.0 L Seg Neutrophils # Man 15.9 H Lymphocytes # (Manual) 0.5 L PT INR POC ABG pH 7.466 H POC ABG pCO2 33.5 L POC ABG pO2 118 H Sodium Potassium Chloride Carbon Dioxide BUN Creatinine Glucose POC Glucose 147 H Lactic Acid Calcium Phosphorus Troponin T C-Reactive Protein NT-Pro-B Natriuret Pep Total Protein Albumin Triglycerides HDL Cholesterol Urine WBC (Auto) Crossmatch 02/13/19 02/14/19 02/14/19 04:33 04:34 04:34 WBC 16.3 H RBC 3.56 L Hgb 10.0 L Hct MCH MCHC RDW 19.1 H Plt Count Desha % (Auto) Lymph # Seg Neutrophils % Seg Neuts % (Manual) 98.0 H Lymphocytes % (Manual) 1.0 L Seg Neutrophils # Man 16.0 H Lymphocytes # (Manual) 0.2 L PT INR POC ABG pH POC ABG pCO2 POC ABG pO2 Sodium Potassium Chloride 113.7 H 113.1 H Carbon Dioxide BUN Creatinine 0.4 L 0.4 L Glucose 193 H 215 H POC Glucose Lactic Acid Calcium Phosphorus Troponin T C-Reactive Protein NT-Pro-B Natriuret Pep Total Protein Albumin Triglycerides HDL Cholesterol Urine WBC (Auto) Crossmatch 02/15/19 02/16/19 02/16/19 14:30 04:47 04:47 WBC 24.2 H 22.3 H RBC 3.31 L Hgb 9.4 L Hct 29.3 L MCH 27 L MCHC RDW 19.6 H 20.5 H Plt Count Desha % (Auto) Lymph # Seg Neutrophils % Seg Neuts % (Manual) 90.0 H Lymphocytes % (Manual) 1.0 L Seg Neutrophils # Man 20.1 H Lymphocytes # (Manual) 0.2 L PT INR POC ABG pH POC ABG pCO2 POC ABG pO2 Sodium Potassium Chloride 110.0 H Carbon Dioxide 18 L BUN Creatinine 0.3 L Glucose 115 H POC Glucose Lactic Acid Calcium Phosphorus Troponin T C-Reactive Protein NT-Pro-B Natriuret Pep Total Protein Albumin Triglycerides HDL Cholesterol Urine WBC (Auto) Crossmatch Chest x-ray: image reviewed (new right midlung infiltrate) Allied health notes reviewed: nursing
[2019-02-16] MEDS ORDERED: LEVAQUIN 500MG/100ML 500 MG/100 ML BAG IV SCH (17:00)
[2019-02-17] MEDS: DUONEB *Not for PRN Use IH SCH ×4 (01:19→19:27)
[2019-02-17] MEDS: SOLU-Medrol IV SCH ×3 (02:28→18:03)
[2019-02-17 04:47] LABS: Pathology Differential Review TNR
[2019-02-17 05:35] LABS: Hematocrit 30.8 % (30.3-42.9); Hemoglobin 9.9 gm/dl (10.1-14.3); Mean Corpuscular HGB Conc 32 % (30-34); Mean Corpuscular Volume 88 fl (79-97); Platelet Count 327 K/mm3 (140-440); Red Blood Count 3.52 M/mm3 (3.65-5.03); Red Cell Distribution Width 19.8 % (13.2-15.2)
[2019-02-17 05:56] LABS: BUN/Creatinine Ratio 37; Blood Urea Nitrogen 11 mg/dL (7-17); Calcium 9.2 mg/dL (8.4-10.2); Hemolysis Index 10
[2019-02-17 08:00] LABS: Band Neutrophils # (Manual) 1.9 K/mm3; Basophils % (Manual) 0 % (0.0-1.8); Eosinophils % (Manual) 0 % (0.0-4.3); Monocytes % (Manual) 1.5 % (0.0-7.3); Myelocytes # (Manual) 0.1 K/mm3; Total Cells Counted 200
[2019-02-17 08:01] LABS: Anisocytosis 1+; Platelet Estimate Consistent w Auto
--- NOTE | 2019-02-17 08:33 | Consultation ---
History of Present Illness - Reason for Consult Consult date: 02/17/19 Persistent leucocytosis, worsening Requesting physician: DIMAS HAYS - History of Present Illness The patient is a 68-year-old female with a prolonged hospitalization since 02/03/2019. She has CHF, COPD and was admitted to the hospital with altered mental status, respiratory distress. CT abdomen and pelvis revealed possible bowel obstruction with volvulus. On 02/11/2019, she underwent an expiratory laparotomy and right hemicolectomy. She initially completed a course of IV Zosyn. She was extubated and then moved to the floor. She has been on tube feeds as well as IV fluids. Yesterday, she was moved to the IMCU due to respiratory distress requiring BiPAP. Infectious diseases was consulted due to persistent and worsening leukocytosis. Currently, patient is on BiPAP, is present at bedside. She has been confused and agitated, pulling things requiring restraints. History was hence obtained by chart review, discussion with patient's and RN at bedside. She has otherwise been afebrile. Of note, she was also started on steroids yesterday. Review of Systems: Unable to be obtained due to confusion and BiPAP Past History Past Medical History: COPD, heart failure, hypertension Past Surgical History: No surgical history Social history: , lives with family (spouse) Family history: hypertension Medications and Allergies Allergies Allergy/AdvReac Type Severity Reaction Status Date / Time No Known Allergies Allergy Unverified 02/03/19 18:28 Home Medications Medication Instructions Recorded Confirmed Last Taken Type No Known Home Medications [No 02/07/19 02/07/19 Unknown History Reported Home Medications] Active Meds: Active Medications Albuterol/Ipratropium (Duoneb *Not For Prn Use*) 1 ampul IH Q6HRT [facility] Last Admin: 02/17/19 01:19 Dose: 1 ampul Documented by: Lipase/Protease/Amylase (Juan Smith 10,500 Unit) 1 each FEEDTUBE PRN PRN PRN Reason: For Clogged Feeding Tube Arformoterol Tartrate (Brovana Nebu) 15 mcg IH Q12HRT [facility] Last Admin: 02/16/19 20:25 Dose: Not Given Documented by: Budesonide (Pulmicort) 0.5 mg IH Q12HRT [facility] Last Admin: 02/16/19 19:50 Dose: 0.5 mg Documented by: Enoxaparin Sodium (Lovenox) 30 mg SUB-Q DAILY [facility] Last Admin: 02/16/19 10:01 Dose: 30 mg Documented by: Hydrophilic Ointment (Vaseline Lip Therapy) 1 applic TP Q2HR PRN PRN Reason: Dry Lips Potassium Chloride/Dextrose/Sod Cl (D5w/0.45% Nacl/Kcl 20 Meq) 20 meq in 1,000 mls @ 60 mls/hr IV DIRECT JOEL Last Admin: 02/14/19 08:16 Dose: 60 mls/hr Documented by: Levofloxacin/Dextrose (Levaquin 500mg/100ml) 500 mg in 100 mls @ 100 mls/hr IV Q24H [facility]; Protocol Last Admin: 02/16/19 19:22 Dose: 100 mls/hr Documented by: Methylprednisolone Sodium Succinate (Solu-Medrol) 60 mg IV Q8H [facility] Last Admin: 02/17/19 02:28 Dose: 60 mg Documented by: Morphine Sulfate (Morphine) 1 mg IV Q4H PRN PRN Reason: Pain , Severe (7-10) Last Admin: 02/16/19 09:54 Dose: 1 mg Documented by: Multi-Ingred Cream/Lotion/Oil/Oint (Artificial Tears Ophth Oint) 1 applic OU Q4HR PRN PRN Reason: Dry Eye(s) Ondansetron HCl (Zofran) 4 mg IV Q8H PRN PRN Reason: Nausea And Vomiting Last Admin: 02/09/19 16:37 Dose: 4 mg Documented by: Pantoprazole Sodium (Protonix) 40 mg IV QDAY [facility] Last Admin: 02/16/19 10:01 Dose: 40 mg Documented by: Simple Syrup (Simple Syrup) 15 ml FEEDTUBE PRN PRN PRN Reason: Hypoglycemia Simple Syrup (Simple Syrup) 30 ml FEEDTUBE PRN PRN PRN Reason: Hypoglycemia Sodium Bicarbonate (Sodium Bicarbonate) 325 mg FEEDTUBE PRN PRN PRN Reason: For Clogged Feeding Tube Sodium Chloride (Sodium Chloride Flush Syringe 10 Ml) 10 ml IV BID [facility] Last Admin: 02/16/19 21:11 Dose: 10 ml Documented by: Sodium Chloride (Sodium Chloride Flush Syringe 10 Ml) 10 ml IV PRN PRN PRN Reason: LINE FLUSH Tramadol HCl (Ultram) 25 mg FEEDTUBE Q4H PRN PRN Reason: Pain, Moderate (4-6) Last Admin: 02/15/19 18:29 Dose: 25 mg Documented by: Physical Examination - Physical Exam Narrative exam: Physical Exam: Constitutional: Awake, confused on BiPAP Head, Ears, Nose: Normocephalic, atraumatic. External ears, nose normal Eyes: Conjunctivae/corneas clear. No icterus. No ptosis. Neck: Supple, no meningeal signs Oral: BiPAP Cardiovascular: S1, S2 normal. Respiratory: Good air entry, clear to auscultation bilaterally GI: Soft, non-tender; bowel sounds normal. No peritoneal signs. Incision c/d/i Musculoskeletal: No pedal edema, no cyanosis. Extremities cold Skin: No rash or abscess Hem/Lymphatic: No palpable cervical or supraclavicular nodes. No lymphangitis Psych: confused, requiring restraints Neurological: Awake, on BiPAP. - Constitutional Vitals: Vital Signs Temp Pulse Resp BP Pulse Ox 98.7 F 77 21 125/67 99 02/17/19 04:00 02/17/19 06:00 02/17/19 06:00 02/17/19 06:00 02/17/19 06:00 Temperature -Last 24 Hours Temperature 98.7 F Temperature 98.9 F Temperature 98.5 F Temperature 99.7 F Temperature 98.8 F Results - Labs CBC & Chem 7: 02/17/19 04:56 02/17/19 04:56 Labs: Abnormal lab results 02/16/19 02/16/19 02/16/19 Range/Units 15:30 15:58 15:58 WBC (4.5-11.0) K/mm3 RBC (3.65-5.03) M/mm3 Hgb (10.1-14.3) gm/dl RDW (13.2-15.2) % Seg Neuts % (Manual) (40.0-70.0) % Lymphocytes % (Manual) (13.4-35.0) % Seg Neutrophils # Man (1.8-7.7) K/mm3 Lymphocytes # (Manual) (1.2-5.4) K/mm3 POC ABG pH 7.462 H (7.35-7.45) Sodium (137-145) mmol/L Carbon Dioxide (22-30) mmol/L Creatinine (0.7-1.2) mg/dL Glucose (65-100) mg/dL Lactic Acid 2.20 H* (0.7-2.0) mmol/L C-Reactive Protein 2.20 H (0.00-1.30) mg/dL 02/16/19 02/17/19 02/17/19 Range/Units 18:01 04:56 04:56 WBC 28.9 H (4.5-11.0) K/mm3 RBC 3.52 L (3.65-5.03) M/mm3 Hgb 9.9 L (10.1-14.3) gm/dl RDW 19.8 H (13.2-15.2) % Seg Neuts % (Manual) 91.0 H (40.0-70.0) % Lymphocytes % (Manual) 0.5 L (13.4-35.0) % Seg Neutrophils # Man 26.3 H (1.8-7.7) K/mm3 Lymphocytes # (Manual) 0.1 L (1.2-5.4) K/mm3 POC ABG pH (7.35-7.45) Sodium 132 L (137-145) mmol/L Carbon Dioxide 17 L (22-30) mmol/L Creatinine 0.3 L (0.7-1.2) mg/dL Glucose 125 H (65-100) mg/dL Lactic Acid 2.80 H* (0.7-2.0) mmol/L C-Reactive Protein (0.00-1.30) mg/dL 02/17/19 Range/Units 04:56 WBC (4.5-11.0) K/mm3 RBC (3.65-5.03) M/mm3 Hgb (10.1-14.3) gm/dl RDW (13.2-15.2) % Seg Neuts % (Manual) (40.0-70.0) % Lymphocytes % (Manual) (13.4-35.0) % Seg Neutrophils # Man (1.8-7.7) K/mm3 Lymphocytes # (Manual) (1.2-5.4) K/mm3 POC ABG pH (7.35-7.45) Sodium (137-145) mmol/L Carbon Dioxide (22-30) mmol/L Creatinine (0.7-1.2) mg/dL Glucose (65-100) mg/dL Lactic Acid 2.10 H* (0.7-2.0) mmol/L C-Reactive Protein (0.00-1.30) mg/dL - Imaging and Cardiology Chest x-ray: report reviewed, image reviewed (Chest x-ray shows bilateral infiltrates) Assessment and Plan Cultures: 02/03/2019 blood culture: No growth 02/07/2019 tracheal aspirate: No growth 02/10/2019 blood culture: No growth A/P: 68-year-old female with a prolonged hospitalization since 02/03/2019. She has CHF, COPD and was admitted to the hospital with altered mental status, r espiratory distress. CT abdomen and pelvis revealed possible bowel obstruction with volvulus. On 02/11/2019, she underwent an expiratory laparotomy and right hemicolectomy. Now with: 1) Worsening leukocytosis with elevated lactate: Concerning for new sepsis. Source could be bilateral pneumonia versus occult intra-abdominal abscess versus reactive. Of note, patient was started on steroids yesterday. No indwelling central line or Sadler catheter present. 2) Bilateral pneumonia, HCAP with acute respiratory failure: Requiring BiPAP. Treat with empiric cefepime and vancomycin. 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 Surgical incision appears to be healing well. Patient is on tube feeds. 4) Acute encephalopathy: metabolic, possibly septic. 5) Acute GI bleed: GI following. Recs: Discontinue levofloxacin Started on IV cefepime and vancomycin Worsening lactate, we will order CT chest abdomen pelvis with IV contrast monitor WBC Will follow. Erickson Restrepo MD [facility] C: [phone] O: [phone] F: [phone]
[2019-02-17] MEDS: PULMICORT IH SCH ×2 (09:06→19:27)
[2019-02-17] MEDS: BROVANA NEBU IH SCH ×2 (09:06→19:27)
[2019-02-17] MEDS ORDERED: VANCOMYCIN IV ONE (09:07)
[2019-02-17] MEDS ORDERED: NACL 0.9% IV ONE (09:07)
[2019-02-17] MEDS: D5W/0.45% NACL/KCL 20 MEQ 20 MEQ/1,000 ML BAG IV SCH (09:16)
[2019-02-17] MEDS: LOVENOX SUB-Q SCH (09:17)
[2019-02-17] MEDS: PROTONIX IV SCH (09:18)
[2019-02-17] MEDS: SODIUM CHLORIDE FLUSH SYRINGE 10 ML IV SCH ×2 (09:21→22:20)
[2019-02-17] MEDS ORDERED: VANCOMYCIN 750 MG in NACL 0.9% 250ML 250 ML IV SCH (09:30)
[2019-02-17] MEDS ORDERED: VANCOMYCIN PHARMACY TO DOSE IV SCH (10:00)
--- NOTE | 2019-02-17 10:40 | Cat Scan Report ---
PROCEDURE: CT CHEST WO CON TECHNIQUE: CT of the chest performed. No IV contrast administered. Axial images and coronal and sagit flynn reformatted images were obtained. HISTORY: leucocytosis. Pneumonia. Post abdominal surgery COMPARISON: None FINDINGS: There are coronary artery calcifications. There are atherosclerotic calcifications in the thoracic aorta. There is infiltrate in the right upper lobe and right lower lobe. There is some infiltrate and/or ate lectasis at the left lung base. There is trace left pleural fluid. There are some dependent secretion s within the trachea. There is no abnormal mediastinal or hilar mass seen. There is no pneumothorax seen. Feeding tube terminates in the stomach. IMPRESSION: Multifocal infiltrates are concerning for pneumonia. Dependent secretions seen in the trachea. This document is electronically signed by Claudia Staples MD., February 17 2019 11:38:12 AM ET
--- NOTE | 2019-02-17 10:54 | Cat Scan Report ---
PROCEDURE: CT ABDOMEN PELVIS W CON TECHNIQUE: CT of the abdomen and pelvis was performed. IV contrast was administered. Axial images and coronal and sagittal reformatted images were obtained. HISTORY: leucocytosis. Pneumonia. Post abdominal surgery COMPARISON: 02/09/2019 FINDINGS: There are infiltrates seen at the lung bases. There is trace left pleural fluid. The visualized liver, spleen, pancreas, adrenal glands and kidneys demonstrate no significant abnorma lity. The gallbladder is contracted. There is a mid to distal infrarenal abdominal aortic aneurysm extending from the immediate infrarenal region to the bifurcation. Maximum diameter is 4.9 cm AP. This measures slightly larger than maximum diameter of 4.7 cm on the previous. Differences may be technical. There is a large amount of mural t hrombus. There is no aneurysm leak or rupture seen. Previously seen dilated bowel has significantly improved. There are some mildly dilated loops in the pelvis. This may relate to postoperative ileus. There is a small amount of ascites in the pelvis. Overall, ascites has improved. No discrete abscess identified. Bowel loops on the right side of the abdomen demonstrates some wall/fold thickening suggestive of chelsey ma. There is diffuse subcutaneous edema and edema in the mesentery. There is no free air. IMPRESSION: Infiltrates at the lung bases. Trace left pleural fluid. Improved ascites. There is some persistent ascites in the lower abdomen/pelvis. Generalized edema. Bowel loop on the right side of the abdomen demonstrate some edematous appearing folds/wall thickenin g. Significance unclear. This could be enteritis or may be related to the generalized edema. Mildly dilated fluid containing bowel loops in the lower abdomen/pelvis also seen which may reflect p ostoperative ileus, less likely obstruction. No abscess seen. 4.9 cm abdominal aortic aneurysm. This measures slightly larger as compared to prior maximum dimensio n of 4.7 cm. This document is electronically signed by Claudia Staples MD., February 17 2019 11:52:54 AM ET
[2019-02-17] MEDS: VANCOMYCIN 750 MG in NACL 0.9% 250ML 250 ML IV SCH (11:00)
[2019-02-17] MEDS: MAXIPIME/NS 1 GM/100 ML 1 GM/100 ML BAG IV SCH ×2 (11:00→22:20)
--- NOTE | 2019-02-17 11:19 | Progress Note ---
Assessment and Plan Assessment and plan: Sepsis, recurrent. Worsening leukocytosis with elevated lactate: Concerning for new sepsis. Source could be bilateral pneumonia versus occult intra-abdominal abscess versus reactive. Acute hypoxemic respiratory failure. Patient with with acute respiratory failure: Requiring BiPAP. Bilateral pneumonia, HCAP. ID following and recommends empiric cefepime and vancomycin. GI bleed/melena. Patient with melena yesterday morning. No hematemesis, hematochezia or further signs of bleeding. ? Ulcer give a history of NSAID use. Patient unable to undergo EGD due to instability/comorbidities. GI fo llowing. Bleeding scan vs CTA if overt bleeding develops. Continue PPI and supportive care. -continue PPI and supportive care Cecal volvulus and large Bowel obstruction. S/p exploratory laparotomy and right hemicolectomy. Followed by Gen. Surgery. Pureed diet with thin liquids as per speech therapy. Will need protein supplements once she is tolerating diet. Continue dobhoff to supplement nutrition with TF. Acute chronic obstructive pulmonary disease exacerbation. Continue steroid taper. Bronchodilators and nebulizer treatment. Pulmonary following. Acute systolic congestive heart failure exacerbation(EF 20-25%). Strict intake and output monitoring Hypokalemia, resolved Elevated serum troponin. Etiology likely secondary to #1. ? Type II ID. Adult failure to thrive and cachexia. PT/OT recommended subacute rehabilitation. Speech found no evidence of aspiration. Dysphagia diet with pured and thin liquids. Thrombocytopenia Continuing to trend platelet counts. Disposition. Transfer to telemetry History Interval history: Patient is about 71-year-old female with PMHx of CHF, COPD, who was brought to the ER by EMS after a fall at home, altered mental status, respiratory distress. Per EMS patient was found in severe respiratory distress, laying on the floor and covered in her feces. According to EMS the had asked a neighbor to call EMS because the patient fell on the floor and he was unable to pick her up. He states that she had been sick for a few days, she had trouble breathing, and he had been taking a lot of "goody powder" for pain. On arrival to the ER patient was lethargic, responded to name, her blood pressure was 80/54, the temperature was 97.1, respiration was 40 BPM, she had h&h of 1.9/7.1, GI was consulted and she was admitted for acute GI bleed, acute blood loss anemia, CHF (BNP was 9100) and COPD exacerbation. respiratory failure worsened, so was intubated. She was seen by GI Physician, put on Protonix iv, but EGD not done because unstable. Patient with vomiting vomiting and CT revealed poss bowel obstruction, surg consulted and evaluated her. The patient underwent exploratory laparotomy, right hemicolectomy for cecal volvulus and large bowel obstruction. Patient was extubated on 02/04/19. Patient has some improvement and has been started on pured diet with thin liquids as per speech therapy recommendations. Dobbhoff was inserted to supplement nutrition with TF at 10 mL an hour. Physical therapy evaluated the patient and suggested subacute rehabilitation. Patient complaining of abdominal pain this morning. Hospitalist Physical - Constitutional Vitals: Temp Pulse Resp BP Pulse Ox 97.2 F L 98 H 22 129/73 100 02/17/19 08:00 02/17/19 09:06 02/17/19 09:06 02/17/19 09:01 02/17/19 09:05 General appearance: Present: no acute distress, cachectic - EENT Eyes: Present: PERRL, EOM intact ENT: hearing intact, clear oral mucosa, dentition normal - Neck Neck: Present: supple, normal ROM - Respiratory Respiratory effort: normal Respiratory: bilateral: CTA - Cardiovascular Rhythm: regular Heart Sounds: Present: S1 & S2. Absent: gallop, rub - Extremities Extremities: no ischemia, No edema, Full ROM - Abdominal General gastrointestinal: soft, non-tender, non-distended, normal bowel sounds - Integumentary Integumentary: Present: clear, warm, dry - Neurologic Neurologic: CNII-XII intact, moves all extremities Results - Labs CBC & Chem 7: 02/17/19 04:56 02/17/19 04:56 Labs: Laboratory Last Values WBC 28.9 K/mm3 (4.5-11.0) H 02/17/19 04:56 RBC 3.52 M/mm3 (3.65-5.03) L 02/17/19 04:56 Hgb 9.9 gm/dl (10.1-14.3) L 02/17/19 04:56 Hct 30.8 % (30.3-42.9) 02/17/19 04:56 MCV 88 fl (79-97) 02/17/19 04:56 MCH 28 pg (28-32) 02/17/19 04:56 MCHC 32 % (30-34) 02/17/19 04:56 RDW 19.8 % (13.2-15.2) H 02/17/19 04:56 Plt Count 327 K/mm3 (140-440) 02/17/19 04:56 Lymph % (Auto) 17.6 % (13.4-35.0) 02/03/19 18:06 [place] % (Auto) 10.1 % (0.0-7.3) H 02/03/19 18:06 Eos % (Auto) 0.1 % (0.0-4.3) 02/03/19 18:06 Baso % (Auto) 1.0 % (0.0-1.8) 02/03/19 18:06 Lymph # 1.1 K/mm3 (1.2-5.4) L 02/03/19 18:06 [place] # 0.6 K/mm3 (0.0-0.8) 02/03/19 18:06 Eos # 0.0 K/mm3 (0.0-0.4) 02/03/19 18:06 Baso # 0.1 K/mm3 (0.0-0.1) 02/03/19 18:06 Add Manual Diff Complete 02/17/19 04:56 Total Counted 200 02/17/19 04:56 Seg Neutrophils % [employer] 02/17/19 04:56 Seg Neuts % (Manual) 91.0 % (40.0-70.0) H 02/17/19 04:56 6.5 % 02/17/19 04:56 0.5 % (13.4-35.0) L 02/17/19 04:56 Reactive Lymphs % (Man) 0 % 02/17/19 04:56 1.5 % (0.0-7.3) 02/17/19 04:56 0 % (0.0-4.3) 02/17/19 04:56 0 % (0.0-1.8) 02/17/19 04:56 0 % 02/17/19 04:56 0.5 % 02/17/19 04:56 0 % 02/17/19 04:56 0 % 02/17/19 04:56 Nucleated RBC % Not Reportable 02/17/19 04:56 Seg Neutrophils # 4.5 K/mm3 (1.8-7.7) 02/03/19 18:06 Seg Neutrophils # Man 26.3 K/mm3 (1.8-7.7) H 02/17/19 04:56 Band Neutrophils # 1.9 K/mm3 02/17/19 04:56 0.1 K/mm3 (1.2-5.4) L 02/17/19 04:56 Abs React Lymphs (Man) 0.0 K/mm3 02/17/19 04:56 0.4 K/mm3 (0.0-0.8) 02/17/19 04:56 0.0 K/mm3 (0.0-0.4) 02/17/19 04:56 0.0 K/mm3 (0.0-0.1) 02/17/19 04:56 0.0 K/mm3 02/17/19 04:56 0.1 K/mm3 02/17/19 04:56 0.0 K/mm3 02/17/19 04:56 Blast Cells # 0.0 K/mm3 02/17/19 04:56 Pathologist Review TNR 02/16/19 04:47 WBC Morphology Not Reportable 02/17/19 04:56 Hypersegmented Neuts Not Reportable 02/17/19 04:56 Hyposegmented Neuts Not Reportable 02/17/19 04:56 Hypogranular Neuts Not Reportable 02/17/19 04:56 Not Reportable 02/17/19 04:56 Not Reportable 02/17/19 04:56 Not Reportable 02/17/19 04:56 Not Reportable 02/17/19 04:56 Not Reportable 02/17/19 04:56 Not Reportable 02/17/19 04:56 Consistent w auto 02/17/19 04:56 Not Reportable 02/17/19 04:56 Plt Clumps, EDTA Not Reportable 02/17/19 04:56 Not Reportable 02/17/19 04:56 Not Reportable 02/17/19 04:56 Not Reportable 02/17/19 04:56 Plt Morphology Comment Not Reportable 02/17/19 04:56 RBC Morphology Not Reportable 02/17/19 04:56 Dimorphic RBCs Not Reportable 02/17/19 04:56 Not Reportable 02/17/19 04:56 Not Reportable 02/17/19 04:56 Not Reportable 02/17/19 04:56 1+ 02/17/19 04:56 Not Reportable 02/17/19 04:56 Not Reportable 02/17/19 04:56 Not Reportable 02/17/19 04:56 Not Reportable 02/17/19 04:56 Not Reportable 02/17/19 04:56 Not Reportable 02/17/19 04:56 Not Reportable 02/17/19 04:56 Not Reportable 02/17/19 04:56 Not Reportable 02/17/19 04:56 Not Reportable 02/17/19 04:56 Not Reportable 02/17/19 04:56 Not Reportable 02/17/19 04:56 Not Reportable 02/17/19 04:56 Not Reportable 02/17/19 04:56 Not Reportable 02/17/19 04:56 Acanthocytes (Spur) Not Reportable 02/17/19 04:56 Rouleaux Not Reportable 02/17/19 04:56 Not Reportable 02/17/19 04:56 Not Reportable 02/17/19 04:56 Not Reportable 02/17/19 04:56 Not Reportable 02/17/19 04:56 Hem Pathologist Commnt No 02/17/19 04:56 PT 19.3 Sec. (12.2-14.9) H 02/03/19 19:24 INR 1.52 (0.87-1.13) H 02/03/19 19:24 APTT 30.3 Sec. (24.2-36.6) 02/03/19 19:24 POC ABG pH 7.462 (7.35-7.45) H 02/16/19 15:30 POC ABG pCO2 33.5 (35-45) L 02/12/19 05:44 POC ABG pO2 118 (80-105) H 02/12/19 05:44 POC ABG HCO3 14.6 (22-26 mml/L) 02/16/19 15:30 POC ABG Total CO2 15 (23-27mmol/L) 02/16/19 15:30 POC ABG O2 Sat 86 02/16/19 15:30 POC ABG Base Excess -9 ((-2) - (+3)mmol/L) 02/16/19 15:30 50 % 02/16/19 15:30 Sodium 132 mmol/L (137-145) L 02/17/19 04:56 Potassium 4.2 mmol/L (3.6-5.0) 02/17/19 04:56 Chloride 105.1 mmol/L (98-107) 02/17/19 04:56 Carbon Dioxide 17 mmol/L (22-30) L 02/17/19 04:56 14 mmol/L 02/17/19 04:56 BUN 11 mg/dL (7-17) 02/17/19 04:56 0.3 mg/dL (0.7-1.2) L 02/17/19 04:56 Estimated GFR > 60 ml/min 02/17/19 04:56 37 % 02/17/19 04:56 Glucose 125 mg/dL (65-100) H 02/17/19 04:56 POC Glucose 147 (70-105) H 02/12/19 11:54 Lactic Acid 2.40 mmol/L (0.7-2.0) H* 02/17/19 10:22 Calcium 9.2 mg/dL (8.4-10.2) 02/17/19 04:56 Phosphorus 3.10 mg/dL (2.5-4.5) 02/13/19 04:33 Magnesium 1.90 mg/dL (1.7-2.3) 02/13/19 04:33 0.30 mg/dL (0.1-1.2) 02/03/19 18:08 AST 35 units/L (5-40) 02/03/19 18:08 ALT 27 units/L (7-56) 02/03/19 18:08 117 units/L (35-129) 02/03/19 18:08 0.058 ng/mL (0.00-0.029) H D 02/08/19 18:52 2.20 mg/dL (0.00-1.30) H 02/16/19 15:58 NT-Pro-B Natriuret Pep 9160 pg/mL (0-900) H 02/03/19 18:06 5.1 g/dL (6.3-8.2) L 02/03/19 18:08 2.8 g/dL (3.9-5) L 02/03/19 18:08 1.2 % 02/03/19 18:08 Triglycerides 164 mg/dL (2-149) H 02/03/19 18:08 Cholesterol 125 mg/dL (50-199) 02/03/19 18:08 75 mg/dL (50-130) 02/03/19 18:08 31 mg/dL (40-59) L 02/03/19 18:08 4.03 % 02/03/19 18:08 Yellow (Yellow) 02/03/19 02:57 Clear (Clear) 02/03/19 02:57 6.0 (5.0-7.0) 02/03/19 02:57 Ur Specific [place] 1.011 (1.003-1.030) 02/03/19 02:57 <15 mg/dl mg/dL (Negative) 02/03/19 02:57 Neg mg/dL (Negative) 02/03/19 02:57 Neg mg/dL (Negative) 02/03/19 02:57 Neg (Negative) 02/03/19 02:57 Neg (Negative) 02/03/19 02:57 Neg (Negative) 02/03/19 02:57 < 2.0 mg/dL (<2.0) 02/03/19 02:57 Ur Leukocyte Esterase Neg (Negative) 02/03/19 02:57 7.0 /HPF (0.0-6.0) H 02/03/19 02:57 8.0 /HPF (0.0-6.0) 02/03/19 02:57 U Epithel Cells (Auto) 1.0 /HPF (0-13.0) 02/03/19 02:57 2+ /HPF (Negative) 02/03/19 02:57 Hyaline Casts 22 /LPF 02/03/19 02:57 3+ /HPF 02/03/19 02:57 Blood Type A POSITIVE 02/03/19 18:06 Antibody Screen Negative 02/03/19 18:06 Crossmatch See Detail 02/03/19 18:06 Active Medications - Current Medications Current Medications: Generic Name Dose Route Start Last Admin Trade Name Freq PRN Reason Stop Dose Admin Albuterol/Ipratropium 1 ampul 02/04/19 02:00 02/17/19 09:06 Duoneb *Not For Prn Use* IH Not Given Q6HRT [facility] Lipase/Protease/Amylase 1 each 02/08/19 16:37 Juan Smith 10,500 Unit FEEDTUBE PRN PRN For Clogged Feeding Tube Arformoterol Tartrate 15 mcg 02/04/19 14:15 02/17/19 09:06 Brovana Nebu IH 15 mcg Q12HRT JOEL Administration Budesonide 0.5 mg 02/04/19 20:00 02/17/19 09:06 Pulmicort IH 0.5 mg Q12HRT JOEL Administration Enoxaparin Sodium 30 mg 02/14/19 14:00 02/17/19 09:17 Lovenox SUB-Q 30 mg DAILY JOEL Administration Hydrophilic Ointment 1 applic 02/06/19 10:50 Vaseline Lip Therapy TP Q2HR PRN Dry Lips Potassium Chloride/Dextrose/Sod Cl 20 meq in 1,000 mls @ 60 mls/hr 02/12/19 19:00 02/17/19 09:16 D5w/0.45% Nacl/Kcl 20 Meq IV 60 mls/hr DIRECT JOEL Administration Cefepime HCl 1 gm in 100 mls @ 200 mls/hr 02/17/19 10:00 Maxipime/Ns 1 Gm/100 Ml IV Q12HR [facility] Protocol Vancomycin HCl 750 mg/ Sodium 265 mls @ 176.667 mls/hr 02/17/19 10:00 Chloride IV Q24H [facility] Methylprednisolone Sodium Succinate 60 mg 02/16/19 18:00 02/17/19 09:24 Solu-Medrol IV 60 mg Q8H JOEL Administration Morphine Sulfate 1 mg 02/12/19 14:00 02/16/19 09:54 Morphine IV 1 mg Q4H PRN Administration Pain , Severe (7-10) Multi-Ingred Cream/Lotion/Oil/Oint 1 applic 02/06/19 10:50 Artificial Tears Ophth Oint OU Q4HR PRN Dry Eye(s) Ondansetron HCl 4 mg 02/03/19 20:27 02/09/19 16:37 Zofran IV 4 mg Q8H PRN Administration Nausea And Vomiting Pantoprazole Sodium 40 mg 02/09/19 19:00 02/17/19 09:18 Protonix IV 40 mg QDAY JOEL Administration Simple Syrup 15 ml 02/08/19 16:37 Simple Syrup FEEDTUBE PRN PRN Hypoglycemia Simple Syrup 30 ml 02/08/19 16:37 Simple Syrup FEEDTUBE PRN PRN Hypoglycemia Sodium Bicarbonate 325 mg 02/08/19 16:37 Sodium Bicarbonate FEEDTUBE PRN PRN For Clogged Feeding Tube Sodium Chloride 10 ml 02/03/19 22:00 02/17/19 09:21 Sodium Chloride Flush Syringe 10 Ml IV 10 ml BID JOEL Administration Sodium Chloride 10 ml 02/03/19 20:27 Sodium Chloride Flush Syringe 10 Ml IV PRN PRN LINE FLUSH Tramadol HCl 25 mg 02/15/19 11:13 02/15/19 18:29 Ultram FEEDTUBE 25 mg Q4H PRN Administration Pain, Moderate (4-6) Nutrition/Malnutrition Assess - Dietary Evaluation Nutrition/Malnutrition Findings: Nutrition Notes Start: 02/04/19 14:37 Freq: Status: Active Protocol: Document 02/14/19 09:52 LP (Rec: 02/14/19 09:57 LP [id number]) Nutrition Notes Initial or Follow up Reassessment Current Diagnosis Heart Failure,Respiratory Failure Other Pertinent Diagnosis AMS Current Diet NPO Labs/Tests Reviewed Pertinent Medications Reviewed Height 5 ft 3 in Weight 38.4 kg [place] Body Weight (kg) 52.27 BMI 15.0 Subjective/Other Information Pt diet advanced to pureed but has poor appetite so dobhoff has been placed. Burn Absent Trauma Absent #1 Nutrition Diagnosis Inadequate oral intake Diagnosis Progress(for reassessment Continues documentation) Is patient on ventilator? No Is Patient Ambulatory and/or Out of Bed No REE-([facility]-confined to bed) 1054.008 Kcal/Kg value to use for calculation 40 Approximate Energy Requirements Using 1536 kcal/Kg Calculation Used for Recommendations Kcal/kg Additional Notes Pro needs 1.2-2g/k-72g/ day Fluid needs 1ml/kcal Nutrition Intervention Nutrition Support: Glucerna 1.2 at 45ml/hr. Flush with 100ml q4h Kcal 1,296 Protein (gm) 65 Fluid (mL) 869 Goal #1 Meet at least 80% of kcal and protein needs Anticipated Discharge Needs: Unable to determine at this time Follow-Up By: 02/18/19 Additional Comments Follow for TF start/tolerance
--- NOTE | 2019-02-17 11:32 | Progress Note ---
Assessment and Plan - Patient Problems (1) Cecal volvulus Current Visit: Yes Status: Acute Plan to address problem: 68 yo F s/p exploratory laparotomy, right hemicolectomy POD6, for cecal volvulus and large bowel obstruction 1. ARF - now off vent 2. anemia 3. GIB - no further melena/bloody BM 4. n/v, SBO 5. hx CHF, EF 20-25% Plan: 1. may advance TF as tolerated to goal 2. pureed diet with thin liquids as per speech therapy. Will need protein dawkins pplements once she is tolerating diet 3. dc IVF when taking more PO 4. protonix IV 5. DVT ppx 6. prn PO pain control 7. OOB/PT 8. PNA - mgmt per ID and Pulm 9. abdominal pain - probably secondary to bladder distention. CT reviewed. Asked Dr. Frank to have castillo placed. Will likely need rehab upon dc. Discussed plan with RN. Subjective Date of service: 02/17/19 Patient Reports: Positive: no new complaints, feels better (abdomen; breathing better), flatus, bowel movement. Negative: nausea, vomiting Objective Vital Signs - 12hr 02/17/19 02/17/19 02/17/19 00:00 01:00 01:20 Temperature 98.9 F Pulse Rate 86 97 H Pulse Rate [ 94 H Bilateral Bases ] Respiratory 27 H 28 H Rate Respiratory 26 H Rate [Bilateral Bases] Blood Pressure 127/70 114/69 O2 Sat by Pulse 100 92 Oximetry 02/17/19 02/17/19 02/17/19 01:35 02:00 03:00 Temperature Pulse Rate 96 H 88 Pulse Rate [ 99 H Bilateral Bases ] Respiratory 33 H 22 Rate Respiratory 22 Rate [Bilateral Bases] Blood Pressure 124/74 123/70 O2 Sat by Pulse 100 100 Oximetry 02/17/19 02/17/19 02/17/19 03:19 04:00 05:00 Temperature 98.7 F Pulse Rate 99 H 86 96 H Pulse Rate [ Bilateral Bases ] Respiratory 24 21 27 H Rate Respiratory Rate [Bilateral Bases] Blood Pressure 114/69 146/86 141/85 O2 Sat by Pulse 88 100 97 Oximetry 02/17/19 02/17/19 02/17/19 06:00 07:00 08:00 Temperature 97.2 F L Pulse Rate 77 84 93 H Pulse Rate [ 99 H Bilateral Bases ] Respiratory 21 20 23 Rate Respiratory 22 Rate [Bilateral Bases] Blood Pressure 125/67 130/72 120/69 O2 Sat by Pulse 99 99 98 Oximetry 02/17/19 02/17/19 02/17/19 09:00 09:01 09:05 Temperature Pulse Rate 92 H 91 H Pulse Rate [ Bilateral Bases ] Respiratory 22 20 Rate Respiratory Rate [Bilateral Bases] Blood Pressure 129/73 129/73 O2 Sat by Pulse 100 100 100 Oximetry 02/17/19 02/17/19 02/17/19 09:06 10:00 10:41 Temperature Pulse Rate 92 H Pulse Rate [ 98 H Bilateral Bases ] Respiratory Rate Respiratory 22 Rate [Bilateral Bases] Blood Pressure 129/73 O2 Sat by Pulse 100 Oximetry 02/17/19 11:00 Temperature Pulse Rate 92 H Pulse Rate [ Bilateral Bases ] Respiratory 20 Rate Respiratory Rate [Bilateral Bases] Blood Pressure 107/63 O2 Sat by Pulse 100 Oximetry - General physical appearance no distress, no pain, other (breathing easier. Seems more relaxed) - Abdomen soft, not tender, bowel sounds hypoactive, not distended, not guarding, not rigid, surgical scars (C/D/I) - Integumentary no rash, no growths, no abnormal pigmentation - Labs 02/17/19 04:56 02/17/19 04:56 Diabetes panel 02/17/19 Range/Units 04:56 Sodium 132 L (137-145) mmol/L Potassium 4.2 (3.6-5.0) mmol/L Chloride 105.1 (98-107) mmol/L Carbon Dioxide 17 L (22-30) mmol/L BUN 11 (7-17) mg/dL Creatinine 0.3 L (0.7-1.2) mg/dL Glucose 125 H (65-100) mg/dL Calcium 9.2 (8.4-10.2) mg/dL Calcium panel 02/17/19 Range/Units 04:56 Calcium 9.2 (8.4-10.2) mg/dL Pituitary panel 02/17/19 Range/Units 04:56 Sodium 132 L (137-145) mmol/L Potassium 4.2 (3.6-5.0) mmol/L Chloride 105.1 (98-107) mmol/L Carbon Dioxide 17 L (22-30) mmol/L BUN 11 (7-17) mg/dL Creatinine 0.3 L (0.7-1.2) mg/dL Glucose 125 H (65-100) mg/dL Calcium 9.2 (8.4-10.2) mg/dL Adrenal panel 02/17/19 Range/Units 04:56 Sodium 132 L (137-145) mmol/L Potassium 4.2 (3.6-5.0) mmol/L Chloride 105.1 (98-107) mmol/L Carbon Dioxide 17 L (22-30) mmol/L BUN 11 (7-17) mg/dL Creatinine 0.3 L (0.7-1.2) mg/dL Glucose 125 H (65-100) mg/dL Calcium 9.2 (8.4-10.2) mg/dL
--- NOTE | 2019-02-17 15:37 | Gastroenterology Progress Note ---
Assessment and Plan 1.GI bleed 2.melena 3.anemia -H/H stable. -Brown stool without blood today. No overt signs of active GI bleeding at this time. -etiology unclear- possibly sequela given stable H/H (ulcer vs old blood from ileocolic staple line?). Patient was originally admitted with UGIB (possible ulcer given hx of NSAID use vs other) but was unable to undergo EGD due to instability -no plan for scope at this time given no signs of active GI bleeding. -CT abdomen/pelvis with possible enteritis. -continue PPI and supportive care -will sign off at this time. Please call back with questions. 4.severe sepsis with shock 5.acute hypoxemic respiratory failure: CT chest on 02/17/2019 with multifocal infiltrates likely pneumonia. 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 Bleed; Septic Shock Interval history: Patient transferred to step down for respiratory distress. CT chest and abdomen done. Per nursing, had brown stool without any blood. Objective - Constitutional Vitals: Temp Pulse Resp BP Pulse Ox 97.6 F 97 H 23 103/58 92 02/17/19 12:00 02/17/19 15:00 02/17/19 15:00 02/17/19 15:00 02/17/19 15:00 - EENT Eyes: EOM intact ENT: hearing intact - Neck Neck: supple - Respiratory Respiratory: bilateral: diminished - Cardiovascular Rhythm: regular Heart Sounds: Present: S1 & S2 - Extremities Extremities: No edema - Gastrointestinal General gastrointestinal: Present: soft, tender, non-distended - Integumentary Integumentary: Present: clear, warm - Neurologic Neurological: alert and oriented x3 - Labs CBC & Chem 7: 02/17/19 04:56 02/17/19 04:56 Labs: Laboratory Results - last 24 hr 02/16/19 02/16/19 02/16/19 04:47 15:30 15:58 WBC RBC Hgb Hct MCV MCH MCHC RDW Plt Count Add Manual Diff Total Counted Seg Neutrophils % Seg Neuts % (Manual) Band Neutrophils % Lymphocytes % (Manual) Reactive Lymphs % (Man) Monocytes % (Manual) Eosinophils % (Manual) Basophils % (Manual) Metamyelocytes % Myelocytes % Promyelocytes % Blast Cells % Nucleated RBC % Seg Neutrophils # Man Band Neutrophils # Lymphocytes # (Manual) Abs React Lymphs (Man) Monocytes # (Manual) Eosinophils # (Manual) Basophils # (Manual) Metamyelocytes # Myelocytes # Promyelocytes # Blast Cells # Pathologist Review TNR WBC Morphology Hypersegmented Neuts Hyposegmented Neuts Hypogranular Neuts Smudge Cells Toxic Granulation Toxic Vacuolation Dohle Bodies Pelger-Huet Anomaly Fermin Rods Platelet Estimate Clumped Platelets Plt Clumps, EDTA Large Platelets Giant Platelets Platelet Satelliting Plt Morphology Comment RBC Morphology Dimorphic RBCs Polychromasia Hypochromasia Poikilocytosis Anisocytosis Microcytosis Macrocytosis Spherocytes Pappenheimer Bodies Sickle Cells Target Cells Tear Drop Cells Ovalocytes Helmet Cells Sharp-Rosita Bodies [place] Rings Juliet Cells Bite Cells Crenated Cell Elliptocytes Acanthocytes (Spur) Rouleaux Hemoglobin C Crystals Schistocytes Malaria parasites Kendall Bodies Hem Pathologist Commnt No POC ABG pH 7.462 H POC ABG HCO3 14.6 POC ABG Total CO2 15 POC ABG O2 Sat 86 POC ABG Base Excess -9 FiO2 50 Sodium Potassium Chloride Carbon Dioxide Anion Gap BUN Creatinine Estimated GFR BUN/Creatinine Ratio Glucose Lactic Acid Calcium C-Reactive Protein 2.20 H 02/16/19 02/16/19 02/17/19 15:58 18:01 04:56 WBC 28.9 H RBC 3.52 L Hgb 9.9 L Hct 30.8 MCV 88 MCH 28 MCHC 32 RDW 19.8 H Plt Count 327 Add Manual Diff Complete Total Counted 200 Seg Neutrophils % Auto Body Estimator Seg Neuts % (Manual) 91.0 H Band Neutrophils % 6.5 Lymphocytes % (Manual) 0.5 L Reactive Lymphs % (Man) 0 Monocytes % (Manual) 1.5 Eosinophils % (Manual) 0 Basophils % (Manual) 0 Metamyelocytes % 0 Myelocytes % 0.5 Promyelocytes % 0 Blast Cells % 0 Nucleated RBC % Not Reportable Seg Neutrophils # Man 26.3 H Band Neutrophils # 1.9 Lymphocytes # (Manual) 0.1 L Abs React Lymphs (Man) 0.0 Monocytes # (Manual) 0.4 Eosinophils # (Manual) 0.0 Basophils # (Manual) 0.0 Metamyelocytes # 0.0 Myelocytes # 0.1 Promyelocytes # 0.0 Blast Cells # 0.0 Pathologist Review WBC Morphology Not Reportable Hypersegmented Neuts Not Reportable Hyposegmented Neuts Not Reportable Hypogranular Neuts Not Reportable Smudge Cells Not Reportable Toxic Granulation Not Reportable Toxic Vacuolation Not Reportable Dohle Bodies Not Reportable Pelger-Huet Anomaly Not Reportable Fermin Rods Not Reportable Platelet Estimate Consistent w auto Clumped Platelets Not Reportable Plt Clumps, EDTA Not Reportable Large Platelets Not Reportable Giant Platelets Not Reportable Platelet Satelliting Not Reportable Plt Morphology Comment Not Reportable RBC Morphology Not Reportable Dimorphic RBCs Not Reportable Polychromasia Not Reportable Hypochromasia Not Reportable Poikilocytosis Not Reportable Anisocytosis 1+ Microcytosis Not Reportable Macrocytosis Not Reportable Spherocytes Not Reportable Pappenheimer Bodies Not Reportable Sickle Cells Not Reportable Target Cells Not Reportable Tear Drop Cells Not Reportable Ovalocytes Not Reportable Helmet Cells Not Reportable Sharp-[place]ita Bodies Not Reportable [place] Rings Not Reportable [place] Cells Not Reportable Bite Cells Not Reportable Crenated Cell Not Reportable Elliptocytes Not Reportable Acanthocytes (Spur) Not Reportable Rouleaux Not Reportable Hemoglobin C Crystals Not Reportable Schistocytes Not Reportable Malaria parasites Not Reportable Kendall Bodies Not Reportable Hem Pathologist Commnt No POC ABG pH POC ABG HCO3 POC ABG Total CO2 POC ABG O2 Sat POC ABG Base Excess FiO2 Sodium Potassium Chloride Carbon Dioxide Anion Gap BUN Creatinine Estimated GFR BUN/Creatinine Ratio Glucose Lactic Acid 2.20 H* 2.80 H* Calcium C-Reactive Protein 02/17/19 02/17/19 02/17/19 04:56 04:56 07:56 WBC RBC Hgb Hct MCV MCH MCHC RDW Plt Count Add Manual Diff Total Counted Seg Neutrophils % Seg Neuts % (Manual) Band Neutrophils % Lymphocytes % (Manual) Reactive Lymphs % (Man) Monocytes % (Manual) Eosinophils % (Manual) Basophils % (Manual) Metamyelocytes % Myelocytes % Promyelocytes % Blast Cells % Nucleated RBC % Seg Neutrophils # Man Band Neutrophils # Lymphocytes # (Manual) Abs React Lymphs (Man) Monocytes # (Manual) Eosinophils # (Manual) Basophils # (Manual) Metamyelocytes # Myelocytes # Promyelocytes # Blast Cells # Pathologist Review WBC Morphology Hypersegmented Neuts Hyposegmented Neuts Hypogranular Neuts Smudge Cells Toxic Granulation Toxic Vacuolation Dohle Bodies Pelger-Huet Anomaly Fermin Rods Platelet Estimate Clumped Platelets Plt Clumps, EDTA Large Platelets Giant Platelets Platelet Satelliting Plt Morphology Comment RBC Morphology Dimorphic RBCs Polychromasia Hypochromasia Poikilocytosis Anisocytosis Microcytosis Macrocytosis Spherocytes Pappenheimer Bodies Sickle Cells Target Cells Tear Drop Cells Ovalocytes Helmet Cells Sharp-Rosita Bodies [place] Rings Juliet Cells Bite Cells Crenated Cell Elliptocytes Acanthocytes (Spur) Rouleaux Hemoglobin C Crystals Schistocytes Malaria parasites Kendall Bodies Hem Pathologist Commnt POC ABG pH POC ABG HCO3 POC ABG Total CO2 POC ABG O2 Sat POC ABG Base Excess FiO2 Sodium 132 L Potassium 4.2 Chloride 105.1 Carbon Dioxide 17 L Anion Gap 14 BUN 11 Creatinine 0.3 L Estimated GFR > 60 BUN/Creatinine Ratio 37 Glucose 125 H Lactic Acid 2.10 H* 2.40 H* Calcium 9.2 C-Reactive Protein 02/17/19 02/17/19 09:06 10:22 WBC RBC Hgb Hct MCV MCH MCHC RDW Plt Count Add Manual Diff Total Counted Seg Neutrophils % Seg Neuts % (Manual) Band Neutrophils % Lymphocytes % (Manual) Reactive Lymphs % (Man) Monocytes % (Manual) Eosinophils % (Manual) Basophils % (Manual) Metamyelocytes % Myelocytes % Promyelocytes % Blast Cells % Nucleated RBC % Seg Neutrophils # Man Band Neutrophils # Lymphocytes # (Manual) Abs React Lymphs (Man) Monocytes # (Manual) Eosinophils # (Manual) Basophils # (Manual) Metamyelocytes # Myelocytes # Promyelocytes # Blast Cells # Pathologist Review WBC Morphology Hypersegmented Neuts Hyposegmented Neuts Hypogranular Neuts Smudge Cells Toxic Granulation Toxic Vacuolation Dohle Bodies Pelger-Huet Anomaly Fermin Rods Platelet Estimate Clumped Platelets Plt Clumps, EDTA Large Platelets Giant Platelets Platelet Satelliting Plt Morphology Comment RBC Morphology Dimorphic RBCs Polychromasia Hypochromasia Poikilocytosis Anisocytosis Microcytosis Macrocytosis Spherocytes Pappenheimer Bodies Sickle Cells Target Cells Tear Drop Cells Ovalocytes Helmet Cells Sharp-Rosita Bodies [place] Rings [place] Cells Bite Cells Crenated Cell Elliptocytes Acanthocytes (Spur) Rouleaux Hemoglobin C Crystals Schistocytes Malaria parasites Kendall Bodies Hem Pathologist Commnt POC ABG pH POC ABG HCO3 POC ABG Total CO2 POC ABG O2 Sat POC ABG Base Excess FiO2 Sodium Potassium Chloride Carbon Dioxide Anion Gap BUN Creatinine Estimated GFR BUN/Creatinine Ratio Glucose Lactic Acid 2.20 H* 2.40 H* Calcium C-Reactive Protein - Imaging CT scan: report reviewed
--- NOTE | 2019-02-17 16:48 | Progress Note ---
Assessment and Plan Acute hypoxemic respiratory failure, on continuous noninvasive ventilation. Acute intussusception Symptomatic anemia with positive stool guaiac. Acute chronic obstructive pulmonary disease exacerbation. Possible acute gastrointestinal bleed. Acute congestive heart failure exacerbation. Seceer Sepsis with Shock Systemic inflammatory response syndrome. Hypokalemia. Elevated serum troponin. Adult failure to thrive. - continue BIPAP scheduled qhs with prn daytime use (03/05 rate 20) - continue empiric Levaquin (get ID input re; persistent leucocytosis) - CRP & lactate levels reviewed - complete solumedrol short course - ST evaluation re: ? aspiration - continue wound care per WCT / RN - continue conservative volume management strategies (EF 20-25%) - low dose diuresis re: pulmonary edema component - continue to wean supplemental oxygen to keep O2 sats >/= 88-90%` - continue bronchodilators with pulmonary hygiene per RT - Strict intake and output monitoring - Maintenance of sleep -wake cycle - Mobility protocol for pressure ulcer prophylaxis - continue GI & VTE prophylaxis - Influenza and pneumonia vaccination per protocol ....... care plan discussed with in room also .... care plan discussed with RN/RT/Attending CODE STATUS: FULL CODE Subjective Date of service: 02/17/19 Principal diagnosis: Ac hypoxemic Resp failure; Severe Anemia; AE-COPD; G.I. Bleed; Septic Shock Interval history: Patient is seen today for: Acute hypoxemic Resp failure; Symptomatic anemia; AE- COPD; G.I. Bleed; Acute congestive heart failure exacerbation; Hypotension; SIRS Seen and examined at bedside; 24-hour events reviewed; nursing and respiratory care staff consulted; no adverse overnight events reported to me; resting peacefully in bed; doing better; NO N/V/F/C; still with intermittent BIPAP use Objective Vital Signs - 12hr 02/17/19 02/17/19 02/17/19 05:00 06:00 07:00 Temperature Pulse Rate 96 H 77 84 Pulse Rate [ Bilateral Bases ] Respiratory 27 H 21 20 Rate Respiratory Rate [Bilateral Bases] Blood Pressure 141/85 125/67 130/72 O2 Sat by Pulse 97 99 99 Oximetry 02/17/19 02/17/19 02/17/19 08:00 09:00 09:01 Temperature 97.2 F L Pulse Rate 93 H 92 H 91 H Pulse Rate [ 99 H Bilateral Bases ] Respiratory 23 22 20 Rate Respiratory 22 Rate [Bilateral Bases] Blood Pressure 120/69 129/73 129/73 O2 Sat by Pulse 98 100 100 Oximetry 02/17/19 02/17/19 02/17/19 09:05 09:06 10:00 Temperature Pulse Rate 92 H Pulse Rate [ 98 H Bilateral Bases ] Respiratory Rate Respiratory 22 Rate [Bilateral Bases] Blood Pressure O2 Sat by Pulse 100 Oximetry 02/17/19 02/17/19 02/17/19 10:41 11:00 12:00 Temperature 97.6 F Pulse Rate 92 H 95 H Pulse Rate [ Bilateral Bases ] Respiratory 20 23 Rate Respiratory Rate [Bilateral Bases] Blood Pressure 129/73 107/63 113/64 O2 Sat by Pulse 100 100 100 Oximetry 02/17/19 02/17/19 02/17/19 13:00 14:00 15:00 Temperature Pulse Rate 90 85 97 H Pulse Rate [ 81 Bilateral Bases ] Respiratory 22 20 23 Rate Respiratory 20 Rate [Bilateral Bases] Blood Pressure 119/70 118/69 103/58 O2 Sat by Pulse 100 100 92 Oximetry Constitutional: appears uncomfortable, other (elderly looking petite CF normocephalic witgh increased resp effort at rest; chronically ill looking, cachexia) Eyes: non-icteric ENT: oropharynx moist, other (on supplemental oxygen via nasal canula) Neck: supple, no lymphadenopathy, JVD, other (no thyromegaly) Effort: mildly labored Ascultation: Bilateral: diminished breath sounds (severely), rhonchi (scant in bases), other (occassional accessory muscle use) Percussion: Bilateral: not dull Cardiovascular: irregular rhythm, other (S1,S2, ) Gastrointestinal: hypoactive bowel sounds, soft, non-tender, non-distended, other (no palpable HSM) Integumentary: normal Extremities: no cyanosis, pink and warm, pulses normal, no ischemia or petechiae Neurologic: non-focal exam (grossly), pupils equal and round, CN II-XII normal, other (weak) Psychiatric: mood appropriate, anxious CBC and BMP: 02/20/19 16:20 02/20/19 13:23 ABG, PT/INR, D-dimer: ABG POC ABG pH 7.462 (7.35-7.45) H 02/16/19 15:30 POC ABG HCO3 14.6 (22-26 mml/L) 02/16/19 15:30 POC ABG Total CO2 15 (23-27mmol/L) 02/16/19 15:30 POC ABG O2 Sat 86 02/16/19 15:30 PT/INR, D-dimer PT 19.3 Sec. (12.2-14.9) H 02/03/19 19:24 INR 1.52 (0.87-1.13) H 02/03/19 19:24 Abnormal lab findings: Abnormal Labs 02/03/19 02/03/19 02/03/19 02:57 18:06 18:06 WBC RBC 0.88 L Hgb 1.9 L* Hct 7.1 L* MCH 22 L MCHC 27 L RDW 23.3 H Plt Count 489 H Anderson % (Auto) 10.1 H Lymph # 1.1 L Seg Neutrophils % 71.2 H Seg Neuts % (Manual) Lymphocytes % (Manual) Seg Neutrophils # Man Lymphocytes # (Manual) PT INR POC ABG pH POC ABG pCO2 POC ABG pO2 Sodium Potassium Chloride Carbon Dioxide BUN Creatinine Glucose POC Glucose Lactic Acid Calcium Phosphorus Troponin T C-Reactive Protein NT-Pro-B Natriuret Pep 9160 H Total Protein Albumin Triglycerides HDL Cholesterol Urine WBC (Auto) 7.0 H Crossmatch 02/03/19 02/03/19 02/03/19 18:06 18:08 18:08 WBC RBC Hgb Hct MCH MCHC RDW Plt Count Anderson % (Auto) Lymph # Seg Neutrophils % Seg Neuts % (Manual) Lymphocytes % (Manual) Seg Neutrophils # Man Lymphocytes # (Manual) PT INR POC ABG pH POC ABG pCO2 POC ABG pO2 Sodium Potassium 3.3 L Chloride Carbon Dioxide 17 L BUN Creatinine Glucose POC Glucose Lactic Acid 9.90 H* Calcium 7.9 L Phosphorus Troponin T 0.134 H* C-Reactive Protein NT-Pro-B Natriuret Pep Total Protein 5.1 L Albumin 2.8 L Triglycerides 164 H HDL Cholesterol 31 L Urine WBC (Auto) Crossmatch See Detail 02/03/19 02/03/19 02/03/19 19:24 19:24 19:24 WBC RBC Hgb Hct MCH MCHC RDW Plt Count Anderson % (Auto) Lymph # Seg Neutrophils % Seg Neuts % (Manual) Lymphocytes % (Manual) Seg Neutrophils # Man Lymphocytes # (Manual) PT 19.3 H INR 1.52 H POC ABG pH POC ABG pCO2 POC ABG pO2 Sodium Potassium Chloride Carbon Dioxide BUN Creatinine Glucose POC Glucose Lactic Acid 6.30 H* Calcium Phosphorus Troponin T 0.139 H* C-Reactive Protein NT-Pro-B Natriuret Pep Total Protein Albumin Triglycerides HDL Cholesterol Urine WBC (Auto) Crossmatch 02/03/19 02/03/19 02/04/19 20:30 23:36 01:18 WBC RBC Hgb Hct MCH MCHC RDW Plt Count Anderson % (Auto) Lymph # Seg Neutrophils % Seg Neuts % (Manual) Lymphocytes % (Manual) Seg Neutrophils # Man Lymphocytes # (Manual) PT INR POC ABG pH 7.515 H POC ABG pCO2 POC ABG pO2 121 H Sodium Potassium Chloride Carbon Dioxide BUN Creatinine Glucose POC Glucose Lactic Acid 6.50 H* 5.70 H* Calcium Phosphorus Troponin T C-Reactive Protein NT-Pro-B Natriuret Pep Total Protein Albumin Triglycerides HDL Cholesterol Urine WBC (Auto) Crossmatch 02/04/19 02/04/19 02/04/19 04:35 04:35 04:35 WBC 17.5 H RBC Hgb Hct MCH 27 L MCHC RDW 15.9 H Plt Count Anderson % (Auto) Lymph # Seg Neutrophils % Seg Neuts % (Manual) 96.0 H Lymphocytes % (Manual) 1.0 L Seg Neutrophils # Man 16.8 H Lymphocytes # (Manual) 0.2 L PT INR POC ABG pH POC ABG pCO2 POC ABG pO2 Sodium 147 H Potassium 3.2 L Chloride Carbon Dioxide 21 L BUN Creatinine Glucose 170 H POC Glucose Lactic Acid 3.60 H* Calcium 7.9 L Phosphorus Troponin T C-Reactive Protein NT-Pro-B Natriuret Pep Total Protein Albumin Triglycerides HDL Cholesterol Urine WBC (Auto) Crossmatch 02/04/19 02/04/19 02/04/19 10:59 17:07 17:07 WBC RBC Hgb Hct MCH MCHC RDW Plt Count Anderson % (Auto) Lymph # Seg Neutrophils % Seg Neuts % (Manual) Lymphocytes % (Manual) Seg Neutrophils # Man Lymphocytes # (Manual) PT INR POC ABG pH POC ABG pCO2 POC ABG pO2 Sodium Potassium 3.1 L Chloride Carbon Dioxide BUN Creatinine Glucose POC Glucose Lactic Acid 2.30 H* Calcium Phosphorus Troponin T C-Reactive Protein 9.30 H NT-Pro-B Natriuret Pep Total Protein Albumin Triglycerides HDL Cholesterol Urine WBC (Auto) Crossmatch 02/04/19 02/04/19 02/05/19 17:15 21:04 00:05 WBC RBC Hgb Hct MCH MCHC RDW Plt Count Anderson % (Auto) Lymph # Seg Neutrophils % Seg Neuts % (Manual) Lymphocytes % (Manual) Seg Neutrophils # Man Lymphocytes # (Manual) PT INR POC ABG pH 7.310 L POC ABG pCO2 POC ABG pO2 68 L Sodium Potassium Chloride Carbon Dioxide BUN Creatinine Glucose POC Glucose Lactic Acid 2.40 H* 2.70 H* Calcium Phosphorus Troponin T C-Reactive Protein NT-Pro-B Natriuret Pep Total Protein Albumin Triglycerides HDL Cholesterol Urine WBC (Auto) Crossmatch 02/05/19 02/05/19 02/05/19 04:41 04:41 12:54 WBC 15.1 H RBC Hgb Hct MCH MCHC RDW 16.6 H Plt Count Anderson % (Auto) Lymph # Seg Neutrophils % Seg Neuts % (Manual) 90.0 H Lymphocytes % (Manual) 2.0 L Seg Neutrophils # Man 13.6 H Lymphocytes # (Manual) 0.3 L PT INR POC ABG pH POC ABG pCO2 POC ABG pO2 74 L Sodium 147 H Potassium Chloride 114.1 H Carbon Dioxide 20 L BUN 19 H Creatinine Glucose 192 H POC Glucose Lactic Acid Calcium 7.4 L Phosphorus Troponin T C-Reactive Protein NT-Pro-B Natriuret Pep Total Protein Albumin Triglycerides HDL Cholesterol Urine WBC (Auto) Crossmatch 02/06/19 02/06/19 02/06/19 01:46 11:42 11:42 WBC 21.1 H RBC Hgb Hct MCH MCHC RDW 17.0 H Plt Count Anderson % (Auto) Lymph # Seg Neutrophils % Seg Neuts % (Manual) Lymphocytes % (Manual) Seg Neutrophils # Man Lymphocytes # (Manual) PT INR POC ABG pH POC ABG pCO2 34.4 L POC ABG pO2 56 L Sodium 151 H Potassium Chloride 112.1 H Carbon Dioxide BUN Creatinine Glucose 187 H POC Glucose Lactic Acid Calcium 8.1 L Phosphorus Troponin T C-Reactive Protein NT-Pro-B Natriuret Pep Total Protein Albumin Triglycerides HDL Cholesterol Urine WBC (Auto) Crossmatch 02/06/19 02/07/19 02/07/19 12:04 04:26 05:27 WBC 21.7 H RBC Hgb Hct MCH MCHC RDW 17.6 H Plt Count Anderson % (Auto) Lymph # Seg Neutrophils % Seg Neuts % (Manual) 98.0 H Lymphocytes % (Manual) 1.0 L Seg Neutrophils # Man 21.3 H Lymphocytes # (Manual) 0.2 L PT INR POC ABG pH 7.481 H POC ABG pCO2 31.3 L POC ABG pO2 63 L 50 L Sodium Potassium Chloride Carbon Dioxide BUN Creatinine Glucose POC Glucose Lactic Acid Calcium Phosphorus Troponin T C-Reactive Protein NT-Pro-B Natriuret Pep Total Protein Albumin Triglycerides HDL Cholesterol Urine WBC (Auto) Crossmatch 02/07/19 02/07/19 02/07/19 05:27 05:29 23:07 WBC RBC Hgb Hct MCH MCHC RDW Plt Count Anderson % (Auto) Lymph # Seg Neutrophils % Seg Neuts % (Manual) Lymphocytes % (Manual) Seg Neutrophils # Man Lymphocytes # (Manual) PT INR POC ABG pH POC ABG pCO2 POC ABG pO2 Sodium 147 H Potassium Chloride 108.4 H Carbon Dioxide BUN Creatinine 0.6 L Glucose 184 H POC Glucose 188 H 172 H Lactic Acid Calcium 8.3 L Phosphorus 1.50 L Troponin T C-Reactive Protein NT-Pro-B Natriuret Pep Total Protein Albumin Triglycerides HDL Cholesterol Urine WBC (Auto) Crossmatch 02/08/19 02/08/19 02/08/19 04:26 04:26 11:50 WBC 18.8 H RBC Hgb Hct MCH MCHC RDW 17.7 H Plt Count Anderson % (Auto) Lymph # Seg Neutrophils % Seg Neuts % (Manual) Lymphocytes % (Manual) Seg Neutrophils # Man Lymphocytes # (Manual) PT INR POC ABG pH POC ABG pCO2 POC ABG pO2 Sodium Potassium Chloride Carbon Dioxide BUN 19 H Creatinine 0.6 L Glucose 190 H POC Glucose 185 H Lactic Acid Calcium 8.2 L Phosphorus Troponin T C-Reactive Protein NT-Pro-B Natriuret Pep Total Protein Albumin Triglycerides HDL Cholesterol Urine WBC (Auto) Crossmatch 02/08/19 02/08/19 02/08/19 12:01 17:44 18:52 WBC RBC Hgb Hct MCH MCHC RDW Plt Count Anderson % (Auto) Lymph # Seg Neutrophils % Seg Neuts % (Manual) Lymphocytes % (Manual) Seg Neutrophils # Man Lymphocytes # (Manual) PT INR POC ABG pH POC ABG pCO2 POC ABG pO2 Sodium Potassium Chloride Carbon Dioxide BUN Creatinine Glucose POC Glucose 186 H 143 H Lactic Acid Calcium Phosphorus Troponin T 0.058 H D C-Reactive Protein NT-Pro-B Natriuret Pep Total Protein Albumin Triglycerides HDL Cholesterol Urine WBC (Auto) Crossmatch 02/08/19 02/09/19 02/09/19 23:24 03:57 03:57 WBC 20.3 H RBC Hgb Hct MCH MCHC RDW 18.0 H Plt Count 92 L Anderson % (Auto) Lymph # Seg Neutrophils % Seg Neuts % (Manual) Lymphocytes % (Manual) Seg Neutrophils # Man Lymphocytes # (Manual) PT INR POC ABG pH POC ABG pCO2 POC ABG pO2 Sodium Potassium Chloride Carbon Dioxide BUN 29 H Creatinine 0.5 L Glucose 172 H POC Glucose 205 H Lactic Acid Calcium Phosphorus Troponin T C-Reactive Protein NT-Pro-B Natriuret Pep Total Protein Albumin Triglycerides HDL Cholesterol Urine WBC (Auto) Crossmatch 02/09/19 02/09/19 02/09/19 04:49 12:11 17:27 WBC RBC Hgb Hct MCH MCHC RDW Plt Count Anderson % (Auto) Lymph # Seg Neutrophils % Seg Neuts % (Manual) Lymphocytes % (Manual) Seg Neutrophils # Man Lymphocytes # (Manual) PT INR POC ABG pH 7.473 H POC ABG pCO2 POC ABG pO2 Sodium Potassium Chloride Carbon Dioxide BUN Creatinine Glucose POC Glucose 136 H 149 H Lactic Acid Calcium Phosphorus Troponin T C-Reactive Protein NT-Pro-B Natriuret Pep Total Protein Albumin Triglycerides HDL Cholesterol Urine WBC (Auto) Crossmatch 02/10/19 02/10/19 02/10/19 04:59 04:59 04:59 WBC 16.5 H RBC Hgb Hct MCH MCHC RDW 17.7 H Plt Count 94 L Anderson % (Auto) Lymph # Seg Neutrophils % Seg Neuts % (Manual) Lymphocytes % (Manual) Seg Neutrophils # Man Lymphocytes # (Manual) PT INR POC ABG pH POC ABG pCO2 POC ABG pO2 Sodium Potassium Chloride Carbon Dioxide BUN 31 H 31 H Creatinine 0.6 L 0.6 L Glucose 149 H 152 H POC Glucose Lactic Acid Calcium Phosphorus Troponin T C-Reactive Protein NT-Pro-B Natriuret Pep Total Protein Albumin Triglycerides HDL Cholesterol Urine WBC (Auto) Crossmatch 02/10/19 02/11/19 02/11/19 05:10 00:06 10:26 WBC 16.4 H RBC Hgb Hct MCH MCHC RDW 18.3 H Plt Count 111 L Anderson % (Auto) Lymph # Seg Neutrophils % Seg Neuts % (Manual) Lymphocytes % (Manual) Seg Neutrophils # Man Lymphocytes # (Manual) PT INR POC ABG pH 7.518 H 7.482 H POC ABG pCO2 POC ABG pO2 173 H 119 H Sodium Potassium Chloride Carbon Dioxide BUN Creatinine Glucose POC Glucose Lactic Acid Calcium Phosphorus Troponin T C-Reactive Protein NT-Pro-B Natriuret Pep Total Protein Albumin Triglycerides HDL Cholesterol Urine WBC (Auto) Crossmatch 02/11/19 02/12/19 02/12/19 10:26 04:19 04:19 WBC 16.8 H RBC 3.44 L Hgb 9.6 L Hct 30.2 L D MCH MCHC RDW 18.0 H Plt Count 131 L Anderson % (Auto) Lymph # Seg Neutrophils % Seg Neuts % (Manual) Lymphocytes % (Manual) Seg Neutrophils # Man Lymphocytes # (Manual) PT INR POC ABG pH POC ABG pCO2 POC ABG pO2 Sodium 148 H 147 H Potassium Chloride 112.7 H 114.7 H Carbon Dioxide BUN 23 H Creatinine 0.5 L 0.5 L Glucose 195 H 152 H POC Glucose Lactic Acid Calcium Phosphorus Troponin T C-Reactive Protein NT-Pro-B Natriuret Pep Total Protein Albumin Triglycerides HDL Cholesterol Urine WBC (Auto) Crossmatch 02/12/19 02/12/19 02/13/19 05:44 11:54 04:33 WBC 16.7 H RBC 3.24 L Hgb 9.1 L Hct 28.7 L MCH MCHC RDW 18.5 H Plt Count Anderson % (Auto) Lymph # Seg Neutrophils % Seg Neuts % (Manual) 95.0 H Lymphocytes % (Manual) 3.0 L Seg Neutrophils # Man 15.9 H Lymphocytes # (Manual) 0.5 L PT INR POC ABG pH 7.466 H POC ABG pCO2 33.5 L POC ABG pO2 118 H Sodium Potassium Chloride Carbon Dioxide BUN Creatinine Glucose POC Glucose 147 H Lactic Acid Calcium Phosphorus Troponin T C-Reactive Protein NT-Pro-B Natriuret Pep Total Protein Albumin Triglycerides HDL Cholesterol Urine WBC (Auto) Crossmatch 02/13/19 02/14/19 02/14/19 04:33 04:34 04:34 WBC 16.3 H RBC 3.56 L Hgb 10.0 L Hct MCH MCHC RDW 19.1 H Plt Count Anderson % (Auto) Lymph # Seg Neutrophils % Seg Neuts % (Manual) 98.0 H Lymphocytes % (Manual) 1.0 L Seg Neutrophils # Man 16.0 H Lymphocytes # (Manual) 0.2 L PT INR POC ABG pH POC ABG pCO2 POC ABG pO2 Sodium Potassium Chloride 113.7 H 113.1 H Carbon Dioxide BUN Creatinine 0.4 L 0.4 L Glucose 193 H 215 H POC Glucose Lactic Acid Calcium Phosphorus Troponin T C-Reactive Protein NT-Pro-B Natriuret Pep Total Protein Albumin Triglycerides HDL Cholesterol Urine WBC (Auto) Crossmatch 02/15/19 02/16/19 02/16/19 14:30 04:47 04:47 WBC 24.2 H 22.3 H RBC 3.31 L Hgb 9.4 L Hct 29.3 L MCH 27 L MCHC RDW 19.6 H 20.5 H Plt Count Anderson % (Auto) Lymph # Seg Neutrophils % Seg Neuts % (Manual) 90.0 H Lymphocytes % (Manual) 1.0 L Seg Neutrophils # Man 20.1 H Lymphocytes # (Manual) 0.2 L PT INR POC ABG pH POC ABG pCO2 POC ABG pO2 Sodium Potassium Chloride 110.0 H Carbon Dioxide 18 L BUN Creatinine 0.3 L Glucose 115 H POC Glucose Lactic Acid Calcium Phosphorus Troponin T C-Reactive Protein NT-Pro-B Natriuret Pep Total Protein Albumin Triglycerides HDL Cholesterol Urine WBC (Auto) Crossmatch 02/16/19 02/16/19 02/16/19 15:30 15:58 15:58 WBC RBC Hgb Hct MCH MCHC RDW Plt Count Anderson % (Auto) Lymph # Seg Neutrophils % Seg Neuts % (Manual) Lymphocytes % (Manual) Seg Neutrophils # Man Lymphocytes # (Manual) PT INR POC ABG pH 7.462 H POC ABG pCO2 POC ABG pO2 Sodium Potassium Chloride Carbon Dioxide BUN Creatinine Glucose POC Glucose Lactic Acid 2.20 H* Calcium Phosphorus Troponin T C-Reactive Protein 2.20 H NT-Pro-B Natriuret Pep Total Protein Albumin Triglycerides HDL Cholesterol Urine WBC (Auto) Crossmatch 02/16/19 02/17/1919 18:01 04:56 04:56 WBC 28.9 H RBC 3.52 L Hgb 9.9 L Hct MCH MCHC RDW 19.8 H Plt Count Anderson % (Auto) Lymph # Seg Neutrophils % Seg Neuts % (Manual) 91.0 H Lymphocytes % (Manual) 0.5 L Seg Neutrophils # Man 26.3 H Lymphocytes # (Manual) 0.1 L PT INR POC ABG pH POC ABG pCO2 POC ABG pO2 Sodium 132 L Potassium Chloride Carbon Dioxide 17 L BUN Creatinine 0.3 L Glucose 125 H POC Glucose Lactic Acid 2.80 H* Calcium Phosphorus Troponin T C-Reactive Protein NT-Pro-B Natriuret Pep Total Protein Albumin Triglycerides HDL Cholesterol Urine WBC (Auto) Crossmatch 02/17/19 02/17/19 02/17/19 04:56 07:56 09:06 WBC RBC Hgb Hct MCH MCHC RDW Plt Count Anderson % (Auto) Lymph # Seg Neutrophils % Seg Neuts % (Manual) Lymphocytes % (Manual) Seg Neutrophils # Man Lymphocytes # (Manual) PT INR POC ABG pH POC ABG pCO2 POC ABG pO2 Sodium Potassium Chloride Carbon Dioxide BUN Creatinine Glucose POC Glucose Lactic Acid 2.10 H* 2.40 H* 2.20 H* Calcium Phosphorus Troponin T C-Reactive Protein NT-Pro-B Natriuret Pep Total Protein Albumin Triglycerides HDL Cholesterol Urine WBC (Auto) Crossmatch 02/17/19 10:22 WBC RBC Hgb Hct MCH MCHC RDW Plt Count Anderson % (Auto) Lymph # Seg Neutrophils % Seg Neuts % (Manual) Lymphocytes % (Manual) Seg Neutrophils # Man Lymphocytes # (Manual) PT INR POC ABG pH POC ABG pCO2 POC ABG pO2 Sodium Potassium Chloride Carbon Dioxide BUN Creatinine Glucose POC Glucose Lactic Acid 2.40 H* Calcium Phosphorus Troponin T C-Reactive Protein NT-Pro-B Natriuret Pep Total Protein Albumin Triglycerides HDL Cholesterol Urine WBC (Auto) Crossmatch Allied health notes reviewed: nursing
[2019-02-18] MEDS: DUONEB *Not for PRN Use IH SCH ×4 (02:15→20:45)
[2019-02-18] MEDS: SOLU-Medrol IV SCH ×2 (04:45→09:49)
[2019-02-18] MEDS: D5W/0.45% NACL/KCL 20 MEQ 20 MEQ/1,000 ML BAG IV SCH (06:17)
[2019-02-18 06:30] LABS: Hematocrit 27.4 % (30.3-42.9); Hemoglobin 8.5 gm/dl (10.1-14.3); Mean Corpuscular HGB Conc 31 % (30-34); Mean Corpuscular Volume 89 fl (79-97); Platelet Count 367 K/mm3 (140-440); Red Blood Count 3.07 M/mm3 (3.65-5.03)
[2019-02-18 06:33] LABS: Red Cell Distribution Width 20.7 % (13.2-15.2)
[2019-02-18 06:48] LABS: BUN/Creatinine Ratio 60; Blood Urea Nitrogen 12 mg/dL (7-17); Calcium 9.3 mg/dL (8.4-10.2); Hemolysis Index 5
[2019-02-18] MEDS: PULMICORT IH SCH ×2 (07:49→20:45)
[2019-02-18] MEDS: BROVANA NEBU IH SCH ×2 (07:49→20:46)
[2019-02-18 08:54] LABS: Basophils % (Manual) 0 % (0.0-1.8); Eosinophils % (Manual) 0 % (0.0-4.3); Total Cells Counted 100
[2019-02-18 08:59] LABS: Anisocytosis 1+; Platelet Estimate Consistent w Auto
--- NOTE | 2019-02-18 09:15 | Progress Note ---
Assessment and Plan (1) Cecal volvulus Current Visit: Yes Status: Acute Plan to address problem: 68 yo F s/p exploratory laparotomy, right hemicolectomy POD7, for cecal volvulus and large bowel obstruction 1. ARF - now off vent 2. anemia 3. GIB - no further melena/bloody BM 4. n/v, SBO 5. hx CHF, EF 20-25% Plan: 1. c/w TF at goal 2. pureed diet with thin liquids as per speech therapy. Will need protein supplements once she is tolerating diet 3. gentle IVF per 1' service 4. PPI 5. DVT ppx 6. prn PO pain control 7. OOB/PT 8. PNA - mgmt per ID and Pulm Thank you, please call with questions. Will likely need rehab upon dc. Subjective Date of service: 02/18/19 Narrative: Pt seen and examined. States she feels "ok". No n/v. Tolerating TF. No f/c. Per notes, patient have brown stools. Objective Vital Signs - 12hr 02/17/19 02/17/19 02/17/19 22:00 22:47 23:00 Temperature Pulse Rate 107 H 107 H 103 H Pulse Rate [ Bilateral Bases ] Respiratory 26 H 29 H 22 Rate Respiratory Rate [Bilateral Bases] Blood Pressure 106/66 106/66 114/60 O2 Sat by Pulse 94 93 91 Oximetry 02/18/19 02/18/19 02/18/19 00:00 01:00 02:00 Temperature 98.8 F Pulse Rate 82 93 H 95 H Pulse Rate [ Bilateral Bases ] Respiratory 19 20 19 Rate Respiratory Rate [Bilateral Bases] Blood Pressure 124/67 124/66 128/70 O2 Sat by Pulse 93 100 100 Oximetry 02/18/19 02/18/19 02/18/19 03:00 04:00 05:00 Temperature 99.1 F Pulse Rate 91 H 86 89 Pulse Rate [ Bilateral Bases ] Respiratory 24 17 25 H Rate Respiratory Rate [Bilateral Bases] Blood Pressure 121/68 128/66 123/67 O2 Sat by Pulse 99 100 100 Oximetry 02/18/19 02/18/19 02/18/19 06:00 07:50 07:51 Temperature Pulse Rate 83 Pulse Rate [ 91 H Bilateral Bases ] Respiratory 21 Rate Respiratory 23 Rate [Bilateral Bases] Blood Pressure 128/70 O2 Sat by Pulse 100 97 Oximetry 02/18/19 08:00 Temperature 97.6 F Pulse Rate Pulse Rate [ Bilateral Bases ] Respiratory Rate Respiratory Rate [Bilateral Bases] Blood Pressure O2 Sat by Pulse Oximetry - General physical appearance Narrative Exam: Gen: AAOx3. NAD CV: s1, S2+ Resp; even and unlabored Abd: soft, NT, ND. incision c/d/i Ext: no c/c/e - Labs 02/18/19 05:17 02/18/19 05:17 Diabetes panel 02/18/19 Range/Units 05:17 Sodium 136 L (137-145) mmol/L Potassium 4.1 (3.6-5.0) mmol/L Chloride 108.5 H (98-107) mmol/L Carbon Dioxide 16 L (22-30) mmol/L BUN 12 (7-17) mg/dL Creatinine 0.2 L (0.7-1.2) mg/dL Glucose 230 H (65-100) mg/dL Calcium 9.3 (8.4-10.2) mg/dL Calcium panel 02/18/19 Range/Units 05:17 Calcium 9.3 (8.4-10.2) mg/dL Pituitary panel 02/18/19 Range/Units 05:17 Sodium 136 L (137-145) mmol/L Potassium 4.1 (3.6-5.0) mmol/L Chloride 108.5 H (98-107) mmol/L Carbon Dioxide 16 L (22-30) mmol/L BUN 12 (7-17) mg/dL Creatinine 0.2 L (0.7-1.2) mg/dL Glucose 230 H (65-100) mg/dL Calcium 9.3 (8.4-10.2) mg/dL Adrenal panel 02/18/19 Range/Units 05:17 Sodium 136 L (137-145) mmol/L Potassium 4.1 (3.6-5.0) mmol/L Chloride 108.5 H (98-107) mmol/L Carbon Dioxide 16 L (22-30) mmol/L BUN 12 (7-17) mg/dL Creatinine 0.2 L (0.7-1.2) mg/dL Glucose 230 H (65-100) mg/dL Calcium 9.3 (8.4-10.2) mg/dL
[2019-02-18] MEDS: LOVENOX SUB-Q SCH (09:48)
[2019-02-18] MEDS: MAXIPIME/NS 1 GM/100 ML 1 GM/100 ML BAG IV SCH ×2 (09:48→21:56)
[2019-02-18] MEDS: SODIUM CHLORIDE FLUSH SYRINGE 10 ML IV SCH ×2 (09:49→22:00)
[2019-02-18] MEDS: PREVACID SOLUTAB FEEDTUBE SCH (09:49)
--- NOTE | 2019-02-18 10:29 | Progress Note ---
Assessment and Plan Assessment and plan: Sepsis, recurrent. Worsening leukocytosis with elevated lactate: Concerning for new sepsis. Source could be bilateral pneumonia versus occult intra-abdominal abscess versus reactive. Acute hypoxemic respiratory failure. Patient with with acute respiratory failure. Off mech vent, BiPAP prn. Bilateral pneumonia, HCAP. ID following and recommended empiric cefepime and vancomycin. GI bleed/melena. Patient with melena yesterday morning. No hematemesis, hematochezia or further signs of bleeding. ? Ulcer give a history of NSAID use. Patient unable to undergo EGD due to instability/comorbidities. GI following. Bleeding scan vs CTA if overt bleeding develops. Continue PPI and supportive care. -continue PPI and supportive care Cecal volvulus and large Bowel obstruction. S/p exploratory laparotomy and right hemicolectomy. Followed by Gen. Surgery. Pureed diet with thin liquids as per speech therapy. Will need protein supplements once she is tolerating diet. Continue dobhoff to supplement nutrition with TF. Acute chronic obstructive pulmonary disease exacerbation. Continue steroid taper. Bronchodilators and nebulizer treatment. Pulmonary following. Acute systolic congestive heart failure exacerbation(EF 20-25%). Strict intake and output monitoring Hypokalemia, resolved Elevated serum troponin. Etiology likely secondary to #1. ? Type II SD. Adult failure to thrive and cachexia. PT/OT recommended subacute rehab ilitation. Speech found no evidence of aspiration. Dysphagia diet with pured and thin liquids. Also, supplement with TF at goal. Thrombocytopenia Continuing to trend platelet counts. Disposition. Rehab placement History Interval history: Patient is about 71-year-old female with PMHx of CHF, COPD, who was brought to the ER by EMS after a fall at home, altered mental status, respiratory distress. Per EMS patient was found in severe respiratory distress, laying on the floor and covered in her feces. According to EMS the had asked a neighbor to call EMS because the patient fell on the floor and he was unable to pick her up. He states that she had been sick for a few days, she had trouble breathing, and he had been taking a lot of "goody powder" for pain. On arrival to the ER patient was lethargic, responded to name, her blood pressure was 80/54, the temperature was 97.1, respiration was 40 BPM, she had h&h of 1.9/7.1, GI was consulted and she was admitted for acute GI bleed, acute blood loss anemia, CHF (BNP was 9100) and COPD exacerbation. respiratory failure worsened, so was intubated. She was seen by GI Physician, put on Protonix iv, but EGD not done because unstable. Patient with vomiting vomiting and CT revealed poss bowel obstruction, surg consulted and evaluated her. The patient underwent exploratory laparotomy, right hemicolectomy for cecal volvulus and large bowel obstruction. Patient was extubated on 02/04/19. Patient has some improvement and has been started on pured diet with thin liquids as per speech therapy recommendations. Dobbhoff was inserted to supplement nutrition with TF Physical therapy evaluated the patient and suggested subacute rehabilitation. Hospitalist Physical - Constitutional Vitals: Temp Pulse Resp BP Pulse Ox 97.6 F 91 H 23 128/70 97 02/18/19 08:00 02/18/19 07:50 02/18/19 07:50 02/18/19 06:00 02/18/19 07:51 General appearance: Present: no acute distress, cachectic - EENT Eyes: Present: PERRL, EOM intact ENT: hearing intact, clear oral mucosa, dentition normal - Neck Neck: Present: supple, normal ROM - Respiratory Respiratory effort: normal Respiratory: bilateral: CTA - Cardiovascular Rhythm: regular Heart Sounds: Present: S1 & S2. Absent: gallop, rub - Extremities Extremities: no ischemia, No edema, Full ROM - Abdominal General gastrointestinal: soft, non-tender, non-distended, normal bowel sounds - Integumentary Integumentary: Present: clear, warm, dry - Neurologic Neurologic: CNII-XII intact, moves all extremities Results - Labs CBC & Chem 7: 02/18/19 05:17 02/18/19 05:17 Labs: Laboratory Last Values WBC 29.6 K/mm3 (4.5-11.0) H 02/18/19 05:17 RBC 3.07 M/mm3 (3.65-5.03) L 02/18/19 05:17 Hgb 8.5 gm/dl (10.1-14.3) L 02/18/19 05:17 Hct 27.4 % (30.3-42.9) L 02/18/19 05:17 MCV 89 fl (79-97) 02/18/19 05:17 MCH 28 pg (28-32) 02/18/19 05:17 MCHC 31 % (30-34) 02/18/19 05:17 RDW 20.7 % (13.2-15.2) H 02/18/19 05:17 Plt Count 367 K/mm3 (140-440) 02/18/19 05:17 Lymph % (Auto) 17.6 % (13.4-35.0) 02/03/19 18:06 [place] % (Auto) 10.1 % (0.0-7.3) H 02/03/19 18:06 Eos % (Auto) 0.1 % (0.0-4.3) 02/03/19 18:06 Baso % (Auto) 1.0 % (0.0-1.8) 02/03/19 18:06 Lymph # 1.1 K/mm3 (1.2-5.4) L 02/03/19 18:06 [place] # 0.6 K/mm3 (0.0-0.8) 02/03/19 18:06 Eos # 0.0 K/mm3 (0.0-0.4) 02/03/19 18:06 Baso # 0.1 K/mm3 (0.0-0.1) 02/03/19 18:06 Add Manual Diff Complete 02/18/19 05:17 Total Counted 100 02/18/19 05:17 Seg Neutrophils % Merchandise Marker 02/18/19 05:17 Seg Neuts % (Manual) 99.0 % (40.0-70.0) H 02/18/19 05:17 0 % 02/18/19 05:17 0 % (13.4-35.0) L 02/18/19 05:17 Reactive Lymphs % (Man) 0 % 02/18/19 05:17 1.0 % (0.0-7.3) 02/18/19 05:17 0 % (0.0-4.3) 02/18/19 05:17 0 % (0.0-1.8) 02/18/19 05:17 0 % 02/18/19 05:17 0 % 02/18/19 05:17 0 % 02/18/19 05:17 0 % 02/18/19 05:17 Nucleated RBC % Not Reportable 02/18/19 05:17 Seg Neutrophils # 4.5 K/mm3 (1.8-7.7) 02/03/19 18:06 Seg Neutrophils # Man 29.3 K/mm3 (1.8-7.7) H 02/18/19 05:17 Band Neutrophils # 0.0 K/mm3 02/18/19 05:17 0.0 K/mm3 (1.2-5.4) L 02/18/19 05:17 Abs React Lymphs (Man) 0.0 K/mm3 02/18/19 05:17 0.3 K/mm3 (0.0-0.8) 02/18/19 05:17 0.0 K/mm3 (0.0-0.4) 02/18/19 05:17 0.0 K/mm3 (0.0-0.1) 02/18/19 05:17 0.0 K/mm3 02/18/19 05:17 0.0 K/mm3 02/18/19 05:17 0.0 K/mm3 02/18/19 05:17 Blast Cells # 0.0 K/mm3 02/18/19 05:17 Pathologist Review TNR 02/16/19 04:47 WBC Morphology Not Reportable 02/18/19 05:17 Hypersegmented Neuts Not Reportable 02/18/19 05:17 Hyposegmented Neuts Not Reportable 02/18/19 05:17 Hypogranular Neuts Not Reportable 02/18/19 05:17 Not Reportable 02/18/19 05:17 Not Reportable 02/18/19 05:17 Not Reportable 02/18/19 05:17 Not Reportable 02/18/19 05:17 Not Reportable 02/18/19 05:17 Not Reportable 02/18/19 05:17 Consistent w auto 02/18/19 05:17 Not Reportable 02/18/19 05:17 Plt Clumps, EDTA Not Reportable 02/18/19 05:17 Not Reportable 02/18/19 05:17 Not Reportable 02/18/19 05:17 Not Reportable 02/18/19 05:17 Plt Morphology Comment Not Reportable 02/18/19 05:17 RBC Morphology Not Reportable 02/18/19 05:17 Dimorphic RBCs Not Reportable 02/18/19 05:17 Not Reportable 02/18/19 05:17 Not Reportable 02/18/19 05:17 Not Reportable 02/18/19 05:17 1+ 02/18/19 05:17 Not Reportable 02/18/19 05:17 Not Reportable 02/18/19 05:17 Not Reportable 02/18/19 05:17 Not Reportable 02/18/19 05:17 Not Reportable 02/18/19 05:17 Not Reportable 02/18/19 05:17 Not Reportable 02/18/19 05:17 Not Reportable 02/18/19 05:17 Not Reportable 02/18/19 05:17 Not Reportable 02/18/19 05:17 Not Reportable 02/18/19 05:17 Not Reportable 02/18/19 05:17 Not Reportable 02/18/19 05:17 Not Reportable 02/18/19 05:17 Not Reportable 02/18/19 05:17 Acanthocytes (Spur) Not Reportable 02/18/19 05:17 Rouleaux Not Reportable 02/18/19 05:17 Not Reportable 02/18/19 05:17 Not Reportable 02/18/19 05:17 Not Reportable 02/18/19 05:17 Not Reportable 02/18/19 05:17 Hem Pathologist Commnt No 02/18/19 05:17 PT 19.3 Sec. (12.2-14.9) H 02/03/19 19:24 INR 1.52 (0.87-1.13) H 02/03/19 19:24 APTT 30.3 Sec. (24.2-36.6) 02/03/19 19:24 POC ABG pH 7.462 (7.35-7.45) H 02/16/19 15:30 POC ABG pCO2 33.5 (35-45) L 02/12/19 05:44 POC ABG pO2 118 (80-105) H 02/12/19 05:44 POC ABG HCO3 14.6 (22-26 mml/L) 02/16/19 15:30 POC ABG Total CO2 15 (23-27mmol/L) 02/16/19 15:30 POC ABG O2 Sat 86 02/16/19 15:30 POC ABG Base Excess -9 ((-2) - (+3)mmol/L) 02/16/19 15:30 50 % 02/16/19 15:30 Sodium 136 mmol/L (137-145) L 02/18/19 05:17 Potassium 4.1 mmol/L (3.6-5.0) 02/18/19 05:17 Chloride 108.5 mmol/L (98-107) H 02/18/19 05:17 Carbon Dioxide 16 mmol/L (22-30) L 02/18/19 05:17 16 mmol/L 02/18/19 05:17 BUN 12 mg/dL (7-17) 02/18/19 05:17 0.2 mg/dL (0.7-1.2) L 02/18/19 05:17 Estimated GFR > 60 ml/min 02/18/19 05:17 60 % 02/18/19 05:17 Glucose 230 mg/dL (65-100) H 02/18/19 05:17 POC Glucose 147 (70-105) H 02/12/19 11:54 Lactic Acid 2.50 mmol/L (0.7-2.0) H* 02/18/19 09:00 Calcium 9.3 mg/dL (8.4-10.2) 02/18/19 05:17 Phosphorus 3.10 mg/dL (2.5-4.5) 02/13/19 04:33 Magnesium 1.90 mg/dL (1.7-2.3) 02/13/19 04:33 0.30 mg/dL (0.1-1.2) 02/03/19 18:08 AST 35 units/L (5-40) 02/03/19 18:08 ALT 27 units/L (7-56) 02/03/19 18:08 117 units/L (35-129) 02/03/19 18:08 0.058 ng/mL (0.00-0.029) H D 02/08/19 18:52 2.20 mg/dL (0.00-1.30) H 02/16/19 15:58 NT-Pro-B Natriuret Pep 9160 pg/mL (0-900) H 02/03/19 18:06 5.1 g/dL (6.3-8.2) L 02/03/19 18:08 2.8 g/dL (3.9-5) L 02/03/19 18:08 1.2 % 02/03/19 18:08 Triglycerides 164 mg/dL (2-149) H 02/03/19 18:08 Cholesterol 125 mg/dL (50-199) 02/03/19 18:08 75 mg/dL (50-130) 02/03/19 18:08 31 mg/dL (40-59) L 02/03/19 18:08 4.03 % 02/03/19 18:08 Yellow (Yellow) 02/03/19 02:57 Clear (Clear) 02/03/19 02:57 6.0 (5.0-7.0) 02/03/19 02:57 Ur Specific [place] 1.011 (1.003-1.030) 02/03/19 02:57 <15 mg/dl mg/dL (Negative) 02/03/19 02:57 Neg mg/dL (Negative) 02/03/19 02:57 Neg mg/dL (Negative) 02/03/19 02:57 Neg (Negative) 02/03/19 02:57 Neg (Negative) 02/03/19 02:57 Neg (Negative) 02/03/19 02:57 < 2.0 mg/dL (<2.0) 02/03/19 02:57 Ur Leukocyte Esterase Neg (Negative) 02/03/19 02:57 7.0 /HPF (0.0-6.0) H 02/03/19 02:57 8.0 /HPF (0.0-6.0) 02/03/19 02:57 U Epithel Cells (Auto) 1.0 /HPF (0-13.0) 02/03/19 02:57 2+ /HPF (Negative) 02/03/19 02:57 Hyaline Casts 22 /LPF 02/03/19 02:57 3+ /HPF 02/03/19 02:57 Blood Type A POSITIVE 02/03/19 18:06 Antibody Screen Negative 02/03/19 18:06 Crossmatch See Detail 02/03/19 18:06 Active Medications - Current Medications Current Medications: Generic Name Dose Route Start Last Admin Trade Name Freq PRN Reason Stop Dose Admin Albuterol/Ipratropium 1 ampul 02/04/19 02:00 02/18/19 07:49 Duoneb *Not For Prn Use* IH Not Given Q6HRT [facility] Lipase/Protease/Amylase 1 each 02/08/19 16:37 Pancrebrant [place] 10,500 Unit FEEDTUBE PRN PRN For Clogged Feeding Tube Arformoterol Tartrate 15 mcg 02/04/19 14:15 02/18/19 07:49 Brovana Nebu IH 15 mcg Q12HRT JOEL Administration Budesonide 0.5 mg 02/04/19 20:00 02/18/19 07:49 Pulmicort IH 0.5 mg Q12HRT JOEL Administration Enoxaparin Sodium 30 mg 02/14/19 14:00 02/18/19 09:48 Lovenox SUB-Q 30 mg DAILY JOEL Administration Hydrophilic Ointment 1 applic 02/06/19 10:50 Vaseline Lip Therapy TP Q2HR PRN Dry Lips Cefepime HCl 1 gm in 100 mls @ 200 mls/hr 02/17/19 10:00 02/18/19 09:48 Maxipime/Ns 1 Gm/100 Ml IV 200 mls/hr Q12HR JOEL Administration Protocol Vancomycin HCl 750 mg/ Sodium 265 mls @ 176.667 mls/hr 02/17/19 10:00 9 11:00 Chloride IV 176.667 mls/hr Q24H JOEL Administration Lansoprazole 30 mg 02/18/19 10:00 02/18/19 09:49 Prevacid Solutab FEEDTUBE 30 mg QDAY JOEL Administration Methylprednisolone Sodium Succinate 60 mg 02/16/19 18:00 02/18/19 09:49 Solu-Medrol IV 60 mg Q8H JOEL Administration Morphine Sulfate 1 mg 02/12/19 14:00 02/16/19 09:54 Morphine IV 1 mg Q4H PRN Administration Pain , Severe (7-10) Multi-Ingred Cream/Lotion/Oil/Oint 1 applic 02/06/19 10:50 Artificial Tears Ophth Oint OU Q4HR PRN Dry Eye(s) Ondansetron HCl 4 mg 02/03/19 20:27 02/09/19 16:37 Zofran IV 4 mg Q8H PRN Administration Nausea And Vomiting Simple Syrup 15 ml 02/08/19 16:37 Simple Syrup FEEDTUBE PRN PRN Hypoglycemia Simple Syrup 30 ml 02/08/19 16:37 Simple Syrup FEEDTUBE PRN PRN Hypoglycemia Sodium Bicarbonate 325 mg 02/08/19 16:37 Sodium Bicarbonate FEEDTUBE PRN PRN For Clogged Feeding Tube Sodium Chloride 10 ml 02/03/19 22:00 02/18/19 09:49 Sodium Chloride Flush Syringe 10 Ml IV 10 ml BID JOEL Administration Sodium Chloride 10 ml 02/03/19 20:27 Sodium Chloride Flush Syringe 10 Ml IV PRN PRN LINE FLUSH Tramadol HCl 25 mg 02/15/19 11:13 02/15/19 18:29 Ultram FEEDTUBE 25 mg Q4H PRN Administration Pain, Moderate (4-6) Nutrition/Malnutrition Assess - Dietary Evaluation Nutrition/Malnutrition Findings: Nutrition Notes Start: 02/04/19 14:37 Freq: Status: Active Protocol: Document 02/14/19 09:52 LP (Rec: 02/14/19 09:57 LP [id number]) Nutrition Notes Initial or Follow up Reassessment Current Diagnosis Heart Failure,Respiratory Failure Other Pertinent Diagnosis AMS Current Diet NPO Labs/Tests Reviewed Pertinent Medications Reviewed Height 5 ft 3 in Weight 38.4 kg [place] Body Weight (kg) 52.27 BMI 15.0 Subjective/Other Information Pt diet advanced to pureed but has poor appetite so dobhoff has been placed. Burn Absent Trauma Absent #1 Nutrition Diagnosis Inadequate oral intake Diagnosis Progress(for reassessment Continues documentation) Is patient on ventilator? No Is Patient Ambulatory and/or Out of Bed No REE-([facility]-confined to bed) 1054.008 Kcal/Kg value to use for calculation 40 Approximate Energy Requirements Using 1536 kcal/Kg Calculation Used for Recommendations Kcal/kg Additional Notes Pro needs 1.2-2g/k-72g/ day Fluid needs 1ml/kcal Nutrition Intervention Nutrition Support: Glucerna 1.2 at 45ml/hr. Flush with 100ml q4h Kcal 1,296 Protein (gm) 65 Fluid (mL) 869 Goal #1 Meet at least 80% of kcal and protein needs Anticipated Discharge Needs: Unable to determine at this time Follow-Up By: 02/18/19 Additional Comments Follow for TF start/tolerance
--- NOTE | 2019-02-18 11:02 | Progress Note ---
Assessment and Plan Cultures: 02/03/2019 blood culture: No growth 02/07/2019 tracheal aspirate: No growth 02/10/2019 blood culture: No growth A/P: 68-year-old female with a prolonged hospitalization since 02/03/2019. She has CHF, COPD and was admitted to the hospital with altered mental status, respiratory distress. CT abdomen and pelvis revealed possible bowel obstruction with volvulus. On 02/11/2019, she underwent an expiratory laparotomy and right hemicolectomy. Now with: 1) Persistent leukocytosis with elevated lactate: Concerning for new sepsis. Source likely bilateral pneumonia. Intra-abdominal abscess ruled out by CT 02/17/2019. Of note, patient also on steroids. No indwelling central line or Sadler catheter present. 2) Bilateral pneumonia, HCAP with acute respiratory failure: Requiring BiPAP. Treat with empiric cefepime and vancomycin. 3) Cecal volvulus: Status post exploratory laparotomy and right hemicolectomy. Surgical incision appears to be healing well. Patient is on tube feeds. 4) Acute encephalopathy: metabolic, possibly septic. 5) GI bleed: GI following. Recs: Continue IV cefepime and vancomycin, target trough: 10-20 mcg/ml, Day 2 monitor WBC Will follow. Erickson Restrepo MD [facility] C: [phone] O: [phone] F: [phone] Subjective Date of service: 02/18/19 Principal diagnosis: Ac hypoxemic Resp failure; Severe Anemia; AE-COPD; G.I. Bleed; Septic Shock Interval history: No fever. Remains on BiPAP at night, but off this morning. Discussed with RN. No other issues. on Tube feeds. Objective - Exam Narrative Exam: Physical Exam: Constitutional: sleeping, comfortable. Head, Ears, Nose: Normocephalic, atraumatic. External ears, nose normal Eyes: Conjunctivae/corneas clear. No icterus. No ptosis. Neck: Supple, no meningeal signs Oral: unable to examine Cardiovascular: S1, S2 normal. Respiratory: few coarse sounds bilaterally GI: Soft, non-tender; bowel sounds normal. No peritoneal signs. Incision c/d/i Musculoskeletal: No pedal edema, no cyanosis. Skin: No rash or abscess Hem/Lymphatic: No palpable cervical or supraclavicular nodes. No lymphangitis Psych: no agitation Neurological: sleeping - Constitutional Vitals: Vital Signs Temp Pulse Resp BP Pulse Ox 97.6 F 91 H 23 128/70 97 02/18/19 08:00 02/18/19 07:50 02/18/19 07:50 02/18/19 06:00 02/18/19 07:51 Temperature -Last 24 Hours Temperature 97.6 F Temperature 99.1 F Temperature 98.8 F Temperature 98.0 F Temperature 97.2 F Temperature 97.6 F - Labs CBC & Chem 7: 02/18/19 05:17 02/18/19 05:17 Labs: Abnormal lab results 02/18/19 02/18/19 02/18/19 Range/Units 05:17 05:17 05:17 WBC 29.6 H (4.5-11.0) K/mm3 RBC 3.07 L (3.65-5.03) M/mm3 Hgb 8.5 L (10.1-14.3) gm/dl Hct 27.4 L (30.3-42.9) % RDW 20.7 H (13.2-15.2) % Seg Neuts % (Manual) 99.0 H (40.0-70.0) % Lymphocytes % (Manual) 0 L (13.4-35.0) % Seg Neutrophils # Man 29.3 H (1.8-7.7) K/mm3 Lymphocytes # (Manual) 0.0 L (1.2-5.4) K/mm3 Sodium 136 L (137-145) mmol/L Chloride 108.5 H (98-107) mmol/L Carbon Dioxide 16 L (22-30) mmol/L Creatinine 0.2 L (0.7-1.2) mg/dL Glucose 230 H (65-100) mg/dL Lactic Acid 2.60 H* (0.7-2.0) mmol/L 02/18/19 02/18/19 Range/Units 07:41 09:00 WBC (4.5-11.0) K/mm3 RBC (3.65-5.03) M/mm3 Hgb (10.1-14.3) gm/dl Hct (30.3-42.9) % RDW (13.2-15.2) % Seg Neuts % (Manual) (40.0-70.0) % Lymphocytes % (Manual) (13.4-35.0) % Seg Neutrophils # Man (1.8-7.7) K/mm3 Lymphocytes # (Manual) (1.2-5.4) K/mm3 Sodium (137-145) mmol/L Chloride (98-107) mmol/L Carbon Dioxide (22-30) mmol/L Creatinine (0.7-1.2) mg/dL Glucose (65-100) mg/dL Lactic Acid 2.20 H* 2.50 H* (0.7-2.0) mmol/L - Imaging and cardiology CT scan - abdomen: report reviewed, image reviewed (edematous bowel loops. no abscess. Abdominal aorta aneurysm.) CT scan - chest: report reviewed, image reviewed (bilateral pneumonia)
--- NOTE | 2019-02-18 14:02 | Progress Note ---
Assessment and Plan Patient weak. Resting on 3 litres O2.O2 saturation 93%. No acute respiratory distress. - Patient Problems (1) COPD exacerbation Current Visit: Yes Status: Acute Plan to address problem: O2 3 litres via nasal canula. Albuterol/atrovent aerosol treatments. Continue I/V Solumedrol Continue cepepime. Continue S/C Lovenox. Continue Prevcid. (2) CHF exacerbation Current Visit: Yes Status: Acute (3) Gastrointestinal hemorrhage Current Visit: Yes Status: Acute Plan to address problem: Management as per gastroenterology. (4) Sepsis Current Visit: Yes Status: Acute Plan to address problem: Patient is on cefepime. (5) Pneumonia Current Visit: Yes Status: Acute Plan to address problem: Patient is on cepepime. Subjective Date of service: 02/18/19 Principal diagnosis: Ac hypoxemic Resp failure; Severe Anemia; AE-COPD; G.I. Bleed; Septic Shock Interval history: Patient weak. Resting on 3 litres O2.O2 saturation 93%. No acute respiratory distress. Objective Vital Signs - 12hr 02/18/19 02/18/19 02/18/19 03:00 04:00 05:00 Temperature 99.1 F Pulse Rate 91 H 86 89 Pulse Rate [ Bilateral Bases ] Pulse Rate [ From Monitor] Respiratory 24 17 25 H Rate Respiratory Rate [Bilateral Bases] Blood Pressure 121/68 128/66 123/67 O2 Sat by Pulse 99 100 100 Oximetry 02/18/19 02/18/19 02/18/19 06:00 07:00 07:50 Temperature Pulse Rate 83 82 Pulse Rate [ 91 H Bilateral Bases ] Pulse Rate [ From Monitor] Respiratory 21 23 Rate Respiratory 23 Rate [Bilateral Bases] Blood Pressure 128/70 140/74 O2 Sat by Pulse 100 100 Oximetry 02/18/19 02/18/19 02/18/19 07:51 08:00 09:01 Temperature 97.6 F Pulse Rate 88 97 H Pulse Rate [ Bilateral Bases ] Pulse Rate [ From Monitor] Respiratory 21 26 H Rate Respiratory Rate [Bilateral Bases] Blood Pressure 142/63 142/63 O2 Sat by Pulse 97 100 98 Oximetry 02/18/19 02/18/19 02/18/19 10:00 11:00 11:53 Temperature 98.7 F Pulse Rate 87 87 Pulse Rate [ Bilateral Bases ] Pulse Rate [ 80 From Monitor] Respiratory 22 23 Rate Respiratory Rate [Bilateral Bases] Blood Pressure 121/59 121/61 O2 Sat by Pulse 99 98 Oximetry 02/18/19 12:00 Temperature 98.7 F Pulse Rate 87 Pulse Rate [ Bilateral Bases ] Pulse Rate [ From Monitor] Respiratory 23 Rate Respiratory Rate [Bilateral Bases] Blood Pressure 129/63 O2 Sat by Pulse 95 Oximetry Constitutional: no acute distress, alert, other ( chronically ill looking, cachexia) Eyes: non-icteric ENT: oropharynx moist, other (on supplemental oxygen via nasal canula) Neck: supple, no lymphadenopathy, JVD, other (no thyromegaly) Effort: mildly labored Ascultation: Bilateral: diminished breath sounds (severely), rales, rhonchi (scant in bases), other (occassional accessory muscle use) Percussion: Bilateral: not dull Cardiovascular: irregular rhythm, other (S1,S2, ) Gastrointestinal: hypoactive bowel sounds, soft, non-tender, non-distended, other (no palpable HSM) Integumentary: normal Extremities: no cyanosis, pink and warm, pulses normal, no ischemia or petechiae Neurologic: non-focal exam (grossly), pupils equal and round, CN II-XII normal, other (weak) Psychiatric: mood appropriate, anxious CBC and BMP: 02/18/19 05:17 02/18/19 05:17 ABG, PT/INR, D-dimer: ABG POC ABG pH 7.462 (7.35-7.45) H 02/16/19 15:30 POC ABG HCO3 14.6 (22-26 mml/L) 02/16/19 15:30 POC ABG Total CO2 15 (23-27mmol/L) 02/16/19 15:30 POC ABG O2 Sat 86 02/16/19 15:30 PT/INR, D-dimer PT 19.3 Sec. (12.2-14.9) H 02/03/19 19:24 INR 1.52 (0.87-1.13) H 02/03/19 19:24 Abnormal lab findings: Abnormal Labs 02/03/19 02/03/19 02/03/19 02:57 18:06 18:06 WBC RBC 0.88 L Hgb 1.9 L* Hct 7.1 L* MCH 22 L MCHC 27 L RDW 23.3 H Plt Count 489 H Holmes % (Auto) 10.1 H Lymph # 1.1 L Seg Neutrophils % 71.2 H Seg Neuts % (Manual) Lymphocytes % (Manual) Seg Neutrophils # Man Lymphocytes # (Manual) PT INR POC ABG pH POC ABG pCO2 POC ABG pO2 Sodium Potassium Chloride Carbon Dioxide BUN Creatinine Glucose POC Glucose Lactic Acid Calcium Phosphorus Troponin T C-Reactive Protein NT-Pro-B Natriuret Pep 9160 H Total Protein Albumin Triglycerides HDL Cholesterol Urine WBC (Auto) 7.0 H Crossmatch 02/03/19 02/03/19 02/03/19 18:06 18:08 18:08 WBC RBC Hgb Hct MCH MCHC RDW Plt Count Holmes % (Auto) Lymph # Seg Neutrophils % Seg Neuts % (Manual) Lymphocytes % (Manual) Seg Neutrophils # Man Lymphocytes # (Manual) PT INR POC ABG pH POC ABG pCO2 POC ABG pO2 Sodium Potassium 3.3 L Chloride Carbon Dioxide 17 L BUN Creatinine Glucose POC Glucose Lactic Acid 9.90 H* Calcium 7.9 L Phosphorus Troponin T 0.134 H* C-Reactive Protein NT-Pro-B Natriuret Pep Total Protein 5.1 L Albumin 2.8 L Triglycerides 164 H HDL Cholesterol 31 L Urine WBC (Auto) Crossmatch See Detail 02/03/19 02/03/19 02/03/19 19:24 19:24 19:24 WBC RBC Hgb Hct MCH MCHC RDW Plt Count [place] % (Auto) Lymph # Seg Neutrophils % Seg Neuts % (Manual) Lymphocytes % (Manual) Seg Neutrophils # Man Lymphocytes # (Manual) PT 19.3 H INR 1.52 H POC ABG pH POC ABG pCO2 POC ABG pO2 Sodium Potassium Chloride Carbon Dioxide BUN Creatinine Glucose POC Glucose Lactic Acid 6.30 H* Calcium Phosphorus Troponin T 0.139 H* C-Reactive Protein NT-Pro-B Natriuret Pep Total Protein Albumin Triglycerides HDL Cholesterol Urine WBC (Auto) Crossmatch 02/03/19 02/03/19 02/04/19 20:30 23:36 01:18 WBC RBC Hgb Hct MCH MCHC RDW Plt Count [place] % (Auto) Lymph # Seg Neutrophils % Seg Neuts % (Manual) Lymphocytes % (Manual) Seg Neutrophils # Man Lymphocytes # (Manual) PT INR POC ABG pH 7.515 H POC ABG pCO2 POC ABG pO2 121 H Sodium Potassium Chloride Carbon Dioxide BUN Creatinine Glucose POC Glucose Lactic Acid 6.50 H* 5.70 H* Calcium Phosphorus Troponin T C-Reactive Protein NT-Pro-B Natriuret Pep Total Protein Albumin Triglycerides HDL Cholesterol Urine WBC (Auto) Crossmatch 02/04/19 02/04/19 02/04/19 04:35 04:35 04:35 WBC 17.5 H RBC Hgb Hct MCH 27 L MCHC RDW 15.9 H Plt Count [place] % (Auto) Lymph # Seg Neutrophils % Seg Neuts % (Manual) 96.0 H Lymphocytes % (Manual) 1.0 L Seg Neutrophils # Man 16.8 H Lymphocytes # (Manual) 0.2 L PT INR POC ABG pH POC ABG pCO2 POC ABG pO2 Sodium 147 H Potassium 3.2 L Chloride Carbon Dioxide 21 L BUN Creatinine Glucose 170 H POC Glucose Lactic Acid 3.60 H* Calcium 7.9 L Phosphorus Troponin T C-Reactive Protein NT-Pro-B Natriuret Pep Total Protein Albumin Triglycerides HDL Cholesterol Urine WBC (Auto) Crossmatch 02/04/19 02/04/19 02/04/19 10:59 17:07 17:07 WBC RBC Hgb Hct MCH MCHC RDW Plt Count [place] % (Auto) Lymph # Seg Neutrophils % Seg Neuts % (Manual) Lymphocytes % (Manual) Seg Neutrophils # Man Lymphocytes # (Manual) PT INR POC ABG pH POC ABG pCO2 POC ABG pO2 Sodium Potassium 3.1 L Chloride Carbon Dioxide BUN Creatinine Glucose POC Glucose Lactic Acid 2.30 H* Calcium Phosphorus Troponin T C-Reactive Protein 9.30 H NT-Pro-B Natriuret Pep Total Protein Albumin Triglycerides HDL Cholesterol Urine WBC (Auto) Crossmatch 02/04/19 02/04/19 02/05/19 17:15 21:04 00:05 WBC RBC Hgb Hct MCH MCHC RDW Plt Count [place] % (Auto) Lymph # Seg Neutrophils % Seg Neuts % (Manual) Lymphocytes % (Manual) Seg Neutrophils # Man Lymphocytes # (Manual) PT INR POC ABG pH 7.310 L POC ABG pCO2 POC ABG pO2 68 L Sodium Potassium Chloride Carbon Dioxide BUN Creatinine Glucose POC Glucose Lactic Acid 2.40 H* 2.70 H* Calcium Phosphorus Troponin T C-Reactive Protein NT-Pro-B Natriuret Pep Total Protein Albumin Triglycerides HDL Cholesterol Urine WBC (Auto) Crossmatch 02/05/19 02/05/19 02/05/19 04:41 04:41 12:54 WBC 15.1 H RBC Hgb Hct MCH MCHC RDW 16.6 H Plt Count [place] % (Auto) Lymph # Seg Neutrophils % Seg Neuts % (Manual) 90.0 H Lymphocytes % (Manual) 2.0 L Seg Neutrophils # Man 13.6 H Lymphocytes # (Manual) 0.3 L PT INR POC ABG pH POC ABG pCO2 POC ABG pO2 74 L Sodium 147 H Potassium Chloride 114.1 H Carbon Dioxide 20 L BUN 19 H Creatinine Glucose 192 H POC Glucose Lactic Acid Calcium 7.4 L Phosphorus Troponin T C-Reactive Protein NT-Pro-B Natriuret Pep Total Protein Albumin Triglycerides HDL Cholesterol Urine WBC (Auto) Crossmatch 02/06/19 02/06/19 02/06/19 01:46 11:42 11:42 WBC 21.1 H RBC Hgb Hct MCH MCHC RDW 17.0 H Plt Count [place] % (Auto) Lymph # Seg Neutrophils % Seg Neuts % (Manual) Lymphocytes % (Manual) Seg Neutrophils # Man Lymphocytes # (Manual) PT INR POC ABG pH POC ABG pCO2 34.4 L POC ABG pO2 56 L Sodium 151 H Potassium Chloride 112.1 H Carbon Dioxide BUN Creatinine Glucose 187 H POC Glucose Lactic Acid Calcium 8.1 L Phosphorus Troponin T C-Reactive Protein NT-Pro-B Natriuret Pep Total Protein Albumin Triglycerides HDL Cholesterol Urine WBC (Auto) Crossmatch 02/06/19 02/07/19 02/07/19 12:04 04:26 05:27 WBC 21.7 H RBC Hgb Hct MCH MCHC RDW 17.6 H Plt Count [place] % (Auto) Lymph # Seg Neutrophils % Seg Neuts % (Manual) 98.0 H Lymphocytes % (Manual) 1.0 L Seg Neutrophils # Man 21.3 H Lymphocytes # (Manual) 0.2 L PT INR POC ABG pH 7.481 H POC ABG pCO2 31.3 L POC ABG pO2 63 L 50 L Sodium Potassium Chloride Carbon Dioxide BUN Creatinine Glucose POC Glucose Lactic Acid Calcium Phosphorus Troponin T C-Reactive Protein NT-Pro-B Natriuret Pep Total Protein Albumin Triglycerides HDL Cholesterol Urine WBC (Auto) Crossmatch 05/23/19 05/23/19 05/23/19 05:27 05:29 23:07 WBC RBC Hgb Hct MCH MCHC RDW Plt Count [place] % (Auto) Lymph # Seg Neutrophils % Seg Neuts % (Manual) Lymphocytes % (Manual) Seg Neutrophils # Man Lymphocytes # (Manual) PT INR POC ABG pH POC ABG pCO2 POC ABG pO2 Sodium 147 H Potassium Chloride 108.4 H Carbon Dioxide BUN Creatinine 0.6 L Glucose 184 H POC Glucose 188 H 172 H Lactic Acid Calcium 8.3 L Phosphorus 1.50 L Troponin T C-Reactive Protein NT-Pro-B Natriuret Pep Total Protein Albumin Triglycerides HDL Cholesterol Urine WBC (Auto) Crossmatch 02/08/19 02/08/19 02/08/19 04:26 04:26 11:50 WBC 18.8 H RBC Hgb Hct MCH MCHC RDW 17.7 H Plt Count [place] % (Auto) Lymph # Seg Neutrophils % Seg Neuts % (Manual) Lymphocytes % (Manual) Seg Neutrophils # Man Lymphocytes # (Manual) PT INR POC ABG pH POC ABG pCO2 POC ABG pO2 Sodium Potassium Chloride Carbon Dioxide BUN 19 H Creatinine 0.6 L Glucose 190 H POC Glucose 185 H Lactic Acid Calcium 8.2 L Phosphorus Troponin T C-Reactive Protein NT-Pro-B Natriuret Pep Total Protein Albumin Triglycerides HDL Cholesterol Urine WBC (Auto) Crossmatch 02/08/19 02/08/19 02/08/19 12:01 17:44 18:52 WBC RBC Hgb Hct MCH MCHC RDW Plt Count [place] % (Auto) Lymph # Seg Neutrophils % Seg Neuts % (Manual) Lymphocytes % (Manual) Seg Neutrophils # Man Lymphocytes # (Manual) PT INR POC ABG pH POC ABG pCO2 POC ABG pO2 Sodium Potassium Chloride Carbon Dioxide BUN Creatinine Glucose POC Glucose 186 H 143 H Lactic Acid Calcium Phosphorus Troponin T 0.058 H D C-Reactive Protein NT-Pro-B Natriuret Pep Total Protein Albumin Triglycerides HDL Cholesterol Urine WBC (Auto) Crossmatch 02/08/19 02/09/19 02/09/19 23:24 03:57 03:57 WBC 20.3 H RBC Hgb Hct MCH MCHC RDW 18.0 H Plt Count 92 L Holmes % (Auto) Lymph # Seg Neutrophils % Seg Neuts % (Manual) Lymphocytes % (Manual) Seg Neutrophils # Man Lymphocytes # (Manual) PT INR POC ABG pH POC ABG pCO2 POC ABG pO2 Sodium Potassium Chloride Carbon Dioxide BUN 29 H Creatinine 0.5 L Glucose 172 H POC Glucose 205 H Lactic Acid Calcium Phosphorus Troponin T C-Reactive Protein NT-Pro-B Natriuret Pep Total Protein Albumin Triglycerides HDL Cholesterol Urine WBC (Auto) Crossmatch 02/09/19 02/09/19 02/09/19 04:49 12:11 17:27 WBC RBC Hgb Hct MCH MCHC RDW Plt Count [place] % (Auto) Lymph # Seg Neutrophils % Seg Neuts % (Manual) Lymphocytes % (Manual) Seg Neutrophils # Man Lymphocytes # (Manual) PT INR POC ABG pH 7.473 H POC ABG pCO2 POC ABG pO2 Sodium Potassium Chloride Carbon Dioxide BUN Creatinine Glucose POC Glucose 136 H 149 H Lactic Acid Calcium Phosphorus Troponin T C-Reactive Protein NT-Pro-B Natriuret Pep Total Protein Albumin Triglycerides HDL Cholesterol Urine WBC (Auto) Crossmatch 02/10/19 02/10/19 02/10/19 04:59 04:59 04:59 WBC 16.5 H RBC Hgb Hct MCH MCHC RDW 17.7 H Plt Count 94 L Holmes % (Auto) Lymph # Seg Neutrophils % Seg Neuts % (Manual) Lymphocytes % (Manual) Seg Neutrophils # Man Lymphocytes # (Manual) PT INR POC ABG pH POC ABG pCO2 POC ABG pO2 Sodium Potassium Chloride Carbon Dioxide BUN 31 H 31 H Creatinine 0.6 L 0.6 L Glucose 149 H 152 H POC Glucose Lactic Acid Calcium Phosphorus Troponin T C-Reactive Protein NT-Pro-B Natriuret Pep Total Protein Albumin Triglycerides HDL Cholesterol Urine WBC (Auto) Crossmatch 02/10/19 02/11/19 02/11/19 05:10 00:06 10:26 WBC 16.4 H RBC Hgb Hct MCH MCHC RDW 18.3 H Plt Count 111 L Holmes % (Auto) Lymph # Seg Neutrophils % Seg Neuts % (Manual) Lymphocytes % (Manual) Seg Neutrophils # Man Lymphocytes # (Manual) PT INR POC ABG pH 7.518 H 7.482 H POC ABG pCO2 POC ABG pO2 173 H 119 H Sodium Potassium Chloride Carbon Dioxide BUN Creatinine Glucose POC Glucose Lactic Acid Calcium Phosphorus Troponin T C-Reactive Protein NT-Pro-B Natriuret Pep Total Protein Albumin Triglycerides HDL Cholesterol Urine WBC (Auto) Crossmatch 02/11/19 02/12/19 02/12/19 10:26 04:19 04:19 WBC 16.8 H RBC 3.44 L Hgb 9.6 L Hct 30.2 L D MCH MCHC RDW 18.0 H Plt Count 131 L Holmes % (Auto) Lymph # Seg Neutrophils % Seg Neuts % (Manual) Lymphocytes % (Manual) Seg Neutrophils # Man Lymphocytes # (Manual) PT INR POC ABG pH POC ABG pCO2 POC ABG pO2 Sodium 148 H 147 H Potassium Chloride 112.7 H 114.7 H Carbon Dioxide BUN 23 H Creatinine 0.5 L 0.5 L Glucose 195 H 152 H POC Glucose Lactic Acid Calcium Phosphorus Troponin T C-Reactive Protein NT-Pro-B Natriuret Pep Total Protein Albumin Triglycerides HDL Cholesterol Urine WBC (Auto) Crossmatch 02/12/19 02/12/19 02/13/19 05:44 11:54 04:33 WBC 16.7 H RBC 3.24 L Hgb 9.1 L Hct 28.7 L MCH MCHC RDW 18.5 H Plt Count [place] % (Auto) Lymph # Seg Neutrophils % Seg Neuts % (Manual) 95.0 H Lymphocytes % (Manual) 3.0 L Seg Neutrophils # Man 15.9 H Lymphocytes # (Manual) 0.5 L PT INR POC ABG pH 7.466 H POC ABG pCO2 33.5 L POC ABG pO2 118 H Sodium Potassium Chloride Carbon Dioxide BUN Creatinine Glucose POC Glucose 147 H Lactic Acid Calcium Phosphorus Troponin T C-Reactive Protein NT-Pro-B Natriuret Pep Total Protein Albumin Triglycerides HDL Cholesterol Urine WBC (Auto) Crossmatch 02/13/19 02/14/19 02/14/19 04:33 04:34 04:34 WBC 16.3 H RBC 3.56 L Hgb 10.0 L Hct MCH MCHC RDW 19.1 H Plt Count [place] % (Auto) Lymph # Seg Neutrophils % Seg Neuts % (Manual) 98.0 H Lymphocytes % (Manual) 1.0 L Seg Neutrophils # Man 16.0 H Lymphocytes # (Manual) 0.2 L PT INR POC ABG pH POC ABG pCO2 POC ABG pO2 Sodium Potassium Chloride 113.7 H 113.1 H Carbon Dioxide BUN Creatinine 0.4 L 0.4 L Glucose 193 H 215 H POC Glucose Lactic Acid Calcium Phosphorus Troponin T C-Reactive Protein NT-Pro-B Natriuret Pep Total Protein Albumin Triglycerides HDL Cholesterol Urine WBC (Auto) Crossmatch 02/15/19 02/16/19 02/16/19 14:30 04:47 04:47 WBC 24.2 H 22.3 H RBC 3.31 L Hgb 9.4 L Hct 29.3 L MCH 27 L MCHC RDW 19.6 H 20.5 H Plt Count [place] % (Auto) Lymph # Seg Neutrophils % Seg Neuts % (Manual) 90.0 H Lymphocytes % (Manual) 1.0 L Seg Neutrophils # Man 20.1 H Lymphocytes # (Manual) 0.2 L PT INR POC ABG pH POC ABG pCO2 POC ABG pO2 Sodium Potassium Chloride 110.0 H Carbon Dioxide 18 L BUN Creatinine 0.3 L Glucose 115 H POC Glucose Lactic Acid Calcium Phosphorus Troponin T C-Reactive Protein NT-Pro-B Natriuret Pep Total Protein Albumin Triglycerides HDL Cholesterol Urine WBC (Auto) Crossmatch 02/16/19 02/16/19 02/16/19 15:30 15:58 15:58 WBC RBC Hgb Hct MCH MCHC RDW Plt Count [place] % (Auto) Lymph # Seg Neutrophils % Seg Neuts % (Manual) Lymphocytes % (Manual) Seg Neutrophils # Man Lymphocytes # (Manual) PT INR POC ABG pH 7.462 H POC ABG pCO2 POC ABG pO2 Sodium Potassium Chloride Carbon Dioxide BUN Creatinine Glucose POC Glucose Lactic Acid 2.20 H* Calcium Phosphorus Troponin T C-Reactive Protein 2.20 H NT-Pro-B Natriuret Pep Total Protein Albumin Triglycerides HDL Cholesterol Urine WBC (Auto) Crossmatch 02/16/19 02/17/19 02/17/19 18:01 04:56 04:56 WBC 28.9 H RBC 3.52 L Hgb 9.9 L Hct MCH MCHC RDW 19.8 H Plt Count [place] % (Auto) Lymph # Seg Neutrophils % Seg Neuts % (Manual) 91.0 H Lymphocytes % (Manual) 0.5 L Seg Neutrophils # Man 26.3 H Lymphocytes # (Manual) 0.1 L PT INR POC ABG pH POC ABG pCO2 POC ABG pO2 Sodium 132 L Potassium Chloride Carbon Dioxide 17 L BUN Creatinine 0.3 L Glucose 125 H POC Glucose Lactic Acid 2.80 H* Calcium Phosphorus Troponin T C-Reactive Protein NT-Pro-B Natriuret Pep Total Protein Albumin Triglycerides HDL Cholesterol Urine WBC (Auto) Crossmatch 02/17/19 02/17/19 02/17/19 04:56 07:56 09:06 WBC RBC Hgb Hct MCH MCHC RDW Plt Count [place] % (Auto) Lymph # Seg Neutrophils % Seg Neuts % (Manual) Lymphocytes % (Manual) Seg Neutrophils # Man Lymphocytes # (Manual) PT INR POC ABG pH POC ABG pCO2 POC ABG pO2 Sodium Potassium Chloride Carbon Dioxide BUN Creatinine Glucose POC Glucose Lactic Acid 2.10 H* 2.40 H* 2.20 H* Calcium Phosphorus Troponin T C-Reactive Protein NT-Pro-B Natriuret Pep Total Protein Albumin Triglycerides HDL Cholesterol Urine WBC (Auto) Crossmatch 02/17/19 02/18/19 02/18/19 10:22 05:17 05:17 WBC 29.6 H RBC 3.07 L Hgb 8.5 L Hct 27.4 L MCH MCHC RDW 20.7 H Plt Count [place] % (Auto) Lymph # Seg Neutrophils % Seg Neuts % (Manual) 99.0 H Lymphocytes % (Manual) 0 L Seg Neutrophils # Man 29.3 H Lymphocytes # (Manual) 0.0 L PT INR POC ABG pH POC ABG pCO2 POC ABG pO2 Sodium 136 L Potassium Chloride 108.5 H Carbon Dioxide 16 L BUN Creatinine 0.2 L Glucose 230 H POC Glucose Lactic Acid 2.40 H* Calcium Phosphorus Troponin T C-Reactive Protein NT-Pro-B Natriuret Pep Total Protein Albumin Triglycerides HDL Cholesterol Urine WBC (Auto) Crossmatch 02/18/19 02/18/19 02/18/19 05:17 07:41 09:00 WBC RBC Hgb Hct MCH MCHC RDW Plt Count [place] % (Auto) Lymph # Seg Neutrophils % Seg Neuts % (Manual) Lymphocytes % (Manual) Seg Neutrophils # Man Lymphocytes # (Manual) PT INR POC ABG pH POC ABG pCO2 POC ABG pO2 Sodium Potassium Chloride Carbon Dioxide BUN Creatinine Glucose POC Glucose Lactic Acid 2.60 H* 2.20 H* 2.50 H* Calcium Phosphorus Troponin T C-Reactive Protein NT-Pro-B Natriuret Pep Total Protein Albumin Triglycerides HDL Cholesterol Urine WBC (Auto) Crossmatch 02/18/19 12:18 WBC RBC Hgb Hct MCH MCHC RDW Plt Count [place] % (Auto) Lymph # Seg Neutrophils % Seg Neuts % (Manual) Lymphocytes % (Manual) Seg Neutrophils # Man Lymphocytes # (Manual) PT INR POC ABG pH POC ABG pCO2 POC ABG pO2 Sodium Potassium Chloride Carbon Dioxide BUN Creatinine Glucose POC Glucose Lactic Acid 2.50 H* Calcium Phosphorus Troponin T C-Reactive Protein NT-Pro-B Natriuret Pep Total Protein Albumin Triglycerides HDL Cholesterol Urine WBC (Auto) Crossmatch Chest x-ray: report reviewed (IMPRESSION: New pulmonary infiltrate pneumonia vs atelectasis.), image reviewed CT scan - chest: report reviewed (Multifocal infiltrates are concerning for pneumonia. Dependent secretions seen in the trachea. ), image reviewed Allied health notes reviewed: nursing
[2019-02-19] MEDS: SOLU-Medrol IV SCH ×3 (01:01→17:52)
[2019-02-19] MEDS: DUONEB *Not for PRN Use IH SCH ×4 (02:19→20:35)
[2019-02-19] MEDS: PREVACID SOLUTAB FEEDTUBE SCH (09:56)
[2019-02-19] MEDS: MAXIPIME/NS 1 GM/100 ML 1 GM/100 ML BAG IV SCH ×2 (09:56→21:41)
[2019-02-19] MEDS: LOVENOX SUB-Q SCH (09:56)
[2019-02-19] MEDS: SODIUM CHLORIDE FLUSH SYRINGE 10 ML IV SCH ×2 (09:57→21:42)
[2019-02-19] MEDS: VANCOMYCIN 750 MG in NACL 0.9% 250ML 250 ML IV SCH (10:00)
--- NOTE | 2019-02-19 10:34 | Progress Note ---
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 cecal volvulus 2. ARF - now off vent 3. anemia 4. GIB - no further melena/bloody BM 5. n/v, SBO 6. hx CHF, EF 20-25% Plan: 1. c/w TF at goal 2. restart pureed diet with thin liquids as per speech therapy. Will slowly wean TF if patient doing well with oral diet 3. Gi ppx 4. DVT ppx 5. prn PO pain control 6. OOB/PT 7. PNA - mgmt per ID and Pulm Plan discussed with RN and . Thank you, please call with questions. Subjective Date of service: 02/19/19 Narrative: Pt seen and examined. Denies abdominal pain. Has had multiple BMs. No f/c, n/v Objective Vital Signs - 12hr 02/18/19 02/18/19 02/19/19 23:00 23:05 00:00 Temperature 98.6 F Pulse Rate 108 H 113 H 104 H Pulse Rate [ Bilateral Bases ] Respiratory 27 H 30 H 30 H Rate Respiratory Rate [Bilateral Bases] Blood Pressure 120/68 120/68 122/66 O2 Sat by Pulse 99 96 95 Oximetry 02/19/19 02/19/19 02/19/19 01:00 02:00 02:18 Temperature Pulse Rate 109 H 100 H Pulse Rate [ 102 H Bilateral Bases ] Respiratory 27 H 30 H Rate Respiratory 26 H Rate [Bilateral Bases] Blood Pressure 124/72 123/69 O2 Sat by Pulse 97 96 Oximetry 02/19/19 02/19/19 02/19/19 03:00 04:00 05:00 Temperature 98.6 F Pulse Rate 99 H 97 H 96 H Pulse Rate [ Bilateral Bases ] Respiratory 24 30 H 25 H Rate Respiratory Rate [Bilateral Bases] Blood Pressure 129/72 134/73 139/75 O2 Sat by Pulse 96 97 99 Oximetry 02/19/19 02/19/19 02/19/19 06:00 07:00 08:00 Temperature 97.2 F L Pulse Rate 92 H 91 H 95 H Pulse Rate [ 102 H Bilateral Bases ] Respiratory 23 22 24 Rate Respiratory 26 H Rate [Bilateral Bases] Blood Pressure 145/79 142/78 129/78 O2 Sat by Pulse 100 100 100 Oximetry - General physical appearance Narrative Exam: Gen: Awake and alert. NAD ENT: dobhoff in place with TF running CV: s1, S2+ Resp: on bipap Abd: soft, NT, ND. incision c/d/i Ext; no c/c/e - Labs 02/18/19 05:17 02/18/19 05:17
[2019-02-19] MEDS: BROVANA NEBU IH SCH ×2 (11:00→20:36)
[2019-02-19] MEDS: PULMICORT IH SCH ×2 (11:00→20:35)
--- NOTE | 2019-02-19 14:09 | Progress Note ---
Assessment and Plan Patient weak. Resting on 2 litres O2.O2 saturation 93%. No acute respiratory distress. BiPap stand by in the room. - Patient Problems (1) COPD exacerbation Current Visit: Yes Status: Acute Plan to address problem: O2 2 litres via nasal canula. Albuterol/atrovent aerosol treatments. Continue I/V Solumedrol Continue cepepime. Continue S/C Lovenox. Continue Prevcid. (2) CHF exacerbation Current Visit: Yes Status: Acute Plan to address problem: management for cardiology (3) Gastrointestinal hemorrhage Current Visit: Yes Status: Acute Plan to address problem: Management as per gastroenterology. (4) Sepsis Current Visit: Yes Status: Acute Plan to address problem: Patient is on cefepime and vancomycyn. (5) Pneumonia Current Visit: Yes Status: Acute Plan to address problem: Patient is on cepepime and vancomycyn. Subjective Date of service: 02/19/19 Principal diagnosis: Ac hypoxemic Resp failure; Severe Anemia; AE-COPD; G.I. Bleed; Septic Shock Interval history: Patient weak. Resting on 2 litres O2.O2 saturation 93%. No acute respiratory dis tress. BiPap stand by in the room. Objective Vital Signs - 12hr 02/19/19 02/19/19 02/19/19 02:18 03:00 04:00 Temperature 98.6 F Pulse Rate 99 H 97 H Pulse Rate [ 102 H Bilateral Bases ] Respiratory 24 30 H Rate Respiratory 26 H Rate [Bilateral Bases] Blood Pressure 129/72 134/73 O2 Sat by Pulse 96 97 Oximetry 02/19/19 02/19/19 02/19/19 05:00 06:00 07:00 Temperature Pulse Rate 96 H 92 H 91 H Pulse Rate [ Bilateral Bases ] Respiratory 25 H 23 22 Rate Respiratory Rate [Bilateral Bases] Blood Pressure 139/75 145/79 142/78 O2 Sat by Pulse 99 100 100 Oximetry 02/19/19 02/19/19 02/19/19 08:00 09:00 10:00 Temperature 97.2 F L Pulse Rate 95 H 93 H 91 H Pulse Rate [ 102 H Bilateral Bases ] Respiratory 24 23 20 Rate Respiratory 26 H Rate [Bilateral Bases] Blood Pressure 129/78 138/77 131/79 O2 Sat by Pulse 100 100 97 Oximetry Constitutional: no acute distress, alert, other ( chronically ill looking, cachexia) Eyes: non-icteric ENT: oropharynx moist, other (on supplemental oxygen via nasal canula) Neck: supple, no lymphadenopathy, JVD, other (no thyromegaly) Effort: mildly labored Ascultation: Bilateral: diminished breath sounds (severely), rales, rhonchi (scant in bases), other (occassional accessory muscle use) Percussion: Bilateral: not dull Cardiovascular: irregular rhythm, other (S1,S2, ) Gastrointestinal: hypoactive bowel sounds, soft, non-tender, non-distended, other (no palpable HSM) Integumentary: normal Extremities: no cyanosis, pink and warm, pulses normal, no ischemia or petechiae Neurologic: non-focal exam (grossly), pupils equal and round, CN II-XII normal, other (weak) Psychiatric: mood appropriate, anxious CBC and BMP: 02/18/19 05:17 02/18/19 05:17 ABG, PT/INR, D-dimer: ABG POC ABG pH 7.462 (7.35-7.45) H 02/16/19 15:30 POC ABG HCO3 14.6 (22-26 mml/L) 02/16/19 15:30 POC ABG Total CO2 15 (23-27mmol/L) 02/16/19 15:30 POC ABG O2 Sat 86 02/16/19 15:30 PT/INR, D-dimer PT 19.3 Sec. (12.2-14.9) H 02/03/19 19:24 INR 1.52 (0.87-1.13) H 02/03/19 19:24 Abnormal lab findings: Abnormal Labs 02/03/19 02/03/19 02/03/19 02:57 18:06 18:06 WBC RBC 0.88 L Hgb 1.9 L* Hct 7.1 L* MCH 22 L MCHC 27 L RDW 23.3 H Plt Count 489 H [place] % (Auto) 10.1 H Lymph # 1.1 L Seg Neutrophils % 71.2 H Seg Neuts % (Manual) Lymphocytes % (Manual) Seg Neutrophils # Man Lymphocytes # (Manual) PT INR POC ABG pH POC ABG pCO2 POC ABG pO2 Sodium Potassium Chloride Carbon Dioxide BUN Creatinine Glucose POC Glucose Lactic Acid Calcium Phosphorus Troponin T C-Reactive Protein NT-Pro-B Natriuret Pep 9160 H Total Protein Albumin Triglycerides HDL Cholesterol Urine WBC (Auto) 7.0 H Crossmatch 02/03/19 02/03/19 02/03/19 18:06 18:08 18:08 WBC RBC Hgb Hct MCH MCHC RDW Plt Count [place] % (Auto) Lymph # Seg Neutrophils % Seg Neuts % (Manual) Lymphocytes % (Manual) Seg Neutrophils # Man Lymphocytes # (Manual) PT INR POC ABG pH POC ABG pCO2 POC ABG pO2 Sodium Potassium 3.3 L Chloride Carbon Dioxide 17 L BUN Creatinine Glucose POC Glucose Lactic Acid 9.90 H* Calcium 7.9 L Phosphorus Troponin T 0.134 H* C-Reactive Protein NT-Pro-B Natriuret Pep Total Protein 5.1 L Albumin 2.8 L Triglycerides 164 H HDL Cholesterol 31 L Urine WBC (Auto) Crossmatch See Detail 02/03/19 02/03/19 02/03/19 19:24 19:24 19:24 WBC RBC Hgb Hct MCH MCHC RDW Plt Count [place] % (Auto) Lymph # Seg Neutrophils % Seg Neuts % (Manual) Lymphocytes % (Manual) Seg Neutrophils # Man Lymphocytes # (Manual) PT 19.3 H INR 1.52 H POC ABG pH POC ABG pCO2 POC ABG pO2 Sodium Potassium Chloride Carbon Dioxide BUN Creatinine Glucose POC Glucose Lactic Acid 6.30 H* Calcium Phosphorus Troponin T 0.139 H* C-Reactive Protein NT-Pro-B Natriuret Pep Total Protein Albumin Triglycerides HDL Cholesterol Urine WBC (Auto) Crossmatch 02/03/19 02/03/19 02/04/19 20:30 23:36 01:18 WBC RBC Hgb Hct MCH MCHC RDW Plt Count [place] % (Auto) Lymph # Seg Neutrophils % Seg Neuts % (Manual) Lymphocytes % (Manual) Seg Neutrophils # Man Lymphocytes # (Manual) PT INR POC ABG pH 7.515 H POC ABG pCO2 POC ABG pO2 121 H Sodium Potassium Chloride Carbon Dioxide BUN Creatinine Glucose POC Glucose Lactic Acid 6.50 H* 5.70 H* Calcium Phosphorus Troponin T C-Reactive Protein NT-Pro-B Natriuret Pep Total Protein Albumin Triglycerides HDL Cholesterol Urine WBC (Auto) Crossmatch 02/04/19 02/04/19 02/04/19 04:35 04:35 04:35 WBC 17.5 H RBC Hgb Hct MCH 27 L MCHC RDW 15.9 H Plt Count [place] % (Auto) Lymph # Seg Neutrophils % Seg Neuts % (Manual) 96.0 H Lymphocytes % (Manual) 1.0 L Seg Neutrophils # Man 16.8 H Lymphocytes # (Manual) 0.2 L PT INR POC ABG pH POC ABG pCO2 POC ABG pO2 Sodium 147 H Potassium 3.2 L Chloride Carbon Dioxide 21 L BUN Creatinine Glucose 170 H POC Glucose Lactic Acid 3.60 H* Calcium 7.9 L Phosphorus Troponin T C-Reactive Protein NT-Pro-B Natriuret Pep Total Protein Albumin Triglycerides HDL Cholesterol Urine WBC (Auto) Crossmatch 02/04/19 02/04/19 02/04/19 10:59 17:07 17:07 WBC RBC Hgb Hct MCH MCHC RDW Plt Count [place] % (Auto) Lymph # Seg Neutrophils % Seg Neuts % (Manual) Lymphocytes % (Manual) Seg Neutrophils # Man Lymphocytes # (Manual) PT INR POC ABG pH POC ABG pCO2 POC ABG pO2 Sodium Potassium 3.1 L Chloride Carbon Dioxide BUN Creatinine Glucose POC Glucose Lactic Acid 2.30 H* Calcium Phosphorus Troponin T C-Reactive Protein 9.30 H NT-Pro-B Natriuret Pep Total Protein Albumin Triglycerides HDL Cholesterol Urine WBC (Auto) Crossmatch 02/04/19 02/04/19 02/05/19 17:15 21:04 00:05 WBC RBC Hgb Hct MCH MCHC RDW Plt Count [place] % (Auto) Lymph # Seg Neutrophils % Seg Neuts % (Manual) Lymphocytes % (Manual) Seg Neutrophils # Man Lymphocytes # (Manual) PT INR POC ABG pH 7.310 L POC ABG pCO2 POC ABG pO2 68 L Sodium Potassium Chloride Carbon Dioxide BUN Creatinine Glucose POC Glucose Lactic Acid 2.40 H* 2.70 H* Calcium Phosphorus Troponin T C-Reactive Protein NT-Pro-B Natriuret Pep Total Protein Albumin Triglycerides HDL Cholesterol Urine WBC (Auto) Crossmatch 02/05/19 02/05/19 02/05/19 04:41 04:41 12:54 WBC 15.1 H RBC Hgb Hct MCH MCHC RDW 16.6 H Plt Count [place] % (Auto) Lymph # Seg Neutrophils % Seg Neuts % (Manual) 90.0 H Lymphocytes % (Manual) 2.0 L Seg Neutrophils # Man 13.6 H Lymphocytes # (Manual) 0.3 L PT INR POC ABG pH POC ABG pCO2 POC ABG pO2 74 L Sodium 147 H Potassium Chloride 114.1 H Carbon Dioxide 20 L BUN 19 H Creatinine Glucose 192 H POC Glucose Lactic Acid Calcium 7.4 L Phosphorus Troponin T C-Reactive Protein NT-Pro-B Natriuret Pep Total Protein Albumin Triglycerides HDL Cholesterol Urine WBC (Auto) Crossmatch 02/06/19 02/06/19 02/06/19 01:46 11:42 11:42 WBC 21.1 H RBC Hgb Hct MCH MCHC RDW 17.0 H Plt Count [place] % (Auto) Lymph # Seg Neutrophils % Seg Neuts % (Manual) Lymphocytes % (Manual) Seg Neutrophils # Man Lymphocytes # (Manual) PT INR POC ABG pH POC ABG pCO2 34.4 L POC ABG pO2 56 L Sodium 151 H Potassium Chloride 112.1 H Carbon Dioxide BUN Creatinine Glucose 187 H POC Glucose Lactic Acid Calcium 8.1 L Phosphorus Troponin T C-Reactive Protein NT-Pro-B Natriuret Pep Total Protein Albumin Triglycerides HDL Cholesterol Urine WBC (Auto) Crossmatch 02/06/19 02/07/19 02/07/19 12:04 04:26 05:27 WBC 21.7 H RBC Hgb Hct MCH MCHC RDW 17.6 H Plt Count [place] % (Auto) Lymph # Seg Neutrophils % Seg Neuts % (Manual) 98.0 H Lymphocytes % (Manual) 1.0 L Seg Neutrophils # Man 21.3 H Lymphocytes # (Manual) 0.2 L PT INR POC ABG pH 7.481 H POC ABG pCO2 31.3 L POC ABG pO2 63 L 50 L Sodium Potassium Chloride Carbon Dioxide BUN Creatinine Glucose POC Glucose Lactic Acid Calcium Phosphorus Troponin T C-Reactive Protein NT-Pro-B Natriuret Pep Total Protein Albumin Triglycerides HDL Cholesterol Urine WBC (Auto) Crossmatch 02/07/19 02/07/19 02/07/19 05:27 05:29 23:07 WBC RBC Hgb Hct MCH MCHC RDW Plt Count [place] % (Auto) Lymph # Seg Neutrophils % Seg Neuts % (Manual) Lymphocytes % (Manual) Seg Neutrophils # Man Lymphocytes # (Manual) PT INR POC ABG pH POC ABG pCO2 POC ABG pO2 Sodium 147 H Potassium Chloride 108.4 H Carbon Dioxide BUN Creatinine 0.6 L Glucose 184 H POC Glucose 188 H 172 H Lactic Acid Calcium 8.3 L Phosphorus 1.50 L Troponin T C-Reactive Protein NT-Pro-B Natriuret Pep Total Protein Albumin Triglycerides HDL Cholesterol Urine WBC (Auto) Crossmatch 02/08/19 02/08/19 02/08/19 04:26 04:26 11:50 WBC 18.8 H RBC Hgb Hct MCH MCHC RDW 17.7 H Plt Count [place] % (Auto) Lymph # Seg Neutrophils % Seg Neuts % (Manual) Lymphocytes % (Manual) Seg Neutrophils # Man Lymphocytes # (Manual) PT INR POC ABG pH POC ABG pCO2 POC ABG pO2 Sodium Potassium Chloride Carbon Dioxide BUN 19 H Creatinine 0.6 L Glucose 190 H POC Glucose 185 H Lactic Acid Calcium 8.2 L Phosphorus Troponin T C-Reactive Protein NT-Pro-B Natriuret Pep Total Protein Albumin Triglycerides HDL Cholesterol Urine WBC (Auto) Crossmatch 02/08/19 02/08/19 02/08/19 12:01 17:44 18:52 WBC RBC Hgb Hct MCH MCHC RDW Plt Count [place] % (Auto) Lymph # Seg Neutrophils % Seg Neuts % (Manual) Lymphocytes % (Manual) Seg Neutrophils # Man Lymphocytes # (Manual) PT INR POC ABG pH POC ABG pCO2 POC ABG pO2 Sodium Potassium Chloride Carbon Dioxide BUN Creatinine Glucose POC Glucose 186 H 143 H Lactic Acid Calcium Phosphorus Troponin T 0.058 H D C-Reactive Protein NT-Pro-B Natriuret Pep Total Protein Albumin Triglycerides HDL Cholesterol Urine WBC (Auto) Crossmatch 02/08/19 02/09/19 02/09/19 23:24 03:57 03:57 WBC 20.3 H RBC Hgb Hct MCH MCHC RDW 18.0 H Plt Count 92 L [place] % (Auto) Lymph # Seg Neutrophils % Seg Neuts % (Manual) Lymphocytes % (Manual) Seg Neutrophils # Man Lymphocytes # (Manual) PT INR POC ABG pH POC ABG pCO2 POC ABG pO2 Sodium Potassium Chloride Carbon Dioxide BUN 29 H Creatinine 0.5 L Glucose 172 H POC Glucose 205 H Lactic Acid Calcium Phosphorus Troponin T C-Reactive Protein NT-Pro-B Natriuret Pep Total Protein Albumin Triglycerides HDL Cholesterol Urine WBC (Auto) Crossmatch 02/09/19 02/09/19 02/09/19 04:49 12:11 17:27 WBC RBC Hgb Hct MCH MCHC RDW Plt Count [place] % (Auto) Lymph # Seg Neutrophils % Seg Neuts % (Manual) Lymphocytes % (Manual) Seg Neutrophils # Man Lymphocytes # (Manual) PT INR POC ABG pH 7.473 H POC ABG pCO2 POC ABG pO2 Sodium Potassium Chloride Carbon Dioxide BUN Creatinine Glucose POC Glucose 136 H 149 H Lactic Acid Calcium Phosphorus Troponin T C-Reactive Protein NT-Pro-B Natriuret Pep Total Protein Albumin Triglycerides HDL Cholesterol Urine WBC (Auto) Crossmatch 02/10/19 02/10/19 02/10/19 04:59 04:59 04:59 WBC 16.5 H RBC Hgb Hct MCH MCHC RDW 17.7 H Plt Count 94 L [place] % (Auto) Lymph # Seg Neutrophils % Seg Neuts % (Manual) Lymphocytes % (Manual) Seg Neutrophils # Man Lymphocytes # (Manual) PT INR POC ABG pH POC ABG pCO2 POC ABG pO2 Sodium Potassium Chloride Carbon Dioxide BUN 31 H 31 H Creatinine 0.6 L 0.6 L Glucose 149 H 152 H POC Glucose Lactic Acid Calcium Phosphorus Troponin T C-Reactive Protein NT-Pro-B Natriuret Pep Total Protein Albumin Triglycerides HDL Cholesterol Urine WBC (Auto) Crossmatch 02/10/19 02/11/19 02/11/19 05:10 00:06 10:26 WBC 16.4 H RBC Hgb Hct MCH MCHC RDW 18.3 H Plt Count 111 L [place] % (Auto) Lymph # Seg Neutrophils % Seg Neuts % (Manual) Lymphocytes % (Manual) Seg Neutrophils # Man Lymphocytes # (Manual) PT INR POC ABG pH 7.518 H 7.482 H POC ABG pCO2 POC ABG pO2 173 H 119 H Sodium Potassium Chloride Carbon Dioxide BUN Creatinine Glucose POC Glucose Lactic Acid Calcium Phosphorus Troponin T C-Reactive Protein NT-Pro-B Natriuret Pep Total Protein Albumin Triglycerides HDL Cholesterol Urine WBC (Auto) Crossmatch 02/11/19 02/12/19 02/12/19 10:26 04:19 04:19 WBC 16.8 H RBC 3.44 L Hgb 9.6 L Hct 30.2 L D MCH MCHC RDW 18.0 H Plt Count 131 L [place] % (Auto) Lymph # Seg Neutrophils % Seg Neuts % (Manual) Lymphocytes % (Manual) Seg Neutrophils # Man Lymphocytes # (Manual) PT INR POC ABG pH POC ABG pCO2 POC ABG pO2 Sodium 148 H 147 H Potassium Chloride 112.7 H 114.7 H Carbon Dioxide BUN 23 H Creatinine 0.5 L 0.5 L Glucose 195 H 152 H POC Glucose Lactic Acid Calcium Phosphorus Troponin T C-Reactive Protein NT-Pro-B Natriuret Pep Total Protein Albumin Triglycerides HDL Cholesterol Urine WBC (Auto) Crossmatch 02/12/19 02/12/19 02/13/19 05:44 11:54 04:33 WBC 16.7 H RBC 3.24 L Hgb 9.1 L Hct 28.7 L MCH MCHC RDW 18.5 H Plt Count [place] % (Auto) Lymph # Seg Neutrophils % Seg Neuts % (Manual) 95.0 H Lymphocytes % (Manual) 3.0 L Seg Neutrophils # Man 15.9 H Lymphocytes # (Manual) 0.5 L PT INR POC ABG pH 7.466 H POC ABG pCO2 33.5 L POC ABG pO2 118 H Sodium Potassium Chloride Carbon Dioxide BUN Creatinine Glucose POC Glucose 147 H Lactic Acid Calcium Phosphorus Troponin T C-Reactive Protein NT-Pro-B Natriuret Pep Total Protein Albumin Triglycerides HDL Cholesterol Urine WBC (Auto) Crossmatch 02/13/19 02/14/19 02/14/19 04:33 04:34 04:34 WBC 16.3 H RBC 3.56 L Hgb 10.0 L Hct MCH MCHC RDW 19.1 H Plt Count [place] % (Auto) Lymph # Seg Neutrophils % Seg Neuts % (Manual) 98.0 H Lymphocytes % (Manual) 1.0 L Seg Neutrophils # Man 16.0 H Lymphocytes # (Manual) 0.2 L PT INR POC ABG pH POC ABG pCO2 POC ABG pO2 Sodium Potassium Chloride 113.7 H 113.1 H Carbon Dioxide BUN Creatinine 0.4 L 0.4 L Glucose 193 H 215 H POC Glucose Lactic Acid Calcium Phosphorus Troponin T C-Reactive Protein NT-Pro-B Natriuret Pep Total Protein Albumin Triglycerides HDL Cholesterol Urine WBC (Auto) Crossmatch 02/15/19 02/16/19 02/16/19 14:30 04:47 04:47 WBC 24.2 H 22.3 H RBC 3.31 L Hgb 9.4 L Hct 29.3 L MCH 27 L MCHC RDW 19.6 H 20.5 H Plt Count [place] % (Auto) Lymph # Seg Neutrophils % Seg Neuts % (Manual) 90.0 H Lymphocytes % (Manual) 1.0 L Seg Neutrophils # Man 20.1 H Lymphocytes # (Manual) 0.2 L PT INR POC ABG pH POC ABG pCO2 POC ABG pO2 Sodium Potassium Chloride 110.0 H Carbon Dioxide 18 L BUN Creatinine 0.3 L Glucose 115 H POC Glucose Lactic Acid Calcium Phosphorus Troponin T C-Reactive Protein NT-Pro-B Natriuret Pep Total Protein Albumin Triglycerides HDL Cholesterol Urine WBC (Auto) Crossmatch 02/16/19 02/16/19 02/16/19 15:30 15:58 15:58 WBC RBC Hgb Hct MCH MCHC RDW Plt Count [place] % (Auto) Lymph # Seg Neutrophils % Seg Neuts % (Manual) Lymphocytes % (Manual) Seg Neutrophils # Man Lymphocytes # (Manual) PT INR POC ABG pH 7.462 H POC ABG pCO2 POC ABG pO2 Sodium Potassium Chloride Carbon Dioxide BUN Creatinine Glucose POC Glucose Lactic Acid 2.20 H* Calcium Phosphorus Troponin T C-Reactive Protein 2.20 H NT-Pro-B Natriuret Pep Total Protein Albumin Triglycerides HDL Cholesterol Urine WBC (Auto) Crossmatch 02/16/19 02/17/19 02/17/19 18:01 04:56 04:56 WBC 28.9 H RBC 3.52 L Hgb 9.9 L Hct MCH MCHC RDW 19.8 H Plt Count [place] % (Auto) Lymph # Seg Neutrophils % Seg Neuts % (Manual) 91.0 H Lymphocytes % (Manual) 0.5 L Seg Neutrophils # Man 26.3 H Lymphocytes # (Manual) 0.1 L PT INR POC ABG pH POC ABG pCO2 POC ABG pO2 Sodium 132 L Potassium Chloride Carbon Dioxide 17 L BUN Creatinine 0.3 L Glucose 125 H POC Glucose Lactic Acid 2.80 H* Calcium Phosphorus Troponin T C-Reactive Protein NT-Pro-B Natriuret Pep Total Protein Albumin Triglycerides HDL Cholesterol Urine WBC (Auto) Crossmatch 02/17/19 02/17/19 02/17/19 04:56 07:56 09:06 WBC RBC Hgb Hct MCH MCHC RDW Plt Count [place] % (Auto) Lymph # Seg Neutrophils % Seg Neuts % (Manual) Lymphocytes % (Manual) Seg Neutrophils # Man Lymphocytes # (Manual) PT INR POC ABG pH POC ABG pCO2 POC ABG pO2 Sodium Potassium Chloride Carbon Dioxide BUN Creatinine Glucose POC Glucose Lactic Acid 2.10 H* 2.40 H* 2.20 H* Calcium Phosphorus Troponin T C-Reactive Protein NT-Pro-B Natriuret Pep Total Protein Albumin Triglycerides HDL Cholesterol Urine WBC (Auto) Crossmatch 02/17/19 02/18/19 02/18/19 10:22 05:17 05:17 WBC 29.6 H RBC 3.07 L Hgb 8.5 L Hct 27.4 L MCH MCHC RDW 20.7 H Plt Count [place] % (Auto) Lymph # Seg Neutrophils % Seg Neuts % (Manual) 99.0 H Lymphocytes % (Manual) 0 L Seg Neutrophils # Man 29.3 H Lymphocytes # (Manual) 0.0 L PT INR POC ABG pH POC ABG pCO2 POC ABG pO2 Sodium 136 L Potassium Chloride 108.5 H Carbon Dioxide 16 L BUN Creatinine 0.2 L Glucose 230 H POC Glucose Lactic Acid 2.40 H* Calcium Phosphorus Troponin T C-Reactive Protein NT-Pro-B Natriuret Pep Total Protein Albumin Triglycerides HDL Cholesterol Urine WBC (Auto) Crossmatch 02/18/19 02/18/19 02/18/19 05:17 07:41 09:00 WBC RBC Hgb Hct MCH MCHC RDW Plt Count [place] % (Auto) Lymph # Seg Neutrophils % Seg Neuts % (Manual) Lymphocytes % (Manual) Seg Neutrophils # Man Lymphocytes # (Manual) PT INR POC ABG pH POC ABG pCO2 POC ABG pO2 Sodium Potassium Chloride Carbon Dioxide BUN Creatinine Glucose POC Glucose Lactic Acid 2.60 H* 2.20 H* 2.50 H* Calcium Phosphorus Troponin T C-Reactive Protein NT-Pro-B Natriuret Pep Total Protein Albumin Triglycerides HDL Cholesterol Urine WBC (Auto) Crossmatch 02/18/19 02/18/19 12:18 14:53 WBC RBC Hgb Hct MCH MCHC RDW Plt Count [place] % (Auto) Lymph # Seg Neutrophils % Seg Neuts % (Manual) Lymphocytes % (Manual) Seg Neutrophils # Man Lymphocytes # (Manual) PT INR POC ABG pH POC ABG pCO2 POC ABG pO2 Sodium Potassium Chloride Carbon Dioxide BUN Creatinine Glucose POC Glucose Lactic Acid 2.50 H* 2.20 H* Calcium Phosphorus Troponin T C-Reactive Protein NT-Pro-B Natriuret Pep Total Protein Albumin Triglycerides HDL Cholesterol Urine WBC (Auto) Crossmatch Allied health notes reviewed: nursing
--- NOTE | 2019-02-19 15:03 | Progress Note ---
Assessment and Plan Cultures: 02/03/2019 blood culture: No growth 02/07/2019 tracheal aspirate: No growth 02/10/2019 blood culture: No growth A/P: 68-year-old female with a prolonged hospitalization since 02/03/2019. She has CHF, COPD and was admitted to the hospital with altered mental status, respiratory distress. CT abdomen and pelvis revealed possible bowel obstruction with volvulus. On 02/11/2019, she underwent an expiratory laparotomy and right hemicolectomy. Now with: 1) Persistent leukocytosis with elevated lactate: new sepsis. Source likely bilateral pneumonia. Intra-abdominal abscess ruled out by CT 02/17/2019. Of note, patient also on steroids. No indwelling central line or Sadler catheter present. 2) Bilateral pneumonia, HCAP with acute respiratory failure: Improving. 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 Surgical incision continues to heal well. Patient is on tube feeds with advancing diet. 4) Acute encephalopathy: metabolic, possibly septic. improving. 5) GI bleed: stable, GI signed off Recs: Continue IV cefepime and vancomycin, target trough: 10-20 mcg/ml, Day 3 MRSA nasal PCR ordered, if negative, plan to d/c Vancomycin CBC, CMP ordered for AM Erickson Restrepo MD [facility] C: [phone] O: [phone] F: [phone] Subjective Date of service: 02/19/19 Principal diagnosis: Ac hypoxemic Resp failure; Severe Anemia; AE-COPD; G.I. B leed; Septic Shock Interval history: No fever. More awake, answering basic questions. On nasal cannula O2. Tolerating TF. Objective - Exam Narrative Exam: Physical Exam: Constitutional: awake, alert, no distress Head, Ears, Nose: Normocephalic, atraumatic. External ears, nose normal. Feeding tube + Eyes: Conjunctivae/corneas clear. No icterus. No ptosis. Neck: Supple, no meningeal signs Oral: unable to examine Cardiovascular: S1, S2 normal. Respiratory: coarse sounds bilaterally GI: Soft, non-tender; bowel sounds normal. No peritoneal signs. Incision c/d/i Musculoskeletal: No pedal edema, no cyanosis. Skin: No rash or abscess Hem/Lymphatic: No palpable cervical or supraclavicular nodes. No lymphangitis Psych: calm, no agitation Neurological: awake, alert, answering basic questions. - Constitutional Vitals: Vital Signs Temp Pulse Resp BP Pulse Ox 97.2 F L 108 H 28 H 131/79 97 02/19/19 08:00 02/19/19 10:00 02/19/19 10:00 02/19/19 10:00 02/19/19 10:00 Temperature -Last 24 Hours Temperature 97.2 F Temperature 98.6 F Temperature 98.6 F Temperature 97.7 F Temperature 98.1 F - Labs CBC & Chem 7: 02/18/19 05:17 02/18/19 05:17 Labs: Abnormal lab results 02/18/19 Range/Units 14:53 Lactic Acid 2.20 H* (0.7-2.0) mmol/L
--- NOTE | 2019-02-19 16:13 | Progress Note ---
Assessment and Plan Assessment and plan: Patient is 68 yo female with PMHx of CHF, COPD, who was brought to the ER by EMS after a fall at home, altered mental status, respiratory distress. Per EMS patient was found in severe respiratory distress, laying on the floor and covered in her feces. According to EMS the had asked a neighbor to call EMS because the patient fell on the floor and he was unable to pick her up. He states that she had been sick for a few days, she had trouble breathing, and he had been taking a lot of "goody powder" for pain. On arrival to the ER patient was lethargic, responded to name, her blood pressure was 80/54, the temperature was 97.1, respiration was 40 BPM, she had h&h of 1.9/7.1, GI was consulted and she was admitted for acute GI bleed, acute blood loss anemia, CHF (BNP was 9100) and COPD exacerbation. respiratory failure worsened, so was intubated. She was seen by GI Physician, put on Protonix iv, but EGD not done because unstable. Patient with vomiting vomiting and CT revealed poss bowel obstruction, surg consulted and evaluated her. 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 Patient was extubated on 02/04/19. Patient has some improvement and has been started on pured diet with thin liquids as per speech therapy recommendations. Dobbhoff was inserted to supplement nutrition with TF Physical therapy evaluated the patient and suggested subacute rehabilitation. Sepsis, recurrent. Worsening leukocytosis with elevated lactate: Concerning for new sepsis. Source could be bilateral pneumonia versus occult intra-abdominal abscess versus reactive. Acute hypoxemic respiratory failure. Patient with with acute respiratory failure. Off mech vent, BiPAP prn. Bilateral pneumonia, HCAP. ID following and recommended empiric cefepime and vancomycin. GI bleed/melena. Patient with melena yesterday morning. No hematemesis, hematochezia or further signs of bleeding. ? Ulcer give a history of NSAID use. Patient unable to undergo EGD due to instability/comorbidities. GI following. Bleeding scan vs CTA if overt bleeding develops. Continue PPI and supportive care. -continue PPI and supportive care Cecal volvulus and large Bowel obstruction. S/p exploratory laparotomy and right hemicolectomy. Followed by Gen. Surgery. Pureed diet with thin liquids as per speech therapy. Will need protein supplements once she is tolerating diet. Continue dobhoff to supplement nutrition with TF. Acute chronic obstructive pulmonary disease exacerbation. Continue steroid taper. Bronchodilators and nebulizer treatment. Pulmonary following. Acute systolic congestive heart failure exacerbation(EF 20-25%). Strict intake and output monitoring Hypokalemia, resolved Elevated serum troponin. Etiology likely secondary to #1. ? Type II RI. Adult failure to thrive and cachexia. PT/OT recommended subacute rehabilitation. Speech found no evidence of aspiration. Dysphagia diet with pured and thin liquids. Also, supplement with TF at goal. Thrombocytopenia Continuing to trend platelet counts. Disposition. Rehab placement when stable I discussed with patient and at bedside. History Interval history: Extubated, Now on BIPAP Hospitalist Physical - Physical exam Narrative exam: Gen: Ill looking, malnourished, BIPAP mask on HEENT: Normocephalic, atraumatic Neck: supple, no JVD Heart: S1 and S2 reg, no murmurs, rubs or gallop Lungs: Clear, no crackles, no wheeze Abd: soft, non tender incision c/d/i, bowel sounds present Ext: No edema, no clubbing, no cyanosis, Neuro: Lethargic, - Constitutional Vitals: Temp Pulse Resp BP Pulse Ox 97.2 F L 108 H 28 H 131/79 97 02/19/19 08:00 02/19/19 10:00 02/19/19 10:00 02/19/19 10:00 02/19/19 10:00 General appearance: Present: no acute distress, cachectic Results - Labs CBC & Chem 7: 02/18/19 05:17 02/18/19 05:17 Labs: Laboratory Last Values WBC 29.6 K/mm3 (4.5-11.0) H 02/18/19 05:17 RBC 3.07 M/mm3 (3.65-5.03) L 02/18/19 05:17 Hgb 8.5 gm/dl (10.1-14.3) L 02/18/19 05:17 Hct 27.4 % (30.3-42.9) L 02/18/19 05:17 MCV 89 fl (79-97) 02/18/19 05:17 MCH 28 pg (28-32) 02/18/19 05:17 MCHC 31 % (30-34) 02/18/19 05:17 RDW 20.7 % (13.2-15.2) H 02/18/19 05:17 Plt Count 367 K/mm3 (140-440) 02/18/19 05:17 Lymph % (Auto) 17.6 % (13.4-35.0) 02/03/19 18:06 [place] % (Auto) 10.1 % (0.0-7.3) H 02/03/19 18:06 Eos % (Auto) 0.1 % (0.0-4.3) 02/03/19 18:06 Baso % (Auto) 1.0 % (0.0-1.8) 02/03/19 18:06 Lymph # 1.1 K/mm3 (1.2-5.4) L 02/03/19 18:06 [place] # 0.6 K/mm3 (0.0-0.8) 02/03/19 18:06 Eos # 0.0 K/mm3 (0.0-0.4) 02/03/19 18:06 Baso # 0.1 K/mm3 (0.0-0.1) 02/03/19 18:06 Add Manual Diff Complete 02/18/19 05:17 Total Counted 100 02/18/19 05:17 Seg Neutrophils % Light Fixture Servicer 02/18/19 05:17 Seg Neuts % (Manual) 99.0 % (40.0-70.0) H 02/18/19 05:17 0 % 02/18/19 05:17 0 % (13.4-35.0) L 02/18/19 05:17 Reactive Lymphs % (Man) 0 % 02/18/19 05:17 1.0 % (0.0-7.3) 02/18/19 05:17 0 % (0.0-4.3) 02/18/19 05:17 0 % (0.0-1.8) 02/18/19 05:17 0 % 02/18/19 05:17 0 % 02/18/19 05:17 0 % 02/18/19 05:17 0 % 02/18/19 05:17 Nucleated RBC % Not Reportable 02/18/19 05:17 Seg Neutrophils # 4.5 K/mm3 (1.8-7.7) 02/03/19 18:06 Seg Neutrophils # Man 29.3 K/mm3 (1.8-7.7) H 02/18/19 05:17 Band Neutrophils # 0.0 K/mm3 02/18/19 05:17 0.0 K/mm3 (1.2-5.4) L 02/18/19 05:17 Abs React Lymphs (Man) 0.0 K/mm3 02/18/19 05:17 0.3 K/mm3 (0.0-0.8) 02/18/19 05:17 0.0 K/mm3 (0.0-0.4) 02/18/19 05:17 0.0 K/mm3 (0.0-0.1) 02/18/19 05:17 0.0 K/mm3 02/18/19 05:17 0.0 K/mm3 02/18/19 05:17 0.0 K/mm3 02/18/19 05:17 Blast Cells # 0.0 K/mm3 02/18/19 05:17 Pathologist Review TNR 02/16/19 04:47 WBC Morphology Not Reportable 02/18/19 05:17 Hypersegmented Neuts Not Reportable 02/18/19 05:17 Hyposegmented Neuts Not Reportable 02/18/19 05:17 Hypogranular Neuts Not Reportable 02/18/19 05:17 Not Reportable 02/18/19 05:17 Not Reportable 02/18/19 05:17 Not Reportable 02/18/19 05:17 Not Reportable 02/18/19 05:17 Not Reportable 02/18/19 05:17 Not Reportable 02/18/19 05:17 Consistent w auto 02/18/19 05:17 Not Reportable 02/18/19 05:17 Plt Clumps, EDTA Not Reportable 02/18/19 05:17 Not Reportable 02/18/19 05:17 Not Reportable 02/18/19 05:17 Not Reportable 02/18/19 05:17 Plt Morphology Comment Not Reportable 02/18/19 05:17 RBC Morphology Not Reportable 02/18/19 05:17 Dimorphic RBCs Not Reportable 02/18/19 05:17 Not Reportable 02/18/19 05:17 Not Reportable 02/18/19 05:17 Not Reportable 02/18/19 05:17 1+ 02/18/19 05:17 Not Reportable 02/18/19 05:17 Not Reportable 02/18/19 05:17 Not Reportable 02/18/19 05:17 Not Reportable 02/18/19 05:17 Not Reportable 02/18/19 05:17 Not Reportable 02/18/19 05:17 Not Reportable 02/18/19 05:17 Not Reportable 02/18/19 05:17 Not Reportable 02/18/19 05:17 Not Reportable 02/18/19 05:17 Not Reportable 02/18/19 05:17 Not Reportable 02/18/19 05:17 Not Reportable 02/18/19 05:17 Not Reportable 02/18/19 05:17 Not Reportable 02/18/19 05:17 Acanthocytes (Spur) Not Reportable 02/18/19 05:17 Rouleaux Not Reportable 02/18/19 05:17 Not Reportable 02/18/19 05:17 Not Reportable 02/18/19 05:17 Not Reportable 02/18/19 05:17 Not Reportable 02/18/19 05:17 Hem Pathologist Commnt No 02/18/19 05:17 PT 19.3 Sec. (12.2-14.9) H 02/03/19 19:24 INR 1.52 (0.87-1.13) H 02/03/19 19:24 APTT 30.3 Sec. (24.2-36.6) 02/03/19 19:24 POC ABG pH 7.462 (7.35-7.45) H 02/16/19 15:30 POC ABG pCO2 33.5 (35-45) L 02/12/19 05:44 POC ABG pO2 118 (80-105) H 02/12/19 05:44 POC ABG HCO3 14.6 (22-26 mml/L) 02/16/19 15:30 POC ABG Total CO2 15 (23-27mmol/L) 02/16/19 15:30 POC ABG O2 Sat 86 02/16/19 15:30 POC ABG Base Excess -9 ((-2) - (+3)mmol/L) 02/16/19 15:30 50 % 02/16/19 15:30 Sodium 136 mmol/L (137-145) L 02/18/19 05:17 Potassium 4.1 mmol/L (3.6-5.0) 02/18/19 05:17 Chloride 108.5 mmol/L (98-107) H 02/18/19 05:17 Carbon Dioxide 16 mmol/L (22-30) L 02/18/19 05:17 16 mmol/L 02/18/19 05:17 BUN 12 mg/dL (7-17) 02/18/19 05:17 0.2 mg/dL (0.7-1.2) L 02/18/19 05:17 Estimated GFR > 60 ml/min 02/18/19 05:17 60 % 02/18/19 05:17 Glucose 230 mg/dL (65-100) H 02/18/19 05:17 POC Glucose 147 (70-105) H 02/12/19 11:54 Lactic Acid 2.20 mmol/L (0.7-2.0) H* 02/18/19 14:53 Calcium 9.3 mg/dL (8.4-10.2) 02/18/19 05:17 Phosphorus 3.10 mg/dL (2.5-4.5) 02/13/19 04:33 Magnesium 1.90 mg/dL (1.7-2.3) 02/13/19 04:33 0.30 mg/dL (0.1-1.2) 02/03/19 18:08 AST 35 units/L (5-40) 02/03/19 18:08 ALT 27 units/L (7-56) 02/03/19 18:08 117 units/L (35-129) 02/03/19 18:08 0.058 ng/mL (0.00-0.029) H D 02/08/19 18:52 2.20 mg/dL (0.00-1.30) H 02/16/19 15:58 NT-Pro-B Natriuret Pep 9160 pg/mL (0-900) H 02/03/19 18:06 5.1 g/dL (6.3-8.2) L 02/03/19 18:08 2.8 g/dL (3.9-5) L 02/03/19 18:08 1.2 % 02/03/19 18:08 Triglycerides 164 mg/dL (2-149) H 02/03/19 18:08 Cholesterol 125 mg/dL (50-199) 02/03/19 18:08 75 mg/dL (50-130) 02/03/19 18:08 31 mg/dL (40-59) L 02/03/19 18:08 4.03 % 02/03/19 18:08 Yellow (Yellow) 02/03/19 02:57 Clear (Clear) 02/03/19 02:57 6.0 (5.0-7.0) 02/03/19 02:57 Ur Specific [place] 1.011 (1.003-1.030) 02/03/19 02:57 <15 mg/dl mg/dL (Negative) 02/03/19 02:57 Neg mg/dL (Negative) 02/03/19 02:57 Neg mg/dL (Negative) 02/03/19 02:57 Neg (Negative) 02/03/19 02:57 Neg (Negative) 02/03/19 02:57 Neg (Negative) 02/03/19 02:57 < 2.0 mg/dL (<2.0) 02/03/19 02:57 Ur Leukocyte Esterase Neg (Negative) 02/03/19 02:57 7.0 /HPF (0.0-6.0) H 02/03/19 02:57 8.0 /HPF (0.0-6.0) 02/03/19 02:57 U Epithel Cells (Auto) 1.0 /HPF (0-13.0) 02/03/19 02:57 2+ /HPF (Negative) 02/03/19 02:57 Hyaline Casts 22 /LPF 02/03/19 02:57 3+ /HPF 02/03/19 02:57 Blood Type A POSITIVE 02/03/19 18:06 Antibody Screen Negative 02/03/19 18:06 Crossmatch See Detail 02/03/19 18:06 Active Medications - Current Medications Current Medications: Generic Name Dose Route Start Last Admin Trade Name Freq PRN Reason Stop Dose Admin Albuterol/Ipratropium 1 ampul 02/04/19 02:00 02/19/19 13:58 Duoneb *Not For Prn Use* IH Not Given Q6HRT JOEL Lipase/Protease/Amylase 1 each 02/08/19 16:37 Juan Smith 10,500 Unit FEEDTUBE PRN PRN For Clogged Feeding Tube Arformoterol Tartrate 15 mcg 02/04/19 14:15 02/19/19 11:00 Brovana Nebu IH 15 mcg Q12HRT JOEL Administration Budesonide 0.5 mg 02/04/19 20:00 02/19/19 11:00 Pulmicort IH 0.5 mg Q12HRT JOEL Administration Enoxaparin Sodium 30 mg 02/14/19 14:00 02/19/19 09:56 Lovenox SUB-Q 30 mg DAILY JOEL Administration Hydrophilic Ointment 1 applic 02/06/19 10:50 Vaseline Lip Therapy TP Q2HR PRN Dry Lips Cefepime HCl 1 gm in 100 mls @ 200 mls/hr 02/17/19 10:00 02/19/19 09:56 Maxipime/Ns 1 Gm/100 Ml IV 200 mls/hr Q12HR JOEL Administration Protocol Vancomycin HCl 750 mg/ Sodium 265 mls @ 176.667 mls/hr 02/17/19 10:00 02/17/19 11:00 Chloride IV 176.667 mls/hr Q24H JOEL Administration Lansoprazole 30 mg 02/18/19 10:00 02/19/19 09:56 Prevacid Solutab FEEDTUBE 30 mg QDAY JOEL Administration Methylprednisolone Sodium Succinate 60 mg 02/16/19 18:00 02/19/19 09:55 Solu-Medrol IV 60 mg Q8H JOEL Administration Morphine Sulfate 1 mg 02/12/19 14:00 02/16/19 09:54 Morphine IV 1 mg Q4H PRN Administration Pain , Severe (7-10) Multi-Ingred Cream/Lotion/Oil/Oint 1 applic 02/06/19 10:50 Artificial Tears Ophth Oint OU Q4HR PRN Dry Eye(s) Ondansetron HCl 4 mg 02/03/19 20:27 02/09/19 16:37 Zofran IV 4 mg Q8H PRN Administration Nausea And Vomiting Simple Syrup 15 ml 02/08/19 16:37 Simple Syrup FEEDTUBE PRN PRN Hypoglycemia Simple Syrup 30 ml 02/08/19 16:37 Simple Syrup FEEDTUBE PRN PRN Hypoglycemia Sodium Bicarbonate 325 mg 02/08/19 16:37 Sodium Bicarbonate FEEDTUBE PRN PRN For Clogged Feeding Tube Sodium Chloride 10 ml 02/03/19 22:00 02/19/19 09:57 Sodium Chloride Flush Syringe 10 Ml IV 10 ml BID JOEL Administration Sodium Chloride 10 ml 02/03/19 20:27 Sodium Chloride Flush Syringe 10 Ml IV PRN PRN LINE FLUSH Tramadol HCl 25 mg 02/15/19 11:13 02/15/19 18:29 Ultram FEEDTUBE 25 mg Q4H PRN Administration Pain, Moderate (4-6) Nutrition/Malnutrition Assess - Dietary Evaluation Nutrition/Malnutrition Findings: Nutrition Notes Start: 02/04/19 14:37 Freq: Status: Active Protocol: Document 02/18/19 13:15 LP (Rec: 02/18/19 13:18 LP [id number]) Nutrition Notes Initial or Follow up Reassessment Current Diagnosis Heart Failure,Respiratory Failure Other Pertinent Diagnosis AMS Current Diet Glucerna 1.2 at 45ml/hr Labs/Tests Reviewed Pertinent Medications Reviewed Height 5 ft 3 in Weight 37 kg [place] Body Weight (kg) 52.27 BMI 14.4 Subjective/Other Information Pt tolerating TF at 45m/hr. Percent of energy/protein needs met: 84%/100% Burn Absent Trauma Absent #1 Nutrition Diagnosis Inadequate oral intake Diagnosis Progress(for reassessment Continues documentation) Is patient on ventilator? No Is Patient Ambulatory and/or Out of Bed No REE-([facility]-confined to bed) 1037.232 Kcal/Kg value to use for calculation 40 Approximate Energy Requirements Using 1480 kcal/Kg Calculation Used for Recommendations Kcal/kg Additional Notes Pro needs 1.2-2g/k-72g/ day Fluid needs 1ml/kcal Nutrition Intervention Change Diet Order: TF Nutrition Support: Glucerna 1.2 at 45ml/hr. Flush with 100ml q4h Kcal 1,296 Protein (gm) 65 Fluid (mL) 869 Goal #1 Meet at least 80% of kcal and protein needs Anticipated Discharge Needs: Unable to determine at this time Follow-Up By: 02/22/19 Additional Comments Follow for stable TF tolerance , Need to increase TF rate?
[2019-02-19] MEDS: ULTRAM FEEDTUBE PRN (22:34)
[2019-02-20] MEDS: DUONEB *Not for PRN Use IH SCH ×4 (02:05→19:28)
[2019-02-20] MEDS: SOLU-Medrol IV SCH ×4 (02:54→20:53)
[2019-02-20 05:18] LABS: Hematocrit 24.4 % (30.3-42.9); Mean Corpuscular HGB Conc 33 % (30-34); Mean Corpuscular Volume 86 fl (79-97); Platelet Count 378 K/mm3 (140-440); Red Blood Count 2.82 M/mm3 (3.65-5.03)
[2019-02-20 05:27] LABS: Red Cell Distribution Width 20.6 % (13.2-15.2)
[2019-02-20 05:41] LABS: Alanine Aminotransferase 24 units/L (7-56); Albumin 2.2 g/dL (3.9-5); BUN/Creatinine Ratio 63; Blood Urea Nitrogen 19 mg/dL (7-17); Calcium 9.5 mg/dL (8.4-10.2); Hemolysis Index 0
[2019-02-20] MEDS: PULMICORT IH SCH ×2 (07:45→19:27)
[2019-02-20] MEDS: BROVANA NEBU IH SCH ×2 (07:45→19:27)
--- NOTE | 2019-02-20 08:35 | Progress Note ---
Assessment and Plan Assessment and plan: Patient is 68 yo female with PMHx of CHF, COPD, who was brought to the ER by EMS after a fall at home, altered mental status, respiratory distress. Per EMS patient was found in severe respiratory distress, laying on the floor and covered in her feces. According to EMS the had asked a neighbor to call EMS because the patient fell on the floor and he was unable to pick her up. He states that she had been sick for a few days, she had trouble breathing, and he had been taking a lot of "goody powder" for pain. On arrival to the ER patient was lethargic, responded to name, her blood pressure was 80/54, the temperature was 97.1, respiration was 40 BPM, she had h&h of 1.9/7.1, GI was consulted and she was admitted for acute GI bleed, acute blood loss anemia, CHF (BNP was 9100) and COPD exacerbation. respiratory failure worsened, so was intubated. She was seen by GI Physician, put on Protonix iv, but EGD not done because unstable. Patient with vomiting vomiting and CT revealed poss bowel obstruction, surg consulted and evaluated her. 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 Patient was extubated on 02/04/19. Patient has some improvement and has been started on pured diet with thin liquids as per speech therapy recommendations. Dobbhoff was inserted to supplement nutrition with TF Physical therapy evaluated the patient and suggested subacute rehabilitation. Sepsis, recurrent. Worsening leukocytosis with elevated lactate: Concerning for new sepsis. Source could be bilateral pneumonia versus occult intra-abdominal abscess versus reactive. Acute hypoxemic respiratory failure. Patient with with acute respiratory failure. Off mech vent, BiPAP prn. Bilateral pneumonia, HCAP. ID following and recommended empiric cefepime and vancomycin. GI bleed/melena. Patient with melena yesterday morning. No hematemesis, hematochezia or further signs of bleeding. ? Ulcer give a history of NSAID use. Patient unable to undergo EGD due to instability/comorbidities. GI following. Bleeding scan vs CTA if overt bleeding develops. Continue PPI and supportive care. -continue PPI and supportive care Cecal volvulus and large Bowel obstruction. S/p exploratory laparotomy and right hemicolectomy. Followed by Gen. Surgery. Pureed diet with thin liquids as per speech therapy. Will need protein supplements once she is tolerating diet. Continue dobhoff to supplement nutrition with TF. Acute chronic obstructive pulmonary disease exacerbation. Continue steroid taper. Bronchodilators and nebulizer treatment. Pulmonary following. Acute systolic congestive heart failure exacerbation(EF 20-25%). Strict intake and output monitoring Hypokalemia, resolved Elevated serum troponin. Etiology likely secondary to #1. ? Type II MS. Adult failure to thrive and cachexia. PT/OT recommended subacute rehabilitation. Speech found no evidence of aspiration. Dysphagia diet with pured and thin liquids. Also, supplement with TF at goal. Thrombocytopenia Continuing to trend platelet counts. Disposition. Rehab placement when stable I discussed with patient and at bedside. History Interval history: Extubated, Now on Oxygen by [place] BIPAP prn Hospitalist Physical - Physical exam Narrative exam: Gen: Ill looking, malnourished, Oxygen by [place] HEENT: Normocephalic, atraumatic Neck: supple, no JVD Heart: S1 and S2 reg, no murmurs, rubs or gallop Lungs: Clear, no crackles, no wheeze Abd: soft, non tender incision c/d/i, bowel sounds present Ext: No edema, no clubbing, no cyanosis, Neuro: Lethargic,moves all ext - Constitutional Vitals: Temp Pulse Resp BP Pulse Ox 99.1 F 91 H 20 139/80 99 02/20/19 04:00 02/20/19 08:02 02/20/19 08:02 02/20/19 06:00 02/20/19 07:47 General appearance: Present: no acute distress, cachectic Results - Labs CBC & Chem 7: 02/20/19 04:51 02/20/19 04:51 Labs: Laboratory Last Values WBC 23.2 K/mm3 (4.5-11.0) H 02/20/19 04:51 RBC 2.82 M/mm3 (3.65-5.03) L 02/20/19 04:51 Hgb 8.0 gm/dl (10.1-14.3) L 02/20/19 04:51 Hct 24.4 % (30.3-42.9) L 02/20/19 04:51 MCV 86 fl (79-97) 02/20/19 04:51 MCH 28 pg (28-32) 02/20/19 04:51 MCHC 33 % (30-34) 02/20/19 04:51 RDW 20.6 % (13.2-15.2) H 02/20/19 04:51 Plt Count 378 K/mm3 (140-440) 02/20/19 04:51 Lymph % (Auto) 17.6 % (13.4-35.0) 02/03/19 18:06 [place] % (Auto) 10.1 % (0.0-7.3) H 02/03/19 18:06 Eos % (Auto) 0.1 % (0.0-4.3) 02/03/19 18:06 Baso % (Auto) 1.0 % (0.0-1.8) 02/03/19 18:06 Lymph # 1.1 K/mm3 (1.2-5.4) L 02/03/19 18:06 [place] # 0.6 K/mm3 (0.0-0.8) 02/03/19 18:06 Eos # 0.0 K/mm3 (0.0-0.4) 02/03/19 18:06 Baso # 0.1 K/mm3 (0.0-0.1) 02/03/19 18:06 Add Manual Diff Complete 02/18/19 05:17 Total Counted 100 02/18/19 05:17 Seg Neutrophils % Sash Assembler 02/18/19 05:17 Seg Neuts % (Manual) 99.0 % (40.0-70.0) H 02/18/19 05:17 0 % 02/18/19 05:17 0 % (13.4-35.0) L 02/18/19 05:17 Reactive Lymphs % (Man) 0 % 02/18/19 05:17 1.0 % (0.0-7.3) 02/18/19 05:17 0 % (0.0-4.3) 02/18/19 05:17 0 % (0.0-1.8) 02/18/19 05:17 0 % 02/18/19 05:17 0 % 02/18/19 05:17 0 % 02/18/19 05:17 0 % 02/18/19 05:17 Nucleated RBC % Not Reportable 02/18/19 05:17 Seg Neutrophils # 4.5 K/mm3 (1.8-7.7) 02/03/19 18:06 Seg Neutrophils # Man 29.3 K/mm3 (1.8-7.7) H 02/18/19 05:17 Band Neutrophils # 0.0 K/mm3 02/18/19 05:17 0.0 K/mm3 (1.2-5.4) L 02/18/19 05:17 Abs React Lymphs (Man) 0.0 K/mm3 02/18/19 05:17 0.3 K/mm3 (0.0-0.8) 02/18/19 05:17 0.0 K/mm3 (0.0-0.4) 02/18/19 05:17 0.0 K/mm3 (0.0-0.1) 02/18/19 05:17 0.0 K/mm3 02/18/19 05:17 0.0 K/mm3 02/18/19 05:17 0.0 K/mm3 02/18/19 05:17 Blast Cells # 0.0 K/mm3 02/18/19 05:17 Pathologist Review TNR 02/16/19 04:47 WBC Morphology Not Reportable 02/18/19 05:17 Hypersegmented Neuts Not Reportable 02/18/19 05:17 Hyposegmented Neuts Not Reportable 02/18/19 05:17 Hypogranular Neuts Not Reportable 02/18/19 05:17 Not Reportable 02/18/19 05:17 Not Reportable 02/18/19 05:17 Not Reportable 02/18/19 05:17 Not Reportable 02/18/19 05:17 Not Reportable 02/18/19 05:17 Not Reportable 02/18/19 05:17 Consistent w auto 02/18/19 05:17 Not Reportable 02/18/19 05:17 Plt Clumps, EDTA Not Reportable 02/18/19 05:17 Not Reportable 02/18/19 05:17 Not Reportable 02/18/19 05:17 Not Reportable 02/18/19 05:17 Plt Morphology Comment Not Reportable 02/18/19 05:17 RBC Morphology Not Reportable 02/18/19 05:17 Dimorphic RBCs Not Reportable 02/18/19 05:17 Not Reportable 02/18/19 05:17 Not Reportable 02/18/19 05:17 Not Reportable 02/18/19 05:17 1+ 02/18/19 05:17 Not Reportable 02/18/19 05:17 Not Reportable 02/18/19 05:17 Not Reportable 02/18/19 05:17 Not Reportable 02/18/19 05:17 Not Reportable 02/18/19 05:17 Not Reportable 02/18/19 05:17 Not Reportable 02/18/19 05:17 Not Reportable 02/18/19 05:17 Not Reportable 02/18/19 05:17 Not Reportable 02/18/19 05:17 Not Reportable 02/18/19 05:17 Not Reportable 02/18/19 05:17 Not Reportable 02/18/19 05:17 Not Reportable 02/18/19 05:17 Not Reportable 02/18/19 05:17 Acanthocytes (Spur) Not Reportable 02/18/19 05:17 Rouleaux Not Reportable 02/18/19 05:17 Not Reportable 02/18/19 05:17 Not Reportable 02/18/19 05:17 Not Reportable 02/18/19 05:17 Not Reportable 02/18/19 05:17 Hem Pathologist Commnt No 02/18/19 05:17 PT 19.3 Sec. (12.2-14.9) H 02/03/19 19:24 INR 1.52 (0.87-1.13) H 02/03/19 19:24 APTT 30.3 Sec. (24.2-36.6) 02/03/19 19:24 POC ABG pH 7.462 (7.35-7.45) H 02/16/19 15:30 POC ABG pCO2 33.5 (35-45) L 02/12/19 05:44 POC ABG pO2 118 (80-105) H 02/12/19 05:44 POC ABG HCO3 14.6 (22-26 mml/L) 02/16/19 15:30 POC ABG Total CO2 15 (23-27mmol/L) 02/16/19 15:30 POC ABG O2 Sat 86 02/16/19 15:30 POC ABG Base Excess -9 ((-2) - (+3)mmol/L) 02/16/19 15:30 50 % 02/16/19 15:30 Sodium 136 mmol/L (137-145) L 02/20/19 04:51 Potassium 3.7 mmol/L (3.6-5.0) 02/20/19 04:51 Chloride 106.7 mmol/L (98-107) 02/20/19 04:51 Carbon Dioxide 19 mmol/L (22-30) L 02/20/19 04:51 14 mmol/L 02/20/19 04:51 BUN 19 mg/dL (7-17) H 02/20/19 04:51 0.3 mg/dL (0.7-1.2) L 02/20/19 04:51 Estimated GFR > 60 ml/min 02/20/19 04:51 63 % 02/20/19 04:51 Glucose 91 mg/dL (65-100) 02/20/19 04:51 POC Glucose 147 (70-105) H 02/12/19 11:54 Lactic Acid 2.20 mmol/L (0.7-2.0) H* 02/18/19 14:53 Calcium 9.5 mg/dL (8.4-10.2) 02/20/19 04:51 Phosphorus 3.10 mg/dL (2.5-4.5) 02/13/19 04:33 Magnesium 1.90 mg/dL (1.7-2.3) 02/13/19 04:33 0.30 mg/dL (0.1-1.2) 02/20/19 04:51 AST 20 units/L (5-40) 02/20/19 04:51 ALT 24 units/L (7-56) 02/20/19 04:51 176 units/L (35-129) H 02/20/19 04:51 0.058 ng/mL (0.00-0.029) H D 02/08/19 18:52 2.20 mg/dL (0.00-1.30) H 02/16/19 15:58 NT-Pro-B Natriuret Pep 9160 pg/mL (0-900) H 02/03/19 18:06 4.8 g/dL (6.3-8.2) L 02/20/19 04:51 2.2 g/dL (3.9-5) L 02/20/19 04:51 0.8 % 02/20/19 04:51 Triglycerides 164 mg/dL (2-149) H 02/03/19 18:08 Cholesterol 125 mg/dL (50-199) 02/03/19 18:08 75 mg/dL (50-130) 02/03/19 18:08 31 mg/dL (40-59) L 02/03/19 18:08 4.03 % 02/03/19 18:08 Yellow (Yellow) 02/03/19 02:57 Clear (Clear) 02/03/19 02:57 6.0 (5.0-7.0) 02/03/19 02:57 Ur Specific [place] 1.011 (1.003-1.030) 02/03/19 02:57 <15 mg/dl mg/dL (Negative) 02/03/19 02:57 Neg mg/dL (Negative) 02/03/19 02:57 Neg mg/dL (Negative) 02/03/19 02:57 Neg (Negative) 02/03/19 02:57 Neg (Negative) 02/03/19 02:57 Neg (Negative) 02/03/19 02:57 < 2.0 mg/dL (<2.0) 02/03/19 02:57 Ur Leukocyte Esterase Neg (Negative) 02/03/19 02:57 7.0 /HPF (0.0-6.0) H 02/03/19 02:57 8.0 /HPF (0.0-6.0) 02/03/19 02:57 U Epithel Cells (Auto) 1.0 /HPF (0-13.0) 02/03/19 02:57 2+ /HPF (Negative) 02/03/19 02:57 Hyaline Casts 22 /LPF 02/03/19 02:57 3+ /HPF 02/03/19 02:57 Blood Type A POSITIVE 02/03/19 18:06 Antibody Screen Negative 02/03/19 18:06 Crossmatch See Detail 02/03/19 18:06 Active Medications - Current Medications Current Medications: Generic Name Dose Route Start Last Admin Trade Name Freq PRN Reason Stop Dose Admin Albuterol/Ipratropium 1 ampul 02/04/19 02:00 02/20/19 07:46 Duoneb *Not For Prn Use* IH Not Given Q6HRT [facility] Lipase/Protease/Amylase 1 each 02/08/19 16:37 Juan Smith 10,500 Unit FEEDTUBE PRN PRN For Clogged Feeding Tube Arformoterol Tartrate 15 mcg 02/04/19 14:15 02/20/19 07:45 Brovana Nebu IH 15 mcg Q12HRT JOEL Administration Budesonide 0.5 mg 02/04/19 20:00 02/20/19 07:45 Pulmicort IH 0.5 mg Q12HRT JOEL Administration Enoxaparin Sodium 30 mg 02/14/19 14:00 02/19/19 09:56 Lovenox SUB-Q 30 mg DAILY JOEL Administration Hydrophilic Ointment 1 applic 02/06/19 10:50 Vaseline Lip Therapy TP Q2HR PRN Dry Lips Cefepime HCl 1 gm in 100 mls @ 200 mls/hr 02/17/19 10:00 02/19/19 21:41 Maxipime/Ns 1 Gm/100 Ml IV 200 mls/hr Q12HR JOEL Administration Protocol Vancomycin HCl 750 mg/ Sodium 265 mls @ 176.667 mls/hr 02/17/19 10:00 02/19/19 10:00 Chloride IV 176.667 mls/hr Q24H JOEL Administration Lansoprazole 30 mg 02/18/19 10:00 02/19/19 09:56 Prevacid Solutab FEEDTUBE 30 mg QDAY JOEL Administration Methylprednisolone Sodium Succinate 60 mg 02/16/19 18:00 02/20/19 02:54 Solu-Medrol IV 60 mg Q8H JOEL Administration Morphine Sulfate 1 mg 02/12/19 14:00 02/16/19 09:54 Morphine IV 1 mg Q4H PRN Administration Pain , Severe (7-10) Multi-Ingred Cream/Lotion/Oil/Oint 1 applic 02/06/19 10:50 Artificial Tears Ophth Oint OU Q4HR PRN Dry Eye(s) Ondansetron HCl 4 mg 02/03/19 20:27 02/09/19 16:37 Zofran IV 4 mg Q8H PRN Administration Nausea And Vomiting Simple Syrup 15 ml 02/08/19 16:37 Simple Syrup FEEDTUBE PRN PRN Hypoglycemia Simple Syrup 30 ml 02/08/19 16:37 Simple Syrup FEEDTUBE PRN PRN Hypoglycemia Sodium Bicarbonate 325 mg 02/08/19 16:37 Sodium Bicarbonate FEEDTUBE PRN PRN For Clogged Feeding Tube Sodium Chloride 10 ml 02/03/19 22:00 02/19/19 21:42 Sodium Chloride Flush Syringe 10 Ml IV 10 ml BID JOEL Administration Sodium Chloride 10 ml 02/03/19 20:27 Sodium Chloride Flush Syringe 10 Ml IV PRN PRN LINE FLUSH Tramadol HCl 25 mg 02/15/19 11:13 02/19/19 22:34 Ultram FEEDTUBE 25 mg Q4H PRN Administration Pain, Moderate (4-6) Nutrition/Malnutrition Assess - Dietary Evaluation Nutrition/Malnutrition Findings: Nutrition Notes Start: 02/04/19 14:37 Freq: Status: Active Protocol: Document 02/18/19 13:15 LP (Rec: 02/18/19 13:18 LP [id number]) Nutrition Notes Initial or Follow up Reassessment Current Diagnosis Heart Failure,Respiratory Failure Other Pertinent Diagnosis AMS Current Diet Glucerna 1.2 at 45ml/hr Labs/Tests Reviewed Pertinent Medications Reviewed Height 5 ft 3 in Weight 37 kg [place] Body Weight (kg) 52.27 BMI 14.4 Subjective/Other Information Pt tolerating TF at 45m/hr. Percent of energy/protein needs met: 84%/100% Burn Absent Trauma Absent #1 Nutrition Diagnosis Inadequate oral intake Diagnosis Progress(for reassessment Continues documentation) Is patient on ventilator? No Is Patient Ambulatory and/or Out of Bed No REE-([facility]-confined to bed) 1037.232 Kcal/Kg value to use for calculation 40 Approximate Energy Requirements Using 1480 kcal/Kg Calculation Used for Recommendations Kcal/kg Additional Notes Pro needs 1.2-2g/k-72g/ day Fluid needs 1ml/kcal Nutrition Intervention Change Diet Order: TF Nutrition Support: Glucerna 1.2 at 45ml/hr. Flush with 100ml q4h Kcal 1,296 Protein (gm) 65 Fluid (mL) 869 Goal #1 Meet at least 80% of kcal and protein needs Anticipated Discharge Needs: Unable to determine at this time Follow-Up By: 02/22/19 Additional Comments Follow for stable TF tolerance , Need to increase TF rate?
[2019-02-20] MEDS: MAXIPIME/NS 1 GM/100 ML 1 GM/100 ML BAG IV SCH (09:31)
[2019-02-20] MEDS: VANCOMYCIN 750 MG in NACL 0.9% 250ML 250 ML IV SCH (09:33)
[2019-02-20] MEDS: LOVENOX SUB-Q SCH (09:35)
[2019-02-20] MEDS: SODIUM CHLORIDE FLUSH SYRINGE 10 ML IV SCH (09:36)
[2019-02-20] MEDS: PREVACID SOLUTAB FEEDTUBE SCH (09:36)
--- NOTE | 2019-02-20 10:22 | Progress Note ---
Assessment and Plan Cultures: 02/03/2019 blood culture: No growth 02/07/2019 tracheal aspirate: No growth 02/10/2019 blood culture: No growth A/P: 68-year-old female with a prolonged hospitalization since 02/03/2019. She has CHF, COPD and was admitted to the hospital with altered mental status, respiratory distress. CT abdomen and pelvis revealed possible bowel obstruction with volvulus. On 02/11/2019, she underwent an expiratory laparotomy and right hemicolectomy. Now with: 1) Persistent leukocytosis with elevated lactate: new sepsis. Source likely bilateral pneumonia. Intra-abdominal abscess ruled out by CT 02/17/2019. Of note, patient also on steroids. No indwelling central line or Sadler catheter present. 2) Bilateral pneumonia, HCAP with acute respiratory failure: worsening. Now on BIPAP. Continue to treat with empiric cefepime and vancomycin. 3) Cecal volvulus: Status post exploratory laparotomy and right hemicolectomy. Surgical incision continues to heal well. Patient is on tube feeds with advancing diet. 4) Acute encephalopathy: sudden decompensation with worsening encephalopathy and hypotension. 5) GI bleed: stable, GI signed off Recs: Continue IV cefepime and vancomycin, target trough: 10-20 mcg/ml, D4 MRSA nasal PCR ordered not collected. (if negative, plan to d/c Vancomycin) [facility] M: [phone] O:[phone] Subjective Date of service: 02/20/19 Principal diagnosis: Ac hypoxemic Resp failure; Severe Anemia; AE-COPD; G.I. Bleed; Septic Shock Interval history: Patient seen and examined. Worsening acute respiratory failure, now requiring BIPAP. Mostly unresponsive. at bedside. Objective - Exam Narrative Exam: Constitutional: Respiratory distress. Mostly non-responsive Head, Ears, Nose: Normocephalic, atraumatic. External ears, nose normal. Feeding tube + Eyes: Conjunctivae/corneas clear. No icterus. No ptosis. Neck: Supple, no meningeal signs Oral: unable to examine Cardiovascular: S1, S2 normal. Respiratory: coarse sounds bilaterally, increased WOB on BIPAP GI: Soft, non-tender; bowel sounds normal. No peritoneal signs. Incision c/d/i Musculoskeletal: No pedal edema, no cyanosis. Skin: No rash or abscess Hem/Lymphatic: No palpable cervical or supraclavicular nodes. No lymphangitis Psych: Respiratory distress Neurological: Acute distress, mostly non-responsive - Constitutional Vitals: Vital Signs Temp Pulse Resp BP Pulse Ox 99.1 F 91 H 20 139/80 99 02/20/19 04:00 02/20/19 08:02 02/20/19 08:02 02/20/19 06:00 02/20/19 07:47 Temperature -Last 24 Hours Temperature 99.1 F Temperature 97.8 F Temperature 98.9 F Temperature 98.0 F Temperature 98.2 F Temperature 98.4 F Temperature 97.2 F - Labs CBC & Chem 7: 02/20/19 13:23 02/20/19 13:23 Labs: Abnormal lab results 02/20/19 02/20/19 Range/Units 04:51 04:51 WBC 23.2 H (4.5-11.0) K/mm3 RBC 2.82 L (3.65-5.03) M/mm3 Hgb 8.0 L (10.1-14.3) gm/dl Hct 24.4 L (30.3-42.9) % RDW 20.6 H (13.2-15.2) % Sodium 136 L (137-145) mmol/L Carbon Dioxide 19 L (22-30) mmol/L BUN 19 H (7-17) mg/dL Creatinine 0.3 L (0.7-1.2) mg/dL Alkaline Phosphatase 176 H (35-129) units/L Total Protein 4.8 L (6.3-8.2) g/dL Albumin 2.2 L (3.9-5) g/dL
--- NOTE | 2019-02-20 11:22 | Progress Note ---
Assessment and Plan Patient developed severe respiratory distress. O2 saturation drooped. Using accesory muscles of respiration. Patient placed on BIPAP 18/6, FIO2 50% and O2 saturation came up to 100%. Patient tachycardic. Complaining abdominal pain. Obtaining ABGs and chest xray.Patients ABGs reported PH 7.35, PO2 86, HCO3 9.6, O2 saturation 97%. PCO2 not reported. Patient is in severe metabolic acidosis with respiratory compensation. Patient transfered to ICU.Giving one ampule of BICARB.Chest xray reported increased bronchovascular markings. If the patients condition gets worse, patient need intubation and transfer to ICU.Patient blood pressure running low patient is on Levophed. Patient is on cefepime and vancomycin, I spent critical care time of 60 minutes on this patient, examining the patient, talking to nursing staff, respiratory therapy, starting on non invasive ventilation, ordering the tests, recommend necessary consultatations and recommendation to transfer to ICU. Talk to the patients and explained patients critical condition. - Patient Problems (1) COPD exacerbation Current Visit: Yes Status: Acute Plan to address problem: BIPAP 18/6, rate 18, FIO2 35% Albuterol/atrovent aerosol treatments. Continue I/V Solumedrol Continue cepepime. Continue S/C Lovenox. Continue Prevcid. (2) CHF exacerbation Current Visit: Yes Status: Acute Plan to address problem: management for cardiology (3) Gastrointestinal hemorrhage Current Visit: Yes Status: Acute Plan to address problem: Management as per gastroenterology. (4) Sepsis Current Visit: Yes Status: Acute Plan to address problem: Patient is on cefepime and vancomycyn. (5) Pneumonia Current Visit: Yes Status: Acute Plan to address problem: Patient is on cepepime and vancomycyn. (6) Abdominal pain Current Visit: Yes Status: Acute Plan to address problem: Recommend contact the surgeon. Subjective Date of service: 02/20/19 Principal diagnosis: Ac hypoxemic Resp failure; Severe Anemia; AE-COPD; G.I. Bleed; Septic Shock Interval history: Patient developed severe respiratory distress. O2 saturation drooped. Using accesory muscles of respiration. Patient placed on BIPAP 18/6, FIO2 50% and O2 saturation came up to 100%. Patient tachycardic. Complaining abdominal pain. Obtaining ABGs and chest xray.Patients ABGs reported PH 7.35, PO2 86, HCO3 9.6, O2 saturation 97%. PCO2 not reported. Patient is in severe metabolic acidosis with respiratory compensation. Patient transfered to ICU.Giving one ampule of BICARB.Chest xray reported increased bronchovascular markings.Patient blood pressure running low patient is on Levophed. Patient is on cefepime and vancomycin, Objective Vital Signs - 12hr 02/19/19 02/20/19 02/20/19 23:50 00:00 01:00 Temperature 97.8 F Pulse Rate 111 H 105 H 105 H Pulse Rate [ Bilateral Bases ] Respiratory 31 H 23 20 Rate Respiratory Rate [Bilateral Bases] Blood Pressure 130/70 131/74 129/76 O2 Sat by Pulse 98 93 94 Oximetry 02/20/19 02/20/19 02/20/19 02:00 02:25 03:00 Temperature Pulse Rate 111 H 96 H Pulse Rate [ 100 H 105 H Bilateral Bases ] Respiratory 26 H 19 Rate Respiratory 18 25 H Rate [Bilateral Bases] Blood Pressure 142/82 140/82 O2 Sat by Pulse 95 96 Oximetry 02/20/19 02/20/19 02/20/19 04:00 05:00 06:00 Temperature 99.1 F Pulse Rate 93 H 89 85 Pulse Rate [ Bilateral Bases ] Respiratory 19 20 19 Rate Respiratory Rate [Bilateral Bases] Blood Pressure 137/76 140/77 139/80 O2 Sat by Pulse 94 94 97 Oximetry 02/20/19 02/20/19 02/20/19 07:45 07:47 08:02 Temperature Pulse Rate Pulse Rate [ 91 H 91 H Bilateral Bases ] Respiratory Rate Respiratory 20 20 Rate [Bilateral Bases] Blood Pressure O2 Sat by Pulse 99 Oximetry Constitutional: no acute distress, lethargic, other ( chronically ill looking, cachexia) Eyes: non-icteric ENT: oropharynx moist, other (on supplemental oxygen via nasal canula) Neck: supple, no lymphadenopathy, JVD, other (no thyromegaly) Effort: mildly labored Ascultation: Bilateral: diminished breath sounds (severely), rales, rhonchi (scant in bases), other (Using acessary muscle use.) Percussion: Bilateral: not dull Cardiovascular: irregular rhythm, other (S1,S2, ) Gastrointestinal: hypoactive bowel sounds, tender, rebound tenderness, non- distended, other (no palpable HSM) Integumentary: normal Extremities: no cyanosis, pink and warm, pulses normal, no ischemia or petechiae Neurologic: non-focal exam (grossly), pupils equal and round, CN II-XII normal, other (weak) Psychiatric: mood appropriate, anxious CBC and BMP: 02/20/19 16:20 02/20/19 13:23 ABG, PT/INR, D-dimer: ABG POC ABG pH 7.462 (7.35-7.45) H 02/16/19 15:30 POC ABG HCO3 14.6 (22-26 mml/L) 02/16/19 15:30 POC ABG Total CO2 15 (23-27mmol/L) 02/16/19 15:30 POC ABG O2 Sat 86 02/16/19 15:30 PT/INR, D-dimer PT 19.3 Sec. (12.2-14.9) H 02/03/19 19:24 INR 1.52 (0.87-1.13) H 02/03/19 19:24 Abnormal lab findings: Abnormal Labs 02/03/19 02/03/19 02/03/19 02:57 18:06 18:06 WBC RBC 0.88 L Hgb 1.9 L* Hct 7.1 L* MCH 22 L MCHC 27 L RDW 23.3 H Plt Count 489 H [place] % (Auto) 10.1 H Lymph # 1.1 L Seg Neutrophils % 71.2 H Seg Neuts % (Manual) Lymphocytes % (Manual) Seg Neutrophils # Man Lymphocytes # (Manual) PT INR POC ABG pH POC ABG pCO2 POC ABG pO2 Sodium Potassium Chloride Carbon Dioxide BUN Creatinine Glucose POC Glucose Lactic Acid Calcium Phosphorus Alkaline Phosphatase Troponin T C-Reactive Protein NT-Pro-B Natriuret Pep 9160 H Total Protein Albumin Triglycerides HDL Cholesterol Urine WBC (Auto) 7.0 H Crossmatch 02/03/19 02/03/19 02/03/19 18:06 18:08 18:08 WBC RBC Hgb Hct MCH MCHC RDW Plt Count [place] % (Auto) Lymph # Seg Neutrophils % Seg Neuts % (Manual) Lymphocytes % (Manual) Seg Neutrophils # Man Lymphocytes # (Manual) PT INR POC ABG pH POC ABG pCO2 POC ABG pO2 Sodium Potassium 3.3 L Chloride Carbon Dioxide 17 L BUN Creatinine Glucose POC Glucose Lactic Acid 9.90 H* Calcium 7.9 L Phosphorus Alkaline Phosphatase Troponin T 0.134 H* C-Reactive Protein NT-Pro-B Natriuret Pep Total Protein 5.1 L Albumin 2.8 L Triglycerides 164 H HDL Cholesterol 31 L Urine WBC (Auto) Crossmatch See Detail 02/03/19 02/03/19 02/03/19 19:24 19:24 19:24 WBC RBC Hgb Hct MCH MCHC RDW Plt Count [place] % (Auto) Lymph # Seg Neutrophils % Seg Neuts % (Manual) Lymphocytes % (Manual) Seg Neutrophils # Man Lymphocytes # (Manual) PT 19.3 H INR 1.52 H POC ABG pH POC ABG pCO2 POC ABG pO2 Sodium Potassium Chloride Carbon Dioxide BUN Creatinine Glucose POC Glucose Lactic Acid 6.30 H* Calcium Phosphorus Alkaline Phosphatase Troponin T 0.139 H* C-Reactive Protein NT-Pro-B Natriuret Pep Total Protein Albumin Triglycerides HDL Cholesterol Urine WBC (Auto) Crossmatch 02/03/19 02/03/19 02/04/19 20:30 23:36 01:18 WBC RBC Hgb Hct MCH MCHC RDW Plt Count [place] % (Auto) Lymph # Seg Neutrophils % Seg Neuts % (Manual) Lymphocytes % (Manual) Seg Neutrophils # Man Lymphocytes # (Manual) PT INR POC ABG pH 7.515 H POC ABG pCO2 POC ABG pO2 121 H Sodium Potassium Chloride Carbon Dioxide BUN Creatinine Glucose POC Glucose Lactic Acid 6.50 H* 5.70 H* Calcium Phosphorus Alkaline Phosphatase Troponin T C-Reactive Protein NT-Pro-B Natriuret Pep Total Protein Albumin Triglycerides HDL Cholesterol Urine WBC (Auto) Crossmatch 02/04/19 02/04/19 02/04/19 04:35 04:35 04:35 WBC 17.5 H RBC Hgb Hct MCH 27 L MCHC RDW 15.9 H Plt Count [place] % (Auto) Lymph # Seg Neutrophils % Seg Neuts % (Manual) 96.0 H Lymphocytes % (Manual) 1.0 L Seg Neutrophils # Man 16.8 H Lymphocytes # (Manual) 0.2 L PT INR POC ABG pH POC ABG pCO2 POC ABG pO2 Sodium 147 H Potassium 3.2 L Chloride Carbon Dioxide 21 L BUN Creatinine Glucose 170 H POC Glucose Lactic Acid 3.60 H* Calcium 7.9 L Phosphorus Alkaline Phosphatase Troponin T C-Reactive Protein NT-Pro-B Natriuret Pep Total Protein Albumin Triglycerides HDL Cholesterol Urine WBC (Auto) Crossmatch 02/04/19 02/04/19 02/04/19 10:59 17:07 17:07 WBC RBC Hgb Hct MCH MCHC RDW Plt Count [place] % (Auto) Lymph # Seg Neutrophils % Seg Neuts % (Manual) Lymphocytes % (Manual) Seg Neutrophils # Man Lymphocytes # (Manual) PT INR POC ABG pH POC ABG pCO2 POC ABG pO2 Sodium Potassium 3.1 L Chloride Carbon Dioxide BUN Creatinine Glucose POC Glucose Lactic Acid 2.30 H* Calcium Phosphorus Alkaline Phosphatase Troponin T C-Reactive Protein 9.30 H NT-Pro-B Natriuret Pep Total Protein Albumin Triglycerides HDL Cholesterol Urine WBC (Auto) Crossmatch 02/04/19 02/04/19 02/05/19 17:15 21:04 00:05 WBC RBC Hgb Hct MCH MCHC RDW Plt Count [place] % (Auto) Lymph # Seg Neutrophils % Seg Neuts % (Manual) Lymphocytes % (Manual) Seg Neutrophils # Man Lymphocytes # (Manual) PT INR POC ABG pH 7.310 L POC ABG pCO2 POC ABG pO2 68 L Sodium Potassium Chloride Carbon Dioxide BUN Creatinine Glucose POC Glucose Lactic Acid 2.40 H* 2.70 H* Calcium Phosphorus Alkaline Phosphatase Troponin T C-Reactive Protein NT-Pro-B Natriuret Pep Total Protein Albumin Triglycerides HDL Cholesterol Urine WBC (Auto) Crossmatch 02/05/19 02/05/19 02/05/19 04:41 04:41 12:54 WBC 15.1 H RBC Hgb Hct MCH MCHC RDW 16.6 H Plt Count [place] % (Auto) Lymph # Seg Neutrophils % Seg Neuts % (Manual) 90.0 H Lymphocytes % (Manual) 2.0 L Seg Neutrophils # Man 13.6 H Lymphocytes # (Manual) 0.3 L PT INR POC ABG pH POC ABG pCO2 POC ABG pO2 74 L Sodium 147 H Potassium Chloride 114.1 H Carbon Dioxide 20 L BUN 19 H Creatinine Glucose 192 H POC Glucose Lactic Acid Calcium 7.4 L Phosphorus Alkaline Phosphatase Troponin T C-Reactive Protein NT-Pro-B Natriuret Pep Total Protein Albumin Triglycerides HDL Cholesterol Urine WBC (Auto) Crossmatch 02/06/19 02/06/19 02/06/19 01:46 11:42 11:42 WBC 21.1 H RBC Hgb Hct MCH MCHC RDW 17.0 H Plt Count [place] % (Auto) Lymph # Seg Neutrophils % Seg Neuts % (Manual) Lymphocytes % (Manual) Seg Neutrophils # Man Lymphocytes # (Manual) PT INR POC ABG pH POC ABG pCO2 34.4 L POC ABG pO2 56 L Sodium 151 H Potassium Chloride 112.1 H Carbon Dioxide BUN Creatinine Glucose 187 H POC Glucose Lactic Acid Calcium 8.1 L Phosphorus Alkaline Phosphatase Troponin T C-Reactive Protein NT-Pro-B Natriuret Pep Total Protein Albumin Triglycerides HDL Cholesterol Urine WBC (Auto) Crossmatch 02/06/19 02/07/19 02/07/19 12:04 04:26 05:27 WBC 21.7 H RBC Hgb Hct MCH MCHC RDW 17.6 H Plt Count [place] % (Auto) Lymph # Seg Neutrophils % Seg Neuts % (Manual) 98.0 H Lymphocytes % (Manual) 1.0 L Seg Neutrophils # Man 21.3 H Lymphocytes # (Manual) 0.2 L PT INR POC ABG pH 7.481 H POC ABG pCO2 31.3 L POC ABG pO2 63 L 50 L Sodium Potassium Chloride Carbon Dioxide BUN Creatinine Glucose POC Glucose Lactic Acid Calcium Phosphorus Alkaline Phosphatase Troponin T C-Reactive Protein NT-Pro-B Natriuret Pep Total Protein Albumin Triglycerides HDL Cholesterol Urine WBC (Auto) Crossmatch 02/07/19 02/07/19 02/07/19 05:27 05:29 23:07 WBC RBC Hgb Hct MCH MCHC RDW Plt Count [place] % (Auto) Lymph # Seg Neutrophils % Seg Neuts % (Manual) Lymphocytes % (Manual) Seg Neutrophils # Man Lymphocytes # (Manual) PT INR POC ABG pH POC ABG pCO2 POC ABG pO2 Sodium 147 H Potassium Chloride 108.4 H Carbon Dioxide BUN Creatinine 0.6 L Glucose 184 H POC Glucose 188 H 172 H Lactic Acid Calcium 8.3 L Phosphorus 1.50 L Alkaline Phosphatase Troponin T C-Reactive Protein NT-Pro-B Natriuret Pep Total Protein Albumin Triglycerides HDL Cholesterol Urine WBC (Auto) Crossmatch 02/08/19 02/08/19 02/08/19 04:26 04:26 11:50 WBC 18.8 H RBC Hgb Hct MCH MCHC RDW 17.7 H Plt Count [place] % (Auto) Lymph # Seg Neutrophils % Seg Neuts % (Manual) Lymphocytes % (Manual) Seg Neutrophils # Man Lymphocytes # (Manual) PT INR POC ABG pH POC ABG pCO2 POC ABG pO2 Sodium Potassium Chloride Carbon Dioxide BUN 19 H Creatinine 0.6 L Glucose 190 H POC Glucose 185 H Lactic Acid Calcium 8.2 L Phosphorus Alkaline Phosphatase Troponin T C-Reactive Protein NT-Pro-B Natriuret Pep Total Protein Albumin Triglycerides HDL Cholesterol Urine WBC (Auto) Crossmatch 02/08/19 02/08/19 02/08/19 12:01 17:44 18:52 WBC RBC Hgb Hct MCH MCHC RDW Plt Count [place] % (Auto) Lymph # Seg Neutrophils % Seg Neuts % (Manual) Lymphocytes % (Manual) Seg Neutrophils # Man Lymphocytes # (Manual) PT INR POC ABG pH POC ABG pCO2 POC ABG pO2 Sodium Potassium Chloride Carbon Dioxide BUN Creatinine Glucose POC Glucose 186 H 143 H Lactic Acid Calcium Phosphorus Alkaline Phosphatase Troponin T 0.058 H D C-Reactive Protein NT-Pro-B Natriuret Pep Total Protein Albumin Triglycerides HDL Cholesterol Urine WBC (Auto) Crossmatch 02/08/19 02/09/19 02/09/19 23:24 03:57 03:57 WBC 20.3 H RBC Hgb Hct MCH MCHC RDW 18.0 H Plt Count 92 L [place] % (Auto) Lymph # Seg Neutrophils % Seg Neuts % (Manual) Lymphocytes % (Manual) Seg Neutrophils # Man Lymphocytes # (Manual) PT INR POC ABG pH POC ABG pCO2 POC ABG pO2 Sodium Potassium Chloride Carbon Dioxide BUN 29 H Creatinine 0.5 L Glucose 172 H POC Glucose 205 H Lactic Acid Calcium Phosphorus Alkaline Phosphatase Troponin T C-Reactive Protein NT-Pro-B Natriuret Pep Total Protein Albumin Triglycerides HDL Cholesterol Urine WBC (Auto) Crossmatch 02/09/19 02/09/19 02/09/19 04:49 12:11 17:27 WBC RBC Hgb Hct MCH MCHC RDW Plt Count [place] % (Auto) Lymph # Seg Neutrophils % Seg Neuts % (Manual) Lymphocytes % (Manual) Seg Neutrophils # Man Lymphocytes # (Manual) PT INR POC ABG pH 7.473 H POC ABG pCO2 POC ABG pO2 Sodium Potassium Chloride Carbon Dioxide BUN Creatinine Glucose POC Glucose 136 H 149 H Lactic Acid Calcium Phosphorus Alkaline Phosphatase Troponin T C-Reactive Protein NT-Pro-B Natriuret Pep Total Protein Albumin Triglycerides HDL Cholesterol Urine WBC (Auto) Crossmatch 02/10/19 02/10/19 02/10/19 04:59 04:59 04:59 WBC 16.5 H RBC Hgb Hct MCH MCHC RDW 17.7 H Plt Count 94 L [place] % (Auto) Lymph # Seg Neutrophils % Seg Neuts % (Manual) Lymphocytes % (Manual) Seg Neutrophils # Man Lymphocytes # (Manual) PT INR POC ABG pH POC ABG pCO2 POC ABG pO2 Sodium Potassium Chloride Carbon Dioxide BUN 31 H 31 H Creatinine 0.6 L 0.6 L Glucose 149 H 152 H POC Glucose Lactic Acid Calcium Phosphorus Alkaline Phosphatase Troponin T C-Reactive Protein NT-Pro-B Natriuret Pep Total Protein Albumin Triglycerides HDL Cholesterol Urine WBC (Auto) Crossmatch 02/10/19 02/11/19 02/11/19 05:10 00:06 10:26 WBC 16.4 H RBC Hgb Hct MCH MCHC RDW 18.3 H Plt Count 111 L [place] % (Auto) Lymph # Seg Neutrophils % Seg Neuts % (Manual) Lymphocytes % (Manual) Seg Neutrophils # Man Lymphocytes # (Manual) PT INR POC ABG pH 7.518 H 7.482 H POC ABG pCO2 POC ABG pO2 173 H 119 H Sodium Potassium Chloride Carbon Dioxide BUN Creatinine Glucose POC Glucose Lactic Acid Calcium Phosphorus Alkaline Phosphatase Troponin T C-Reactive Protein NT-Pro-B Natriuret Pep Total Protein Albumin Triglycerides HDL Cholesterol Urine WBC (Auto) Crossmatch 02/11/19 02/12/19 02/12/19 10:26 04:19 04:19 WBC 16.8 H RBC 3.44 L Hgb 9.6 L Hct 30.2 L D MCH MCHC RDW 18.0 H Plt Count 131 L [place] % (Auto) Lymph # Seg Neutrophils % Seg Neuts % (Manual) Lymphocytes % (Manual) Seg Neutrophils # Man Lymphocytes # (Manual) PT INR POC ABG pH POC ABG pCO2 POC ABG pO2 Sodium 148 H 147 H Potassium Chloride 112.7 H 114.7 H Carbon Dioxide BUN 23 H Creatinine 0.5 L 0.5 L Glucose 195 H 152 H POC Glucose Lactic Acid Calcium Phosphorus Alkaline Phosphatase Troponin T C-Reactive Protein NT-Pro-B Natriuret Pep Total Protein Albumin Triglycerides HDL Cholesterol Urine WBC (Auto) Crossmatch 02/12/19 02/12/19 02/13/19 05:44 11:54 04:33 WBC 16.7 H RBC 3.24 L Hgb 9.1 L Hct 28.7 L MCH MCHC RDW 18.5 H Plt Count [place] % (Auto) Lymph # Seg Neutrophils % Seg Neuts % (Manual) 95.0 H Lymphocytes % (Manual) 3.0 L Seg Neutrophils # Man 15.9 H Lymphocytes # (Manual) 0.5 L PT INR POC ABG pH 7.466 H POC ABG pCO2 33.5 L POC ABG pO2 118 H Sodium Potassium Chloride Carbon Dioxide BUN Creatinine Glucose POC Glucose 147 H Lactic Acid Calcium Phosphorus Alkaline Phosphatase Troponin T C-Reactive Protein NT-Pro-B Natriuret Pep Total Protein Albumin Triglycerides HDL Cholesterol Urine WBC (Auto) Crossmatch 02/13/19 02/14/19 02/14/19 04:33 04:34 04:34 WBC 16.3 H RBC 3.56 L Hgb 10.0 L Hct MCH MCHC RDW 19.1 H Plt Count [place] % (Auto) Lymph # Seg Neutrophils % Seg Neuts % (Manual) 98.0 H Lymphocytes % (Manual) 1.0 L Seg Neutrophils # Man 16.0 H Lymphocytes # (Manual) 0.2 L PT INR POC ABG pH POC ABG pCO2 POC ABG pO2 Sodium Potassium Chloride 113.7 H 113.1 H Carbon Dioxide BUN Creatinine 0.4 L 0.4 L Glucose 193 H 215 H POC Glucose Lactic Acid Calcium Phosphorus Alkaline Phosphatase Troponin T C-Reactive Protein NT-Pro-B Natriuret Pep Total Protein Albumin Triglycerides HDL Cholesterol Urine WBC (Auto) Crossmatch 02/15/19 02/16/19 02/16/19 14:30 04:47 04:47 WBC 24.2 H 22.3 H RBC 3.31 L Hgb 9.4 L Hct 29.3 L MCH 27 L MCHC RDW 19.6 H 20.5 H Plt Count [place] % (Auto) Lymph # Seg Neutrophils % Seg Neuts % (Manual) 90.0 H Lymphocytes % (Manual) 1.0 L Seg Neutrophils # Man 20.1 H Lymphocytes # (Manual) 0.2 L PT INR POC ABG pH POC ABG pCO2 POC ABG pO2 Sodium Potassium Chloride 110.0 H Carbon Dioxide 18 L BUN Creatinine 0.3 L Glucose 115 H POC Glucose Lactic Acid Calcium Phosphorus Alkaline Phosphatase Troponin T C-Reactive Protein NT-Pro-B Natriuret Pep Total Protein Albumin Triglycerides HDL Cholesterol Urine WBC (Auto) Crossmatch 02/16/19 02/16/19 02/16/19 15:30 15:58 15:58 WBC RBC Hgb Hct MCH MCHC RDW Plt Count [place] % (Auto) Lymph # Seg Neutrophils % Seg Neuts % (Manual) Lymphocytes % (Manual) Seg Neutrophils # Man Lymphocytes # (Manual) PT INR POC ABG pH 7.462 H POC ABG pCO2 POC ABG pO2 Sodium Potassium Chloride Carbon Dioxide BUN Creatinine Glucose POC Glucose Lactic Acid 2.20 H* Calcium Phosphorus Alkaline Phosphatase Troponin T C-Reactive Protein 2.20 H NT-Pro-B Natriuret Pep Total Protein Albumin Triglycerides HDL Cholesterol Urine WBC (Auto) Crossmatch 02/16/19 02/17/19 02/17/19 18:01 04:56 04:56 WBC 28.9 H RBC 3.52 L Hgb 9.9 L Hct MCH MCHC RDW 19.8 H Plt Count [place] % (Auto) Lymph # Seg Neutrophils % Seg Neuts % (Manual) 91.0 H Lymphocytes % (Manual) 0.5 L Seg Neutrophils # Man 26.3 H Lymphocytes # (Manual) 0.1 L PT INR POC ABG pH POC ABG pCO2 POC ABG pO2 Sodium 132 L Potassium Chloride Carbon Dioxide 17 L BUN Creatinine 0.3 L Glucose 125 H POC Glucose Lactic Acid 2.80 H* Calcium Phosphorus Alkaline Phosphatase Troponin T C-Reactive Protein NT-Pro-B Natriuret Pep Total Protein Albumin Triglycerides HDL Cholesterol Urine WBC (Auto) Crossmatch 02/17/19 02/17/19 02/17/19 04:56 07:56 09:06 WBC RBC Hgb Hct MCH MCHC RDW Plt Count [place] % (Auto) Lymph # Seg Neutrophils % Seg Neuts % (Manual) Lymphocytes % (Manual) Seg Neutrophils # Man Lymphocytes # (Manual) PT INR POC ABG pH POC ABG pCO2 POC ABG pO2 Sodium Potassium Chloride Carbon Dioxide BUN Creatinine Glucose POC Glucose Lactic Acid 2.10 H* 2.40 H* 2.20 H* Calcium Phosphorus Alkaline Phosphatase Troponin T C-Reactive Protein NT-Pro-B Natriuret Pep Total Protein Albumin Triglycerides HDL Cholesterol Urine WBC (Auto) Crossmatch 02/17/19 02/18/19 02/18/19 10:22 05:17 05:17 WBC 29.6 H RBC 3.07 L Hgb 8.5 L Hct 27.4 L MCH MCHC RDW 20.7 H Plt Count [place] % (Auto) Lymph # Seg Neutrophils % Seg Neuts % (Manual) 99.0 H Lymphocytes % (Manual) 0 L Seg Neutrophils # Man 29.3 H Lymphocytes # (Manual) 0.0 L PT INR POC ABG pH POC ABG pCO2 POC ABG pO2 Sodium 136 L Potassium Chloride 108.5 H Carbon Dioxide 16 L BUN Creatinine 0.2 L Glucose 230 H POC Glucose Lactic Acid 2.40 H* Calcium Phosphorus Alkaline Phosphatase Troponin T C-Reactive Protein NT-Pro-B Natriuret Pep Total Protein Albumin Triglycerides HDL Cholesterol Urine WBC (Auto) Crossmatch 02/18/19 02/18/19 02/18/19 05:17 07:41 09:00 WBC RBC Hgb Hct MCH MCHC RDW Plt Count [place] % (Auto) Lymph # Seg Neutrophils % Seg Neuts % (Manual) Lymphocytes % (Manual) Seg Neutrophils # Man Lymphocytes # (Manual) PT INR POC ABG pH POC ABG pCO2 POC ABG pO2 Sodium Potassium Chloride Carbon Dioxide BUN Creatinine Glucose POC Glucose Lactic Acid 2.60 H* 2.20 H* 2.50 H* Calcium Phosphorus Alkaline Phosphatase Troponin T C-Reactive Protein NT-Pro-B Natriuret Pep Total Protein Albumin Triglycerides HDL Cholesterol Urine WBC (Auto) Crossmatch 02/18/19 02/18/19 02/20/19 12:18 14:53 04:51 WBC 23.2 H RBC 2.82 L Hgb 8.0 L Hct 24.4 L MCH MCHC RDW 20.6 H Plt Count [place] % (Auto) Lymph # Seg Neutrophils % Seg Neuts % (Manual) Lymphocytes % (Manual) Seg Neutrophils # Man Lymphocytes # (Manual) PT INR POC ABG pH POC ABG pCO2 POC ABG pO2 Sodium Potassium Chloride Carbon Dioxide BUN Creatinine Glucose POC Glucose Lactic Acid 2.50 H* 2.20 H* Calcium Phosphorus Alkaline Phosphatase Troponin T C-Reactive Protein NT-Pro-B Natriuret Pep Total Protein Albumin Triglycerides HDL Cholesterol Urine WBC (Auto) Crossmatch 02/20/19 04:51 WBC RBC Hgb Hct MCH MCHC RDW Plt Count [place] % (Auto) Lymph # Seg Neutrophils % Seg Neuts % (Manual) Lymphocytes % (Manual) Seg Neutrophils # Man Lymphocytes # (Manual) PT INR POC ABG pH POC ABG pCO2 POC ABG pO2 Sodium 136 L Potassium Chloride Carbon Dioxide 19 L BUN 19 H Creatinine 0.3 L Glucose POC Glucose Lactic Acid Calcium Phosphorus Alkaline Phosphatase 176 H Troponin T C-Reactive Protein NT-Pro-B Natriuret Pep Total Protein 4.8 L Albumin 2.2 L Triglycerides HDL Cholesterol Urine WBC (Auto) Crossmatch Chest x-ray: report reviewed (reported increased bronchovascular markings.), image reviewed Allied health notes reviewed: nursing
[2019-02-20] MEDS: ULTRAM FEEDTUBE PRN (11:38)
[2019-02-20] MEDS ORDERED: APRESOLINE IV PRN (12:05)
[2019-02-20] MEDS ORDERED: NACL 0.9% 1000 ML 1,000 ML ONE (12:23)
[2019-02-20] MEDS ORDERED: NACL 0.9% 1000 ML 1,000 ML IV ONE ×2 (12:27→16:28)
--- NOTE | 2019-02-20 12:52 | Event Note ---
Date: 02/20/19 Patient had shortness of breath, tachycardia, hypotensive. I saw and evaluated her. Discussed with Dr. Arthur also present. Plan is put back on BIPAP, transfer to ICU. Had family meeting with , daughter, Dr. Arthur and myself.
--- NOTE | 2019-02-20 13:02 | Event Note ---
Date: 02/20/19 Decompensated suddenly becoming hypotensive and encephaloptahic No high grade fevers no gross blood loss ABG reveals severe but compensated acidosis with adequate compensatory respiratory effort leucocytosis is persistent A&P: Severe Sepsis with shock possible IVVD element - volume resuscitation - get central access +/- vasopressor support - get CRP & Lactate - continue broad spectrum AB's and adjust per ID - continuous BIPAP for ventilatory support acutely - family to decide on CODE status going forwards - close observation
[2019-02-20 13:46] LABS: Hemoglobin 6.1 gm/dl (10.1-14.3); Mean Corpuscular HGB Conc 32 % (30-34); Mean Corpuscular Volume 87 fl (79-97); Platelet Count 437 K/mm3 (140-440); Red Blood Count 2.21 M/mm3 (3.65-5.03); Red Cell Distribution Width 20.4 % (13.2-15.2)
[2019-02-20 13:50] LABS: Hematocrit 19.2 % (30.3-42.9)
[2019-02-20] MEDS ORDERED: LEVOPHED 8 MG in NACL 0.9% 250ML 242 ML IV SCH (14:00)
[2019-02-20 14:18] LABS: BUN/Creatinine Ratio 46; Blood Urea Nitrogen 23 mg/dL (7-17); Calcium 9.1 mg/dL (8.4-10.2); Hemolysis Index 4
--- NOTE | 2019-02-20 15:04 | XRay Report ---
Single view chest: Compared to 02/20/19. History: Right PICC line placement. Findings: Normal cardiomediastinal silhouette. Trachea is midline. Prominent bronchovascular markings. No consolidation or pneumothorax. Tip of right PICC line in the right atrium. Normal CP angles. Impression: Tip of right PICC line in right atrium.
--- NOTE | 2019-02-20 16:09 | Progress Note ---
Assessment and Plan (1) Cecal volvulus Current Visit: Yes Status: Acute Plan to address problem: 68 yo F s/p exploratory laparotomy, right hemicolectomy POD9 for cecal volvulus and large bowel obstruction 1. cecal volvulus 2. ARF - now off vent 3. anemia 4. GIB - no further melena/bloody BM 5. n/v, SBO 6. hx CHF, EF 20-25% Patient's respiratory status decompensated and she was transferred to ICU on BIPAP. Plan: 1. restart TF when respiratory status improves 2. keep NPO until respiratory status improves 3. Gi ppx 4. DVT ppx 5. prn pain control 6. OOB/PT 7. PNA - mgmt per ID and Pulm 8. transfuse as needed 9. recommend CTA abdomen to evaluate abdominal aortic aneurysm as patient is having back pain, hypotension, tachycardia, and acute anemia. D/W Dr. Garcia Thank you, please call with questions. Subjective Date of service: 02/20/19 Narrative: Pt seen and examined. Upgraded to ICU due to hypotension, tachycardia, respiratory distress. Now on BIPAP. c/o back pain. Denies abdominal pain. Per nursing, BMs have been brown. Objective Vital Signs - 12hr 02/20/19 02/20/19 02/20/19 05:00 06:00 07:00 Temperature Pulse Rate 89 85 88 Pulse Rate [ Bilateral Bases ] Respiratory 20 19 20 Rate Respiratory Rate [Bilateral Bases] Blood Pressure 140/77 139/80 157/88 O2 Sat by Pulse 94 97 100 Oximetry 02/20/19 02/20/19 02/20/19 07:45 07:47 08:00 Temperature 97.7 F Pulse Rate 88 Pulse Rate [ 91 H Bilateral Bases ] Respiratory 19 Rate Respiratory 20 Rate [Bilateral Bases] Blood Pressure 161/86 O2 Sat by Pulse 99 100 Oximetry 02/20/19 02/20/19 02/20/19 08:02 09:00 10:00 Temperature Pulse Rate 90 104 H Pulse Rate [ 91 H Bilateral Bases ] Respiratory 20 24 Rate Respiratory 20 Rate [Bilateral Bases] Blood Pressure 152/84 159/84 O2 Sat by Pulse 97 94 Oximetry 02/20/19 02/20/19 02/20/19 11:00 11:30 11:45 Temperature Pulse Rate 97 H 109 H 141 H Pulse Rate [ Bilateral Bases ] Respiratory 25 H 36 H 34 H Rate Respiratory Rate [Bilateral Bases] Blood Pressure 152/92 161/98 152/92 O2 Sat by Pulse 98 95 94 Oximetry 02/20/19 02/20/19 02/20/19 11:52 12:00 12:01 Temperature 97.9 F Pulse Rate 140 H 138 H Pulse Rate [ Bilateral Bases ] Respiratory 35 H 33 H Rate Respiratory Rate [Bilateral Bases] Blood Pressure 161/98 152/92 O2 Sat by Pulse 95 96 Oximetry 02/20/19 02/20/19 02/20/19 12:15 12:31 12:37 Temperature Pulse Rate 132 H 117 H 119 H Pulse Rate [ Bilateral Bases ] Respiratory 38 H 31 H 28 H Rate Respiratory Rate [Bilateral Bases] Blood Pressure 56/36 77/50 78/47 O2 Sat by Pulse 96 99 98 Oximetry - General physical appearance Narrative Exam: Gen: Awake and alert. on BIPAP CV: S1, S2+ resp: on BIPAP Abd: soft, NT, ND. incision c/d/i Ext; no c/c/e - Labs 02/20/19 16:20 02/20/19 13:23 Diabetes panel 02/20/19 02/20/19 Range/Units 04:51 13:23 Sodium 136 L 135 L (137-145) mmol/L Potassium 3.7 4.1 (3.6-5.0) mmol/L Chloride 106.7 109.1 H (98-107) mmol/L Carbon Dioxide 19 L 13 L (22-30) mmol/L BUN 19 H 23 H (7-17) mg/dL Creatinine 0.3 L 0.5 L D (0.7-1.2) mg/dL Glucose 91 228 H (65-100) mg/dL Calcium 9.5 9.1 (8.4-10.2) mg/dL AST 20 (5-40) units/L ALT 24 (7-56) units/L Alkaline Phosphatase 176 H (35-129) units/L Total Protein 4.8 L (6.3-8.2) g/dL Albumin 2.2 L (3.9-5) g/dL Calcium panel 02/20/19 02/20/19 Range/Units 04:51 13:23 Calcium 9.5 9.1 (8.4-10.2) mg/dL Albumin 2.2 L (3.9-5) g/dL Pituitary panel 02/20/19 02/20/19 Range/Units 04:51 13:23 Sodium 136 L 135 L (137-145) mmol/L Potassium 3.7 4.1 (3.6-5.0) mmol/L Chloride 106.7 109.1 H (98-107) mmol/L Carbon Dioxide 19 L 13 L (22-30) mmol/L BUN 19 H 23 H (7-17) mg/dL Creatinine 0.3 L 0.5 L D (0.7-1.2) mg/dL Glucose 91 228 H (65-100) mg/dL Calcium 9.5 9.1 (8.4-10.2) mg/dL Adrenal panel 02/20/19 02/20/19 Range/Units 04:51 13:23 Sodium 136 L 135 L (137-145) mmol/L Potassium 3.7 4.1 (3.6-5.0) mmol/L Chloride 106.7 109.1 H (98-107) mmol/L Carbon Dioxide 19 L 13 L (22-30) mmol/L BUN 19 H 23 H (7-17) mg/dL Creatinine 0.3 L 0.5 L D (0.7-1.2) mg/dL Glucose 91 228 H (65-100) mg/dL Calcium 9.5 9.1 (8.4-10.2) mg/dL Total Bilirubin 0.30 (0.1-1.2) mg/dL AST 20 (5-40) units/L ALT 24 (7-56) units/L Alkaline Phosphatase 176 H (35-129) units/L Total Protein 4.8 L (6.3-8.2) g/dL Albumin 2.2 L (3.9-5) g/dL
--- NOTE | 2019-02-20 16:26 | Gastroenterology Progress Note ---
Assessment and Plan 1.GI bleed 2.melena 3.anemia - per nursing, brown stool without blood last night. No overt signs of active GI bleeding at this time. - Hgb downtrended today to 6. Repeat H/H pending -etiology unclear- possibly sequela given stable H/H (ulcer vs old blood from ileocolic staple line?). Patient was originally admitted with UGIB (possible ulcer given hx of NSAID use vs other) but was unable to undergo EGD due to instability -no plan for scope at this time given no signs of active GI bleeding and current worsening respiratory status, requiring continuous bipap -CT abdomen/pelvis with possible enteritis on 02/17/2019 -continue PPI and supportive care -will follow. 4.severe sepsis with shock 5.acute hypoxemic respiratory failure: CT chest on 02/17/2019 with multifocal infiltrates likely pneumonia. 6.cecal volvulus and large bowel obstruction-s/p exp lap with right hemicolectomy 7.acute systolic congestive heart failure exacerbation 8.adult failure to thrive Subjective Date of service: 02/20/19 Principal diagnosis: Ac hypoxemic Resp failure; Severe Anemia; AE-COPD; G.I. Bleed; Septic Shock Interval history: Patient transferred to ICU for worsening respiratory status. Hgb down to 6 today. Per nursing, she had stool overnight without any melena or blood in the stool. Currently on Bipap. Objective - Constitutional Vitals: Temp Pulse Resp BP Pulse Ox 97.9 F 119 H 28 H 78/47 98 02/20/19 12:00 02/20/19 12:37 02/20/19 12:37 02/20/19 12:37 02/20/19 12:37 - EENT ENT: hearing intact - Neck Neck: supple - Respiratory Respiratory effort: labored, other (On bipap) Respiratory: bilateral: diminished - Cardiovascular Rhythm: regular - Extremities Extremities: pulses intact, No edema - Gastrointestinal General gastrointestinal: Present: soft, tender, non-distended, normal bowel sounds - Integumentary Integumentary: Present: clear, dry - Labs CBC & Chem 7: 02/20/19 13:23 02/20/19 13:23 Labs: Laboratory Results - last 24 hr 02/20/19 02/20/19 02/20/19 04:51 04:51 12:37 WBC 23.2 H RBC 2.82 L Hgb 8.0 L Hct 24.4 L MCV 86 MCH 28 MCHC 33 RDW 20.6 H Plt Count 378 POC ABG pH 7.359 POC ABG pO2 86 POC ABG HCO3 9.6 POC ABG Total CO2 10 POC ABG O2 Sat 97 POC ABG Base Excess -16 FiO2 35 Sodium 136 L Potassium 3.7 Chloride 106.7 Carbon Dioxide 19 L Anion Gap 14 BUN 19 H Creatinine 0.3 L Estimated GFR > 60 BUN/Creatinine Ratio 63 Glucose 91 Calcium 9.5 Total Bilirubin 0.30 AST 20 ALT 24 Alkaline Phosphatase 176 H C-Reactive Protein Total Protein 4.8 L Albumin 2.2 L Albumin/Globulin Ratio 0.8 02/20/19 02/20/19 02/20/19 13:23 13:23 Unknown WBC 27.5 H RBC 2.21 L Hgb 6.1 L Hct 19.2 L* MCV 87 MCH 28 MCHC 32 RDW 20.4 H Plt Count 437 POC ABG pH POC ABG pO2 POC ABG HCO3 POC ABG Total CO2 POC ABG O2 Sat POC ABG Base Excess FiO2 Sodium 135 L Potassium 4.1 Chloride 109.1 H Carbon Dioxide 13 L Anion Gap 17 BUN 23 H Creatinine 0.5 L D Estimated GFR > 60 BUN/Creatinine Ratio 46 Glucose 228 H Calcium 9.1 Total Bilirubin AST ALT Alkaline Phosphatase C-Reactive Protein 2.20 H Total Protein Albumin Albumin/Globulin Ratio - Imaging CT scan: report reviewed
[2019-02-20 16:30] LABS: Mean Corpuscular HGB Conc 32 % (30-34); Mean Corpuscular Volume 88 fl (79-97); Platelet Count 388 K/mm3 (140-440); Red Blood Count 2.11 M/mm3 (3.65-5.03)
[2019-02-20] MEDS ORDERED: NACL 0.9% 500 ML 500 ML IV ONE (16:37)
[2019-02-20 16:39] LABS: Hematocrit 18.5 % (30.3-42.9); Hemoglobin 5.9 gm/dl (10.1-14.3); Red Cell Distribution Width 21.5 % (13.2-15.2)
[2019-02-20] MEDS ORDERED: PROTONIX IV SCH (17:05)
[2019-02-20 17:26] LABS: Anisocytosis 1+; Basophils % (Manual) 0 % (0.0-1.8); Eosinophils % (Manual) 0 % (0.0-4.3); Total Cells Counted 100
[2019-02-20 17:34] LABS: INR 1.28 (0.87-1.13)
[2019-02-20 17:35] LABS: Partial Thromboplastin Time 26.4 Sec. (24.2-36.6)
--- NOTE | 2019-02-20 18:25 | Cat Scan Report ---
PROCEDURE: CT ANGIO ABDOMEN PELVIS TECHNIQUE: Following administration of IV contrast axial helical imaging was performed through the a bdomen and pelvis with sagittal and coronal reformatted images obtained. HISTORY: Abdominal Aortic aneurysm. acute blood loss COMPARISONS: CT abdomen and pelvis dated February 17, 2019. FINDINGS: Visualization of detail is significantly limited by artifact created by monitoring devices in the pat ient's arms in the [id number]. Again noted is the 5 cm infrarenal abdominal aortic aneurysm that extends from the inferior aspect of the renal arteries to the level of the bifurcation. There has been interval development of hemoperitoneum in the left retroperitoneum posterior and media l to the left kidney extending inferiorly into the pelvis. There is slight anterior displacement of the left kidney by the hemoperitoneum. The liver, spleen and kidneys are unremarkable. The pancreas is not well visualized. The gallbladder is moderately distended. The bowel is normal caliber. The colon is largely fluid-filled with air-fluid levels. There is a bowel anastomosis in the proximal colon. There is no evidence of pneumoperitoneum. A percutaneous gastrostomy/feeding tube is present with the tip in the stomach. The urinary bladder is decompressed around a balloon catheter. The bony structures are notable for grade 2 anterolisthesis of L5 on S1. Skin closure val are demonstrated in the anterior midline of the abdomen. IMPRESSION: 1. Ruptured 5 cm infrarenal abdominal aortic aneurysm with hemoperitoneum the left retroperitoneum ex tending inferiorly into the pelvis. This finding was discussed with LIZETH Soriano at 6:20 PM February 20, 2019 with recommendation for STAT evaluation by the vascular surgeon. 2. Otherwise no significant change since previous study dated February 17, 2019. This document is electronically signed by Tamera Russell MD., February 20 2019 06:23:23 PM ET
--- NOTE | 2019-02-20 18:51 | Event Note ---
Date: 02/20/19 CT Angio shows ruptured abdominal aortic aneurysm 5cm, infrarenal.I discussed with Dr. Arthur, Pulm and Dr. Lew, Surgeon. Consulted Dr. Collins, vascular Surgeon and he states patient needs to be transferred out to [place].
[2019-02-20] MEDS ORDERED: NACL 0.9% 500 ML 500 ML IV NR (18:52)
--- NOTE | 2019-02-20 19:01 | Discharge Summary ---
Providers - Providers Date of Admission: 02/03/19 20:30 Date of discharge: 02/20/19 Attending physician: KWAN JOHNSON 02/03/19 19:33 Consult to Physician [CONS] Stat Comment: Consulting Provider: JAZZY HICKS Physician Instructions: Reason For Exam: GI BLEED 02/03/19 20:30 Consult to Dietitian/Nutrition [CONS] Routine Physician Instructions: Reason For Exam: Reason for Consult: Diet education 02/03/19 21:44 Consult to Physician [CONS] Routine Comment: Consulting Provider: DIMAS HAYS Physician Instructions: Reason For Exam: Critical care management 02/06/19 10:53 Consult to Dietitian/Nutrition [CONS] Routine Physician Instructions: Reason For Exam: Reason for Consult: Write/Manage Tube Feeding 02/06/19 12:36 Consult to Dietitian/Nutrition [CONS] Routine Physician Instructions: Assess nutrtn needs, initiate, modify, manage TF Reason For Exam: Reason for Consult: Write/Manage Tube Feeding Reason for Consult: Write/Manage Tube Feeding 02/06/19 12:45 Consult to Physician [CONS] Routine Comment: Consulting Provider: BRITNEY FLORES Physician Instructions: Reason For Exam: hypernatremia 02/08/19 08:33 Consult to Dietitian/Nutrition [CONS] Routine Physician Instructions: Assess nutrtn needs, initiate, modify, manage TF Reason For Exam: Reason for Consult: Write/Manage Tube Feeding Reason for Consult: Write/Manage Tube Feeding 02/09/19 15:54 Consult to Physician [CONS] Routine Comment: Consulting Provider: ANSON MEI Physician Instructions: Reason For Exam: Vomiting, poss small bowel obstruction 02/12/19 09:04 Occupational Therapy Evaluate and Treat [CONS] Routine Comment: Reason For Exam: deconditioning, needs help with ADLS Physical Therapy Evaluation and Treat [CONS] Routine Comment: Reason For Exam: deconditioning, critical illness 02/13/19 09:07 Speech Therapy Evaluation and Treat [CONS] Routine Reason For Exam: extubated, swallow evalaution 02/16/19 15:41 Consult to Physician [CONS] Routine Comment: Consulting Provider: KVNG KYLE Physician Instructions: Reason For Exam: pneumonia; persistent leucocytosis 02/20/19 12:26 PICC Line Placement [Consult to PICC Line RN] [CONS] Stat Reason For Exam: change in condition Type Line:: PICC 02/20/19 18:23 Consult to Physician [CONS] Urgent Comment: Consulting Provider: DOMINIC HALL Physician Instructions: Reason For Exam: Ruptured abdominal aneurysm, Primary care physician: STORY WRITER Hospitalization Condition: Critical Hospital course: Patient is 68 yo female with PMHx of CHF, COPD, who was brought to the ER by EMS after a fall at home, altered mental status, respiratory distress. Per EMS patient was found in severe respiratory distress, laying on the floor and covered in her feces. According to EMS the had asked a neighbor to call EMS because the patient fell on the floor and he was unable to pick her up. He states that she had been sick for a few days, she had trouble breathing, and he had been taking a lot of "goody powder" for pain. On arrival to the ER patient was lethargic, responded to name, her blood pressure was 80/54, the temperature was 97.1, respiration was 40 BPM, she had h&h of 1.9/7.1, GI was consulted and she was admitted for acute GI bleed, acute blood loss anemia, CHF (BNP was 9100) and COPD exacerbation. respiratory failure worsened, so was intubated. She was seen by GI Physician, put on Protonix iv, but EGD not done because unstable. Patient with vomiting vomiting and CT revealed bowel obstruction, surg consulted and evaluated her. The patient underwent exploratory laparotomy, right hemicolectomy for cecal volvulus and large bowel obstruction. Patient was extubated on 02/04/19. Patient had some improvement and has been started on pured diet with thin liquids as per speech therapy recommendations. She was improving, however today 02/20/19, became short of breath acutely, and sudden drop in BP. Repeat CBC revealed hemoglobin drop to 5.9. She was then put on BIPAP transferred to ICU. CTA Abdomen was done revealed ruptured 5cm infrarenal abdominal aortic aneurysm with hemoperitoneum. I consulted and discussed with Dr. Ramos, [facility] surgeon and he recommends transfer to [place]. I called and discussed with Dr. Allen, [facility] and he has kindly accepted patient. Ordered 4 units PRBC. Total time spent on discharge, 45 mins Disposition: [id number] [facility] IP - Discharge Diagnoses (1) Ruptured abdominal aortic aneurysm Status: Acute (2) Acute respiratory failure Status: Acute (3) COPD exacerbation Status: Acute (4) Gastrointestinal hemorrhage Status: Acute (5) Pneumonia Status: Acute (6) Sepsis Status: Acute Core Measure Documentation - Palliative Care Palliative Care/ Comfort Measures: Not Applicable - Core Measures Any of the following diagnoses?: none Exam - Constitutional Vitals: Temp Pulse Resp BP Pulse Ox 97.4 F L 106 H 17 94/65 100 02/20/19 18:50 02/20/19 18:50 02/20/19 18:50 02/20/19 18:50 02/20/19 18:50 Plan Additional Instructions: 1.Transfer to [place] to Dr. Allen, vasc surg. 2.Cntinue vancomycin iv. 3.Cont D5NS @ 75 Follow up with: KRYSTIN MUNOZ MD [Referring] - 3-5 Days
[2019-02-20] MEDS ORDERED: D5NS 1,000 ML IV SCH (21:00)
[2019-02-20 21:45] VITALS: BP 151/108
--- NOTE | 2019-02-25 07:48 | XRay Report ---
AP CHEST: HISTORY: Respiratory distress Compared to the CT chest dated 02/17/19. Mild bilateral groundglass infiltrates are identified which probably represent mild congestive changes. Infectious infiltrates are thought less likely. No large pleural effusion or pneumothorax. Heart size and mediastinal contour are within normal limits. The bony structures are demineralized but grossly intact. A feeding tube is followed to the distal stomach. IMPRESSION: Mild bilateral congestive changes or infiltrates. No overwhelming change since 02/17/19.
== END 2019-02-20 22:15 | disposition short-term general hospital (02) | DRG 853 ==
LOC: ED 17:28 → CC1 20:30 → EDBD 20:30 → CC1 22:04 → 4A 02-14 17:35 → IMCU 02-16 17:16 → CC1 02-20 12:33
PROVIDERS: ADMIT Internal Medicine; ATTEND Internal Medicine
PROC: 30233N1 Transfusion of Nonautologous Red Blood Cells into Peripheral Vein, Percutaneous Approach (ICD-10-PCS; 2019-02-03)
PROC: 4A033R1 Measurement of Arterial Saturation, Peripheral, Percutaneous Approach (ICD-10-PCS; 2019-02-03)
PROC: 5A09357 Assistance with Respiratory Ventilation, Less than 24 Consecutive Hours, Continuous Positive Airway Pressure (ICD-10-PCS; 2019-02-03)
PROC: 5A09357 Assistance with Respiratory Ventilation, Less than 24 Consecutive Hours, Continuous Positive Airway Pressure (ICD-10-PCS; 2019-02-04)
PROC: 5A09357 Assistance with Respiratory Ventilation, Less than 24 Consecutive Hours, Continuous Positive Airway Pressure (ICD-10-PCS; 2019-02-05)
PROC: 0BH17EZ Insertion of Endotracheal Airway into Trachea, Via Natural or Artificial Opening (ICD-10-PCS; principal; 2019-02-06)
PROC: 5A1955Z Respiratory Ventilation, Greater than 96 Consecutive Hours (ICD-10-PCS; 2019-02-06)
PROC: 5A09357 Assistance with Respiratory Ventilation, Less than 24 Consecutive Hours, Continuous Positive Airway Pressure (ICD-10-PCS; 2019-02-06)
PROC: 0D9670Z Drainage of Stomach with Drainage Device, Via Natural or Artificial Opening (ICD-10-PCS; 2019-02-07)
PROC: 0DTF0ZZ Resection of Right Large Intestine, Open Approach (ICD-10-PCS; 2019-02-11)
PROC: 5A09357 Assistance with Respiratory Ventilation, Less than 24 Consecutive Hours, Continuous Positive Airway Pressure (ICD-10-PCS; 2019-02-16)
PROC: 5A09357 Assistance with Respiratory Ventilation, Less than 24 Consecutive Hours, Continuous Positive Airway Pressure (ICD-10-PCS; 2019-02-17)
PROC: 5A09357 Assistance with Respiratory Ventilation, Less than 24 Consecutive Hours, Continuous Positive Airway Pressure (ICD-10-PCS; 2019-02-18)
PROC: 5A09357 Assistance with Respiratory Ventilation, Less than 24 Consecutive Hours, Continuous Positive Airway Pressure (ICD-10-PCS; 2019-02-19)
PROC: 5A09357 Assistance with Respiratory Ventilation, Less than 24 Consecutive Hours, Continuous Positive Airway Pressure (ICD-10-PCS; 2019-02-20)
PROC: 02HV33Z Insertion of Infusion Device into Superior Vena Cava, Percutaneous Approach (ICD-10-PCS; 2019-02-20)
DX: A41.9 Sepsis, unspecified organism (principal); J96.01 Acute respiratory failure with hypoxia; E43 Unspecified severe protein-calorie malnutrition; K56.2 Volvulus; R65.21 Severe sepsis with septic shock; I50.23 Acute on chronic systolic (congestive) heart failure; J18.9 Pneumonia, unspecified organism; I71.3 Abdominal aortic aneurysm, ruptured; K66.1 Hemoperitoneum; E87.0 Hyperosmolality and hypernatremia; K56.1 Intussusception; K92.1 Melena; K92.2 Gastrointestinal hemorrhage, unspecified; J44.1 Chronic obstructive pulmonary disease with (acute) exacerbation; G93.40 Encephalopathy, unspecified; D62 Acute posthemorrhagic anemia; Z68.1 Body mass index [BMI] 19.9 or less, adult; E87.6 Hypokalemia; I11.0 Hypertensive heart disease with heart failure; R62.7 Adult failure to thrive; D69.6 Thrombocytopenia, unspecified; W18.39XA Other fall on same level, initial encounter; Y93.89 Activity, other specified; Y92.098 Other place in other non-institutional residence as the place of occurrence of the external cause; Y99.8 Other external cause status; Z82.49 Family history of ischemic heart disease and other diseases of the circulatory system
CPT/HCPCS: 31500; 36415; 36430; 36600; 70450; 71045; 71250; 74018; 74022; 74174; 74176; 74177; 80048; 80053; 80061; 81001; 82140; 82271; 82803; 82962; 83735; 83880; 84100; 84132; 84484; 85007; 85014; 85018; 85025; 85027; 85610; 85730; 86140; 86850; 86900; 86901; 86920; 87040; 87070; 87205; 88307; 93005; 93010; 93306; 94002; 94003; 94640; 94644; 94660; 94760; 96365; 99406; G0378; C9113; J0690; J0692; J1170; J1630; J1650; J1940; J1956; J2060; J2250; J2270; J2405; J2543; J2704; J2920; J2930; J3010; J3370; J3480; J7030; J7040; J7042; J7050; J7070; J7120; P9016; Q9967

== ENCOUNTER 2019-03-06 08:43 | Inpatient (IN) | payer SELFPAY ==
--- NOTE | 2019-03-06 23:29 | History and Physical Report ---
History of Present Illness Chief complaint: Status post repair of ruptured AAA History of present illness: Patient is 68 yo female with PMHx of CHF, COPD, who was brought to the ER by EMS after a fall at home, altered mental status, respiratory distress. Per EMS patient was found in severe respiratory distress, laying on the floor and covered in her feces. According to EMS the had asked a neighbor to call EMS because the patient fell on the floor and he was unable to pick her up. He states that she had been sick for a few days, she had trouble breathing, and he had been taking a lot of "goody powder" for pain. The patient was found to be confused, lethargic, hypotensive, hypothermic, tachypneic, with hemoglobin of 1.9, severe anemia. -She was transfused, treated for severe anemia, COPD exacerbation, CHF. Respiratory failure worsened requiring intubation. She received PPI, EGD was planned the patient was unstable to get the test. She then developed bowel obstruction, received exploratory laparoscopy, right hemicolectomy for cecal volvulus and large bowel obstruction. The patient was extubated on 02/04/19. Patient was improving and placed on a pured diet. However on 02/20/19 she became acutely short of breath and hypotensive, she again had a drop in hemoglobin. CT angiogram revealed ruptured 5 cm infrarenal AAA. She was seen by vascular surgery, and was transferred to [place]. She received AAA repair at [place] on 02/21/19, has a maintained on heparin drip then transferred back to [facility]. While she was at [place] she had ultrasound of lower extremity which showed nonocclusive subacute to chronic DVT of bilateral lower extremities. She was found to have melena on 02/23, underwent flexible sigmoidoscopy and EGD followed by exploratory laparoscopy and completion of total colectomy, abdominal washout and end ileostomy on 02/24 -Patient has been sent back to [facility] per Hospital to Hospital agreements -Currently she is not complaining of abdominal pain. She has generalized weakness due to multiple surgeries and prolonged ICU stays. No nausea no vomiting, she stable Past Medical History: COPD, heart failure, hypertension, AAA status post rupture, large bowel obstruction and GI bleed status post total colectomy Past Surgical History: No surgical history Social history: , lives with family (spouse) Family history: no significant family history Medications and Allergies Allergies Allergy/AdvReac Type Severity Reaction Status Date / Time No Known Allergies Allergy Unverified 02/03/19 18:28 Home Medications Medication Instructions Recorded Confirmed Last Taken Type Arformoterol Nebu [Brovana Nebu] 15 mcg IH Q12HRT ml 02/20/19 Unknown Rx Budesonide [Pulmicort Respules] 0.5 mg IH Q12HRT nebu 02/20/19 Unknown Rx Ipratropium/Albuterol Sulfate 1 ampul IH Q6HRT ampul.neb 02/20/19 Unknown Rx [DUONEB *Not for PRN Use*] Pantoprazole [Protonix INJ] 40 mg IV BID vial 02/20/19 Unknown Rx Petrolatum,White [Vaseline Lip 1 applic TP Q2HR PRN tube 02/20/19 Unknown Rx Therapy] methylPREDNISolone Sod Suc 60 mg IV Q8H vial 02/20/19 Unknown Rx [Solu-MEDROL] Review of Systems All systems: negative Constitutional: weight loss, anorexia, fatigue, weakness Ears, nose, mouth and throat: no tinnitis Cardiovascular: no chest pain Respiratory: no cough Gastrointestinal: no abdominal pain Genitourinary Female: no pelvic pain Menstruation: no currently menstrual Rectal: no pain Musculoskeletal: no neck stiffness Integumentary: no rash Neurological: no head injury Psychiatric: no anxiety Endocrine: no cold intolerance Hematologic/Lymphatic: no easy bruising Allergic/Immunologic: no urticaria Exam - Constitutional General appearance: Present: severe distress, cachectic, other (tachypneic, appears chronically ill, non responsive) - EENT Eyes: Present: PERRL ENT: no oropharyngeal erythema - Neck Neck: Present: supple, normal ROM - Respiratory Respiratory effort: normal Respiratory: bilateral: CTA - Cardiovascular Heart Sounds: Present: S1 & S2. Absent: rub, click - Extremities Extremities: pulses symmetrical, No edema Peripheral Pulses: within normal limits - Abdominal General gastrointestinal: Present: soft, non-tender, non-distended, normal bowel sounds Female genitourinary: Present: normal - Integumentary Integumentary: Present: clear, warm, dry - Musculoskeletal Musculoskeletal: other (unable to assess) - Psychiatric Psychiatric: no appropriate mood/affect, other (opens eyes to voice) - Neurologic Neurologic: other (obtunded) Results - Labs CBC & Chem 7: 03/07/19 07:56 03/07/19 07:56 Assessment and Plan Assessment and plan: Patient is 68 yo female with PMHx of CHF, COPD, who was brought to the ER by EMS after a fall at home, altered mental status, respiratory distress. Per EMS patient was found in severe respiratory distress, laying on the floor and covered in her feces. According to EMS the had asked a neighbor to call EMS because the patient fell on the floor and he was unable to pick her up. He states that she had been sick for a few days, she had trouble breathing, and he had been taking a lot of "goody powder" for pain. The patient was found to be confused, lethargic, hypotensive, hypothermic, tachypneic, with hemoglobin of 1.9, severe anemia. -She was transfused, treated for severe anemia, COPD exacerbation, CHF. Respiratory failure worsened requiring intubation. She received PPI, EGD was planned the patient was unstable to get the test. She then developed bowel obstruction, received exploratory laparoscopy, right hemicolectomy for cecal volvulus and large bowel obstruction. -The patient was extubated on 02/04/19. Patient was improving and placed on a pured diet. - However on 02/20/19 she became acutely short of breath and hypotensive, she again had a drop in hemoglobin. CT angiogram revealed ruptured 5 cm infrarenal AAA. She was seen by vascular surgery, and was transferred to [place]. She received AAA repair at [place] on 02/21/19, has been maintained on heparin drip then transferred back to [facility]. While she was at [place] she had ultrasound of lower extremity which showed nonocclusive subacute to chronic DVT of bilateral lower extremities. She was found to have melena on 02/23, underwent flexible sigmoidoscopy and EGD followed by exploratory laparoscopy and completion of total colectomy, abdominal washout and end ileostomy on 02/24 -Patient has been sent back to [facility] per Hospital to Hospital agreements Acute metabolic encephalopathy Apparently the patient has been minimally responsive at [place] before she was transferred Infrarenal AAA rupture -sp surgical repair at [place], vasc sx consulted Bilat LE DVT cont heparin Drip, will need to transition to oral meds when safe to do so, will defer to vasc sx and hematology SIRS, fever of 101 obtain blood cx, ua, urine cx, stat cxr- broad spectrum abx, ID consult Acute resp failure with hypoxia cont oxygen, obtain CXR, abg and place on bipap, work of breathing is too much at 50bpm GI bleed; resolved sp total colectomy Acute blood loss anemia; 2/2 above, was transfused Copd- nebs prn chronic systolic CHF EF 25% cardiology consulted Debility due to multiple surgeries and prolonged ICU stay, PT/OT and CM consult Dysphagia; ST consult was put on contact iso for resp secretion growing Burkholderia Cepaciae at [place] Prognosis extremely poor, the patient is developed Kussmaul's breathing, she is breathing at 50 breaths per minutes and does not actually seem labored and is only taking shallow inspirations. We'll need to have a discussion with her and her family, and convey that patient has a poor prognosis. At this point would recommend hospice or palliative care family is agreeable- CCT 33 minutes
[2019-03-06] MEDS ORDERED: VASELINE LIP THERAPY TP PRN (23:31)
[2019-03-06] MEDS ORDERED: SODIUM CHLORIDE FLUSH SYRINGE 10 ML IV PRN (23:37)
[2019-03-06] MEDS ORDERED: TYLENOL PO PRN (23:37)
[2019-03-06] MEDS ORDERED: ZOFRAN IV PRN (23:37)
[2019-03-06] MEDS ORDERED: PROVENTIL IH PRN (23:37)
[2019-03-07 00:01] LABS: Hematocrit 27.6 % (30.3-42.9)
[2019-03-07 00:14] LABS: INR 1.17 (0.87-1.13)
[2019-03-07 00:15] LABS: Partial Thromboplastin Time 34.8 Sec. (24.2-36.6)
[2019-03-07] MEDS: HEPARIN/ 0.45% NACL-25,000 UNIT/500 ML 25,000 UNIT/500 ML BAG IV SCH (00:39)
--- NOTE | 2019-03-07 06:06 | XRay Report ---
PROCEDURE: XR CHEST 1V AP TECHNIQUE: Chest radiograph single view. HISTORY: sob COMPARISONS: 02/16/2019 . FINDINGS: Heart: Normal. Mediastinum/Vessels: Normal. Lungs/Pleural space: There is patchy airspace disease in both lungs suspicious for bilateral pneumon ia. Pleural fluid is not seen.. Bony thorax: No acute osseous abnormality. Life support devices: The nasogastric tube is coursing well into the stomach.. IMPRESSION: Bilateral patchy infiltrates compatible with pneumonia with slight improvement in the ri ght lung base.. This document is electronically signed by Emigdio Anand MD., March 07 2019 06:04:17 AM ET
[2019-03-07] MEDS: MAXIPIME/NS 2 GM/100 ML 2 GM/100 ML BAG IV SCH ×3 (07:33→21:54)
[2019-03-07 09:02] LABS: Alanine Aminotransferase 22 units/L (7-56); BUN/Creatinine Ratio 105; Blood Urea Nitrogen 21 mg/dL (7-17); Calcium 9.6 mg/dL (8.4-10.2); Hemolysis Index 18
--- NOTE | 2019-03-07 09:03 | Progress Note ---
Assessment and Plan Assessment and plan: Patient is 68 yo female with PMHx of CHF, COPD, who was brought to the ER by EMS after a fall at home, altered mental status, respiratory distress. Per EMS patient was found in severe respiratory distress, laying on the floor and covered in her feces. According to EMS the had asked a neighbor to call EMS because the patient fell on the floor and he was unable to pick her up. He states that she had been sick for a few days, she had trouble breathing, and he had been taking a lot of "goody powder" for pain. The patient was found to be confused, lethargic, hypotensive, hypothermic, tachypneic, with hemoglobin of 1.9, severe anemia. -She was transfused, treated for severe anemia, COPD exacerbation, CHF. Respiratory failure worsened requiring intubation. She received PPI, EGD was planned the patient was unstable to get the test. She then developed bowel obstruction, received exploratory laparoscopy, right hemicolectomy for cecal volvulus and large bowel obstruction. The patient was extubated on 02/04/19. Patient was improving and placed on a pured diet. However on 02/20/19 she became acutely short of breath and hypotensive, she again had a drop in hemoglobin. CT angiogram revealed ruptured 5 cm infrarenal AAA. She was seen by vascular surgery, and was transferred to [place]. She received AAA repair at [place] on 02/21/19, has a maintained on heparin drip then transferred back to [facility]. While she was at [place] she had ultrasound of lower extremity which showed non-occlusive subacute to chronic DVT of bilateral lower extremities. She was found to have melena on 02/23, underwent flexible sigmoidoscopy and EGD followed by exploratory laparoscopy and completion of total colectomy, abdominal washout and end ileostomy on 02/24/19. Patient has been sent back to [facility] and re-admitted 03/06/19 Toxic metabolic encephalopathy Apparently the patient has been minimally responsive but every before she was transferred Infrarenal AAA rupture -sp surgical repair at [place], vasc sx consulted Bilat LE DVT cont heparin Drip, will need to transition to oral meds when safe to do so, will defer to vasc sx and hematology SIRS versus Sepsis. fever of 101.2 Blood cultures drawnobtain blood cx- broad spectrum abx, ID consult Acute resp failure with hypoxia cont BIPAP. Consult Pulmonology = discussed with Dr. 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 History Interval history: Patient transferred here from [place] yesterday Put on BIPAP for respiratory distress Hospitalist Physical - Physical exam Narrative exam: Gen: Not in acute distress, lying in bed,malnourished, very ill looking, BIPAP mask on HEENT: Normocephalic, atraumatic Neck: supple, no JVD Heart: S1 and S2 reg, no murmurs, rubs or gallop Lungs: Bilateral crackles, decreased breath sounds, no wheeze Abd: soft, non tender, non distended, normal BS, stomy bag Ext: No edema, no clubbing, no cyanosis, Neuro: Lethargic, not following commands - Constitutional Vitals: Temp Pulse Resp BP Pulse Ox 99.2 F 109 H 41 H 98/48 95 03/07/19 05:47 03/07/19 06:00 03/07/19 06:00 03/07/19 06:00 03/07/19 06:00 General appearance: Present: severe distress, cachectic, other (tachypneic, appears chronically ill, non responsive) Results - Labs CBC & Chem 7: 03/07/19 07:56 03/07/19 07:56 Labs: Laboratory Last Values Hgb 9.0 gm/dl (10.1-14.3) L 03/06/19 23:52 Hct 27.6 % (30.3-42.9) L 03/06/19 23:52 Plt Count 312 K/mm3 (140-440) 03/06/19 23:52 PT 14.6 Sec. (12.2-14.9) 03/06/19 23:52 INR 1.17 (0.87-1.13) H 03/06/19 23:52 APTT 34.8 Sec. (24.2-36.6) 03/06/19 23:52 Heparin Anti-Xa Level < 0.10 U.I./ml (0.3-0.7) L 03/07/19 07:19 POC ABG pH 7.249 (7.35-7.45) L 03/07/19 05:57 POC ABG pCO2 49.2 (35-45) H 03/07/19 05:57 POC ABG pO2 73 (80-105) L 03/07/19 05:57 POC ABG HCO3 21.6 (22-26 mml/L) 03/07/19 05:57 POC ABG Total CO2 23 (23-27mmol/L) 03/07/19 05:57 POC ABG O2 Sat 91 03/07/19 05:57 POC ABG Base Excess -6 ((-2) - (+3)mmol/L) 03/07/19 05:57 28 % 03/07/19 05:57 Sodium 141 mmol/L (137-145) 03/07/19 07:56 Potassium 5.0 mmol/L (3.6-5.0) 03/07/19 07:56 Chloride 110.7 mmol/L (98-107) H 03/07/19 07:56 Carbon Dioxide 21 mmol/L (22-30) L 03/07/19 07:56 14 mmol/L 03/07/19 07:56 BUN 21 mg/dL (7-17) H 03/07/19 07:56 0.2 mg/dL (0.7-1.2) L 03/07/19 07:56 Estimated GFR > 60 ml/min 03/07/19 07:56 105 % 03/07/19 07:56 Glucose 63 mg/dL (65-100) L 03/07/19 07:56 Calcium 9.6 mg/dL (8.4-10.2) 03/07/19 07:56 0.60 mg/dL (0.1-1.2) 03/07/19 07:56 AST 22 units/L (5-40) 03/07/19 07:56 ALT 22 units/L (7-56) 03/07/19 07:56 253 units/L (35-129) H 03/07/19 07:56 5.4 g/dL (6.3-8.2) L 03/07/19 07:56 2.0 g/dL (3.9-5) L 03/07/19 07:56 0.6 % 03/07/19 07:56 Blood Type A POSITIVE 03/07/19 07:19 Antibody Screen Negative 03/07/19 07:19 Active Medications - Current Medications Current Medications: Generic Name Dose Route Start Last Admin Trade Name Freq PRN Reason Stop Dose Admin Acetaminophen 650 mg 03/06/19 23:37 03/07/19 07:34 Tylenol PO 650 mg Q4H PRN Administration Pain MILD(1-3)/Fever >100.5/DOMINGUEZ Albuterol 2.5 mg 03/06/19 23:37 Proventil IH Q4HRT PRN Shortness Of Breath Arformoterol Tartrate 15 mcg 03/07/19 08:00 Brovana Nebu IH Q12HRT JOEL Budesonide 0.5 mg 03/07/19 08:00 Pulmicort IH Q12HRT [facility] Hydrophilic Ointment 1 applic 03/06/19 23:31 Vaseline Lip Therapy TP Q2HR PRN Dry Lips Heparin Sodium/Sodium Chloride 25,000 unit in 500 mls @ 14.28 mls/hr 03/06/19 23:45 03/07/19 00:39 Heparin/ 0.45% Nacl-25,000 Unit/500 Ml IV 714 units/hr TITR JOEL 14.28 mls/hr Administration Protocol 714 UNITS/HR Cefepime HCl 2 gm in 100 mls @ 200 mls/hr 03/07/19 06:00 03/07/19 07:33 Maxipime/Ns 2 Gm/100 Ml IV 200 mls/hr Q8HR [facility] Administration Protocol Morphine Sulfate 2 mg 03/06/19 23:37 Morphine IV Q4H PRN Pain, Moderate (4-6) Ondansetron HCl 4 mg 03/06/19 23:37 Zofran IV Q8H PRN Nausea And Vomiting Oxycodone/Acetaminophen 1 tab 03/06/19 23:37 Percocet 5/325 PO Q6H PRN Pain, Moderate (4-6) Pantoprazole Sodium 40 mg 03/07/19 10:00 Protonix IV BID [facility] Sodium Chloride 10 ml 03/07/19 10:00 Sodium Chloride Flush Syringe 10 Ml IV BID JOEL Sodium Chloride 10 ml 06/19/19 23:37 Sodium Chloride Flush Syringe 10 Ml IV PRN PRN LINE FLUSH
--- NOTE | 2019-03-07 09:10 | XRay Report ---
AP ABDOMEN: HISTORY: Dobbhoff tube placement. The distal tip of the Dobbhoff tube overlies the antrum of the stomach. There is moderate gas throughout the GI system suggestive of an ileus. IMPRESSION: Dobbhoff tube terminates in the antrum of the stomach.
[2019-03-07 09:25] LABS: Hematocrit 30.1 % (30.3-42.9); Hemoglobin 9.5 gm/dl (10.1-14.3); Mean Corpuscular HGB Conc 32 % (30-34); Mean Corpuscular Volume 96 fl (79-97); Platelet Count 348 K/mm3 (140-440); Red Blood Count 3.13 M/mm3 (3.65-5.03); Red Cell Distribution Width 19.5 % (13.2-15.2)
[2019-03-07 10:17] LABS: Band Neutrophils # (Manual) 0.5 K/mm3; Eosinophils % (Manual) 0 % (0.0-4.3); Total Cells Counted 100
[2019-03-07 10:18] LABS: Anisocytosis 1+; Platelet Estimate Consistent w Auto
[2019-03-07] MEDS: SODIUM CHLORIDE FLUSH SYRINGE 10 ML IV SCH ×2 (10:58→21:55)
[2019-03-07] MEDS: PROTONIX IV SCH ×2 (10:58→21:54)
[2019-03-07] MEDS ORDERED: HEPARIN IV ONE (11:15)
--- NOTE | 2019-03-07 13:42 | Consultation ---
History of Present Illness Consult date: 03/07/19 Consult reason: congestive heart failure History of present illness: This is a 68 year old woman who was admitted to this hospital 02/03 with abdo raul pain, weakness and melena. At that time, her HCT was 7.1. It's reported she was taking Goody powder frequently prior to her admission. Patient was evaluated and underwent exploratory laparoscopy, right hemicolectomy for cecal volvulus and large bowel obstruction. During her recovery, the patient noted lethargic and hypotensive, found with ruptured infrarenal AAA. Subsequently transferred to [facility] for further management and underwent open repair of ruptured abdominal aortic aneurysm, then completion of total abdominal collectomy, abdominal washout and end ileostomy on 02/24/19. After the patient was stabilize, she was transferred back to [facility] for continued management. A cardiac consultation has been requested for CHF. An echocardiogram done 02/04/19 revealed a moderately decreased left systolic function, ejection fraction 20-25%. An echocardiogram was repeated at [place] 03/06/19 with reports of a mildly decreased left ventricular systolic function, ejection fraction of 40- 45%. Patient is resting in bed, nonverbal, on Bipap therapy. There is no ECG av ailable but stable sinus rhythm on telemetry. Medications and Allergies Allergies Allergy/AdvReac Type Severity Reaction Status Date / Time No Known Allergies Allergy Unverified 02/03/19 18:28 Home Medications Medication Instructions Recorded Confirmed Last Taken Type Arformoterol Nebu [Brovana Nebu] 15 mcg IH Q12HRT ml 02/20/19 Unknown Rx Budesonide [Pulmicort Respules] 0.5 mg IH Q12HRT nebu 02/20/19 Unknown Rx Ipratropium/Albuterol Sulfate 1 ampul IH Q6HRT ampul.neb 02/20/19 Unknown Rx [DUONEB *Not for PRN Use*] Pantoprazole [Protonix INJ] 40 mg IV BID vial 02/20/19 Unknown Rx Petrolatum,White [Vaseline Lip 1 applic TP Q2HR PRN tube 02/20/19 Unknown Rx Therapy] methylPREDNISolone Sod Suc 60 mg IV Q8H vial 02/20/19 Unknown Rx [Solu-MEDROL] Active Meds: Active Medications Acetaminophen (Tylenol) 650 mg PO Q4H PRN PRN Reason: Pain MILD(1-3)/Fever >100.5/DOMINGUEZ Last Admin: 03/07/19 07:34 Dose: 650 mg Documented by: Albuterol (Proventil) 2.5 mg IH Q4HRT PRN PRN Reason: Shortness Of Breath Arformoterol Tartrate (Brovana Nebu) 15 mcg IH Q12HRT [facility] Budesonide (Pulmicort) 0.5 mg IH Q12HRT [facility] Hydrophilic Ointment (Vaseline Lip Therapy) 1 applic TP Q2HR PRN PRN Reason: Dry Lips Heparin Sodium/Sodium Chloride (Heparin/ 0.45% Nacl-25,000 Unit/500 Ml) 25,000 unit in 500 mls @ 14.28 mls/hr IV TITR [facility]; Protocol Last Titration: 03/07/19 11:27 Dose: 816 units/hr, 16.32 mls/hr Documented by: Cefepime HCl (Maxipime/Ns 2 Gm/100 Ml) 2 gm in 100 mls @ 200 mls/hr IV Q8HR [facility]; Protocol Last Admin: 03/07/19 07:33 Dose: 200 mls/hr Documented by: Morphine Sulfate (Morphine) 2 mg IV Q4H PRN PRN Reason: Pain, Moderate (4-6) Ondansetron HCl (Zofran) 4 mg IV Q8H PRN PRN Reason: Nausea And Vomiting Oxycodone/Acetaminophen (Percocet 5/325) 1 tab PO Q6H PRN PRN Reason: Pain, Moderate (4-6) Pantoprazole Sodium (Protonix) 40 mg IV BID [facility] Last Admin: 03/07/19 10:58 Dose: 40 mg Documented by: Sodium Chloride (Sodium Chloride Flush Syringe 10 Ml) 10 ml IV BID [facility] Last Admin: 03/07/19 10:58 Dose: 10 ml Documented by: Sodium Chloride (Sodium Chloride Flush Syringe 10 Ml) 10 ml IV PRN PRN PRN Reason: LINE FLUSH Physical Examination Vital Signs Pulse Ox 95 03/06/19 23:21 General appearance: no acute distress Cardiac: Positive: Reg Rate and Rhythm Results 03/07/19 07:56 03/07/19 07:56 Cardiac Enzymes 03/07/19 Range/Units 07:56 AST 22 (5-40) units/L Coagulation 06/19/19 Range/Units 23:52 PT 14.6 (12.2-14.9) Sec. INR 1.17 H (0.87-1.13) APTT 34.8 (24.2-36.6) Sec. CBC 19 03/07/19 Range/Units 23:52 07:56 WBC 17.1 H (4.5-11.0) K/mm3 RBC 3.13 L (3.65-5.03) M/mm3 Hgb 9.0 L 9.5 L (10.1-14.3) gm/dl Hct 27.6 L 30.1 L (30.3-42.9) % Plt Count 312 348 (140-440) K/mm3 Comprehensive Metabolic Panel 03/07/19 Range/Units 07:56 Sodium 141 (137-145) mmol/L Potassium 5.0 (3.6-5.0) mmol/L Chloride 110.7 H (98-107) mmol/L Carbon Dioxide 21 L (22-30) mmol/L BUN 21 H (7-17) mg/dL Creatinine 0.2 L (0.7-1.2) mg/dL Glucose 63 L (65-100) mg/dL Calcium 9.6 (8.4-10.2) mg/dL AST 22 (5-40) units/L ALT 22 (7-56) units/L Alkaline Phosphatase 253 H (35-129) units/L Total Protein 5.4 L (6.3-8.2) g/dL Albumin 2.0 L (3.9-5) g/dL
[2019-03-07] MEDS: BROVANA NEBU IH SCH ×2 (13:54→20:25)
[2019-03-07] MEDS: PULMICORT IH SCH ×2 (13:55→20:25)
--- NOTE | 2019-03-07 14:00 | Event Note ---
Date: 03/07/19 The patient is chronically ill-appearing, cachectic 68-year-old woman with multiple severe comorbidities. She was in this hospital 2 weeks ago with respiratory failure, sepsis, severe anemia and ultimately found with a ruptured abdominal aortic aneurysm. She was transferred to [facility] for urgent repair of the aneurysm, and then yesterday was returned to this hospital, ostensibly to continue her clinical rehabilitation. Cardiology consultation is requested for "CHF". My review of the chest x-ray shows a mild cardiomegaly, but more significantly patchy bilateral interstitial infiltrates that is more likely suggestive of bilateral pneumonia. ECG review from the previous admission 2 weeks ago showed a sinus rhythm with inferolateral ST depression, changes suggestive of ischemia at the time. I do not see any record of cardiology consultation at the time or further assessment of the ECG abnormality. A current ECG on this presentation is pending. Recommendations: We will get a 12-lead EKG, as well as an echocardiogram for left ventricular function assessment. Cardiac medical therapy will be based on LV function assessment. We will defer to pulmonary medicine for further evaluation and management of bilateral pneumonia.
[2019-03-07] MEDS: D50W (25GM) Syringe IV PRN (14:10)
--- NOTE | 2019-03-07 14:28 | Consultation ---
History of Present Illness - Reason for Consult Consult date: 03/07/19 fever Requesting physician: KWAN JOHNSON - History of Present Illness 68 y/o female with history of CHF, COPD and a recent prolonged hospitalization on 02/03/2019-02/20/2019 due to altered mental status, respiratory distress and bowel obstruction with volvulus. On 02/11/2019, she underwent an exploratory laparotomy and right hemicolectomy, she developed persistent leukocytosis with elevated lactate likely due to bilateral pneumonia HCAP with acute respiratory failure. Intra-abdominal abscess ruled out by CT 02/17/2019. Of note, patient also on steroids. Treated with cefepime and vancomycin for 5 days. Unfortunately, on 02/20/19 she became acutely short of breath and hypotensive and dropped her hemoglobin. CT angiogram revealed ruptured 5 cm infrarenal AAA. She was transferred to [place]. She received AAA repair at [place] on 02/21/19, has a maintained on heparin drip then transferred back to [facility]. She was also to have a nonocclusive subacute to chronic DVT of bi lateral lower extremities. She was found to have melena on 02/23, underwent flexible sigmoidoscopy and EGD followed by exploratory laparoscopy and completion of total colectomy, abdominal washout and end ileostomy on 02/24. 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 She was [facility]. ID consulted for new fever 102.2. On admission, temp 98.7, HR 109, R41, BP98/48. WBC 17. Hg 9.6. Plat 312. Creat 0.2. Blood cultures 03/06/2019 no growth. CXR bilateral infiltrates. Review of Systems: somnolent unable to talk Medications and Allergies Allergies Allergy/AdvReac Type Severity Reaction Status Date / Time No Known Allergies Allergy Unverified 02/03/19 18:28 Home Medications Medication Instructions Recorded Confirmed Last Taken Type Arformoterol Nebu [Brovana Nebu] 15 mcg IH Q12HRT ml 02/20/19 Unknown Rx Budesonide [Pulmicort Respules] 0.5 mg IH Q12HRT nebu 02/20/19 Unknown Rx Ipratropium/Albuterol Sulfate 1 ampul IH Q6HRT ampul.neb 02/20/19 Unknown Rx [DUONEB *Not for PRN Use*] Pantoprazole [Protonix INJ] 40 mg IV BID vial 02/20/19 Unknown Rx Petrolatum,White [Vaseline Lip 1 applic TP Q2HR PRN tube 02/20/19 Unknown Rx Therapy] methylPREDNISolone Sod Suc 60 mg IV Q8H vial 02/20/19 Unknown Rx [Solu-MEDROL] Active Meds: Active Medications Acetaminophen (Tylenol) 650 mg PO Q4H PRN PRN Reason: Pain MILD(1-3)/Fever >100.5/DOMINGUEZ Last Admin: 03/07/19 07:34 Dose: 650 mg Documented by: Albuterol (Proventil) 2.5 mg IH Q4HRT PRN PRN Reason: Shortness Of Breath Arformoterol Tartrate (Brovana Nebu) 15 mcg IH Q12HRT JOEL Last Admin: 03/07/19 13:54 Dose: Not Given Documented by: Budesonide (Pulmicort) 0.5 mg IH Q12HRT JOEL Last Admin: 03/07/19 13:55 Dose: Not Given Documented by: Dextrose (D50w (25gm) Syringe) 50 ml IV PRN PRN PRN Reason: Hypoglycemia Last Admin: 03/07/19 14:10 Dose: 50 ml Documented by: Hydrophilic Ointment (Vaseline Lip Therapy) 1 applic TP Q2HR PRN PRN Reason: Dry Lips Heparin Sodium/Sodium Chloride (Heparin/ 0.45% Nacl-25,000 Unit/500 Ml) 25,000 unit in 500 mls @ 14.28 mls/hr IV TITR [facility]; Protocol Last Titration: 03/07/19 11:27 Dose: 816 units/hr, 16.32 mls/hr Documented by: Cefepime HCl (Maxipime/Ns 2 Gm/100 Ml) 2 gm in 100 mls @ 200 mls/hr IV Q8HR JOEL; Protocol Last Admin: 03/07/19 14:10 Dose: 200 mls/hr Documented by: Morphine Sulfate (Morphine) 2 mg IV Q4H PRN PRN Reason: Pain, Moderate (4-6) Ondansetron HCl (Zofran) 4 mg IV Q8H PRN PRN Reason: Nausea And Vomiting Oxycodone/Acetaminophen (Percocet 5/325) 1 tab PO Q6H PRN PRN Reason: Pain, Moderate (4-6) Pantoprazole Sodium (Protonix) 40 mg IV BID [facility] Last Admin: 03/07/19 10:58 Dose: 40 mg Documented by: Sodium Chloride (Sodium Chloride Flush Syringe 10 Ml) 10 ml IV BID [facility] Last Admin: 03/07/19 10:58 Dose: 10 ml Documented by: Sodium Chloride (Sodium Chloride Flush Syringe 10 Ml) 10 ml IV PRN PRN PRN Reason: LINE FLUSH Physical Examination - Physical Exam Narrative exam: General appearance: somnolent in mod resp distress cachectic Eyes: anicteric sclerae, moist conjunctivae; no lid-lag; PERRLA HENT: Atraumatic; oropharynx with BIPAP Neck: Trachea midline; supple, no thyromegaly or lymphadenopathy Lungs: gab coarse breath sounds CV: RRR no murmur Abdomen: Soft, midlien surg wound with val, distended iliostomy and DANIELA drain Extremities:cachexia Skin: Normal temperature, turgor and texture; no rash, ulcers or subcutaneous nodules Psych: somnolent. Neuro: somnolent - Constitutional Vitals: Vital Signs Temp Pulse Resp BP Pulse Ox 99.4 F 101 H 26 H 110/47 100 03/07/19 08:00 03/07/19 09:30 03/07/19 09:30 03/07/19 14:00 03/07/19 14:00 Temperature -Last 24 Hours Temperature 99.4 F Temperature 99.2 F Temperature 101.2 F Temperature 98.9 F Temperature 98.7 F Results - Labs CBC & Chem 7: 03/07/19 07:56 03/07/19 07:56 Labs: Abnormal lab results 03/06/19 03/06/19 03/07/19 Range/Units 23:52 23:52 05:57 WBC (4.5-11.0) K/mm3 RBC (3.65-5.03) M/mm3 Hgb 9.0 L (10.1-14.3) gm/dl Hct 27.6 L (30.3-42.9) % RDW (13.2-15.2) % Seg Neuts % (Manual) (40.0-70.0) % Lymphocytes % (Manual) (13.4-35.0) % Seg Neutrophils # Man (1.8-7.7) K/mm3 Lymphocytes # (Manual) (1.2-5.4) K/mm3 Basophils # (Manual) (0.0-0.1) K/mm3 INR 1.17 H (0.87-1.13) Heparin Anti-Xa Level (0.3-0.7) U.I./ml POC ABG pH 7.249 L (7.35-7.45) POC ABG pCO2 49.2 H (35-45) POC ABG pO2 73 L (80-105) Chloride (98-107) mmol/L Carbon Dioxide (22-30) mmol/L BUN (7-17) mg/dL Creatinine (0.7-1.2) mg/dL Glucose (65-100) mg/dL Alkaline Phosphatase (35-129) units/L Total Protein (6.3-8.2) g/dL Albumin (3.9-5) g/dL 03/07/19 03/07/19 03/07/19 Range/Units 07:19 07:56 07:56 WBC 17.1 H (4.5-11.0) K/mm3 RBC 3.13 L (3.65-5.03) M/mm3 Hgb 9.5 L (10.1-14.3) gm/dl Hct 30.1 L (30.3-42.9) % RDW 19.5 H (13.2-15.2) % Seg Neuts % (Manual) 91.0 H (40.0-70.0) % Lymphocytes % (Manual) 3.0 L (13.4-35.0) % Seg Neutrophils # Man 15.6 H (1.8-7.7) K/mm3 Lymphocytes # (Manual) 0.5 L (1.2-5.4) K/mm3 Basophils # (Manual) 0.2 H (0.0-0.1) K/mm3 INR (0.87-1.13) Heparin Anti-Xa Level < 0.10 L (0.3-0.7) U.I./ml POC ABG pH (7.35-7.45) POC ABG pCO2 (35-45) POC ABG pO2 (80-105) Chloride 110.7 H (98-107) mmol/L Carbon Dioxide 21 L (22-30) mmol/L BUN 21 H (7-17) mg/dL Creatinine 0.2 L (0.7-1.2) mg/dL Glucose 63 L (65-100) mg/dL Alkaline Phosphatase 253 H (35-129) units/L Total Protein 5.4 L (6.3-8.2) g/dL Albumin 2.0 L (3.9-5) g/dL Assessment and Plan Cultures: Blood cultures 03/06/2019 no growth Assessment: 68 y/o female with history of CHF, COPD and a recent prolonged hospitalization on 02/03/2019-02/20/2019 due to altered mental status, respiratory distress and bowel obstruction with volvulus she underwent an exploratory laparotomy and right hemicolectomy on 02/11/2019, developed persistent leukocytosis with elevated lactate likely due to bilateral pneumonia HCAP with acute respiratory failure treated with cefepime and vancomycin for 5 days. Unfortunately, on 02/20/19 she became acutely short of breath and hypotensive and dropped her hemoglobin. CT angiogram revealed ruptured 5 cm infrarenal AAA. She was transferred to [place]. She received AAA repair at [place] on 02/21/19, has a maintained on heparin drip. She was also to have a nonocclusive subacute to chronic DVT of bilateral lower extremities. She was found to have melena on 02/23, underwent flexible sigmoidoscopy and EGD followed by exploratory laparoscopy and completion of total colectomy, abdominal washout and end ileostomy on 02/24. 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 She was transferred back to [facility]. ID consulted for new fever 102.2. 1) Severe Sepsis: Present on admission, manifested by fever, hypotension, tachy cardia, leukocytosis. Etiology most likely HAP +/- other possibilities?. 2) HAP: prolonged complicated hospital stay in [facility] and [place]. S/p recent otal colectomy, abdominal washout and end ileostomy on 02/24. 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 CXR bilateral infiltrates. 3) GI bleed 4) Volvulus 5) Severe malnutrition Recommendations: - follow-up blood cultures - obtain UA and urine culture - obtain sputum culture as possible - check MRSA PCR - get [facility] micro records - continue cefepime and add vancomcyin with PK consult - continue contact isolation Guarded prognosis Will follow. Judy Desai MD Infectious Diseases [facility] M [phone]
[2019-03-07] MEDS ORDERED: .VANCOMYCIN VIAL 1,000 MG in NACL 0.9% 100 ML IV SCH (16:00)
--- NOTE | 2019-03-07 17:21 | Progress Note ---
Subjective Date of service: 03/07/19 Objective Vital Signs - 12hr 03/07/19 03/07/19 03/07/19 05:47 06:00 08:00 Temperature 99.2 F 99.4 F Pulse Rate 109 H Pulse Rate [ 100 H Right Middle Lobe] Respiratory 41 H Rate Respiratory 25 H Rate [Right Middle Lobe] Blood Pressure 98/48 O2 Sat by Pulse 95 Oximetry 03/07/19 03/07/19 03/07/19 09:30 10:00 10:15 Temperature Pulse Rate 101 H 92 H Pulse Rate [ 100 H Right Middle Lobe] Respiratory 26 H Rate Respiratory 26 H Rate [Right Middle Lobe] Blood Pressure 100/39 O2 Sat by Pulse 100 Oximetry 03/07/19 03/07/19 14:00 17:15 Temperature Pulse Rate 92 H Pulse Rate [ Right Middle Lobe] Respiratory 26 H Rate Respiratory Rate [Right Middle Lobe] Blood Pressure 110/47 118/57 O2 Sat by Pulse 100 100 Oximetry CBC and BMP: 03/07/19 07:56 03/07/19 07:56 ABG, PT/INR, D-dimer: ABG POC ABG pH 7.317 (7.35-7.45) L 03/07/19 14:13 POC ABG pCO2 34.3 (35-45) L 03/07/19 14:13 POC ABG pO2 50 (80-105) L 03/07/19 14:13 POC ABG HCO3 17.5 (22-26 mml/L) 03/07/19 14:13 POC ABG Total CO2 19 (23-27mmol/L) 03/07/19 14:13 POC ABG O2 Sat 82 03/07/19 14:13 PT/INR, D-dimer PT 14.6 Sec. (12.2-14.9) 03/06/19 23:52 INR 1.17 (0.87-1.13) H 03/06/19 23:52 Abnormal lab findings: Abnormal Labs 03/06/19 03/06/19 03/07/19 23:52 23:52 05:57 WBC RBC Hgb 9.0 L Hct 27.6 L RDW Seg Neuts % (Manual) Lymphocytes % (Manual) Seg Neutrophils # Man Lymphocytes # (Manual) Basophils # (Manual) INR 1.17 H Heparin Anti-Xa Level POC ABG pH 7.249 L POC ABG pCO2 49.2 H POC ABG pO2 73 L Chloride Carbon Dioxide BUN Creatinine Glucose Alkaline Phosphatase C-Reactive Protein Total Protein Albumin 03/07/19 03/07/19 03/07/19 07:19 07:56 07:56 WBC 17.1 H RBC 3.13 L Hgb 9.5 L Hct 30.1 L RDW 19.5 H Seg Neuts % (Manual) 91.0 H Lymphocytes % (Manual) 3.0 L Seg Neutrophils # Man 15.6 H Lymphocytes # (Manual) 0.5 L Basophils # (Manual) 0.2 H INR Heparin Anti-Xa Level < 0.10 L POC ABG pH POC ABG pCO2 POC ABG pO2 Chloride 110.7 H Carbon Dioxide 21 L BUN 21 H Creatinine 0.2 L Glucose 63 L Alkaline Phosphatase 253 H C-Reactive Protein Total Protein 5.4 L Albumin 2.0 L 03/07/19 03/07/19 14:13 15:25 WBC RBC Hgb Hct RDW Seg Neuts % (Manual) Lymphocytes % (Manual) Seg Neutrophils # Man Lymphocytes # (Manual) Basophils # (Manual) INR Heparin Anti-Xa Level POC ABG pH 7.317 L POC ABG pCO2 34.3 L POC ABG pO2 50 L Chloride Carbon Dioxide BUN Creatinine Glucose Alkaline Phosphatase C-Reactive Protein 27.00 H Total Protein Albumin
[2019-03-07] MEDS: VANCOMYCIN 500 MG in NACL 0.9% 100 ML IV SCH (17:25)
--- NOTE | 2019-03-07 17:37 | Consultation ---
History of Present Illness - Reason for Consult Consult date: 03/07/19 Follow up of ruptured AAA, repaired at an outside facility - History of Present Illness This pt is a poor historian as she is currently on C-pap, and nonverbal during my evaluation. Therefore, the history has been taken from the medical record. This pt is a 68yo WF admitted on 03/06/19 as a direct transfer back from [facility]. This pt was recently admitted to [facility] encephalopathic (02/03/19-02/20/19). She was worked up, and later taken for an Exploratory laporatomy. 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 In the post-operative period, the pt was noted to have a ruptured ~5cm AAA. The pt was transferred to the tertiary care center for further care. She apparently underwent an open repair of her ruptured abdominal aortic aneurysm (suspect tube graft due to the lack of femoral incisions), then a completion of total abdominal collectomy, as well as an abdominal washout, and end ileostomy on 02/24/19. Once postoperatively medically stabilized, she was subsequently transferred back to [facility]. A vascular surgery consult is now requested to further evaluate. When questioned, the pt was slow to respond, and responded only to a single question. She nodded "No" when asked if she was in any discomfort. Past History Past Medical History: COPD, heart failure, hypertension, other (H/o GI bleed,) Past Surgical History: Other (multiple recent abd surgeries: Right hemicolectomy later converted to total colectomy with ileostomy, Open repair of ruptured AAA) Social history: , lives with family Family history: no significant family history (none listed) Medications and Allergies Allergies Allergy/AdvReac Type Severity Reaction Status Date / Time No Known Allergies Allergy Unverified 02/03/19 18:28 Home Medications Medication Instructions Recorded Confirmed Last Taken Type Arformoterol Nebu [Brovana Nebu] 15 mcg IH Q12HRT ml 02/20/19 Unknown Rx Budesonide [Pulmicort Respules] 0.5 mg IH Q12HRT nebu 02/20/19 Unknown Rx Ipratropium/Albuterol Sulfate 1 ampul IH Q6HRT ampul.neb 02/20/19 Unknown Rx [DUONEB *Not for PRN Use*] Pantoprazole [Protonix INJ] 40 mg IV BID vial 02/20/19 Unknown Rx Petrolatum,White [Vaseline Lip 1 applic TP Q2HR PRN tube 02/20/19 Unknown Rx Therapy] methylPREDNISolone Sod Suc 60 mg IV Q8H vial 02/20/19 Unknown Rx [Solu-MEDROL] Active Meds: Active Medications Acetaminophen (Tylenol) 650 mg PO Q4H PRN PRN Reason: Pain MILD(1-3)/Fever >100.5/DOMINGUEZ Last Admin: 03/07/19 07:34 Dose: 650 mg Documented by: Albuterol (Proventil) 2.5 mg IH Q4HRT PRN PRN Reason: Shortness Of Breath Arformoterol Tartrate (Brovana Nebu) 15 mcg IH Q12HRT JOEL Last Admin: 03/07/19 13:54 Dose: Not Given Documented by: Budesonide (Pulmicort) 0.5 mg IH Q12HRT JOEL Last Admin: 03/07/19 13:55 Dose: Not Given Documented by: Dextrose (D50w (25gm) Syringe) 50 ml IV PRN PRN PRN Reason: Hypoglycemia Last Admin: 03/07/19 14:10 Dose: 50 ml Documented by: Hydrophilic Ointment (Vaseline Lip Therapy) 1 applic TP Q2HR PRN PRN Reason: Dry Lips Heparin Sodium/Sodium Chloride (Heparin/ 0.45% Nacl-25,000 Unit/500 Ml) 25,000 unit in 500 mls @ 14.28 mls/hr IV TITR [facility]; Protocol Last Titration: 03/07/19 11:27 Dose: 816 units/hr, 16.32 mls/hr Documented by: Cefepime HCl (Maxipime/Ns 2 Gm/100 Ml) 2 gm in 100 mls @ 200 mls/hr IV Q8HR JOEL; Protocol Last Admin: 03/07/19 14:10 Dose: 200 mls/hr Documented by: Vancomycin HCl 500 mg/ Sodium (Chloride) 110 mls @ 55 mls/hr IV Q12H JOEL Last Admin: 03/07/19 17:25 Dose: 55 mls/hr Documented by: Morphine Sulfate (Morphine) 2 mg IV Q4H PRN PRN Reason: Pain, Moderate (4-6) Ondansetron HCl (Zofran) 4 mg IV Q8H PRN PRN Reason: Nausea And Vomiting Oxycodone/Acetaminophen (Percocet 5/325) 1 tab PO Q6H PRN PRN Reason: Pain, Moderate (4-6) Pantoprazole Sodium (Protonix) 40 mg IV BID [facility] Last Admin: 03/07/19 10:58 Dose: 40 mg Documented by: Sodium Chloride (Sodium Chloride Flush Syringe 10 Ml) 10 ml IV BID [facility] Last Admin: 03/07/19 10:58 Dose: 10 ml Documented by: Sodium Chloride (Sodium Chloride Flush Syringe 10 Ml) 10 ml IV PRN PRN PRN Reason: LINE FLUSH Review of Systems ROS unobtainable: due to mental status Exam - Constitutional Vitals: Temp Pulse Resp BP Pulse Ox 99.4 F 92 H 26 H 118/57 100 03/07/19 08:00 03/07/19 17:15 03/07/19 17:15 03/07/19 17:15 03/07/19 17:15 General appearance: Present: no acute distress - EENT Eyes: Present: EOM intact ENT: hearing intact - Neck Neck: Present: supple - Respiratory Respiratory effort: labored (on c-pap) - Extremities Extremities: abnormal (cool, but appear adequately perfused. She has palpable femoral pulses bilat. She has palpable radial pulses bilat, she has palpable DP bilat (though left is easier to palpate than the right).) - Psychiatric Psychiatric: no appropriate mood/affect (somnolent), no intact judgment & insight Results - Labs CBC & Chem 7: 03/07/19 07:56 03/07/19 07:56 Labs: Abnormal lab results 03/06/19 03/06/19 03/07/19 Range/Units 23:52 23:52 05:57 WBC (4.5-11.0) K/mm3 RBC (3.65-5.03) M/mm3 Hgb 9.0 L (10.1-14.3) gm/dl Hct 27.6 L (30.3-42.9) % RDW (13.2-15.2) % Seg Neuts % (Manual) (40.0-70.0) % Lymphocytes % (Manual) (13.4-35.0) % Seg Neutrophils # Man (1.8-7.7) K/mm3 Lymphocytes # (Manual) (1.2-5.4) K/mm3 Basophils # (Manual) (0.0-0.1) K/mm3 INR 1.17 H (0.87-1.13) Heparin Anti-Xa Level (0.3-0.7) U.I./ml POC ABG pH 7.249 L (7.35-7.45) POC ABG pCO2 49.2 H (35-45) POC ABG pO2 73 L (80-105) Chloride (98-107) mmol/L Carbon Dioxide (22-30) mmol/L BUN (7-17) mg/dL Creatinine (0.7-1.2) mg/dL Glucose (65-100) mg/dL Alkaline Phosphatase (35-129) units/L C-Reactive Protein (0.00-1.30) mg/dL Total Protein (6.3-8.2) g/dL Albumin (3.9-5) g/dL 03/07/19 03/07/19 03/07/19 Range/Units 07:19 07:56 07:56 WBC 17.1 H (4.5-11.0) K/mm3 RBC 3.13 L (3.65-5.03) M/mm3 Hgb 9.5 L (10.1-14.3) gm/dl Hct 30.1 L (30.3-42.9) % RDW 19.5 H (13.2-15.2) % Seg Neuts % (Manual) 91.0 H (40.0-70.0) % Lymphocytes % (Manual) 3.0 L (13.4-35.0) % Seg Neutrophils # Man 15.6 H (1.8-7.7) K/mm3 Lymphocytes # (Manual) 0.5 L (1.2-5.4) K/mm3 Basophils # (Manual) 0.2 H (0.0-0.1) K/mm3 INR (0.87-1.13) Heparin Anti-Xa Level < 0.10 L (0.3-0.7) U.I./ml POC ABG pH (7.35-7.45) POC ABG pCO2 (35-45) POC ABG pO2 (80-105) Chloride 110.7 H (98-107) mmol/L Carbon Dioxide 21 L (22-30) mmol/L BUN 21 H (7-17) mg/dL Creatinine 0.2 L (0.7-1.2) mg/dL Glucose 63 L (65-100) mg/dL Alkaline Phosphatase 253 H (35-129) units/L C-Reactive Protein (0.00-1.30) mg/dL Total Protein 5.4 L (6.3-8.2) g/dL Albumin 2.0 L (3.9-5) g/dL 03/07/19 03/07/19 Range/Units 14:13 15:25 WBC (4.5-11.0) K/mm3 RBC (3.65-5.03) M/mm3 Hgb (10.1-14.3) gm/dl Hct (30.3-42.9) % RDW (13.2-15.2) % Seg Neuts % (Manual) (40.0-70.0) % Lymphocytes % (Manual) (13.4-35.0) % Seg Neutrophils # Man (1.8-7.7) K/mm3 Lymphocytes # (Manual) (1.2-5.4) K/mm3 Basophils # (Manual) (0.0-0.1) K/mm3 INR (0.87-1.13) Heparin Anti-Xa Level (0.3-0.7) U.I./ml POC ABG pH 7.317 L (7.35-7.45) POC ABG pCO2 34.3 L (35-45) POC ABG pO2 50 L (80-105) Chloride (98-107) mmol/L Carbon Dioxide (22-30) mmol/L BUN (7-17) mg/dL Creatinine (0.7-1.2) mg/dL Glucose (65-100) mg/dL Alkaline Phosphatase (35-129) units/L C-Reactive Protein 27.00 H (0.00-1.30) mg/dL Total Protein (6.3-8.2) g/dL Albumin (3.9-5) g/dL Assessment and Plan This pt has required a prolonged hospitalization between 2 facilities ([facility], and [facility]). She under went multiple surgeries including a Right hemicolectomy later converted to a total colectomy with ileostomy (secondary to a cecal volvulus/large bowel obstruction), as well as an open repair of a ruptured AAA. The pt was subsequently stablized, and transferred back to [facility]. She is only minimally responsive, on c-pap. Her systolic BP is ~100 at the bedside. Review of the medical record, suggest concerns of possible pneumonia. A vascular surgery consult is request to follow up for her ruptured AAA. The details of her surgical repair are not available at this time for review. Her abdomen is soft. She denies any discomfort. She has palpable femoral pulses, and her feet though slightly cool appear to be adequately perfused. She reportedly was noted to have 'subacute or chronic nonocclusive bilateral lower extremity DVT' while at [place]. The extent of the DVT is not specified. She is on a Heparin drip. She appears to be tolerating anticoagulation at this point, but had a recent GI bleed by report. She is not currently on any antiplatelet or statin therapy currently. Depending on whether she remains of anticoagulation, antiplatelet therapy could be added if and when it is safe to do so. If the DVTs are chronic then she likely would not need to continue anticoagulation. The Hospitalist service have recommended Hospice care, and will discuss with the pt's family. No vascular surgery intervention recommended at this point. - Patient Problems (1) Status post AAA (abdominal aortic aneurysm) repair Current Visit: Yes Status: Acute (2) History of ruptured arterial aneurysm Current Visit: Yes Status: Acute (3) Status post total colectomy Current Visit: Yes Status: Acute (4) Acute respiratory failure Current Visit: No Status: Acute (5) Altered mental status Current Visit: No Status: Acute (6) CHF exacerbation Current Visit: No Status: Acute (7) COPD exacerbation Current Visit: No Status: Acute (8) Cecal volvulus Current Visit: No Status: Acute (9) Pneumonia Current Visit: No Status: Acute (10) DVT (deep venous thrombosis) Current Visit: Yes Status: Suspected
[2019-03-07 19:12] LABS: Bacteria,Urine 4+ /HPF (Negative); Bilirubin,Urine NEG (Negative); Blood,Urine MOD (Negative); Color,Urine Amber (Yellow); Hyaline Casts,Urine 10 /LPF; Mucus,Urine 3+ /HPF; RBC,Urine > 182.0 /HPF (0.0-6.0); Urobilinogen,Urine < 2.0 mg/dL (<2.0)
[2019-03-07] MEDS: MORPHINE IV PRN (21:55)
[2019-03-08 03:20] LABS: Hematocrit 26.9 % (30.3-42.9); Hemoglobin 8.7 gm/dl (10.1-14.3); Mean Corpuscular HGB Conc 32 % (30-34); Mean Corpuscular Volume 94 fl (79-97); Platelet Count 337 K/mm3 (140-440); Red Blood Count 2.85 M/mm3 (3.65-5.03); Red Cell Distribution Width 18.2 % (13.2-15.2)
[2019-03-08 03:23] LABS: BUN/Creatinine Ratio 110; Blood Urea Nitrogen 33 mg/dL (7-17); Calcium 9.9 mg/dL (8.4-10.2); Hemolysis Index 3
[2019-03-08] MEDS: VANCOMYCIN 500 MG in NACL 0.9% 100 ML IV SCH ×2 (04:36→16:26)
[2019-03-08] MEDS: HEPARIN/ 0.45% NACL-25,000 UNIT/500 ML 25,000 UNIT/500 ML BAG IV SCH (04:36)
[2019-03-08] MEDS: MAXIPIME/NS 2 GM/100 ML 2 GM/100 ML BAG IV SCH ×2 (07:07→18:02)
[2019-03-08] MEDS: PULMICORT IH SCH ×3 (08:59→20:49)
[2019-03-08] MEDS: BROVANA NEBU IH SCH ×2 (09:19→20:49)
--- NOTE | 2019-03-08 09:59 | Progress Note ---
Assessment and Plan Pt's paper chart contained a portion of the [facility] medical record. This was reviewed. Pt's contained ruptured AAA was repaired on 02/21/19 with a 16mm tube graft. She subsequently developed melena 2 days later. A Flex sig and EGD were perfor med. With concerns of mesenteric ischemia, she was taken back and for an Ex Lap, and the completion of the Total abdominal collectomy , abd washout, and end ileostomy were performed (02/24/19). A venous duplex (02/21/19) was positive for Non-occlusive subacute to chronic DVT of the SFV bilaterally. No other vessel involvement noted. A CTA of the chest (02/21/19) for LLL segmental Pulmonary embolus. No evidence of right heart strain per CT. Given no previous mention of h/o DVT, her initial insult (where the pt was found down unable to get to her feet for a period of time) happened approximately 4 weeks prior to this duplex, and the additional finding of LLL PE. We can not assume these thrombotic events are old and unrelated. Would continue anticoagulation with the Heparin drip for now as tolerated. She can be convert to an oral agent at a later time. Hemoglobin 8.7 this am. Supportive care in progress. ?nutritional support, pt does not appear alert enough to tolerate po diet. ID service following and treating with abx. 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 Prognosis guarded Hospitalist to discuss proposed Hospice care with the family. - Patient Problems (1) Status post AAA (abdominal aortic aneurysm) repair Current Visit: Yes Status: Acute (2) History of ruptured arterial aneurysm Current Visit: Yes Status: Acute (3) Status post total colectomy Current Visit: Yes Status: Acute (4) DVT (deep venous thrombosis) Current Visit: Yes Status: Suspected (5) Pulmonary embolus, left Current Visit: Yes Status: Acute (6) Acute respiratory failure Current Visit: No Status: Acute (7) Altered mental status Current Visit: No Status: Acute (8) CHF exacerbation Current Visit: No Status: Acute (9) COPD exacerbation Current Visit: No Status: Acute (10) Cecal volvulus Current Visit: No Status: Acute (11) Pneumonia Current Visit: No Status: Acute Subjective Date of service: 03/08/19 Interval history: Pt's eye closed upon entering the room. Eyes opened with loud verbal stimulus. Pt is non-verbal. She has a non-discript nodding of the head (neither a pure "yes" or "no") to questions. Objective - Constitutional Vitals: Vital Signs - 12hr 03/07/19 03/07/19 03/07/19 22:00 22:11 22:21 Temperature Pulse Rate 99 H 100 H 100 H Pulse Rate [ Anterior Bilateral Throughout] Respiratory 26 H 24 21 Rate Respiratory Rate [Anterior Bilateral Throughout] Blood Pressure 105/42 105/42 105/42 O2 Sat by Pulse 99 99 100 Oximetry 03/07/19 03/07/19 03/07/19 22:31 22:41 22:51 Temperature Pulse Rate 100 H 99 H 95 H Pulse Rate [ Anterior Bilateral Throughout] Respiratory 25 H 28 H 28 H Rate Respiratory Rate [Anterior Bilateral Throughout] Blood Pressure 105/42 105/42 105/42 O2 Sat by Pulse 99 100 100 Oximetry 03/07/19 03/07/19 03/07/19 23:00 23:09 23:11 Temperature Pulse Rate 98 H 96 H 98 H Pulse Rate [ Anterior Bilateral Throughout] Respiratory 24 21 23 Rate Respiratory Rate [Anterior Bilateral Throughout] Blood Pressure 107/63 107/63 107/63 O2 Sat by Pulse 100 100 100 Oximetry 03/07/19 03/07/19 03/07/19 23:21 23:22 23:31 Temperature 98.8 F Pulse Rate 98 H 97 H Pulse Rate [ Anterior Bilateral Throughout] Respiratory 24 24 Rate Respiratory Rate [Anterior Bilateral Throughout] Blood Pressure 107/63 107/63 O2 Sat by Pulse 100 100 Oximetry 03/07/19 03/07/19 03/08/19 23:41 23:51 00:00 Temperature Pulse Rate 90 91 H 98 H Pulse Rate [ Anterior Bilateral Throughout] Respiratory 18 17 26 H Rate Respiratory Rate [Anterior Bilateral Throughout] Blood Pressure 107/63 107/63 113/63 O2 Sat by Pulse 100 100 100 Oximetry 03/08/19 03/08/19 03/08/19 00:10 00:20 00:31 Temperature Pulse Rate 90 98 H 94 H Pulse Rate [ Anterior Bilateral Throughout] Respiratory 17 24 23 Rate Respiratory Rate [Anterior Bilateral Throughout] Blood Pressure 113/63 113/63 107/63 O2 Sat by Pulse 100 100 100 Oximetry 03/08/19 03/08/19 03/08/19 00:41 00:51 01:00 Temperature Pulse Rate 89 98 H 95 H Pulse Rate [ Anterior Bilateral Throughout] Respiratory 22 25 H 26 H Rate Respiratory Rate [Anterior Bilateral Throughout] Blood Pressure 113/63 113/63 116/64 O2 Sat by Pulse 100 100 100 Oximetry 03/08/19 03/08/19 03/08/19 01:11 01:21 01:31 Temperature Pulse Rate 96 H 97 H 96 H Pulse Rate [ Anterior Bilateral Throughout] Respiratory 22 29 H 25 H Rate Respiratory Rate [Anterior Bilateral Throughout] Blood Pressure 113/63 113/63 113/63 O2 Sat by Pulse 100 100 100 Oximetry 03/08/19 03/08/19 03/08/19 01:41 01:51 02:00 Temperature Pulse Rate 96 H 96 H 95 H Pulse Rate [ Anterior Bilateral Throughout] Respiratory 26 H 25 H 26 H Rate Respiratory Rate [Anterior Bilateral Throughout] Blood Pressure 116/64 116/64 126/69 O2 Sat by Pulse 100 100 100 Oximetry 03/08/19 03/08/19 03/08/19 02:11 02:21 02:31 Temperature Pulse Rate 95 H 95 H 94 H Pulse Rate [ Anterior Bilateral Throughout] Respiratory 23 25 H 23 Rate Respiratory Rate [Anterior Bilateral Throughout] Blood Pressure 126/69 126/69 126/69 O2 Sat by Pulse 100 100 100 Oximetry 03/08/19 03/08/19 03/08/19 02:41 02:51 03:00 Temperature Pulse Rate 94 H 93 H 87 Pulse Rate [ Anterior Bilateral Throughout] Respiratory 25 H 26 H 22 Rate Respiratory Rate [Anterior Bilateral Throughout] Blood Pressure 126/69 126/69 108/58 O2 Sat by Pulse 100 100 100 Oximetry 03/08/19 03/08/19 03/08/19 03:11 03:21 03:31 Temperature Pulse Rate 86 93 H 93 H Pulse Rate [ Anterior Bilateral Throughout] Respiratory 21 22 20 Rate Respiratory Rate [Anterior Bilateral Throughout] Blood Pressure 108/58 108/58 108/58 O2 Sat by Pulse 100 100 100 Oximetry 03/08/19 03/08/19 03/08/19 03:34 03:41 03:51 Temperature 98.7 F Pulse Rate 84 91 H Pulse Rate [ Anterior Bilateral Throughout] Respiratory 24 22 Rate Respiratory Rate [Anterior Bilateral Throughout] Blood Pressure 108/58 108/58 O2 Sat by Pulse 100 100 Oximetry 03/08/19 03/08/1903/08/19 04:00 04:11 04:21 Temperature Pulse Rate 92 H 83 83 Pulse Rate [ Anterior Bilateral Throughout] Respiratory 23 22 29 H Rate Respiratory Rate [Anterior Bilateral Throughout] Blood Pressure 117/54 117/54 117/54 O2 Sat by Pulse 100 100 100 Oximetry 03/08/19 03/08/19 03/08/19 04:31 04:41 04:51 Temperature Pulse Rate 84 91 H 95 H Pulse Rate [ Anterior Bilateral Throughout] Respiratory 20 23 26 H Rate Respiratory Rate [Anterior Bilateral Throughout] Blood Pressure 117/54 117/54 117/54 O2 Sat by Pulse 100 100 100 Oximetry 03/08/19 03/08/19 03/08/19 05:00 05:11 05:21 Temperature Pulse Rate 91 H 84 89 Pulse Rate [ Anterior Bilateral Throughout] Respiratory 25 H 24 19 Rate Respiratory Rate [Anterior Bilateral Throughout] Blood Pressure 121/60 117/54 117/54 O2 Sat by Pulse 95 100 100 Oximetry 03/08/19 03/08/19 03/08/19 05:31 05:41 05:51 Temperature Pulse Rate 80 80 86 Pulse Rate [ Anterior Bilateral Throughout] Respiratory 20 16 20 Rate Respiratory Rate [Anterior Bilateral Throughout] Blood Pressure 117/54 117/54 117/54 O2 Sat by Pulse 100 100 100 Oximetry 03/08/19 03/08/19 03/08/19 06:00 08:00 09:36 Temperature Pulse Rate 86 85 90 Pulse Rate [ 84 Anterior Bilateral Throughout] Respiratory 22 23 16 Rate Respiratory 21 Rate [Anterior Bilateral Throughout] Blood Pressure 110/52 104/52 104/52 O2 Sat by Pulse 100 100 98 Oximetry General appearance: Present: no acute distress - EENT ENT: other (Eyes opened to verbal stimulus, but did not track (vacant stare forward).) - Respiratory Respiratory effort: labored (on C-pap) Extremities: normal temperature - Gastrointestinal General gastrointestinal: Present: soft, other (No garding to palpation, bulb drain in place.) - Neurologic Neurologic: other (Opens eyes, did not track, non-verbal, did not follow simple commands, moves upper ext, did not move lower extremities.) - Psychiatric Psychiatric: no appropriate mood/affect, no intact judgment & insight, no cooperative - Labs CBC & Chem 7: 03/08/19 02:25 03/08/19 02:25 Labs: Abnormal lab results 03/07/19 03/07/19 03/07/19 Range/Units 07:56 14:13 15:25 WBC (4.5-11.0) K/mm3 RBC (3.65-5.03) M/mm3 Hgb (10.1-14.3) gm/dl Hct (30.3-42.9) % RDW (13.2-15.2) % Seg Neuts % (Manual) 91.0 H (40.0-70.0) % Lymphocytes % (Manual) 3.0 L (13.4-35.0) % Seg Neutrophils # Man 15.6 H (1.8-7.7) K/mm3 Lymphocytes # (Manual) 0.5 L (1.2-5.4) K/mm3 Basophils # (Manual) 0.2 H (0.0-0.1) K/mm3 Heparin Anti-Xa Level (0.3-0.7) U.I./ml POC ABG pH 7.317 L (7.35-7.45) POC ABG pCO2 34.3 L (35-45) POC ABG pO2 50 L (80-105) Chloride (98-107) mmol/L Carbon Dioxide (22-30) mmol/L BUN (7-17) mg/dL Creatinine (0.7-1.2) mg/dL Glucose (65-100) mg/dL C-Reactive Protein 27.00 H (0.00-1.30) mg/dL Urine WBC (Auto) (0.0-6.0) /HPF 03/07/19 03/07/19 03/08/19 Range/Units 18:35 21:24 00:23 WBC (4.5-11.0) K/mm3 RBC (3.65-5.03) M/mm3 Hgb (10.1-14.3) gm/dl Hct (30.3-42.9) % RDW (13.2-15.2) % Seg Neuts % (Manual) (40.0-70.0) % Lymphocytes % (Manual) (13.4-35.0) % Seg Neutrophils # Man (1.8-7.7) K/mm3 Lymphocytes # (Manual) (1.2-5.4) K/mm3 Basophils # (Manual) (0.0-0.1) K/mm3 Heparin Anti-Xa Level 0.12 L (0.3-0.7) U.I./ml POC ABG pH 7.319 L (7.35-7.45) POC ABG pCO2 (35-45) POC ABG pO2 244 H (80-105) Chloride (98-107) mmol/L Carbon Dioxide (22-30) mmol/L BUN (7-17) mg/dL Creatinine (0.7-1.2) mg/dL Glucose (65-100) mg/dL C-Reactive Protein (0.00-1.30) mg/dL Urine WBC (Auto) 123.0 H (0.0-6.0) /HPF 03/08/19 03/08/19 Range/Units 02:25 02:25 WBC 20.2 H (4.5-11.0) K/mm3 RBC 2.85 L (3.65-5.03) M/mm3 Hgb 8.7 L (10.1-14.3) gm/dl Hct 26.9 L (30.3-42.9) % RDW 18.2 H (13.2-15.2) % Seg Neuts % (Manual) (40.0-70.0) % Lymphocytes % (Manual) (13.4-35.0) % Seg Neutrophils # Man (1.8-7.7) K/mm3 Lymphocytes # (Manual) (1.2-5.4) K/mm3 Basophils # (Manual) (0.0-0.1) K/mm3 Heparin Anti-Xa Level (0.3-0.7) U.I./ml POC ABG pH (7.35-7.45) POC ABG pCO2 (35-45) POC ABG pO2 (80-105) Chloride 111.9 H (98-107) mmol/L Carbon Dioxide 17 L (22-30) mmol/L BUN 33 H (7-17) mg/dL Creatinine 0.3 L (0.7-1.2) mg/dL Glucose 63 L (65-100) mg/dL C-Reactive Protein (0.00-1.30) mg/dL Urine WBC (Auto) (0.0-6.0) /HPF Medications & Allergies - Medications Allergies/Adverse Reactions: Allergies No Known Allergies Allergy (Unverified 02/03/19 18:28) Home Medications: Home Medications Medication Instructions Recorded Confirmed Last Taken Type Arformoterol Nebu [Brovana Nebu] 15 mcg IH Q12HRT ml 02/20/19 Unknown Rx Budesonide [Pulmicort Respules] 0.5 mg IH Q12HRT nebu 02/20/19 Unknown Rx Ipratropium/Albuterol Sulfate 1 ampul IH Q6HRT ampul.neb 02/20/19 Unknown Rx [DUONEB *Not for PRN Use*] Pantoprazole [Protonix INJ] 40 mg IV BID vial 02/20/19 Unknown Rx Petrolatum,White [Vaseline Lip 1 applic TP Q2HR PRN tube 02/20/19 Unknown Rx Therapy] methylPREDNISolone Sod Suc 60 mg IV Q8H vial 02/20/19 Unknown Rx [Solu-MEDROL] Active Medications: Generic Name Dose Route Start Last Admin Trade Name Freq PRN Reason Stop Dose Admin Acetaminophen 650 mg 03/06/19 23:37 03/07/19 07:34 Tylenol PO 650 mg Q4H PRN Administration Pain MILD(1-3)/Fever >100.5/DOMINGUEZ Albuterol 2.5 mg 03/06/19 23:37 Proventil IH Q4HRT PRN Shortness Of Breath Arformoterol Tartrate 15 mcg 03/07/19 08:00 03/08/19 09:19 Brovana Nebu IH 15 mcg Q12HRT JOEL Administration Budesonide 0.5 mg 03/07/19 08:00 03/08/19 09:19 Pulmicort IH 0.5 mg Q12HRT JOEL Administration Dextrose 50 ml 03/07/19 13:57 03/07/19 14:10 D50w (25gm) Syringe IV 50 ml PRN PRN Administration Hypoglycemia Hydrophilic Ointment 1 applic 03/06/19 23:31 Vaseline Lip Therapy TP Q2HR PRN Dry Lips Heparin Sodium/Sodium Chloride 25,000 unit in 500 mls @ 14.28 mls/hr 03/06/19 23:45 03/08/19 04:36 Heparin/ 0.45% Nacl-25,000 Unit/500 Ml IV 920 units/hr TITR JOEL 18.4 mls/hr Administration Protocol 714 UNITS/HR Vancomycin HCl 500 mg/ Sodium 110 mls @ 55 mls/hr 03/07/19 17:00 03/08/19 04:36 Chloride IV 55 mls/hr Q12H JOEL Administration Cefepime HCl 2 gm in 100 mls @ 200 mls/hr 03/08/19 18:00 Maxipime/Ns 2 Gm/100 Ml IV Q12HR@0600,1800 [facility] Protocol Morphine Sulfate 2 mg 03/06/19 23:37 03/07/19 21:55 Morphine IV 2 mg Q4H PRN Administration Pain, Moderate (4-6) Ondansetron HCl 4 mg 03/06/19 23:37 Zofran IV Q8H PRN Nausea And Vomiting Oxycodone/Acetaminophen 1 tab 03/06/19 23:37 Percocet 5/325 PO Q6H PRN Pain, Moderate (4-6) Pantoprazole Sodium 40 mg 03/07/19 10:00 03/07/19 21:54 Protonix IV 40 mg BID JOEL Administration Sodium Chloride 10 ml 03/07/19 10:00 03/07/19 21:55 Sodium Chloride Flush Syringe 10 Ml IV 10 ml BID JOEL Administration Sodium Chloride 10 ml 03/06/19 23:37 Sodium Chloride Flush Syringe 10 Ml IV PRN PRN LINE FLUSH
--- NOTE | 2019-03-08 10:16 | Progress Note ---
Assessment and Plan Assessment and plan: Patient is 68 yo female with PMHx of CHF, COPD, who was brought to the ER by EMS after a fall at home, altered mental status, respiratory distress. Per EMS patient was found in severe respiratory distress, laying on the floor and covered in her feces. According to EMS the had asked a neighbor to call EMS because the patient fell on the floor and he was unable to pick her up. He states that she had been sick for a few days, she had trouble breathing, and he had been taking a lot of "goody powder" for pain. The patient was found to be confused, lethargic, hypotensive, hypothermic, tachypneic, with hemoglobin of 1.9, severe anemia. -She was transfused, treated for severe anemia, COPD exacerbation, CHF. Respiratory failure worsened requiring intubation. She received PPI, EGD was planned the patient was unstable to get the test. She then developed bowel obstruction, received exploratory laparoscopy, right hemicolectomy for cecal volvulus and large bowel obstruction. The patient was extubated on 02/04/19. Patient was improving and placed on a pured diet. However on 02/20/19 she became acutely short of breath and hypotensive, she again had a drop in hemoglobin. CT angiogram revealed ruptured 5 cm infrarenal AAA. She was seen by vascular surgery, and was transferred to [place]. She received AAA repair at [place] on 02/21/19, has a maintained on heparin drip then transferred back to [facility]. While she was at [place] she had ultrasound of lower extremity which showed non-occlusive subacute to chronic DVT of bilateral lower extremities. She was found to have melena on 02/23, underwent flexible sigmoidoscopy and EGD followed by exploratory laparoscopy and completion of total colectomy, abdominal washout and end ileostomy on 02/24/19. Patient has been sent back to [facility] and re-admitted 03/06/19 Toxic metabolic encephalopathy Apparently the patient has been minimally responsive but every before she was transferred Infrarenal AAA rupture -sp surgical repair at [place], vasc sx consulted Bilat LE DVT cont heparin Drip, will need to transition to oral meds when safe to do so, will defer to vasc sx and hematology Sepsis, present on admission On Cefepime and vancomycin fever of 101.2 Blood cultures drawn broad spectrum abx, ID consulted, following Acute resp failure with hypoxia cont BIPAP. Consult Pulmonology = discussed with Dr. 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 History Interval history: Patient transferred here from [place] 03/07/19 Put on BIPAP for respiratory distress Hospitalist Physical - Physical exam Narrative exam: Gen: Not in acute distress, lying in bed,malnourished, very ill looking, BIPAP mask on HEENT: Normocephalic, atraumatic Neck: supple, no JVD Heart: S1 and S2 reg, no murmurs, rubs or gallop Lungs: Bilateral crackles, decreased breath sounds, no wheeze Abd: soft, non tender, non distended, normal BS, stomy bag Ext: No edema, no clubbing, no cyanosis, Neuro: Lethargic, not following commands - Constitutional Vitals: Temp Pulse Resp BP Pulse Ox 98.7 F 90 16 104/52 98 03/08/19 03:34 03/08/19 09:36 03/08/19 09:36 03/08/19 09:36 03/08/19 09:36 General appearance: Present: no acute distress Results - Labs CBC & Chem 7: 03/08/19 02:25 03/08/19 02:25 Labs: Laboratory Last Values WBC 20.2 K/mm3 (4.5-11.0) H 03/08/19 02:25 RBC 2.85 M/mm3 (3.65-5.03) L 03/08/19 02:25 Hgb 8.7 gm/dl (10.1-14.3) L 03/08/19 02:25 Hct 26.9 % (30.3-42.9) L 03/08/19 02:25 MCV 94 fl (79-97) 03/08/19 02:25 MCH 30 pg (28-32) 03/08/19 02:25 MCHC 32 % (30-34) 03/08/19 02:25 RDW 18.2 % (13.2-15.2) H 03/08/19 02:25 Plt Count 337 K/mm3 (140-440) 03/08/19 02:25 Add Manual Diff Complete 03/07/19 07:56 Total Counted 100 03/07/19 07:56 Seg Neuts % (Manual) 91.0 % (40.0-70.0) H 03/07/19 07:56 3.0 % 03/07/19 07:56 3.0 % (13.4-35.0) L 03/07/19 07:56 Reactive Lymphs % (Man) 0 % 03/07/19 07:56 2.0 % (0.0-7.3) 03/07/19 07:56 0 % (0.0-4.3) 03/07/19 07:56 1.0 % (0.0-1.8) 03/07/19 07:56 0 % 03/07/19 07:56 0 % 03/07/19 07:56 0 % 03/07/19 07:56 0 % 03/07/19 07:56 Nucleated RBC % Not Reportable 03/07/19 07:56 Seg Neutrophils # Man 15.6 K/mm3 (1.8-7.7) H 03/07/19 07:56 Band Neutrophils # 0.5 K/mm3 03/07/19 07:56 0.5 K/mm3 (1.2-5.4) L 03/07/19 07:56 Abs React Lymphs (Man) 0.0 K/mm3 03/07/19 07:56 0.3 K/mm3 (0.0-0.8) 03/07/19 07:56 0.0 K/mm3 (0.0-0.4) 03/07/19 07:56 0.2 K/mm3 (0.0-0.1) H 03/07/19 07:56 0.0 K/mm3 03/07/19 07:56 0.0 K/mm3 03/07/19 07:56 0.0 K/mm3 03/07/19 07:56 Blast Cells # 0.0 K/mm3 03/07/19 07:56 WBC Morphology Not Reportable 03/07/19 07:56 Hypersegmented Neuts Not Reportable 03/07/19 07:56 Hyposegmented Neuts Not Reportable 03/07/19 07:56 Hypogranular Neuts Not Reportable 03/07/19 07:56 Not Reportable 03/07/19 07:56 Not Reportable 03/07/19 07:56 Not Reportable 03/07/19 07:56 Not Reportable 03/07/19 07:56 Not Reportable 03/07/19 07:56 Not Reportable 03/07/19 07:56 Consistent w auto 03/07/19 07:56 Not Reportable 03/07/19 07:56 Plt Clumps, EDTA Not Reportable 03/07/19 07:56 Not Reportable 03/07/19 07:56 Not Reportable 03/07/19 07:56 Not Reportable 03/07/19 07:56 Plt Morphology Comment Not Reportable 03/07/19 07:56 RBC Morphology Not Reportable 03/07/19 07:56 Dimorphic RBCs Not Reportable 03/07/19 07:56 Few 03/07/19 07:56 Not Reportable 03/07/19 07:56 Not Reportable 03/07/19 07:56 1+ 03/07/19 07:56 Not Reportable 03/07/19 07:56 Not Reportable 03/07/19 07:56 Not Reportable 03/07/19 07:56 Not Reportable 03/07/19 07:56 Not Reportable 03/07/19 07:56 Not Reportable 03/07/19 07:56 Not Reportable 03/07/19 07:56 Not Reportable 03/07/19 07:56 Not Reportable 03/07/19 07:56 Not Reportable 03/07/19 07:56 Not Reportable 03/07/19 07:56 Not Reportable 03/07/19 07:56 Not Reportable 03/07/19 07:56 Not Reportable 03/07/19 07:56 Not Reportable 03/07/19 07:56 Acanthocytes (Spur) Not Reportable 03/07/19 07:56 Rouleaux Not Reportable 03/07/19 07:56 Not Reportable 03/07/19 07:56 Not Reportable 03/07/19 07:56 Not Reportable 03/07/19 07:56 Not Reportable 03/07/19 07:56 Hem Pathologist Commnt No 03/07/19 07:56 PT 14.6 Sec. (12.2-14.9) 03/06/19 23:52 INR 1.17 (0.87-1.13) H 03/06/19 23:52 APTT 34.8 Sec. (24.2-36.6) 03/06/19 23:52 Heparin Anti-Xa Level 0.12 U.I./ml (0.3-0.7) L 03/08/19 00:23 POC ABG pH 7.319 (7.35-7.45) L 03/07/19 21:24 POC ABG pCO2 36.4 (35-45) 03/07/19 21:24 POC ABG pO2 244 (80-105) H 03/07/19 21:24 POC ABG HCO3 18.7 (22-26 mml/L) 03/07/19 21:24 POC ABG Total CO2 20 (23-27mmol/L) 03/07/19 21:24 POC ABG O2 Sat 100 03/07/19 21:24 POC ABG Base Excess -7 ((-2) - (+3)mmol/L) 03/07/19 21:24 80 % 03/07/19 21:24 Sodium 143 mmol/L (137-145) 03/08/19 02:25 Potassium 4.9 mmol/L (3.6-5.0) 03/08/19 02:25 Chloride 111.9 mmol/L (98-107) H 03/08/19 02:25 Carbon Dioxide 17 mmol/L (22-30) L 03/08/19 02:25 19 mmol/L 03/08/19 02:25 BUN 33 mg/dL (7-17) H 03/08/19 02:25 0.3 mg/dL (0.7-1.2) L 03/08/19 02:25 Estimated GFR > 60 ml/min 03/08/19 02:25 110 % 03/08/19 02:25 Glucose 63 mg/dL (65-100) L 03/08/19 02:25 POC Glucose 83 (70-105) 03/07/19 20:11 Calcium 9.9 mg/dL (8.4-10.2) 03/08/19 02:25 Phosphorus 3.50 mg/dL (2.5-4.5) 03/07/19 08:17 Magnesium 2.20 mg/dL (1.7-2.3) 03/07/19 08:17 0.60 mg/dL (0.1-1.2) 03/07/19 07:56 AST 22 units/L (5-40) 03/07/19 07:56 ALT 22 units/L (7-56) 03/07/19 07:56 253 units/L (35-129) H 03/07/19 07:56 27.00 mg/dL (0.00-1.30) H 03/07/19 15:25 5.4 g/dL (6.3-8.2) L 03/07/19 07:56 2.0 g/dL (3.9-5) L 03/07/19 07:56 0.6 % 03/07/19 07:56 Marisela (Yellow) 03/07/19 18:35 Cloudy (Clear) 03/07/19 18:35 6.0 (5.0-7.0) 03/07/19 18:35 Ur Specific [place] 1.026 (1.003-1.030) 03/07/19 18:35 100 mg/dl mg/dL (Negative) 03/07/19 18:35 Neg mg/dL (Negative) 03/07/19 18:35 Neg mg/dL (Negative) 03/07/19 18:35 Mod (Negative) 03/07/19 18:35 Neg (Negative) 03/07/19 18:35 Neg (Negative) 03/07/19 18:35 < 2.0 mg/dL (<2.0) 03/07/19 18:35 Ur Leukocyte Esterase Mod (Negative) 03/07/19 18:35 123.0 /HPF (0.0-6.0) H 03/07/19 18:35 > 182.0 /HPF (0.0-6.0) 03/07/19 18:35 U Epithel Cells (Auto) 1.0 /HPF (0-13.0) 03/07/19 18:35 4+ /HPF (Negative) 03/07/19 18:35 Hyaline Casts 10 /LPF 03/07/19 18:35 3+ /HPF 03/07/19 18:35 3+ /HPF 03/07/19 18:35 Blood Type A POSITIVE 03/07/19 07:19 Antibody Screen Negative 03/07/19 07:19 Active Medications - Current Medications Current Medications: Generic Name Dose Route Start Last Admin Trade Name Freq PRN Reason Stop Dose Admin Acetaminophen 650 mg 03/06/19 23:37 03/07/19 07:34 Tylenol PO 650 mg Q4H PRN Administration Pain MILD(1-3)/Fever >100.5/DOMINGUEZ Albuterol 2.5 mg 03/06/19 23:37 Proventil IH Q4HRT PRN Shortness Of Breath Arformoterol Tartrate 15 mcg 03/07/19 08:00 03/08/19 09:19 Brovana Nebu IH 15 mcg Q12HRT JOEL Administration Budesonide 0.5 mg 03/07/19 08:00 03/08/19 09:19 Pulmicort IH 0.5 mg Q12HRT JOEL Administration Dextrose 50 ml 03/07/19 13:57 03/07/19 14:10 D50w (25gm) Syringe IV 50 ml PRN PRN Administration Hypoglycemia Hydrophilic Ointment 1 applic 03/06/19 23:31 Vaseline Lip Therapy TP Q2HR PRN Dry Lips Heparin Sodium/Sodium Chloride 25,000 unit in 500 mls @ 14.28 mls/hr 03/06/19 23:45 03/08/19 04:36 Heparin/ 0.45% Nacl-25,000 Unit/500 Ml IV 920 units/hr TITR JOEL 18.4 mls/hr Administration Protocol 714 UNITS/HR Vancomycin HCl 500 mg/ Sodium 110 mls @ 55 mls/hr 03/07/19 17:00 03/08/19 04:36 Chloride IV 55 mls/hr Q12H JOEL Administration Cefepime HCl 2 gm in 100 mls @ 200 mls/hr 03/08/19 18:00 Maxipime/Ns 2 Gm/100 Ml IV Q12HR@0600,1800 [facility] Protocol Morphine Sulfate 2 mg 03/06/19 23:37 03/07/19 21:55 Morphine IV 2 mg Q4H PRN Administration Pain, Moderate (4-6) Ondansetron HCl 4 mg 03/06/19 23:37 Zofran IV Q8H PRN Nausea And Vomiting Oxycodone/Acetaminophen 1 tab 03/06/19 23:37 Percocet 5/325 PO Q6H PRN Pain, Moderate (4-6) Pantoprazole Sodium 40 mg 03/07/19 10:00 03/07/19 21:54 Protonix IV 40 mg BID JOEL Administration Sodium Chloride 10 ml 03/07/19 10:00 03/07/19 21:55 Sodium Chloride Flush Syringe 10 Ml IV 10 ml BID JOEL Administration Sodium Chloride 10 ml 03/06/19 23:37 Sodium Chloride Flush Syringe 10 Ml IV PRN PRN LINE FLUSH Nutrition/Malnutrition Assess - Dietary Evaluation Nutrition/Malnutrition Findings: Nutrition Notes Start: 03/07/19 15:10 Freq: Status: Active Protocol: Document 03/07/19 15:10 RM (Rec: 03/07/19 15:21 RM [id number]) Nutrition Notes Need for Assessment generated from: MD Order,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 Screened for chewing difficulty and low BMI. Pt asleep on BiPAP at time of visit. No family present. Pt no appropriate for diet education at this time. Burn Absent Trauma Absent #1 Nutrition Diagnosis Predicted suboptimal energy intake Etiology COPD As Evidenced by Signs and Symptoms no diet ordered, BMI 12.5 Is patient on ventilator? No Is Patient Ambulatory and/or Out of Bed No REE-([facility]-confined to bed) 1039.368 Kcal/Kg value to use for calculation 39 Approximate Energy Requirements Using 1326 kcal/Kg Calculation Used for Recommendations Kcal/kg Additional Notes Protein Needs: 41-51g (1.2-1. 5g/kg) Fluid Needs: 1 ml/kcal Nutrition Intervention Change Diet Order: Advance diet when medically Add Supplement/Snack (indicate name/kcal Ensure Enlive 1 daily once /protein ) diet advanced Provides kCal: 350 Provides Protein (gm) 20 Goal #1 Diet advancement Anticipated Discharge Needs: Unable to determine at this time Follow-Up By: 06/24/19 Additional Comments Follow for malnutrition assessment, diet advancement, PO intakes
--- NOTE | 2019-03-08 10:32 | Progress Note ---
Subjective Date of service: 03/08/19 Objective Vital Signs - 12hr 03/07/19 03/07/19 03/07/19 22:41 22:51 23:00 Temperature Pulse Rate 99 H 95 H 98 H Pulse Rate [ Anterior Bilateral Throughout] Respiratory 28 H 28 H 24 Rate Respiratory Rate [Anterior Bilateral Throughout] Blood Pressure 105/42 105/42 107/63 O2 Sat by Pulse 100 100 100 Oximetry 03/07/19 03/07/19 03/07/19 23:09 23:11 23:21 Temperature Pulse Rate 96 H 98 H 98 H Pulse Rate [ Anterior Bilateral Throughout] Respiratory 21 23 24 Rate Respiratory Rate [Anterior Bilateral Throughout] Blood Pressure 107/63 107/63 107/63 O2 Sat by Pulse 100 100 100 Oximetry 03/07/19 03/07/19 03/07/19 23:22 23:31 23:41 Temperature 98.8 F Pulse Rate 97 H 90 Pulse Rate [ Anterior Bilateral Throughout] Respiratory 24 18 Rate Respiratory Rate [Anterior Bilateral Throughout] Blood Pressure 107/63 107/63 O2 Sat by Pulse 100 100 Oximetry 03/07/19 03/08/19 03/08/19 23:51 00:00 00:10 Temperature Pulse Rate 91 H 98 H 90 Pulse Rate [ Anterior Bilateral Throughout] Respiratory 17 26 H 17 Rate Respiratory Rate [Anterior Bilateral Throughout] Blood Pressure 107/63 113/63 113/63 O2 Sat by Pulse 100 100 100 Oximetry 03/08/19 03/08/19 03/08/19 00:20 00:31 00:41 Temperature Pulse Rate 98 H 94 H 89 Pulse Rate [ Anterior Bilateral Throughout] Respiratory 24 23 22 Rate Respiratory Rate [Anterior Bilateral Throughout] Blood Pressure 113/63 107/63 113/63 O2 Sat by Pulse 100 100 100 Oximetry 03/08/19 03/08/19 03/08/19 00:51 01:00 01:11 Temperature Pulse Rate 98 H 95 H 96 H Pulse Rate [ Anterior Bilateral Throughout] Respiratory 25 H 26 H 22 Rate Respiratory Rate [Anterior Bilateral Throughout] Blood Pressure 113/63 116/64 113/63 O2 Sat by Pulse 100 100 100 Oximetry 03/08/19 03/08/19 03/08/19 01:21 01:31 01:41 Temperature Pulse Rate 97 H 96 H 96 H Pulse Rate [ Anterior Bilateral Throughout] Respiratory 29 H 25 H 26 H Rate Respiratory Rate [Anterior Bilateral Throughout] Blood Pressure 113/63 113/63 116/64 O2 Sat by Pulse 100 100 100 Oximetry 03/08/19 03/08/19 03/08/19 01:51 02:00 02:11 Temperature Pulse Rate 96 H 95 H 95 H Pulse Rate [ Anterior Bilateral Throughout] Respiratory 25 H 26 H 23 Rate Respiratory Rate [Anterior Bilateral Throughout] Blood Pressure 116/64 126/69 126/69 O2 Sat by Pulse 100 100 100 Oximetry 03/08/19 03/08/19 03/08/19 02:21 02:31 02:41 Temperature Pulse Rate 95 H 94 H 94 H Pulse Rate [ Anterior Bilateral Throughout] Respiratory 25 H 23 25 H Rate Respiratory Rate [Anterior Bilateral Throughout] Blood Pressure 126/69 126/69 126/69 O2 Sat by Pulse 100 100 100 Oximetry 03/08/19 03/08/19 03/08/19 02:51 03:00 03:11 Temperature Pulse Rate 93 H 87 86 Pulse Rate [ Anterior Bilateral Throughout] Respiratory 26 H 22 21 Rate Respiratory Rate [Anterior Bilateral Throughout] Blood Pressure 126/69 108/58 108/58 O2 Sat by Pulse 100 100 100 Oximetry 03/08/19 03/08/19 03/08/19 03:21 03:31 03:34 Temperature 98.7 F Pulse Rate 93 H 93 H Pulse Rate [ Anterior Bilateral Throughout] Respiratory 22 20 Rate Respiratory Rate [Anterior Bilateral Throughout] Blood Pressure 108/58 108/58 O2 Sat by Pulse 100 100 Oximetry 03/08/19 03/08/19 03/08/19 03:41 03:51 04:00 Temperature Pulse Rate 84 91 H 92 H Pulse Rate [ Anterior Bilateral Throughout] Respiratory 24 22 23 Rate Respiratory Rate [Anterior Bilateral Throughout] Blood Pressure 108/58 108/58 117/54 O2 Sat by Pulse 100 100 100 Oximetry 03/08/19 03/08/19 03/08/19 04:11 04:21 04:31 Temperature Pulse Rate 83 83 84 Pulse Rate [ Anterior Bilateral Throughout] Respiratory 22 29 H 20 Rate Respiratory Rate [Anterior Bilateral Throughout] Blood Pressure 117/54 117/54 117/54 O2 Sat by Pulse 100 100 100 Oximetry 03/08/19 03/08/19 03/08/19 04:41 04:51 05:00 Temperature Pulse Rate 91 H 95 H 91 H Pulse Rate [ Anterior Bilateral Throughout] Respiratory 23 26 H 25 H Rate Respiratory Rate [Anterior Bilateral Throughout] Blood Pressure 117/54 117/54 121/60 O2 Sat by Pulse 100 100 95 Oximetry 03/08/19 03/08/19 03/08/19 05:11 05:21 05:31 Temperature Pulse Rate 84 89 80 Pulse Rate [ Anterior Bilateral Throughout] Respiratory 24 19 20 Rate Respiratory Rate [Anterior Bilateral Throughout] Blood Pressure 117/54 117/54 117/54 O2 Sat by Pulse 100 100 100 Oximetry 03/08/19 03/08/19 03/08/19 05:41 05:51 06:00 Temperature Pulse Rate 80 86 86 Pulse Rate [ Anterior Bilateral Throughout] Respiratory 16 20 22 Rate Respiratory Rate [Anterior Bilateral Throughout] Blood Pressure 117/54 117/54 110/52 O2 Sat by Pulse 100 100 100 Oximetry 03/08/19 03/08/19 03/08/19 08:00 09:19 09:35 Temperature Pulse Rate 85 Pulse Rate [ 84 87 Anterior Bilateral Throughout] Respiratory 23 Rate Respiratory 21 14 Rate [Anterior Bilateral Throughout] Blood Pressure 104/52 O2 Sat by Pulse 100 Oximetry 03/08/19 09:36 Temperature Pulse Rate 90 Pulse Rate [ Anterior Bilateral Throughout] Respiratory 16 Rate Respiratory Rate [Anterior Bilateral Throughout] Blood Pressure 104/52 O2 Sat by Pulse 98 Oximetry CBC and BMP: 03/08/19 02:25 03/08/19 02:25 ABG, PT/INR, D-dimer: ABG POC ABG pH 7.319 (7.35-7.45) L 03/07/19 21:24 POC ABG pCO2 36.4 (35-45) 03/07/19 21:24 POC ABG pO2 244 (80-105) H 03/07/19 21:24 POC ABG HCO3 18.7 (22-26 mml/L) 03/07/19 21:24 POC ABG Total CO2 20 (23-27mmol/L) 03/07/19 21:24 POC ABG O2 Sat 100 03/07/19 21:24 PT/INR, D-dimer PT 14.6 Sec. (12.2-14.9) 03/06/19 23:52 INR 1.17 (0.87-1.13) H 03/06/19 23:52 Abnormal lab findings: Abnormal Labs 03/06/19 03/06/19 03/07/19 23:52 23:52 05:57 WBC RBC Hgb 9.0 L Hct 27.6 L RDW Seg Neuts % (Manual) Lymphocytes % (Manual) Seg Neutrophils # Man Lymphocytes # (Manual) Basophils # (Manual) INR 1.17 H Heparin Anti-Xa Level POC ABG pH 7.249 L POC ABG pCO2 49.2 H POC ABG pO2 73 L Chloride Carbon Dioxide BUN Creatinine Glucose Alkaline Phosphatase C-Reactive Protein Total Protein Albumin Urine WBC (Auto) 03/07/19 03/07/19 03/07/19 07:19 07:56 07:56 WBC 17.1 H RBC 3.13 L Hgb 9.5 L Hct 30.1 L RDW 19.5 H Seg Neuts % (Manual) 91.0 H Lymphocytes % (Manual) 3.0 L Seg Neutrophils # Man 15.6 H Lymphocytes # (Manual) 0.5 L Basophils # (Manual) 0.2 H INR Heparin Anti-Xa Level < 0.10 L POC ABG pH POC ABG pCO2 POC ABG pO2 Chloride 110.7 H Carbon Dioxide 21 L BUN 21 H Creatinine 0.2 L Glucose 63 L Alkaline Phosphatase 253 H C-Reactive Protein Total Protein 5.4 L Albumin 2.0 L Urine WBC (Auto) 03/07/19 03/07/19 03/07/19 14:13 15:25 18:35 WBC RBC Hgb Hct RDW Seg Neuts % (Manual) Lymphocytes % (Manual) Seg Neutrophils # Man Lymphocytes # (Manual) Basophils # (Manual) INR Heparin Anti-Xa Level POC ABG pH 7.317 L POC ABG pCO2 34.3 L POC ABG pO2 50 L Chloride Carbon Dioxide BUN Creatinine Glucose Alkaline Phosphatase C-Reactive Protein 27.00 H Total Protein Albumin Urine WBC (Auto) 123.0 H 03/07/19 03/08/19 03/08/19 21:24 00:23 02:25 WBC 20.2 H RBC 2.85 L Hgb 8.7 L Hct 26.9 L RDW 18.2 H Seg Neuts % (Manual) Lymphocytes % (Manual) Seg Neutrophils # Man Lymphocytes # (Manual) Basophils # (Manual) INR Heparin Anti-Xa Level 0.12 L POC ABG pH 7.319 L POC ABG pCO2 POC ABG pO2 244 H Chloride Carbon Dioxide BUN Creatinine Glucose Alkaline Phosphatase C-Reactive Protein Total Protein Albumin Urine WBC (Auto) 03/08/19 02:25 WBC RBC Hgb Hct RDW Seg Neuts % (Manual) Lymphocytes % (Manual) Seg Neutrophils # Man Lymphocytes # (Manual) Basophils # (Manual) INR Heparin Anti-Xa Level POC ABG pH POC ABG pCO2 POC ABG pO2 Chloride 111.9 H Carbon Dioxide 17 L BUN 33 H Creatinine 0.3 L Glucose 63 L Alkaline Phosphatase C-Reactive Protein Total Protein Albumin Urine WBC (Auto)
--- NOTE | 2019-03-08 10:42 | Progress Note ---
Assessment and Plan Cultures: Blood cultures 03/06/2019 no growth Assessment: 68 y/o female with history of CHF, COPD and a recent prolonged hospitalization on 02/03/2019-02/20/2019 due to altered mental status, respiratory distress and bowel obstruction with volvulus she underwent an exploratory laparotomy and righ t hemicolectomy on 02/11/2019, developed persistent leukocytosis with elevated lactate likely due to bilateral pneumonia HCAP with acute respiratory failure treated with cefepime and vancomycin for 5 days. Unfortunately, on 02/20/19 she became acutely short of breath and hypotensive and dropped her hemoglobin. CT angiogram revealed ruptured 5 cm infrarenal AAA. She was transferred to [place]. She received AAA repair at [place] on 02/21/19, has a maintained on heparin drip. She was also to have a nonocclusive subacute to chronic DVT of bilateral lower extremities. She was found to have melena on 02/23, underwent flexible sigmoidoscopy and EGD followed by exploratory laparoscopy and completion of to flynn colectomy, abdominal washout and end ileostomy on 02/24. 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 She was transferred back to [facility]. ID consulted for new fever 102.2. 1) Severe Sepsis: no fever for 24h, leukocytosis is uo to 20K, hypotension and tachycardia resolved. Etiology most likely HAP +/- UTI. 2) HAP: prolonged complicated hospital stay in [facility] and [place]. S/p recent otal colectomy, abdominal washout and end ileostomy on 02/24. 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 CXR bilateral infiltrates. 3) CAUTI ? 4) Volvulus / recent GI bleed 5) Severe malnutrition Recommendations: - follow-up blood cultures and urine culture - follow-up MRSA PCR - get [place] micro records - pending - continue cefepime and vancomcyin with PK consult D2 - continue contact isolation - exchange castillo if it has not been done, came with castillo from [place] Guarded prognosis. Dr Restrepo covering this weekend Will follow. Judy Desai MD Infectious Diseases [employer] [facility] ([facility]) M [phone] O [phone] Subjective Date of service: 03/08/19 Principal diagnosis: HAP Interval history: Patient is more alert, follows commands, remains on BIPAP. No fever x 24 hours. Objective - Exam Narrative Exam: General appearance: alert in mild resp distress cachectic Eyes: anicteric sclerae, moist conjunctivae; no lid-lag; PERRLA HENT: Atraumatic; oropharynx with BIPAP Neck: Trachea midline; supple, no thyromegaly or lymphadenopathy Lungs: gab coarse breath sounds CV: RRR no murmur Abdomen: Soft, midline surg wound with val, distended iliostomy and DANIELA drain Extremities:cachexia Skin: Normal temperature, turgor and texture; no rash, ulcers or subcutaneous nodules Psych: somnolent. Neuro: somnolent castillo - Constitutional Vitals: Vital Signs Temp Pulse Resp BP Pulse Ox 98.7 F 90 16 104/52 98 03/08/19 03:34 03/08/19 09:36 03/08/19 09:36 03/08/19 09:36 03/08/19 09:36 Temperature -Last 24 Hours Temperature 98.7 F Temperature 98.8 F Temperature 98.7 F - Labs CBC & Chem 7: 03/08/19 02:25 03/08/19 02:25 Labs: Abnormal lab results 03/07/19 03/07/19 03/07/19 Range/Units 14:13 15:25 18:35 WBC (4.5-11.0) K/mm3 RBC (3.65-5.03) M/mm3 Hgb (10.1-14.3) gm/dl Hct (30.3-42.9) % RDW (13.2-15.2) % Heparin Anti-Xa Level (0.3-0.7) U.I./ml POC ABG pH 7.317 L (7.35-7.45) POC ABG pCO2 34.3 L (35-45) POC ABG pO2 50 L (80-105) Chloride (98-107) mmol/L Carbon Dioxide (22-30) mmol/L BUN (7-17) mg/dL Creatinine (0.7-1.2) mg/dL Glucose (65-100) mg/dL C-Reactive Protein 27.00 H (0.00-1.30) mg/dL Urine WBC (Auto) 123.0 H (0.0-6.0) /HPF 03/07/19 03/08/19 03/08/19 Range/Units 21:24 00:23 02:25 WBC 20.2 H (4.5-11.0) K/mm3 RBC 2.85 L (3.65-5.03) M/mm3 Hgb 8.7 L (10.1-14.3) gm/dl Hct 26.9 L (30.3-42.9) % RDW 18.2 H (13.2-15.2) % Heparin Anti-Xa Level 0.12 L (0.3-0.7) U.I./ml POC ABG pH 7.319 L (7.35-7.45) POC ABG pCO2 (35-45) POC ABG pO2 244 H (80-105) Chloride (98-107) mmol/L Carbon Dioxide (22-30) mmol/L BUN (7-17) mg/dL Creatinine (0.7-1.2) mg/dL Glucose (65-100) mg/dL C-Reactive Protein (0.00-1.30) mg/dL Urine WBC (Auto) (0.0-6.0) /HPF 03/08/19 Range/Units 02:25 WBC (4.5-11.0) K/mm3 RBC (3.65-5.03) M/mm3 Hgb (10.1-14.3) gm/dl Hct (30.3-42.9) % RDW (13.2-15.2) % Heparin Anti-Xa Level (0.3-0.7) U.I./ml POC ABG pH (7.35-7.45) POC ABG pCO2 (35-45) POC ABG pO2 (80-105) Chloride 111.9 H (98-107) mmol/L Carbon Dioxide 17 L (22-30) mmol/L BUN 33 H (7-17) mg/dL Creatinine 0.3 L (0.7-1.2) mg/dL Glucose 63 L (65-100) mg/dL C-Reactive Protein (0.00-1.30) mg/dL Urine WBC (Auto) (0.0-6.0) /HPF
--- NOTE | 2019-03-08 10:54 | Progress Note ---
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 EF 40-45% by echo 02/2019 at [place]. Conservative cardiac management. Subjective Date of service: 03/08/19 Principal diagnosis: HAP Interval history: Remains on Bipap. No cardiac events overnight. Objective Vital Signs Temp Pulse Pulse Resp Resp BP Pulse Ox 03/08/19 09:36 90 16 104/52 98 03/08/19 09:35 87 14 03/08/19 09:19 84 21 03/08/19 08:00 85 23 104/52 100 03/08/19 06:00 86 22 110/52 100 03/08/19 05:51 86 20 117/54 100 03/08/19 05:41 80 16 117/54 100 03/08/19 05:31 80 20 117/54 100 03/08/19 05:21 89 19 117/54 100 03/08/19 05:11 84 24 117/54 100 03/08/19 05:00 91 H 25 H 121/60 95 03/08/19 04:51 95 H 26 H 117/54 100 03/08/19 04:41 91 H 23 117/54 100 03/08/19 04:31 84 20 117/54 100 03/08/19 04:21 83 29 H 117/54 100 03/08/19 04:11 83 22 117/54 100 03/08/19 04:00 92 H 23 117/54 100 03/08/19 03:51 91 H 22 108/58 100 03/08/19 03:41 84 24 108/58 100 03/08/19 03:34 98.7 F 03/08/19 03:31 93 H 20 108/58 100 03/08/19 03:21 93 H 22 108/58 100 03/08/19 03:11 86 21 108/58 100 03/08/19 03:00 87 22 108/58 100 03/08/19 02:51 93 H 26 H 126/69 100 03/08/19 02:41 94 H 25 H 126/69 100 03/08/19 02:31 94 H 23 126/69 100 03/08/19 02:21 95 H 25 H 126/69 100 03/08/19 02:11 95 H 23 126/69 100 03/08/19 02:00 95 H 26 H 126/69 100 03/08/19 01:51 96 H 25 H 116/64 100 03/08/19 01:41 96 H 26 H 116/64 100 03/08/19 01:31 96 H 25 H 113/63 100 03/08/19 01:21 97 H 29 H 113/63 100 03/08/19 01:11 96 H 22 113/63 100 03/08/19 01:00 95 H 26 H 116/64 100 03/08/19 00:51 98 H 25 H 113/63 100 03/08/19 00:41 89 22 113/63 100 03/08/19 00:31 94 H 23 107/63 100 03/08/19 00:20 98 H 24 113/63 100 03/08/19 00:10 90 17 113/63 100 03/08/19 00:00 98 H 26 H 113/63 100 03/07/19 23:51 91 H 17 107/63 100 03/07/19 23:41 90 18 107/63 100 03/07/19 23:31 97 H 24 107/63 100 03/07/19 23:22 98.8 F 03/07/19 23:21 98 H 24 107/63 100 03/07/19 23:11 98 H 23 107/63 100 03/07/19 23:09 96 H 21 107/63 100 03/07/19 23:00 98 H 24 107/63 100 03/07/19 22:51 95 H 28 H 105/42 100 03/07/19 22:41 99 H 28 H 105/42 100 03/07/19 22:31 100 H 25 H 105/42 99 03/07/19 22:21 100 H 21 105/42 100 03/07/19 22:11 100 H 24 105/42 99 03/07/19 22:00 99 H 26 H 105/42 99 03/07/19 21:51 99 H 25 H 97/44 99 03/07/19 21:41 100 H 23 97/44 100 20 21:31 101 H 24 97/44 100 03/07/19 21:22 102 H 32 H 97/44 100 03/07/19 21:21 98 H 22 97/44 100 06/20/19 21:11 97 H 26 H 97/44 100 06/20/19 21:01 99 H 23 97/44 100 06/20/19 20:51 97 H 20 110/45 100 06/20/19 20:41 95 H 28 H 110/45 100 06/20/19 20:31 96 H 25 H 110/45 100 06/20/19 20:28 90 30 H 110/50 100 06/20/19 20:26 88 18 06/20/19 20:21 95 H 20 110/45 100 06/20/19 20:11 97 H 25 H 110/45 100 06/20/19 20:01 96 H 24 105/66 100 06/20/19 19:51 89 18 105/66 100 06/20/19 19:41 89 17 105/66 100 06/20/19 19:36 98.7 F 20/19 19:31 93 H 22 105/66 100 06/20/19 19:21 91 H 18 105/66 100 06/20/19 19:11 96 H 24 105/66 100 06/20/19 19:00 95 H 25 H 105/66 100 06/20/19 18:51 95 H 25 H 121/65 100 06/20/19 18:41 89 17 121/65 100 06/20/19 18:30 93 H 18 121/65 100 06/20/19 18:21 93 H 30 H 121/65 100 06/20/19 18:11 92 H 17 121/65 100 06/20/19 18:00 96 H 35 H 121/65 100 06/20/19 17:51 97 H 32 H 118/57 100 06/20/19 17:41 98 H 27 H 118/57 100 06/20/19 17:31 98 H 18 118/57 100 06/20/19 17:21 97 H 22 118/57 100 06/20/19 17:15 92 H 26 H 118/57 100 06/20/19 17:11 95 H 19 118/57 100 06/20/19 17:01 92 H 22 118/57 100 06/20/19 16:51 94 H 19 100/55 100 06/20/19 16:41 98 H 38 H 100/55 100 06/20/19 16:31 97 H 34 H 100/55 100 06/20/19 16:21 93 H 32 H 100/55 100 06/20 16:11 99 H 29 H 100/55 97 06/20 16:01 95 H 26 H 100/55 100 03/07/19 15:51 96 H 23 104/54 100 03/07/19 15:41 95 H 22 104/54 100 03/07/19 15:30 97 H 40 H 104/54 100 20 15:21 97 H 34 H 104/54 98 03/07/19 15:11 99 H 31 H 104/54 100 20 15:00 98 H 29 H 104/54 100 03/07/19 14:51 96 H 21 110/47 100 03/07/19 14:41 99 H 25 H 110/47 99 03/07/19 14:31 100 H 36 H 110/47 100 03/07/19 14:21 101 H 25 H 110/47 100 03/07/19 14:11 100 H 22 110/47 100 03/07/19 14:00 102 H 25 H 110/47 100 03/07/19 13:51 102 H 32 H 100/39 100 20 13:41 103 H 26 H 100/39 100 20 13:31 105 H 33 H 100/39 100 20 13:21 105 H 28 H 100/39 100 03/07/19 13:11 104 H 32 H 100/39 100 03/07/19 13:00 99 H 27 H 100/39 97 03/07/19 12:51 102 H 26 H 105/46 100 20 12:41 105 H 30 H 105/46 20 12:31 101 H 26 H 105/46 100 20 12:21 110 H 19 105/46 100 /20 12:11 104 H 30 H 105/46 100 20 12:00 105 H 33 H 105/46 100 0620 11:51 104 H 30 H 107/46 100 062019 11:41 104 H 32 H 107/46 100 06/20/ 11:31 102 H 28 H 107/46 100 06/20/19 11:21 102 H 35 H 107/46 100 0620 11:11 101 H 32 H 107/46 100 06/20/19 11:00 101 H 36 H 107/46 100 - Physical Examination General: No Apparent Distress HEENT: Positive: PERRL Cardiac: Positive: Reg Rate and Rhythm - Labs and Meds CBC 03/08/19 Range/Units 02:25 WBC 20.2 H (4.5-11.0) K/mm3 RBC 2.85 L (3.65-5.03) M/mm3 Hgb 8.7 L (10.1-14.3) gm/dl Hct 26.9 L (30.3-42.9) % Plt Count 337 (140-440) K/mm3 Comprehensive Metabolic Panel 03/08/19 Range/Units 02:25 Sodium 143 (137-145) mmol/L Potassium 4.9 (3.6-5.0) mmol/L Chloride 111.9 H (98-107) mmol/L Carbon Dioxide 17 L (22-30) mmol/L BUN 33 H (7-17) mg/dL Creatinine 0.3 L (0.7-1.2) mg/dL Glucose 63 L (65-100) mg/dL Calcium 9.9 (8.4-10.2) mg/dL
[2019-03-08] MEDS: SODIUM CHLORIDE FLUSH SYRINGE 10 ML IV SCH ×2 (11:36→22:29)
[2019-03-08] MEDS: PROTONIX IV SCH ×2 (11:36→22:29)
--- NOTE | 2019-03-08 18:02 | Event Note ---
Date: 03/08/19 Pt well known to service. Recently transferred back from [place] after ruptured AAA was treated. Pt not very interactive. Abd soft. Ostomy is viable and functioning. [place] still in place. 1) Ok to resume tube feeds 2) Will need to verify that the val are the ones that we placed. If so, may be able to remove soon. 3) Needs PT Will be available as needed. Please call with questions.
[2019-03-09 04:20] LABS: Hematocrit 22.5 % (30.3-42.9); Hemoglobin 7.5 gm/dl (10.1-14.3); Mean Corpuscular HGB Conc 33 % (30-34); Mean Corpuscular Volume 92 fl (79-97); Platelet Count 356 K/mm3 (140-440); Red Blood Count 2.44 M/mm3 (3.65-5.03); Red Cell Distribution Width 18.2 % (13.2-15.2)
[2019-03-09] MEDS: VANCOMYCIN 500 MG in NACL 0.9% 100 ML IV SCH ×2 (04:29→17:12)
[2019-03-09 04:36] LABS: BUN/Creatinine Ratio 93; Blood Urea Nitrogen 37 mg/dL (7-17); Calcium 9.4 mg/dL (8.4-10.2); Hemolysis Index 5
[2019-03-09] MEDS: MAXIPIME/NS 2 GM/100 ML 2 GM/100 ML BAG IV SCH ×2 (06:30→18:11)
[2019-03-09] MEDS: HEPARIN/ 0.45% NACL-25,000 UNIT/500 ML 25,000 UNIT/500 ML BAG IV SCH (07:22)
[2019-03-09] MEDS: PULMICORT IH SCH ×2 (07:37→20:29)
[2019-03-09] MEDS: BROVANA NEBU IH SCH ×2 (07:37→20:29)
[2019-03-09] MEDS: PROTONIX IV SCH ×2 (10:33→21:13)
[2019-03-09] MEDS: SODIUM CHLORIDE FLUSH SYRINGE 10 ML IV SCH ×2 (10:33→21:13)
--- NOTE | 2019-03-09 13:46 | Progress Note ---
Assessment and Plan Assessment and plan: Patient is 68 yo female with PMHx of CHF, COPD, who was brought to the ER by EMS after a fall at home, altered mental status, respiratory distress. Per EMS patient was found in severe respiratory distress, laying on the floor and covered in her feces. According to EMS the had asked a neighbor to call EMS because the patient fell on the floor and he was unable to pick her up. He states that she had been sick for a few days, she had trouble breathing, and he had been taking a lot of "goody powder" for pain. The patient was found to be confused, lethargic, hypotensive, hypothermic, tachypneic, with hemoglobin of 1.9, severe anemia. -She was transfused, treated for severe anemia, COPD exacerbation, CHF. Respiratory failure worsened requiring intubation. She received PPI, EGD was planned the patient was unstable to get the test. She then developed bowel obstruction, received exploratory laparoscopy, right hemicolectomy for cecal volvulus and large bowel obstruction. The patient was extubated on 02/04/19. Patient was improving and placed on a pured diet. However on 02/20/19 she became acutely short of breath and hypotensive, she again had a drop in hemoglobin. CT angiogram revealed ruptured 5 cm infrarenal AAA. She was seen by vascular surgery, and was transferred to [place]. She received AAA repair at [place] on 02/21/19, has a maintained on heparin drip then transferred back to [facility]. While she was at [place] she had ultrasound of lower extremity which showed non-occlusive subacute to chronic DVT of bilateral lower extremities. She was found to have melena on 02/23, underwent flexible sigmoidoscopy and EGD followed by exploratory laparoscopy and completion of total colectomy, abdominal washout and end ileostomy on 02/24/19. Patient has been sent back to [facility] and re-admitted 03/06/19. Toxic metabolic encephalopathy Apparently the patient has been minimally responsive but every before she was transferred Infrarenal AAA rupture -sp surgical repair at [place], vasc sx consulted Bilat LE DVT cont heparin Drip, will need to transition to oral meds when safe to do so, will defer to vasc sx and hematology Sepsis, present on admission On Cefepime and vancomycin fever of 101.2 on 03/07 Blood cultures drawn broad spectrum abx, ID consulted, following Acute resp failure with hypoxia cont BIPAP. Consult Pulmonology = discussed with Dr. Plummer GI bleed; resolved sp total colectomy Acute blood loss anemia; 2/2 above, was transfused leukocytosis due to sepsis Copd- nebs prn Acute on chronic systolic CHF EF 25% cardiology consulted Debility due to multiple surgeries and prolonged ICU stay, PT/OT and CM consult Dysphagia; ST consulted Was put on contact isolation for resp secretion growing Burkholderia Cepaciae Prognosis guarded History Interval history: Patient transferred here from [place] 03/07/19 Still on BIPAP for respiratory distress Fever resolved Hospitalist Physical - Physical exam Narrative exam: Gen: Not in acute distress, lying in bed,malnourished, very ill looking, BIPAP mask on HEENT: Normocephalic, atraumatic Neck: supple, no JVD Heart: S1 and S2 reg, no murmurs, rubs or gallop Lungs: Bilateral crackles, decreased breath sounds, no wheeze Abd: soft, non tender, non distended, normal BS, stomy bag Ext: No edema, no clubbing, no cyanosis, Neuro: awake, alert, now following commands - Constitutional Vitals: Temp Pulse Resp BP Pulse Ox 96.9 F L 97 H 28 H 120/49 100 03/09/19 12:00 03/09/19 10:40 03/09/19 10:40 03/09/19 10:40 03/09/19 10:40 General appearance: Present: no acute distress Results - Labs CBC & Chem 7: 03/09/19 03:43 03/09/19 03:43 Labs: Laboratory Last Values WBC 20.5 K/mm3 (4.5-11.0) H 03/09/19 03:43 RBC 2.44 M/mm3 (3.65-5.03) L 03/09/19 03:43 Hgb 7.5 gm/dl (10.1-14.3) L 03/09/19 03:43 Hct 22.5 % (30.3-42.9) L 03/09/19 03:43 MCV 92 fl (79-97) 03/09/19 03:43 MCH 31 pg (28-32) 03/09/19 03:43 MCHC 33 % (30-34) 03/09/19 03:43 RDW 18.2 % (13.2-15.2) H 03/09/19 03:43 Plt Count 356 K/mm3 (140-440) 03/09/19 03:43 Add Manual Diff Complete 03/07/19 07:56 Total Counted 100 03/07/19 07:56 Seg Neuts % (Manual) 91.0 % (40.0-70.0) H 03/07/19 07:56 3.0 % 03/07/19 07:56 3.0 % (13.4-35.0) L 03/07/19 07:56 Reactive Lymphs % (Man) 0 % 03/07/19 07:56 2.0 % (0.0-7.3) 03/07/19 07:56 0 % (0.0-4.3) 03/07/19 07:56 1.0 % (0.0-1.8) 03/07/19 07:56 0 % 03/07/19 07:56 0 % 03/07/19 07:56 0 % 03/07/19 07:56 0 % 03/07/19 07:56 Nucleated RBC % Not Reportable 03/07/19 07:56 Seg Neutrophils # Man 15.6 K/mm3 (1.8-7.7) H 03/07/19 07:56 Band Neutrophils # 0.5 K/mm3 03/07/19 07:56 0.5 K/mm3 (1.2-5.4) L 03/07/19 07:56 Abs React Lymphs (Man) 0.0 K/mm3 03/07/19 07:56 0.3 K/mm3 (0.0-0.8) 03/07/19 07:56 0.0 K/mm3 (0.0-0.4) 03/07/19 07:56 0.2 K/mm3 (0.0-0.1) H 03/07/19 07:56 0.0 K/mm3 03/07/19 07:56 0.0 K/mm3 03/07/19 07:56 0.0 K/mm3 03/07/19 07:56 Blast Cells # 0.0 K/mm3 03/07/19 07:56 WBC Morphology Not Reportable 03/07/19 07:56 Hypersegmented Neuts Not Reportable 03/07/19 07:56 Hyposegmented Neuts Not Reportable 03/07/19 07:56 Hypogranular Neuts Not Reportable 03/07/19 07:56 Not Reportable 03/07/19 07:56 Not Reportable 03/07/19 07:56 Not Reportable 03/07/19 07:56 Not Reportable 03/07/19 07:56 Not Reportable 03/07/19 07:56 Not Reportable 03/07/19 07:56 Consistent w auto 03/07/19 07:56 Not Reportable 03/07/19 07:56 Plt Clumps, EDTA Not Reportable 03/07/19 07:56 Not Reportable 03/07/19 07:56 Not Reportable 03/07/19 07:56 Not Reportable 03/07/19 07:56 Plt Morphology Comment Not Reportable 03/07/19 07:56 RBC Morphology Not Reportable 03/07/19 07:56 Dimorphic RBCs Not Reportable 03/07/19 07:56 Few 03/07/19 07:56 Not Reportable 03/07/19 07:56 Not Reportable 03/07/19 07:56 1+ 03/07/19 07:56 Not Reportable 03/07/19 07:56 Not Reportable 03/07/19 07:56 Not Reportable 03/07/19 07:56 Not Reportable 03/07/19 07:56 Not Reportable 03/07/19 07:56 Not Reportable 03/07/19 07:56 Not Reportable 03/07/19 07:56 Not Reportable 03/07/19 07:56 Not Reportable 03/07/19 07:56 Not Reportable 03/07/19 07:56 Not Reportable 03/07/19 07:56 Not Reportable 03/07/19 07:56 Not Reportable 03/07/19 07:56 Not Reportable 03/07/19 07:56 Not Reportable 03/07/19 07:56 Acanthocytes (Spur) Not Reportable 03/07/19 07:56 Rouleaux Not Reportable 03/07/19 07:56 Not Reportable 03/07/19 07:56 Not Reportable 03/07/19 07:56 Not Reportable 03/07/19 07:56 Not Reportable 03/07/19 07:56 Hem Pathologist Commnt No 03/07/19 07:56 PT 14.6 Sec. (12.2-14.9) 03/06/19 23:52 INR 1.17 (0.87-1.13) H 03/06/19 23:52 APTT 34.8 Sec. (24.2-36.6) 03/06/19 23:52 Heparin Anti-Xa Level 0.33 U.I./ml (0.3-0.7) 03/09/19 11:51 POC ABG pH 7.319 (7.35-7.45) L 03/07/19 21:24 POC ABG pCO2 36.4 (35-45) 03/07/19 21:24 POC ABG pO2 244 (80-105) H 03/07/19 21:24 POC ABG HCO3 18.7 (22-26 mml/L) 03/07/19 21:24 POC ABG Total CO2 20 (23-27mmol/L) 03/07/19 21:24 POC ABG O2 Sat 100 03/07/19 21:24 POC ABG Base Excess -7 ((-2) - (+3)mmol/L) 03/07/19 21:24 80 % 03/07/19 21:24 Sodium 141 mmol/L (137-145) 03/09/19 03:43 Potassium 4.2 mmol/L (3.6-5.0) 03/09/19 03:43 Chloride 112.0 mmol/L (98-107) H 03/09/19 03:43 Carbon Dioxide 15 mmol/L (22-30) L 03/09/19 03:43 18 mmol/L 03/09/19 03:43 BUN 37 mg/dL (7-17) H 03/09/19 03:43 0.4 mg/dL (0.7-1.2) L 03/09/19 03:43 Estimated GFR > 60 ml/min 03/09/19 03:43 93 % 03/09/19 03:43 Glucose 58 mg/dL (65-100) L 03/09/19 03:43 POC Glucose 83 (70-105) 03/07/19 20:11 Calcium 9.4 mg/dL (8.4-10.2) 03/09/19 03:43 Phosphorus 3.50 mg/dL (2.5-4.5) 03/07/19 08:17 Magnesium 2.20 mg/dL (1.7-2.3) 03/07/19 08:17 0.60 mg/dL (0.1-1.2) 03/07/19 07:56 AST 22 units/L (5-40) 03/07/19 07:56 ALT 22 units/L (7-56) 03/07/19 07:56 253 units/L (35-129) H 03/07/19 07:56 21.0 umol/L (25-60) L 03/08/19 12:02 27.00 mg/dL (0.00-1.30) H 03/07/19 15:25 5.4 g/dL (6.3-8.2) L 03/07/19 07:56 2.0 g/dL (3.9-5) L 03/07/19 07:56 0.6 % 03/07/19 07:56 Marisela (Yellow) 03/07/19 18:35 Cloudy (Clear) 03/07/19 18:35 6.0 (5.0-7.0) 03/07/19 18:35 Ur Specific [place] 1.026 (1.003-1.030) 03/07/19 18:35 100 mg/dl mg/dL (Negative) 03/07/19 18:35 Neg mg/dL (Negative) 03/07/19 18:35 Neg mg/dL (Negative) 03/07/19 18:35 Mod (Negative) 03/07/19 18:35 Neg (Negative) 03/07/19 18:35 Neg (Negative) 03/07/19 18:35 < 2.0 mg/dL (<2.0) 03/07/19 18:35 Ur Leukocyte Esterase Mod (Negative) 03/07/19 18:35 123.0 /HPF (0.0-6.0) H 03/07/19 18:35 > 182.0 /HPF (0.0-6.0) 03/07/19 18:35 U Epithel Cells (Auto) 1.0 /HPF (0-13.0) 03/07/19 18:35 4+ /HPF (Negative) 03/07/19 18:35 Hyaline Casts 10 /LPF 03/07/19 18:35 3+ /HPF 03/07/19 18:35 3+ /HPF 03/07/19 18:35 Vancomycin Trough 14.8 ug/mL (5.0-20.0) 03/09/19 03:43 Blood Type A POSITIVE 03/07/19 07:19 Antibody Screen Negative 03/07/19 07:19 Active Medications - Current Medications Current Medications: Generic Name Dose Route Start Last Admin Trade Name Freq PRN Reason Stop Dose Admin Acetaminophen 650 mg 03/06/19 23:37 03/07/19 07:34 Tylenol PO 650 mg Q4H PRN Administration Pain MILD(1-3)/Fever >100.5/DOMINGUEZ Albuterol 2.5 mg 03/06/19 23:37 Proventil IH Q4HRT PRN Shortness Of Breath Arformoterol Tartrate 15 mcg 03/07/19 08:00 03/09/19 07:37 Brovana Nebu IH 15 mcg Q12HRT JOEL Administration Budesonide 0.5 mg 03/07/19 08:00 03/09/19 07:37 Pulmicort IH 0.5 mg Q12HRT JOEL Administration Dextrose 50 ml 03/07/19 13:57 03/07/19 14:10 D50w (25gm) Syringe IV 50 ml PRN PRN Administration Hypoglycemia Hydrophilic Ointment 1 applic 03/06/19 23:31 Vaseline Lip Therapy TP Q2HR PRN Dry Lips Heparin Sodium/Sodium Chloride 25,000 unit in 500 mls @ 14.28 mls/hr 03/06/19 23:45 03/09/19 07:22 Heparin/ 0.45% Nacl-25,000 Unit/500 Ml IV 1,050 units/hr TITR JOEL 21 mls/hr Administration Protocol 714 UNITS/HR Vancomycin HCl 500 mg/ Sodium 110 mls @ 55 mls/hr 03/07/19 17:00 03/09/19 04 :29 Chloride IV 55 mls/hr Q12H JOEL Administration Cefepime HCl 2 gm in 100 mls @ 200 mls/hr 03/08/19 18:00 03/09/19 06:30 Maxipime/Ns 2 Gm/100 Ml IV 200 mls/hr Q12HR@0600,1800 JOEL Administration Protocol Morphine Sulfate 2 mg 03/06/19 23:37 03/07/19 21:55 Morphine IV 2 mg Q4H PRN Administration Pain, Moderate (4-6) Ondansetron HCl 4 mg 03/06/19 23:37 Zofran IV Q8H PRN Nausea And Vomiting Oxycodone/Acetaminophen 1 tab 03/06/19 23:37 Percocet 5/325 PO Q6H PRN Pain, Moderate (4-6) Pantoprazole Sodium 40 mg 03/07/19 10:00 03/09/19 10:33 Protonix IV 40 mg BID JOEL Administration Sodium Chloride 10 ml 03/07/19 10:00 03/09/19 10:33 Sodium Chloride Flush Syringe 10 Ml IV 10 ml BID JOEL Administration Sodium Chloride 10 ml 03/06/19 23:37 Sodium Chloride Flush Syringe 10 Ml IV PRN PRN LINE FLUSH Nutrition/Malnutrition Assess - Dietary Evaluation Nutrition/Malnutrition Findings: Nutrition Notes Start: 03/07/19 15:10 Freq: Status: Active Protocol: Document 03/07/19 15:10 RM (Rec: 03/07/19 15:21 RM [id number]) Nutrition Notes Need for Assessment generated from: MD Order,solution spec,Low BMI Initial or Follow up Assessment Current Diagnosis COPD,Hypertension,Heart Failure,Respiratory Failure Other Pertinent Diagnosis GI bleed, SIRS, Dysphagia, S/P repair infrarenal AAA rupture Current Diet No diet ordered Labs/Tests Reviewed Pertinent Medications Reviewed Height 5 ft 5 in Weight 34 kg [place] Body Weight (kg) 56.81 BMI 12.4 Subjective/Other Information Consulted for diet education. Screened for chewing difficulty and low BMI. Pt asleep on BiPAP at time of visit. No family present. Pt no appropriate for diet education at this time. Burn Absent Trauma Absent #1 Nutrition Diagnosis Predicted suboptimal energy intake Etiology COPD As Evidenced by Signs and Symptoms no diet ordered, BMI 12.5 Is patient on ventilator? No Is Patient Ambulatory and/or Out of Bed No REE-([facility]-confined to bed) 1039.368 Kcal/Kg value to use for calculation 39 Approximate Energy Requirements Using 1326 kcal/Kg Calculation Used for Recommendations Kcal/kg Additional Notes Protein Needs: 41-51g (1.2-1. 5g/kg) Fluid Needs: 1 ml/kcal Nutrition Intervention Change Diet Order: Advance diet when medically Add Supplement/Snack (indicate name/kcal Ensure Enlive 1 daily once /protein ) diet advanced Provides kCal: 350 Provides Protein (gm) 20 Goal #1 Diet advancement Anticipated Discharge Needs: Unable to determine at this time Follow-Up By: 03/11/19 Additional Comments Follow for malnutrition assessment, diet advancement, PO intakes
--- NOTE | 2019-03-09 14:37 | Progress Note ---
Assessment and Plan Acute hypoxemic respiratory failure, on continuous noninvasive ventilation. Bilateral DVT's Ruptured AAA s/p repair Metabolic Acidosis Acute intussusception Symptomatic anemia with positive stool guaiac. Acute chronic obstructive pulmonary disease exacerbation. Possible acute gastrointestinal bleed. Acute congestive heart failure exacerbation. Seceer Sepsis with Shock Systemic inflammatory response syndrome. Hypokalemia. Elevated serum troponin. Adult failure to thrive. - continue BIPAP scheduled qhs with prn daytime use - continue antiinfective's per ID rec's (Cefepime and Vancomycin) - continue anticoagulation for VTE - get ABG tomorrow and address - begin enteral nutrition via dubhoff - aspiration precautions - ST evaluation re: ? aspiration - continue wound care per WCT / RN - continue conservative volume management strategies (EF 20-25%) - continue to wean supplemental oxygen to keep O2 sats >/= 88-90%` - continue bronchodilators with pulmonary hygiene per RT - Strict intake and output monitoring - Maintenance of sleep -wake cycle - Mobility protocol for pressure ulcer prophylaxis - continue GI & VTE prophylaxis - Influenza and pneumonia vaccination per protocol ....... care plan discussed with in room also CODE STATUS: FULL CODE I have spent ( >35 ) minutes with the patient w/ >50% of the time spent counseling and/or coordinating care for this patient. Counseling topics and/or how time was spent coordinating patient's care is outlined in the impression and plan above. Subjective Date of service: 03/09/19 Principal diagnosis: Ac hypoxemic Resp failure; Severe Anemia; AE-COPD; G.I. Bleed; Septic Shock Interval history: INTERVAL HISTORY: On 02/20/19 she became acutely short of breath and hypotensive, she again had a drop in hemoglobin. CT angiogram revealed ruptured 5 cm infrarenal AAA. She was seen by vascular surgery, and was transferred to [place]. She received AAA repair at [place] on 02/21/19, has a maintained on heparin drip then transferred back to [facility]. While she was at [place] she had ultrasound of lower extremity which showed non-occlusive subacute to chronic DVT of bilateral lower extremities. She was found to have melena on 02/23, underwent flexible sigmoidoscopy and EGD followed by exploratory laparoscopy and completion of total colectomy, abdominal washout and end ileostomy on 02/24/19. Patient has been sent back to [facility] and re-admitted 03/06/19. Patient is seen today for: Acute hypoxemic Resp failure; Symptomatic anemia; AE- COPD; G.I. Bleed; Acute congestive heart failure exacerbation; Hypotension; SIRS; ruptured AAA s/p repair; Metabolic Acidosis Seen and examined at bedside; 24-hour events reviewed; nursing and respiratory care staff consulted; no adverse overnight events reported to me; resting pea cefully in bed; remains on continuous BIPAP; DHT in place but not feeding; arousable and moves all extremities; in room Objective Vital Signs - 12hr 03/09/19 03/09/19 03/09/19 02:40 02:50 03:00 Temperature Pulse Rate 97 H 98 H 97 H Pulse Rate [ Anterior Bilateral Throughout] Respiratory 24 25 H 28 H Rate Respiratory Rate [Anterior Bilateral Throughout] Blood Pressure 122/57 122/57 118/45 O2 Sat by Pulse 100 99 100 Oximetry 03/09/19 03/09/19 03/09/19 03:10 03:20 03:30 Temperature Pulse Rate 98 H 99 H 95 H Pulse Rate [ Anterior Bilateral Throughout] Respiratory 24 23 24 Rate Respiratory Rate [Anterior Bilateral Throughout] Blood Pressure 107/61 107/61 107/61 O2 Sat by Pulse 100 100 100 Oximetry 03/09/19 03/09/19 03/09/19 03:40 03:50 04:00 Temperature Pulse Rate 101 H 90 96 H Pulse Rate [ Anterior Bilateral Throughout] Respiratory 21 26 H 23 Rate Respiratory Rate [Anterior Bilateral Throughout] Blood Pressure 107/61 107/61 111/48 O2 Sat by Pulse 88 100 100 Oximetry 03/09/19 03/09/19 03/09/19 04:10 04:15 04:20 Temperature 96 F L Pulse Rate 97 H 96 H Pulse Rate [ Anterior Bilateral Throughout] Respiratory 22 23 Rate Respiratory Rate [Anterior Bilateral Throughout] Blood Pressure 118/45 118/45 O2 Sat by Pulse 100 100 Oximetry 03/09/19 03/09/19 03/09/19 04:30 04:40 04:50 Temperature Pulse Rate 99 H 99 H 95 H Pulse Rate [ Anterior Bilateral Throughout] Respiratory 23 24 24 Rate Respiratory Rate [Anterior Bilateral Throughout] Blood Pressure 118/45 118/45 118/45 O2 Sat by Pulse 100 99 100 Oximetry 03/09/19 03/09/19 03/09/19 05:00 05:10 05:20 Temperature Pulse Rate 97 H 90 95 H Pulse Rate [ Anterior Bilateral Throughout] Respiratory 25 H 23 20 Rate Respiratory Rate [Anterior Bilateral Throughout] Blood Pressure 113/47 113/47 113/47 O2 Sat by Pulse 100 100 100 Oximetry 03/09/19 03/09/19 03/09/19 05:30 05:40 05:50 Temperature Pulse Rate 88 89 96 H Pulse Rate [ Anterior Bilateral Throughout] Respiratory 29 H 27 H 23 Rate Respiratory Rate [Anterior Bilateral Throughout] Blood Pressure 113/47 113/47 113/47 O2 Sat by Pulse 100 100 100 Oximetry 03/09/19 03/09/19 03/09/19 06:00 06:10 06:20 Temperature Pulse Rate 93 H 97 H 95 H Pulse Rate [ Anterior Bilateral Throughout] Respiratory 26 H 25 H 24 Rate Respiratory Rate [Anterior Bilateral Throughout] Blood Pressure 114/47 114/47 113/47 O2 Sat by Pulse 100 99 98 Oximetry 03/09/19 03/09/19 03/09/19 06:30 06:40 06:50 Temperature Pulse Rate 95 H 101 H 99 H Pulse Rate [ Anterior Bilateral Throughout] Respiratory 23 22 33 H Rate Respiratory Rate [Anterior Bilateral Throughout] Blood Pressure 113/47 113/47 113/47 O2 Sat by Pulse 100 100 98 Oximetry 03/09/19 03/09/19 03/09/19 07:00 07:10 07:20 Temperature Pulse Rate 98 H 93 H 95 H Pulse Rate [ Anterior Bilateral Throughout] Respiratory 28 H 27 H 30 H Rate Respiratory Rate [Anterior Bilateral Throughout] Blood Pressure 105/66 105/66 114/47 O2 Sat by Pulse 97 97 100 Oximetry 03/09/19 03/09/19 03/09/19 07:30 07:38 07:40 Temperature Pulse Rate 90 92 H 96 H Pulse Rate [ 88 Anterior Bilateral Throughout] Respiratory 18 28 H 24 Rate Respiratory 27 H Rate [Anterior Bilateral Throughout] Blood Pressure 114/47 105/66 114/47 O2 Sat by Pulse 100 100 100 Oximetry 03/09/19 03/09/19 03/09/19 07:48 07:50 08:00 Temperature 95.4 F L Pulse Rate 93 H 96 H Pulse Rate [ 96 H Anterior Bilateral Throughout] Respiratory 24 22 Rate Respiratory 28 H Rate [Anterior Bilateral Throughout] Blood Pressure 105/66 115/58 O2 Sat by Pulse 100 100 Oximetry 06/03/09/19 03/09/19 08:10 08:20 08:30 Temperature Pulse Rate 89 96 H 96 H Pulse Rate [ Anterior Bilateral Throughout] Respiratory 21 21 18 Rate Respiratory Rate [Anterior Bilateral Throughout] Blood Pressure 115/58 115/58 115/58 O2 Sat by Pulse 100 100 100 Oximetry 03/09/19 03/09/19 03/09/19 08:40 08:50 09:00 Temperature Pulse Rate 94 H 96 H 99 H Pulse Rate [ Anterior Bilateral Throughout] Respiratory 19 22 30 H Rate Respiratory Rate [Anterior Bilateral Throughout] Blood Pressure 115/58 115/58 126/59 O2 Sat by Pulse 100 100 100 Oximetry 03/09/19 03/09/19 03/09/19 09:10 09:20 09:30 Temperature Pulse Rate 95 H 97 H 96 H Pulse Rate [ Anterior Bilateral Throughout] Respiratory 20 22 22 Rate Respiratory Rate [Anterior Bilateral Throughout] Blood Pressure 126/59 126/59 126/59 O2 Sat by Pulse 100 100 100 Oximetry 03/09/19 03/09/19 03/09/19 09:40 09:50 10:00 Temperature Pulse Rate 95 H 96 H 91 H Pulse Rate [ Anterior Bilateral Throughout] Respiratory 20 26 H 21 Rate Respiratory Rate [Anterior Bilateral Throughout] Blood Pressure 126/59 126/59 120/49 O2 Sat by Pulse 96 100 100 Oximetry 03/09/19 03/09/19 03/09/19 10:10 10:20 10:30 Temperature Pulse Rate 95 H 94 H 93 H Pulse Rate [ Anterior Bilateral Throughout] Respiratory 22 22 21 Rate Respiratory Rate [Anterior Bilateral Throughout] Blood Pressure 120/49 120/49 120/49 O2 Sat by Pulse 100 100 100 Oximetry 03/09/19 03/09/19 10:40 12:00 Temperature 96.9 F L Pulse Rate 97 H Pulse Rate [ Anterior Bilateral Throughout] Respiratory 28 H Rate Respiratory Rate [Anterior Bilateral Throughout] Blood Pressure 120/49 O2 Sat by Pulse 100 Oximetry Constitutional: appears uncomfortable, other (petite elderly looking CF, normocephalic and atraumatic with increased resp effort on continuous BIPAP at rest) Eyes: non-icteric ENT: oropharynx dry, other (BIPAP FFM) Neck: supple, no lymphadenopathy, no JVD Effort: mildly labored Ascultation: Bilateral: diminished breath sounds, rhonchi Percussion: Bilateral: not dull Cardiovascular: regular rate and rhythm, murmur noted (systolic) Gastrointestinal: normoactive bowel sounds, soft, non-tender, non-distended Integumentary: other (poor turgor) Extremities: no cyanosis, no edema, pink and warm, pulses normal, no ischemia or petechiae Neurologic: non-focal exam (grossly), pupils equal and round, CN II-XII normal, other (lethargic) CBC and BMP: 03/10/19 09:41 03/10/19 09:41 ABG, PT/INR, D-dimer: ABG POC ABG pH 7.319 (7.35-7.45) L 03/07/19 21:24 POC ABG pCO2 36.4 (35-45) 03/07/19 21:24 POC ABG pO2 244 (80-105) H 03/07/19 21:24 POC ABG HCO3 18.7 (22-26 mml/L) 03/07/19 21:24 POC ABG Total CO2 20 (23-27mmol/L) 03/07/19 21:24 POC ABG O2 Sat 100 03/07/19 21:24 PT/INR, D-dimer PT 14.6 Sec. (12.2-14.9) 03/06/19 23:52 INR 1.17 (0.87-1.13) H 03/06/19 23:52 Abnormal lab findings: Abnormal Labs 03/06/19 03/06/19 03/07/19 23:52 23:52 05:57 WBC RBC Hgb 9.0 L Hct 27.6 L RDW Seg Neuts % (Manual) Lymphocytes % (Manual) Seg Neutrophils # Man Lymphocytes # (Manual) Basophils # (Manual) INR 1.17 H Heparin Anti-Xa Level POC ABG pH 7.249 L POC ABG pCO2 49.2 H POC ABG pO2 73 L Chloride Carbon Dioxide BUN Creatinine Glucose Alkaline Phosphatase Ammonia C-Reactive Protein Total Protein Albumin Urine WBC (Auto) 03/07/19 03/07/19 03/07/19 07:19 07:56 07:56 WBC 17.1 H RBC 3.13 L Hgb 9.5 L Hct 30.1 L RDW 19.5 H Seg Neuts % (Manual) 91.0 H Lymphocytes % (Manual) 3.0 L Seg Neutrophils # Man 15.6 H Lymphocytes # (Manual) 0.5 L Basophils # (Manual) 0.2 H INR Heparin Anti-Xa Level < 0.10 L POC ABG pH POC ABG pCO2 POC ABG pO2 Chloride 110.7 H Carbon Dioxide 21 L BUN 21 H Creatinine 0.2 L Glucose 63 L Alkaline Phosphatase 253 H Ammonia C-Reactive Protein Total Protein 5.4 L Albumin 2.0 L Urine WBC (Auto) 03/07/19 03/07/19 03/07/19 14:13 15:25 18:35 WBC RBC Hgb Hct RDW Seg Neuts % (Manual) Lymphocytes % (Manual) Seg Neutrophils # Man Lymphocytes # (Manual) Basophils # (Manual) INR Heparin Anti-Xa Level POC ABG pH 7.317 L POC ABG pCO2 34.3 L POC ABG pO2 50 L Chloride Carbon Dioxide BUN Creatinine Glucose Alkaline Phosphatase Ammonia C-Reactive Protein 27.00 H Total Protein Albumin Urine WBC (Auto) 123.0 H 03/07/19 03/08/19 03/08/19 21:24 00:23 02:25 WBC 20.2 H RBC 2.85 L Hgb 8.7 L Hct 26.9 L RDW 18.2 H Seg Neuts % (Manual) Lymphocytes % (Manual) Seg Neutrophils # Man Lymphocytes # (Manual) Basophils # (Manual) INR Heparin Anti-Xa Level 0.12 L POC ABG pH 7.319 L POC ABG pCO2 POC ABG pO2 244 H Chloride Carbon Dioxide BUN Creatinine Glucose Alkaline Phosphatase Ammonia C-Reactive Protein Total Protein Albumin Urine WBC (Auto) 03/08/19 03/08/19 03/08/19 02:25 12:02 12:02 WBC RBC Hgb Hct RDW Seg Neuts % (Manual) Lymphocytes % (Manual) Seg Neutrophils # Man Lymphocytes # (Manual) Basophils # (Manual) INR Heparin Anti-Xa Level 0.21 L POC ABG pH POC ABG pCO2 POC ABG pO2 Chloride 111.9 H Carbon Dioxide 17 L BUN 33 H Creatinine 0.3 L Glucose 63 L Alkaline Phosphatase Ammonia 21.0 L C-Reactive Protein Total Protein Albumin Urine WBC (Auto) 03/08/19 03/09/19 03/09/19 18:50 03:43 03:43 WBC 20.5 H RBC 2.44 L Hgb 7.5 L Hct 22.5 L RDW 18.2 H Seg Neuts % (Manual) Lymphocytes % (Manual) Seg Neutrophils # Man Lymphocytes # (Manual) Basophils # (Manual) INR Heparin Anti-Xa Level 0.13 L POC ABG pH POC ABG pCO2 POC ABG pO2 Chloride 112.0 H Carbon Dioxide 15 L BUN 37 H Creatinine 0.4 L Glucose 58 L Alkaline Phosphatase Ammonia C-Reactive Protein Total Protein Albumin Urine WBC (Auto) 03/09/19 03:43 WBC RBC Hgb Hct RDW Seg Neuts % (Manual) Lymphocytes % (Manual) Seg Neutrophils # Man Lymphocytes # (Manual) Basophils # (Manual) INR Heparin Anti-Xa Level 0.15 L POC ABG pH POC ABG pCO2 POC ABG pO2 Chloride Carbon Dioxide BUN Creatinine Glucose Alkaline Phosphatase Ammonia C-Reactive Protein Total Protein Albumin Urine WBC (Auto) Chest x-ray: image reviewed
[2019-03-09] MEDS ORDERED: SODIUM BICARBONATE 100 MEQ in STERILE WATER 1,000 ML IV SCH (16:00)
[2019-03-10] MEDS: HEPARIN/ 0.45% NACL-25,000 UNIT/500 ML 25,000 UNIT/500 ML BAG IV SCH (03:58)
[2019-03-10] MEDS: VANCOMYCIN 500 MG in NACL 0.9% 100 ML IV SCH ×2 (05:31→18:35)
[2019-03-10] MEDS: MAXIPIME/NS 2 GM/100 ML 2 GM/100 ML BAG IV SCH ×2 (05:31→17:03)
[2019-03-10] MEDS: PULMICORT IH SCH ×2 (07:43→21:23)
[2019-03-10] MEDS: BROVANA NEBU IH SCH ×2 (07:43→21:23)
[2019-03-10] MEDS: MORPHINE IV PRN (08:50)
--- NOTE | 2019-03-10 09:16 | Progress Note ---
Assessment and Plan Assessment and plan: Patient is 68 yo female with PMHx of CHF, COPD, who was brought to the ER by EMS initially on 02/03/19 after a fall at home, altered mental status, respiratory distress. Per EMS patient was found in severe respiratory distress, laying on the floor and covered in her feces. According to EMS the had asked a neighbor to call EMS because the patient fell on the floor and he was unable to pick her up. He states that she had been sick for a few days, she had trouble breathing, and he had been taking a lot of "goody powder" for pain. The patient was found to be confused, lethargic, hypotensive, hypothermic, tachypneic, with hemoglobin of 1.9, severe anemia. She was admitted -She was transfused, treated for severe anemia, COPD exacerbation, CHF. Respiratory failure worsened requiring intubation. She received PPI, EGD was planned but the patient was unstable to get the test. She also developed bowel obstruction, received exploratory laparoscopy, right hemicolectomy for cecal volvulus and large bowel obstruction. The patient was extubated on 02/04/19. Patient was improving and placed on a pured diet. However on 02/20/19 she became acutely short of breath and hypotensive, she again had a drop in hemoglobin. CT angiogram revealed ruptured 5 cm infrarenal AAA. She was seen by vascular surgery, and was transferred to [facility]. She received AAA repair at [facility] on 02/21/19. While she was at [facility] she had ultrasound of lower extremity which showed non-occlusive subacute to chronic DVT of bilateral lower extremities, put on Heparin drip. She was found to have melena on 02/23, underwent flexible sigmoidoscopy and EGD followed by exploratory laparoscopy and completion of total colectomy, abdominal washout and end ileostomy on 02/24/19. Patient has been sent back to [facility] and re-admitted 03/06/19. Toxic metabolic encephalopathy Apparently the patient has been minimally responsive but every before she was transferred Infrarenal AAA rupture -sp surgical repair at [facility], vasc sx consulted Bilat LE DVT cont heparin Drip, will need to transition to oral meds when safe to do so, will defer to vasc sx and hematology Sepsis, present on admission On Cefepime and vancomycin fever of 101.2 on 6/20 Blood cultures drawn broad spectrum abx, ID consulted, following Acute resp failure with hypoxia has been on BIPAP. 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 Full code status. Had prolonged discussion with family before. History Interval history: Patient transferred here from [facility] 03/07/19 Fever resolved Hospitalist Physical - Physical exam Narrative exam: Gen: Not in acute distress, lying in bed,malnourished, very ill looking, Oxygen by high flow NC HEENT: Normocephalic, atraumatic Neck: supple, no JVD Heart: S1 and S2 reg, no murmurs, rubs or gallop Lungs: Bilateral crackles, decreased breath sounds, no wheeze Abd: soft, non tender, non distended, normal BS, stomy bag Ext: No edema, no clubbing, no cyanosis, Neuro: Lethargic, moves all ext - Constitutional Vitals: Temp Pulse Resp BP Pulse Ox 97.7 F 112 H 28 H 128/68 99 03/10/19 07:59 03/10/19 07:54 03/10/19 07:54 03/10/19 07:44 03/10/19 07:44 General appearance: Present: no acute distress Results - Labs CBC & Chem 7: 03/09/19 03:43 03/09/19 03:43 Labs: Laboratory Last Values WBC 20.5 K/mm3 (4.5-11.0) H 03/09/19 03:43 RBC 2.44 M/mm3 (3.65-5.03) L 03/09/19 03:43 Hgb 7.5 gm/dl (10.1-14.3) L 03/09/19 03:43 Hct 22.5 % (30.3-42.9) L 03/09/19 03:43 MCV 92 fl (79-97) 03/09/19 03:43 MCH 31 pg (28-32) 03/09/19 03:43 MCHC 33 % (30-34) 03/09/19 03:43 RDW 18.2 % (13.2-15.2) H 03/09/19 03:43 Plt Count 356 K/mm3 (140-440) 03/09/19 03:43 Add Manual Diff Complete 03/07/19 07:56 Total Counted 100 03/07/19 07:56 Seg Neuts % (Manual) 91.0 % (40.0-70.0) H 03/07/19 07:56 3.0 % 03/07/19 07:56 3.0 % (13.4-35.0) L 03/07/19 07:56 Reactive Lymphs % (Man) 0 % 03/07/19 07:56 2.0 % (0.0-7.3) 03/07/19 07:56 0 % (0.0-4.3) 03/07/19 07:56 1.0 % (0.0-1.8) 03/07/19 07:56 0 % 03/07/19 07:56 0 % 03/07/19 07:56 0 % 03/07/19 07:56 0 % 03/07/19 07:56 Nucleated RBC % Not Reportable 03/07/19 07:56 Seg Neutrophils # Man 15.6 K/mm3 (1.8-7.7) H 03/07/19 07:56 Band Neutrophils # 0.5 K/mm3 03/07/19 07:56 0.5 K/mm3 (1.2-5.4) L 03/07/19 07:56 Abs React Lymphs (Man) 0.0 K/mm3 03/07/19 07:56 0.3 K/mm3 (0.0-0.8) 03/07/19 07:56 0.0 K/mm3 (0.0-0.4) 03/07/19 07:56 0.2 K/mm3 (0.0-0.1) H 03/07/19 07:56 0.0 K/mm3 03/07/19 07:56 0.0 K/mm3 03/07/19 07:56 0.0 K/mm3 03/07/19 07:56 Blast Cells # 0.0 K/mm3 03/07/19 07:56 WBC Morphology Not Reportable 03/07/19 07:56 Hypersegmented Neuts Not Reportable 03/07/19 07:56 Hyposegmented Neuts Not Reportable 03/07/19 07:56 Hypogranular Neuts Not Reportable 03/07/19 07:56 Not Reportable 03/07/19 07:56 Not Reportable 03/07/19 07:56 Not Reportable 03/07/19 07:56 Not Reportable 03/07/19 07:56 Not Reportable 03/07/19 07:56 Not Reportable 03/07/19 07:56 Consistent w auto 03/07/19 07:56 Not Reportable 03/07/19 07:56 Plt Clumps, EDTA Not Reportable 03/07/19 07:56 Not Reportable 03/07/19 07:56 Not Reportable 03/07/19 07:56 Not Reportable 03/07/19 07:56 Plt Morphology Comment Not Reportable 03/07/19 07:56 RBC Morphology Not Reportable 03/07/19 07:56 Dimorphic RBCs Not Reportable 03/07/19 07:56 Few 03/07/19 07:56 Not Reportable 03/07/19 07:56 Not Reportable 03/07/19 07:56 1+ 03/07/19 07:56 Not Reportable 03/07/19 07:56 Not Reportable 03/07/19 07:56 Not Reportable 03/07/19 07:56 Not Reportable 03/07/19 07:56 Not Reportable 03/07/19 07:56 Not Reportable 03/07/19 07:56 Not Reportable 03/07/19 07:56 Not Reportable 03/07/19 07:56 Not Reportable 03/07/19 07:56 Not Reportable 03/07/19 07:56 Not Reportable 03/07/19 07:56 Not Reportable 03/07/19 07:56 Not Reportable 03/07/19 07:56 Not Reportable 03/07/19 07:56 Not Reportable 03/07/19 07:56 Acanthocytes (Spur) Not Reportable 03/07/19 07:56 Rouleaux Not Reportable 03/07/19 07:56 Not Reportable 03/07/19 07:56 Not Reportable 03/07/19 07:56 Not Reportable 03/07/19 07:56 Not Reportable 03/07/19 07:56 Hem Pathologist Commnt No 03/07/19 07:56 PT 14.6 Sec. (12.2-14.9) 03/06/19 23:52 INR 1.17 (0.87-1.13) H 03/06/19 23:52 APTT 34.8 Sec. (24.2-36.6) 03/06/19 23:52 Heparin Anti-Xa Level 0.33 U.I./ml (0.3-0.7) 03/09/19 11:51 POC ABG pH 7.319 (7.35-7.45) L 03/07/19 21:24 POC ABG pCO2 36.4 (35-45) 03/07/19 21:24 POC ABG pO2 244 (80-105) H 03/07/19 21:24 POC ABG HCO3 18.7 (22-26 mml/L) 03/07/19 21:24 POC ABG Total CO2 20 (23-27mmol/L) 03/07/19 21:24 POC ABG O2 Sat 100 03/07/19 21:24 POC ABG Base Excess -7 ((-2) - (+3)mmol/L) 03/07/19 21:24 80 % 03/07/19 21:24 Sodium 141 mmol/L (137-145) 03/09/19 03:43 Potassium 4.2 mmol/L (3.6-5.0) 03/09/19 03:43 Chloride 112.0 mmol/L (98-107) H 03/09/19 03:43 Carbon Dioxide 15 mmol/L (22-30) L 03/09/19 03:43 18 mmol/L 03/09/19 03:43 BUN 37 mg/dL (7-17) H 03/09/19 03:43 0.4 mg/dL (0.7-1.2) L 03/09/19 03:43 Estimated GFR > 60 ml/min 03/09/19 03:43 93 % 03/09/19 03:43 Glucose 58 mg/dL (65-100) L 03/09/19 03:43 POC Glucose 83 (70-105) 03/07/19 20:11 Calcium 9.4 mg/dL (8.4-10.2) 03/09/19 03:43 Phosphorus 3.50 mg/dL (2.5-4.5) 03/07/19 08:17 Magnesium 2.20 mg/dL (1.7-2.3) 03/07/19 08:17 0.60 mg/dL (0.1-1.2) 03/07/19 07:56 AST 22 units/L (5-40) 03/07/19 07:56 ALT 22 units/L (7-56) 03/07/19 07:56 253 units/L (35-129) H 03/07/19 07:56 21.0 umol/L (25-60) L 03/08/19 12:02 27.00 mg/dL (0.00-1.30) H 03/07/19 15:25 5.4 g/dL (6.3-8.2) L 03/07/19 07:56 2.0 g/dL (3.9-5) L 03/07/19 07:56 0.6 % 03/07/19 07:56 Marisela (Yellow) 03/07/19 18:35 Cloudy (Clear) 03/07/19 18:35 6.0 (5.0-7.0) 03/07/19 18:35 Ur Specific [place] 1.026 (1.003-1.030) 03/07/19 18:35 100 mg/dl mg/dL (Negative) 03/07/19 18:35 Neg mg/dL (Negative) 03/07/19 18:35 Neg mg/dL (Negative) 03/07/19 18:35 Mod (Negative) 03/07/19 18:35 Neg (Negative) 03/07/19 18:35 Neg (Negative) 03/07/19 18:35 < 2.0 mg/dL (<2.0) 03/07/19 18:35 Ur Leukocyte Esterase Mod (Negative) 03/07/19 18:35 123.0 /HPF (0.0-6.0) H 03/07/19 18:35 > 182.0 /HPF (0.0-6.0) 03/07/19 18:35 U Epithel Cells (Auto) 1.0 /HPF (0-13.0) 03/07/19 18:35 4+ /HPF (Negative) 03/07/19 18:35 Hyaline Casts 10 /LPF 03/07/19 18:35 3+ /HPF 03/07/19 18:35 3+ /HPF 03/07/19 18:35 Vancomycin Trough 14.8 ug/mL (5.0-20.0) 03/09/19 03:43 Blood Type A POSITIVE 03/07/19 07:19 Antibody Screen Negative 03/07/19 07:19 Active Medications - Current Medications Current Medications: Generic Name Dose Route Start Last Admin Trade Name Freq PRN Reason Stop Dose Admin Acetaminophen 650 mg 03/06/19 23:37 03/07/19 07:34 Tylenol PO 650 mg Q4H PRN Administration Pain MILD(1-3)/Fever >100.5/DOMINGUEZ Albuterol 2.5 mg 03/06/19 23:37 Proventil IH Q4HRT PRN Shortness Of Breath Arformoterol Tartrate 15 mcg 03/07/19 08:00 03/10/19 07:43 Brovana Nebu IH 15 mcg Q12HRT JOEL Administration Budesonide 0.5 mg 03/07/19 08:00 03/10/19 07:43 Pulmicort IH 0.5 mg Q12HRT JOEL Administration Dextrose 50 ml 03/07/19 13:57 03/07/19 14:10 D50w (25gm) Syringe IV 50 ml PRN PRN Administration Hypoglycemia Hydrophilic Ointment 1 applic 03/06/19 23:31 Vaseline Lip Therapy TP Q2HR PRN Dry Lips Heparin Sodium/Sodium Chloride 25,000 unit in 500 mls @ 14.28 mls/hr 03/06/19 23:45 03/10/19 03:58 Heparin/ 0.45% Nacl-25,000 Unit/500 Ml IV 1,050 units/hr TITR JOEL 21 mls/hr Administration Protocol 714 UNITS/HR Vancomycin HCl 500 mg/ Sodium 110 mls @ 55 mls/hr 03/07/19 17:00 03/10/19 05:31 Chloride IV 55 mls/hr Q12H JOEL Administration Cefepime HCl 2 gm in 100 mls @ 200 mls/hr 03/08/19 18:00 03/10/19 05:31 Maxipime/Ns 2 Gm/100 Ml IV 200 mls/hr Q12HR@0600,1800 JOEL Administration Protocol Sodium Bicarbonate 100 meq/ 1,100 mls @ 50 mls/hr 03/09/19 16:00 03/09/19 18:24 Sterile Water IV 50 mls/hr DIRECT JOEL Administration Morphine Sulfate 2 mg 03/06/19 23:37 03/10/19 08:50 Morphine IV 2 mg Q4H PRN Administration Pain, Moderate (4-6) Ondansetron HCl 4 mg 03/06/19 23:37 Zofran IV Q8H PRN Nausea And Vomiting Oxycodone/Acetaminophen 1 tab 03/06/19 23:37 Percocet 5/325 PO Q6H PRN Pain, Moderate (4-6) Pantoprazole Sodium 40 mg 03/07/19 10:00 03/09/19 21:13 Protonix IV 40 mg BID JOEL Administration Sodium Chloride 10 ml 03/07/19 10:00 03/09/19 21:13 Sodium Chloride Flush Syringe 10 Ml IV 10 ml BID JOEL Administration Sodium Chloride 10 ml 03/06/19 23:37 Sodium Chloride Flush Syringe 10 Ml IV PRN PRN LINE FLUSH Nutrition/Malnutrition Assess - Dietary Evaluation Nutrition/Malnutrition Findings: Nutrition Notes Start: 03/07/19 15:10 Freq: Status: Active Protocol: Document 03/07/19 15:10 RM (Rec: 03/07/19 15:21 RM [id number]) Nutrition Notes Need for Assessment 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 Screened for chewing difficulty and low BMI. Pt asleep on BiPAP at time of visit. No family present. Pt no appropriate for diet education at this time. Burn Absent Trauma Absent #1 Nutrition Diagnosis Predicted suboptimal energy intake Etiology COPD As Evidenced by Signs and Symptoms no diet ordered, BMI 12.5 Is patient on ventilator? No Is Patient Ambulatory and/or Out of Bed No REE-([facility]-confined to bed) 1039.368 Kcal/Kg value to use for calculation 39 Approximate Energy Requirements Using 1326 kcal/Kg Calculation Used for Recommendations Kcal/kg Additional Notes Protein Needs: 41-51g (1.2-1. 5g/kg) Fluid Needs: 1 ml/kcal Nutrition Intervention Change Diet Order: Advance diet when medically Add Supplement/Snack (indicate name/kcal Ensure Enlive 1 daily once /protein ) diet advanced Provides kCal: 350 Provides Protein (gm) 20 Goal #1 Diet advancement Anticipated Discharge Needs: Unable to determine at this time Follow-Up By: 03/11/19 Additional Comments Follow for malnutrition assessment, diet advancement, PO intakes
[2019-03-10] MEDS: PROTONIX IV SCH ×2 (10:00→22:10)
[2019-03-10 10:49] LABS: Hemoglobin 7.8 gm/dl (10.1-14.3); Mean Corpuscular HGB Conc 31 % (30-34); Mean Corpuscular Volume 98 fl (79-97); Platelet Count 333 K/mm3 (140-440); Red Blood Count 2.55 M/mm3 (3.65-5.03); Red Cell Distribution Width 19.1 % (13.2-15.2)
[2019-03-10 11:10] LABS: BUN/Creatinine Ratio 117; Blood Urea Nitrogen 35 mg/dL (7-17); Calcium 9.4 mg/dL (8.4-10.2); Hemolysis Index 17
--- NOTE | 2019-03-10 12:06 | Progress Note ---
Assessment and Plan - Patient Problems (1) Cecal volvulus Current Visit: No Status: Acute Plan to address problem: Pt declining. broke down and stated that she is suffering and he does not believe that she will ever go home. We discussed this in more detail. My impression is that he does not want her coded if that should occur and he wants her to be comfortable. I passed on my conversation and impression to Dr. Garcia. If full care is continued, consideration should be given to starting TPN as tube feeds are not being given due to appropriate concerns about aspiration risk. Please call with questions. Subjective Date of service: 03/10/19 Patient Reports: Positive: no new complaints Objective Vital Signs - 12hr 03/10/19 03/10/19 03/10/19 00:10 00:20 00:30 Temperature Pulse Rate 103 H 101 H 101 H Pulse Rate [ Anterior Bilateral Throughout] Pulse Rate [ From Monitor] Respiratory 22 21 21 Rate Respiratory Rate [Anterior Bilateral Throughout] Blood Pressure 107/43 107/43 107/43 O2 Sat by Pulse 98 99 100 Oximetry 03/10/19 03/10/19 03/10/19 00:40 00:50 01:00 Temperature Pulse Rate 102 H 103 H 102 H Pulse Rate [ Anterior Bilateral Throughout] Pulse Rate [ From Monitor] Respiratory 22 22 22 Rate Respiratory Rate [Anterior Bilateral Throughout] Blood Pressure 115/53 115/53 104/44 O2 Sat by Pulse 100 100 100 Oximetry 03/10/19 03/10/19 03/10/19 01:10 01:20 01:30 Temperature Pulse Rate 103 H 102 H 103 H Pulse Rate [ Anterior Bilateral Throughout] Pulse Rate [ From Monitor] Respiratory 22 20 21 Rate Respiratory Rate [Anterior Bilateral Throughout] Blood Pressure 104/44 104/44 104/44 O2 Sat by Pulse 100 100 100 Oximetry 03/10/19 03/10/19 03/10/19 01:40 01:50 02:00 Temperature Pulse Rate 103 H 105 H 103 H Pulse Rate [ Anterior Bilateral Throughout] Pulse Rate [ From Monitor] Respiratory 21 20 20 Rate Respiratory Rate [Anterior Bilateral Throughout] Blood Pressure 104/44 104/44 104/44 O2 Sat by Pulse 100 100 100 Oximetry 03/10/19 03/10/19 03/10/19 02:10 02:20 02:30 Temperature Pulse Rate 104 H 105 H 105 H Pulse Rate [ Anterior Bilateral Throughout] Pulse Rate [ From Monitor] Respiratory 23 23 Rate Respiratory Rate [Anterior Bilateral Throughout] Blood Pressure 116/51 116/51 116/51 O2 Sat by Pulse 100 100 100 Oximetry 03/10/19 03/10/19 03/10/19 02:40 02:50 03:00 Temperature Pulse Rate 105 H 104 H 107 H Pulse Rate [ Anterior Bilateral Throughout] Pulse Rate [ From Monitor] Respiratory 23 Rate Respiratory Rate [Anterior Bilateral Throughout] Blood Pressure 116/51 116/51 118/51 O2 Sat by Pulse 100 100 100 Oximetry 03/10/19 03/10/19 03/10/19 03:10 03:15 03:20 Temperature Pulse Rate 107 H 109 H Pulse Rate [ Anterior Bilateral Throughout] Pulse Rate [ From Monitor] Respiratory 22 25 H Rate Respiratory Rate [Anterior Bilateral Throughout] Blood Pressure 118/51 118/51 116/51 O2 Sat by Pulse 100 100 93 Oximetry 03/10/19 03/10/19 03/10/19 03:30 03:40 03:50 Temperature Pulse Rate 107 H Pulse Rate [ Anterior Bilateral Throughout] Pulse Rate [ From Monitor] Respiratory 21 Rate Respiratory Rate [Anterior Bilateral Throughout] Blood Pressure 116/51 116/51 122/64 O2 Sat by Pulse 99 99 97 Oximetry 03/10/19 03/10/19 03/10/19 04:00 04:10 04:20 Temperature 97.4 F L Pulse Rate 106 H 105 H 104 H Pulse Rate [ Anterior Bilateral Throughout] Pulse Rate [ 103 H From Monitor] Respiratory 26 H 25 H 26 H Rate Respiratory Rate [Anterior Bilateral Throughout] Blood Pressure 131/61 131/61 122/64 O2 Sat by Pulse 98 97 99 Oximetry 03/10/19 03/10/19 03/10/19 04:30 04:40 04:50 Temperature Pulse Rate 104 H 105 H 106 H Pulse Rate [ Anterior Bilateral Throughout] Pulse Rate [ From Monitor] Respiratory 26 H 26 H 26 H Rate Respiratory Rate [Anterior Bilateral Throughout] Blood Pressure 122/64 122/64 131/61 O2 Sat by Pulse 99 99 99 Oximetry 03/10/19 03/10/19 03/10/19 05:00 05:10 05:20 Temperature Pulse Rate 104 H 106 H 103 H Pulse Rate [ Anterior Bilateral Throughout] Pulse Rate [ From Monitor] Respiratory 25 H 26 H 17 Rate Respiratory Rate [Anterior Bilateral Throughout] Blood Pressure 125/68 125/68 125/68 O2 Sat by Pulse 100 97 99 Oximetry 03/10/19 03/10/19 03/10/19 05:30 05:40 05:50 Temperature Pulse Rate 109 H 107 H 108 H Pulse Rate [ Anterior Bilateral Throughout] Pulse Rate [ From Monitor] Respiratory 26 H 24 27 H Rate Respiratory Rate [Anterior Bilateral Throughout] Blood Pressure 125/68 125/68 125/68 O2 Sat by Pulse 100 99 99 Oximetry 03/10/19 03/10/19 03/10/19 06:00 06:10 07:43 Temperature Pulse Rate 111 H 108 H Pulse Rate [ 111 H Anterior Bilateral Throughout] Pulse Rate [ From Monitor] Respiratory 27 H 26 H Rate Respiratory 28 H Rate [Anterior Bilateral Throughout] Blood Pressure 127/63 127/63 O2 Sat by Pulse 98 98 Oximetry 03/10/19 03/10/19 03/10/19 07:44 07:54 07:59 Temperature 97.7 F Pulse Rate 110 H Pulse Rate [ 112 H Anterior Bilateral Throughout] Pulse Rate [ From Monitor] Respiratory 27 H Rate Respiratory 28 H Rate [Anterior Bilateral Throughout] Blood Pressure 128/68 O2 Sat by Pulse 99 Oximetry 03/10/19 03/10/19 03/10/19 09:50 10:00 11:00 Temperature 97.5 F L Pulse Rate 113 H Pulse Rate [ Anterior Bilateral Throughout] Pulse Rate [ From Monitor] Respiratory 34 H Rate Respiratory Rate [Anterior Bilateral Throughout] Blood Pressure 122/58 O2 Sat by Pulse 95 97 Oximetry - General physical appearance no distress, no pain, other (minimally responsive) - Respiratory other (BiPap mask currently on. +increased work of breathing) - Abdomen soft, not distended - Labs 03/10/19 09:41 03/10/19 09:41 Diabetes panel 03/10/19 Range/Units 09:41 Sodium 144 (137-145) mmol/L Potassium 3.7 (3.6-5.0) mmol/L Chloride 116.0 H (98-107) mmol/L Carbon Dioxide 12 L (22-30) mmol/L BUN 35 H (7-17) mg/dL Creatinine 0.3 L (0.7-1.2) mg/dL Glucose 42 L (65-100) mg/dL Calcium 9.4 (8.4-10.2) mg/dL Calcium panel 03/10/19 Range/Units 09:41 Calcium 9.4 (8.4-10.2) mg/dL Pituitary panel 03/10/19 Range/Units 09:41 Sodium 144 (137-145) mmol/L Potassium 3.7 (3.6-5.0) mmol/L Chloride 116.0 H (98-107) mmol/L Carbon Dioxide 12 L (22-30) mmol/L BUN 35 H (7-17) mg/dL Creatinine 0.3 L (0.7-1.2) mg/dL Glucose 42 L (65-100) mg/dL Calcium 9.4 (8.4-10.2) mg/dL Adrenal panel 03/10/19 Range/Units 09:41 Sodium 144 (137-145) mmol/L Potassium 3.7 (3.6-5.0) mmol/L Chloride 116.0 H (98-107) mmol/L Carbon Dioxide 12 L (22-30) mmol/L BUN 35 H (7-17) mg/dL Creatinine 0.3 L (0.7-1.2) mg/dL Glucose 42 L (65-100) mg/dL Calcium 9.4 (8.4-10.2) mg/dL
[2019-03-10] MEDS ORDERED: D50W (25GM) Vial IV STA (16:49)
[2019-03-10] MEDS ORDERED: SODIUM BICARBONATE 150 MEQ in D5W 1,000 ML IV SCH (17:00)
[2019-03-10] MEDS: D50W (25GM) Syringe IV PRN (17:01)
[2019-03-10] MEDS ORDERED: D50W (25GM) Syringe IV STA (17:03)
--- NOTE | 2019-03-10 17:41 | Progress Note ---
Assessment and Plan Acute hypoxemic respiratory failure, on continuous noninvasive ventilation. Bilateral DVT's Ruptured AAA s/p repair Metabolic Acidosis Acute intussusception Symptomatic anemia with positive stool guaiac. Acute chronic obstructive pulmonary disease exacerbation. Possible acute gastrointestinal bleed. Acute congestive heart failure exacerbation. Seceer Sepsis with Shock Systemic inflammatory response syndrome. Hypokalemia. Elevated serum troponin. Adult failure to thrive. - transition BIPAP to scheduled qhs with prn daytime use as tolerated - continue antiinfective's per ID rec's (Cefepime and Vancomycin) - continue anticoagulation for VTE - get ABG tomorrow and address - begin enteral nutrition via dubhoff (discussed with RN) - continue aspiration precautions - ST evaluation ongoing re: ? aspiration - continue wound care per WCT / RN - continue conservative volume management strategies (EF 20-25%) - continue to wean supplemental oxygen to keep O2 sats >/= 88-90%` - continue bronchodilators with pulmonary hygiene per RT - Strict intake and output monitoring - Maintenance of sleep -wake cycle - Mobility protocol for pressure ulcer prophylaxis - continue GI & VTE prophylaxis - Influenza and pneumonia vaccination per protocol ....... care plan discussed with in room also CODE STATUS: FULL CODE I have spent ( >35 ) minutes with the patient w/ >50% of the time spent counse ling and/or coordinating care for this patient. Counseling topics and/or how time was spent coordinating patient's care is outlined in the impression and plan above. Subjective Date of service: 03/10/19 Principal diagnosis: Ac hypoxemic Resp failure; Severe Anemia; AE-COPD; G.I. Bleed; Septic Shock Interval history: INTERVAL HISTORY: On 02/20/19 she became acutely short of breath and hypotensive, she again had a drop in hemoglobin. CT angiogram revealed ruptured 5 cm infrarenal AAA. She was seen by vascular surgery, and was transferred to [place]. She received AAA repair at [place] on 02/21/19, has a maintained on heparin drip then transferred back to [facility]. While she was at [place] she had ultrasound of lower extremity which showed non-occlusive subacute to chronic DVT of bilateral lower extremities. She was found to have melena on 02/23, underwent flexible sigmoidoscopy and EGD followed by exploratory laparoscopy and completion of total colectomy, abdominal washout and end ileostomy on 02/24/19. Patient has been sent back to [facility] and re-admitted 03/06/19. Patient is seen today for: Acute hypoxemic Resp failure; Symptomatic anemia; AE- COPD; G.I. Bleed; Acute congestive heart failure exacerbation; Hypotension; SIRS; ruptured AAA s/p repair; Metabolic Acidosis Seen and examined at bedside; 24-hour events reviewed; nursing and respiratory care staff consulted; no adverse overnight events reported to me; resting peacefully in bed; remains on continuous BIPAP (Tolerated only about 1 hour on HFNC today); tube feeds not started yesterday; in room Objective Vital Signs - 12hr 03/10/19 03/10/19 03/10/19 05:50 06:00 06:10 Temperature Pulse Rate 108 H 111 H 108 H Pulse Rate [ Anterior Bilateral Throughout] Pulse Rate [ From Monitor] Respiratory 27 H 27 H 26 H Rate Respiratory Rate [Anterior Bilateral Throughout] Blood Pressure 125/68 127/63 127/63 O2 Sat by Pulse 99 98 98 Oximetry 03/10/19 03/10/19 03/10/19 06:20 06:30 06:40 Temperature Pulse Rate 108 H 109 H 108 H Pulse Rate [ Anterior Bilateral Throughout] Pulse Rate [ From Monitor] Respiratory 25 H 25 H 26 H Rate Respiratory Rate [Anterior Bilateral Throughout] Blood Pressure 127/63 127/63 127/63 O2 Sat by Pulse 97 99 99 Oximetry 03/10/19 03/10/19 03/10/19 06:50 07:00 07:10 Temperature Pulse Rate 110 H 110 H 110 H Pulse Rate [ Anterior Bilateral Throughout] Pulse Rate [ From Monitor] Respiratory 27 H 26 H 27 H Rate Respiratory Rate [Anterior Bilateral Throughout] Blood Pressure 127/63 128/68 128/68 O2 Sat by Pulse 99 100 98 Oximetry 03/10/19 03/10/19 03/10/19 07:20 07:30 07:40 Temperature Pulse Rate 111 H 111 H 112 H Pulse Rate [ Anterior Bilateral Throughout] Pulse Rate [ From Monitor] Respiratory 26 H 28 H 29 H Rate Respiratory Rate [Anterior Bilateral Throughout] Blood Pressure 127/63 127/63 127/63 O2 Sat by Pulse 100 100 99 Oximetry 03/10/19 03/10/19 03/10/19 07:43 07:44 07:50 Temperature Pulse Rate 110 H 110 H Pulse Rate [ 111 H Anterior Bilateral Throughout] Pulse Rate [ From Monitor] Respiratory 27 H 28 H Rate Respiratory 28 H Rate [Anterior Bilateral Throughout] Blood Pressure 128/68 127/63 O2 Sat by Pulse 99 98 Oximetry 03/10/19 03/10/19 03/10/19 07:54 07:59 08:00 Temperature 97.7 F Pulse Rate 111 H Pulse Rate [ 112 H Anterior Bilateral Throughout] Pulse Rate [ 110 H From Monitor] Respiratory 28 H Rate Respiratory 28 H Rate [Anterior Bilateral Throughout] Blood Pressure 131/65 O2 Sat by Pulse 95 Oximetry 03/10/19 03/10/19 03/10/19 08:10 08:20 08:30 Temperature Pulse Rate 112 H 111 H 111 H Pulse Rate [ Anterior Bilateral Throughout] Pulse Rate [ From Monitor] Respiratory 29 H 29 H 29 H Rate Respiratory Rate [Anterior Bilateral Throughout] Blood Pressure 131/65 131/65 131/65 O2 Sat by Pulse 92 94 94 Oximetry 03/10/19 03/10/19 03/10/19 08:40 08:50 09:00 Temperature Pulse Rate 111 H 111 H 111 H Pulse Rate [ Anterior Bilateral Throughout] Pulse Rate [ From Monitor] Respiratory 35 H 32 H 34 H Rate Respiratory Rate [Anterior Bilateral Throughout] Blood Pressure 131/65 131/65 124/60 O2 Sat by Pulse 95 92 91 Oximetry 03/10/19 03/10/19 03/10/19 09:10 09:20 09:30 Temperature Pulse Rate 112 H 117 H 120 H Pulse Rate [ Anterior Bilateral Throughout] Pulse Rate [ From Monitor] Respiratory 29 H 34 H 38 H Rate Respiratory Rate [Anterior Bilateral Throughout] Blood Pressure 124/60 124/60 131/65 O2 Sat by Pulse 92 91 87 Oximetry 03/10/19 03/10/19 03/10/19 09:40 09:50 10:00 Temperature Pulse Rate 119 H 121 H 120 H Pulse Rate [ Anterior Bilateral Throughout] Pulse Rate [ From Monitor] Respiratory 32 H 32 H 33 H Rate Respiratory Rate [Anterior Bilateral Throughout] Blood Pressure 131/65 131/65 122/58 O2 Sat by Pulse 94 95 93 Oximetry 03/10/19 03/10/19 03/10/19 10:10 10:20 10:30 Temperature Pulse Rate 118 H 115 H 116 H Pulse Rate [ Anterior Bilateral Throughout] Pulse Rate [ From Monitor] Respiratory 37 H 35 H 32 H Rate Respiratory Rate [Anterior Bilateral Throughout] Blood Pressure 122/58 122/58 124/60 O2 Sat by Pulse 93 93 96 Oximetry 03/10/19 03/10/19 03/10/19 10:40 10:50 11:00 Temperature 97.5 F L Pulse Rate 108 H 107 H 110 H Pulse Rate [ Anterior Bilateral Throughout] Pulse Rate [ From Monitor] Respiratory 26 H 22 28 H Rate Respiratory Rate [Anterior Bilateral Throughout] Blood Pressure 124/60 124/60 119/56 O2 Sat by Pulse 97 97 100 Oximetry 03/10/19 03/10/19 03/10/19 11:10 11:20 11:30 Temperature Pulse Rate 111 H 111 H 110 H Pulse Rate [ Anterior Bilateral Throughout] Pulse Rate [ From Monitor] Respiratory 31 H 25 H 25 H Rate Respiratory Rate [Anterior Bilateral Throughout] Blood Pressure 119/56 119/56 119/56 O2 Sat by Pulse 98 98 99 Oximetry 03/10/19 03/10/19 03/10/19 11:40 11:50 12:00 Temperature Pulse Rate 111 H 112 H 112 H Pulse Rate [ Anterior Bilateral Throughout] Pulse Rate [ 106 H From Monitor] Respiratory 31 H 31 H 29 H Rate Respiratory Rate [Anterior Bilateral Throughout] Blood Pressure 119/56 119/56 119/56 O2 Sat by Pulse 97 97 97 Oximetry 03/10/19 03/10/19 03/10/19 12:10 12:16 12:20 Temperature Pulse Rate 110 H 111 H 110 H Pulse Rate [ Anterior Bilateral Throughout] Pulse Rate [ From Monitor] Respiratory 30 H 25 H 27 H Rate Respiratory Rate [Anterior Bilateral Throughout] Blood Pressure 118/63 118/63 118/63 O2 Sat by Pulse 97 95 95 Oximetry 03/10/19 03/10/19 03/10/19 12:30 12:40 12:50 Temperature Pulse Rate 111 H 110 H 110 H Pulse Rate [ Anterior Bilateral Throughout] Pulse Rate [ From Monitor] Respiratory 30 H 30 H 31 H Rate Respiratory Rate [Anterior Bilateral Throughout] Blood Pressure 118/63 118/63 118/63 O2 Sat by Pulse 96 95 95 Oximetry 03/10/19 03/10/19 03/10/19 13:00 13:10 13:20 Temperature Pulse Rate 103 H 105 H 101 H Pulse Rate [ Anterior Bilateral Throughout] Pulse Rate [ From Monitor] Respiratory 18 25 H 18 Rate Respiratory Rate [Anterior Bilateral Throughout] Blood Pressure 108/58 108/58 108/58 O2 Sat by Pulse 98 98 98 Oximetry 03/10/19 03/10/19 03/10/19 13:30 13:40 13:50 Temperature Pulse Rate 105 H 98 H 98 H Pulse Rate [ Anterior Bilateral Throughout] Pulse Rate [ From Monitor] Respiratory 26 H 22 18 Rate Respiratory Rate [Anterior Bilateral Throughout] Blood Pressure 108/58 108/58 108/58 O2 Sat by Pulse 99 99 99 Oximetry 03/10/19 03/10/19 03/10/19 14:00 14:10 14:20 Temperature Pulse Rate 100 H 103 H 101 H Pulse Rate [ Anterior Bilateral Throughout] Pulse Rate [ From Monitor] Respiratory 24 31 H 24 Rate Respiratory Rate [Anterior Bilateral Throughout] Blood Pressure 100/61 100/61 100/61 O2 Sat by Pulse 99 98 99 Oximetry 03/10/19 03/10/19 03/10/19 14:30 14:40 14:50 Temperature Pulse Rate 104 H 96 H 97 H Pulse Rate [ Anterior Bilateral Throughout] Pulse Rate [ From Monitor] Respiratory 28 H 20 17 Rate Respiratory Rate [Anterior Bilateral Throughout] Blood Pressure 108/58 108/58 108/58 O2 Sat by Pulse 99 99 100 Oximetry 03/10/19 03/10/19 03/10/19 15:00 15:10 15:20 Temperature Pulse Rate 101 H 100 H 100 H Pulse Rate [ Anterior Bilateral Throughout] Pulse Rate [ From Monitor] Respiratory 26 H 26 H 23 Rate Respiratory Rate [Anterior Bilateral Throughout] Blood Pressure 101/57 101/57 101/57 O2 Sat by Pulse 100 100 100 Oximetry 03/10/19 03/10/19 03/10/19 15:30 15:40 15:50 Temperature Pulse Rate 95 H 99 H 100 H Pulse Rate [ Anterior Bilateral Throughout] Pulse Rate [ From Monitor] Respiratory 17 25 H 27 H Rate Respiratory Rate [Anterior Bilateral Throughout] Blood Pressure 101/57 101/57 101/57 O2 Sat by Pulse 100 98 91 Oximetry 03/10/19 03/10/19 03/10/19 16:00 16:10 16:20 Temperature 94.3 F L Pulse Rate 101 H 100 H 97 H Pulse Rate [ Anterior Bilateral Throughout] Pulse Rate [ From Monitor] Respiratory 30 H 26 H 20 Rate Respiratory Rate [Anterior Bilateral Throughout] Blood Pressure 115/58 115/58 115/58 O2 Sat by Pulse 99 98 100 Oximetry 03/10/19 03/10/19 03/10/19 16:30 16:40 16:50 Temperature Pulse Rate 100 H 91 H 97 H Pulse Rate [ Anterior Bilateral Throughout] Pulse Rate [ From Monitor] Respiratory 30 H 18 28 H Rate Respiratory Rate [Anterior Bilateral Throughout] Blood Pressure 115/58 115/58 115/58 O2 Sat by Pulse 99 99 100 Oximetry 03/10/19 03/10/19 03/10/19 17:00 17:10 17:20 Temperature Pulse Rate 96 H 98 H 91 H Pulse Rate [ Anterior Bilateral Throughout] Pulse Rate [ From Monitor] Respiratory 27 H 25 H 18 Rate Respiratory Rate [Anterior Bilateral Throughout] Blood Pressure 102/52 102/52 102/52 O2 Sat by Pulse 100 100 100 Oximetry 03/10/19 17:30 Temperature Pulse Rate 93 H Pulse Rate [ Anterior Bilateral Throughout] Pulse Rate [ From Monitor] Respiratory 27 H Rate Respiratory Rate [Anterior Bilateral Throughout] Blood Pressure 102/52 O2 Sat by Pulse 100 Oximetry Constitutional: appears uncomfortable, other (petite elderly looking CF, normocephalic and atraumatic with increased resp effort on continuous BIPAP at rest) Eyes: non-icteric ENT: oropharynx dry, other (BIPAP FFM) Neck: supple, no lymphadenopathy, no JVD Effort: mildly labored Ascultation: Bilateral: diminished breath sounds, rhonchi Percussion: Bilateral: not dull Cardiovascular: regular rate and rhythm, murmur noted (systolic) Gastrointestinal: normoactive bowel sounds, soft, non-tender, non-distended Integumentary: other (poor turgor) Extremities: no cyanosis, no edema, pink and warm, pulses normal, no ischemia or petechiae Neurologic: non-focal exam (grossly), pupils equal and round, CN II-XII normal, other (lethargic) CBC and BMP: 03/14/19 04:37 03/13/19 05:17 ABG, PT/INR, D-dimer: ABG POC ABG pH 7.464 (7.35-7.45) H 03/10/19 09:50 POC ABG pO2 160 (80-105) H 03/10/19 09:50 POC ABG HCO3 13.9 (22-26 mml/L) 03/10/19 09:50 POC ABG Total CO2 14 (23-27mmol/L) 03/10/19 09:50 POC ABG O2 Sat 100 03/10/19 09:50 PT/INR, D-dimer PT 14.6 Sec. (12.2-14.9) 03/06/19 23:52 INR 1.17 (0.87-1.13) H 03/06/19 23:52 Abnormal lab findings: Abnormal Labs 03/06/19 03/06/19 03/07/19 23:52 23:52 05:57 WBC RBC Hgb 9.0 L Hct 27.6 L MCV RDW Seg Neuts % (Manual) Lymphocytes % (Manual) Seg Neutrophils # Man Lymphocytes # (Manual) Basophils # (Manual) INR 1.17 H Heparin Anti-Xa Level POC ABG pH 7.249 L POC ABG pCO2 49.2 H POC ABG pO2 73 L Chloride Carbon Dioxide BUN Creatinine Glucose POC Glucose Alkaline Phosphatase Ammonia C-Reactive Protein Total Protein Albumin Urine WBC (Auto) 03/07/19 03/07/19 03/07/19 07:19 07:56 07:56 WBC 17.1 H RBC 3.13 L Hgb 9.5 L Hct 30.1 L MCV RDW 19.5 H Seg Neuts % (Manual) 91.0 H Lymphocytes % (Manual) 3.0 L Seg Neutrophils # Man 15.6 H Lymphocytes # (Manual) 0.5 L Basophils # (Manual) 0.2 H INR Heparin Anti-Xa Level < 0.10 L POC ABG pH POC ABG pCO2 POC ABG pO2 Chloride 110.7 H Carbon Dioxide 21 L BUN 21 H Creatinine 0.2 L Glucose 63 L POC Glucose Alkaline Phosphatase 253 H Ammonia C-Reactive Protein Total Protein 5.4 L Albumin 2.0 L Urine WBC (Auto) 03/07/19 03/07/19 03/07/19 14:13 15:25 18:35 WBC RBC Hgb Hct MCV RDW Seg Neuts % (Manual) Lymphocytes % (Manual) Seg Neutrophils # Man Lymphocytes # (Manual) Basophils # (Manual) INR Heparin Anti-Xa Level POC ABG pH 7.317 L POC ABG pCO2 34.3 L POC ABG pO2 50 L Chloride Carbon Dioxide BUN Creatinine Glucose POC Glucose Alkaline Phosphatase Ammonia C-Reactive Protein 27.00 H Total Protein Albumin Urine WBC (Auto) 123.0 H 03/07/19 03/08/19 03/08/19 21:24 00:23 02:25 WBC 20.2 H RBC 2.85 L Hgb 8.7 L Hct 26.9 L MCV RDW 18.2 H Seg Neuts % (Manual) Lymphocytes % (Manual) Seg Neutrophils # Man Lymphocytes # (Manual) Basophils # (Manual) INR Heparin Anti-Xa Level 0.12 L POC ABG pH 7.319 L POC ABG pCO2 POC ABG pO2 244 H Chloride Carbon Dioxide BUN Creatinine Glucose POC Glucose Alkaline Phosphatase Ammonia C-Reactive Protein Total Protein Albumin Urine WBC (Auto) 03/08/19 03/08/19 03/08/19 02:25 12:02 12:02 WBC RBC Hgb Hct MCV RDW Seg Neuts % (Manual) Lymphocytes % (Manual) Seg Neutrophils # Man Lymphocytes # (Manual) Basophils # (Manual) INR Heparin Anti-Xa Level 0.21 L POC ABG pH POC ABG pCO2 POC ABG pO2 Chloride 111.9 H Carbon Dioxide 17 L BUN 33 H Creatinine 0.3 L Glucose 63 L POC Glucose Alkaline Phosphatase Ammonia 21.0 L C-Reactive Protein Total Protein Albumin Urine WBC (Auto) 03/08/19 03/09/19 03/09/19 18:50 03:43 03:43 WBC 20.5 H RBC 2.44 L Hgb 7.5 L Hct 22.5 L MCV RDW 18.2 H Seg Neuts % (Manual) Lymphocytes % (Manual) Seg Neutrophils # Man Lymphocytes # (Manual) Basophils # (Manual) INR Heparin Anti-Xa Level 0.13 L POC ABG pH POC ABG pCO2 POC ABG pO2 Chloride 112.0 H Carbon Dioxide 15 L BUN 37 H Creatinine 0.4 L Glucose 58 L POC Glucose Alkaline Phosphatase Ammonia C-Reactive Protein Total Protein Albumin Urine WBC (Auto) 03/09/19 03/10/19 03/10/19 03:43 09:41 09:41 WBC 18.2 H RBC 2.55 L Hgb 7.8 L Hct 25.0 L MCV 98 H RDW 19.1 H Seg Neuts % (Manual) Lymphocytes % (Manual) Seg Neutrophils # Man Lymphocytes # (Manual) Basophils # (Manual) INR Heparin Anti-Xa Level 0.15 L POC ABG pH POC ABG pCO2 POC ABG pO2 Chloride 116.0 H Carbon Dioxide 12 L BUN 35 H Creatinine 0.3 L Glucose 42 L POC Glucose Alkaline Phosphatase Ammonia C-Reactive Protein Total Protein Albumin Urine WBC (Auto) 03/10/19 03/10/19 03/10/19 09:41 09:50 16:58 WBC RBC Hgb Hct MCV RDW Seg Neuts % (Manual) Lymphocytes % (Manual) Seg Neutrophils # Man Lymphocytes # (Manual) Basophils # (Manual) INR Heparin Anti-Xa Level 0.12 L POC ABG pH 7.464 H POC ABG pCO2 POC ABG pO2 160 H Chloride Carbon Dioxide BUN Creatinine Glucose POC Glucose 58 L Alkaline Phosphatase Ammonia C-Reactive Protein Total Protein Albumin Urine WBC (Auto) 03/10/19 17:33 WBC RBC Hgb Hct MCV RDW Seg Neuts % (Manual) Lymphocytes % (Manual) Seg Neutrophils # Man Lymphocytes # (Manual) Basophils # (Manual) INR Heparin Anti-Xa Level POC ABG pH POC ABG pCO2 POC ABG pO2 Chloride Carbon Dioxide BUN Creatinine Glucose POC Glucose 214 H Alkaline Phosphatase Ammonia C-Reactive Protein Total Protein Albumin Urine WBC (Auto) Chest x-ray: image reviewed
[2019-03-10] MEDS: SODIUM CHLORIDE FLUSH SYRINGE 10 ML IV SCH (22:15)
[2019-03-11] MEDS: HEPARIN/ 0.45% NACL-25,000 UNIT/500 ML 25,000 UNIT/500 ML BAG IV SCH (03:01)
[2019-03-11] MEDS: VANCOMYCIN 500 MG in NACL 0.9% 100 ML IV SCH ×2 (05:00→17:05)
[2019-03-11] MEDS: MAXIPIME/NS 2 GM/100 ML 2 GM/100 ML BAG IV SCH ×2 (06:32→18:48)
[2019-03-11] MEDS: BROVANA NEBU IH SCH ×2 (09:10→20:34)
[2019-03-11] MEDS: PULMICORT IH SCH ×2 (09:10→20:34)
--- NOTE | 2019-03-11 09:45 | Progress Note ---
Assessment and Plan Cultures: Blood cultures 03/06/2019 no growth MRSA screening positive Urine culture Zakiya 10-100K Assessment: 68 y/o female with history of CHF, COPD and a recent prolonged hospitalization on 02/03/2019-02/20/2019 due to altered mental status, respiratory distress and bowel obstruction with volvulus she underwent an exploratory laparotomy and right hemicolectomy on 02/11/2019, developed persistent leukocytosis with elevated lactate likely due to bilateral pneumonia HCAP with acute respiratory failure treated with cefepime and vancomycin for 5 days. Unfortunately, on she became acutely short of breath and hypotensive and dropped her hemoglobin. CT angiogram revealed ruptured 5 cm infrarenal AAA. She was transferred to [place]. She received AAA repair at [place] on 02/21/19, has a maintained on heparin drip. She was also to have a nonocclusive subacute to manager analysis yovana DVT of bilateral lower extremities. She was found to have melena on 02/23, underwent flexible sigmoidoscopy and EGD followed by exploratory laparoscopy and completion of total colectomy, abdominal washout and end ileostomy on 02/24. 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 She was transferred back to [facility]. ID consulted for new fever 102.2. 1) Severe Sepsis: no fever but some episodes of hypothermia, leukocytosis down to 18K. Etiology most likely HAP +/- UTI. 2) HAP: prolonged complicated hospital stay in [facility] and [place]. S/p recent total colectomy, abdominal washout and end ileostomy on 02/24. 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 CXR bilateral infiltrates. 3) CAUTI ? Candiduria 4) Volvulus / recent GI bleed 5) Severe malnutrition Recommendations: - get [place] micro records - pending - continue cefepime and vancomcyin with PK consult D5 of 7 - add fluconazole 200 mg IV qday - continue contact isolation Very poor prognosis, consider palliative care. Dr Restrepo covering this weekend Will follow. Judy Desai MD Infectious Diseases Obstetrical Nurse [facility] M [phone] O [phone] Subjective Date of service: 03/11/19 Principal diagnosis: Ac hypoxemic Resp failure; Severe Anemia; AE-COPD; G.I. Bleed; Septic Shock Interval history: Somnolent today, debilitated, no fever, remains on HFO2. ROS unable to obtain Objective - Exam Narrative Exam: General appearance: alert in mild resp distress on HFO2 cachectic Eyes: anicteric sclerae, moist conjunctivae; no lid-lag; PERRLA HENT: Atraumatic; oropharynx with BIPAP Neck: Trachea midline; supple, no thyromegaly or lymphadenopathy Lungs: gab coarse breath sounds CV: RRR no murmur Abdomen: Soft, midline surg wound with val, distended iliostomy and DANIELA drain Extremities:cachexia Skin: Normal temperature, turgor and texture; no rash, ulcers or subcutaneous nodules Psych: somnolent. Neuro: somnolent castillo - Constitutional Vitals: Vital Signs Temp Pulse Resp BP Pulse Ox 98.4 F 86 18 104/48 100 03/11/19 03:15 03/11/19 09:30 03/11/19 09:30 03/11/19 08:21 03/11/19 08:21 Temperature -Last 24 Hours Temperature 98.4 F Temperature 97.2 F Temperature 97.8 F Temperature 94.3 F Temperature 97.5 F - Labs CBC & Chem 7: 03/10/19 09:41 03/10/19 09:41 Labs: Abnormal lab results 03/10/19 03/10/19 03/10/19 Range/Units 09:41 09:41 09:41 WBC 18.2 H (4.5-11.0) K/mm3 RBC 2.55 L (3.65-5.03) M/mm3 Hgb 7.8 L (10.1-14.3) gm/dl Hct 25.0 L (30.3-42.9) % MCV 98 H (79-97) fl RDW 19.1 H (13.2-15.2) % Heparin Anti-Xa Level 0.12 L (0.3-0.7) U.I./ml POC ABG pH (7.35-7.45) POC ABG pO2 (80-105) Chloride 116.0 H (98-107) mmol/L Carbon Dioxide 12 L (22-30) mmol/L BUN 35 H (7-17) mg/dL Creatinine 0.3 L (0.7-1.2) mg/dL Glucose 42 L (65-100) mg/dL POC Glucose (70-105) 03/10/19 03/10/19 03/10/19 Range/Units 09:50 16:58 17:33 WBC (4.5-11.0) K/mm3 RBC (3.65-5.03) M/mm3 Hgb (10.1-14.3) gm/dl Hct (30.3-42.9) % MCV (79-97) fl RDW (13.2-15.2) % Heparin Anti-Xa Level (0.3-0.7) U.I./ml POC ABG pH 7.464 H (7.35-7.45) POC ABG pO2 160 H (80-105) Chloride (98-107) mmol/L Carbon Dioxide (22-30) mmol/L BUN (7-17) mg/dL Creatinine (0.7-1.2) mg/dL Glucose (65-100) mg/dL POC Glucose 58 L 214 H (70-105)
[2019-03-11] MEDS: PROTONIX IV SCH ×2 (10:17→21:14)
[2019-03-11] MEDS: SODIUM CHLORIDE FLUSH SYRINGE 10 ML IV SCH ×3 (10:18→21:14)
[2019-03-11] MEDS: DIFLUCAN 200 MG/100 ML BAG IV SCH (10:40)
--- NOTE | 2019-03-11 13:19 | Progress Note ---
Assessment and Plan Patient weak. Patient resting on BiPAP 15/7, rate 23, F5O2 40%. O2 Sat 90%. Patient undergone repaid of abdominal aneurysm and also subsequently undergone colectomy and illiactomy. Patient afebril and patient has leukocytosis. Patient is on Cefepime and Vencomycine. - Patient Problems (1) Pulmonary embolus, left Current Visit: Yes Status: Acute Plan to address problem: Patient is on IV Heparin. (2) Status post AAA (abdominal aortic aneurysm) repair Current Visit: Yes Status: Acute Plan to address problem: Patient undergone abdominal aortic aneurysm at the [facility]. (3) Status post total colectomy Current Visit: Yes Status: Acute Plan to address problem: Patient developed ischemia post abdominal aortic aneurysm. Patient undergone total colectomy and illiactomy. (4) DVT (deep venous thrombosis) Current Visit: Yes Status: Suspected Plan to address problem: Patient is on IV Heparin. (5) Acute respiratory failure Current Visit: No Status: Acute Plan to address problem: Patient is on BiPAP 15/7, rate 23, F5O2 20%. O2 Sat 98%. Continue Brovana and Budesinide earosol treatment q12h. Patient is on IV Heparin. Continue Protonex. (6) COPD exacerbation Current Visit: No Status: Acute Plan to address problem: Patient is on BiPAP 15/7, rate 23, F5O2 20%. O2 Sat 98%. Continue Brovana and Budesinide earosol treatment q12h. Patient is on IV Heparin. Continue Protonex. (7) Pneumonia Current Visit: No Status: Acute Plan to address problem: Patient is on Cefepime and Vancomycin. Subjective Date of service: 03/11/19 Principal diagnosis: Ac hypoxemic Resp failure; Severe Anemia; AE-COPD; G.I. Bleed; Septic Shock Interval history: Patient weak. Patient resting on BiPAP 15/7, rate 23, F5O2 40%. O2 Sat 90%. Patient undergone repaid of abdominal aneurysm and also subsequently undergone colectomy and illiactomy. Patient afebril and patient has leukocytosis. Patient is on Cefepime and Vencomycine. Objective Vital Signs - 12hr 03/11/19 03/11/19 03/11/19 01:20 01:31 01:40 Temperature Pulse Rate 83 78 80 Pulse Rate [ Anterior Bilateral Throughout] Respiratory 22 18 21 Rate Respiratory Rate [Anterior Bilateral Throughout] Blood Pressure 102/55 100/51 102/55 O2 Sat by Pulse 100 99 100 Oximetry 03/11/19 03/11/19 03/11/19 01:51 02:00 02:11 Temperature Pulse Rate 79 81 78 Pulse Rate [ Anterior Bilateral Throughout] Respiratory 21 24 22 Rate Respiratory Rate [Anterior Bilateral Throughout] Blood Pressure 102/55 108/65 102/55 O2 Sat by Pulse 100 100 97 Oximetry 03/11/19 03/11/19 03/11/19 02:21 02:31 02:41 Temperature Pulse Rate 80 81 79 Pulse Rate [ Anterior Bilateral Throughout] Respiratory 26 H 24 16 Rate Respiratory Rate [Anterior Bilateral Throughout] Blood Pressure 102/55 102/55 108/65 O2 Sat by Pulse 100 100 100 Oximetry 03/11/19 03/11/19 03/11/19 02:51 03:00 03:11 Temperature Pulse Rate 79 79 78 Pulse Rate [ Anterior Bilateral Throughout] Respiratory 16 21 19 Rate Respiratory Rate [Anterior Bilateral Throughout] Blood Pressure 108/65 110/60 108/65 O2 Sat by Pulse 100 100 100 Oximetry 03/11/19 03/11/19 03/11/19 03:15 03:16 03:21 Temperature 98.4 F Pulse Rate 77 75 Pulse Rate [ Anterior Bilateral Throughout] Respiratory 19 16 Rate Respiratory Rate [Anterior Bilateral Throughout] Blood Pressure 108/65 O2 Sat by Pulse 100 100 Oximetry 03/11/19 03/11/19 03/11/19 03:31 03:41 03:51 Temperature Pulse Rate 76 75 78 Pulse Rate [ Anterior Bilateral Throughout] Respiratory 17 18 21 Rate Respiratory Rate [Anterior Bilateral Throughout] Blood Pressure 108/65 110/60 110/60 O2 Sat by Pulse 100 100 100 Oximetry 03/11/19 03/11/19 03/11/19 04:00 04:11 04:21 Temperature Pulse Rate 81 85 82 Pulse Rate [ Anterior Bilateral Throughout] Respiratory 22 23 Rate Respiratory Rate [Anterior Bilateral Throughout] Blood Pressure 118/63 110/60 110/60 O2 Sat by Pulse 100 100 100 Oximetry 03/11/19 03/11/19 03/11/19 04:31 04:41 04:51 Temperature Pulse Rate 84 83 79 Pulse Rate [ Anterior Bilateral Throughout] Respiratory 26 H 25 H 22 Rate Respiratory Rate [Anterior Bilateral Throughout] Blood Pressure 110/60 110/60 110/60 O2 Sat by Pulse 95 89 98 Oximetry 03/11/19 03/11/19 03/11/19 05:01 05:11 05:21 Temperature Pulse Rate 81 80 78 Pulse Rate [ Anterior Bilateral Throughout] Respiratory 21 18 17 Rate Respiratory Rate [Anterior Bilateral Throughout] Blood Pressure 118/70 118/70 118/63 O2 Sat by Pulse 100 100 100 Oximetry 03/11/19 03/11/19 03/11/19 05:31 05:41 05:51 Temperature Pulse Rate 81 85 81 Pulse Rate [ Anterior Bilateral Throughout] Respiratory 28 H 19 18 Rate Respiratory Rate [Anterior Bilateral Throughout] Blood Pressure 118/63 118/63 118/70 O2 Sat by Pulse 100 100 100 Oximetry 03/11/19 03/11/19 03/11/19 06:00 06:11 06:21 Temperature Pulse Rate 77 76 74 Pulse Rate [ Anterior Bilateral Throughout] Respiratory 26 H 19 21 Rate Respiratory Rate [Anterior Bilateral Throughout] Blood Pressure 106/59 106/59 106/59 O2 Sat by Pulse 100 100 100 Oximetry 03/11/19 03/11/19 03/11/19 06:31 06:41 06:51 Temperature Pulse Rate 77 82 80 Pulse Rate [ Anterior Bilateral Throughout] Respiratory 19 27 H 25 H Rate Respiratory Rate [Anterior Bilateral Throughout] Blood Pressure 106/59 106/59 106/59 O2 Sat by Pulse 100 100 98 Oximetry 03/11/19 03/11/19 03/11/19 07:00 07:01 07:11 Temperature Pulse Rate 77 77 Pulse Rate [ Anterior Bilateral Throughout] Respiratory 19 22 Rate Respiratory Rate [Anterior Bilateral Throughout] Blood Pressure 114/51 114/51 O2 Sat by Pulse 99 100 100 Oximetry 03/11/19 03/11/19 03/11/19 07:21 07:31 07:41 Temperature Pulse Rate 82 82 81 Pulse Rate [ Anterior Bilateral Throughout] Respiratory 27 H 21 22 Rate Respiratory Rate [Anterior Bilateral Throughout] Blood Pressure 114/51 114/51 114/51 O2 Sat by Pulse 100 100 100 Oximetry 03/11/19 03/11/19 03/11/19 07:51 08:00 08:11 Temperature Pulse Rate 84 84 85 Pulse Rate [ Anterior Bilateral Throughout] Respiratory 30 H 28 H 24 Rate Respiratory Rate [Anterior Bilateral Throughout] Blood Pressure 114/51 114/51 104/48 O2 Sat by Pulse 100 100 100 Oximetry 03/11/19 03/11/19 03/11/19 08:21 09:20 09:25 Temperature Pulse Rate 82 87 Pulse Rate [ 85 Anterior Bilateral Throughout] Respiratory 29 H 23 Rate Respiratory 26 H Rate [Anterior Bilateral Throughout] Blood Pressure 104/48 97/59 O2 Sat by Pulse 100 98 Oximetry 03/11/19 03/11/19 09:30 11:51 Temperature Pulse Rate 83 Pulse Rate [ 86 Anterior Bilateral Throughout] Respiratory 18 Rate Respiratory 18 Rate [Anterior Bilateral Throughout] Blood Pressure 96/50 O2 Sat by Pulse 100 Oximetry Constitutional: no acute distress, asleep, other (petite elderly looking CF, normocephalic and atraumatic with increased resp effort on continuous BIPAP at rest) Eyes: non-icteric ENT: oropharynx dry, other (BIPAP FFM) Neck: supple, no lymphadenopathy, no JVD Effort: mildly labored Ascultation: Bilateral: diminished breath sounds, rhonchi Percussion: Bilateral: not dull Cardiovascular: regular rate and rhythm, murmur noted (systolic) Gastrointestinal: normoactive bowel sounds, soft, non-tender, non-distended Integumentary: other (poor turgor) Extremities: no cyanosis, no edema, pink and warm, pulses normal, no ischemia or petechiae Neurologic: non-focal exam (grossly), pupils equal and round, CN II-XII normal, other (lethargic) CBC and BMP: 03/10/19 09:41 03/10/19 09:41 ABG, PT/INR, D-dimer: ABG POC ABG pH 7.464 (7.35-7.45) H 03/10/19 09:50 POC ABG pO2 160 (80-105) H 03/10/19 09:50 POC ABG HCO3 13.9 (22-26 mml/L) 03/10/19 09:50 POC ABG Total CO2 14 (23-27mmol/L) 03/10/19 09:50 POC ABG O2 Sat 100 03/10/19 09:50 PT/INR, D-dimer PT 14.6 Sec. (12.2-14.9) 03/06/19 23:52 INR 1.17 (0.87-1.13) H 06/19/19 23:52 Abnormal lab findings: Abnormal Labs 03/06/19 03/06/19 03/07/19 23:52 23:52 05:57 WBC RBC Hgb 9.0 L Hct 27.6 L MCV RDW Seg Neuts % (Manual) Lymphocytes % (Manual) Seg Neutrophils # Man Lymphocytes # (Manual) Basophils # (Manual) INR 1.17 H Heparin Anti-Xa Level POC ABG pH 7.249 L POC ABG pCO2 49.2 H POC ABG pO2 73 L Chloride Carbon Dioxide BUN Creatinine Glucose POC Glucose Alkaline Phosphatase Ammonia C-Reactive Protein Total Protein Albumin Urine WBC (Auto) 03/07/19 03/07/19 03/07/19 07:19 07:56 07:56 WBC 17.1 H RBC 3.13 L Hgb 9.5 L Hct 30.1 L MCV RDW 19.5 H Seg Neuts % (Manual) 91.0 H Lymphocytes % (Manual) 3.0 L Seg Neutrophils # Man 15.6 H Lymphocytes # (Manual) 0.5 L Basophils # (Manual) 0.2 H INR Heparin Anti-Xa Level < 0.10 L POC ABG pH POC ABG pCO2 POC ABG pO2 Chloride 110.7 H Carbon Dioxide 21 L BUN 21 H Creatinine 0.2 L Glucose 63 L POC Glucose Alkaline Phosphatase 253 H Ammonia C-Reactive Protein Total Protein 5.4 L Albumin 2.0 L Urine WBC (Auto) 03/07/19 03/07/19 03/07/19 14:13 15:25 18:35 WBC RBC Hgb Hct MCV RDW Seg Neuts % (Manual) Lymphocytes % (Manual) Seg Neutrophils # Man Lymphocytes # (Manual) Basophils # (Manual) INR Heparin Anti-Xa Level POC ABG pH 7.317 L POC ABG pCO2 34.3 L POC ABG pO2 50 L Chloride Carbon Dioxide BUN Creatinine Glucose POC Glucose Alkaline Phosphatase Ammonia C-Reactive Protein 27.00 H Total Protein Albumin Urine WBC (Auto) 123.0 H 03/07/19 03/08/19 03/08/19 21:24 00:23 02:25 WBC 20.2 H RBC 2.85 L Hgb 8.7 L Hct 26.9 L MCV RDW 18.2 H Seg Neuts % (Manual) Lymphocytes % (Manual) Seg Neutrophils # Man Lymphocytes # (Manual) Basophils # (Manual) INR Heparin Anti-Xa Level 0.12 L POC ABG pH 7.319 L POC ABG pCO2 POC ABG pO2 244 H Chloride Carbon Dioxide BUN Creatinine Glucose POC Glucose Alkaline Phosphatase Ammonia C-Reactive Protein Total Protein Albumin Urine WBC (Auto) 03/08/19 03/08/19 03/08/19 02:25 12:02 12:02 WBC RBC Hgb Hct MCV RDW Seg Neuts % (Manual) Lymphocytes % (Manual) Seg Neutrophils # Man Lymphocytes # (Manual) Basophils # (Manual) INR Heparin Anti-Xa Level 0.21 L POC ABG pH POC ABG pCO2 POC ABG pO2 Chloride 111.9 H Carbon Dioxide 17 L BUN 33 H Creatinine 0.3 L Glucose 63 L POC Glucose Alkaline Phosphatase Ammonia 21.0 L C-Reactive Protein Total Protein Albumin Urine WBC (Auto) 03/08/19 03/09/19 03/09/19 18:50 03:43 03:43 WBC 20.5 H RBC 2.44 L Hgb 7.5 L Hct 22.5 L MCV RDW 18.2 H Seg Neuts % (Manual) Lymphocytes % (Manual) Seg Neutrophils # Man Lymphocytes # (Manual) Basophils # (Manual) INR Heparin Anti-Xa Level 0.13 L POC ABG pH POC ABG pCO2 POC ABG pO2 Chloride 112.0 H Carbon Dioxide 15 L BUN 37 H Creatinine 0.4 L Glucose 58 L POC Glucose Alkaline Phosphatase Ammonia C-Reactive Protein Total Protein Albumin Urine WBC (Auto) 03/09/19 03/10/19 03/10/19 03:43 09:41 09:41 WBC 18.2 H RBC 2.55 L Hgb 7.8 L Hct 25.0 L MCV 98 H RDW 19.1 H Seg Neuts % (Manual) Lymphocytes % (Manual) Seg Neutrophils # Man Lymphocytes # (Manual) Basophils # (Manual) INR Heparin Anti-Xa Level 0.15 L POC ABG pH POC ABG pCO2 POC ABG pO2 Chloride 116.0 H Carbon Dioxide 12 L BUN 35 H Creatinine 0.3 L Glucose 42 L POC Glucose Alkaline Phosphatase Ammonia C-Reactive Protein Total Protein Albumin Urine WBC (Auto) 03/10/19 03/10/19 03/10/19 09:41 09:50 16:58 WBC RBC Hgb Hct MCV RDW Seg Neuts % (Manual) Lymphocytes % (Manual) Seg Neutrophils # Man Lymphocytes # (Manual) Basophils # (Manual) INR Heparin Anti-Xa Level 0.12 L POC ABG pH 7.464 H POC ABG pCO2 POC ABG pO2 160 H Chloride Carbon Dioxide BUN Creatinine Glucose POC Glucose 58 L Alkaline Phosphatase Ammonia C-Reactive Protein Total Protein Albumin Urine WBC (Auto) 03/10/19 03/11/19 17:33 11:43 WBC RBC Hgb Hct MCV RDW Seg Neuts % (Manual) Lymphocytes % (Manual) Seg Neutrophils # Man Lymphocytes # (Manual) Basophils # (Manual) INR Heparin Anti-Xa Level POC ABG pH POC ABG pCO2 POC ABG pO2 Chloride Carbon Dioxide BUN Creatinine Glucose POC Glucose 214 H 123 H Alkaline Phosphatase Ammonia C-Reactive Protein Total Protein Albumin Urine WBC (Auto) Chest x-ray: report reviewed (Bilateral Patchy infiltrates.), image reviewed
--- NOTE | 2019-03-11 14:37 | Progress Note ---
Assessment and Plan 68 yo F with 1. 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 ARF - on BIPAP 3. ruptured AAA s/p repair at [facility] 4. s/p total colectomy and ileostomy at [facility] 5. sepsis 2/2 PNA, UTI 6. malnutrition 7. hx CHF, EF 20-25% Plan: 1. NPO, TF on hold due to high aspiration risk especially while on BIPAP. 2. recommend PICC line if ok with ID, and initiating TPN 3. GI ppx 4. DVT ppx 5. prn pain control 6. ostomy care 7. sepsis - mgmt per ID and Pulm 8. obtain operative records from [facility] - patient has drain and new val. Would be helpful to know when last surgery was done to determine when it will be safe to remove val and guide management of DANIELA drain 9. Family wants aggressive care per notes Thank you, please call with questions. Subjective Date of service: 03/11/19 Narrative: Pt seen and examined. On BIPAP. Objective Vital Signs - 12hr 03/11/19 03/11/19 03/11/19 02:41 02:51 03:00 Temperature Pulse Rate 79 79 79 Pulse Rate [ Anterior Bilateral Throughout] Respiratory 16 16 21 Rate Respiratory Rate [Anterior Bilateral Throughout] Blood Pressure 108/65 108/65 110/60 O2 Sat by Pulse 100 100 100 Oximetry 03/11/19 03/11/19 03/11/19 03:11 03:15 03:16 Temperature 98.4 F Pulse Rate 78 77 Pulse Rate [ Anterior Bilateral Throughout] Respiratory 19 19 Rate Respiratory Rate [Anterior Bilateral Throughout] Blood Pressure 108/65 O2 Sat by Pulse 100 100 Oximetry 03/11/19 03/11/19 03/11/19 03:21 03:31 03:41 Temperature Pulse Rate 75 76 75 Pulse Rate [ Anterior Bilateral Throughout] Respiratory 16 17 18 Rate Respiratory Rate [Anterior Bilateral Throughout] Blood Pressure 108/65 108/65 110/60 O2 Sat by Pulse 100 100 100 Oximetry 03/11/19 03/11/19 03/11/19 03:51 04:00 04:11 Temperature Pulse Rate 78 81 85 Pulse Rate [ Anterior Bilateral Throughout] Respiratory 21 22 Rate Respiratory Rate [Anterior Bilateral Throughout] Blood Pressure 110/60 118/63 110/60 O2 Sat by Pulse 100 100 100 Oximetry 03/11/19 03/11/19 03/11/19 04:21 04:31 04:41 Temperature Pulse Rate 82 84 83 Pulse Rate [ Anterior Bilateral Throughout] Respiratory 23 26 H 25 H Rate Respiratory Rate [Anterior Bilateral Throughout] Blood Pressure 110/60 110/60 110/60 O2 Sat by Pulse 100 95 89 Oximetry 03/11/19 03/11/19 03/11/19 04:51 05:01 05:11 Temperature Pulse Rate 79 81 80 Pulse Rate [ Anterior Bilateral Throughout] Respiratory 22 21 18 Rate Respiratory Rate [Anterior Bilateral Throughout] Blood Pressure 110/60 118/70 118/70 O2 Sat by Pulse 98 100 100 Oximetry 03/11/19 03/11/19 03/11/19 05:21 05:31 05:41 Temperature Pulse Rate 78 81 85 Pulse Rate [ Anterior Bilateral Throughout] Respiratory 17 28 H 19 Rate Respiratory Rate [Anterior Bilateral Throughout] Blood Pressure 118/63 118/63 118/63 O2 Sat by Pulse 100 100 100 Oximetry 03/11/19 03/11/19 03/11/19 05:51 06:00 06:11 Temperature Pulse Rate 81 77 76 Pulse Rate [ Anterior Bilateral Throughout] Respiratory 18 26 H 19 Rate Respiratory Rate [Anterior Bilateral Throughout] Blood Pressure 118/70 106/59 106/59 O2 Sat by Pulse 100 100 100 Oximetry 03/11/19 03/11/19 03/11/19 06:21 06:31 06:41 Temperature Pulse Rate 74 77 82 Pulse Rate [ Anterior Bilateral Throughout] Respiratory 21 19 27 H Rate Respiratory Rate [Anterior Bilateral Throughout] Blood Pressure 106/59 106/59 106/59 O2 Sat by Pulse 100 100 100 Oximetry 03/11/19 03/11/19 03/11/19 06:51 07:00 07:01 Temperature Pulse Rate 80 77 Pulse Rate [ Anterior Bilateral Throughout] Respiratory 25 H 19 Rate Respiratory Rate [Anterior Bilateral Throughout] Blood Pressure 106/59 114/51 O2 Sat by Pulse 98 99 100 Oximetry 03/11/19 03/11/19 03/11/19 07:11 07:21 07:31 Temperature Pulse Rate 77 82 82 Pulse Rate [ Anterior Bilateral Throughout] Respiratory 22 27 H 21 Rate Respiratory Rate [Anterior Bilateral Throughout] Blood Pressure 114/51 114/51 114/51 O2 Sat by Pulse 100 100 100 Oximetry 03/11/19 03/11/19 03/11/19 07:41 07:51 08:00 Temperature 97.9 F Pulse Rate 81 84 84 Pulse Rate [ Anterior Bilateral Throughout] Respiratory 22 30 H 28 H Rate Respiratory Rate [Anterior Bilateral Throughout] Blood Pressure 114/51 114/51 114/51 O2 Sat by Pulse 100 100 100 Oximetry 03/11/19 03/11/19 03/11/19 08:11 08:21 09:20 Temperature Pulse Rate 85 82 Pulse Rate [ 85 Anterior Bilateral Throughout] Respiratory 24 29 H Rate Respiratory 26 H Rate [Anterior Bilateral Throughout] Blood Pressure 104/48 104/48 O2 Sat by Pulse 100 100 Oximetry 03/11/19 03/11/19 03/11/19 09:25 09:30 11:51 Temperature Pulse Rate 87 83 Pulse Rate [ 86 Anterior Bilateral Throughout] Respiratory 23 18 Rate Respiratory 18 Rate [Anterior Bilateral Throughout] Blood Pressure 97/59 96/50 O2 Sat by Pulse 98 100 Oximetry 03/11/19 12:00 Temperature 98.0 F Pulse Rate Pulse Rate [ Anterior Bilateral Throughout] Respiratory Rate Respiratory Rate [Anterior Bilateral Throughout] Blood Pressure O2 Sat by Pulse Oximetry - General physical appearance Narrative Exam: Gen: opens eyes to verbal stimulus. not responding to commands ENT: Dobhoff in place. CV: s1, S2+ resp; on BIPAP Abd: soft, ND, mild TTP near midline incision. R side ostomy pink with liquid stool in bag. incision c/d/i. DANIELA drain on L with serous drainage Ext: no c/c/e - Labs 03/10/19 09:41 03/10/19 09:41
[2019-03-11] MEDS: PERCOCET 5/325 PO PRN (17:09)
--- NOTE | 2019-03-11 18:54 | Progress Note ---
Assessment and Plan Assessment and plan: The high probability of a clinically significant, sudden or life threatening deterioration of the [] system(s) required my full and direct attention, intervention and personal management. The aggregate critical care time was [] minutes. This time is in addition to time spent performing reported procedures but includes the following: [x] Data Review and interpretation [x] Patient assessment and monitoring of vital signs [x] Documentation [x] Medication orders and management Total Time Spent with Patient (Minutes): 33 - Patient Problems (1) Altered mental status Current Visit: No Status: Acute Plan to address problem: She remains encephalopathic. Intubated. Prognosis is extremely poor. The have been some anoxia. (2) CHF exacerbation Current Visit: No Status: Acute Plan to address problem: Patient ejection fraction 20-25%. Currently fairly well compensated. 10 units diuresis beta jennifer as indicated. And as tolerated. (3) DVT (deep venous thrombosis) Current Visit: Yes Status: Suspected Plan to address problem: Patient on will be placed on oral anticoagulants when hemodynamically stable. For bilateral DVT. All medications were no further risk of bleeding. (4) Sepsis Current Visit: No Status: Acute Plan to address problem: Patient sepsis UTI versus aspiration present on admission Ceftin and vancomycin. f/u will blood culture data. (5) Status post AAA (abdominal aortic aneurysm) repair Current Visit: Yes Status: Acute History Interval history: 68 years old with a history of congestive heart failure and COPD status post fall. Found to have symptomatic anemia with a hemoglobin of 1.9. Patient shortly after required acute respiratory failure intubated. Hospital course was complicated by bowel obstruction had exploratory lap and did well until ruptured abdominal aneurysm. Patient received repair of aneurysm on 02/21/2019 and was transferred to services. Patient remains encephalopathic intubated from acute respiratory failure. End acutely ill. Hospitalist Physical - Constitutional Vitals: Temp Pulse Resp BP Pulse Ox 98.0 F 98 H 28 H 127/70 97 03/11/19 12:00 03/11/19 18:11 03/11/19 18:11 03/11/19 18:11 03/11/19 18:11 General appearance: Present: no acute distress - EENT ENT: other (significant encephalopathy.) - Neck Neck: Present: supple, normal ROM - Respiratory Respiratory: bilateral: diminished, rhonchi - Cardiovascular Rhythm: regular - Extremities Extremities: no ischemia, No edema Extremity abnormal: edema Peripheral Pulses: within normal limits - Abdominal General gastrointestinal: soft, distended, hypoactive bowel sounds - Integumentary Integumentary: Present: clear, warm, dry - Neurologic Neurologic: CNII-XII intact, focal deficits Results - Labs CBC & Chem 7: 03/10/19 09:41 03/10/19 09:41 Labs: Laboratory Last Values WBC 18.2 K/mm3 (4.5-11.0) H 03/10/19 09:41 RBC 2.55 M/mm3 (3.65-5.03) L 03/10/19 09:41 Hgb 7.8 gm/dl (10.1-14.3) L 03/10/19 09:41 Hct 25.0 % (30.3-42.9) L 03/10/19 09:41 MCV 98 fl (79-97) H 03/10/19 09:41 MCH 31 pg (28-32) 03/10/19 09:41 MCHC 31 % (30-34) 03/10/19 09:41 RDW 19.1 % (13.2-15.2) H 03/10/19 09:41 Plt Count 333 K/mm3 (140-440) 03/10/19 09:41 Add Manual Diff Complete 03/07/19 07:56 Total Counted 100 03/07/19 07:56 Seg Neuts % (Manual) 91.0 % (40.0-70.0) H 03/07/19 07:56 3.0 % 03/07/19 07:56 3.0 % (13.4-35.0) L 03/07/19 07:56 Reactive Lymphs % (Man) 0 % 03/07/19 07:56 2.0 % (0.0-7.3) 03/07/19 07:56 0 % (0.0-4.3) 03/07/19 07:56 1.0 % (0.0-1.8) 03/07/19 07:56 0 % 03/07/19 07:56 0 % 03/07/19 07:56 0 % 03/07/19 07:56 0 % 03/07/19 07:56 Nucleated RBC % Not Reportable 03/07/19 07:56 Seg Neutrophils # Man 15.6 K/mm3 (1.8-7.7) H 03/07/19 07:56 Band Neutrophils # 0.5 K/mm3 03/07/19 07:56 0.5 K/mm3 (1.2-5.4) L 03/07/19 07:56 Abs React Lymphs (Man) 0.0 K/mm3 03/07/19 07:56 0.3 K/mm3 (0.0-0.8) 03/07/19 07:56 0.0 K/mm3 (0.0-0.4) 03/07/19 07:56 0.2 K/mm3 (0.0-0.1) H 03/07/19 07:56 0.0 K/mm3 03/07/19 07:56 0.0 K/mm3 03/07/19 07:56 0.0 K/mm3 03/07/19 07:56 Blast Cells # 0.0 K/mm3 03/07/19 07:56 WBC Morphology Not Reportable 03/07/19 07:56 Hypersegmented Neuts Not Reportable 03/07/19 07:56 Hyposegmented Neuts Not Reportable 03/07/19 07:56 Hypogranular Neuts Not Reportable 03/07/19 07:56 Not Reportable 03/07/19 07:56 Not Reportable 03/07/19 07:56 Not Reportable 03/07/19 07:56 Not Reportable 03/07/19 07:56 Not Reportable 03/07/19 07:56 Not Reportable 03/07/19 07:56 Consistent w auto 03/07/19 07:56 Not Reportable 03/07/19 07:56 Plt Clumps, EDTA Not Reportable 03/07/19 07:56 Not Reportable 03/07/19 07:56 Not Reportable 03/07/19 07:56 Not Reportable 03/07/19 07:56 Plt Morphology Comment Not Reportable 03/07/19 07:56 RBC Morphology Not Reportable 03/07/19 07:56 Dimorphic RBCs Not Reportable 03/07/19 07:56 Few 03/07/19 07:56 Not Reportable 03/07/19 07:56 Not Reportable 03/07/19 07:56 1+ 03/07/19 07:56 Not Reportable 03/07/19 07:56 Not Reportable 03/07/19 07:56 Not Reportable 03/07/19 07:56 Not Reportable 03/07/19 07:56 Not Reportable 03/07/19 07:56 Not Reportable 03/07/19 07:56 Not Reportable 03/07/19 07:56 Not Reportable 03/07/19 07:56 Not Reportable 03/07/19 07:56 Not Reportable 03/07/19 07:56 Not Reportable 03/07/19 07:56 Not Reportable 03/07/19 07:56 Not Reportable 03/07/19 07:56 Not Reportable 03/07/19 07:56 Not Reportable 03/07/19 07:56 Acanthocytes (Spur) Not Reportable 03/07/19 07:56 Rouleaux Not Reportable 03/07/19 07:56 Not Reportable 03/07/19 07:56 Not Reportable 03/07/19 07:56 Not Reportable 03/07/19 07:56 Not Reportable 03/07/19 07:56 Hem Pathologist Commnt No 03/07/19 07:56 PT 14.6 Sec. (12.2-14.9) 03/06/19 23:52 INR 1.17 (0.87-1.13) H 03/06/19 23:52 APTT 34.8 Sec. (24.2-36.6) 03/06/19 23:52 Heparin Anti-Xa Level 0.44 U.I./ml (0.3-0.7) 03/11/19 11:05 POC ABG pH 7.464 (7.35-7.45) H 03/10/19 09:50 POC ABG pCO2 36.4 (35-45) 03/07/19 21:24 POC ABG pO2 160 (80-105) H 03/10/19 09:50 POC ABG HCO3 13.9 (22-26 mml/L) 03/10/19 09:50 POC ABG Total CO2 14 (23-27mmol/L) 03/10/19 09:50 POC ABG O2 Sat 100 03/10/19 09:50 POC ABG Base Excess -10 ((-2) - (+3)mmol/L) 03/10/19 09:50 80 % 03/10/19 09:50 Sodium 144 mmol/L (137-145) 03/10/19 09:41 Potassium 3.7 mmol/L (3.6-5.0) 03/10/19 09:41 Chloride 116.0 mmol/L (98-107) H 03/10/19 09:41 Carbon Dioxide 12 mmol/L (22-30) L 03/10/19 09:41 20 mmol/L 03/10/19 09:41 BUN 35 mg/dL (7-17) H 03/10/19 09:41 0.3 mg/dL (0.7-1.2) L 03/10/19 09:41 Estimated GFR > 60 ml/min 03/10/19 09:41 117 % 03/10/19 09:41 Glucose 42 mg/dL (65-100) L 03/10/19 09:41 POC Glucose 123 (70-105) H 03/11/19 11:43 Calcium 9.4 mg/dL (8.4-10.2) 03/10/19 09:41 Phosphorus 3.50 mg/dL (2.5-4.5) 03/07/19 08:17 Magnesium 2.20 mg/dL (1.7-2.3) 03/07/19 08:17 0.60 mg/dL (0.1-1.2) 03/07/19 07:56 AST 22 units/L (5-40) 03/07/19 07:56 ALT 22 units/L (7-56) 03/07/19 07:56 253 units/L (35-129) H 03/07/19 07:56 21.0 umol/L (25-60) L 03/08/19 12:02 27.00 mg/dL (0.00-1.30) H 03/07/19 15:25 5.4 g/dL (6.3-8.2) L 03/07/19 07:56 2.0 g/dL (3.9-5) L 03/07/19 07:56 0.6 % 03/07/19 07:56 Marisela (Yellow) 03/07/19 18:35 Cloudy (Clear) 03/07/19 18:35 6.0 (5.0-7.0) 03/07/19 18:35 Ur Specific [place] 1.026 (1.003-1.030) 03/07/19 18:35 100 mg/dl mg/dL (Negative) 03/07/19 18:35 Neg mg/dL (Negative) 03/07/19 18:35 Neg mg/dL (Negative) 03/07/19 18:35 Mod (Negative) 03/07/19 18:35 Neg (Negative) 03/07/19 18:35 Neg (Negative) 03/07/19 18:35 < 2.0 mg/dL (<2.0) 03/07/19 18:35 Ur Leukocyte Esterase Mod (Negative) 03/07/19 18:35 123.0 /HPF (0.0-6.0) H 03/07/19 18:35 > 182.0 /HPF (0.0-6.0) 03/07/19 18:35 U Epithel Cells (Auto) 1.0 /HPF (0-13.0) 03/07/19 18:35 4+ /HPF (Negative) 03/07/19 18:35 Hyaline Casts 10 /LPF 03/07/19 18:35 3+ /HPF 03/07/19 18:35 3+ /HPF 03/07/19 18:35 Vancomycin Trough 14.8 ug/mL (5.0-20.0) 03/09/19 03:43 Blood Type A POSITIVE 03/07/19 07:19 Antibody Screen Negative 03/07/19 07:19 Active Medications - Current Medications Current Medications: Generic Name Dose Route Start Last Admin Trade Name Beq PRN Reason Stop Dose Admin Acetaminophen 650 mg 03/06/19 23:37 03/07/19 07:34 Tylenol PO 650 mg Q4H PRN Administration Pain MILD(1-3)/Fever >100.5/DOMINGUEZ Albuterol 2.5 mg 03/06/19 23:37 Proventil IH Q4HRT PRN Shortness Of Breath Arformoterol Tartrate 15 mcg 03/07/19 08:00 03/11/19 09:10 Brovana Nebu IH 15 mcg Q12HRT JOEL Administration Budesonide 0.5 mg 03/07/19 08:00 03/11/19 09:10 Pulmicort IH 0.5 mg Q12HRT JOEL Administration Dextrose 50 ml 03/07/19 13:57 03/10/19 17:01 D50w (25gm) Syringe IV 50 ml PRN PRN Administration Hypoglycemia Hydrophilic Ointment 1 applic 03/06/19 23:31 Vaseline Lip Therapy TP Q2HR PRN Dry Lips Heparin Sodium/Sodium Chloride 25,000 unit in 500 mls @ 14.28 mls/hr 03/06/19 23:45 03/11/19 12:45 Heparin/ 0.45% Nacl-25,000 Unit/500 Ml IV 1,050 units/hr TITR JOEL 21 mls/hr Titration Protocol 714 UNITS/HR Vancomycin HCl 500 mg/ Sodium 110 mls @ 55 mls/hr 03/07/19 17:00 03/11/19 17:05 Chloride IV 55 mls/hr Q12H JOEL Administration Cefepime HCl 2 gm in 100 mls @ 200 mls/hr 03/08/19 18:00 03/11/19 18:48 Maxipime/Ns 2 Gm/100 Ml IV 200 mls/hr Q12HR@0600,1800 JOEL Administration Protocol Sodium Bicarbonate 150 meq/ 1,150 mls @ 42 mls/hr 03/10/19 17:00 Dextrose IV DIRECT JOEL Fluconazole 200 mg in 100 mls @ 100 mls/hr 03/11/19 11:00 03/11/19 10:40 Diflucan IV 100 mls/hr Q24HR JOEL Administration Protocol Morphine Sulfate 2 mg 03/06/19 23:37 03/10/19 08:50 Morphine IV 2 mg Q4H PRN Administration Pain, Moderate (4-6) Ondansetron HCl 4 mg 03/06/19 23:37 Zofran IV Q8H PRN Nausea And Vomiting Oxycodone/Acetaminophen 1 tab 03/06/19 23:37 03/11/19 17:09 Percocet 5/325 PO 1 tab Q6H PRN Administration Pain, Moderate (4-6) Pantoprazole Sodium 40 mg 03/07/19 10:00 03/11/19 10:17 Protonix IV 40 mg BID JOEL Administration Sodium Chloride 10 ml 03/07/19 10:00 03/11/19 11:00 Sodium Chloride Flush Syringe 10 Ml IV 10 ml BID JOEL Administration Sodium Chloride 10 ml 03/06/19 23:37 Sodium Chloride Flush Syringe 10 Ml IV PRN PRN LINE FLUSH Nutrition/Malnutrition Assess - Dietary Evaluation Nutrition/Malnutrition Findings: Nutrition Notes Start: 03/07/19 15:10 Freq: Status: Active Protocol: Document 03/11/19 17:12 RM (Rec: 03/11/19 17:19 RM [id number]) Nutrition Notes Initial or Follow up Reassessment Current Diagnosis COPD,Hypertension,Heart Failure,Respiratory Failure Other Pertinent Diagnosis GI bleed, SIRS, Dysphagia, S/P repair infrarenal AAA rupture Current Diet No diet ordered Labs/Tests Reviewed Pertinent Medications Reviewed Height 5 ft 5 in Weight 34 kg [place] Body Weight (kg) 56.81 BMI 12.4 Subjective/Other Information Pt remains on BiPAP. Observed Vital 1.2 trickle feed infusing at 10 ml/hr. Per nurse Dr. Stubbs requested that trickle feed be started but no order was put in. Nurse stated she plans to ask if order will be put in. Burn Absent Trauma Absent #1 Nutrition Diagnosis Predicted suboptimal energy intake Diagnosis Progress(for reassessment Continues documentation) Is patient on ventilator? No Is Patient Ambulatory and/or Out of Bed No REE-([place]-confined to bed) 1039.368 Kcal/Kg value to use for calculation 39 Approximate Energy Requirements Using 1326 kcal/Kg Calculation Used for Recommendations Kcal/kg Additional Notes Protein Needs: 41-51g (1.2-1. 5g/kg) Fluid Needs: 1 ml/kcal Nutrition Intervention Change Diet Order: Continue trickle feed Kcal 288 Protein (gm) 18 Fluid (mL) 195 Goal #1 TF tolerance Anticipated Discharge Needs: Unable to determine at this time Follow-Up By: 03/13/19 Additional Comments Follow for TF tolerance - Attestation Statement I have reviewed and agreed w/ Malnutrition eval & tx plan: Yes
[2019-03-12] MEDS: HEPARIN/ 0.45% NACL-25,000 UNIT/500 ML 25,000 UNIT/500 ML BAG IV SCH ×2 (04:12→21:57)
[2019-03-12] MEDS: VANCOMYCIN 500 MG in NACL 0.9% 100 ML IV SCH ×2 (04:13→17:04)
[2019-03-12 05:26] LABS: Hematocrit 22.6 % (30.3-42.9); Hemoglobin 7.3 gm/dl (10.1-14.3); Mean Corpuscular HGB Conc 32 % (30-34); Mean Corpuscular Volume 91 fl (79-97); Platelet Count 314 K/mm3 (140-440); Red Blood Count 2.49 M/mm3 (3.65-5.03); Red Cell Distribution Width 17.8 % (13.2-15.2)
[2019-03-12 05:51] LABS: BUN/Creatinine Ratio 100; Blood Urea Nitrogen 30 mg/dL (7-17); Calcium 9.4 mg/dL (8.4-10.2); Hemolysis Index 6
[2019-03-12] MEDS: MAXIPIME/NS 2 GM/100 ML 2 GM/100 ML BAG IV SCH ×2 (06:05→17:04)
[2019-03-12] MEDS: PULMICORT IH SCH ×2 (07:58→20:03)
[2019-03-12] MEDS: BROVANA NEBU IH SCH ×2 (07:58→20:03)
[2019-03-12] MEDS: PROTONIX IV SCH ×2 (09:39→21:58)
[2019-03-12] MEDS: DIFLUCAN 200 MG/100 ML BAG IV SCH (09:39)
[2019-03-12] MEDS: SODIUM CHLORIDE FLUSH SYRINGE 10 ML IV SCH ×2 (09:40→21:59)
[2019-03-12] MEDS ORDERED: D5W IV SCH (10:00)
[2019-03-12] MEDS ORDERED: SIMPLE SYRUP FEEDTUBE PRN ×2 (10:00)
[2019-03-12] MEDS ORDERED: SODIUM BICARBONATE IV SCH (10:00)
[2019-03-12] MEDS ORDERED: KCL IV SCH (10:00)
[2019-03-12] MEDS ORDERED: PANCREAZE DR 10,500 UNIT FEEDTUBE PRN (10:00)
[2019-03-12] MEDS ORDERED: SODIUM BICARBONATE FEEDTUBE PRN (10:00)
--- NOTE | 2019-03-12 10:29 | Progress Note ---
Assessment and Plan Cultures: Blood cultures 03/06/2019 no growth MRSA screening positive Urine culture Zakiya 10-100K Assessment: 68 y/o female with history of CHF, COPD and a recent prolonged hospitalization on 02/03/2019-02/20/2019 due to altered mental status, respiratory distress and bowel obstruction with volvulus she underwent an exploratory laparotomy and right hemicolectomy on 02/11/2019, developed persistent leukocytosis with elevated lactate likely due to bilateral pneumonia HCAP with acute respiratory failure treated with cefepime and vancomycin for 5 days. Unfortunately, on she became acutely short of breath and hypotensive and dropped her hemoglobin. CT angiogram revealed ruptured 5 cm infrarenal AAA. She was transferred to [place]. She received AAA repair at [place] on 02/21/19, has a maintained on heparin drip. She was also to have a nonocclusive subacute to diesel mechanic helper yovana DVT of bilateral lower extremities. She was found to have melena on 02/23, underwent flexible sigmoidoscopy and EGD followed by exploratory laparoscopy and completion of total colectomy, abdominal washout and end ileostomy on 02/24. 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 She was transferred back to [facility]. ID consulted for new fever 102.2. 1) Severe Sepsis: no fever but some episodes of hypothermia, leukocytosis down to 18K. Etiology most likely HAP +/- UTI. 2) HAP: prolonged complicated hospital stay in [facility] and [place]. S/p recent total colectomy, abdominal washout and end ileostomy on 02/24. 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 CXR bilateral infiltrates. 3) CAUTI ? Candiduria 4) Volvulus / recent GI bleed 5) Severe malnutrition Recommendations: - obtain [place] micro records - I asked nursing staff today - continue cefepime and vancomcyin with PK consult D6 of 7 - continue fluconazole 200 mg IV qday D2 of 5 - continue contact isolation Very poor prognosis, consider palliative care. Will follow. Judy Desai MD Infectious Diseases [facility] [phone] O [phone] Subjective Date of service: 03/12/19 Principal diagnosis: Ac hypoxemic Resp failure; Severe Anemia; AE-COPD; G.I. Bleed; Septic Shock Interval history: More alert today, still debilitated, no fever, some episodes of hypothermia, now on BIPAP ROS unable to obtain Objective - Exam Narrative Exam: General appearance: alert in mild resp distress on BIPAP cachectic Eyes: anicteric sclerae, moist conjunctivae; no lid-lag; PERRLA HENT: Atraumatic; oropharynx with BIPAP Neck: Trachea midline; supple, no thyromegaly or lymphadenopathy Lungs: gab coarse breath sounds CV: RRR no murmur Abdomen: Soft, midline surg wound with val, distended iliostomy and DANIELA drain Extremities:cachexia Skin: Normal temperature, turgor and texture; no rash, ulcers or subcutaneous nodules Psych: somnolent. Neuro: alert follows simple castillo - Constitutional Vitals: Vital Signs Temp Pulse Resp BP Pulse Ox 96.0 F L 98 H 18 114/62 94 03/12/19 04:00 03/12/19 08:05 03/12/19 08:05 03/12/19 07:55 03/12/19 09:38 Temperature -Last 24 Hours Temperature 96.0 F Temperature 95.7 F Temperature 98.0 F - Labs CBC & Chem 7: 03/12/19 04:42 03/12/19 04:42 Labs: Abnormal lab results 03/11/19 03/11/19 03/12/19 Range/Units 11:43 23:42 02:15 WBC (4.5-11.0) K/mm3 RBC (3.65-5.03) M/mm3 Hgb (10.1-14.3) gm/dl Hct (30.3-42.9) % RDW (13.2-15.2) % Potassium (3.6-5.0) mmol/L Chloride (98-107) mmol/L BUN (7-17) mg/dL Creatinine (0.7-1.2) mg/dL Glucose (65-100) mg/dL POC Glucose 123 H 154 H 146 H (70-105) 03/12/19 03/12/19 03/12/19 Range/Units 04:42 04:42 07:23 WBC 12.5 H (4.5-11.0) K/mm3 RBC 2.49 L (3.65-5.03) M/mm3 Hgb 7.3 L (10.1-14.3) gm/dl Hct 22.6 L (30.3-42.9) % RDW 17.8 H (13.2-15.2) % Potassium 2.9 L* D (3.6-5.0) mmol/L Chloride 110.8 H (98-107) mmol/L BUN 30 H (7-17) mg/dL Creatinine 0.3 L (0.7-1.2) mg/dL Glucose 133 H (65-100) mg/dL POC Glucose 160 H (70-105)
--- NOTE | 2019-03-12 12:13 | Progress Note ---
Assessment and Plan Assessment and plan: Toxic metabolic encephalopathy Apparently the patient has been minimally responsive but every before she was transferred Infrarenal AAA rupture -sp surgical repair at [facility], vasc sx consulted Hypokalemia. Replete potassium. Bilat LE DVT cont heparin Drip, will need to transition to oral meds when safe to do so, will defer to vasc sx and hematology Sepsis, present on admission On Cefepime and vancomycin Blood cultures drawn broad spectrum abx, ID consulted, following Acute resp failure with hypoxia has been on BIPAP. Pulmonology following Hospital-acquired pneumonia Patient with prolonged hospital stay at [facility] and [facility]. CXR bilateral infiltrates. GI bleed; resolved sp total colectomy Acute blood loss anemia; 2/2 above, was transfused Acute Copd exacerbation- continue bronchodilators/nebulizers. Acute on chronic systolic CHF EF 25% cardiology consulted, following Debility etiology due to multiple surgeries and prolonged ICU stay, PT/OT and CM consult Dysphagia; ST consulted Prognosis guarded Full code status. The high probability of a clinically significant, sudden or life threatening deterioration of the [respiratory] system(s) required my full and direct attention, intervention and personal management. The aggregate critical care time was [32] minutes. This time is in addition to time spent performing reported procedures but includes the following: [x] Data Review and interpretation [x] Patient assessment and monitoring of vital signs [x] Documentation [x] Medication orders and management History Interval history: Patient is 68 yo female with PMHx of CHF, COPD, who was brought to the ER by EMS initially on 02/03/19 after a fall at home, altered mental status, respiratory distress. Per EMS patient was found in severe respiratory distress, laying on the floor and covered in her feces. According to EMS the had asked a neighbor to call EMS because the patient fell on the floor and he was unable to pick her up. He states that she had been sick for a few days, she had trouble breathing, and he had been taking a lot of "goody powder" for pain. The patient was found to be confused, lethargic, hypotensive, hypothermic, tachypneic, with hemoglobin of 1.9, severe anemia. She was admitted -She was transfused, treated for severe anemia, COPD exacerbation, CHF. Respiratory failure worsened requiring intubation. She received PPI, EGD was planned but the patient was unstable to get the test. She also developed bowel obstruction, received exploratory laparoscopy, right hemicolectomy for cecal volvulus and large bowel obstruction. The patient was extubated on 02/04/19. Patient was improving and placed on a pured diet. However on 02/20/19 she became acutely short of breath and hypotensive, she again had a drop in hemoglobin. CT angiogram revealed ruptured 5 cm infrarenal AAA. She was seen by vascular surgery, and was transferred to [facility]. She received AAA repair at [facility] on 02/21/19. While she was at [facility] she had ultrasound of lower extremity which showed non-occlusive subacute to chronic DVT of bilateral lower extremities, put on Heparin drip. She was found to have melena on 02/23, underwent flexible sigmoidoscopy and EGD followed by exploratory laparoscopy and completion of total colectomy, abdominal washout and end ileostomy on 02/24/19. Patient has been sent back to [facility] and re-admitted 03/06/19. Hospitalist Physical - Constitutional Vitals: Temp Pulse Resp BP Pulse Ox 95.9 F L 97 H 28 H 115/67 98 03/12/19 08:00 03/12/19 12:00 03/12/19 12:00 03/12/19 12:00 03/12/19 12:00 General appearance: Present: no acute distress, other (on BiPAP) - EENT Eyes: Present: PERRL, EOM intact ENT: hearing intact, clear oral mucosa, dentition normal - Neck Neck: Present: supple, normal ROM - Respiratory Respiratory effort: normal Respiratory: bilateral: CTA - Cardiovascular Rhythm: regular Heart Sounds: Present: S1 & S2. Absent: gallop, rub - Extremities Extremities: no ischemia, No edema, Full ROM - Abdominal General gastrointestinal: soft, non-tender, non-distended, normal bowel sounds - Integumentary Integumentary: Present: clear, warm, dry - Neurologic Neurologic: CNII-XII intact, moves all extremities Results - Labs CBC & Chem 7: 03/12/19 04:42 03/12/19 04:42 Labs: Laboratory Last Values WBC 12.5 K/mm3 (4.5-11.0) H 03/12/19 04:42 RBC 2.49 M/mm3 (3.65-5.03) L 03/12/19 04:42 Hgb 7.3 gm/dl (10.1-14.3) L 03/12/19 04:42 Hct 22.6 % (30.3-42.9) L 03/12/19 04:42 MCV 91 fl (79-97) 03/12/19 04:42 MCH 30 pg (28-32) 03/12/19 04:42 MCHC 32 % (30-34) 03/12/19 04:42 RDW 17.8 % (13.2-15.2) H 03/12/19 04:42 Plt Count 314 K/mm3 (140-440) 03/12/19 04:42 Add Manual Diff Complete 03/07/19 07:56 Total Counted 100 03/07/19 07:56 Seg Neuts % (Manual) 91.0 % (40.0-70.0) H 03/07/19 07:56 3.0 % 03/07/19 07:56 3.0 % (13.4-35.0) L 03/07/19 07:56 Reactive Lymphs % (Man) 0 % 03/07/19 07:56 2.0 % (0.0-7.3) 03/07/19 07:56 0 % (0.0-4.3) 03/07/19 07:56 1.0 % (0.0-1.8) 03/07/19 07:56 0 % 03/07/19 07:56 0 % 03/07/19 07:56 0 % 03/07/19 07:56 0 % 03/07/19 07:56 Nucleated RBC % Not Reportable 03/07/19 07:56 Seg Neutrophils # Man 15.6 K/mm3 (1.8-7.7) H 03/07/19 07:56 Band Neutrophils # 0.5 K/mm3 03/07/19 07:56 0.5 K/mm3 (1.2-5.4) L 03/07/19 07:56 Abs React Lymphs (Man) 0.0 K/mm3 03/07/19 07:56 0.3 K/mm3 (0.0-0.8) 03/07/19 07:56 0.0 K/mm3 (0.0-0.4) 03/07/19 07:56 0.2 K/mm3 (0.0-0.1) H 03/07/19 07:56 0.0 K/mm3 03/07/19 07:56 0.0 K/mm3 03/07/19 07:56 0.0 K/mm3 03/07/19 07:56 Blast Cells # 0.0 K/mm3 03/07/19 07:56 WBC Morphology Not Reportable 03/07/19 07:56 Hypersegmented Neuts Not Reportable 03/07/19 07:56 Hyposegmented Neuts Not Reportable 03/07/19 07:56 Hypogranular Neuts Not Reportable 03/07/19 07:56 Not Reportable 03/07/19 07:56 Not Reportable 03/07/19 07:56 Not Reportable 03/07/19 07:56 Not Reportable 03/07/19 07:56 Not Reportable 03/07/19 07:56 Not Reportable 03/07/19 07:56 Consistent w auto 03/07/19 07:56 Not Reportable 03/07/19 07:56 Plt Clumps, EDTA Not Reportable 03/07/19 07:56 Not Reportable 03/07/19 07:56 Not Reportable 03/07/19 07:56 Not Reportable 03/07/19 07:56 Plt Morphology Comment Not Reportable 03/07/19 07:56 RBC Morphology Not Reportable 03/07/19 07:56 Dimorphic RBCs Not Reportable 03/07/19 07:56 Few 03/07/19 07:56 Not Reportable 03/07/19 07:56 Not Reportable 03/07/19 07:56 1+ 03/07/19 07:56 Not Reportable 03/07/19 07:56 Not Reportable 03/07/19 07:56 Not Reportable 03/07/19 07:56 Not Reportable 03/07/19 07:56 Not Reportable 03/07/19 07:56 Not Reportable 03/07/19 07:56 Not Reportable 03/07/19 07:56 Not Reportable 03/07/19 07:56 Not Reportable 03/07/19 07:56 Not Reportable 03/07/19 07:56 Not Reportable 03/07/19 07:56 Not Reportable 03/07/19 07:56 Not Reportable 03/07/19 07:56 Not Reportable 03/07/19 07:56 Not Reportable 03/07/19 07:56 Acanthocytes (Spur) Not Reportable 03/07/19 07:56 Rouleaux Not Reportable 03/07/19 07:56 Not Reportable 03/07/19 07:56 Not Reportable 03/07/19 07:56 Not Reportable 03/07/19 07:56 Not Reportable 03/07/19 07:56 Hem Pathologist Commnt No 03/07/19 07:56 PT 14.6 Sec. (12.2-14.9) 03/06/19 23:52 INR 1.17 (0.87-1.13) H 03/06/19 23:52 APTT 34.8 Sec. (24.2-36.6) 03/06/19 23:52 Heparin Anti-Xa Level 0.44 U.I./ml (0.3-0.7) 03/11/19 11:05 POC ABG pH 7.464 (7.35-7.45) H 03/10/19 09:50 POC ABG pCO2 36.4 (35-45) 03/07/19 21:24 POC ABG pO2 160 (80-105) H 03/10/19 09:50 POC ABG HCO3 13.9 (22-26 mml/L) 03/10/19 09:50 POC ABG Total CO2 14 (23-27mmol/L) 03/10/19 09:50 POC ABG O2 Sat 100 03/10/19 09:50 POC ABG Base Excess -10 ((-2) - (+3)mmol/L) 03/10/19 09:50 80 % 03/10/19 09:50 Sodium 145 mmol/L (137-145) 03/12/19 04:42 Potassium 2.9 mmol/L (3.6-5.0) L* D 03/12/19 04:42 Chloride 110.8 mmol/L (98-107) H 03/12/19 04:42 Carbon Dioxide 23 mmol/L (22-30) D 03/12/19 04:42 14 mmol/L 03/12/19 04:42 BUN 30 mg/dL (7-17) H 03/12/19 04:42 0.3 mg/dL (0.7-1.2) L 03/12/19 04:42 Estimated GFR > 60 ml/min 03/12/19 04:42 100 % 03/12/19 04:42 Glucose 133 mg/dL (65-100) H 03/12/19 04:42 POC Glucose 160 (70-105) H 03/12/19 07:23 Calcium 9.4 mg/dL (8.4-10.2) 03/12/19 04:42 Phosphorus 3.50 mg/dL (2.5-4.5) 03/07/19 08:17 Magnesium 2.20 mg/dL (1.7-2.3) 03/07/19 08:17 0.60 mg/dL (0.1-1.2) 03/07/19 07:56 AST 22 units/L (5-40) 03/07/19 07:56 ALT 22 units/L (7-56) 03/07/19 07:56 253 units/L (35-129) H 03/07/19 07:56 21.0 umol/L (25-60) L 03/08/19 12:02 27.00 mg/dL (0.00-1.30) H 03/07/19 15:25 5.4 g/dL (6.3-8.2) L 03/07/19 07:56 2.0 g/dL (3.9-5) L 03/07/19 07:56 0.6 % 03/07/19 07:56 Marisela (Yellow) 03/07/19 18:35 Cloudy (Clear) 03/07/19 18:35 6.0 (5.0-7.0) 03/07/19 18:35 Ur Specific [place] 1.026 (1.003-1.030) 03/07/19 18:35 100 mg/dl mg/dL (Negative) 03/07/19 18:35 Neg mg/dL (Negative) 03/07/19 18:35 Neg mg/dL (Negative) 03/07/19 18:35 Mod (Negative) 03/07/19 18:35 Neg (Negative) 03/07/19 18:35 Neg (Negative) 03/07/19 18:35 < 2.0 mg/dL (<2.0) 03/07/19 18:35 Ur Leukocyte Esterase Mod (Negative) 03/07/19 18:35 123.0 /HPF (0.0-6.0) H 03/07/19 18:35 > 182.0 /HPF (0.0-6.0) 03/07/19 18:35 U Epithel Cells (Auto) 1.0 /HPF (0-13.0) 03/07/19 18:35 4+ /HPF (Negative) 03/07/19 18:35 Hyaline Casts 10 /LPF 03/07/19 18:35 3+ /HPF 03/07/19 18:35 3+ /HPF 03/07/19 18:35 Vancomycin Trough 14.8 ug/mL (5.0-20.0) 03/09/19 03:43 Blood Type A POSITIVE 03/07/19 07:19 Antibody Screen Negative 03/07/19 07:19 Active Medications - Current Medications Current Medications: Generic Name Dose Route Start Last Admin Trade Name Freq PRN Reason Stop Dose Admin Acetaminophen 650 mg 03/06/19 23:37 03/07/19 07:34 Tylenol PO 650 mg Q4H PRN Administration Pain MILD(1-3)/Fever >100.5/DOMINGUEZ Albuterol 2.5 mg 03/06/19 23:37 Proventil IH Q4HRT PRN Shortness Of Breath Lipase/Protease/Amylase 1 each 03/12/19 10:00 Pancrebrant Smith 10,500 Unit FEEDTUBE PRN PRN For Clogged Feeding Tube Arformoterol Tartrate 15 mcg 03/07/19 08:00 03/12/19 07:58 Brovana Nebu IH 15 mcg Q12HRT JOEL Administration Budesonide 0.5 mg 03/07/19 08:00 03/12/19 07:58 Pulmicort IH 0.5 mg Q12HRT JOEL Administration Dextrose 50 ml 03/07/19 13:57 03/10/19 17:01 D50w (25gm) Syringe IV 50 ml PRN PRN Administration Hypoglycemia Hydrophilic Ointment 1 applic 03/06/19 23:31 Vaseline Lip Therapy TP Q2HR PRN Dry Lips Heparin Sodium/Sodium Chloride 25,000 unit in 500 mls @ 14.28 mls/hr 03/06/19 23:45 03/12/19 04:12 Heparin/ 0.45% Nacl-25,000 Unit/500 Ml IV 1,050 units/hr TITR JOEL 21 mls/hr Administration Protocol 714 UNITS/HR Vancomycin HCl 500 mg/ Sodium 110 mls @ 55 mls/hr 03/07/19 17:00 03/12/19 04:13 Chloride IV 55 mls/hr Q12H JOEL Administration Cefepime HCl 2 gm in 100 mls @ 200 mls/hr 03/08/19 18:00 03/12/19 06:05 Maxipime/Ns 2 Gm/100 Ml IV 200 mls/hr Q12HR@0600,1800 JOEL Administration Protocol Fluconazole 200 mg in 100 mls @ 100 mls/hr 03/11/19 11:00 03/12/19 09:39 Diflucan IV 100 mls/hr Q24HR [facility] Administration Protocol Sodium Bicarbonate 150 meq/ 1,170 mls @ 42 mls/hr 03/12/19 10:00 Potassium Chloride 40 meq/ IV 03/13/19 09:59 Dextrose DIRECT [facility] Morphine Sulfate 2 mg 03/06/19 23:37 03/10/19 08:50 Morphine IV 2 mg Q4H PRN Administration Pain, Moderate (4-6) Ondansetron HCl 4 mg 03/06/19 23:37 Zofran IV Q8H PRN Nausea And Vomiting Oxycodone/Acetaminophen 1 tab 03/06/19 23:37 03/11/19 17:09 Percocet 5/325 PO 1 tab Q6H PRN Administration Pain, Moderate (4-6) Pantoprazole Sodium 40 mg 03/07/19 10:00 03/12/19 09:39 Protonix IV 40 mg BID JOEL Administration Simple Syrup 15 ml 03/12/19 10:00 Simple Syrup FEEDTUBE PRN PRN Hypoglycemia Simple Syrup 30 ml 03/12/19 10:00 Simple Syrup FEEDTUBE PRN PRN Hypoglycemia Sodium Bicarbonate 325 mg 03/12/19 10:00 Sodium Bicarbonate FEEDTUBE PRN PRN For Clogged Feeding Tube Sodium Chloride 10 ml 03/07/19 10:00 03/12/19 09:40 Sodium Chloride Flush Syringe 10 Ml IV 10 ml BID JOEL Administration Sodium Chloride 10 ml 03/06/19 23:37 Sodium Chloride Flush Syringe 10 Ml IV PRN PRN LINE FLUSH Nutrition/Malnutrition Assess - Dietary Evaluation Nutrition/Malnutrition Findings: Nutrition Notes Start: 03/07/19 15:10 Freq: Status: Active Protocol: Document 03/11/19 17:12 RM (Rec: 03/11/19 17:19 RM [id number]) Nutrition Notes Initial or Follow up Reassessment Current Diagnosis COPD,Hypertension,Heart Failure,Respiratory Failure Other Pertinent Diagnosis GI bleed, SIRS, Dysphagia, S/P repair infrarenal AAA rupture Current Diet No diet ordered Labs/Tests Reviewed Pertinent Medications Reviewed Height 5 ft 5 in Weight 34 kg [place] Body Weight (kg) 56.81 BMI 12.4 Subjective/Other Information Pt remains on BiPAP. Observed Vital 1.2 trickle feed infusing at 10 ml/hr. Per nurse Dr. Stubbs requested that trickle feed be started but no order was put in. Nurse stated she plans to ask if order will be put in. Burn Absent Trauma Absent #1 Nutrition Diagnosis Predicted suboptimal energy intake Diagnosis Progress(for reassessment Continues documentation) Is patient on ventilator? No Is Patient Ambulatory and/or Out of Bed No REE-([facility]-confined to bed) 1039.368 Kcal/Kg value to use for calculation 39 Approximate Energy Requirements Using 1326 kcal/Kg Calculation Used for Recommendations Kcal/kg Additional Notes Protein Needs: 41-51g (1.2-1. 5g/kg) Fluid Needs: 1 ml/kcal Nutrition Intervention Change Diet Order: Continue trickle feed Kcal 288 Protein (gm) 18 Fluid (mL) 195 Goal #1 TF tolerance Anticipated Discharge Needs: Unable to determine at this time Follow-Up By: 03/13/19 Additional Comments Follow for TF tolerance
--- NOTE | 2019-03-12 13:39 | Progress Note ---
Assessment and Plan Patient weak. Patient resting on BiPAP 12/6, rate 20, F5O2 40%. O2 Sat 96%. Patient undergone repaid of abdominal aneurysm and also subsequently undergone colectomy and illiactomy. Patient afebril and patient has leukocytosis. Patient is on Cefepime, Fluconazole and Vencomycine. - Patient Problems (1) Pulmonary embolus, left Current Visit: Yes Status: Acute Plan to address problem: Patient is on IV Heparin. (2) Status post AAA (abdominal aortic aneurysm) repair Current Visit: Yes Status: Acute Plan to address problem: Patient undergone abdominal aortic aneurysm at the [facility]. (3) Status post total colectomy Current Visit: Yes Status: Acute Plan to address problem: Patient developed ischemia post abdominal aortic aneurysm. Patient undergone total colectomy and illiactomy. (4) DVT (deep venous thrombosis) Current Visit: Yes Status: Suspected Plan to address problem: Patient is on IV Heparin. (5) Acute respiratory failure Current Visit: No Status: Acute Plan to address problem: Patient is on BiPAP 12/6, rate 20, F5O2 40%. O2 Sat 96%. Continue Brovana and Budesinide earosol treatment q12h. Patient is on IV Heparin. Continue Protonex. (6) COPD exacerbation Current Visit: No Status: Acute Plan to address problem: Patient is on BiPAP 12/6, rate 20, F5O2 40%. O2 Sat 96%. Continue Brovana and Budesinide earosol treatment q12h. Patient is on IV Heparin. Continue Protonex. (7) Pneumonia Current Visit: No Status: Acute Plan to address problem: Patient is on Cefepime, Fluconazole and Vancomycin. Subjective Date of service: 03/12/19 Principal diagnosis: Ac hypoxemic Resp failure; Severe Anemia; AE-COPD; G.I. Bleed; Septic Shock Interval history: Patient weak. Patient resting on BiPAP 12/6, rate 20, F5O2 40%. O2 Sat 96%. Patient undergone repaid of abdominal aneurysm and also subsequently undergone colectomy and illiactomy. Patient afebril and patient has leukocytosis. Patient is on Cefepime, Fluconazole and Vencomycine. Objective Vital Signs - 12hr 03/12/19 03/12/19 03/12/19 01:41 01:51 02:00 Temperature Pulse Rate 92 H 89 91 H Pulse Rate [ Anterior Bilateral Throughout] Pulse Rate [ From Monitor] Respiratory 19 28 H 23 Rate Respiratory Rate [Anterior Bilateral Throughout] Blood Pressure 108/55 108/55 97/49 O2 Sat by Pulse 98 98 98 Oximetry 03/12/19 03/12/19 03/12/19 02:11 02:21 02:31 Temperature Pulse Rate 94 H 93 H 93 H Pulse Rate [ Anterior Bilateral Throughout] Pulse Rate [ From Monitor] Respiratory 31 H 29 H 26 H Rate Respiratory Rate [Anterior Bilateral Throughout] Blood Pressure 97/49 97/49 97/49 O2 Sat by Pulse 99 99 99 Oximetry 03/12/19 03/12/19 03/12/19 02:41 02:51 03:00 Temperature Pulse Rate 94 H 96 H 98 H Pulse Rate [ Anterior Bilateral Throughout] Pulse Rate [ From Monitor] Respiratory 29 H 27 H 34 H Rate Respiratory Rate [Anterior Bilateral Throughout] Blood Pressure 97/49 97/49 108/57 O2 Sat by Pulse 99 99 99 Oximetry 03/12/19 03/12/19 03/12/19 03:11 03:20 03:31 Temperature Pulse Rate 92 H 95 H 97 H Pulse Rate [ Anterior Bilateral Throughout] Pulse Rate [ From Monitor] Respiratory 27 H 29 H 28 H Rate Respiratory Rate [Anterior Bilateral Throughout] Blood Pressure 108/57 108/57 108/57 O2 Sat by Pulse 98 99 99 Oximetry 03/12/19 03/12/19 03/12/19 03:39 03:41 03:51 Temperature Pulse Rate 94 H 95 H 97 H Pulse Rate [ Anterior Bilateral Throughout] Pulse Rate [ From Monitor] Respiratory 21 25 H 26 H Rate Respiratory Rate [Anterior Bilateral Throughout] Blood Pressure 108/57 108/57 108/57 O2 Sat by Pulse 100 100 99 Oximetry 03/12/19 03/12/19 03/12/19 04:00 04:11 04:21 Temperature 96.0 F L Pulse Rate 96 H 96 H 96 H Pulse Rate [ Anterior Bilateral Throughout] Pulse Rate [ 94 H From Monitor] Respiratory 25 H 27 H 28 H Rate Respiratory Rate [Anterior Bilateral Throughout] Blood Pressure 103/56 103/56 103/56 O2 Sat by Pulse 98 99 99 Oximetry 03/12/19 03/12/19 03/12/19 04:31 04:41 04:51 Temperature Pulse Rate 100 H 98 H 104 H Pulse Rate [ Anterior Bilateral Throughout] Pulse Rate [ From Monitor] Respiratory 31 H 25 H 29 H Rate Respiratory Rate [Anterior Bilateral Throughout] Blood Pressure 103/56 103/56 103/56 O2 Sat by Pulse 98 98 91 Oximetry 03/12/19 03/12/19 03/12/19 05:00 05:11 05:21 Temperature Pulse Rate 101 H 103 H 103 H Pulse Rate [ Anterior Bilateral Throughout] Pulse Rate [ From Monitor] Respiratory 29 H 31 H 30 H Rate Respiratory Rate [Anterior Bilateral Throughout] Blood Pressure 103/53 103/53 103/53 O2 Sat by Pulse 88 88 87 Oximetry 03/12/19 03/12/19 03/12/19 05:31 05:41 05:51 Temperature Pulse Rate 103 H 102 H 103 H Pulse Rate [ Anterior Bilateral Throughout] Pulse Rate [ From Monitor] Respiratory 30 H 26 H 30 H Rate Respiratory Rate [Anterior Bilateral Throughout] Blood Pressure 103/53 103/53 103/53 O2 Sat by Pulse 88 88 87 Oximetry 03/12/19 03/12/19 03/12/19 06:00 06:11 06:21 Temperature Pulse Rate 103 H 105 H 108 H Pulse Rate [ Anterior Bilateral Throughout] Pulse Rate [ From Monitor] Respiratory 31 H 29 H 34 H Rate Respiratory Rate [Anterior Bilateral Throughout] Blood Pressure 114/57 114/57 114/57 O2 Sat by Pulse 85 91 88 Oximetry 03/12/19 03/12/19 03/12/19 06:31 06:40 06:51 Temperature Pulse Rate 100 H 97 H 99 H Pulse Rate [ Anterior Bilateral Throughout] Pulse Rate [ From Monitor] Respiratory 30 H 23 26 H Rate Respiratory Rate [Anterior Bilateral Throughout] Blood Pressure 114/57 114/57 114/57 O2 Sat by Pulse 98 96 96 Oximetry 03/12/19 03/12/19 03/12/19 07:00 07:50 07:55 Temperature Pulse Rate 96 H 100 H Pulse Rate [ 100 H Anterior Bilateral Throughout] Pulse Rate [ From Monitor] Respiratory 26 H 22 Rate Respiratory 18 Rate [Anterior Bilateral Throughout] Blood Pressure 114/57 114/62 O2 Sat by Pulse 98 100 Oximetry 03/12/19 03/12/19 03/12/19 08:00 08:05 09:00 Temperature 95.9 F L Pulse Rate 103 H 98 H Pulse Rate [ 98 H Anterior Bilateral Throughout] Pulse Rate [ From Monitor] Respiratory 35 H 28 H Rate Respiratory 18 Rate [Anterior Bilateral Throughout] Blood Pressure 114/62 112/65 O2 Sat by Pulse 98 99 Oximetry 03/12/19 03/12/19 03/12/19 09:38 10:00 11:00 Temperature Pulse Rate 98 H 93 H Pulse Rate [ Anterior Bilateral Throughout] Pulse Rate [ From Monitor] Respiratory 30 H 28 H Rate Respiratory Rate [Anterior Bilateral Throughout] Blood Pressure 111/55 112/61 O2 Sat by Pulse 94 99 99 Oximetry 03/12/19 03/12/19 12:00 12:45 Temperature 96.8 F L Pulse Rate 97 H 97 H Pulse Rate [ Anterior Bilateral Throughout] Pulse Rate [ From Monitor] Respiratory 28 H 28 H Rate Respiratory Rate [Anterior Bilateral Throughout] Blood Pressure 115/67 115/67 O2 Sat by Pulse 98 98 Oximetry Constitutional: no acute distress, asleep, other (petite elderly looking CF, normocephalic and atraumatic with increased resp effort on continuous BIPAP at rest) Eyes: non-icteric ENT: oropharynx dry, other (BIPAP FFM) Neck: supple, no lymphadenopathy, no JVD Effort: mildly labored Ascultation: Bilateral: diminished breath sounds, rhonchi Percussion: Bilateral: not dull Cardiovascular: regular rate and rhythm, murmur noted (systolic) Gastrointestinal: normoactive bowel sounds, soft, non-tender, non-distended Integumentary: other (poor turgor) Extremities: no cyanosis, no edema, pink and warm, pulses normal, no ischemia or petechiae Neurologic: non-focal exam (grossly), pupils equal and round, CN II-XII normal, other (lethargic) CBC and BMP: 03/12/19 04:42 03/12/19 04:42 ABG, PT/INR, D-dimer: ABG POC ABG pH 7.464 (7.35-7.45) H 03/10/19 09:50 POC ABG pO2 160 (80-105) H 03/10/19 09:50 POC ABG HCO3 13.9 (22-26 mml/L) 03/10/19 09:50 POC ABG Total CO2 14 (23-27mmol/L) 03/10/19 09:50 POC ABG O2 Sat 100 03/10/19 09:50 PT/INR, D-dimer PT 14.6 Sec. (12.2-14.9) 03/06/19 23:52 INR 1.17 (0.87-1.13) H 03/06/19 23:52 Abnormal lab findings: Abnormal Labs 03/06/19 03/06/19 03/07/19 23:52 23:52 05:57 WBC RBC Hgb 9.0 L Hct 27.6 L MCV RDW Seg Neuts % (Manual) Lymphocytes % (Manual) Seg Neutrophils # Man Lymphocytes # (Manual) Basophils # (Manual) INR 1.17 H Heparin Anti-Xa Level POC ABG pH 7.249 L POC ABG pCO2 49.2 H POC ABG pO2 73 L Potassium Chloride Carbon Dioxide BUN Creatinine Glucose POC Glucose Alkaline Phosphatase Ammonia C-Reactive Protein Total Protein Albumin Urine WBC (Auto) 03/07/19 03/07/19 03/07/19 07:19 07:56 07:56 WBC 17.1 H RBC 3.13 L Hgb 9.5 L Hct 30.1 L MCV RDW 19.5 H Seg Neuts % (Manual) 91.0 H Lymphocytes % (Manual) 3.0 L Seg Neutrophils # Man 15.6 H Lymphocytes # (Manual) 0.5 L Basophils # (Manual) 0.2 H INR Heparin Anti-Xa Level < 0.10 L POC ABG pH POC ABG pCO2 POC ABG pO2 Potassium Chloride 110.7 H Carbon Dioxide 21 L BUN 21 H Creatinine 0.2 L Glucose 63 L POC Glucose Alkaline Phosphatase 253 H Ammonia C-Reactive Protein Total Protein 5.4 L Albumin 2.0 L Urine WBC (Auto) 03/07/19 03/07/19 03/07/19 14:13 15:25 18:35 WBC RBC Hgb Hct MCV RDW Seg Neuts % (Manual) Lymphocytes % (Manual) Seg Neutrophils # Man Lymphocytes # (Manual) Basophils # (Manual) INR Heparin Anti-Xa Level POC ABG pH 7.317 L POC ABG pCO2 34.3 L POC ABG pO2 50 L Potassium Chloride Carbon Dioxide BUN Creatinine Glucose POC Glucose Alkaline Phosphatase Ammonia C-Reactive Protein 27.00 H Total Protein Albumin Urine WBC (Auto) 123.0 H 03/07/19 03/08/19 03/08/19 21:24 00:23 02:25 WBC 20.2 H RBC 2.85 L Hgb 8.7 L Hct 26.9 L MCV RDW 18.2 H Seg Neuts % (Manual) Lymphocytes % (Manual) Seg Neutrophils # Man Lymphocytes # (Manual) Basophils # (Manual) INR Heparin Anti-Xa Level 0.12 L POC ABG pH 7.319 L POC ABG pCO2 POC ABG pO2 244 H Potassium Chloride Carbon Dioxide BUN Creatinine Glucose POC Glucose Alkaline Phosphatase Ammonia C-Reactive Protein Total Protein Albumin Urine WBC (Auto) 03/08/19 03/08/19 03/08/19 02:25 12:02 12:02 WBC RBC Hgb Hct MCV RDW Seg Neuts % (Manual) Lymphocytes % (Manual) Seg Neutrophils # Man Lymphocytes # (Manual) Basophils # (Manual) INR Heparin Anti-Xa Level 0.21 L POC ABG pH POC ABG pCO2 POC ABG pO2 Potassium Chloride 111.9 H Carbon Dioxide 17 L BUN 33 H Creatinine 0.3 L Glucose 63 L POC Glucose Alkaline Phosphatase Ammonia 21.0 L C-Reactive Protein Total Protein Albumin Urine WBC (Auto) 03/08/19 03/09/19 03/09/19 18:50 03:43 03:43 WBC 20.5 H RBC 2.44 L Hgb 7.5 L Hct 22.5 L MCV RDW 18.2 H Seg Neuts % (Manual) Lymphocytes % (Manual) Seg Neutrophils # Man Lymphocytes # (Manual) Basophils # (Manual) INR Heparin Anti-Xa Level 0.13 L POC ABG pH POC ABG pCO2 POC ABG pO2 Potassium Chloride 112.0 H Carbon Dioxide 15 L BUN 37 H Creatinine 0.4 L Glucose 58 L POC Glucose Alkaline Phosphatase Ammonia C-Reactive Protein Total Protein Albumin Urine WBC (Auto) 03/09/19 03/10/19 03/10/19 03:43 09:41 09:41 WBC 18.2 H RBC 2.55 L Hgb 7.8 L Hct 25.0 L MCV 98 H RDW 19.1 H Seg Neuts % (Manual) Lymphocytes % (Manual) Seg Neutrophils # Man Lymphocytes # (Manual) Basophils # (Manual) INR Heparin Anti-Xa Level 0.15 L POC ABG pH POC ABG pCO2 POC ABG pO2 Potassium Chloride 116.0 H Carbon Dioxide 12 L BUN 35 H Creatinine 0.3 L Glucose 42 L POC Glucose Alkaline Phosphatase Ammonia C-Reactive Protein Total Protein Albumin Urine WBC (Auto) 03/10/19 03/10/1919 09:41 09:50 16:58 WBC RBC Hgb Hct MCV RDW Seg Neuts % (Manual) Lymphocytes % (Manual) Seg Neutrophils # Man Lymphocytes # (Manual) Basophils # (Manual) INR Heparin Anti-Xa Level 0.12 L POC ABG pH 7.464 H POC ABG pCO2 POC ABG pO2 160 H Potassium Chloride Carbon Dioxide BUN Creatinine Glucose POC Glucose 58 L Alkaline Phosphatase Ammonia C-Reactive Protein Total Protein Albumin Urine WBC (Auto) 03/10/19 03/11/19 03/11/19 17:33 11:43 23:42 WBC RBC Hgb Hct MCV RDW Seg Neuts % (Manual) Lymphocytes % (Manual) Seg Neutrophils # Man Lymphocytes # (Manual) Basophils # (Manual) INR Heparin Anti-Xa Level POC ABG pH POC ABG pCO2 POC ABG pO2 Potassium Chloride Carbon Dioxide BUN Creatinine Glucose POC Glucose 214 H 123 H 154 H Alkaline Phosphatase Ammonia C-Reactive Protein Total Protein Albumin Urine WBC (Auto) 03/12/19 03/12/19 03/12/19 02:15 04:42 04:42 WBC 12.5 H RBC 2.49 L Hgb 7.3 L Hct 22.6 L MCV RDW 17.8 H Seg Neuts % (Manual) Lymphocytes % (Manual) Seg Neutrophils # Man Lymphocytes # (Manual) Basophils # (Manual) INR Heparin Anti-Xa Level POC ABG pH POC ABG pCO2 POC ABG pO2 Potassium 2.9 L* D Chloride 110.8 H Carbon Dioxide BUN 30 H Creatinine 0.3 L Glucose 133 H POC Glucose 146 H Alkaline Phosphatase Ammonia C-Reactive Protein Total Protein Albumin Urine WBC (Auto) 03/12/19 03/12/19 07:23 11:41 WBC RBC Hgb Hct MCV RDW Seg Neuts % (Manual) Lymphocytes % (Manual) Seg Neutrophils # Man Lymphocytes # (Manual) Basophils # (Manual) INR Heparin Anti-Xa Level 0.24 L POC ABG pH POC ABG pCO2 POC ABG pO2 Potassium Chloride Carbon Dioxide BUN Creatinine Glucose POC Glucose 160 H Alkaline Phosphatase Ammonia C-Reactive Protein Total Protein Albumin Urine WBC (Auto)
--- NOTE | 2019-03-12 14:48 | Progress Note ---
Assessment and Plan 68 yo F with 1. 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 ARF - on BIPAP 3. ruptured AAA s/p repair at [facility] 4. s/p total colectomy and ileostomy at [facility] 5. sepsis 2/2 PNA, UTI 6. malnutrition 7. hx CHF, EF 20-25% Plan: 1. TF restarted per 1' team - adv as tolerated 2. if cannot consistently have TF, would recommend TPN for nutrition 3. GI ppx 4. DVT ppx 5. prn pain control 6. ostomy care 7. sepsis - mgmt per ID and Pulm 8. obtain operative records from [facility] - patient has drain and new val. Would be helpful to know when last surgery was done to determine when it will be safe to remove val and guide management of DANIELA drain. I discussed the patient's condition with her at the bedside. I explained to him that she has had multiple medical and surgical issues in a short period of time and it will be difficult for her to fully recover. I explained to him that I am unsure if she will return to her prehospital state and how much she will be able to do for herself. He acknowledges that she is sick but may not fully understand her overall condition. Family wants aggressive care per notes. Recommend family meeting to discuss goals. D/w Dr. Frank. I will make myself available for the meeting once it is set up. Thank you, please call with questions. Subjective Date of service: 03/12/19 Narrative: Pt seen and examined. No acute change in condition. Not responsive Objective Vital Signs - 12hr 03/12/19 03/12/19 03/12/19 02:51 03:00 03:11 Temperature Pulse Rate 96 H 98 H 92 H Pulse Rate [ Anterior Bilateral Throughout] Pulse Rate [ From Monitor] Respiratory 27 H 34 H 27 H Rate Respiratory Rate [Anterior Bilateral Throughout] Blood Pressure 97/49 108/57 108/57 O2 Sat by Pulse 99 99 98 Oximetry 03/12/19 03/12/19 03/12/19 03:20 03:31 03:39 Temperature Pulse Rate 95 H 97 H 94 H Pulse Rate [ Anterior Bilateral Throughout] Pulse Rate [ From Monitor] Respiratory 29 H 28 H 21 Rate Respiratory Rate [Anterior Bilateral Throughout] Blood Pressure 108/57 108/57 108/57 O2 Sat by Pulse 99 99 100 Oximetry 03/12/19 03/12/19 03/12/19 03:41 03:51 04:00 Temperature 96.0 F L Pulse Rate 95 H 97 H 96 H Pulse Rate [ Anterior Bilateral Throughout] Pulse Rate [ 94 H From Monitor] Respiratory 25 H 26 H 25 H Rate Respiratory Rate [Anterior Bilateral Throughout] Blood Pressure 108/57 108/57 103/56 O2 Sat by Pulse 100 99 98 Oximetry 03/12/19 03/12/19 03/12/19 04:11 04:21 04:31 Temperature Pulse Rate 96 H 96 H 100 H Pulse Rate [ Anterior Bilateral Throughout] Pulse Rate [ From Monitor] Respiratory 27 H 28 H 31 H Rate Respiratory Rate [Anterior Bilateral Throughout] Blood Pressure 103/56 103/56 103/56 O2 Sat by Pulse 99 99 98 Oximetry 03/12/19 03/12/19 03/12/19 04:41 04:51 05:00 Temperature Pulse Rate 98 H 104 H 101 H Pulse Rate [ Anterior Bilateral Throughout] Pulse Rate [ From Monitor] Respiratory 25 H 29 H 29 H Rate Respiratory Rate [Anterior Bilateral Throughout] Blood Pressure 103/56 103/56 103/53 O2 Sat by Pulse 98 91 88 Oximetry 03/12/19 03/12/19 03/12/19 05:11 05:21 05:31 Temperature Pulse Rate 103 H 103 H 103 H Pulse Rate [ Anterior Bilateral Throughout] Pulse Rate [ From Monitor] Respiratory 31 H 30 H 30 H Rate Respiratory Rate [Anterior Bilateral Throughout] Blood Pressure 103/53 103/53 103/53 O2 Sat by Pulse 88 87 88 Oximetry 03/12/19 03/12/19 03/12/19 05:41 05:51 06:00 Temperature Pulse Rate 102 H 103 H 103 H Pulse Rate [ Anterior Bilateral Throughout] Pulse Rate [ From Monitor] Respiratory 26 H 30 H 31 H Rate Respiratory Rate [Anterior Bilateral Throughout] Blood Pressure 103/53 103/53 114/57 O2 Sat by Pulse 88 87 85 Oximetry 03/12/19 03/12/19 03/12/19 06:11 06:21 06:31 Temperature Pulse Rate 105 H 108 H 100 H Pulse Rate [ Anterior Bilateral Throughout] Pulse Rate [ From Monitor] Respiratory 29 H 34 H 30 H Rate Respiratory Rate [Anterior Bilateral Throughout] Blood Pressure 114/57 114/57 114/57 O2 Sat by Pulse 91 88 98 Oximetry 03/12/19 03/12/19 03/12/19 06:40 06:51 07:00 Temperature Pulse Rate 97 H 99 H 96 H Pulse Rate [ Anterior Bilateral Throughout] Pulse Rate [ From Monitor] Respiratory 23 26 H 26 H Rate Respiratory Rate [Anterior Bilateral Throughout] Blood Pressure 114/57 114/57 114/57 O2 Sat by Pulse 96 96 98 Oximetry 03/12/19 03/12/19 03/12/19 07:50 07:55 08:00 Temperature 95.9 F L Pulse Rate 100 H 103 H Pulse Rate [ 100 H Anterior Bilateral Throughout] Pulse Rate [ From Monitor] Respiratory 22 35 H Rate Respiratory 18 Rate [Anterior Bilateral Throughout] Blood Pressure 114/62 114/62 O2 Sat by Pulse 100 98 Oximetry 03/12/19 03/12/19 03/12/19 08:05 09:00 09:38 Temperature Pulse Rate 98 H Pulse Rate [ 98 H Anterior Bilateral Throughout] Pulse Rate [ From Monitor] Respiratory 28 H Rate Respiratory 18 Rate [Anterior Bilateral Throughout] Blood Pressure 112/65 O2 Sat by Pulse 99 94 Oximetry 03/12/19 03/12/19 03/12/19 10:00 11:00 12:00 Temperature 96.8 F L Pulse Rate 98 H 93 H 97 H Pulse Rate [ Anterior Bilateral Throughout] Pulse Rate [ From Monitor] Respiratory 30 H 28 H 28 H Rate Respiratory Rate [Anterior Bilateral Throughout] Blood Pressure 111/55 112/61 115/67 O2 Sat by Pulse 99 99 98 Oximetry 03/12/19 12:45 Temperature Pulse Rate 97 H Pulse Rate [ Anterior Bilateral Throughout] Pulse Rate [ From Monitor] Respiratory 28 H Rate Respiratory Rate [Anterior Bilateral Throughout] Blood Pressure 115/67 O2 Sat by Pulse 98 Oximetry - General physical appearance Narrative Exam: Gen: Arouses spontaneously, opens eyes spontaneously, does not follow any commands ENT: dobhoff and BIPAP in place CV: s1, s2+ resp; even and unlabored Abd: soft, NT, ND. incision c/d/i. Ostomy with stool in bag. DANIELA drain cloudy serous fluid Ext: no c/c/e - Labs 03/12/19 04:42 03/12/19 04:42 Diabetes panel 03/12/19 Range/Units 04:42 Sodium 145 (137-145) mmol/L Potassium 2.9 L* D (3.6-5.0) mmol/L Chloride 110.8 H (98-107) mmol/L Carbon Dioxide 23 D (22-30) mmol/L BUN 30 H (7-17) mg/dL Creatinine 0.3 L (0.7-1.2) mg/dL Glucose 133 H (65-100) mg/dL Calcium 9.4 (8.4-10.2) mg/dL Calcium panel 03/12/19 Range/Units 04:42 Calcium 9.4 (8.4-10.2) mg/dL Pituitary panel 03/12/19 Range/Units 04:42 Sodium 145 (137-145) mmol/L Potassium 2.9 L* D (3.6-5.0) mmol/L Chloride 110.8 H (98-107) mmol/L Carbon Dioxide 23 D (22-30) mmol/L BUN 30 H (7-17) mg/dL Creatinine 0.3 L (0.7-1.2) mg/dL Glucose 133 H (65-100) mg/dL Calcium 9.4 (8.4-10.2) mg/dL Adrenal panel 03/12/19 Range/Units 04:42 Sodium 145 (137-145) mmol/L Potassium 2.9 L* D (3.6-5.0) mmol/L Chloride 110.8 H (98-107) mmol/L Carbon Dioxide 23 D (22-30) mmol/L BUN 30 H (7-17) mg/dL Creatinine 0.3 L (0.7-1.2) mg/dL Glucose 133 H (65-100) mg/dL Calcium 9.4 (8.4-10.2) mg/dL
[2019-03-12 18:19] LABS: BUN/Creatinine Ratio 90; Blood Urea Nitrogen 27 mg/dL (7-17); Calcium 9.2 mg/dL (8.4-10.2); Hemolysis Index 18
[2019-03-12] MEDS ORDERED: POTASSIUM CHLORIDE FEEDTUBE ONE (21:00)
[2019-03-13] MEDS: VANCOMYCIN 500 MG in NACL 0.9% 100 ML IV SCH (05:01)
[2019-03-13] MEDS: MAXIPIME/NS 2 GM/100 ML 2 GM/100 ML BAG IV SCH (06:00)
[2019-03-13 06:03] LABS: Hematocrit 21.9 % (30.3-42.9); Hemoglobin 7.2 gm/dl (10.1-14.3); Mean Corpuscular HGB Conc 33 % (30-34); Mean Corpuscular Volume 90 fl (79-97); Platelet Count 289 K/mm3 (140-440); Red Blood Count 2.44 M/mm3 (3.65-5.03); Red Cell Distribution Width 17.6 % (13.2-15.2)
[2019-03-13 06:30] LABS: BUN/Creatinine Ratio 83; Blood Urea Nitrogen 25 mg/dL (7-17); Calcium 9.2 mg/dL (8.4-10.2); Hemolysis Index 0
[2019-03-13 06:54] LABS: Basophils % (Manual) 0 % (0.0-1.8); RBC Morphology Normal; Total Cells Counted 100
[2019-03-13] MEDS: PULMICORT IH SCH ×2 (07:00→20:37)
[2019-03-13] MEDS: BROVANA NEBU IH SCH ×2 (07:00→20:38)
[2019-03-13] MEDS ORDERED: KCL 40 MEQ in D5W 1,000 ML IV SCH (08:00)
--- NOTE | 2019-03-13 09:31 | Progress Note ---
Assessment and Plan Cultures: Blood cultures 03/06/2019 no growth MRSA screening positive Urine culture Zakiya 10-100K Assessment: 68 y/o female with history of CHF, COPD and a recent prolonged hospitalization on 02/03/2019-02/20/2019 due to altered mental status, respiratory distress and bowel obstruction with volvulus she underwent an exploratory laparotomy and right hemicolectomy on 02/11/2019, developed persistent leukocytosis with elevated lactate likely due to bilateral pneumonia HCAP with acute respiratory failure treated with cefepime and vancomycin for 5 days. Unfortunately, on she became acutely short of breath and hypotensive and dropped her hemoglobin. CT angiogram revealed ruptured 5 cm infrarenal AAA. She was transferred to [place]. She received AAA repair at [place] on 02/21/19, has a maintained on heparin drip. She was also to have a nonocclusive subacute to search marketing analyst yovana DVT of bilateral lower extremities. She was found to have melena on 02/23, underwent flexible sigmoidoscopy and EGD followed by exploratory laparoscopy and completion of total colectomy, abdominal washout and end ileostomy on 02/24. 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 She was transferred back to [facility]. ID consulted for new fever 102.2. 1) Severe Sepsis: no fever but some episodes of hypothermia, leukocytosis 20-->13K. Etiology most likely HAP +/- UTI. 2) HAP: prolonged complicated hospital stay in [facility] and [place]. S/p recent total colectomy, abdominal washout and end ileostomy on 02/24. She also developed Burkholderia pneumonia ([place] records reviewed BAL 02/23/2019 +Burkholderia cepacia treated with fortaz x 7 days, MARLYN not available), CXR bilateral infiltrates. 3) CAUTI ? Candiduria 4) Volvulus / recent GI bleed 5) Severe malnutrition Recommendations: - obtain [place] micro records - I asked nursing staff today - stop cefepime and vancomcyin with PK consult D7 of 7 - continue fluconazole 200 mg IV qday D3 of 5 - continue contact isolation Very poor prognosis. Will follow. Judy Desai MD Infectious Diseases [facility] M [phone] O [phone] Subjective Date of service: 03/13/19 Principal diagnosis: Ac hypoxemic Resp failure; Severe Anemia; AE-COPD; G.I. Bleed; Septic Shock Interval history: More alert today, no fever, some episodes of hypothermia, now on HFO2, at bedside. ROS unable to obtain Objective - Exam Narrative Exam: General appearance: alert in mild resp distress on HFO2 cachectic Eyes: anicteric sclerae, moist conjunctivae; no lid-lag; PERRLA HENT: Atraumatic; oropharynx with BIPAP Neck: Trachea midline; supple, no thyromegaly or lymphadenopathy Lungs: gab coarse breath sounds CV: RRR no murmur Abdomen: Soft, midline surg wound with val, distended iliostomy and DANIELA drain Extremities:cachexia Skin: Normal temperature, turgor and texture; no rash, ulcers or subcutaneous nodules Psych: somnolent. Neuro: alert follows simple castillo - Constitutional Vitals: Vital Signs Temp Pulse Resp BP Pulse Ox 97.8 F 109 H 26 H 106/49 97 03/13/19 07:46 03/13/19 08:00 03/13/19 08:00 03/13/19 08:00 03/13/19 08:00 Temperature -Last 24 Hours Temperature 97.8 F Temperature 98.8 F Temperature 99.0 F Temperature 99.7 F Temperature 96.8 F - Labs CBC & Chem 7: 03/13/19 05:17 03/13/19 05:17 Labs: Abnormal lab results 03/12/19 03/12/19 03/12/19 Range/Units 11:41 17:42 23:22 WBC (4.5-11.0) K/mm3 RBC (3.65-5.03) M/mm3 Hgb (10.1-14.3) gm/dl Hct (30.3-42.9) % RDW (13.2-15.2) % Seg Neuts % (Manual) (40.0-70.0) % Lymphocytes % (Manual) (13.4-35.0) % Seg Neutrophils # Man (1.8-7.7) K/mm3 Lymphocytes # (Manual) (1.2-5.4) K/mm3 Heparin Anti-Xa Level 0.24 L (0.3-0.7) U.I./ml Sodium 146 H (137-145) mmol/L Potassium 3.2 L (3.6-5.0) mmol/L Chloride 111.6 H (98-107) mmol/L BUN 27 H (7-17) mg/dL Creatinine 0.3 L (0.7-1.2) mg/dL Glucose 116 H (65-100) mg/dL POC Glucose 130 H (70-105) 03/13/19 03/13/19 03/13/19 Range/Units 05:17 05:17 05:21 WBC 13.1 H (4.5-11.0) K/mm3 RBC 2.44 L (3.65-5.03) M/mm3 Hgb 7.2 L (10.1-14.3) gm/dl Hct 21.9 L (30.3-42.9) % RDW 17.6 H (13.2-15.2) % Seg Neuts % (Manual) 90.0 H (40.0-70.0) % Lymphocytes % (Manual) 5.0 L (13.4-35.0) % Seg Neutrophils # Man 11.8 H (1.8-7.7) K/mm3 Lymphocytes # (Manual) 0.7 L (1.2-5.4) K/mm3 Heparin Anti-Xa Level (0.3-0.7) U.I./ml Sodium (137-145) mmol/L Potassium 3.1 L (3.6-5.0) mmol/L Chloride 110.2 H (98-107) mmol/L BUN 25 H (7-17) mg/dL Creatinine 0.3 L (0.7-1.2) mg/dL Glucose 157 H (65-100) mg/dL POC Glucose 181 H (70-105)
--- NOTE | 2019-03-13 10:00 | Progress Note ---
Assessment and Plan Patient weak. Patient resting on High flow O2, FIO2 45% and O2 saturation running 93%. Patient undergone repair of abdominal aneurysm and also subsequently undergone colectomy and Ileostomy. Patient afebril and patient has leukocytosis. Patient is on Cefepime, Fluconazole and Vencomycine. - Patient Problems (1) Pulmonary embolus, left Current Visit: Yes Status: Acute Plan to address problem: Patient is on IV Heparin. (2) Status post AAA (abdominal aortic aneurysm) repair Current Visit: Yes Status: Acute Plan to address problem: Patient undergone abdominal aortic aneurysm at the [facility]. (3) Status post total colectomy Current Visit: Yes Status: Acute Plan to address problem: Patient developed ischemia post abdominal aortic aneurysm. Patient undergone total colectomy and ileostomy.. (4) DVT (deep venous thrombosis) Current Visit: Yes Status: Suspected Plan to address problem: Patient is on IV Heparin. (5) Acute respiratory failure Current Visit: No Status: Acute Plan to address problem: Patient is on High flow O2, FIO2 45%. Continue Brovana and Budesinide aerosol treatment q12h. Patient is on IV Heparin. Continue Protonex. (6) COPD exacerbation Current Visit: No Status: Acute Plan to address problem: Patient is on High flow O2. FIO2 45%. Continue Brovana and Budesinide aerosol treatment q12h. Patient is on IV Heparin. Continue Protonix. (7) Pneumonia Current Visit: No Status: Acute Plan to address problem: Patient is on Cefepime, Fluconazole and Vancomycin. Repeating chest xray tomorrow. Subjective Date of service: 03/13/19 Principal diagnosis: Ac hypoxemic Resp failure; Severe Anemia; AE-COPD; G.I. Bleed; Septic Shock Interval history: Patient weak. Patient resting on High flow O2, FIO2 45% and O2 saturation running 93%. Patient undergone repair of abdominal aneurysm and also subsequently undergone colectomy and Ileostomy. Patient afebril and patient has leukocytosis. Patient is on Cefepime, Fluconazole and Vencomycine. Objective Vital Signs - 12hr 03/12/19 03/12/19 03/12/19 22:00 23:00 23:11 Temperature Pulse Rate 106 H 102 H 101 H Pulse Rate [ Anterior Bilateral Throughout] Pulse Rate [ From Monitor] Respiratory 30 H 34 H 33 H Rate Respiratory Rate [Anterior Bilateral Throughout] Blood Pressure 109/52 113/52 113/52 O2 Sat by Pulse 96 95 97 Oximetry 03/13/19 03/13/19 03/13/19 00:00 00:15 01:00 Temperature 99.0 F Pulse Rate 103 H 98 H 104 H Pulse Rate [ Anterior Bilateral Throughout] Pulse Rate [ 107 H From Monitor] Respiratory 31 H 31 H 28 H Rate Respiratory Rate [Anterior Bilateral Throughout] Blood Pressure 106/54 106/54 108/56 O2 Sat by Pulse 97 98 98 Oximetry 03/13/19 03/13/19 03/13/19 02:00 03:00 03:15 Temperature Pulse Rate 107 H 108 H 105 H Pulse Rate [ Anterior Bilateral Throughout] Pulse Rate [ From Monitor] Respiratory 34 H 30 H 27 H Rate Respiratory Rate [Anterior Bilateral Throughout] Blood Pressure 122/63 128/68 128/68 O2 Sat by Pulse 98 98 97 Oximetry 03/13/19 03/13/19 03/13/19 04:00 05:00 06:00 Temperature 98.8 F Pulse Rate 103 H 106 H 101 H Pulse Rate [ Anterior Bilateral Throughout] Pulse Rate [ 109 H From Monitor] Respiratory 29 H 33 H 33 H Rate Respiratory Rate [Anterior Bilateral Throughout] Blood Pressure 110/60 112/60 106/47 O2 Sat by Pulse 98 97 96 Oximetry 03/13/19 03/13/19 03/13/19 07:00 07:24 07:46 Temperature 97.8 F Pulse Rate 97 H Pulse Rate [ 94 H Anterior Bilateral Throughout] Pulse Rate [ From Monitor] Respiratory 28 H Rate Respiratory 23 Rate [Anterior Bilateral Throughout] Blood Pressure 104/57 O2 Sat by Pulse 98 96 Oximetry 03/13/19 03/13/19 08:00 09:00 Temperature Pulse Rate 95 H 102 H Pulse Rate [ Anterior Bilateral Throughout] Pulse Rate [ 109 H From Monitor] Respiratory 21 31 H Rate Respiratory Rate [Anterior Bilateral Throughout] Blood Pressure 106/49 104/52 O2 Sat by Pulse 97 96 Oximetry Constitutional: no acute distress, asleep, other (petite elderly looking CF, normocephalic and atraumatic with increased resp effort on continuous BIPAP at rest) Eyes: non-icteric ENT: oropharynx dry, other (BIPAP FFM) Neck: supple, no lymphadenopathy, no JVD Effort: mildly labored Ascultation: Bilateral: diminished breath sounds, rhonchi Percussion: Bilateral: not dull Cardiovascular: regular rate and rhythm, murmur noted (systolic) Gastrointestinal: normoactive bowel sounds, soft, non-tender, non-distended Integumentary: other (poor turgor) Extremities: no cyanosis, no edema, pink and warm, pulses normal, no ischemia or petechiae Neurologic: non-focal exam (grossly), pupils equal and round, CN II-XII normal, other (lethargic) CBC and BMP: 03/13/19 05:17 03/13/19 05:17 ABG, PT/INR, D-dimer: ABG POC ABG pH 7.464 (7.35-7.45) H 03/10/19 09:50 POC ABG pO2 160 (80-105) H 03/10/19 09:50 POC ABG HCO3 13.9 (22-26 mml/L) 03/10/19 09:50 POC ABG Total CO2 14 (23-27mmol/L) 03/10/19 09:50 POC ABG O2 Sat 100 03/10/19 09:50 PT/INR, D-dimer PT 14.6 Sec. (12.2-14.9) 03/06/19 23:52 INR 1.17 (0.87-1.13) H 03/06/19 23:52 Abnormal lab findings: Abnormal Labs 03/06/19 03/06/19 03/07/19 23:52 23:52 05:57 WBC RBC Hgb 9.0 L Hct 27.6 L MCV RDW Seg Neuts % (Manual) Lymphocytes % (Manual) Seg Neutrophils # Man Lymphocytes # (Manual) Basophils # (Manual) INR 1.17 H Heparin Anti-Xa Level POC ABG pH 7.249 L POC ABG pCO2 49.2 H POC ABG pO2 73 L Sodium Potassium Chloride Carbon Dioxide BUN Creatinine Glucose POC Glucose Alkaline Phosphatase Ammonia C-Reactive Protein Total Protein Albumin Urine WBC (Auto) 03/07/19 03/07/19 03/07/19 07:19 07:56 07:56 WBC 17.1 H RBC 3.13 L Hgb 9.5 L Hct 30.1 L MCV RDW 19.5 H Seg Neuts % (Manual) 91.0 H Lymphocytes % (Manual) 3.0 L Seg Neutrophils # Man 15.6 H Lymphocytes # (Manual) 0.5 L Basophils # (Manual) 0.2 H INR Heparin Anti-Xa Level < 0.10 L POC ABG pH POC ABG pCO2 POC ABG pO2 Sodium Potassium Chloride 110.7 H Carbon Dioxide 21 L BUN 21 H Creatinine 0.2 L Glucose 63 L POC Glucose Alkaline Phosphatase 253 H Ammonia C-Reactive Protein Total Protein 5.4 L Albumin 2.0 L Urine WBC (Auto) 03/07/19 03/07/19 03/07/19 14:13 15:25 18:35 WBC RBC Hgb Hct MCV RDW Seg Neuts % (Manual) Lymphocytes % (Manual) Seg Neutrophils # Man Lymphocytes # (Manual) Basophils # (Manual) INR Heparin Anti-Xa Level POC ABG pH 7.317 L POC ABG pCO2 34.3 L POC ABG pO2 50 L Sodium Potassium Chloride Carbon Dioxide BUN Creatinine Glucose POC Glucose Alkaline Phosphatase Ammonia C-Reactive Protein 27.00 H Total Protein Albumin Urine WBC (Auto) 123.0 H 03/07/19 03/08/19 03/08/19 21:24 00:23 02:25 WBC 20.2 H RBC 2.85 L Hgb 8.7 L Hct 26.9 L MCV RDW 18.2 H Seg Neuts % (Manual) Lymphocytes % (Manual) Seg Neutrophils # Man Lymphocytes # (Manual) Basophils # (Manual) INR Heparin Anti-Xa Level 0.12 L POC ABG pH 7.319 L POC ABG pCO2 POC ABG pO2 244 H Sodium Potassium Chloride Carbon Dioxide BUN Creatinine Glucose POC Glucose Alkaline Phosphatase Ammonia C-Reactive Protein Total Protein Albumin Urine WBC (Auto) 03/08/19 03/08/19 03/08/19 02:25 12:02 12:02 WBC RBC Hgb Hct MCV RDW Seg Neuts % (Manual) Lymphocytes % (Manual) Seg Neutrophils # Man Lymphocytes # (Manual) Basophils # (Manual) INR Heparin Anti-Xa Level 0.21 L POC ABG pH POC ABG pCO2 POC ABG pO2 Sodium Potassium Chloride 111.9 H Carbon Dioxide 17 L BUN 33 H Creatinine 0.3 L Glucose 63 L POC Glucose Alkaline Phosphatase Ammonia 21.0 L C-Reactive Protein Total Protein Albumin Urine WBC (Auto) 03/08/19 03/09/19 03/09/19 18:50 03:43 03:43 WBC 20.5 H RBC 2.44 L Hgb 7.5 L Hct 22.5 L MCV RDW 18.2 H Seg Neuts % (Manual) Lymphocytes % (Manual) Seg Neutrophils # Man Lymphocytes # (Manual) Basophils # (Manual) INR Heparin Anti-Xa Level 0.13 L POC ABG pH POC ABG pCO2 POC ABG pO2 Sodium Potassium Chloride 112.0 H Carbon Dioxide 15 L BUN 37 H Creatinine 0.4 L Glucose 58 L POC Glucose Alkaline Phosphatase Ammonia C-Reactive Protein Total Protein Albumin Urine WBC (Auto) 03/09/19 03/10/19 03/10/19 03:43 09:41 09:41 WBC 18.2 H RBC 2.55 L Hgb 7.8 L Hct 25.0 L MCV 98 H RDW 19.1 H Seg Neuts % (Manual) Lymphocytes % (Manual) Seg Neutrophils # Man Lymphocytes # (Manual) Basophils # (Manual) INR Heparin Anti-Xa Level 0.15 L POC ABG pH POC ABG pCO2 POC ABG pO2 Sodium Potassium Chloride 116.0 H Carbon Dioxide 12 L BUN 35 H Creatinine 0.3 L Glucose 42 L POC Glucose Alkaline Phosphatase Ammonia C-Reactive Protein Total Protein Albumin Urine WBC (Auto) 03/10/19 03/10/19 03/10/19 09:41 09:50 16:58 WBC RBC Hgb Hct MCV RDW Seg Neuts % (Manual) Lymphocytes % (Manual) Seg Neutrophils # Man Lymphocytes # (Manual) Basophils # (Manual) INR Heparin Anti-Xa Level 0.12 L POC ABG pH 7.464 H POC ABG pCO2 POC ABG pO2 160 H Sodium Potassium Chloride Carbon Dioxide BUN Creatinine Glucose POC Glucose 58 L Alkaline Phosphatase Ammonia C-Reactive Protein Total Protein Albumin Urine WBC (Auto) 03/10/19 03/11/19 03/11/19 17:33 11:43 23:42 WBC RBC Hgb Hct MCV RDW Seg Neuts % (Manual) Lymphocytes % (Manual) Seg Neutrophils # Man Lymphocytes # (Manual) Basophils # (Manual) INR Heparin Anti-Xa Level POC ABG pH POC ABG pCO2 POC ABG pO2 Sodium Potassium Chloride Carbon Dioxide BUN Creatinine Glucose POC Glucose 214 H 123 H 154 H Alkaline Phosphatase Ammonia C-Reactive Protein Total Protein Albumin Urine WBC (Auto) 03/12/19 03/12/19 03/12/19 02:15 04:42 04:42 WBC 12.5 H RBC 2.49 L Hgb 7.3 L Hct 22.6 L MCV RDW 17.8 H Seg Neuts % (Manual) Lymphocytes % (Manual) Seg Neutrophils # Man Lymphocytes # (Manual) Basophils # (Manual) INR Heparin Anti-Xa Level POC ABG pH POC ABG pCO2 POC ABG pO2 Sodium Potassium 2.9 L* D Chloride 110.8 H Carbon Dioxide BUN 30 H Creatinine 0.3 L Glucose 133 H POC Glucose 146 H Alkaline Phosphatase Ammonia C-Reactive Protein Total Protein Albumin Urine WBC (Auto) 03/12/19 03/12/19 03/12/19 07:23 11:41 17:42 WBC RBC Hgb Hct MCV RDW Seg Neuts % (Manual) Lymphocytes % (Manual) Seg Neutrophils # Man Lymphocytes # (Manual) Basophils # (Manual) INR Heparin Anti-Xa Level 0.24 L POC ABG pH POC ABG pCO2 POC ABG pO2 Sodium 146 H Potassium 3.2 L Chloride 111.6 H Carbon Dioxide BUN 27 H Creatinine 0.3 L Glucose 116 H POC Glucose 160 H Alkaline Phosphatase Ammonia C-Reactive Protein Total Protein Albumin Urine WBC (Auto) 03/12/19 03/13/19 03/13/19 23:22 05:17 05:17 WBC 13.1 H RBC 2.44 L Hgb 7.2 L Hct 21.9 L MCV RDW 17.6 H Seg Neuts % (Manual) 90.0 H Lymphocytes % (Manual) 5.0 L Seg Neutrophils # Man 11.8 H Lymphocytes # (Manual) 0.7 L Basophils # (Manual) INR Heparin Anti-Xa Level POC ABG pH POC ABG pCO2 POC ABG pO2 Sodium Potassium 3.1 L Chloride 110.2 H Carbon Dioxide BUN 25 H Creatinine 0.3 L Glucose 157 H POC Glucose 130 H Alkaline Phosphatase Ammonia C-Reactive Protein Total Protein Albumin Urine WBC (Auto) 03/13/19 05:21 WBC RBC Hgb Hct MCV RDW Seg Neuts % (Manual) Lymphocytes % (Manual) Seg Neutrophils # Man Lymphocytes # (Manual) Basophils # (Manual) INR Heparin Anti-Xa Level POC ABG pH POC ABG pCO2 POC ABG pO2 Sodium Potassium Chloride Carbon Dioxide BUN Creatinine Glucose POC Glucose 181 H Alkaline Phosphatase Ammonia C-Reactive Protein Total Protein Albumin Urine WBC (Auto)
[2019-03-13] MEDS: PERCOCET 5/325 PO PRN (10:16)
[2019-03-13] MEDS: DIFLUCAN 200 MG/100 ML BAG IV SCH (10:18)
[2019-03-13] MEDS: PROTONIX IV SCH ×2 (10:18→23:01)
[2019-03-13] MEDS: SODIUM CHLORIDE FLUSH SYRINGE 10 ML IV SCH ×2 (10:20→22:02)
--- NOTE | 2019-03-13 12:33 | Progress Note ---
Assessment and Plan Assessment and plan: Toxic metabolic encephalopathy Loren treat underlying causes. Infrarenal AAA rupture -sp surgical repair at [place], vas sx consulted Hypokalemia. Replete potassium. Bilat LE DVT cont heparin Drip, will need to transition to oral meds when safe to do so, will defer to vasc sx and hematology Sepsis, present on admission On Cefepime and vancomycin Blood cultures drawn broad spectrum abx, ID consulted, following Acute resp failure with hypoxia has been on BIPAP at night and as needed. Pulmonology following Hospital-acquired pneumonia Patient with prolonged hospital stay at [facility] and [place]. CXR bilateral infiltrates. GI bleed; resolved sp total colectomy Acute blood loss anemia; 2/2 above, was transfused Acute Copd exacerbation- continue bronchodilators/nebulizers. Acute on chronic systolic CHF EF 25% cardiology consulted, following Debility etiology due to multiple surgeries and prolonged ICU stay, PT/OT and CM consult Dysphagia; ST consulted Prognosis guarded Full code status. Discussed with and plan of care at bedside. The high probability of a clinically significant, sudden or life threatening deterioration of the [respiratory] system(s) required my full and direct attention, intervention and personal management. The aggregate critical care time was [32] minutes. This time is in addition to time spent performing reported procedures but includes the following: [x] Data Review and interpretation [x] Patient assessment and monitoring of vital signs [x] Documentation [x] Medication orders and management History Interval history: Patient is 68 yo female with PMHx of CHF, COPD, who was brought to the ER by EMS initially on 02/03/19 after a fall at home, altered mental status, respiratory distress. Per EMS patient was found in severe respiratory distress, laying on the floor and covered in her feces. According to EMS the had asked a neighbor to call EMS because the patient fell on the floor and he was unable to pick her up. He states that she had been sick for a few days, she had trouble breathing, and he had been taking a lot of "goody powder" for pain. The patient was found to be confused, lethargic, hypotensive, hypothermic, tachypneic, with hemoglobin of 1.9, severe anemia. She was admitted -She was transfused, treated for severe anemia, COPD exacerbation, CHF. Respiratory failure worsened requiring intubation. She received PPI, EGD was planned but the patient was unstable to get the test. She also developed bowel obstruction, received exploratory laparoscopy, right hemicolectomy for cecal volvulus and large bowel obstruction. The patient was extubated on 02/04/19. Patient was improving and placed on a pured diet. However on 02/20/19 she became acutely short of breath and hypotensive, she again had a drop in hemoglobin. CT angiogram revealed ruptured 5 cm infrarenal AAA. She was seen by vascular surgery, and was transferred to [place]. She received AAA repair at [place] on 02/21/19. While she was at [place] she had ultrasound of lower extremity which showed non-occlusive subacute to chronic DVT of bilateral lower extremities, put on Heparin drip. She was found to have melena on 02/23, underwent flexible sigmoidoscopy and EGD followed by exploratory laparoscopy and completion of total colectomy, abdominal washout and end ileostomy on 02/24/19. Patient has been sent back to [facility] and re-admitted 03/06/19. Hospitalist Physical - Constitutional Vitals: Temp Pulse Resp BP Pulse Ox 97.8 F 118 H 28 H 110/74 95 03/13/19 07:46 03/13/19 12:11 03/13/19 12:11 03/13/19 12:11 03/13/19 12:11 General appearance: Present: no acute distress, other (on BiPAP) - EENT Eyes: Present: PERRL, EOM intact ENT: hearing intact, clear oral mucosa, dentition normal - Neck Neck: Present: supple, normal ROM - Respiratory Respiratory effort: normal Respiratory: bilateral: CTA - Cardiovascular Rhythm: regular Heart Sounds: Present: S1 & S2. Absent: gallop, rub - Extremities Extremities: no ischemia, No edema, Full ROM - Abdominal General gastrointestinal: soft, non-tender, non-distended, normal bowel sounds - Integumentary Integumentary: Present: clear, warm, dry - Neurologic Neurologic: CNII-XII intact, moves all extremities Results - Labs CBC & Chem 7: 03/13/19 05:17 03/13/19 05:17 Labs: Laboratory Last Values WBC 13.1 K/mm3 (4.5-11.0) H 03/13/19 05:17 RBC 2.44 M/mm3 (3.65-5.03) L 03/13/19 05:17 Hgb 7.2 gm/dl (10.1-14.3) L 03/13/19 05:17 Hct 21.9 % (30.3-42.9) L 03/13/19 05:17 MCV 90 fl (79-97) 03/13/19 05:17 MCH 30 pg (28-32) 03/13/19 05:17 MCHC 33 % (30-34) 03/13/19 05:17 RDW 17.6 % (13.2-15.2) H 03/13/19 05:17 Plt Count 289 K/mm3 (140-440) 03/13/19 05:17 Add Manual Diff Complete 03/13/19 05:17 Total Counted 100 03/13/19 05:17 Seg Neutrophils % Cryogenic Transport Driver 03/13/19 05:17 Seg Neuts % (Manual) 90.0 % (40.0-70.0) H 03/13/19 05:17 0 % 03/13/19 05:17 5.0 % (13.4-35.0) L 03/13/19 05:17 Reactive Lymphs % (Man) 0 % 03/13/19 05:17 4.0 % (0.0-7.3) 03/13/19 05:17 1.0 % (0.0-4.3) 03/13/19 05:17 0 % (0.0-1.8) 03/13/19 05:17 0 % 03/13/19 05:17 0 % 03/13/19 05:17 0 % 03/13/19 05:17 0 % 03/13/19 05:17 Nucleated RBC % Not Reportable 03/13/19 05:17 Seg Neutrophils # Man 11.8 K/mm3 (1.8-7.7) H 03/13/19 05:17 Band Neutrophils # 0.0 K/mm3 03/13/19 05:17 0.7 K/mm3 (1.2-5.4) L 03/13/19 05:17 Abs React Lymphs (Man) 0.0 K/mm3 03/13/19 05:17 0.5 K/mm3 (0.0-0.8) 03/13/19 05:17 0.1 K/mm3 (0.0-0.4) 03/13/19 05:17 0.0 K/mm3 (0.0-0.1) 03/13/19 05:17 0.0 K/mm3 03/13/19 05:17 0.0 K/mm3 03/13/19 05:17 0.0 K/mm3 03/13/19 05:17 Blast Cells # 0.0 K/mm3 03/13/19 05:17 WBC Morphology Not Reportable 03/13/19 05:17 Hypersegmented Neuts Not Reportable 03/13/19 05:17 Hyposegmented Neuts Not Reportable 03/13/19 05:17 Hypogranular Neuts Not Reportable 03/13/19 05:17 Not Reportable 03/13/19 05:17 Not Reportable 03/13/19 05:17 Not Reportable 03/13/19 05:17 Not Reportable 03/13/19 05:17 Not Reportable 03/13/19 05:17 Not Reportable 03/13/19 05:17 Not Reportable 03/13/19 05:17 Not Reportable 03/13/19 05:17 Plt Clumps, EDTA Not Reportable 03/13/19 05:17 Not Reportable 03/13/19 05:17 Not Reportable 03/13/19 05:17 Not Reportable 03/13/19 05:17 Plt Morphology Comment Not Reportable 03/13/19 05:17 RBC Morphology Normal 03/13/19 05:17 Dimorphic RBCs Not Reportable 03/13/19 05:17 Not Reportable 03/13/19 05:17 Not Reportable 03/13/19 05:17 Not Reportable 03/13/19 05:17 Not Reportable 03/13/19 05:17 Not Reportable 03/13/19 05:17 Not Reportable 03/13/19 05:17 Not Reportable 03/13/19 05:17 Not Reportable 03/13/19 05:17 Not Reportable 03/13/19 05:17 Not Reportable 03/13/19 05:17 Not Reportable 03/13/19 05:17 Not Reportable 03/13/19 05:17 Not Reportable 03/13/19 05:17 Not Reportable 03/13/19 05:17 Not Reportable 03/13/19 05:17 Not Reportable 03/13/19 05:17 Not Reportable 03/13/19 05:17 Not Reportable 03/13/19 05:17 Not Reportable 03/13/19 05:17 Acanthocytes (Spur) Not Reportable 03/13/19 05:17 Rouleaux Not Reportable 03/13/19 05:17 Not Reportable 03/13/19 05:17 Not Reportable 03/13/19 05:17 Not Reportable 03/13/19 05:17 Not Reportable 03/13/19 05:17 Hem Pathologist Commnt No 03/13/19 05:17 PT 14.6 Sec. (12.2-14.9) 03/06/19 23:52 INR 1.17 (0.87-1.13) H 03/06/19 23:52 APTT 34.8 Sec. (24.2-36.6) 03/06/19 23:52 Heparin Anti-Xa Level 0.45 U.I./ml (0.3-0.7) 03/12/19 17:42 POC ABG pH 7.464 (7.35-7.45) H 03/10/19 09:50 POC ABG pCO2 36.4 (35-45) 03/07/19 21:24 POC ABG pO2 160 (80-105) H 03/10/19 09:50 POC ABG HCO3 13.9 (22-26 mml/L) 03/10/19 09:50 POC ABG Total CO2 14 (23-27mmol/L) 03/10/19 09:50 POC ABG O2 Sat 100 03/10/19 09:50 POC ABG Base Excess -10 ((-2) - (+3)mmol/L) 03/10/19 09:50 80 % 03/10/19 09:50 Sodium 145 mmol/L (137-145) 03/13/19 05:17 Potassium 3.1 mmol/L (3.6-5.0) L 03/13/19 05:17 Chloride 110.2 mmol/L (98-107) H 03/13/19 05:17 Carbon Dioxide 25 mmol/L (22-30) 03/13/19 05:17 13 mmol/L 03/13/19 05:17 BUN 25 mg/dL (7-17) H 03/13/19 05:17 0.3 mg/dL (0.7-1.2) L 03/13/19 05:17 Estimated GFR > 60 ml/min 03/13/19 05:17 83 % 03/13/19 05:17 Glucose 157 mg/dL (65-100) H 03/13/19 05:17 POC Glucose 211 (70-105) H 03/13/19 10:31 Calcium 9.2 mg/dL (8.4-10.2) 03/13/19 05:17 Phosphorus 3.50 mg/dL (2.5-4.5) 03/07/19 08:17 Magnesium 1.70 mg/dL (1.7-2.3) 03/12/19 17:42 0.60 mg/dL (0.1-1.2) 03/07/19 07:56 AST 22 units/L (5-40) 03/07/19 07:56 ALT 22 units/L (7-56) 03/07/19 07:56 253 units/L (35-129) H 03/07/19 07:56 21.0 umol/L (25-60) L 03/08/19 12:02 27.00 mg/dL (0.00-1.30) H 03/07/19 15:25 5.4 g/dL (6.3-8.2) L 03/07/19 07:56 2.0 g/dL (3.9-5) L 03/07/19 07:56 0.6 % 03/07/19 07:56 Marisela (Yellow) 03/07/19 18:35 Cloudy (Clear) 03/07/19 18:35 6.0 (5.0-7.0) 03/07/19 18:35 Ur Specific [place] 1.026 (1.003-1.030) 03/07/19 18:35 100 mg/dl mg/dL (Negative) 03/07/19 18:35 Neg mg/dL (Negative) 03/07/19 18:35 Neg mg/dL (Negative) 03/07/19 18:35 Mod (Negative) 03/07/19 18:35 Neg (Negative) 03/07/19 18:35 Neg (Negative) 03/07/19 18:35 < 2.0 mg/dL (<2.0) 03/07/19 18:35 Ur Leukocyte Esterase Mod (Negative) 03/07/19 18:35 123.0 /HPF (0.0-6.0) H 03/07/19 18:35 > 182.0 /HPF (0.0-6.0) 03/07/19 18:35 U Epithel Cells (Auto) 1.0 /HPF (0-13.0) 03/07/19 18:35 4+ /HPF (Negative) 03/07/19 18:35 Hyaline Casts 10 /LPF 03/07/19 18:35 3+ /HPF 03/07/19 18:35 3+ /HPF 03/07/19 18:35 Vancomycin Trough 14.8 ug/mL (5.0-20.0) 03/09/19 03:43 Blood Type A POSITIVE 03/07/19 07:19 Antibody Screen Negative 03/07/19 07:19 Active Medications - Current Medications Current Medications: Generic Name Dose Route Start Last Admin Trade Name Freq PRN Reason Stop Dose Admin Acetaminophen 650 mg 03/06/19 23:37 03/07/19 07:34 Tylenol PO 650 mg Q4H PRN Administration Pain MILD(1-3)/Fever >100.5/DOMINGUEZ Albuterol 2.5 mg 03/06/19 23:37 Proventil IH Q4HRT PRN Shortness Of Breath Lipase/Protease/Amylase 1 each 03/12/19 10:00 Pancrebrant Smith 10,500 Unit FEEDTUBE PRN PRN For Clogged Feeding Tube Arformoterol Tartrate 15 mcg 03/07/19 08:00 03/13/19 07:00 Brovana Nebu IH 15 mcg Q12HRT JOEL Administration Budesonide 0.5 mg 03/07/19 08:00 03/13/19 07:00 Pulmicort IH 0.5 mg Q12HRT JOEL Administration Dextrose 50 ml 03/07/19 13:57 03/10/19 17:01 D50w (25gm) Syringe IV 50 ml PRN PRN Administration Hypoglycemia Hydrophilic Ointment 1 applic 03/06/19 23:31 Vaseline Lip Therapy TP Q2HR PRN Dry Lips Heparin Sodium/Sodium Chloride 25,000 unit in 500 mls @ 14.28 mls/hr 03/06/19 23:45 03/12/19 21:57 Heparin/ 0.45% Nacl-25,000 Unit/500 Ml IV 1,100 units/hr TITR JOEL 22 mls/hr Administration Protocol 714 UNITS/HR Fluconazole 200 mg in 100 mls @ 100 mls/hr 03/11/19 11:00 03/13/19 10:18 Diflucan IV 100 mls/hr Q24HR JOEL Administration Protocol Morphine Sulfate 2 mg 03/06/19 23:37 03/10/19 08:50 Morphine IV 2 mg Q4H PRN Administration Pain, Moderate (4-6) Ondansetron HCl 4 mg 03/06/19 23:37 Zofran IV Q8H PRN Nausea And Vomiting Oxycodone/Acetaminophen 1 tab 03/06/19 23:37 03/13/19 10:16 Percocet 5/325 PO 1 tab Q6H PRN Administration Pain, Moderate (4-6) Pantoprazole Sodium 40 mg 03/07/19 10:00 03/13/19 10:18 Protonix IV 40 mg BID JOEL Administration Simple Syrup 15 ml 03/12/19 10:00 Simple Syrup FEEDTUBE PRN PRN Hypoglycemia Simple Syrup 30 ml 03/12/19 10:00 Simple Syrup FEEDTUBE PRN PRN Hypoglycemia Sodium Bicarbonate 325 mg 03/12/19 10:00 Sodium Bicarbonate FEEDTUBE PRN PRN For Clogged Feeding Tube Sodium Chloride 10 ml 03/07/19 10:00 03/13/19 10:20 Sodium Chloride Flush Syringe 10 Ml IV 10 ml BID JOEL Administration Sodium Chloride 10 ml 03/06/19 23:37 03/13/19 06:07 Sodium Chloride Flush Syringe 10 Ml IV 10 ml PRN PRN Administration LINE FLUSH Nutrition/Malnutrition Assess - Dietary Evaluation Nutrition/Malnutrition Findings: Nutrition Notes Start: 03/07/19 15:10 Freq: Status: Active Protocol: Document 03/12/19 12:54 LP (Rec: 03/12/19 13:01 LP [id number]) Nutrition Notes Need for Assessment generated from: MD Order Initial or Follow up Reassessment Current Diagnosis COPD,Hypertension,Heart Failure,Respiratory Failure Other Pertinent Diagnosis GI bleed, SIRS, Dysphagia, S/P repair infrarenal AAA rupture Current Diet Vital 1.2 at 10ml/hr Labs/Tests Reviewed Pertinent Medications Reviewed Height 5 ft 5 in Weight 34 kg [place] Body Weight (kg) 56.81 BMI 12.4 Subjective/Other Information Consult for TF. Pt continues on BiPAP. Pt tolerating trophic feeds. Pt may need TPN due to possible risks of feeding on BiPAP. Burn Absent Trauma Absent #2 Nutrition Diagnosis Malnutrition Etiology COPD, continuous bipap, poor appetite As Evidenced by Signs and Symptoms Pt on trophic feeds, not eating well [employer]OF[employer] and now, muscle and fat loss, BMI 12.5 #1 Nutrition Diagnosis Predicted suboptimal energy intake As Evidenced by Signs and Symptoms Pt is inadequate and malnourished. Diagnosis Progress(for reassessment Resolved documentation) Is patient on ventilator? No Is Patient Ambulatory and/or Out of Bed No REE-([facility]-confined to bed) 1039.368 Kcal/Kg value to use for calculation 40 Approximate Energy Requirements Using 1360 kcal/Kg Calculation Used for Recommendations Kcal/kg Additional Notes Protein Needs: 41-51g (1.2-1. 5g/kg) Fluid Needs: 1 ml/kcal Nutrition Intervention Change Diet Order: TF Nutrition Support: Change to Osmolite 1.5 at 40ml /hr. RN will continue trophic feeds for now. Flush with 125ml q4h Kcal 1,440 Protein (gm) 60 Fluid (mL) 698 Goal #1 Meet at least 80% of kcal and protein needs via TF Anticipated Discharge Needs: Unable to determine at this time Follow-Up By: 03/14/19 Additional Comments Follow for TF tolerance
--- NOTE | 2019-03-13 15:17 | Progress Note ---
Assessment and Plan 68 yo F with 1. 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 ARF - on BIPAP 3. ruptured AAA s/p repair at [place] 4. s/p total colectomy and ileostomy at [place] 5. sepsis 2/2 PNA, UTI 6. malnutrition 7. hx CHF, EF 20-25% Plan: Patient overall is unchanged. She remains on BIPAP, not responsive or communicative . DANIELA drain output is slightly concerning due to change in color since TF were restarted yesterday. Operative records and notes reviewed from [place] - patient did have an EGD at [place] which revealed a gastric ulcer. 1. stop TF for now 2. obtain KUB now, may need to f/u with CT scan A/P with oral contrast. 3. GI ppx 4. DVT ppx 5. prn pain control 6. ostomy care - asked RN to reinforce or change ostomy bag 7. sepsis - mgmt per ID and Pulm I discussed the plan with patient's . Overall very poor prognosis. Consider hospice. Thank you, please call with questions. Subjective Date of service: 03/13/19 Narrative: Pt seen and examined. Per nursing, DANIELA drain color is milky and has been filling up very quickly during this shift. No other acute events or changes in patient's condition. No f/c Objective Vital Signs - 12hr 03/13/19 03/13/19 03/13/19 03:15 04:00 05:00 Temperature 98.8 F Pulse Rate 105 H 103 H 106 H Pulse Rate [ Anterior Bilateral Throughout] Pulse Rate [ 109 H From Monitor] Respiratory 27 H 29 H 33 H Rate Respiratory Rate [Anterior Bilateral Throughout] Blood Pressure 128/68 110/60 112/60 O2 Sat by Pulse 97 98 97 Oximetry 03/13/19 03/13/19 03/13/19 06:00 07:00 07:24 Temperature Pulse Rate 101 H 97 H Pulse Rate [ 94 H Anterior Bilateral Throughout] Pulse Rate [ From Monitor] Respiratory 33 H 28 H Rate Respiratory 23 Rate [Anterior Bilateral Throughout] Blood Pressure 106/47 104/57 O2 Sat by Pulse 96 98 96 Oximetry 03/13/19 03/13/19 03/13/19 07:46 08:00 09:00 Temperature 97.8 F Pulse Rate 95 H 102 H Pulse Rate [ Anterior Bilateral Throughout] Pulse Rate [ 109 H From Monitor] Respiratory 21 31 H Rate Respiratory Rate [Anterior Bilateral Throughout] Blood Pressure 106/49 104/52 O2 Sat by Pulse 97 96 Oximetry 03/13/19 03/13/19 03/13/19 10:00 11:00 11:33 Temperature Pulse Rate 110 H 111 H Pulse Rate [ Anterior Bilateral Throughout] Pulse Rate [ From Monitor] Respiratory 35 H 29 H Rate Respiratory Rate [Anterior Bilateral Throughout] Blood Pressure 113/56 119/64 O2 Sat by Pulse 90 94 95 Oximetry 03/13/19 03/13/19 03/13/19 12:00 12:11 13:00 Temperature 97.0 F L Pulse Rate 124 H 118 H 118 H Pulse Rate [ Anterior Bilateral Throughout] Pulse Rate [ 109 H From Monitor] Respiratory 26 H 28 H 27 H Rate Respiratory Rate [Anterior Bilateral Throughout] Blood Pressure 110/74 110/74 111/60 O2 Sat by Pulse 85 95 94 Oximetry 03/13/19 14:00 Temperature Pulse Rate 118 H Pulse Rate [ Anterior Bilateral Throughout] Pulse Rate [ From Monitor] Respiratory 26 H Rate Respiratory Rate [Anterior Bilateral Throughout] Blood Pressure 116/62 O2 Sat by Pulse 96 Oximetry - General physical appearance Narrative Exam: Gen: Not responsive. Opens eyes to painful stimulus ENT: Dobhoff with TF running. BIPAP CV: s1, S2+. tachy Resp: no audible wheezes Abd: soft, ND, NT. incision c/d/i. ostomy pink with brown stool in bag. Some leakage from inferior edge of ostomy bag. DANIELA drain thin opaque fluid in bulb well developed - Labs 03/13/19 05:17 03/13/19 05:17 Diabetes panel 03/12/19 03/13/19 Range/Units 17:42 05:17 Sodium 146 H 145 (137-145) mmol/L Potassium 3.2 L 3.1 L (3.6-5.0) mmol/L Chloride 111.6 H 110.2 H (98-107) mmol/L Carbon Dioxide 25 25 (22-30) mmol/L BUN 27 H 25 H (7-17) mg/dL Creatinine 0.3 L 0.3 L (0.7-1.2) mg/dL Glucose 116 H 157 H (65-100) mg/dL Calcium 9.2 9.2 (8.4-10.2) mg/dL Calcium panel 03/12/19 03/13/19 Range/Units 17:42 05:17 Calcium 9.2 9.2 (8.4-10.2) mg/dL Pituitary panel 03/12/19 03/13/19 Range/Units 17:42 05:17 Sodium 146 H 145 (137-145) mmol/L Potassium 3.2 L 3.1 L (3.6-5.0) mmol/L Chloride 111.6 H 110.2 H (98-107) mmol/L Carbon Dioxide 25 25 (22-30) mmol/L BUN 27 H 25 H (7-17) mg/dL Creatinine 0.3 L 0.3 L (0.7-1.2) mg/dL Glucose 116 H 157 H (65-100) mg/dL Calcium 9.2 9.2 (8.4-10.2) mg/dL Adrenal panel 03/12/19 03/13/19 Range/Units 17:42 05:17 Sodium 146 H 145 (137-145) mmol/L Potassium 3.2 L 3.1 L (3.6-5.0) mmol/L Chloride 111.6 H 110.2 H (98-107) mmol/L Carbon Dioxide 25 25 (22-30) mmol/L BUN 27 H 25 H (7-17) mg/dL Creatinine 0.3 L 0.3 L (0.7-1.2) mg/dL Glucose 116 H 157 H (65-100) mg/dL Calcium 9.2 9.2 (8.4-10.2) mg/dL
--- NOTE | 2019-03-13 18:33 | XRay Report ---
PROCEDURE: Abdomen. TECHNIQUE: Portable AP view. HISTORY: Abdominal pain. COMPARISONS: Abdomen 03/07/2019. Dictation not available. FINDINGS: The bowel gas pattern is normal. There is a Dobbhoff type feeding tube near the first portion of the duodenum. There is atherosclerotic calcification in the abdominal aorta. Midline skin val are not ed. The regional skeleton appears intact. IMPRESSION: No evidence of acute disease. This document is electronically signed by Zander Reyes MD., March 13 2019 06:31:55 PM ET
[2019-03-13] MEDS: D5W/0.45% NACL/KCL 30 MEQ 30 MEQ/1,000 ML BAG IV SCH (18:46)
[2019-03-13] MEDS: HEPARIN/ 0.45% NACL-25,000 UNIT/500 ML 25,000 UNIT/500 ML BAG IV SCH (23:01)
--- NOTE | 2019-03-13 23:31 | Cat Scan Report ---
PROCEDURE: CT ABDOMEN PELVIS WO CON TECHNIQUE: CT abdomen and pelvis without contrast HISTORY: change in abdominal drain output r/o leak COMPARISONS: Comparison is dated February 09, 2019 FINDINGS: There are large bilateral consolidating pulmonary infiltrates with additional areas of patchy opacity present in the lung bases which are new since the prior study Nonenhanced images of the liver are unremarkable. Spleen is normal in size and attenuation. There is infrarenal abdominal aortic aneurysm measuring 3.3 cm in transverse diameter which was prese nt previously incompletely evaluated due to lack of intravenous contrast. There is an NG tube within the stomach. Surgical clips are seen along contrast and midline of the abdomen. There is retained oral contrast material within multiple small bowel loops which do not appear disten ded. There is a right lower quadrant ostomy present which is new since the prior exam. There is oral contrast material within the collection. No evidence for extravasation. Drainage tube enters the pelvis through the left lower quadrant with tubing extending to the right lo wer pelvis. Right kidney demonstrates unremarkable nonenhanced appearance. Left kidney demonstrates no evidence for hydronephrosis. There is a left retroperitoneal fluid collec tion extending into the mid pelvis and around the pararenal space which is new since the prior exam c ould reflect hematoma or infection There is diffuse increased density throughout the subcutaneous soft tissues which likely reflects mar sarca IMPRESSION: Ostomy now present right lower quadrant with no evidence for small bowel distention and oral contrast material within the collection bag. Left perinephric retroperitoneal collection which is new since the prior exam. Could reflect hematoma or infection Extensive bilateral lower lobe pulmonary infiltrates new since the prior study Findings likely reflecting anasarca. NG tube in the stomach Abdominal aortic aneurysm incompletely evaluated due to lack of intravenous contrast stable in size. . This document is electronically signed by Marvin Reynolds MD., March 13 2019 11:29:35 PM ET
[2019-03-14 05:10] LABS: Hematocrit 21.9 % (30.3-42.9); Hemoglobin 7.3 gm/dl (10.1-14.3)
--- NOTE | 2019-03-14 08:18 | Progress Note ---
Assessment and Plan Cultures: Blood cultures 03/06/2019 no growth MRSA screening positive Urine culture Zakiya 10-100K Assessment: 68 y/o female with history of CHF, COPD and a recent prolonged hospitalization on 02/03/2019-02/20/2019 due to altered mental status, respiratory distress and bowel obstruction with volvulus she underwent an exploratory laparotomy and right hemicolectomy on 02/11/2019, developed persistent leukocytosis with elevated lactate likely due to bilateral pneumonia HCAP with acute respiratory failure treated with cefepime and vancomycin for 5 days. Unfortunately, on she became acutely short of breath and hypotensive and dropped her hemoglobin. CT angiogram revealed ruptured 5 cm infrarenal AAA. She was transferred to [facility]. She received AAA repair at [facility] on 02/21/19, has a maintained on heparin drip. She was also to have a nonocclusive subacute to trapeze artist yovana DVT of bilateral lower extremities. She was found to have melena on 02/23, underwent flexible sigmoidoscopy and EGD followed by exploratory laparoscopy and completion of total colectomy, abdominal washout and end ileostomy on 02/24. 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 She was transferred back to [facility]. ID consulted for new fever 102.2. 1) Severe Sepsis: no fever but some episodes of hypothermia, leukocytosis 20-->13K. Etiology most likely HAP +/- UTI. 2) HAP: prolonged complicated hospital stay in [facility] and [facility]. S/p recent total colectomy, abdominal washout and end ileostomy on 02/24. She also developed Burkholderia pneumonia ([facility] records reviewed BAL 02/23/2019 +Burkholderia cepacia treated with fortaz x 7 days, MARLYN not available), CXR bilateral infiltrates. S/p cefepime and vancomycin x 7 days until 03/13. Repeat CT abdomen shows ostomy now present right lower quadrant with no evidence for small bowel distention and oral contrast material within the collection bag, left perinephric retroperitoneal collection which is new since the prior exam, extensive bilateral lower lobe pulmonary infiltrates. 3) CAUTI ? Candiduria 4) Volvulus / recent GI bleed 5) Severe malnutrition 6) Recent large retroperitoneal hematoma, treated at [facility] Recommendations: - s/p cefepime and vancomcyin x 7 days until 03/13 - continue fluconazole 200 mg IV qday D4 of 5 - continue contact isolation Will follow. Judy Desai MD Infectious Diseases Physician Practice Coordinator [facility] ([facility]) M [phone] O [phone] Subjective Date of service: 03/14/19 Principal diagnosis: Ac hypoxemic Resp failure; Severe Anemia; AE-COPD; G.I. Bleed; Septic Shock Interval history: More alert today, no fever, some episodes of hypothermia, now on HFO2, at bedside. ROS unable to obtain Objective - Constitutional Vitals: Vital Signs Temp Pulse Resp BP Pulse Ox 97.6 F 83 25 H 111/60 96 03/14/19 05:00 03/14/19 06:00 03/14/19 06:00 03/14/19 06:00 03/14/19 06:00 Temperature -Last 24 Hours Temperature 97.6 F Temperature 97.6 F Temperature 98.1 F Temperature 97.9 F Temperature 98.6 F Temperature 97.0 F - Labs CBC & Chem 7: 03/14/19 04:37 03/13/19 05:17 Labs: Abnormal lab results 03/13/19 03/14/19 Range/Units 10:31 04:37 Hgb 7.3 L (10.1-14.3) gm/dl Hct 21.9 L (30.3-42.9) % POC Glucose 211 H (70-105)
--- NOTE | 2019-03-14 08:39 | XRay Report ---
AP CHEST: HISTORY: Followup on pulmonary infiltrates Compared to 02/2619. Bilateral pulmonary infiltrates are again identified. This could represent pneumonia or pulmonary edema. Right lung infiltrates have decreased slightly. Left lung infiltrates have increased slightly. Overall, no overwhelming change. No large pleural effusion or pneumothorax. Heart size remains within normal limits. A feeding tube is followed to the distal stomach. IMPRESSION: Bilateral infiltrates as described.
[2019-03-14] MEDS: PULMICORT IH SCH ×2 (08:48→20:50)
[2019-03-14] MEDS: BROVANA NEBU IH SCH ×2 (08:48→20:50)
[2019-03-14] MEDS ORDERED: SIMPLE SYRUP FEEDTUBE PRN ×2 (10:37)
[2019-03-14] MEDS ORDERED: PANCREAZE DR 10,500 UNIT FEEDTUBE PRN (10:37)
[2019-03-14] MEDS ORDERED: SODIUM BICARBONATE FEEDTUBE PRN (10:37)
[2019-03-14] MEDS: DIFLUCAN 200 MG/100 ML BAG IV SCH (10:42)
[2019-03-14] MEDS: PROTONIX IV SCH ×2 (10:42→22:43)
[2019-03-14] MEDS: D5W/0.45% NACL/KCL 30 MEQ 30 MEQ/1,000 ML BAG IV SCH (10:43)
[2019-03-14] MEDS: SODIUM CHLORIDE FLUSH SYRINGE 10 ML IV SCH ×2 (10:43→22:43)
--- NOTE | 2019-03-14 11:48 | Progress Note ---
Assessment and Plan Assessment and plan: Sepsis, present on admission. Etiology likely secondary to HCAP +/-UTI Continue antibiotics per ID--s/p cefepime and vancomcyin x 7 days until 03/13, continue fluconazole 200 mg IV qday Toxic metabolic encephalopathy Loren treat underlying causes. Infrarenal AAA rupture -sp surgical repair at [facility] Hypokalemia. Replete potassium. Bilat LE DVT cont heparin Drip, will need to transition to oral meds when safe to do so, will defer to vasc sx and hematology Acute resp failure with hypoxia has been on BIPAP at night and as needed. Pulmonology following Hospital-acquired pneumonia Patient with prolonged hospital stay at [facility] and [place]. CXR bilateral infiltrates. Volvulus/recent GI bleed; resolved sp total colectomy Acute blood loss anemia; 2/2 above, was transfused Acute Copd exacerbation- continue bronchodilators/nebulizers. Acute on chronic systolic CHF EF 25% cardiology consulted, following Debility etiology due to multiple surgeries and prolonged ICU stay, PT/OT and CM consult Dysphagia; ST consulted Prognosis guarded Full code status. Discussed with and plan of care at bedside. The high probability of a clinically significant, sudden or life threatening deterioration of the [respiratory] system(s) required my full and direct attention, intervention and personal management. The aggregate critical care time was [32] minutes. This time is in addition to time spent performing reported procedures but includes the following: [x] Data Review and interpretation [x] Patient assessment and monitoring of vital signs [x] Documentation [x] Medication orders and management History Interval history: Patient is 68 yo female with PMHx of CHF, COPD, who was brought to the ER by EMS initially on 02/03/19 after a fall at home, altered mental status, respiratory distress. Per EMS patient was found in severe respiratory distress, laying on the floor and covered in her feces. According to EMS the had asked a neighbor to call EMS because the patient fell on the floor and he was unable to pick her up. He states that she had been sick for a few days, she had trouble breathing, and he had been taking a lot of "goody powder" for pain. The patient was found to be confused, lethargic, hypotensive, hypothermic, tachypneic, with hemoglobin of 1.9, severe anemia. She was admitted -She was transfused, treated for severe anemia, COPD exacerbation, CHF. Respiratory failure worsened requiring intubation. She received PPI, EGD was planned but the patient was unstable to get the test. She also developed bowel obstruction, received exploratory laparoscopy, right hemicolectomy for cecal volvulus and large bowel obstruction. The patient was extubated on 02/04/19. Patient was improving and placed on a pured diet. However on 02/20/19 she became acutely short of breath and hypotensive, she again had a drop in hemoglobin. CT angiogram revealed ruptured 5 cm infrarenal AAA. She was seen by vascular surgery, and was transferred to [place]. She received AAA repair at [facility] on 02/21/19. While she was at [facility] she had ultrasound of lower extremity which showed non-occlusive subacute to chronic DVT of bilateral lower extremities, put on Heparin drip. She was found to have melena on 02/23, underwent flexible sigmoidoscopy and EGD followed by exploratory laparoscopy and completion of total colectomy, abdominal washout and end ileostomy on 02/24/19. Patient has been sent back to [facility] and re-admitted 03/06/19. Hospitalist Physical - Constitutional Vitals: Temp Pulse Resp BP Pulse Ox 97.6 F 92 H 28 H 114/68 94 03/14/19 05:00 03/14/19 09:01 03/14/19 09:01 03/14/19 09:00 03/14/19 09:00 General appearance: Present: no acute distress, cachectic, other (on BiPAP) - EENT Eyes: Present: PERRL, EOM intact ENT: hearing intact, clear oral mucosa, dentition normal - Neck Neck: Present: supple, normal ROM - Respiratory Respiratory effort: normal Respiratory: bilateral: CTA - Cardiovascular Rhythm: regular Heart Sounds: Present: S1 & S2. Absent: gallop, rub - Extremities Extremities: no ischemia, No edema, Full ROM - Abdominal General gastrointestinal: soft, non-tender, non-distended, normal bowel sounds - Integumentary Integumentary: Present: clear, warm, dry - Neurologic Neurologic: CNII-XII intact, moves all extremities Results - Labs CBC & Chem 7: 03/14/19 04:37 03/13/19 05:17 Labs: Laboratory Last Values WBC 13.1 K/mm3 (4.5-11.0) H 03/13/19 05:17 RBC 2.44 M/mm3 (3.65-5.03) L 03/13/19 05:17 Hgb 7.3 gm/dl (10.1-14.3) L 03/14/19 04:37 Hct 21.9 % (30.3-42.9) L 03/14/19 04:37 MCV 90 fl (79-97) 03/13/19 05:17 MCH 30 pg (28-32) 03/13/19 05:17 MCHC 33 % (30-34) 03/13/19 05:17 RDW 17.6 % (13.2-15.2) H 03/13/19 05:17 Plt Count 228 K/mm3 (140-440) 03/14/19 04:37 Add Manual Diff Complete 03/13/19 05:17 Total Counted 100 03/13/19 05:17 Seg Neutrophils % Intelligence Group Supervisor 03/13/19 05:17 Seg Neuts % (Manual) 90.0 % (40.0-70.0) H 03/13/19 05:17 0 % 03/13/19 05:17 5.0 % (13.4-35.0) L 03/13/19 05:17 Reactive Lymphs % (Man) 0 % 03/13/19 05:17 4.0 % (0.0-7.3) 03/13/19 05:17 1.0 % (0.0-4.3) 03/13/19 05:17 0 % (0.0-1.8) 03/13/19 05:17 0 % 03/13/19 05:17 0 % 03/13/19 05:17 0 % 03/13/19 05:17 0 % 03/13/19 05:17 Nucleated RBC % Not Reportable 03/13/19 05:17 Seg Neutrophils # Man 11.8 K/mm3 (1.8-7.7) H 03/13/19 05:17 Band Neutrophils # 0.0 K/mm3 03/13/19 05:17 0.7 K/mm3 (1.2-5.4) L 03/13/19 05:17 Abs React Lymphs (Man) 0.0 K/mm3 03/13/19 05:17 0.5 K/mm3 (0.0-0.8) 03/13/19 05:17 0.1 K/mm3 (0.0-0.4) 03/13/19 05:17 0.0 K/mm3 (0.0-0.1) 03/13/19 05:17 0.0 K/mm3 03/13/19 05:17 0.0 K/mm3 03/13/19 05:17 0.0 K/mm3 03/13/19 05:17 Blast Cells # 0.0 K/mm3 03/13/19 05:17 WBC Morphology Not Reportable 03/13/19 05:17 Hypersegmented Neuts Not Reportable 03/13/19 05:17 Hyposegmented Neuts Not Reportable 03/13/19 05:17 Hypogranular Neuts Not Reportable 03/13/19 05:17 Not Reportable 03/13/19 05:17 Not Reportable 03/13/19 05:17 Not Reportable 03/13/19 05:17 Not Reportable 03/13/19 05:17 Not Reportable 03/13/19 05:17 Not Reportable 03/13/19 05:17 Not Reportable 03/13/19 05:17 Not Reportable 03/13/19 05:17 Plt Clumps, EDTA Not Reportable 03/13/19 05:17 Not Reportable 03/13/19 05:17 Not Reportable 03/13/19 05:17 Not Reportable 03/13/19 05:17 Plt Morphology Comment Not Reportable 03/13/19 05:17 RBC Morphology Normal 03/13/19 05:17 Dimorphic RBCs Not Reportable 03/13/19 05:17 Not Reportable 03/13/19 05:17 Not Reportable 03/13/19 05:17 Not Reportable 03/13/19 05:17 Not Reportable 03/13/19 05:17 Not Reportable 03/13/19 05:17 Not Reportable 03/13/19 05:17 Not Reportable 03/13/19 05:17 Not Reportable 03/13/19 05:17 Not Reportable 03/13/19 05:17 Not Reportable 03/13/19 05:17 Not Reportable 03/13/19 05:17 Not Reportable 03/13/19 05:17 Not Reportable 03/13/19 05:17 Not Reportable 03/13/19 05:17 Not Reportable 03/13/19 05:17 Not Reportable 03/13/19 05:17 Not Reportable 03/13/19 05:17 Not Reportable 03/13/19 05:17 Not Reportable 03/13/19 05:17 Acanthocytes (Spur) Not Reportable 03/13/19 05:17 Rouleaux Not Reportable 03/13/19 05:17 Not Reportable 03/13/19 05:17 Not Reportable 03/13/19 05:17 Not Reportable 03/13/19 05:17 Not Reportable 03/13/19 05:17 Hem Pathologist Commnt No 03/13/19 05:17 PT 14.6 Sec. (12.2-14.9) 03/06/19 23:52 INR 1.17 (0.87-1.13) H 03/06/19 23:52 APTT 34.8 Sec. (24.2-36.6) 03/06/19 23:52 Heparin Anti-Xa Level 0.31 U.I./ml (0.3-0.7) 03/13/19 18:11 POC ABG pH 7.464 (7.35-7.45) H 03/10/19 09:50 POC ABG pCO2 36.4 (35-45) 03/07/19 21:24 POC ABG pO2 160 (80-105) H 03/10/19 09:50 POC ABG HCO3 13.9 (22-26 mml/L) 03/10/19 09:50 POC ABG Total CO2 14 (23-27mmol/L) 03/10/19 09:50 POC ABG O2 Sat 100 03/10/19 09:50 POC ABG Base Excess -10 ((-2) - (+3)mmol/L) 03/10/19 09:50 80 % 03/10/19 09:50 Sodium 145 mmol/L (137-145) 03/13/19 05:17 Potassium 3.1 mmol/L (3.6-5.0) L 03/13/19 05:17 Chloride 110.2 mmol/L (98-107) H 03/13/19 05:17 Carbon Dioxide 25 mmol/L (22-30) 03/13/19 05:17 13 mmol/L 03/13/19 05:17 BUN 25 mg/dL (7-17) H 03/13/19 05:17 0.3 mg/dL (0.7-1.2) L 03/13/19 05:17 Estimated GFR > 60 ml/min 03/13/19 05:17 83 % 03/13/19 05:17 Glucose 157 mg/dL (65-100) H 03/13/19 05:17 POC Glucose 211 (70-105) H 03/13/19 10:31 Calcium 9.2 mg/dL (8.4-10.2) 03/13/19 05:17 Phosphorus 3.50 mg/dL (2.5-4.5) 03/07/19 08:17 Magnesium 1.70 mg/dL (1.7-2.3) 03/12/19 17:42 0.60 mg/dL (0.1-1.2) 03/07/19 07:56 AST 22 units/L (5-40) 03/07/19 07:56 ALT 22 units/L (7-56) 03/07/19 07:56 253 units/L (35-129) H 03/07/19 07:56 21.0 umol/L (25-60) L 03/08/19 12:02 27.00 mg/dL (0.00-1.30) H 03/07/19 15:25 5.4 g/dL (6.3-8.2) L 03/07/19 07:56 2.0 g/dL (3.9-5) L 03/07/19 07:56 0.6 % 03/07/19 07:56 Marisela (Yellow) 03/07/19 18:35 Cloudy (Clear) 03/07/19 18:35 6.0 (5.0-7.0) 03/07/19 18:35 Ur Specific [place] 1.026 (1.003-1.030) 03/07/19 18:35 100 mg/dl mg/dL (Negative) 03/07/19 18:35 Neg mg/dL (Negative) 03/07/19 18:35 Neg mg/dL (Negative) 03/07/19 18:35 Mod (Negative) 03/07/19 18:35 Neg (Negative) 03/07/19 18:35 Neg (Negative) 03/07/19 18:35 < 2.0 mg/dL (<2.0) 03/07/19 18:35 Ur Leukocyte Esterase Mod (Negative) 03/07/19 18:35 123.0 /HPF (0.0-6.0) H 03/07/19 18:35 > 182.0 /HPF (0.0-6.0) 03/07/19 18:35 U Epithel Cells (Auto) 1.0 /HPF (0-13.0) 03/07/19 18:35 4+ /HPF (Negative) 03/07/19 18:35 Hyaline Casts 10 /LPF 03/07/19 18:35 3+ /HPF 03/07/19 18:35 3+ /HPF 03/07/19 18:35 Vancomycin Trough 14.8 ug/mL (5.0-20.0) 03/09/19 03:43 Blood Type A POSITIVE 03/13/19 15:47 Antibody Screen Negative 03/13/19 15:47 Active Medications - Current Medications Current Medications: Generic Name Dose Route Start Last Admin Trade Name Freq PRN Reason Stop Dose Admin Acetaminophen 650 mg 03/06/19 23:37 03/07/19 07:34 Tylenol PO 650 mg Q4H PRN Administration Pain MILD(1-3)/Fever >100.5/DOMINGUEZ Albuterol 2.5 mg 03/06/19 23:37 Proventil IH Q4HRT PRN Shortness Of Breath Lipase/Protease/Amylase 1 each 03/12/19 10:00 Juan Smith 10,500 Unit FEEDTUBE PRN PRN For Clogged Feeding Tube Arformoterol Tartrate 15 mcg 03/07/19 08:00 03/14/19 08:48 Brovana Nebu IH 15 mcg Q12HRT JOEL Administration Budesonide 0.5 mg 03/07/19 08:00 03/14/19 08:48 Pulmicort IH 0.5 mg Q12HRT JOEL Administration Dextrose 50 ml 03/07/19 13:57 03/10/19 17:01 D50w (25gm) Syringe IV 50 ml PRN PRN Administration Hypoglycemia Hydrophilic Ointment 1 applic 03/06/19 23:31 Vaseline Lip Therapy TP Q2HR PRN Dry Lips Heparin Sodium/Sodium Chloride 25,000 unit in 500 mls @ 14.28 mls/hr 03/06/19 23:45 03/13/19 23:01 Heparin/ 0.45% Nacl-25,000 Unit/500 Ml IV 1,100 units/hr TITR JOEL 22 mls/hr Administration Protocol 714 UNITS/HR Fluconazole 200 mg in 100 mls @ 100 mls/hr 03/11/19 11:00 03/14/19 10:42 Diflucan IV 100 mls/hr Q24HR JOEL Administration Protocol Potassium Chloride/Dextrose/Sod Cl 30 meq in 1,000 mls @ 75 mls/hr 03/13/19 16:00 03/14/19 10:43 D5w/0.45% Nacl/Kcl 30 Meq IV 75 mls/hr DIRECT JOEL Administration Morphine Sulfate 2 mg 03/06/19 23:37 03/10/19 08:50 Morphine IV 2 mg Q4H PRN Administration Pain, Moderate (4-6) Ondansetron HCl 4 mg 03/06/19 23:37 Zofran IV Q8H PRN Nausea And Vomiting Oxycodone/Acetaminophen 1 tab 03/06/19 23:37 03/13/19 10:16 Percocet 5/325 PO 1 tab Q6H PRN Administration Pain, Moderate (4-6) Pantoprazole Sodium 40 mg 03/07/19 10:00 03/14/19 10:42 Protonix IV 40 mg BID JOEL Administration Simple Syrup 15 ml 03/12/19 10:00 Simple Syrup FEEDTUBE PRN PRN Hypoglycemia Simple Syrup 30 ml 03/12/19 10:00 Simple Syrup FEEDTUBE PRN PRN Hypoglycemia Sodium Bicarbonate 325 mg 03/12/19 10:00 Sodium Bicarbonate FEEDTUBE PRN PRN For Clogged Feeding Tube Sodium Chloride 10 ml 03/07/19 10:00 03/14/19 10:43 Sodium Chloride Flush Syringe 10 Ml IV 10 ml BID JOEL Administration Sodium Chloride 10 ml 03/06/19 23:37 03/13/19 06:07 Sodium Chloride Flush Syringe 10 Ml IV 10 ml PRN PRN Administration LINE FLUSH Nutrition/Malnutrition Assess - Dietary Evaluation Nutrition/Malnutrition Findings: Nutrition Notes Start: 03/07/19 15:10 Freq: Status: Active Protocol: Document 03/12/19 12:54 LP (Rec: 03/12/19 13:01 LP [id number]) Nutrition Notes Need for Assessment generated from: MD Order Initial or Follow up Reassessment Current Diagnosis COPD,Hypertension,Heart Failure,Respiratory Failure Other Pertinent Diagnosis GI bleed, SIRS, Dysphagia, S/P repair infrarenal AAA rupture Current Diet Vital 1.2 at 10ml/hr Labs/Tests Reviewed Pertinent Medications Reviewed Height 5 ft 5 in Weight 34 kg [place] Body Weight (kg) 56.81 BMI 12.4 Subjective/Other Information Consult for TF. Pt continues on BiPAP. Pt tolerating trophic feeds. Pt may need TPN due to possible risks of feeding on BiPAP. 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 Diagnosis Progress(for reassessment Resolved documentation) Is patient on ventilator? No Is Patient Ambulatory and/or Out of Bed No REE-([facility]-confined to bed) 1039.368 Kcal/Kg value to use for calculation 40 Approximate Energy Requirements Using 1360 kcal/Kg Calculation Used for Recommendations Kcal/kg Additional Notes Protein Needs: 41-51g (1.2-1. 5g/kg) Fluid Needs: 1 ml/kcal Nutrition Intervention Change Diet Order: TF Nutrition Support: Change to Osmolite 1.5 at 40ml /hr. RN will continue trophic feeds for now. Flush with 125ml q4h Kcal 1,440 Protein (gm) 60 Fluid (mL) 698 Goal #1 Meet at least 80% of kcal and protein needs via TF Anticipated Discharge Needs: Unable to determine at this time Follow-Up By: 03/14/19 Additional Comments Follow for TF tolerance
--- NOTE | 2019-03-14 13:03 | Progress Note ---
Assessment and Plan 68 yo F with 1. 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 ARF - on BIPAP 3. ruptured AAA s/p repair at [place] 4. s/p total colectomy and ileostomy at [place] 5. sepsis 2/2 PNA, UTI 6. malnutrition 7. hx CHF, EF 20-25% Ct scan A/P 03/13/19 - reviewed images with Dr. Marc and official radiology report reviewed. Bilateral pulmonary infiltrates. Post surgical changes in abdomen. No extravasation of oral contrast. Some old oral contrast in rectal stump. Plan: 1. may resume TF at goal rate via dobhoff. May need to consider PEG when patient is more stable if she is unable to tolerate PO diet 2. GI ppx 3. DVT ppx 4. prn pain control 5. ostomy care 6. sepsis - mgmt per ID and Pulm 7. will leave drain in place until output starts to decrease. Will leave val in place until nutritional status improves I discussed the CT results and plan with patient's . Overall very poor prognosis. Consider hospice. Thank you, please call with questions. Subjective Date of service: 03/14/19 Narrative: Pt seen and examined. No acute events. Off BIPAP this am. Objective Vital Signs - 12hr 03/14/19 03/14/19 03/14/19 01:00 02:00 02:35 Temperature Pulse Rate 89 87 Pulse Rate [ Anterior Bilateral Throughout] Pulse Rate [ From Monitor] Respiratory 17 22 Rate Respiratory Rate [Anterior Bilateral Throughout] Blood Pressure 111/57 111/57 O2 Sat by Pulse 100 100 100 Oximetry 03/14/19 03/14/19 03/14/19 03:00 04:00 04:04 Temperature 97.6 F Pulse Rate 85 84 Pulse Rate [ Anterior Bilateral Throughout] Pulse Rate [ 109 H From Monitor] Respiratory 20 23 Rate Respiratory Rate [Anterior Bilateral Throughout] Blood Pressure 107/60 104/59 O2 Sat by Pulse 100 98 Oximetry 03/14/19 03/14/19 03/14/19 05:00 06:00 07:00 Temperature 97.6 F Pulse Rate 84 83 86 Pulse Rate [ Anterior Bilateral Throughout] Pulse Rate [ From Monitor] Respiratory 19 25 H 25 H Rate Respiratory Rate [Anterior Bilateral Throughout] Blood Pressure 104/59 111/60 126/68 O2 Sat by Pulse 99 96 92 Oximetry 03/14/19 03/14/19 03/14/19 08:00 08:01 08:48 Temperature Pulse Rate 85 90 Pulse Rate [ 87 Anterior Bilateral Throughout] Pulse Rate [ From Monitor] Respiratory 25 H Rate Respiratory 30 H Rate [Anterior Bilateral Throughout] Blood Pressure 126/68 O2 Sat by Pulse 91 Oximetry 03/14/19 03/14/19 03/14/19 08:52 09:00 09:01 Temperature Pulse Rate 85 Pulse Rate [ 92 H Anterior Bilateral Throughout] Pulse Rate [ From Monitor] Respiratory 29 H Rate Respiratory 28 H Rate [Anterior Bilateral Throughout] Blood Pressure 114/68 O2 Sat by Pulse 94 94 Oximetry - General physical appearance Narrative Exam: Gen: Awake, opens eyes spontaneously, nods yes/no at times to questions. ENT: dobhoff in place CV: s1, S2+ Resp: on hi hailee O2 Abd: soft, NT, ND. incision with val in place. ostomy bag leaking stool onto lower portion of incision. Pawel drain serous. Entire appliance removed and the skin and incision cleansed until all soilage removed. Skin prep applied to skin. Ostomy adhesive applied to lower portion of incision. New ostomy appliance cut to size and applied. Drain sponge applied to drain. - Labs 03/14/19 04:37 03/13/19 05:17
--- NOTE | 2019-03-14 13:49 | Progress Note ---
Assessment and Plan Acute hypoxemic respiratory failure, on continuous noninvasive ventilation. Bilateral DVT's Ruptured AAA s/p repair Metabolic Acidosis Acute intussusception Symptomatic anemia with positive stool guaiac. Acute chronic obstructive pulmonary disease exacerbation. Possible acute gastrointestinal bleed. Acute congestive heart failure exacerbation. Seceer Sepsis with Shock Systemic inflammatory response syndrome. Hypokalemia. Elevated serum troponin. Adult failure to thrive. - transition BIPAP to scheduled qhs with prn daytime use as tolerated - continue antiinfective's per ID rec's (Cefepime and Vancomycin) - continue anticoagulation for VTE - get ABG tomorrow and address - begin enteral nutrition via dubhoff (discussed with RN) - continue aspiration precautions - ST evaluation ongoing re: ? aspiration - continue wound care per WCT / RN - continue conservative volume management strategies (EF 20-25%) - continue to wean supplemental oxygen to keep O2 sats >/= 88-90%` - continue bronchodilators with pulmonary hygiene per RT - Strict intake and output monitoring - Maintenance of sleep -wake cycle - Mobility protocol for pressure ulcer prophylaxis - continue GI & VTE prophylaxis - Influenza and pneumonia vaccination per protocol ....... care plan discussed with in room also; seems he is leaning towards DNR +/- withdrawal CODE STATUS: FULL CODE I have spent ( >35 ) minutes with the patient w/ >50% of the time spent counseling and/or coordinating care for this patient. Counseling topics and/or how time was spent coordinating patient's care is outlined in the impression and plan above. Subjective Date of service: 03/14/19 Principal diagnosis: Ac hypoxemic Resp failure; Severe Anemia; AE-COPD; G.I. Bleed; Septic Shock Interval history: INTERVAL HISTORY: On 02/20/19 she became acutely short of breath and hypotensive, she again had a drop in hemoglobin. CT angiogram revealed ruptured 5 cm infrarenal AAA. She was seen by vascular surgery, and was transferred to [place]. She received AAA repair at [place] on 02/21/19, has a maintained on heparin drip then transferred back to [facility]. While she was at [place] she had ultrasound of lower extremity which showed non-occlusive subacute to chronic DVT of bilateral lower extremities. She was found to have melena on 02/23, underwent flexible sigmoidoscopy and EGD followed by exploratory laparoscopy and completion of total colectomy, abdominal washout and end ileostomy on 02/24/19. Patient has been sent back to [facility] and re-admitted 03/06/19. Patient is seen today for: Acute hypoxemic Resp failure; Symptomatic anemia; AE- COPD; G.I. Bleed; Acute congestive heart failure exacerbation; Hypotension; SIRS; ruptured AAA s/p repair; Metabolic Acidosis Seen and examined at bedside; 24-hour events reviewed; nursing and respiratory care staff consulted; no adverse overnight events reported to me; back on c ontinuous BIPAP; contemplating CODE STATUS; no emesis or overt aspiration; no gross bleeding Objective Vital Signs - 12hr 03/14/19 03/14/19 03/14/19 02:00 02:35 03:00 Temperature Pulse Rate 87 85 Pulse Rate [ Anterior Bilateral Throughout] Pulse Rate [ From Monitor] Respiratory 22 20 Rate Respiratory Rate [Anterior Bilateral Throughout] Blood Pressure 111/57 107/60 O2 Sat by Pulse 100 100 100 Oximetry 03/14/19 03/14/19 03/14/19 04:00 04:04 05:00 Temperature 97.6 F 97.6 F Pulse Rate 84 84 Pulse Rate [ Anterior Bilateral Throughout] Pulse Rate [ 109 H From Monitor] Respiratory 23 19 Rate Respiratory Rate [Anterior Bilateral Throughout] Blood Pressure 104/59 104/59 O2 Sat by Pulse 98 99 Oximetry 03/14/19 03/14/19 03/14/19 06:00 07:00 08:00 Temperature Pulse Rate 83 86 85 Pulse Rate [ Anterior Bilateral Throughout] Pulse Rate [ From Monitor] Respiratory 25 H 25 H Rate Respiratory Rate [Anterior Bilateral Throughout] Blood Pressure 111/60 126/68 O2 Sat by Pulse 96 92 Oximetry 03/14/19 03/14/19 03/14/19 08:01 08:48 08:52 Temperature Pulse Rate 90 Pulse Rate [ 87 Anterior Bilateral Throughout] Pulse Rate [ From Monitor] Respiratory 25 H Rate Respiratory 30 H Rate [Anterior Bilateral Throughout] Blood Pressure 126/68 O2 Sat by Pulse 91 94 Oximetry 03/14/19 03/14/19 09:00 09:01 Temperature Pulse Rate 85 Pulse Rate [ 92 H Anterior Bilateral Throughout] Pulse Rate [ From Monitor] Respiratory 29 H Rate Respiratory 28 H Rate [Anterior Bilateral Throughout] Blood Pressure 114/68 O2 Sat by Pulse 94 Oximetry Constitutional: appears uncomfortable, other (petite elderly looking CF, normocephalic and atraumatic with increased resp effort on continuous BIPAP at rest) Eyes: non-icteric ENT: oropharynx dry, other (BIPAP FFM) Neck: supple, no lymphadenopathy, no JVD Effort: mildly labored Ascultation: Bilateral: diminished breath sounds, rhonchi Percussion: Bilateral: not dull Cardiovascular: regular rate and rhythm, murmur noted (systolic) Gastrointestinal: normoactive bowel sounds, soft, non-tender, non-distended Integumentary: other (poor turgor) Extremities: no cyanosis, no edema, pink and warm, pulses normal, no ischemia or petechiae Neurologic: non-focal exam (grossly), pupils equal and round, CN II-XII normal, other (lethargic) Psychiatric: other (unable to assess) CBC and BMP: 03/14/19 04:37 03/13/19 05:17 ABG, PT/INR, D-dimer: ABG POC ABG pH 7.464 (7.35-7.45) H 03/10/19 09:50 POC ABG pO2 160 (80-105) H 03/10/19 09:50 POC ABG HCO3 13.9 (22-26 mml/L) 03/10/19 09:50 POC ABG Total CO2 14 (23-27mmol/L) 03/10/19 09:50 POC ABG O2 Sat 100 03/10/19 09:50 PT/INR, D-dimer PT 14.6 Sec. (12.2-14.9) 03/06/19 23:52 INR 1.17 (0.87-1.13) H 03/06/19 23:52 Abnormal lab findings: Abnormal Labs 03/06/19 03/06/19 03/07/19 23:52 23:52 05:57 WBC RBC Hgb 9.0 L Hct 27.6 L MCV RDW Seg Neuts % (Manual) Lymphocytes % (Manual) Seg Neutrophils # Man Lymphocytes # (Manual) Basophils # (Manual) INR 1.17 H Heparin Anti-Xa Level POC ABG pH 7.249 L POC ABG pCO2 49.2 H POC ABG pO2 73 L Sodium Potassium Chloride Carbon Dioxide BUN Creatinine Glucose POC Glucose Alkaline Phosphatase Ammonia C-Reactive Protein Total Protein Albumin Urine WBC (Auto) 03/07/19 03/07/19 03/07/19 07:19 07:56 07:56 WBC 17.1 H RBC 3.13 L Hgb 9.5 L Hct 30.1 L MCV RDW 19.5 H Seg Neuts % (Manual) 91.0 H Lymphocytes % (Manual) 3.0 L Seg Neutrophils # Man 15.6 H Lymphocytes # (Manual) 0.5 L Basophils # (Manual) 0.2 H INR Heparin Anti-Xa Level < 0.10 L POC ABG pH POC ABG pCO2 POC ABG pO2 Sodium Potassium Chloride 110.7 H Carbon Dioxide 21 L BUN 21 H Creatinine 0.2 L Glucose 63 L POC Glucose Alkaline Phosphatase 253 H Ammonia C-Reactive Protein Total Protein 5.4 L Albumin 2.0 L Urine WBC (Auto) 03/07/19 03/07/19 03/07/19 14:13 15:25 18:35 WBC RBC Hgb Hct MCV RDW Seg Neuts % (Manual) Lymphocytes % (Manual) Seg Neutrophils # Man Lymphocytes # (Manual) Basophils # (Manual) INR Heparin Anti-Xa Level POC ABG pH 7.317 L POC ABG pCO2 34.3 L POC ABG pO2 50 L Sodium Potassium Chloride Carbon Dioxide BUN Creatinine Glucose POC Glucose Alkaline Phosphatase Ammonia C-Reactive Protein 27.00 H Total Protein Albumin Urine WBC (Auto) 123.0 H 03/07/19 03/08/19 03/08/19 21:24 00:23 02:25 WBC 20.2 H RBC 2.85 L Hgb 8.7 L Hct 26.9 L MCV RDW 18.2 H Seg Neuts % (Manual) Lymphocytes % (Manual) Seg Neutrophils # Man Lymphocytes # (Manual) Basophils # (Manual) INR Heparin Anti-Xa Level 0.12 L POC ABG pH 7.319 L POC ABG pCO2 POC ABG pO2 244 H Sodium Potassium Chloride Carbon Dioxide BUN Creatinine Glucose POC Glucose Alkaline Phosphatase Ammonia C-Reactive Protein Total Protein Albumin Urine WBC (Auto) 03/08/19 03/08/19 03/08/19 02:25 12:02 12:02 WBC RBC Hgb Hct MCV RDW Seg Neuts % (Manual) Lymphocytes % (Manual) Seg Neutrophils # Man Lymphocytes # (Manual) Basophils # (Manual) INR Heparin Anti-Xa Level 0.21 L POC ABG pH POC ABG pCO2 POC ABG pO2 Sodium Potassium Chloride 111.9 H Carbon Dioxide 17 L BUN 33 H Creatinine 0.3 L Glucose 63 L POC Glucose Alkaline Phosphatase Ammonia 21.0 L C-Reactive Protein Total Protein Albumin Urine WBC (Auto) 03/08/19 03/09/19 03/09/19 18:50 03:43 03:43 WBC 20.5 H RBC 2.44 L Hgb 7.5 L Hct 22.5 L MCV RDW 18.2 H Seg Neuts % (Manual) Lymphocytes % (Manual) Seg Neutrophils # Man Lymphocytes # (Manual) Basophils # (Manual) INR Heparin Anti-Xa Level 0.13 L POC ABG pH POC ABG pCO2 POC ABG pO2 Sodium Potassium Chloride 112.0 H Carbon Dioxide 15 L BUN 37 H Creatinine 0.4 L Glucose 58 L POC Glucose Alkaline Phosphatase Ammonia C-Reactive Protein Total Protein Albumin Urine WBC (Auto) 03/09/19 03/10/19 03/10/19 03:43 09:41 09:41 WBC 18.2 H RBC 2.55 L Hgb 7.8 L Hct 25.0 L MCV 98 H RDW 19.1 H Seg Neuts % (Manual) Lymphocytes % (Manual) Seg Neutrophils # Man Lymphocytes # (Manual) Basophils # (Manual) INR Heparin Anti-Xa Level 0.15 L POC ABG pH POC ABG pCO2 POC ABG pO2 Sodium Potassium Chloride 116.0 H Carbon Dioxide 12 L BUN 35 H Creatinine 0.3 L Glucose 42 L POC Glucose Alkaline Phosphatase Ammonia C-Reactive Protein Total Protein Albumin Urine WBC (Auto) 03/10/19 03/10/19 03/10/19 09:41 09:50 16:58 WBC RBC Hgb Hct MCV RDW Seg Neuts % (Manual) Lymphocytes % (Manual) Seg Neutrophils # Man Lymphocytes # (Manual) Basophils # (Manual) INR Heparin Anti-Xa Level 0.12 L POC ABG pH 7.464 H POC ABG pCO2 POC ABG pO2 160 H Sodium Potassium Chloride Carbon Dioxide BUN Creatinine Glucose POC Glucose 58 L Alkaline Phosphatase Ammonia C-Reactive Protein Total Protein Albumin Urine WBC (Auto) 03/10/19 03/11/19 03/11/19 17:33 11:43 23:42 WBC RBC Hgb Hct MCV RDW Seg Neuts % (Manual) Lymphocytes % (Manual) Seg Neutrophils # Man Lymphocytes # (Manual) Basophils # (Manual) INR Heparin Anti-Xa Level POC ABG pH POC ABG pCO2 POC ABG pO2 Sodium Potassium Chloride Carbon Dioxide BUN Creatinine Glucose POC Glucose 214 H 123 H 154 H Alkaline Phosphatase Ammonia C-Reactive Protein Total Protein Albumin Urine WBC (Auto) 03/12/19 03/12/19 03/12/19 02:15 04:42 04:42 WBC 12.5 H RBC 2.49 L Hgb 7.3 L Hct 22.6 L MCV RDW 17.8 H Seg Neuts % (Manual) Lymphocytes % (Manual) Seg Neutrophils # Man Lymphocytes # (Manual) Basophils # (Manual) INR Heparin Anti-Xa Level POC ABG pH POC ABG pCO2 POC ABG pO2 Sodium Potassium 2.9 L* D Chloride 110.8 H Carbon Dioxide BUN 30 H Creatinine 0.3 L Glucose 133 H POC Glucose 146 H Alkaline Phosphatase Ammonia C-Reactive Protein Total Protein Albumin Urine WBC (Auto) 03/12/19 03/12/19 03/12/19 07:23 11:41 17:42 WBC RBC Hgb Hct MCV RDW Seg Neuts % (Manual) Lymphocytes % (Manual) Seg Neutrophils # Man Lymphocytes # (Manual) Basophils # (Manual) INR Heparin Anti-Xa Level 0.24 L POC ABG pH POC ABG pCO2 POC ABG pO2 Sodium 146 H Potassium 3.2 L Chloride 111.6 H Carbon Dioxide BUN 27 H Creatinine 0.3 L Glucose 116 H POC Glucose 160 H Alkaline Phosphatase Ammonia C-Reactive Protein Total Protein Albumin Urine WBC (Auto) 03/12/19 03/13/19 03/13/19 23:22 05:17 05:17 WBC 13.1 H RBC 2.44 L Hgb 7.2 L Hct 21.9 L MCV RDW 17.6 H Seg Neuts % (Manual) 90.0 H Lymphocytes % (Manual) 5.0 L Seg Neutrophils # Man 11.8 H Lymphocytes # (Manual) 0.7 L Basophils # (Manual) INR Heparin Anti-Xa Level POC ABG pH POC ABG pCO2 POC ABG pO2 Sodium Potassium 3.1 L Chloride 110.2 H Carbon Dioxide BUN 25 H Creatinine 0.3 L Glucose 157 H POC Glucose 130 H Alkaline Phosphatase Ammonia C-Reactive Protein Total Protein Albumin Urine WBC (Auto) 03/13/19 03/13/19 03/14/19 05:21 10:31 04:37 WBC RBC Hgb 7.3 L Hct 21.9 L MCV RDW Seg Neuts % (Manual) Lymphocytes % (Manual) Seg Neutrophils # Man Lymphocytes # (Manual) Basophils # (Manual) INR Heparin Anti-Xa Level POC ABG pH POC ABG pCO2 POC ABG pO2 Sodium Potassium Chloride Carbon Dioxide BUN Creatinine Glucose POC Glucose 181 H 211 H Alkaline Phosphatase Ammonia C-Reactive Protein Total Protein Albumin Urine WBC (Auto) Chest x-ray: pending Allied health notes reviewed: nursing
[2019-03-15] MEDS: MORPHINE IV PRN ×2 (02:25→11:46)
[2019-03-15] MEDS: D5W/0.45% NACL/KCL 30 MEQ 30 MEQ/1,000 ML BAG IV SCH (02:25)
[2019-03-15] MEDS: BROVANA NEBU IH SCH (08:20)
[2019-03-15] MEDS: PULMICORT IH SCH (08:20)
[2019-03-15] MEDS: DIFLUCAN 200 MG/100 ML BAG IV SCH (09:44)
[2019-03-15] MEDS: SODIUM CHLORIDE FLUSH SYRINGE 10 ML IV SCH (09:46)
[2019-03-15] MEDS ORDERED: PREVACID SOLUTAB FEEDTUBE SCH (10:00)
[2019-03-15 12:37] VITALS: BP 89/38
--- NOTE | 2019-03-15 13:26 | Progress Note ---
Assessment and Plan Cultures: Blood cultures 03/06/2019 no growth MRSA screening positive Urine culture Zakiya 10-100K Assessment: 68 y/o female with history of CHF, COPD and a recent prolonged hospitalization on 02/03/2019-02/20/2019 due to altered mental status, respiratory distress and bowel obstruction with volvulus she underwent an exploratory laparotomy and right hemicolectomy on 02/11/2019, developed persistent leukocytosis with elevated lactate likely due to bilateral pneumonia HCAP with acute respiratory failure treated with cefepime and vancomycin for 5 days. Unfortunately, on she became acutely short of breath and hypotensive and dropped her hemoglobin. CT angiogram revealed ruptured 5 cm infrarenal AAA. She was transferred to [place]. She received AAA repair at [place] on 02/21/19, has a maintained on heparin drip. She was also to have a nonocclusive subacute to dredge pipeman yovana DVT of bilateral lower extremities. She was found to have melena on 02/23, underwent flexible sigmoidoscopy and EGD followed by exploratory laparoscopy and completion of total colectomy, abdominal washout and end ileostomy on 02/24. 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 She was transferred back to [facility]. ID consulted for new fever 102.2. 1) Severe Sepsis: no fever but some episodes of hypothermia, leukocytosis 20-->13K. Etiology most likely HAP +/- UTI. 2) HAP: prolonged complicated hospital stay in [facility] and [facility]. S/p recent total colectomy, abdominal washout and end ileostomy on 02/24. 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 S/p cefepime and vancomycin x 7 days until 03/13. Repeat CT abdomen shows ostomy now present right lower quadrant with no evidence for small bowel distention and oral contrast material within the collection bag, left perinephric retroperitoneal collection which is new since the prior exam, extensive bilateral lower lobe pulmonary infiltrates. 3) CAUTI ? Candiduria 4) Volvulus / recent GI bleed 5) Severe malnutrition 6) Recent large retroperitoneal hematoma, treated at [facility] Recommendations: - s/p cefepime and vancomcyin x 7 days until 03/13 - stop fluconazole 200 mg IV qday D5 of 5 - monitor off antibiotics - continue contact isolation Will follow. Very poor prognosis, now DNR, consider hospice, discussed with and he is considering. Dr Restrepo will be covering this weekend Judy Desai MD Infectious Diseases [employer] [facility] ([facility]) M [phone] O [phone] Subjective Date of service: 03/15/19 Principal diagnosis: Ac hypoxemic Resp failure; Severe Anemia; AE-COPD; G.I. Bleed; Septic Shock Interval history: Worsening oxygenation, back on BIPAP, somnolent, at bedside. ROS unable to obtain Objective - Exam Narrative Exam: General appearance: alert in mod resp distress on BIPAP, debilitated cachectic Eyes: anicteric sclerae, moist conjunctivae; no lid-lag; PERRLA HENT: Atraumatic; oropharynx with BIPAP Neck: Trachea midline; supple, no thyromegaly or lymphadenopathy Lungs: gab coarse breath sounds CV: RRR no murmur Abdomen: Soft, midline surg wound with val, distended iliostomy and DANIELA drain Extremities:cachexia Skin: Normal temperature, turgor and texture; no rash, ulcers or subcutaneous nodules Psych: somnolent. Neuro: alert no follows simple castillo - Constitutional Vitals: Vital Signs Temp Pulse Resp BP Pulse Ox 96.8 F L 98 H 35 H 89/38 98 03/15/19 03:01 03/15/19 12:30 03/15/19 12:30 03/15/19 12:30 03/15/19 12:49 Temperature -Last 24 Hours Temperature 96.8 F Temperature 97.2 F Temperature 98.4 F - Labs CBC & Chem 7: 03/14/19 04:37 03/13/19 05:17 Labs: Abnormal lab results 03/14/19 Range/Units 13:40 POC ABG pH 7.290 L (7.35-7.45) POC ABG pCO2 49.3 H (35-45) POC ABG pO2 52 L (80-105)
--- NOTE | 2019-03-15 15:42 | Event Note ---
Date: 03/15/19 Went to see patient and informed by nursing that patient . Patient was made DNR by family earlier today. and granddaughter at bedside. I spoke with them and gave them my condolences.
--- NOTE | 2019-03-15 16:01 | Progress Note ---
Assessment and Plan Acute hypoxemic respiratory failure, on continuous noninvasive ventilation. Bilateral DVT's Ruptured AAA s/p repair Metabolic Acidosis Acute intussusception Symptomatic anemia with positive stool guaiac. Acute chronic obstructive pulmonary disease exacerbation. Possible acute gastrointestinal bleed. Acute congestive heart failure exacerbation. Seceer Sepsis with Shock Systemic inflammatory response syndrome. Hypokalemia. Elevated serum troponin. Adult failure to thrive. - transition BIPAP to scheduled qhs with prn daytime use as tolerated - continue antiinfective's per ID rec's (Cefepime and Vancomycin) - continue anticoagulation for VTE - get ABG tomorrow and address - begin enteral nutrition via dubhoff (discussed with RN) - continue aspiration precautions - ST evaluation ongoing re: ? aspiration - continue wound care per WCT / RN - continue conservative volume management strategies (EF 20-25%) - continue to wean supplemental oxygen to keep O2 sats >/= 88-90%` - continue bronchodilators with pulmonary hygiene per RT - Strict intake and output monitoring - Maintenance of sleep -wake cycle - Mobility protocol for pressure ulcer prophylaxis - continue GI & VTE prophylaxis - Influenza and pneumonia vaccination per protocol ....... care plan discussed with in room also; seems he is leaning towards withdrawal CODE STATUS: DNR I have spent ( >35 ) minutes with the patient w/ >50% of the time spent counseling and/or coordinating care for this patient. Counseling topics and/or how time was spent coordinating patient's care is outlined in the impression and plan above. Subjective Date of service: 03/15/19 Principal diagnosis: Ac hypoxemic Resp failure; Severe Anemia; AE-COPD; G.I. Bleed; Septic Shock Interval history: INTERVAL HISTORY: On 02/20/19 she became acutely short of breath and hypotensive, she again had a drop in hemoglobin. CT angiogram revealed ruptured 5 cm infrarenal AAA. She was seen by vascular surgery, and was transferred to [place]. She received AAA repair at [place] on 02/21/19, has a maintained on heparin drip then transferred back to [facility]. While she was at [place] she had ultrasound of lower extremity which showed non-occlusive subacute to chronic DVT of bilateral lower extremities. She was found to have melena on 02/23, underwent flexible sigmoidoscopy and EGD followed by exploratory laparoscopy and completion of total colectomy, abdominal washout and end ileostomy on 02/24/19. Patient has been sent back to [facility] and re-admitted 03/06/19. Patient is seen today for: Acute hypoxemic Resp failure; Symptomatic anemia; AE- COPD; G.I. Bleed; Acute congestive heart failure exacerbation; Hypotension; SIRS; ruptured AAA s/p repair; Metabolic Acidosis Seen and examined at bedside; 24-hour events reviewed; nursing and respiratory care staff consulted; no adverse overnight events reported to me; back on continuous BIPAP; still contemplating withdrawal but made her a DNR; NO emesis or overt aspiration Objective Vital Signs - 12hr 03/15/19 03/15/19 03/15/19 04:01 05:01 06:01 Pulse Rate 100 H 101 H 97 H Pulse Rate [ Anterior Bilateral Throughout] Pulse Rate [ From Monitor] Respiratory 30 H 30 H 19 Rate Respiratory Rate [Anterior Bilateral Throughout] Blood Pressure 120/68 120/68 120/68 O2 Sat by Pulse 100 100 100 Oximetry 03/15/19 03/15/19 03/15/19 07:01 08:00 08:20 Pulse Rate 102 H 102 H Pulse Rate [ 101 H Anterior Bilateral Throughout] Pulse Rate [ 101 H From Monitor] Respiratory 31 H 35 H Rate Respiratory 28 H Rate [Anterior Bilateral Throughout] Blood Pressure 120/68 122/62 O2 Sat by Pulse 100 99 Oximetry 03/15/19 03/15/19 03/15/19 08:23 08:36 09:01 Pulse Rate 98 H 98 H Pulse Rate [ 99 H Anterior Bilateral Throughout] Pulse Rate [ From Monitor] Respiratory 28 H 35 H Rate Respiratory 28 H Rate [Anterior Bilateral Throughout] Blood Pressure 122/62 122/62 O2 Sat by Pulse 97 95 Oximetry 03/15/19 03/15/19 03/15/19 10:01 11:00 11:15 Pulse Rate 103 H 102 H 104 H Pulse Rate [ Anterior Bilateral Throughout] Pulse Rate [ From Monitor] Respiratory 35 H 31 H 36 H Rate Respiratory Rate [Anterior Bilateral Throughout] Blood Pressure 122/62 122/62 122/62 O2 Sat by Pulse 97 96 92 Oximetry 03/15/19 03/15/19 03/15/19 11:31 11:45 12:00 Pulse Rate 100 H 92 H 82 Pulse Rate [ Anterior Bilateral Throughout] Pulse Rate [ 98 H From Monitor] Respiratory 34 H 31 H 30 H Rate Respiratory Rate [Anterior Bilateral Throughout] Blood Pressure 122/62 122/62 68/33 O2 Sat by Pulse 87 76 L 64 L Oximetry 03/15/19 03/15/19 03/15/19 12:15 12:20 12:30 Pulse Rate 96 H 98 H 98 H Pulse Rate [ Anterior Bilateral Throughout] Pulse Rate [ From Monitor] Respiratory 29 H 31 H 35 H Rate Respiratory Rate [Anterior Bilateral Throughout] Blood Pressure 88/40 88/40 89/38 O2 Sat by Pulse 97 98 99 Oximetry 03/15/19 12:49 Pulse Rate Pulse Rate [ Anterior Bilateral Throughout] Pulse Rate [ From Monitor] Respiratory Rate Respiratory Rate [Anterior Bilateral Throughout] Blood Pressure O2 Sat by Pulse 98 Oximetry Constitutional: appears uncomfortable, other (petite elderly looking CF, nor mocephalic and atraumatic with increased resp effort on continuous BIPAP at rest) Eyes: non-icteric ENT: oropharynx dry, other (BIPAP FFM) Neck: supple, no lymphadenopathy, no JVD Effort: mildly labored Ascultation: Bilateral: diminished breath sounds, rhonchi Percussion: Bilateral: not dull Cardiovascular: regular rate and rhythm, murmur noted (systolic) Gastrointestinal: normoactive bowel sounds, soft, non-tender, non-distended Integumentary: other (poor turgor) Extremities: no cyanosis, no edema, pink and warm, pulses normal, no ischemia or petechiae Neurologic: non-focal exam (grossly), pupils equal and round, CN II-XII normal, other (lethargic) Psychiatric: other (unable to assess) CBC and BMP: 03/14/19 04:37 03/13/19 05:17 ABG, PT/INR, D-dimer: ABG POC ABG pH 7.290 (7.35-7.45) L 03/14/19 13:40 POC ABG pCO2 49.3 (35-45) H 03/14/19 13:40 POC ABG pO2 52 (80-105) L 03/14/19 13:40 POC ABG HCO3 23.7 (22-26 mml/L) 03/14/19 13:40 POC ABG Total CO2 25 (23-27mmol/L) 03/14/19 13:40 POC ABG O2 Sat 82 03/14/19 13:40 PT/INR, D-dimer PT 14.6 Sec. (12.2-14.9) 03/06/19 23:52 INR 1.17 (0.87-1.13) H 03/06/19 23:52 Abnormal lab findings: Abnormal Labs 03/06/19 03/06/19 03/07/19 23:52 23:52 05:57 WBC RBC Hgb 9.0 L Hct 27.6 L MCV RDW Seg Neuts % (Manual) Lymphocytes % (Manual) Seg Neutrophils # Man Lymphocytes # (Manual) Basophils # (Manual) INR 1.17 H Heparin Anti-Xa Level POC ABG pH 7.249 L POC ABG pCO2 49.2 H POC ABG pO2 73 L Sodium Potassium Chloride Carbon Dioxide BUN Creatinine Glucose POC Glucose Alkaline Phosphatase Ammonia C-Reactive Protein Total Protein Albumin Urine WBC (Auto) 03/07/19 03/07/19 03/07/19 07:19 07:56 07:56 WBC 17.1 H RBC 3.13 L Hgb 9.5 L Hct 30.1 L MCV RDW 19.5 H Seg Neuts % (Manual) 91.0 H Lymphocytes % (Manual) 3.0 L Seg Neutrophils # Man 15.6 H Lymphocytes # (Manual) 0.5 L Basophils # (Manual) 0.2 H INR Heparin Anti-Xa Level < 0.10 L POC ABG pH POC ABG pCO2 POC ABG pO2 Sodium Potassium Chloride 110.7 H Carbon Dioxide 21 L BUN 21 H Creatinine 0.2 L Glucose 63 L POC Glucose Alkaline Phosphatase 253 H Ammonia C-Reactive Protein Total Protein 5.4 L Albumin 2.0 L Urine WBC (Auto) 03/07/19 03/07/19 03/07/19 14:13 15:25 18:35 WBC RBC Hgb Hct MCV RDW Seg Neuts % (Manual) Lymphocytes % (Manual) Seg Neutrophils # Man Lymphocytes # (Manual) Basophils # (Manual) INR Heparin Anti-Xa Level POC ABG pH 7.317 L POC ABG pCO2 34.3 L POC ABG pO2 50 L Sodium Potassium Chloride Carbon Dioxide BUN Creatinine Glucose POC Glucose Alkaline Phosphatase Ammonia C-Reactive Protein 27.00 H Total Protein Albumin Urine WBC (Auto) 123.0 H 03/07/19 03/08/19 03/08/19 21:24 00:23 02:25 WBC 20.2 H RBC 2.85 L Hgb 8.7 L Hct 26.9 L MCV RDW 18.2 H Seg Neuts % (Manual) Lymphocytes % (Manual) Seg Neutrophils # Man Lymphocytes # (Manual) Basophils # (Manual) INR Heparin Anti-Xa Level 0.12 L POC ABG pH 7.319 L POC ABG pCO2 POC ABG pO2 244 H Sodium Potassium Chloride Carbon Dioxide BUN Creatinine Glucose POC Glucose Alkaline Phosphatase Ammonia C-Reactive Protein Total Protein Albumin Urine WBC (Auto) 03/08/19 03/08/19 03/08/19 02:25 12:02 12:02 WBC RBC Hgb Hct MCV RDW Seg Neuts % (Manual) Lymphocytes % (Manual) Seg Neutrophils # Man Lymphocytes # (Manual) Basophils # (Manual) INR Heparin Anti-Xa Level 0.21 L POC ABG pH POC ABG pCO2 POC ABG pO2 Sodium Potassium Chloride 111.9 H Carbon Dioxide 17 L BUN 33 H Creatinine 0.3 L Glucose 63 L POC Glucose Alkaline Phosphatase Ammonia 21.0 L C-Reactive Protein Total Protein Albumin Urine WBC (Auto) 03/08/19 03/09/19 03/09/19 18:50 03:43 03:43 WBC 20.5 H RBC 2.44 L Hgb 7.5 L Hct 22.5 L MCV RDW 18.2 H Seg Neuts % (Manual) Lymphocytes % (Manual) Seg Neutrophils # Man Lymphocytes # (Manual) Basophils # (Manual) INR Heparin Anti-Xa Level 0.13 L POC ABG pH POC ABG pCO2 POC ABG pO2 Sodium Potassium Chloride 112.0 H Carbon Dioxide 15 L BUN 37 H Creatinine 0.4 L Glucose 58 L POC Glucose Alkaline Phosphatase Ammonia C-Reactive Protein Total Protein Albumin Urine WBC (Auto) 03/09/19 03/10/19 03/10/19 03:43 09:41 09:41 WBC 18.2 H RBC 2.55 L Hgb 7.8 L Hct 25.0 L MCV 98 H RDW 19.1 H Seg Neuts % (Manual) Lymphocytes % (Manual) Seg Neutrophils # Man Lymphocytes # (Manual) Basophils # (Manual) INR Heparin Anti-Xa Level 0.15 L POC ABG pH POC ABG pCO2 POC ABG pO2 Sodium Potassium Chloride 116.0 H Carbon Dioxide 12 L BUN 35 H Creatinine 0.3 L Glucose 42 L POC Glucose Alkaline Phosphatase Ammonia C-Reactive Protein Total Protein Albumin Urine WBC (Auto) 03/10/19 03/10/19 03/10/19 09:41 09:50 16:58 WBC RBC Hgb Hct MCV RDW Seg Neuts % (Manual) Lymphocytes % (Manual) Seg Neutrophils # Man Lymphocytes # (Manual) Basophils # (Manual) INR Heparin Anti-Xa Level 0.12 L POC ABG pH 7.464 H POC ABG pCO2 POC ABG pO2 160 H Sodium Potassium Chloride Carbon Dioxide BUN Creatinine Glucose POC Glucose 58 L Alkaline Phosphatase Ammonia C-Reactive Protein Total Protein Albumin Urine WBC (Auto) 03/10/19 03/11/19 03/11/19 17:33 11:43 23:42 WBC RBC Hgb Hct MCV RDW Seg Neuts % (Manual) Lymphocytes % (Manual) Seg Neutrophils # Man Lymphocytes # (Manual) Basophils # (Manual) INR Heparin Anti-Xa Level POC ABG pH POC ABG pCO2 POC ABG pO2 Sodium Potassium Chloride Carbon Dioxide BUN Creatinine Glucose POC Glucose 214 H 123 H 154 H Alkaline Phosphatase Ammonia C-Reactive Protein Total Protein Albumin Urine WBC (Auto) 03/12/19 03/12/19 03/12/19 02:15 04:42 04:42 WBC 12.5 H RBC 2.49 L Hgb 7.3 L Hct 22.6 L MCV RDW 17.8 H Seg Neuts % (Manual) Lymphocytes % (Manual) Seg Neutrophils # Man Lymphocytes # (Manual) Basophils # (Manual) INR Heparin Anti-Xa Level POC ABG pH POC ABG pCO2 POC ABG pO2 Sodium Potassium 2.9 L* D Chloride 110.8 H Carbon Dioxide BUN 30 H Creatinine 0.3 L Glucose 133 H POC Glucose 146 H Alkaline Phosphatase Ammonia C-Reactive Protein Total Protein Albumin Urine WBC (Auto) 03/12/19 03/12/19 03/12/19 07:23 11:41 17:42 WBC RBC Hgb Hct MCV RDW Seg Neuts % (Manual) Lymphocytes % (Manual) Seg Neutrophils # Man Lymphocytes # (Manual) Basophils # (Manual) INR Heparin Anti-Xa Level 0.24 L POC ABG pH POC ABG pCO2 POC ABG pO2 Sodium 146 H Potassium 3.2 L Chloride 111.6 H Carbon Dioxide BUN 27 H Creatinine 0.3 L Glucose 116 H POC Glucose 160 H Alkaline Phosphatase Ammonia C-Reactive Protein Total Protein Albumin Urine WBC (Auto) 03/12/19 03/13/1903/13/19 23:22 05:17 05:17 WBC 13.1 H RBC 2.44 L Hgb 7.2 L Hct 21.9 L MCV RDW 17.6 H Seg Neuts % (Manual) 90.0 H Lymphocytes % (Manual) 5.0 L Seg Neutrophils # Man 11.8 H Lymphocytes # (Manual) 0.7 L Basophils # (Manual) INR Heparin Anti-Xa Level POC ABG pH POC ABG pCO2 POC ABG pO2 Sodium Potassium 3.1 L Chloride 110.2 H Carbon Dioxide BUN 25 H Creatinine 0.3 L Glucose 157 H POC Glucose 130 H Alkaline Phosphatase Ammonia C-Reactive Protein Total Protein Albumin Urine WBC (Auto) 03/13/19 03/13/19 03/14/19 05:21 10:31 04:37 WBC RBC Hgb 7.3 L Hct 21.9 L MCV RDW Seg Neuts % (Manual) Lymphocytes % (Manual) Seg Neutrophils # Man Lymphocytes # (Manual) Basophils # (Manual) INR Heparin Anti-Xa Level POC ABG pH POC ABG pCO2 POC ABG pO2 Sodium Potassium Chloride Carbon Dioxide BUN Creatinine Glucose POC Glucose 181 H 211 H Alkaline Phosphatase Ammonia C-Reactive Protein Total Protein Albumin Urine WBC (Auto) 03/14/19 13:40 WBC RBC Hgb Hct MCV RDW Seg Neuts % (Manual) Lymphocytes % (Manual) Seg Neutrophils # Man Lymphocytes # (Manual) Basophils # (Manual) INR Heparin Anti-Xa Level POC ABG pH 7.290 L POC ABG pCO2 49.3 H POC ABG pO2 52 L Sodium Potassium Chloride Carbon Dioxide BUN Creatinine Glucose POC Glucose Alkaline Phosphatase Ammonia C-Reactive Protein Total Protein Albumin Urine WBC (Auto) Allied health notes reviewed: nursing
--- NOTE | 2019-04-11 13:50 | Death Summary ---
Summary - Providers Date of service: 03/15/19 Consults: 03/06/19 Consult to Case Management [CONS] Routine Services Needed at Discharge: Other Notified:: Amber Paredes Phone number called:: [phone] Was contact made?: Yes If yes, spoke with:: Amber Paredes Time called:: 09:25 Comment:: SNF placement Additional Physician Instructions: Amber Paredes stated that they were already aware of the consult and they have already seen the patient. This consult is already completed. 03/06/19 23:37 Consult to Physician [CONS] Routine Comment: Consulting Provider: DOMINIC HALL Physician Instructions: Reason For Exam: aaa fup 03/06/19 23:38 Consult to Dietitian/Nutrition [CONS] Routine Physician Instructions: Reason For Exam: Reason for Consult: Diet education 03/06/19 23:43 Occupational Therapy Evaluate and Treat [CONS] Routine Comment: Reason For Exam: debility Physical Therapy Evaluation and Treat [CONS] Routine Comment: Reason For Exam: ataxia Speech Therapy Evaluation and Treat [CONS] Routine Reason For Exam: dysphagia 03/07/19 08:13 Consult to Physician [CONS] Routine Comment: Consulting Provider: DIMAS HAYS Physician Instructions: Reason For Exam: acute resp failure 03/07/19 09:23 Consult to Physician [CONS] Routine Comment: Consulting Provider: KVNG KYLE Physician Instructions: Reason For Exam: Fever, recent sepsis 03/07/19 14:32 Consult to Physician [CONS] Routine Comment: Consulting Provider: ANSON MEI Physician Instructions: Reason For Exam: s/p bowel obstruction s/p total colectomy ileostom 03/11/19 06:49 Consult to Wound/ET Nurse [CONS] Stat Reason For Exam: wound eval 03/12/19 08:58 Consult to Dietitian/Nutrition [CONS] Routine Physician Instructions: Reason For Exam: Reason for Consult: Write/Manage Tube Feeding 03/14/19 01:34 Consult to Wound/ET Nurse [CONS] Urgent Reason For Exam: wound eval Attending: TINA MUSE - summary Date of admission: 03/06/19 18:07 Date of : 03/15/19 Disposition: 68 y/o female with history of CHF, COPD and a recent prolonged hospitalization on 02/03/2019-02/20/2019 due to altered mental status, respiratory distress and bowel obstruction with volvulus. On 02/11/2019, she underwent an exploratory laparotomy and right hemicolectomy, she developed persistent leukocytosis with elevated lactate likely due to bilateral pneumonia HCAP with acute respiratory failure. Intra-abdominal abscess ruled out by CT 02/17/2019. Of note, patient also on steroids. Treated with cefepime and vancomycin for 5 days. Unfortunately, on 02/20/19 she became acutely short of breath and hypotensive and dropped her hemoglobin. CT angiogram revealed ruptured 5 cm infrarenal AAA. She was transferred to [place]. She received AAA repair at [place] on 02/21/19, has a maintained on heparin drip then transferred back to [facility]. She was also to have a nonocclusive subacute to chronic DVT of bilateral lower extremities. She was found to have melena on 02/23, underwent flexible sigmoidoscopy and EGD followed by exploratory laparoscopy and completion of total colectomy, abdominal washout and end ileostomy on 02/24. 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 She was [facility]. Patient was noted to have severe sepsis throughout hospitalization. Repeat CT abdomen showed ostomy present right lower quadrant with no evidence for small bowel distention and oral contrast material within the collection bag, left perinephric retroperitoneal collection which was new since the prior exam, extensive bilateral lower lobe pulmonary infiltrates. Patient also had further complications with urinary tract infection/candiduria. Patient was maintained on antibiotics with ID in consultation. Patient's diagnosis remains very poor. There were some considerations for hospice that was discussed with the . Unfortunately, patient continued to deteriorate and later 03/15/19. Summary time 34 minutes.
== END 2019-03-15 15:24 | DRG 871 ==
LOC: UNDOADMIN 08:43 → CC1 08:43 → IMCU 18:07
PROVIDERS: ADMIT Internal Medicine; ATTEND Hospitalist
PROC: 4A033R1 Measurement of Arterial Saturation, Peripheral, Percutaneous Approach (ICD-10-PCS; principal; 2019-03-07)
PROC: 5A09357 Assistance with Respiratory Ventilation, Less than 24 Consecutive Hours, Continuous Positive Airway Pressure (ICD-10-PCS; 2019-03-07)
PROC: 5A09357 Assistance with Respiratory Ventilation, Less than 24 Consecutive Hours, Continuous Positive Airway Pressure (ICD-10-PCS; 2019-03-08)
PROC: 5A09357 Assistance with Respiratory Ventilation, Less than 24 Consecutive Hours, Continuous Positive Airway Pressure (ICD-10-PCS; 2019-03-09)
PROC: 5A09357 Assistance with Respiratory Ventilation, Less than 24 Consecutive Hours, Continuous Positive Airway Pressure (ICD-10-PCS; 2019-03-10)
PROC: 5A09357 Assistance with Respiratory Ventilation, Less than 24 Consecutive Hours, Continuous Positive Airway Pressure (ICD-10-PCS; 2019-03-11)
PROC: 5A09357 Assistance with Respiratory Ventilation, Less than 24 Consecutive Hours, Continuous Positive Airway Pressure (ICD-10-PCS; 2019-03-12)
PROC: 5A09357 Assistance with Respiratory Ventilation, Less than 24 Consecutive Hours, Continuous Positive Airway Pressure (ICD-10-PCS; 2019-03-13)
PROC: 5A09357 Assistance with Respiratory Ventilation, Less than 24 Consecutive Hours, Continuous Positive Airway Pressure (ICD-10-PCS; 2019-03-14)
PROC: 5A09357 Assistance with Respiratory Ventilation, Less than 24 Consecutive Hours, Continuous Positive Airway Pressure (ICD-10-PCS; 2019-03-15)
DX: A41.9 Sepsis, unspecified organism (principal); J18.9 Pneumonia, unspecified organism; E43 Unspecified severe protein-calorie malnutrition; J96.01 Acute respiratory failure with hypoxia; I50.23 Acute on chronic systolic (congestive) heart failure; G92 Toxic encephalopathy; Z68.1 Body mass index [BMI] 19.9 or less, adult; J44.0 Chronic obstructive pulmonary disease with (acute) lower respiratory infection; D62 Acute posthemorrhagic anemia; J44.1 Chronic obstructive pulmonary disease with (acute) exacerbation; K56.1 Intussusception; N39.0 Urinary tract infection, site not specified; I82.413 Acute embolism and thrombosis of femoral vein, bilateral; W18.30XA Fall on same level, unspecified, initial encounter; R62.7 Adult failure to thrive; R65.20 Severe sepsis without septic shock; E87.6 Hypokalemia; Z66 Do not resuscitate; R13.10 Dysphagia, unspecified; Z90.49 Acquired absence of other specified parts of digestive tract; Z79.899 Other long term (current) drug therapy; Y93.89 Activity, other specified; Y92.098 Other place in other non-institutional residence as the place of occurrence of the external cause; Y99.8 Other external cause status; Z93.2 Ileostomy status
CPT/HCPCS: 36415; 36600; 71045; 74018; 74176; 80048; 80053; 80202; 81001; 82140; 82803; 82962; 83735; 84100; 85007; 85014; 85018; 85025; 85027; 85049; 85520; 85610; 85730; 86140; 86850; 86900; 86901; 87040; 87086; 87116; 93005; 93010; 94640; 94660; 94760; G0378; C9113; J0692; J1450; J1644; J2270; J3370; J3480; J7070